=== PATIENT | male | born 1975 | race Caucasian/White ===

== ENCOUNTER 2022-07-16 15:59 | Emergency (ER) | payer OTHER, SELFPAY ==
[2022-07-16 16:15] VITALS: BP 117/81; PULSE 105; RESP 18; TEMP 36.9; O2SAT 96
--- NOTE | 2022-07-16 17:22 | XRR_ITS ---
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 Views: 3 or more views. COMPARISON: No relevant prior studies available. FINDINGS: Bones/joints: Severe osteoarthritis of the tibiotalar joint. Soft tissues: Normal. XR/XR ankle RT min 3V* [id number] IMPRESSION: Severe osteoarthritis of the tibiotalar joint.
[2022-07-16 17:39] VITALS: BP 155/100; PULSE 101; RESP 18; O2SAT 97
--- NOTE | 2022-07-16 17:42 | ED_ITS ---
HPI - Extremity Problem General: Chief complaint: Extremity Injury, Lower Stated complaint: tree fell on right leg Time Seen by Provider: 07/16/22 17:42 History of Present Illness: 46-year-old male patient comes in today for complaints of injury to the right ankle. Patient reports he was cutting down a tree when part of the tree came down and struck his right ankle. Patient does have a history of prior fracture to the ankle with repair. Patient appears nontoxic. Patient appears in moderate to severe pain. Associated symptoms: Deny chest pain or fever(s) Review of Systems Const: Denies: fever(s) Card: Denies: chest pain Resp: Denies: dyspnea Musc: Reports: extremity pain Physical Exam Const: COMMON NORMALS: alert HENMT: COMMON NORMALS: normocephalic HEAD & SCALP: normocephalic Resp: COMMON NORMALS: normal respiratory effort and clear to auscultation bilaterally AUSCULTATION: clear to auscultation bilaterally Cardio: COMMON NORMALS: regular rate and regular rhythm RATE: regular rate RHYTHM: regular rhythm Extremity: RIGHT LOWER EXTREMITY: Yes foot & digits (Swelling, light bruising, abrasion anterior ankle. Decreased range of velma) Right ankle: Yes inspection, Yes palpation, Yes ROM and Yes neurovascular exam (Distal pulse and cap refill i ntact) Neuro: SENSORIUM/ORIENTATION: Yes alert Skin: TRAUMA: abrasion (Superficial abrasion to the anterior right ankle) Course Vital Signs: Vital signs: Vital Signs Temperature 98.4 F 07/16/22 16:15 Pulse Rate 101 H 07/16/22 17:39 Respiratory Rate 18 07/16/22 17:39 Blood Pressure 155/100 07/16/22 17:39 Pulse Oximetry 97 07/16/22 17:39 Oxygen Delivery Me thod 07/16/22 17:39 MDM - Extremity (Nontraumatic) Medical Decision Making 46-year-old male patient comes in today for injury to the right ankle. On exam patient appears nontoxic. Patient does have a injury to the ankle with some swelling and bruising. There is also is a superficial abrasion to the anterior part of the ankle. Differential diagnosis includes but not limited to sprain, dislocation, fracture. X-ray notes significant arthritis to the ankle from his prior injury. Patient did report that he did have a history of infection in the joint. Patient was recommended to use acetaminophen ibuprofen for pain and inflammation. Hydrocodone for severe pain. And follow-up with primary care in 2 to 3 days for recheck. Patient reported understanding and agreed to plan. Discharge Plan Discharge Patient Disposition: Home Clinical Impression: Contusion of ankle, right Qualifiers: Encounter type: initial encounter Qualified Code(s): S90.01XA - Contusion of right ankle, initial encounter Condition: Stable Prescriptions: New hydrocodone-acetaminophen 5-325 mg tablet 1 tab PO Q8H PRN (Reason: pain (scale score 7-10)) Qty: 10 0RF Discharge Orders: Discharge ED (Routine); Ordered 07/16/22 Ordered By: Tk Boyle Referrals: Murray Camacho III, DO [Primary Care Provider] - Discharge Diet: Usual diet Discharge Activity: Increase activity as tolerated Patient Instructions: Musculoskeletal Pain (ED) Activity Restrictions/Additional Instructions: Elevate and rest ankle. Use ice or heat for further pain relief. Use Tylenol and ibuprofen to help control pain. Use hydrocodone for severe pain. Follow-up with primary care in 1 week for recheck. Return to ED for new concerns. Coding Level of Care Code ED Residential Recycle Driver for Chris Georges
[2022-07-16] MEDS: HYDROcodone-acetaminophen 10-325 mg Tablet 1 TAB PO (17:58)
[2022-07-16 18:30] VITALS: PULSE 92; RESP 18; O2SAT 98
== END 2022-07-16 18:33 | disposition home or self-care (01) ==
PROVIDERS: Emergency Provider Nurse Practitioner Family; PCP Family Medicine
DX: S90.01XA Contusion of right ankle, initial encounter (principal); W20.8XXA Other cause of strike by thrown, projected or falling object, initial encounter
CPT/HCPCS: 73610; 99283; E0114

== ENCOUNTER 2022-09-21 13:38 | Emergency (ER) | payer OTHER, SELFPAY ==
[2022-09-21 13:55] VITALS: PULSE 101; RESP 14; TEMP 36.8; O2SAT 95; BMI 32.1
--- NOTE | 2022-09-21 14:10 | ED_ITS ---
HPI - Male Genitourinary General: Chief complaint: Urogenital-Male Stated complaint: Unable to Urinate for 3 days Time Seen by Provider: 09/21/22 14:10 History of Present Illness: 46-year-old gentleman presenting due to urinary pain and penile discharge with concern for new recent sexual partner. Describes onset of symptoms this morning. Has had purulent discharge as well as pain with urination. Also describes pain in the perennial region however no testicular pain or swelling. No flank pain. No fevers. Denies similar episodes in the past. No other specific changes in health, exacerbating, or alleviating factors identified. Onset (ago): hour(s) Severity: severe Exacerbating factors: urination Review of Systems General: Reports: 10 or more systems reviewed and unremarkable except in HPI and below PFSH ED PFSH: Medical History (Updated 10/02/22 @ 00:06 by Abdi Gill MD) No significant past medical history Surgical History (Updated 10/02/22 @ 00:06 by Abdi Gill MD) No significant past surgical history Physical Exam Const: COMMON NORMALS: alert GENERAL APPEARANCE: cooperative and well developed HENMT: COMMON NORMALS: normocephalic and atraumatic HEAD & SCALP: normocephalic and atraumatic THROAT: posterior oropharynx normal Eye: COMMON NORMALS: conjunctivae normal CONJUNCTIVA: Yes conjunctivae normal SCLERA: sclerae normal Neck/C-Spine: COMMON NORMALS: supple GENERAL: Yes trachea midline Resp: COMMON NORMALS: clear to auscultation bilaterally EFFORT & INSPECTION: Yes able to speak in complete sentences AUSCULTATION: clear to auscultation bilaterally Cardio: COMMON NORMALS: regular rate and regular rhythm RATE: regular rate RHYTHM: regular rhythm GI: COMMON NORMALS: Soft to palpation PALPATION: Yes Soft to palpation and No Tenderness to palpation present (GI) : OTHER: Purulent discharge from the urethral meatus, tenderness of the glans. No evidence of balanitis. No testicular tenderness or swelling. No inguinal abnormalities. Extremity: GENERAL: Yes normal exam except as noted and No edema Neuro: COMMON NORMALS: moves all extremities SENSORIUM/ORIENTATION: Yes alert and No Orientation impaired Psych: COMMON NORMALS: mental status grossly normal and Normal thought process present THOUGHT PROCESS: Normal thought process present Course Vital Signs: Vital signs: Vital Signs Temperature 98.3 F 09/21/22 13:55 Pulse Rate 81 09/21/22 16:28 Respiratory Rate 16 09/21/22 16:28 Blood Pressure 149/101 09/21/22 16:28 Pulse Oximetry 94 09/21/22 16:28 Oxygen Delivery Me thod Room Air 09/21/22 16:28 MDM - Male Medical Decision Making 46-year-old gentleman presenting with urinary pain and discharge with concern over new recent sexual partner. Exam as above. Patient is nontoxic. Analgesia given. Patient unable to urinate despite analgesia. Bladder scan does not reveal significant elevation in urine volume and therefore BMP and IV fluid bolus ordered. Renal function and electrolytes unremarkable. Additional analgesia given. Discussed with patient that he will be empirically treated for sexually transmitted infection. Urinalysis and STI screen pending at time of discharge The results of ED evaluation were discussed with the patient including prescriptions and/or symptomatic cares (if applicable) including appropriate and responsible use, followup plan, and return precautions. The patient verbalized understanding and felt safe for discharge. Medical Records I reviewed the patient's medical records. Lab Data I reviewed the patient's lab results. 09/21/22 16:10 Laboratory Results Sodium 137 mmol/L (136-145) 09/21/22 16:10 Potassium 3.6 mmol/L (3.5-5.1) 09/21/22 16:10 Chloride 100 mmol/L (98-107) 09/21/22 16:10 Carbon Dioxide 23 mmol/L (22-29) 09/21/22 16:10 Anion Gap 17.6 (5-19) 09/21/22 16:10 BUN 7 mg/dL (6-20) 09/21/22 16:10 Creatinine 0.8 mg/dL (0.7-1.2) 09/21/22 16:10 GFR Calculation 104.1 mL/min (90-130) 09/21/22 16:10 Glucose 84 mg/dL (65-115) 09/21/22 16:10 Calculated Osmolality 281 mOsm/kg (285-295) L 09/21/22 16:10 Calcium 9.0 mg/dL (8.5-10.5) 09/21/22 16:10 Urine Color Red (Yellow) 09/21/22 17:25 Urine Appearance Cloudy (CLEAR) A 09/21/22 17:25 Urine pH 5 (5-7) 09/21/22 17:25 Ur Specific [place] 1.025 (1.005-1.030) 09/21/22 17:25 Urine Protein 1+ (Negative) H 09/21/22 17:25 Urine Glucose (UA) Norm (Normal) 09/21/22 17:25 Urine Ketones Negative (Negative) 09/21/22 17:25 Urine Blood 2+ (Negative) H 09/21/22 17:25 Urine Nitrate Negative (Negative) 09/21/22 17:25 Urine Bilirubin 1+ (Negative) H 09/21/22 17:25 Urine Urobilinogen 1 mg/dL (Negative) H 09/21/22 17:25 Ur Leukocyte Esterase 2+ (Negative) H 09/21/22 17:25 Urine RBC 5-10 /hpf (0-2) H 09/21/22 17:25 Urine WBC 40-55 /hpf (0-5) H 09/21/22 17:25 Ur Squamous Epith Cells 0-4 /hpf (0-5) H 09/21/22 17:25 Amorphous Sediment Not Reportable 09/21/22 17:25 Urine Bacteria Trace /hpf (NONE) 09/21/22 17:25 Urine Mucus 1+ /hpf 09/21/22 17:25 Discharge Plan Discharge Patient Disposition: Home Clinical Impression: Urethritis Condition: Stable Prescriptions: New oxycodone 5 mg tablet 5 mg PO Q4H PRN (Reason: pain) Qty: 10 0RF No Action hydrocodone-acetaminophen 5-325 mg tablet 1 tab PO Q8H PRN (Reason: pain (scale score 7-10)) Qty: 10 0RF Discharge Orders: Discharge ED (Routine); Ordered 09/21/22 Ordered By: Abdi Gill Referrals: Murray Camacho III, [Primary Care Provider] - Discharge Diet: Usual diet Discharge Activity: Resume usual activity Patient Instructions: Nonspecific Urethritis in Men (ED), Opioid Safety Activity Restrictions/Additional Instructions: Thank you for visiting the which may be due to sexually transmitted infection. This will be treated with antibiotics. You may use [id number] medications such as acetaminophen and ibuprofen for pain however please do not exceed the daily recommended dosage as listed on the packaging and please keep in mind that many namebrand medications contain the same active ingredients. Please avoid these medications if previously instructed to do so by another physician due to other underlying medical condition. I will also prescribe a short course of oxycodone for uncontrolled pain, use this cautiously as it is an opioid. Please follow-up with your primary care provider. Return to the emergency department for uncontrolled symptoms or anything else that you are concerned about and feel needs emergency department evaluation. Coding Level of Care Code ED Sound Truck Operator for Chris Georges
[2022-09-21 14:46] VITALS: RESP 16
[2022-09-21] MEDS: ketorolac 30 mg/mL INJ IM (14:46)
[2022-09-21] MEDS: morphine 4 mg/mL SDV 1 mL IM (14:46)
[2022-09-21] MEDS: metroNIDAZOLE 500 MG Tablet 2000 MG PO (14:47)
[2022-09-21] MEDS: cefTRIAXone 1,000 MG in water for injection-sterile 2.1 ML 1 MG IM (14:47)
[2022-09-21] MEDS: doxycycline 100 mg Tablet PO (14:47)
[2022-09-21] MEDS: sodium chloride 0.9% 1,000 ML 999 ML IV (16:19)
[2022-09-21 16:20] VITALS: RESP 16
[2022-09-21] MEDS: oxyCODONE 5 mg IR Tab/Cap PO (16:20)
[2022-09-21 16:28] VITALS: BP 149/101; PULSE 81; RESP 16; O2SAT 94
[2022-09-21 16:33] LABS: Anion Gap 17.6 (5-19); Blood Urea Nitrogen 7 mg/dL (6-20); Carbon Dioxide 23 mmol/L (22-29); Chloride 100 mmol/L (98-107); Glomerular Filtration Rate 104.1 mL/min (90-130); Glucose 84 mg/dL (65-115); Osmolality Calculated 281 mOsm/kg (285-295); Potassium 3.6 mmol/L (3.5-5.1); Sodium 137 mmol/L (136-145)
[2022-09-21 18:16] LABS: Add Urine Microscopic? YES; Bilirubin Urine 1+ (Negative); Blood Urine 2+ (Negative); Glucose Urine UA Norm (Normal); Ketones Urine Negative (Negative); Leukocyte Esterase Urine 2+ (Negative); Nitrate Urine Negative (Negative); Protein Urine 1+ (Negative); Specific Gravity, Urine 1.025 (1.005-1.030); Urine Appearance Cloudy (CLEAR); Urine Color Red (Yellow); Urobilinogen Urine 1 mg/dL (Negative); pH Urine 5 (5-7)
[2022-09-21 18:17] LABS: Squamous Epithelial Cell Urine 0-4 /hpf (0-5); WBC Urine 40-55 /hpf (0-5)
[2022-09-21 18:18] LABS: Add Urine Culture? Yes; Bacteria Urine TRACE /hpf; Mucus Urine 1+ /hpf
--- NOTE | 2022-09-22 17:08 | PC.NURSE ---
Patient contacted about Positive Gonorrhea and Chlamydia test. Pt advised to abstain from sexual intercourse until clear of discharge and contact sexual partners.
== END 2022-09-21 17:30 | disposition home or self-care (01) ==
PROVIDERS: Emergency Provider Emergency Medicine; PCP Family Medicine
DX: N34.2 Other urethritis (principal); Z20.2 Contact with and (suspected) exposure to infections with a predominantly sexual mode of transmission
CPT/HCPCS: 36415; 51798; 80048; 81001; 87086; 87491; 87591; 96372; 99284; J0696; J1885; J2270; J7030

== ENCOUNTER 2022-10-11 17:06 | Emergency (ER) | payer OTHER, SELFPAY ==
[2022-10-11 17:13] VITALS: PULSE 104; RESP 20; TEMP 37.1; O2SAT 94; BMI 28.2
[2022-10-11] MEDS: LORazepam 2 mg Tablet PO (17:33)
--- NOTE | 2022-10-11 17:47 | W.ED.PSYCHS ---
Documented by User: Lonnie Carrasco MD 10/15/22 17:19 HPI - Psych General: Chief Complaint: Psychiatric Symptoms Stated Complaint: psych eval Time Seen by Provider: 10/11/22 17:25 Source: patient Mode of arrival: ambulatory Limitations: no limitations History of Present Illness: 46-year-old male states that he has been under a lot of stress and he has been feeling very depressed. He states he is feels extremely depressed he is tearful and crying here. He denies any suicidal or homicidal ideations he denies any worsening improving factors. He is not on any psych meds. Associated symptoms: Reports depression; Deny suicidal ideation Review of Systems Const: Denies: fever(s), chills, body aches or change in appetite ENMT: Denies: throat pain or dental pain Card: Denies: chest pain Resp: Denies: dyspnea GI: Denies: abdominal pain, nausea, vomiting or diarrhea : Denies: dysuria Musc: Denies: neck pain or back pain Skin/Breast: Denies: rash Neuro: Denies: headache(s) Psych: Reports: depression; Denies: suicidal ideation [facility] ED PFSH: Medical History No significant past medical history Surgical History No significant past surgical history Physical Exam Const: COMMON NORMALS: patient oriented x3 HENMT: COMMON NORMALS: normocephalic and atraumatic HEAD & SCALP: normocephalic and atraumatic Eye: COMMON NORMALS: conjunctivae normal CONJUNCTIVA: Yes conjunctivae normal Neck/C-Spine: COMMON NORMALS: supple Chest: COMMONS NORMALS: normal inspection of the chest Resp: COMMON NORMALS: normal respiratory effort Cardio: COMMON NORMALS: regular rate and No murmurs present (Cardio) RATE: regular rate GI: INSPECTION: Yes normal to inspection Extremity: COMMON NORMALS: normal to inspection and full ROM Neuro: COMMON NORMALS: patient oriented x3, moves all extremities and no focal motor deficits Psych: COMMON NORMALS: mental status grossly normal, Normal thought process present and cooperative MOOD & AFFECT: Yes depressed mood, Yes sad and Yes tearful THOUGHT PROCESS: Normal thought process present THOUGHT CONTENT: No Suicidality present Skin: COMMON NORMALS: no rashes or lesions noted and no wounds GENERAL SKIN EXAM: no rashes or lesions noted Course Vital Signs: Vital signs: Vital Signs Temperature 98.8 F 10/11/22 17:13 Pulse Rate 104 H 10/11/22 17:13 Respiratory Rate 20 H 10/11/22 17:13 Pulse Oximetry 94 10/11/22 17:13 Oxygen Delivery Me thod Room Air 10/11/22 17:13 MDM - Psych Medical Decision Making Patient presents here with depression patient's care turned over to Dr. Powers for further evaluation and pending blood work. He has not made any suicidal or homicidal statements here. Lab Data 10/11/22 17:42 10/11/22 17:42 Laboratory Results WBC 3.8 10^3/uL (4.0-10.0) L 10/11/22 17:42 RBC 4.62 10^6/uL (4.1-5.3) 10/11/22 17:42 Hgb 15.6 g/dL (11.7-16.6) 10/11/22 17:42 Hct 43.0 % (42.0-52.0) 10/11/22 17:42 MCV 93.1 fl (80-94) 10/11/22 17:42 MCH 33.8 pg (28.0-34.0) 10/11/22 17:42 MCHC 36.3 g/dL (30.0-36.0) H 10/11/22 17:42 RDW 13.3 % (12.1-15.1) 10/11/22 17:42 Plt Count 188 10^3/cmm (130-400) 10/11/22 17:42 MPV 9.0 fL (7.4-10.4) 10/11/22 17:42 Neut % (Auto) 51.2 % 10/11/22 17:42 Lymph % (Auto) 36.3 % 10/11/22 17:42 [place] % (Auto) 10.3 % 10/11/22 17:42 Eos % (Auto) 1.1 % 10/11/22 17:42 Baso % (Auto) 0.8 % 10/11/22 17:42 Neut # (Auto) 1.95 10^3/uL (1.8-7.7) 10/11/22 17:42 Lymph # (Auto) 1.4 10^3/uL (0.8-4.8) 10/11/22 17:42 [place] # (Auto) 0.4 10^3/uL (0.2-0.9) 10/11/22 17:42 Eos # (Auto) 0.0 10^3/uL (0.0-0.8) 10/11/22 17:42 Baso # (Auto) 0.0 10^3/uL (0.0-0.1) 10/11/22 17:42 Nucleated RBC % (auto) 0 % 10/11/22 17:42 Nucleated RBCs # 0.0 /100WBC 10/11/22 17:42 Sodium 138 mmol/L (136-145) 10/11/22 17:42 Potassium 3.5 mmol/L (3.5-5.1) 10/11/22 17:42 Chloride 99 mmol/L (98-107) 10/11/22 17:42 Carbon Dioxide 25 mmol/L (22-29) 10/11/22 17:42 Anion Gap 17.5 (5-19) 10/11/22 17:42 BUN 15 mg/dL (6-20) 10/11/22 17:42 Creatinine 1.0 mg/dL (0.7-1.2) 10/11/22 17:42 GFR Calculation 80.4 mL/min (90-130) L 10/11/22 17:42 Glucose 100 mg/dL (65-115) 10/11/22 17:42 Calculated Osmolality 287 mOsm/kg (285-295) 10/11/22 17:42 Calcium 8.4 mg/dL (8.5-10.5) L 10/11/22 17:42 Total Bilirubin 0.8 mg/dL (0.15-1.2) 10/11/22 17:42 AST 149 U/L (0-40) H 10/11/22 17:42 ALT 51 U/L (0-41) H 10/11/22 17:42 Alkaline Phosphatase 177 U/L (40-130) H 10/11/22 17:42 Total Protein 6.5 g/dL (6.6-8.7) L 10/11/22 17:42 Albumin 4.1 g/dL (3.5-5.2) 10/11/22 17:42 Globulin 2.4 g/dL (1.3-4.6) 10/11/22 17:42 Salicylates < 0.3 mg/dL (3-10) L 10/11/22 17:42 Urine Opiates Screen Negative ng/mL (Negative) 10/11/22 18:41 Acetaminophen < 5.0 ug/mL (10-30) L 10/11/22 17:42 Ur Barbiturates Screen Negative ng/mL (Negative) 10/11/22 18:41 Ur Phencyclidine Scrn Negative ng/mL (Negative) 10/11/22 18:41 Ur Amphetamines Screen Negative ng/mL (Negative) 10/11/22 18:41 U Benzodiazepines Scrn Negative ng/mL (Negative) 10/11/22 18:41 Urine Cocaine Screen Negative ng/mL (Negative) 10/11/22 18:41 U Marijuana (THC) Screen Negative ng/mL (Negative) 10/11/22 18:41 Ethyl Alcohol 244 mg/dL (0-10) H 10/11/22 17:42 Discharge Plan Discharge Patient Disposition: Left Against Medical Advice Clinical Impression: Depression, Alcohol intoxication Condition: Stable Prescriptions: No Action hydrocodone-acetaminophen 5-325 mg tablet 1 tab PO Q8H PRN (Reason: pain (scale score 7-10)) Qty: 10 0RF oxycodone 5 mg tablet 5 mg PO Q4H PRN (Reason: pain) Qty: 10 0RF Discharge Orders: Discharge ED (Routine); Ordered 10/11/22 Ordered By: Abdi Gill Referrals: Murray Camacho III, [Primary Care Provider] - Discharge Diet: Usual diet Discharge Activity: Resume usual activity Patient Instructions: Depression (ED), Alcohol Intoxication (ED), Suicide Prevention (ED) Activity Restrictions/Additional Instructions: Thank you for visiting the emergency department. You were seen evaluate for depression. Your alcohol level was elevated consistent with alcohol intoxication. We recommend inpatient management however given your reported symptoms and adamant denial of suicidal or homicidal ideation we cannot hold you against her will. [facility] [place] [phone] If you or someone you care for is experiencing a psychiatric emergency, please call the crisis hotline ([facility]) 24-hours a day, 7 days a week at [phone]. The crisis stabilization unit on the south side ([address]) of the hospital campus has walk-in hours from 11 AM to 9 PM daily. I recommend going there tomorrow in the morning. Return for thoughts of suicide or anything else that you are concerned about and feel needs emergency department evaluation. Stand Alone Forms: Against Medical Advice Sign Out Sign Out Data: Patient Sign Out occurred on 10/11/22 at 17:58. Patient's care was discussed, and care was transferred from to Abdi Gill MD. Coding Level of Care Code ED Brand Analyst for Chg Fwd Documented by User: Abdi Gill MD 10/23/22 08:47 HPI - Psych General: Chief Complaint: Psychiatric Symptoms Stated Complaint: psych eval Time Seen by Provider: 10/11/22 17:25 PFSH ED PFSH: Medical History No significant past medical history Surgical History No significant past surgical history Course Vital Signs: Vital signs: Vital Signs Temperature 98.8 F 10/11/22 17:13 Pulse Rate 104 H 10/11/22 17:13 Respiratory Rate 20 H 10/11/22 17:13 Pulse Oximetry 94 10/11/22 17:13 Oxygen Delivery Me thod Room Air 10/11/22 17:13 MDM - Psych Medical Decision Making Patient presents here with depression patient's care turned over to Dr. Powers for further evaluation and pending blood work. He has not made any suicidal or homicidal statements here. Patient care handoff received from Dr. Carrasco pending completion of evaluation. Laboratory studies reviewed. Patient serially reassessed and achieved clinical sobriety. He continues to adamantly deny suicidal or homicidal ideation. He desires discharge. Initially he was agreeable to wait for tele consult with psychiatry service. Subsequently he decided to leave. Though he is not suicidal or homicidal he is symptoms are quite significant and therefore he left AGAINST MEDICAL ADVICE. He does have capacity to make medical decisions. Abdi Gill MD Emergency Medicine Lab Data 10/11/22 17:42 10/11/22 17:42 Laboratory Results WBC 3.8 10^3/uL (4.0-10.0) L 10/11/22 17:42 RBC 4.62 10^6/uL (4.1-5.3) 10/11/22 17:42 Hgb 15.6 g/dL (11.7-16.6) 10/11/22 17:42 Hct 43.0 % (42.0-52.0) 10/11/22 17:42 MCV 93.1 fl (80-94) 10/11/22 17:42 MCH 33.8 pg (28.0-34.0) 10/11/22 17:42 MCHC 36.3 g/dL (30.0-36.0) H 10/11/22 17:42 RDW 13.3 % (12.1-15.1) 10/11/22 17:42 Plt Count 188 10^3/cmm (130-400) 10/11/22 17:42 MPV 9.0 fL (7.4-10.4) 10/11/22 17:42 Neut % (Auto) 51.2 % 10/11/22 17:42 Lymph % (Auto) 36.3 % 10/11/22 17:42 [place] % (Auto) 10.3 % 10/11/22 17:42 Eos % (Auto) 1.1 % 10/11/22 17:42 Baso % (Auto) 0.8 % 10/11/22 17:42 Neut # (Auto) 1.95 10^3/uL (1.8-7.7) 10/11/22 17:42 Lymph # (Auto) 1.4 10^3/uL (0.8-4.8) 10/11/22 17:42 [place] # (Auto) 0.4 10^3/uL (0.2-0.9) 10/11/22 17:42 Eos # (Auto) 0.0 10^3/uL (0.0-0.8) 10/11/22 17:42 Baso # (Auto) 0.0 10^3/uL (0.0-0.1) 10/11/22 17:42 Nucleated RBC % (auto) 0 % 10/11/22 17:42 Nucleated RBCs # 0.0 /100WBC 10/11/22 17:42 Sodium 138 mmol/L (136-145) 10/11/22 17:42 Potassium 3.5 mmol/L (3.5-5.1) 10/11/22 17:42 Chloride 99 mmol/L (98-107) 10/11/22 17:42 Carbon Dioxide 25 mmol/L (22-29) 10/11/22 17:42 Anion Gap 17.5 (5-19) 10/11/22 17:42 BUN 15 mg/dL (6-20) 10/11/22 17:42 Creatinine 1.0 mg/dL (0.7-1.2) 10/11/22 17:42 GFR Calculation 80.4 mL/min (90-130) L 10/11/22 17:42 Glucose 100 mg/dL (65-115) 10/11/22 17:42 Calculated Osmolality 287 mOsm/kg (285-295) 10/11/22 17:42 Calcium 8.4 mg/dL (8.5-10.5) L 10/11/22 17:42 Total Bilirubin 0.8 mg/dL (0.15-1.2) 10/11/22 17:42 AST 149 U/L (0-40) H 10/11/22 17:42 ALT 51 U/L (0-41) H 10/11/22 17:42 Alkaline Phosphatase 177 U/L (40-130) H 10/11/22 17:42 Total Protein 6.5 g/dL (6.6-8.7) L 10/11/22 17:42 Albumin 4.1 g/dL (3.5-5.2) 10/11/22 17:42 Globulin 2.4 g/dL (1.3-4.6) 10/11/22 17:42 Salicylates < 0.3 mg/dL (3-10) L 10/11/22 17:42 Urine Opiates Screen Negative ng/mL (Negative) 10/11/22 18:41 Acetaminophen < 5.0 ug/mL (10-30) L 10/11/22 17:42 Ur Barbiturates Screen Negative ng/mL (Negative) 10/11/22 18:41 Ur Phencyclidine Scrn Negative ng/mL (Negative) 10/11/22 18:41 Ur Amphetamines Screen Negative ng/mL (Negative) 10/11/22 18:41 U Benzodiazepines Scrn Negative ng/mL (Negative) 10/11/22 18:41 Urine Cocaine Screen Negative ng/mL (Negative) 10/11/22 18:41 U Marijuana (THC) Screen Negative ng/mL (Negative) 10/11/22 18:41 Ethyl Alcohol 244 mg/dL (0-10) H 10/11/22 17:42 Discharge Plan Discharge Patient Disposition: Left Against Medical Advice Clinical Impression: Depression, Alcohol intoxication Condition: Stable Prescriptions: No Action hydrocodone-acetaminophen 5-325 mg tablet 1 tab PO Q8H PRN (Reason: pain (scale score 7-10)) Qty: 10 0RF oxycodone 5 mg tablet 5 mg PO Q4H PRN (Reason: pain) Qty: 10 0RF Discharge Orders: Discharge ED (Routine); Ordered 10/11/22 Ordered By: Abdi Gill Referrals: Murray Camacho III, [Primary Care Provider] - Discharge Diet: Usual diet Discharge Activity: Resume usual activity Patient Instructions: Depression (ED), Alcohol Intoxication (ED), Suicide Prevention (ED) Activity Restrictions/Additional Instructions: Thank you for visiting the emergency department. You were seen evaluate for depression. Your alcohol level was elevated consistent with alcohol intoxication. We recommend inpatient management however given your reported symptoms and adamant denial of suicidal or homicidal ideation we cannot hold you against her will. [facility] [place] [phone] If you or someone you care for is experiencing a psychiatric emergency, please call the crisis hotline ([employer]) 24-hours a day, 7 days a week at [phone]. The crisis stabilization unit on the south side ([address]) of the hospital campus has walk-in hours from 11 AM to 9 PM daily. I recommend going there tomorrow in the morning. Return for thoughts of suicide or anything else that you are concerned about and feel needs emergency department evaluation. Stand Alone Forms: Against Medical Advice Sign Out Sign Out Data: Patient Sign Out occurred on 10/11/22 at 17:58. Patient's care was discussed, and care was transferred from to Abdi Gill MD. Coding Level of Care Code ED Brand Analyst for Chris Georges
[2022-10-11 17:49] LABS: Basophils % 0.8 %; Eosinophils % 1.1 %; Hemoglobin 15.6 g/dL (11.7-16.6); Lymphocytes # 1.4 10^3/uL (0.8-4.8); Lymphocytes % 36.3 %; Mean Corpuscular HGB Conc 36.3 g/dL (30.0-36.0); Mean Corpuscular Hemoglobin 33.8 pg (28.0-34.0); Mean Corpuscular Volume 93.1 fl (80-94); Monocytes # 0.4 10^3/uL (0.2-0.9); Monocytes % 10.3 %; Neutrophils # 1.95 10^3/uL (1.8-7.7); Neutrophils % 51.2 %; Nucleated Red Blood Cells % 0 %; Platelet Count 188 10^3/cmm (130-400); Red Blood Count 4.62 10^6/uL (4.1-5.3); Red Cell Distribution Width 13.3 % (12.1-15.1); White Blood Count 3.8 10^3/uL (4.0-10.0)
[2022-10-11] MEDS: ondansetron 4 MG Tablet PO (18:00)
--- NOTE | 2022-10-11 18:01 | PC.NURSE ---
PT IN ROOM SITTING CALM IN A CHAIR
[2022-10-11 18:07] LABS: Alanine Aminotransferase 51 U/L (0-41); Albumin Level 4.1 g/dL (3.5-5.2); Alcohol Level 244 mg/dL (0-10); Alkaline Phosphatase 177 U/L (40-130); Anion Gap 17.5 (5-19); Aspartate Amino Transferase 149 U/L (0-40); Blood Urea Nitrogen 15 mg/dL (6-20); Calcium 8.4 mg/dL (8.5-10.5); Carbon Dioxide 25 mmol/L (22-29); Chloride 99 mmol/L (98-107); Globulin 2.4 g/dL (1.3-4.6); Glomerular Filtration Rate 80.4 mL/min (90-130); Glucose 100 mg/dL (65-115); Osmolality Calculated 287 mOsm/kg (285-295); Potassium 3.5 mmol/L (3.5-5.1); Sodium 138 mmol/L (136-145); Total Bilirubin 0.8 mg/dL (0.15-1.2); Total Protein 6.5 g/dL (6.6-8.7)
[2022-10-11 18:11] LABS: Acetaminophen < 5.0 ug/mL (10-30); Salicylate < 0.3 mg/dL (3-10)
[2022-10-11] MEDS: ondansetron 2 mg/ML SDV 2 mL 4 MG IM (19:40)
[2022-10-11 20:00] LABS: Amphetamines Screen Urine Negative (Negative); Barbiturates Screen Urine Negative (Negative); Benzodiazepines Screen Urine Negative (Negative); Cocaine Screen Urine Negative (Negative); Opiate Screen Urine Negative (Negative); PCP Screen Urine Negative (Negative); THC Screen Urine Negative (Negative)
[2022-10-11] MEDS: LORazepam 2 mg/mL INJ 1 mL 1 MG IM (20:09)
--- NOTE | 2022-10-11 21:26 | PC.NURSE ---
PT VERBILIZED TO ME THAT HE IS SAD AND JUST WANTS TO GO HOME PT IS IN ROOM WITH FAMILY AND SERVICE DOG. PT IS SITTING ON EDGE OF BED ROCKING, VISIBLE ANXIOUS AND SAD.
[2022-10-11] MEDS: nicotine 14 mg Patch 1 PATCH TRANSDERMA (21:59)
--- NOTE | 2022-10-11 22:53 | PC.NURSE ---
TWO NURSES HAVE TRIED TO REACH DR HOYOS 6/7 TIMES WITH NO ANSWER. PT JUST WANTS TO GO HOME AND FOLLOW UP WITH [facility] TOMORROW .
== END 2022-10-11 23:02 | disposition left against medical advice (07) ==
PROVIDERS: Emergency Medicine; Emergency Provider Emergency Medicine; PCP Family Medicine
DX: F32.A Depression, unspecified (principal); F10.129 Alcohol abuse with intoxication, unspecified; Y90.8 Blood alcohol level of 240 mg/100 ml or more
CPT/HCPCS: 36415; 80053; 80306; 80307; 85025; 96372; 99284; J2060; J2405; Q0162

== ENCOUNTER 2022-11-03 17:19 | Emergency (ER) | payer OTHER, SELFPAY ==
--- NOTE | 2022-11-03 17:41 | ECG_ITS ---
[facility] Test Date: 2022-11-03 Pat Name: Trevor Martin Department: Room: Gender: Male Sap Sd Analyst: : 1975 Requested By: Rojas Brito Order Number: [id number] Vincent MD: Toan Nova M.D. Measurements Intervals [place] Rate: 111 P: 35 [place]: 142 QRS: 24 QRSD: 73 T: 24 QT: 297 QTc: 405 Interpretive Statements SINUS TACHYCARDIA No previous ECG available for comparison Electronically Signed On 11-05-2022 8:37:15 CDT by Toan Nova M.D. [id number]
[2022-11-03 17:47] VITALS: BP 168/87; PULSE 112; RESP 22; TEMP 38.4; O2SAT 93
--- NOTE | 2022-11-03 17:52 | PC.NURSE ---
Notified Dr. Keane for triage nurse that patient meets sepsis criteria.
--- NOTE | 2022-11-03 18:20 | XRR_ITS ---
PROCEDURE INFORMATION: Exam: XR Chest Exam date and time: 11/03/2022 7:07 PM Age: 46 years old Clinical indication: Shortness of breath; Additional info: SOB TECHNIQUE: Imaging protocol: Radiologic exam of the chest. Views: 1 view. COMPARISON: No relevant prior studies available. FINDINGS: Lungs: Peribronchial thickening. No consolidation. Pleural spaces: Unremarkable. No pleural effusion. No pneumothorax. Heart/Mediastinum: Unremarkable. No cardiomegaly. Bones/joints: Unremarkable. XR/XR chest 1V portable [id number] IMPRESSION: Peribronchial thickening suggestive of an infectious or inflammatory bronchitis.
--- NOTE | 2022-11-03 18:21 | ECG_ITS ---
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 Measurements Intervals [place] Rate: 103 P: 19 [place]: 144 QRS: 24 QRSD: 81 T: 34 QT: 298 QTc: 392 Interpretive Statements SINUS TACHYCARDIA No previous ECG available for comparison Electronically Signed On 11-05-2022 8:33:05 CDT by Toan Nova M.D. [id number]
[2022-11-03 19:06] LABS: Basophils % 0.3 %; Eosinophils # 0.1 10^3/uL (0.0-0.8); Eosinophils % 1.3 %; Hematocrit 42.4 % (42.0-52.0); Hemoglobin 14.2 g/dL (11.7-16.6); Lymphocytes # 0.4 10^3/uL (0.8-4.8); Lymphocytes % 5.5 %; Mean Corpuscular HGB Conc 33.5 g/dL (30.0-36.0); Mean Corpuscular Volume 101.4 fl (80-94); Mean Platelet Volume 9.3 fL (7.4-10.4); Monocytes # 0.5 10^3/uL (0.2-0.9); Monocytes % 6.2 %; Neutrophils % 86.4 %; Nucleated Red Blood Cells % 0 %; Platelet Count 389 10^3/cmm (130-400); Red Blood Count 4.18 10^6/uL (4.1-5.3); Red Cell Distribution Width 17.9 % (12.1-15.1); White Blood Count 7.9 10^3/uL (4.0-10.0)
[2022-11-03 19:07] LABS: SARS Covid-2 Antigen negative (Negative)
[2022-11-03 19:11] LABS: Lactic Sepsis W/Reflex 1.3 mmol/L (0.5-2.2)
[2022-11-03 19:17] LABS: Troponin(5th) Baseline 11 ng/L (0-15)
[2022-11-03 19:21] LABS: Alanine Aminotransferase 32 U/L (0-41); Albumin Level 4.2 g/dL (3.5-5.2); Alkaline Phosphatase 165 U/L (40-130); Anion Gap 11.9 (5-19); Aspartate Amino Transferase 42 U/L (0-40); Blood Urea Nitrogen 6 mg/dL (6-20); Calcium 9.2 mg/dL (8.5-10.5); Carbon Dioxide 27 mmol/L (22-29); Chloride 99 mmol/L (98-107); Creatine Phosphokinase 161 U/L (39-308); Globulin 2.9 g/dL (1.3-4.6); Glomerular Filtration Rate 72.1 mL/min (90-130); Glucose 106 mg/dL (65-115); NT Pro B Type Natriuretic Pept 545 pg/mL (0-125); Osmolality Calculated 276 mOsm/kg (285-295); Potassium 3.9 mmol/L (3.5-5.1); Sodium 134 mmol/L (136-145); Total Bilirubin 0.4 mg/dL (0.15-1.2); Total Protein 7.1 g/dL (6.6-8.7)
[2022-11-03] MEDS: sodium chloride 0.9% 1,000 ML 999 ML IV (19:23)
[2022-11-03 19:24] LABS: D Dimer 0.46 ug/mIFEU (0-0.59)
[2022-11-03] MEDS: ondansetron 2 mg/ML SDV 2 mL 4 MG IVP (19:29)
[2022-11-03] MEDS: dexamethasone 10 mg/mL INJ IVP (19:29)
[2022-11-03] MEDS: ketorolac 30 mg/mL INJ IVP (19:29)
[2022-11-03] MEDS: cefTRIAXone 1,000 MG in sodium chloride 0.9% (plus) 50 ML 100 MG IV (19:30)
[2022-11-03] MEDS: morphine 4 mg/mL SDV 1 mL IVP ×2 (19:30→20:44)
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
[2022-11-03 19:52] VITALS: BP 152/96; PULSE 98; RESP 26; TEMP 37.8; O2SAT 90
[2022-11-03] MEDS: ipratropium-albuterol 3 mL Neb INHALATION (20:04)
[2022-11-03 20:05] VITALS: PULSE 95; RESP 18; O2SAT 96
[2022-11-03 20:07] VITALS: PULSE 95; RESP 18; O2SAT 96
[2022-11-03 20:39] LABS: Troponin 5 2HR Delta -0.6 ABS# (0-10)
[2022-11-03] MEDS: azithromycin 250 mg Tablet 500 MG PO (20:44)
[2022-11-03] MEDS: oxyCODONE-APAP 5-325 mg Tablet 2 TAB PO (21:17)
[2022-11-03 21:21] VITALS: BP 155/93; PULSE 85; RESP 16; O2SAT 92
== END 2022-11-03 21:22 | disposition home or self-care (01) ==
PROVIDERS: Nurse Practitioner; Emergency Provider Emergency Medicine; PCP Family Medicine
DX: J40 Bronchitis, not specified as acute or chronic (principal); Z20.822 Contact with and (suspected) exposure to COVID-19
CPT/HCPCS: 36415; 71045; 80053; 82550; 83605; 83880; 84484; 85025; 85378; 87040; 87426; 93005; 94640; 96374; 96375; 99285; J0696; J1100; J1885; J2270; J2405; J7030; Q0144

== ENCOUNTER 2023-09-11 11:19 | Emergency (ER) | payer OTHER, SELFPAY ==
[2023-09-11 11:25] VITALS: BP 161/50; PULSE 122; TEMP 36.7; O2SAT 97; BMI 31.2
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
[2023-09-11 12:01] VITALS: PULSE 118; RESP 24; O2SAT 95
[2023-09-11] MEDS: LORazepam 2 mg/mL INJ 10 mL MDV IVP (12:10)
[2023-09-11 12:12] LABS: Basophils # 0.1 10^3/uL (0.0-0.1); Basophils % 1.1 %; Eosinophils # 0.1 10^3/uL (0.0-0.8); Eosinophils % 1.3 %; Hematocrit 45.3 % (37-53); Lymphocytes # 1.3 10^3/uL (0.8-4.8); Mean Corpuscular HGB Conc 35.3 g/dL (30-55); Mean Corpuscular Hemoglobin 32.4 pg (27-33); Mean Corpuscular Volume 91.7 fl (82-101); Mean Platelet Volume 9.1 fL (7.4-10.4); Monocytes # 0.8 10^3/uL (0.2-0.9); Monocytes % 16.3 %; Neutrophils # 2.53 10^3/uL (1.8-7.7); Neutrophils % 54.1 %; Nucleated Red Blood Cells % 0 %; Platelet Count 266 10^3/cmm (157-399); Red Blood Count 4.94 10^6/uL (3.85-5.65); Red Cell Distribution Width 12.9 % (12.1-15.1); White Blood Count 4.67 10^3/uL (3.29-11.43)
[2023-09-11 12:28] LABS: Alanine Aminotransferase 286 U/L (0-41); Alcohol Level 263 mg/dL (0-10); Alkaline Phosphatase 203 U/L (40-130); Anion Gap 19.8 (5-19); Aspartate Amino Transferase 393 U/L (0-40); Blood Urea Nitrogen 15 mg/dL (6-20); Calcium 8.2 mg/dL (8.5-10.5); Carbon Dioxide 24 mmol/L (22-29); Chloride 102 mmol/L (98-107); Creatinine Clr Calc Pharmacy 103.3971; Globulin 3.2 g/dL (1.3-4.6); Glomerular Filtration Rate 64.9 mL/min (90-130); Glucose 96 mg/dL (65-115); Osmolality Calculated 295 mOsm/kg (285-295); Potassium 3.8 mmol/L (3.5-5.1); Sodium 142 mmol/L (136-145); Total Bilirubin 1.4 mg/dL (0.15-1.2); Total Protein 7.2 g/dL (6.6-8.7)
[2023-09-11 12:31] LABS: Acetaminophen < 5.0 ug/mL (10-30); Creatine Phosphokinase 636 U/L (39-308); Salicylate < 0.3 mg/dL (3-10)
[2023-09-11 12:40] VITALS: BP 150/107; PULSE 92; O2SAT 93
--- NOTE | 2023-09-11 12:48 | PC.NURSE ---
Assumed care of patient @ 1303. Rounding with patient, He reports that the meds he was given did alright .
--- NOTE | 2023-09-11 13:05 | PC.PHAR ---
[facility]. PT STATES DOCTOR PRESCRIBED STRATTERA 40 MG DAILY FOR 1 WEEK THEN INCREASE TO 80MG DAILY. [facility] 80MG [facility] AND PT TOOK IT. WILL NO LONGER BE TAKING THIS MEDICATION.
[2023-09-11 13:11] LABS: Amphetamines Screen Urine Negative (Negative); Barbiturates Screen Urine Negative (Negative); Benzodiazepines Screen Urine Negative (Negative); Cocaine Screen Urine Negative (Negative); Opiate Screen Urine Negative (Negative); PCP Screen Urine Negative (Negative); THC Screen Urine Positive (Negative)
[2023-09-11 14:33] VITALS: BP 120/89; PULSE 92; RESP 18; O2SAT 95
== END 2023-09-11 14:36 | disposition home or self-care (01) ==
PROVIDERS: Emergency Provider Emergency Medicine; PCP Family Medicine
DX: F41.9 Anxiety disorder, unspecified (principal)
CPT/HCPCS: 80053; 80306; 80307; 82550; 85025; 96374; 99284; J2060

== ENCOUNTER 2023-10-29 16:28 | Inpatient (IN) | payer OTHER, SELFPAY ==
[2023-10-29] VITALS (18 sets, daily range): BP systolic 131–152; BP diastolic 84–109; PULSE 95–115; RESP 18–35; TEMP 36.4; O2SAT 90–95; BMI 27.8
--- NOTE | 2023-10-29 16:49 | ED.C_ITS ---
HPI - Psych 2 General: Chief Complaint: Psychiatric Symptoms Stated Complaint: 11 not eaten, very little water, Alcohol withdr. Time Seen by Provider: 10/29/23 16:36 Source: patient and family Mode of arrival: ambulatory Limitations: no limitations History of Present Illness: 47-year-old male is here with his mother with suicidal ideations. Patient states that he does no longer wants to live and he has not been eating over the last 2 weeks and has been drinking alcohol heavily stating that he just wants to . He has also been having vomiting he states over the last 2 days. He denies any abdominal pain denies any fevers. Associated symptoms: Reports depression and suicidal ideation Review of Systems 2 Const: Denies: fever(s), chills or body aches ENMT: Denies: throat pain or dental pain Card: Denies: chest pain Resp: Denies: dyspnea GI: Reports: nausea and vomiting; Denies: abdominal pain or diarrhea Musc: Denies: neck pain or back pain Skin/Breast: Denies: rash Neuro: Denies: headache(s) Psych: Reports: depression and suicidal ideation PFS ED 2 PFSH: Medical History No significant past medical history Surgical History No significant past surgical history Physical Exam 2 Const: COMMON NORMALS: no acute distress, patient oriented x3 and healthy appearing HENMT: COMMON NORMALS: normocephalic and atraumatic HEAD & SCALP: n ormocephalic and atraumatic Neck/C-Spine: COMMON NORMALS: full ROM and supple Chest: COMMONS NORMALS: normal inspection of the chest Resp: COMMON NORMALS: normal respiratory effort Cardio: COMMON NORMALS: regular rate, regular rhythm and No murmurs present (Cardio) RATE: regular rate RHYTHM: regular rhythm GI: COMMON NORMALS: Normal to inspection, nondistended, normoactive bowel sounds present, Soft to palpation, non-tender and no masses PALPATION: Yes Soft to palpation Extremity: COMMON NORMALS: normal to inspection and full ROM Neuro: COMMON NORMALS: patient oriented x3, moves all extremities and no focal motor deficits Psych: COMMON NORMALS: mental status grossly normal, Normal thought process present and cooperative MOOD & AFFECT: Yes depressed mood THOUGHT PROCESS: Normal thought process present THOUGHT CONTENT: Yes Suicidality present Skin: COMMON NORMALS: no rashes or lesions noted and no wounds GENERAL SKIN EXAM: no rashes or lesions noted Course 2 Vital Signs: Vital signs: Vital Signs Temperature 97.6 F 10/29/23 16:30 Pulse Rate 103 H 10/29/23 19:52 Respiratory Rate 18 10/29/23 19:52 Blood Pressure 143/109 10/29/23 19:52 Pulse Oximetry 90 10/29/23 19:52 Oxygen Delivery Me thod Room Air 10/29/23 16:30 [facility] - Psych Medical Decision Making Patient presents for suicidal ideation he is placed on a 96-hour hold he is also had vomiting found to have elevated liver enzymes likely from his alcoholism. CT ultrasound showed no signs of common bile duct dilatation spoke to the hospitalist who will admit and also spoke to Dr. Canela of psychiatry who is consulted Medical Records I reviewed the patient's medical records. Lab Data I reviewed the patient's lab results. 10/29/23 17:24 10/29/23 17:24 Radiology Impressions Abdomen/Pelvis CT 10/29/23 18:00 IMPRESSION: 1. Nonspecific gallbladder distension. Correlation with ultrasound may be helpful. 2. Question mild haziness about the pancreas or possible motion artifact. Correlate with pancreatic enzymes. Laboratory Results WBC 4.65 10^3/uL (3.29-11.43) 10/29/23 17:24 RBC 4.73 10^6/uL (3.85-5.65) 10/29/23 17:24 Hgb 15.10 g/dL (11.27-16.99) 10/29/23 17: Hct 41.4 % (37-53) 10/29/23 17:24 MCV 87.5 fl (82-101) 10/29/23 17: MCH 31.9 pg (27-33) 10/29/23 17: MCHC 36.5 g/dL (30-55) 10/29/23 17: RDW 13.0 % (12.1-15.1) 10/29/23 17:24 Plt Count 145 10^3/cmm (157-399) L 10/29/23 17: MPV 10.3 fL (7.4-10.4) 10/29/23 17:24 Neut % (Auto) 63.9 % 10/29/23 17:24 Lymph % (Auto) 21.3 % 10/29/23 17:24 [place] % (Auto) 14.0 % 10/29/23 17:24 Eos % (Auto) 0.2 % 10/29/23 17:24 Baso % (Auto) 0.4 % 10/29/23 17:24 Neut # (Auto) 2.97 10^3/uL (1.8-7.7) 10/29/23 17:24 Lymph # (Auto) 1.0 10^3/uL (0.8-4.8) 10/29/23 17:24 [place] # (Auto) 0.7 10^3/uL (0.2-0.9) 10/29/23 17:24 Eos # (Auto) 0.0 10^3/uL (0.0-0.8) 10/29/23 17:24 Baso # (Auto) 0.0 10^3/uL (0.0-0.1) 10/29/23 17:24 Nucleated RBC % (auto) 0 % 10/29/23 17: Nucleated RBCs # 0.0 /100WBC 10/29/23 17: PT 14.50 SECONDS (12.1-14.9) 10/29/23 18:55 INR 1.09 (0.8-1.2) 10/29/23 18:55 Sodium 136 mmol/L (136-145) 10/29/23 17:24 Potassium 3.4 mmol/L (3.5-5.1) L 10/29/23 17:24 Chloride 93 mmol/L (98-107) L 10/29/23 17:24 Carbon Dioxide 28 mmol/L (22-29) 10/29/23 17:24 Anion Gap 18.4 (5-19) 10/29/23 17:24 BUN 14 mg/dL (6-20) 10/29/23 17:24 Creatinine 0.9 mg/dL (0.7-1.2) 10/29/23 17:24 GFR Calculation 90.4 mL/min (90-130) 10/29/23 17:24 Glucose 150 mg/dL (65-115) H 10/29/23 17:24 Calculated Osmolality 285 mOsm/kg (285-295) 10/29/23 17:24 Calcium 7.8 mg/dL (8.5-10.5) L 10/29/23 17:24 Total Bilirubin 3.2 mg/dL (0.15-1.2) H 10/29/23 17:24 AST 527 U/L (0-40) H 10/29/23 17:24 ALT 373 U/L (0-41) H 10/29/23 17:24 Alkaline Phosphatase 350 U/L (40-130) H 10/29/23 17:24 Ammonia 32 umol/L (16-60) 10/29/23 18:55 Total Protein 6.3 g/dL (6.6-8.7) L 10/29/23 17:24 Albumin 3.3 g/dL (3.5-5.2) L 10/29/23 17:24 Globulin 3.0 g/dL (1.3-4.6) 10/29/23 17:24 Lipase 173 U/L (13-60) H 10/29/23 17:24 Salicylates < 0.3 mg/dL (3-10) L 10/29/23 17:24 Acetaminophen < 5.0 ug/mL (10-30) L 10/29/23 17:24 Ethyl Alcohol 397 mg/dL (0-10) H* 10/29/23 17:24 All radiology interpretation(s) finalized by discharge Discharge Plan Discharge Patient Disposition: Admitted As Inpatient Clinical Impression: Suicidal ideation, Vomiting, Alcohol intoxication, Elevated liver enzymes Condition: Stable Prescriptions: No Action trazodone 150 mg Tablet 150 mg PO BEDTIME venlafaxine 225 mg Tablet Extended Release 24hr 225 mg PO QAM Klonopin 1 mg tablet 1 mg PO Q8H PRN (Reason: anxiety) Qty: 7 0RF Referrals: Murray Camacho III, DO [Primary Care Provider] - Coding Level of Care Code ED Property Man for Chris Georges
[2023-10-29] MEDS: LORazepam 2 mg/mL INJ 1 mL IM (17:28)
[2023-10-29 17:50] LABS: Basophils % 0.4 %; Eosinophils % 0.2 %; Hematocrit 41.4 % (37-53); Lymphocytes % 21.3 %; Mean Corpuscular HGB Conc 36.5 g/dL (30-55); Mean Corpuscular Hemoglobin 31.9 pg (27-33); Mean Corpuscular Volume 87.5 fl (82-101); Mean Platelet Volume 10.3 fL (7.4-10.4); Monocytes # 0.7 10^3/uL (0.2-0.9); Neutrophils # 2.97 10^3/uL (1.8-7.7); Neutrophils % 63.9 %; Nucleated Red Blood Cells % 0 %; Platelet Count 145 10^3/cmm (157-399); Red Blood Count 4.73 10^6/uL (3.85-5.65); White Blood Count 4.65 10^3/uL (3.29-11.43)
[2023-10-29 17:54] LABS: Alanine Aminotransferase 373 U/L (0-41); Albumin Level 3.3 g/dL (3.5-5.2); Alkaline Phosphatase 350 U/L (40-130); Anion Gap 18.4 (5-19); Aspartate Amino Transferase 527 U/L (0-40); Blood Urea Nitrogen 14 mg/dL (6-20); Calcium 7.8 mg/dL (8.5-10.5); Carbon Dioxide 28 mmol/L (22-29); Chloride 93 mmol/L (98-107); Creatinine Clr Calc Pharmacy 137.8627; Glomerular Filtration Rate 90.4 mL/min (90-130); Glucose 150 mg/dL (65-115); Osmolality Calculated 285 mOsm/kg (285-295); Potassium 3.4 mmol/L (3.5-5.1); Sodium 136 mmol/L (136-145); Total Bilirubin 3.2 mg/dL (0.15-1.2); Total Protein 6.3 g/dL (6.6-8.7)
[2023-10-29] MEDS: ondansetron 2 mg/ML SDV 2 mL 4 MG IM (17:56)
[2023-10-29 17:58] LABS: Acetaminophen < 5.0 ug/mL (10-30); Salicylate < 0.3 mg/dL (3-10)
[2023-10-29 17:59] LABS: Alcohol Level 397 mg/dL (0-10)
--- NOTE | 2023-10-29 18:00 | CTR_ITS ---
PROCEDURE INFORMATION: Exam: CT Abdomen And Pelvis With Contrast Exam date and time: 10/29/2023 7:23 PM Age: 47 years old Clinical indication: Vomiting; Patient HX: Patient having hallucinations/nausea TECHNIQUE: Imaging protocol: Computed tomography of the abdomen and pelvis with contrast. Radiation optimization: All CT scans at this facility use at least one of these dose optimization techniques: automated exposure control; mA and/or kV adjustment per patient size (includes targeted exams where dose is matched to clinical indication); or iterative reconstruction. Contrast material: [id number]; Contrast volume: 100 ml; Contrast route: INTRAVENOUS (IV); COMPARISON: CR XR chest 1V portable [id number] 11/03/2022 7:07 PM RADIATION DOSE METRICS: Total DLP (mGy-cm): 821 FINDINGS: Liver: Fatty liver. Gallbladder and biliary ducts: Nonspecific gallbladder distension. Pancreas: Question mild haziness about the pancreas or possible motion artifact. Correlate with pancreatic enzymes. Spleen: No splenomegaly. Adrenal glands: Normal. No mass. Kidneys and ureters: Nondiagnostic evaluation of the lower poles of the kidneys due to motion artifact. Otherwise no acute renal abnormality. Stomach and bowel: Colonic diverticulosis without findings of diverticulitis. No bowel dilation. No bowel obstruction. Appendix: The appendix is not identified. There are no focal inflammatory changes in the right lower quadrant. Intraperitoneal space: No free air. No significant fluid collection. Vasculature: There are pelvic phleboliths. Lymph nodes: No enlarged lymph nodes. Urinary bladder: Unremarkable as visualized. Reproductive: Unremarkable as visualized. Bones/joints: Unremarkable. No acute fracture. Soft tissues: Unremarkable. CT/CT abdomen pelvis w con* [id number] IMPRESSION: 1. Nonspecific gallbladder distension. Correlation with ultrasound may be helpful. 2. Question mild haziness about the pancreas or possible motion artifact. Correlate with pancreatic enzymes.
[2023-10-29] MEDS: sodium chloride 0.9% 1,000 ML 999 ML IV (18:52)
[2023-10-29 19:16] LABS: Ammonia 32 umol/L (16-60)
[2023-10-29] MEDS: iohexol 350 mg/mL 500 mL Btl (per mL) IV (19:27)
[2023-10-29 19:35] LABS: INR 1.09 (0.8-1.2)
[2023-10-29] MEDS: multivitamin therapeutic Tablet 1 TAB PO (19:46)
[2023-10-29] MEDS: LORazepam 2 mg/mL INJ 1 mL IVP (19:46)
--- NOTE | 2023-10-29 19:57 | USR_ITS ---
PROCEDURE INFORMATION: Exam: US Abdomen, Limited; Right Upper Quadrant Exam date and time: 10/29/2023 8:20 PM Age: 47 years old Clinical indication: Other: Elevated tbili = 3.2, elevated ast = 527, elevated alt = 377, elevated alkphos = 350, elevated ETOH = 397, elevated lipase = 173; Patient HX: Patient is inebriated, he is feeling no pain at the moment; Additional info: Abd pain TECHNIQUE: Imaging protocol: Real time ultrasound of the abdomen with image documentation. Limited exam focused on the right upper quadrant. COMPARISON: CT abdomen pelvis w con* [id number] 10/29/2023 7:23 PM FINDINGS: Liver: Hyperechoic hepatic parenchyma likely representing steatosis.. Gallbladder: Normal. No gallstones. There is no gallbladder wall thickening. Biliary ducts: Normal. No stones. No dilation. Pancreas: Visualized pancreas is unremarkable. Right kidney: Normal. No mass. No hydronephrosis. US/US gall bladder [id number] IMPRESSION: 1. Hepatic steatosis. 2. No gallstones.
[2023-10-29 20:13] LABS: Lipase 173 U/L (13-60)
--- NOTE | 2023-10-29 21:32 | P.HP_ITS ---
Providers/Chief Complaint 2 Admitting Physician: Darrius Bear MD Primary Care Provider: Murray Camacho III, DO Chief Complaint: 11 not eaten, very little water, Alcohol withdr. History of Present Illness Trevor Martin is a 47 year old male with history of alcohol abuse, active smoker, lives with his family, presented with suicidal ideation abdominal pain. Patient has been having recurrent nausea vomiting, he is endorsing to binge drinking, stating that he drinks Micron[place] honey 4-5 shots daily, he started getting withdrawal symptoms after 24 hours hour of abstinence from alcohol last Saturday he started drinking again patient is also endorsing suicidal thoughts. Patient has been put on 96-hour hold Hospitalist requested admit for pancreatitis and vomiting. Review of Systems 2 Const: Denies: fever(s) Eyes: Denies: change in vision ENMT: Denies: throat pain Card: Denies: chest pain Resp: Denies: dyspnea GI: Reports: nausea and vomiting Medications/Allergies Home Medications Medication Instructions Recorded Confirmed Last Taken Type clonazepam 1 mg tablet (Klonopin) 1 mg PO Q8H PRN anxiety #7 tabs 09/11/23 Unknown Rx trazodone 150 mg tablet 150 mg PO BEDTIME 09/11/23 09/11/23 09/10/23 History venlafaxine 225 mg tablet,extended 225 mg PO QAM 09/11/23 09/11/23 09/11/23 History release 24 hr Allergies Allergy/AdvReac Type Severity Reaction Status Date / Time atomoxetine [From Strattera] Allergy ADR-Shakine Verified 10/29/23 16:35 ss escitalopram [From Lexapro] Allergy Unknown Verified 10/29/23 16:35 PFSH Acute 2 PFSH: Medical History (Updated 10/29/23 @ 21:33 by Darrius Bear MD) No significant past medical history Surgical History No significant past surgical history Vitals/I&O/Wt Last Vital Signs Temp 97.6 F 10/29/23 16:30 Pulse 103 H 10/29/23 19:52 Resp 18 10/29/23 19:52 BP 143/109 10/29/23 19:52 Pulse Ox 90 10/29/23 19:52 O2 Del Method Room Air 10/29/23 16:30 Weight last 48 hrs Weight 113.398 kg Physical Exam 2 Narrative: Awake and alert GCS 15 Mild signs of withdrawal Hypertensive tachycardic Multiple skin tattoos Testing in her bed Awake and alert Nonfocal neuroexam S1, S2 Dehydrated Data 10/29/23 17:24 10/29/23 17:24 A&P Assessment and plan (1) Suicidal ideation: (2) Alcohol intoxication: (3) Vomiting: (4) Elevated liver enzymes: (5) Pancreatitis: Plan Start CIWA protocol Keep him on clear liquid diet Use opioids for abdominal pain Start LR D5 Use thiamine IV Monitor for signs of alcohol withdrawal Pancreatitis related to alcohol abuse No signs of sepsis or necrotic pancreas 96-hour hold Clear liquid diet DVT prophylaxis on board Full code Attestations 2 Medical Necessity Statement*: More than 2 midnights anticipated Diagnoses Suicidal ideation R45.851 Alcohol intoxication F10.929 Vomiting R11.10 Elevated liver enzymes R74.8 Pancreatitis K85.90
[2023-10-29 23:09] LABS: Hepatitis A Antibody IgM Non-Reactive (Nonreactive); Hepatitis B Core AB, Total Non-Reactive (Nonreactive); Hepatitis B Surface AB 622.5 (11.5-1000); Hepatitis B Surface Antigen Non-Reactive (Nonreactive); Hepatitis C Virus Antibody Non-Reactive (Nonreactive)
[2023-10-29] MEDS: pantoprazole 40 mg SDV IVP ×2 (23:17)
[2023-10-29] MEDS: ondansetron 2 mg/ML SDV 2 mL 4 MG IVP (23:18)
[2023-10-29] MEDS: dextrose 5%-lactated ringers 1,000 ML 100 ML IV (23:18)
[2023-10-29] MEDS: metoprolol tartrate 25 mg Tablet PO (23:18)
[2023-10-29] MEDS: LORazepam 2 mg Tablet PO (23:55)
[2023-10-30] VITALS (17 sets, daily range): BP systolic 127–185; BP diastolic 75–129; PULSE 60–100; RESP 16–32; TEMP 36.4–36.7; O2SAT 93–98
[2023-10-30 00:31] LABS: Amphetamines Screen Urine Negative (Negative); Barbiturates Screen Urine Negative (Negative); Benzodiazepines Screen Urine Positive (Negative); Cocaine Screen Urine Negative (Negative); Opiate Screen Urine Negative (Negative); PCP Screen Urine Negative (Negative); THC Screen Urine Negative (Negative)
[2023-10-30] MEDS: LORazepam 2 mg/mL INJ 1 mL IVP ×8 (01:59→23:50)
[2023-10-30 02:15] LABS: Urine Color Orange (Yellow)
[2023-10-30 02:16] LABS: Add Urine Microscopic? YES
[2023-10-30 02:17] LABS: Add Urine Culture? No; Mucus Urine TRACE /hpf
[2023-10-30 02:18] LABS: Urine Appearance Clear (CLEAR)
[2023-10-30] MEDS: metoclopramide 5 mg/mL SDV 2 mL IVP (02:36)
[2023-10-30 05:39] LABS: Basophils % 0.8 %; Eosinophils % 0.5 %; Hematocrit 35.1 % (37-53); Lymphocytes # 1.1 10^3/uL (0.8-4.8); Lymphocytes % 30.3 %; Mean Corpuscular HGB Conc 35.9 g/dL (30-55); Mean Corpuscular Volume 89.1 fl (82-101); Monocytes # 0.5 10^3/uL (0.2-0.9); Monocytes % 13.1 %; Neutrophils # 2.01 10^3/uL (1.8-7.7); Nucleated Red Blood Cells % 0 %; Platelet Count 108 10^3/cmm (157-399); Red Blood Count 3.94 10^6/uL (3.85-5.65); Red Cell Distribution Width 12.9 % (12.1-15.1); White Blood Count 3.66 10^3/uL (3.29-11.43)
[2023-10-30 06:00] LABS: Alanine Aminotransferase 305 U/L (0-41); Albumin Level 2.9 g/dL (3.5-5.2); Alkaline Phosphatase 309 U/L (40-130); Anion Gap 13.7 (5-19); Aspartate Amino Transferase 443 U/L (0-40); Blood Urea Nitrogen 12 mg/dL (6-20); Calcium 7.4 mg/dL (8.5-10.5); Carbon Dioxide 27 mmol/L (22-29); Chloride 97 mmol/L (98-107); Creatinine Clr Calc Pharmacy 130.8321; Globulin 2.6 g/dL (1.3-4.6); Glomerular Filtration Rate 90.4 mL/min (90-130); Glucose 115 mg/dL (65-115); Magnesium 1.9 mg/dL (1.7-2.3); Osmolality Calculated 279 mOsm/kg (285-295); Phosphorus 3.3 mg/dL (2.5-4.5); Potassium 3.7 mmol/L (3.5-5.1); Sodium 134 mmol/L (136-145); Total Bilirubin 2.9 mg/dL (0.15-1.2); Total Protein 5.5 g/dL (6.6-8.7)
[2023-10-30 06:02] LABS: Estmated Average Glucose 108; Hemoglobin A1C 5.4 % (4.0-6.0)
[2023-10-30 06:15] LABS: Vitamin B12 1749 pg/mL (232-1245)
[2023-10-30] MEDS: multivitamin therapeutic Tablet 1 TAB PO (08:44)
[2023-10-30] MEDS: dextrose 5%-lactated ringers 1,000 ML 100 ML IV ×2 (08:44→18:05)
[2023-10-30] MEDS: folic acid 1 mg Tablet PO (08:44)
[2023-10-30] MEDS: thiamine 100 mg Tablet PO (08:44)
[2023-10-30] MEDS: pantoprazole 40 mg SDV IVP ×2 (08:45→18:05)
[2023-10-30] MEDS: enoxaparin 40 mg/0.4 mL Syringe SUBCUT (08:45)
[2023-10-30] MEDS: metoprolol tartrate 25 mg Tablet PO ×2 (08:45→20:10)
--- NOTE | 2023-10-30 09:21 | PC.PHAR ---
[facility] AT [facility]
--- NOTE | 2023-10-30 10:34 | PC.NURSE ---
Dr. Sweeney would like to go ahead with transfer to ICU. Pt going to ICU 10. Report called to Ishan in the ICU at this time.
--- NOTE | 2023-10-30 10:47 | PC.NURSE ---
Pt transferred to ICU 10 with security at bedside. All belongings taken to the ICU with the pt.
--- NOTE | 2023-10-30 10:59 | PC.NURSE ---
arrived from [place], cooperative at this time
[2023-10-30] MEDS: CLONazepam 0.5 mg Tablet 1 MG PO (12:56)
--- NOTE | 2023-10-30 13:41 | P.PN_ITS ---
Subjective 2 Subjective: H&P labs appreciated. Admitted overnight for alcohol intoxication and suicidal ideation. The morning examination patient seems anxious. Complaining of dizziness, seems to be slightly confused. Sitter at bedside. Vitals/I&O/Wt Last Vital Signs Temp 97.5 F L 10/30/23 09:25 Pulse 75 10/30/23 09:25 Resp 16 10/30/23 09:25 BP 141/75 10/30/23 09:25 Pulse Ox 93 10/30/23 09:25 O2 Del Method Room Air 10/30/23 08:36 10/29/23 10/30/23 10/30/23 22:59 06:59 14:59 Intake Total 1240 / 1240 1063.333 / 1063.333 Balance 1240 / 1240 1063.333 / 1063.333 Weight last 48 hrs Weight 101.151 kg Weight 101.287 kg Weight 113.398 kg Physical Exam 2 Narrative: General: No acute distress, AO x 1-2, confused, drowsy HEENT: PERRLA, pupils bilaterally equal and reactive Chest: Normal vesicular breath sounds, no added sounds, equal good air entry bilaterally CVS: S1-S2 regular, no murmurs, no tachycardia, no gallops, no rubs Abdomen: Soft, nontender, no organomegaly, bowel sounds present Neuro: No focal deficits, no facial deformity, moving all limbs Urinary Catheter Management: Hurd: Cath Placed During This Visit: yes Urinary Catheter Date of Insertion: 10/30/23 Urinary Catheter Time of Insertion: 00:01 Data 10/30/23 05:25 10/30/23 05:25 A&P Assessment and plan (1) Suicidal ideation: Sitter at bedside. Psychiatry consulted. Plan to transfer to Neuropsych Unit once medically cleared. (2) Alcohol intoxication: CIWA protocol. Continue with IV fluids at 100 cc/h. Thiamine and folic acid. Aspiration, seizure precautions. (3) Vomiting: Continue with clear liquid diet. IV Protonix twice daily. Zofran as needed. (4) Elevated liver enzymes: In setting of alcohol abuse. Hepatitis panel negative. Check HIV. (5) Pancreatitis: Clear liquid diet. Plan Restart home dose of Klonopin 1 mg p.o. every 8 hours as needed, trazodone 150 mg nightly along with venlafaxine to 25 mg every morning. Full code Clear liquid diet Protonix for PUD prophylaxis Lovenox for DVT prophylaxis. Attestations 2 Medical Necessity Statement*: Requires further hospitalization for management of alcohol intoxication, suicidal ideation Diagnoses Suicidal ideation R45.851 Alcohol intoxication F10.929 Vomiting R11.10 Elevated liver enzymes R74.8 Pancreatitis K85.90
[2023-10-30 14:25] LABS: Iron 158 ug/dL (59-158); Thyroid Stimulating Hormone 1.58 uIU/mL (0.27-4.20)
[2023-10-30 15:18] LABS: Total Iron Binding Capacity 174.99999 mcg/dl; Unsaturated Iron Binding < 17 ug/dL (112-347)
--- NOTE | 2023-10-30 16:29 | P.NPUHP_ITS ---
Providers/Chief Complaint 2 Admitting Physician: Darrius Bear MD Primary Care Provider: Murray Camacho III, DO Chief Complaint: 11 not eaten, very little water, Alcohol withdr. HPI NPU History of Present Illness Trevor Martin is a 47 year old male who presented to the emergency department with the following report: Chief Complaint: Psychiatric Symptoms Stated Complaint: 11 not eaten, very little water, Alcohol withdr. Time Seen by Provider: 10/29/23 16:36 Source: patient and family Mode of arrival: ambulatory Limitations: no limitations History of Present Illness: 47-year-old male is here with his mother with suicidal ideations. Patient states that he does no longer wants to live and he has not been eating over the last 2 weeks and has been drinking alcohol heavily stating that he just wants to . He has also been having vomiting he states over the last 2 days. He denies any abdominal pain denies any fevers. Associated symptoms: Reports depression and suicidal ideation. He is admitted to the ICU for definitive treatment based on his presentation a psychiatric consult was requested for his mental health and addiction challenges. Patient was somnolent and needing to be awoken multiple times during the interview and at times was confused about questions. He is unknown to the [facility] inpatient or outpatient psychiatric services and he presents today reporting: Chief complaint The patient was brought to the hospital due to severe depression and heavy alcohol consumption. He has been feeling extremely sad and tired. He also mentioned that he has been dealing with significant personal and legal issues, which have exacerbated his depression and drinking. History of the present complaint The patient, born on 1975, reported a history of an allergic reaction to Strattera, a medication he had taken a month prior to the current visit. The patient also mentioned that he is currently taking Effexor and Benadryl, and occasionally uses Klonopin when needed. The patient was brought to the hospital due to severe sadness, which he identified as depression. He reported feeling extremely tired and either being heavily intoxicated or in withdrawal. He acknowledged that these issues have been a struggle in his life. The patient has a history of psychiatric hospitalization and has been under the care of outpatient mental health providers. He has not been on many different antidepressants, but has adjusted the dosage of his current medication based on his feelings of wellness. The patient admitted to smoking cigarettes and consuming alcohol daily, with a consumption of at least five shots per day. This heavy drinking has been ongoing for a couple of months, but alcohol has been a problem for much of his life. The longest period of sobriety he reported was 7 and a half years, which occurred in the when he joined the . He denied using cannabis due to not having a card for it and also denied using other drugs such as cocaine, methamphetamines, and opiates. He has been to rehab twice and had a DUI 20 years ago. The patient reported that his depression and drinking worsened due to recent life events. 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 This has resulted in strained relationships, increased depression, and increased alcohol consumption. The patient expressed a desire for a stronger sleep aid than what he is currently receiving, as he feels the current one is not effective enough. He is awaiting a physical health assessment from Dr. Ayon to determine if he is healthy enough to be admitted to the psychiatric unit. Mental health history The patient has a history of psychiatric hospitalizations, including at [facility]. He has been on psychiatric medication, including Effexor and Klonopin, which he uses as needed. He has also been on Strattera, but had an allergic reaction to it. He has been under the care of an outpatient provider for his mental health, including a counselor and a psychiatrist. He has not been on many different antidepressants. Social history The patient has a history of heavy alcohol use, consuming at least five shots daily for the past couple of months. He has had a problem with alcohol for much of his life, with the longest period of sobriety being 7 1/2 years. He also smokes cigarettes. He has been to rehab twice and had a DUI 20 years ago. 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 He is currently dealing with legal charges. Meds NPU Home Medications Medication Instructions Recorded Confirmed Last Taken Type clonazepam 1 mg tablet (Klonopin) 1 mg PO Q8H PRN anxiety #7 tabs 09/11/23 10/30/23 Unknown Rx trazodone 150 mg tablet 150 mg PO BEDTIME 09/11/23 10/30/23 10/29/23 History venlafaxine 225 mg tablet,extended 225 mg PO QAM 09/11/23 10/30/23 10/29/23 History release 24 hr Allergies Allergy/AdvReac Type Severity Reaction Status Date / Time atomoxetine [From Strattera] Allergy ADR-Shakine Verified 10/29/23 16:35 ss escitalopram [From Lexapro] Allergy Unknown Verified 10/29/23 16:35 PFSH NPU 2 PFSH: Medical History No significant past medical history Surgical History No significant past surgical history Mental Status Exam 2 MSE Comments: This is a well-nourished well-developed white male in hospital scrubs with poor grooming and limited eye contact. Multiple tattoos on exposed skin including neck area. No abnormal movements except for psychomotor retardation and significant tremulousness. Cooperative with exam in mild to moderate distress. Speech was slightly decreased rate and volume. Mood described as depressed and paranoid, affect subdued and odd. Thought process linear to organized. Thought content: Patient denied suicidal or homicidal ideation. The patient presents with severe depression and heavy alcohol use. He is extremely sad and tired. He is also dealing with significant personal and legal issues, which have exacerbated his depression and drinking. Attention and concentration appear limited and memory appears somewhat reliable but none were formally tested. He is alert and oriented x 3. Insight and judgment are limited and impulse control is impaired. Vitals/I&O/Wt Last Vital Signs Temp 97.5 F L 10/30/23 09:25 Pulse 60 10/30/23 14:00 Resp 18 10/30/23 14:00 BP 127/82 10/30/23 14:00 Pulse Ox 98 10/30/23 14:00 O2 Del Method Room Air 10/30/23 08:36 10/30/23 10/30/23 10/30/23 06:59 14:59 22:59 Intake Total 1240 / 1240 1063.333 / 1063.333 Output Total 200 / 200 Balance 1240 / 1240 1063.333 / 1063.333 -200 / 863.333 Weight last 48 hrs Weight 101.151 kg Weight 101.287 kg Weight 113.398 kg Physical Exam 2 Urinary Catheter Management: Hurd: Cath Placed During This Visit: yes Urinary Catheter Date of Insertion: 10/30/23 Urinary Catheter Time of Insertion: 00:01 Data NPU 10/30/23 05:25 10/30/23 05:25 A&P Assessment and plan (1) Alcohol intoxication: (2) Suicidal ideation: Plan This is a 47-year-old white male with a long history of alcohol use/addiction and depression and anxiety dealing with severe depression and heavy alcohol use. His condition has been exacerbated by significant personal and legal issues. He is currently in a very challenging time and is in need of help. 1. Continue current medication. 2. Except would discontinue Klonopin and lieu of CIWA protocol for any benzodiazepines or alcohol withdrawal symptoms 3. Continue current observation level. 4.? Transferred to the neuropsychiatric unit when medically cleared to do so. 5.? Will attempt to gather collateral information. Attestations NPU 2 Medical Necessity Statement*: N/A. Please see primary team note for medical necessity. However plan for transfer to neuropsychiatric unit once medically cleared. Coding Level of Care Code Acute Code for Chg Fwd Diagnoses Alcohol intoxication F10.929 Suicidal ideation R45.851
[2023-10-30] MEDS: trazodone 150 mg Tablet PO (20:10)
[2023-10-30] MEDS: ondansetron 2 mg/ML SDV 2 mL 4 MG IVP (21:19)
--- NOTE | 2023-10-30 21:35 | PC.NURSE ---
1958 -- CIWA score 19 at present time. ativan given per protocol. Respirations even and unlabored, no seizure ativity noted. 2120 --CIWA remains 19, patient nauseated. Zofran given as ordered and ativan given per protocol.
--- NOTE | 2023-10-30 22:51 | PC.NURSE ---
Addendum from 10/30/2023 This nurse was providing care to this pt while on the med/surg floor. At 0159 this nurse administered 2 mg of Ativan IVP per CIWA protocol as ordered. The pt scored 26 per eval. At 0306 the pt scored 41 per CIWA scale and was given 2 mg Ativan IVP per protocol. At this time the charge aide nurse notified the force variation equipment tender hospitalist, Dr. Bear, as an update. To which he replied with was a suggestion of transfer at shift change to ICU. Charge nurse 0310-We just redid his CIWA assessment and he scored a 41, we're dosing him with ativan now. He's quite inappropriate and keeps trying to get out of bed in addition to visual hallucinations Physician 0349-I might send him to icu around shift change This nurse (Time when read) 0425-I don't feel as though the pt Trevor Martin requires a tx to ICU. After the second dose of Ativan he has calmed down significantly. He has been soundly asleep for over an hour and his 0400 CIWA assessment, he scored a 2. Physician 0425- K (response) This nurse 0432-Can you cancel the tx please? This nurse 0432-I apologize for the implication for the need to tx. This nurse (When read physician, not send time) 0509-I am unable to cancel the order, it has to be a physician. At shift change this nurse informed the dayshift nurse that took over care that the order had not been canceled.
[2023-10-31] VITALS (24 sets, daily range): BP systolic 83–160; BP diastolic 53–108; PULSE 63–92; RESP 16–29; TEMP 36.4–38.8; O2SAT 92–97
--- NOTE | 2023-10-31 00:28 | PC.NURSE ---
Notified Dr. Bear that patients withdrawl symptoms are not improving with repeated doses of Ativan 2g every hour. Order given to start precedex drip.
[2023-10-31] MEDS: CLONazepam 1 mg Tablet PO (00:38)
[2023-10-31] MEDS: dexmedeTOMIDine 0.9 % NaCL 400 MCG/100 ML PREMIX IV (00:39)
[2023-10-31] MEDS: LORazepam 2 mg/mL INJ 1 mL IVP ×6 (00:51→18:35)
[2023-10-31] MEDS: dextrose 5%-lactated ringers 1,000 ML 100 ML IV (04:43)
[2023-10-31] MEDS: acetaminophen 500 mg Tablet PO (04:47)
[2023-10-31] MEDS: venlafaxine ER (24HR) 75 mg Capsule 225 MG PO (05:17)
[2023-10-31 05:38] LABS: Basophils % 0.6 %; Eosinophils # 0.1 10^3/uL (0.0-0.8); Eosinophils % 2.6 %; Hematocrit 32.8 % (37-53); Lymphocytes # 0.9 10^3/uL (0.8-4.8); Mean Corpuscular HGB Conc 36.6 g/dL (30-55); Mean Corpuscular Hemoglobin 32.5 pg (27-33); Mean Corpuscular Volume 88.9 fl (82-101); Mean Platelet Volume 11.1 fL (7.4-10.4); Monocytes # 0.4 10^3/uL (0.2-0.9); Monocytes % 9.4 %; Neutrophils % 68.2 %; Nucleated Red Blood Cells % 0 %; Platelet Count 90 10^3/cmm (157-399); Red Blood Count 3.69 10^6/uL (3.85-5.65); Red Cell Distribution Width 12.8 % (12.1-15.1); White Blood Count 4.69 10^3/uL (3.29-11.43)
[2023-10-31 06:11] LABS: Alanine Aminotransferase 247 U/L (0-41); Albumin Level 2.8 g/dL (3.5-5.2); Alkaline Phosphatase 307 U/L (40-130); Anion Gap 15.6 (5-19); Aspartate Amino Transferase 359 U/L (0-40); Blood Urea Nitrogen 9 mg/dL (6-20); Calcium 7.7 mg/dL (8.5-10.5); Carbon Dioxide 27 mmol/L (22-29); Chloride 94 mmol/L (98-107); Chol HDL Ratio 17.33 mg/dL (1.0-5.00); Cholesterol 156 mg/dL (0-200); Globulin 2.5 g/dL (1.3-4.6); Glomerular Filtration Rate 80.1 mL/min (90-130); Glucose 95 mg/dL (65-115); HDL Cholesterol 9 mg/dL (60-100); Magnesium 1.5 mg/dL (1.7-2.3); Osmolality Calculated 274 mOsm/kg (285-295); Potassium 3.6 mmol/L (3.5-5.1); Sodium 133 mmol/L (136-145); Total Bilirubin 3.8 mg/dL (0.15-1.2); Total Protein 5.3 g/dL (6.6-8.7)
[2023-10-31 06:14] LABS: Folate Level 4.8 ng/mL (4.5-32.2)
[2023-10-31 06:23] LABS: Triglycerides 1245 mg/dL (0-150); VLDL Cholestrol Calculation 249 mg/dL (0-30)
[2023-10-31 06:35] LABS: LDL Cholesterol Direct 9 mg/dL (0-100)
[2023-10-31] MEDS: dexmedeTOMIDine 0.9 % NaCL 400 MCG/100 ML PREMIX 17.7 MCG IV ×2 (06:50→19:55)
[2023-10-31] MEDS: dextrose 5%-sod chloride 0.9% 1,000 ML 75 ML IV (07:26)
[2023-10-31] MEDS: enoxaparin 40 mg/0.4 mL Syringe SUBCUT (08:18)
[2023-10-31] MEDS: multivitamin therapeutic Tablet 1 TAB PO (08:19)
[2023-10-31] MEDS: metoprolol tartrate 25 mg Tablet PO (08:19)
[2023-10-31] MEDS: folic acid 1 mg Tablet PO (08:19)
[2023-10-31] MEDS: pantoprazole 40 mg SDV IVP ×2 (08:22→17:22)
[2023-10-31] MEDS: thiamine 100 mg Tablet PO (08:24)
[2023-10-31 08:43] LABS: Glucose Point of Care 119 mg/dL (70-110)
[2023-10-31] MEDS: INSULIN REGULAR IN 0.9 % NACL 100 UNIT/100 ML BAG IV (09:24)
--- NOTE | 2023-10-31 10:13 | PC.NURSE ---
patient not keeping pulse ox or BP cuff on, intentionally urinated in bed yelled I've been telling you for 15 minutes without saying anything previously. attempted to get out of bed several times. 1:[address] Sweeney at bedside order changed per MAR
[2023-10-31] MEDS: dextrose 5% 1,000 ML 125 ML IV (10:20)
[2023-10-31 10:25] LABS: Glucose Point of Care 125 mg/dL (70-110)
--- NOTE | 2023-10-31 11:10 | P.NPUPN_ITS ---
Subjective NPU 2 Subjective: Patient presented today lying in bed and unresponsive. Given his continued hallucinations and DTs he has been put on increased medication including Precedex and was unarousable. Mental Status Exam 2 MSE Comments: This is a well-nourished well-developed white male in hospital scrubs with poor grooming and limited eye contact. Multiple tattoos on exposed skin including neck area. No abnormal movements except for psychomotor retardation and significant tremulousness. Uncooperative with exam in mild to moderate distress. Speech was absent and he was unresponsive to any questions. Vitals/I&O/Wt Last Vital Signs Temp 98.9 F 10/31/23 09:00 Pulse 64 10/31/23 10:00 Resp 20 H 10/31/23 10:00 BP 141/103 10/31/23 10:00 Pulse Ox 95 10/31/23 10:00 O2 Del Method Nasal Cannula 10/31/23 10:00 O2 Flow Rate 4 10/31/23 10:00 Weight last 48 hrs Weight 102.376 kg Weight 104.099 kg Physical Exam 2 Urinary Catheter Management: Hurd: Cath Placed During This Visit: yes Urinary Catheter Date of Insertion: 10/30/23 Urinary Catheter Time of Insertion: 00:01 Data NPU 11/01/23 05:49 11/01/23 05:49 Micro: Microbiology 10/31/23 19:49 Blood Culture - Preliminary Blood SPECIMEN COLLECTED 10/31/23 19:03 Blood Culture - Preliminary Blood SPECIMEN COLLECTED Microbiology 10/31/23 19:49 Blood Blood Culture - Preliminary SPECIMEN COLLECTED 10/31/23 19:03 Blood Blood Culture - Preliminary SPECIMEN COLLECTED A&P Assessment and plan (1) Alcohol intoxication: (2) Suicidal ideation: Plan This is a 47-year-old white male with a long history of alcohol use/addiction and depression and anxiety dealing with severe depression and heavy alcohol use. His condition has been exacerbated by significant personal and legal issues. He is currently in a very challenging time and is in need of help. 1. Continue current medication. 2. Except would discontinue Klonopin and lieu of CIWA protocol for any benzodiazepines or alcohol withdrawal symptoms 3. Continue current observation level. 4.? Transferred to the neuropsychiatric unit when medically cleared to do so. 5.? Will attempt to gather collateral information. Attestations NPU 2 Medical Necessity Statement*: N/A. Please see primary team note for medical necessity. However plan for transfer to neuropsychiatric unit once medically cleared. Coding Level of Care Code Acute Code for Chg Fwd Diagnoses Alcohol intoxication F10.929 Suicidal ideation R45.851
[2023-10-31 13:00] LABS: Glucose Point of Care 76 mg/dL (70-110)
[2023-10-31 13:00] LABS: Glucose Point of Care 91 mg/dL (70-110)
--- NOTE | 2023-10-31 13:01 | XR_ITS ---
WS: [id number] XR chest 1V portable [id number] REASON FOR EXAM: hypoxia FINDINGS: The chest is similar to a previous examination of 11/03/2022. There is moderate tortuosity and ectasia of the thoracic aorta and mild cardiomegaly. There is calcified granulomatous disease in both hemithoraces. There is elevation of the right hemidiaphragm. No acute/subacute pulmonary parenchymal or pleural abnormality. XR/XR chest 1V portable [id number] IMPRESSION: No acute chest abnormality.
--- NOTE | 2023-10-31 13:15 | P.PN_ITS ---
Subjective 2 Subjective: Overnight patient started on Precedex drip for agitation. Today morning patient is incoherent wakes up to verbal stimulus but not following directions. Remains on room air. Vitals appreciated. Vitals/I&O/Wt Last Vital Signs Temp 98.8 F 10/31/23 04:00 Pulse 64 10/31/23 10:00 Resp 20 H 10/31/23 10:00 BP 141/103 10/31/23 10:00 Pulse Ox 95 10/31/23 10:00 O2 Del Method Room Air 10/31/23 07:43 O2 Flow Rate 4 10/31/23 06:00 10/30/23 10/31/23 10/31/23 22:59 06:59 14:59 Intake Total 1235 / 2298.333 1550.854 / 3849.187 Output Total 550 / 550 825 / 1375 Balance 685 / 1748.333 725.854 / 2474.187 Weight last 48 hrs Weight 104.099 kg Weight 101.151 kg Weight 101.287 kg Weight 113.398 kg Physical Exam 2 Narrative: General: No acute distress, AO x 1-2, confused, drowsy HEENT: PERRLA, pupils bilaterally equal and reactive Chest: Normal vesicular breath sounds, no added sounds, equal good air entry bilaterally CVS: S1-S2 regular, no murmurs, no tachycardia, no gallops, no rubs Abdomen: Soft, nontender, no organomegaly, bowel sounds present Neuro: No focal deficits, no facial deformity, moving all limbs Urinary Catheter Management: Hurd: Cath Placed During This Visit: yes Urinary Catheter Date of Insertion: 10/30/23 Urinary Catheter Time of Insertion: 00:01 Data 10/31/23 04:39 10/31/23 04:39 A&P Assessment and plan (1) Hypertriglyceridemia: Triglyceride level more than 1200. Associated with pancreatitis. Start on insulin drip. Switch fluid to D5W at 125 cc/h. Depending on the urine output will plan to increase to D5W rate while maintaining the insulin drip. Monitor BMP every 8 hour, triglyceride level every 12 hours. Target targets for level below 500. (2) Alcohol intoxication: Continue with Precedex drip. Patient takes Klonopin 1 mg p.o. every 8 hours as needed. For now start on IV Ativan 1 mg every 8 hour along with CIWA protocol Ativan. Wean Precedex drip as possible. Monitor heart rate. Thiamine and folic acid. Aspiration, seizure precautions. (3) Pancreatitis: In setting of alcohol abuse. Triglyceride levels elevated to more than 1200. Clear liquid diet. (4) Suicidal ideation: Sitter at bedside. Psychiatry consulted. Plan to transfer to Neuropsych Unit once medically cleared. (5) Elevated liver enzymes: In setting of alcohol abuse. Slight improvement. Associated with hyperbilirubinemia. Check LDH and GGT. Hepatitis panel negative. Appreciate gallbladder ultrasound for no gallstones. Check HIV. (6) Vomiting: In setting of pancreatitis. IV Protonix twice daily. Zofran as needed. Plan Restart home dose of Klonopin 1 mg p.o. every 8 hours as needed, trazodone 150 mg nightly along with venlafaxine to 25 mg every morning. Full code Clear liquid diet Protonix for PUD prophylaxis Lovenox for DVT prophylaxis. Attestations 2 Medical Necessity Statement*: Requires further hospitalization for management of hypertriglyceridemia leading to pancreatitis, alcohol intoxication in a patient admitted for suicidal ideation Critical Care Time: The high probability of a clinically significant, sudden or life threatening deterioration of the patient's [neurology, endocrine, GI, psychiatry] system(s) required my full and direct attention, intervention and personal management. The critical care time is as shown. This time is in addition to time spent performing any reported procedures but includes the following: [x] Data and vital sign review and interpretation [x] Patient assessment, examination and intervention [x] Documentation [x] Medication orders and management Critical Care Time (min): 80 Coding Level of Care Code Critical Care >/= 30 minutes Critical care time (in minutes): 80 The high probability of a clinically significant, sudden or life threatening deterioration, as referenced in this documentation, required my full and direct attention, intervention and personal management. The critical care time shown is in addition to time spent performing any reported separately billable procedures and includes the following: [x] Data and vital sign review and interpretation [x ] Patient assessment, examination and intervention [x] Medication orders and management [x] Patient/Family updates as able [x] Care Coordination and Documentation. Other Coding Information This patient has a high probability of clinically significant, sudden or life threatening deterioration of the patient's (neurological/pulmonary/cardiac/renal/ID/endocrine) systems required my full, direct attention, the highest level of physician preparedness for urgent intervention and personal management. I managed/supervised life or organ supporting interventions that required frequent physician assessment. I devoted my full attention in the ICU to the direct care of this patient for the period of time indicated above. Time I spent with family or surrogate(s) is included only if the patient was incapable of providing necessary information or participating in decision making. This time includes the following services provided: Telemetry review Hemodynamic interpretation, assessment and management Review and interpretation of CXR Review and interpretation of lab values Review and interpretation of microbiologic data and culture results Review of medications and administration including Precedex and insulin drip Review and interpretation of Nutrition requirements and management Discussion of management with other consultants and services Clinical update to family members Diagnoses Hypertriglyceridemia E78.1 Alcohol intoxication F10.929 Pancreatitis K85.90 Suicidal ideation R45.851 Elevated liver enzymes R74.8 Vomiting R11.10
[2023-10-31] MEDS: dexmedeTOMIDine 0.9 % NaCL 400 MCG/100 ML PREMIX 15.17 MCG IV (13:28)
[2023-10-31 13:33] LABS: Glucose Point of Care 81 mg/dL (70-110)
[2023-10-31 13:47] LABS: Gamma Glutamyl Transferase 1083 U/L (8-61); Lactate Dehydrogenase 302 U/L (135-225)
[2023-10-31 13:57] LABS: HIV 1 & 2 Antibody Non-Reactive (Non-Reactiv); HIV 1 & 2 Antigen Non-Reactive (Non-Reactiv)
--- NOTE | 2023-10-31 15:14 | PC.NURSE ---
glucose 61, t.o. to hold insulin gtt at this time
[2023-10-31] MEDS: dextrose 5% 1,000 ML 200 ML IV (16:45)
[2023-10-31 16:50] LABS: Glucose Point of Care 103 mg/dL (70-110)
[2023-10-31 16:51] LABS: Glucose Point of Care 61 mg/dL (70-110)
[2023-10-31 16:51] LABS: Glucose Point of Care 58 mg/dL (70-110)
[2023-10-31] MEDS: LORazepam 2 mg/mL INJ 1 mL 1 MG IVP (17:22)
[2023-10-31 18:31] LABS: Glucose Point of Care 115 mg/dL (70-110)
[2023-10-31] MEDS: acetaminophen 1,000 MG/100 ML PIGGYBACK 400 MG IV (19:04)
[2023-10-31] MEDS: PHENobarbital 130 mg/mL SDV 1 mL IVP (19:04)
--- NOTE | 2023-10-31 19:11 | PC.NURSE ---
patient very diaphoretic glucose WNL, yelling at staff not cooperating, pulling at line, temp of 101.9, orders from Dr. Woodard per SHERRY
--- NOTE | 2023-10-31 19:26 | CTR_ITS ---
PROCEDURE INFORMATION: Exam: CT Abdomen And Pelvis With Contrast Exam date and time: 11/01/2023 2:03 AM Age: 47 years old Clinical indication: Abnormal findings; Abnormal lab test; Elevated lipase; Patient HX: Lipase of 173. History of hepatic disease. ; Additional info: Pancreatitis TECHNIQUE: Imaging protocol: Computed tomography of the abdomen and pelvis with contrast. Radiation optimization: All CT scans at this facility use at least one of these dose optimization techniques: automated exposure control; mA and/or kV adjustment per patient size (includes targeted exams where dose is matched to clinical indication); or iterative reconstruction. Contrast material: OMNI 350; Contrast volume: 100 ml; Contrast route: INTRAVENOUS (IV); COMPARISON: CT abdomen pelvis w con* [id number] 10/29/2023 7:23 PM RADIATION DOSE METRICS: Total DLP (mGy-cm): 834.67 FINDINGS: Lungs: Wjaaz-uwxobah-equw-left patchy airspace infiltration small/miniscule bilateral pleural effusions. Heart: Base of heart is unremarkable as visualized. Diaphragm: Small sliding-type hiatal hernia. Liver: Diffuse hepatic steatosis. Gallbladder and biliary ducts: Gallbladder is distended demonstrates perhaps mild irregularity wall. Pancreas: Normal. No ductal dilation. Spleen: Incidental splenule is noted. Small splenic granulomas. Adrenal glands: Normal. No mass. Kidneys and ureters: Normal. No hydronephrosis. Stomach and bowel: Distal sigmoid colon rectum are distended mild circumferential thickening, perhaps mild increased local vascularity without pericolonic fat stranding. Diverticulosis without evidence of diverticulitis. Appendix: Appendix is not well visualized, no secondary evidence of appendicitis. Intraperitoneal space: Unremarkable. No free air. No significant fluid collection. Vasculature: Minimal scattered calcified atherosclerotic disease. Calcified pelvic phleboliths. Lymph nodes: Unremarkable. No enlarged lymph nodes. Urinary bladder: Circumferential bladder thickening. Punctate locule of anti dependent gas is present within bladder. Reproductive: Unremarkable as visualized. Bones/joints: Degenerative change of the visualized osseous structures. Soft tissues: Bilateral gynecomastia. CT/CT abdomen pelvis w con* [id number] IMPRESSION: 1. No definitive evidence of pancreatitis on this examination. If early in disease course, imaging findings dental lag behind laboratory findings. 2. Distended gallbladder with shaggy appearance of the wall suggestive of inflammation. Confirmation with right upper quadrant ultrasound should be performed. 3. Urinary bladder appearance suggest cystitis. Correlate clinically. 4. Mild changes of the sigmoid and rectum suggesting possible mild proctocolitis. 5. Vllee-sasrldd-tzhn-left lung base infiltrates, correlate with aspiration/infection. 6. Additional findings as above.
[2023-10-31] MEDS: LORazepam 2 mg/mL INJ 1 mL 4 MG IVP (19:31)
[2023-10-31] MEDS: piperacillin-tazobactam 3.375 GM in sodium chloride 0.9% (plus) 50 ML IV (19:39)
[2023-10-31 19:46] LABS: Glucose Point of Care 118 mg/dL (70-110)
[2023-10-31 20:00] LABS: Basophils % 0.2 %; Eosinophils % 0.5 %; Hematocrit 35.6 % (37-53); Lymphocytes # 0.3 10^3/uL (0.8-4.8); Lymphocytes % 4.8 %; Mean Corpuscular HGB Conc 35.1 g/dL (30-55); Mean Corpuscular Hemoglobin 32.3 pg (27-33); Mean Platelet Volume 11.5 fL (7.4-10.4); Monocytes # 0.3 10^3/uL (0.2-0.9); Monocytes % 4.9 %; Neutrophils # 4.87 10^3/uL (1.8-7.7); Neutrophils % 89.1 %; Nucleated Red Blood Cells % 0 %; Platelet Count 64 10^3/cmm (157-399); Red Blood Count 3.87 10^6/uL (3.85-5.65); Red Cell Distribution Width 13.1 % (12.1-15.1); White Blood Count 5.47 10^3/uL (3.29-11.43)
[2023-10-31] MEDS: dextrose 5%-lactated ringers 1,000 ML 150 ML IV (20:31)
[2023-10-31] MEDS: lidocaine 1% 5 ML in potassium chloride premix 100 ML 52.5 ML IV ×2 (20:34→22:48)
[2023-10-31 21:01] LABS: Glucose Point of Care 112 mg/dL (70-110)
--- NOTE | 2023-10-31 21:19 | PC.NURSE ---
1910 -- Dr. Sweeney called and reviewed all orders that he had given to DALIA Valenzuela and reviewed plan of care. Notified that he would like me to call him with the BMP results when they are available. 2014 -- Dr. Sweeney called and stated that he talked to lab and the 2nd sample was hemolized and he had already reviewed the labs with the produce laborer and he told them to release the results. Orders given for 40meq K iv and change IV fluids to D5LR at 150ml/h.
[2023-10-31 23:01] LABS: Glucose Point of Care 87 mg/dL (70-110)
[2023-10-31 23:02] LABS: Glucose Point of Care 134 mg/dL (70-110)
[2023-10-31 23:21] LABS: Anion Gap 15.2 (5-19); Blood Urea Nitrogen 9 mg/dL (6-20); Calcium 7.6 mg/dL (8.5-10.5); Carbon Dioxide 25 mmol/L (22-29); Chloride 95 mmol/L (98-107); Creatinine Clr Calc Pharmacy 99.3933; Glomerular Filtration Rate 64.9 mL/min (90-130); Glucose 108 mg/dL (65-115); Osmolality Calculated 273 mOsm/kg (285-295); Potassium 3.2 mmol/L (3.5-5.1); Sodium 132 mmol/L (136-145)
[2023-10-31 23:22] LABS: Triglycerides 1269 mg/dL (0-150)
[2023-10-31 23:47] LABS: LDL Cholesterol Direct 9 mg/dL (0-100)
[2023-11-01] VITALS (25 sets, daily range): BP systolic 96–157; BP diastolic 61–111; PULSE 71–121; RESP 13–22; TEMP 36.2–36.9; O2SAT 93–98
[2023-11-01 01:02] LABS: Glucose Point of Care 132 mg/dL (70-110)
[2023-11-01 01:02] LABS: Glucose Point of Care 125 mg/dL (70-110)
[2023-11-01 01:37] LABS: Blood Urea Nitrogen 10 mg/dL (6-20); Calcium 7.5 mg/dL (8.5-10.5); Carbon Dioxide 24 mmol/L (22-29); Chloride 98 mmol/L (98-107); Creatinine Clr Calc Pharmacy 108.4291; Glomerular Filtration Rate 71.8 mL/min (90-130); Glucose 125 mg/dL (65-115); Osmolality Calculated 277 mOsm/kg (285-295); Sodium 133 mmol/L (136-145)
[2023-11-01 01:40] LABS: Anion Gap 14.8 (5-19); Potassium 3.8 mmol/L (3.5-5.1)
[2023-11-01] MEDS: iohexol 350 mg/mL 500 mL Btl (per mL) IV (02:11)
[2023-11-01] MEDS: dextrose 5%-lactated ringers 1,000 ML 150 ML IV ×3 (03:00→18:03)
[2023-11-01 03:01] LABS: Glucose Point of Care 119 mg/dL (70-110)
[2023-11-01 03:01] LABS: Glucose Point of Care 109 mg/dL (70-110)
[2023-11-01] MEDS: piperacillin-tazobactam 3.375 GM in sodium chloride 0.9% (plus) 50 ML IV ×3 (03:42→19:24)
[2023-11-01 04:03] LABS: Glucose Point of Care 116 mg/dL (70-110)
[2023-11-01 05:07] LABS: Glucose Point of Care 126 mg/dL (70-110)
[2023-11-01] MEDS: PHENobarbital 130 mg/mL SDV 1 mL 60 MG IVP ×2 (05:24→18:04)
[2023-11-01] MEDS: venlafaxine ER (24HR) 75 mg Capsule 225 MG PO (05:24)
[2023-11-01 05:59] LABS: Glucose Point of Care 101 mg/dL (70-110)
[2023-11-01 06:17] LABS: Hematocrit 37.3 % (37-53); Mean Corpuscular HGB Conc 34.3 g/dL (30-55); Mean Corpuscular Volume 93.3 fl (82-101); Mean Platelet Volume 11.3 fL (7.4-10.4); Platelet Count 78 10^3/cmm (157-399); White Blood Count 12.63 10^3/uL (3.29-11.43)
[2023-11-01 06:40] LABS: Alanine Aminotransferase 226 U/L (0-41); Albumin Level 2.9 g/dL (3.5-5.2); Alkaline Phosphatase 327 U/L (40-130); Anion Gap 13.7 (5-19); Aspartate Amino Transferase 339 U/L (0-40); Blood Urea Nitrogen 8 mg/dL (6-20); Calcium 7.9 mg/dL (8.5-10.5); Carbon Dioxide 28 mmol/L (22-29); Chloride 100 mmol/L (98-107); Creatinine Clr Calc Pharmacy 98.6515; Glomerular Filtration Rate 64.9 mL/min (90-130); Glucose 108 mg/dL (65-115); Magnesium 1.7 mg/dL (1.7-2.3); Osmolality Calculated 285 mOsm/kg (285-295); Potassium 3.7 mmol/L (3.5-5.1); Sodium 138 mmol/L (136-145); Total Bilirubin 3.4 mg/dL (0.15-1.2); Total Protein 5.9 g/dL (6.6-8.7)
[2023-11-01 06:55] LABS: Triglycerides 1111 mg/dL (0-150)
[2023-11-01 07:09] LABS: Slide Review Slide Review Perform
[2023-11-01 07:12] LABS: Absolute Segmented Neutrophil 8.2 10/cmm (1.6-7.1); Band Neutrophils Absolute 3.5 10^3/cmm (0.0-1.2); Lymphocytes 6 %; Monocytes Absolute 0.1 10^3/cmm (0.1-0.6); Segmented Neutrophils 65 %; Total Cells Counted 100 (0-100)
[2023-11-01 07:13] LABS: Absolute Neutrophil 11.7 10^3/cmm (1.4-6.5); Eosinophils 0 %; Lymphocytes Absolute 0.8 10^3/cmm (1.2-3.4); Platelet Estimate Decreased (Normal)
[2023-11-01 07:19] LABS: LDL Cholesterol Direct 11 mg/dL (0-100)
[2023-11-01 07:46] LABS: Glucose Point of Care 103 mg/dL (70-110)
[2023-11-01] MEDS: enoxaparin 40 mg/0.4 mL Syringe SUBCUT (08:52)
[2023-11-01] MEDS: thiamine 100 mg Tablet PO (08:53)
[2023-11-01] MEDS: folic acid 1 mg Tablet PO (08:53)
[2023-11-01] MEDS: pantoprazole 40 mg SDV IVP ×2 (08:53→18:04)
[2023-11-01] MEDS: multivitamin therapeutic Tablet 1 TAB PO (08:53)
[2023-11-01] MEDS: ondansetron 2 mg/ML SDV 2 mL 4 MG IVP ×2 (08:58→19:23)
[2023-11-01 09:26] LABS: Glucose Point of Care 89 mg/dL (70-110)
[2023-11-01] MEDS: LORazepam 2 mg/mL INJ 1 mL 1 MG IVP (10:11)
[2023-11-01] MEDS: acetaminophen 500 mg Tablet PO (10:17)
[2023-11-01 10:23] LABS: Glucose Point of Care 103 mg/dL (70-110)
[2023-11-01 11:04] LABS: Blood Urea Nitrogen 7 mg/dL (6-20); Calcium 7.6 mg/dL (8.5-10.5); Carbon Dioxide 27 mmol/L (22-29); Chloride 99 mmol/L (98-107); Creatinine Clr Calc Pharmacy 118.3818; Glomerular Filtration Rate 80.1 mL/min (90-130); Glucose 107 mg/dL (65-115); Osmolality Calculated 276 mOsm/kg (285-295); Sodium 134 mmol/L (136-145)
[2023-11-01 11:07] LABS: Anion Gap 11.2 (5-19); Potassium 3.2 mmol/L (3.5-5.1)
[2023-11-01 11:24] LABS: Glucose Point of Care 137 mg/dL (70-110)
[2023-11-01] MEDS: HYDROcodone-acetaminophen 5-325 mg Tablet 1 TAB PO ×2 (11:34→18:03)
[2023-11-01 12:38] LABS: Glucose Point of Care 119 mg/dL (70-110)
[2023-11-01 13:11] LABS: Glucose Point of Care 100 mg/dL (70-110)
--- NOTE | 2023-11-01 14:01 | P.PN_ITS ---
Subjective 2 Subjective: Yesterday evening patient developed delirium tremens for which she required phenobarbital. Today morning patient is more awake and alert hip pain. Denies any nausea, vomiting. Complaining of mild abdominal pain. On 2 to 3 L of oxygen supplementation. Tmax last 24 hours 101.9 Fahrenheit. Vitals/I&O/Wt Last Vital Signs Temp 97.2 F L 11/01/23 04:00 Pulse 99 11/01/23 13:00 Resp 22 H 11/01/23 11:00 BP 137/89 11/01/23 13:00 Pulse Ox 96 11/01/23 13:00 O2 Del Method Nasal Cannula 11/01/23 08:07 O2 Flow Rate 3 11/01/23 08:07 10/31/23 11/01/23 11/01/23 22:59 06:59 14:59 Intake Total 2704.209 / 4161.208 1122.5 / 5283.708 1400 / 1400 Balance 2704.209 / 4161.208 1122.5 / 5283.708 1400 / 1400 Weight last 48 hrs Weight 102.376 kg Weight 104.099 kg Physical Exam 2 Narrative: General: No acute distress, AO x 2-3, drowsy HEENT: PERRLA, pupils bilaterally equal and reactive Chest: Normal vesicular breath sounds, no added sounds, equal good air entry bilaterally CVS: S1-S2 regular, no murmurs, no tachycardia, no gallops, no rubs Abdomen: Soft, nontender, no organomegaly, bowel sounds present Neuro: No focal deficits, no facial deformity, moving all limbs Urinary Catheter Management: Hurd: Cath Placed During This Visit: yes Urinary Catheter Date of Insertion: 10/30/23 Urinary Catheter Time of Insertion: 00:01 Data 11/01/23 05:49 11/01/23 10:40 Micro: Microbiology 10/31/23 19:49 Blood Culture - Preliminary Blood Staphylococcus species 10/31/23 19:03 Blood Culture - Preliminary Blood SPECIMEN COLLECTED A&P Assessment and plan (1) Hypertriglyceridemia: Appreciate CT abdomen pelvis. Low concern for pancreatitis for now. Triglyceride level remains elevated. Continue with insulin drip. Increase rate as per blood sugars. Continue with D5 LR at 125 cc/h. Monitor BMP every 8 hour, triglyceride level every 12 hours. Target targets for level below 500. (2) Alcohol intoxication: With concerns for delirium tremens. Improving. Continue with phenobarbital for now. Continue to wean as per protocol. For now 130 mg in 2 divided doses for next 48 hours and then will wean accordingly. Precedex if needed. Patient takes Klonopin 1 mg p.o. every 8 hours as needed. Continue. Thiamine and folic acid. Aspiration, seizure precautions. (3) Pancreatitis: In setting of alcohol abuse. Triglyceride levels elevated to more than 1200. Clear liquid diet. (4) Suicidal ideation: Sitter at bedside. Psychiatry consulted. Plan to transfer to Neuropsych Unit once medically cleared. Currently on 96-hour hold. (5) Elevated liver enzymes: In setting of alcohol abuse. Slight improvement. Associated with hyperbilirubinemia. Appreciate LDH and GGT. Hepatitis panel negative. Appreciate gallbladder ultrasound for no gallstones. Given concerns for possible inflammation cannot rule out infection. Though clinically less likely. Check HIDA scan. (6) Vomiting: In setting of pancreatitis. IV Protonix twice daily. Zofran as needed. (7) Delirium tremens: (8) Bacteremia due to Staphylococcus: 2 out of 4 blood cultures positive from 10/30. Add vancomycin. Continue Zosyn. Check MRSA swab. Repeat blood cultures in AM. Will await speciation and identification. If concerns for Staphylococcus aureus will plan for echocardiogram and imaging of the back to rule out infective endocarditis/discitis. (9) Thrombocytopenia: Plan Restart home dose of Klonopin 1 mg p.o. every 8 hours as needed, trazodone 150 mg nightly along with venlafaxine to 25 mg every morning. Full code Clear liquid diet Protonix for PUD prophylaxis Lovenox for DVT prophylaxis. Attestations 2 Medical Necessity Statement*: Requires further hospitalization for management of delirium tremens, triglyceridemia leading to pancreatitis, Staphylococcus bacteremia in a patient with history of alcohol abuse admitted for suicidal ideation Diagnoses Hypertriglyceridemia E78.1 Alcohol intoxication F10.929 Pancreatitis K85.90 Suicidal ideation R45.851 Elevated liver enzymes R74.8 Vomiting R11.10 Delirium tremens F10.931 Bacteremia due to Staphylococcus R78.81; B95.8 Thrombocytopenia D69.6
[2023-11-01] MEDS: vancomycin 2,000 MG/400 ML PIGGYBACK 200 MG IV (14:10)
[2023-11-01 14:17] LABS: Glucose Point of Care 93 mg/dL (70-110)
[2023-11-01] MEDS: CLONazepam 1 mg Tablet PO (14:48)
[2023-11-01 15:26] LABS: Glucose Point of Care 123 mg/dL (70-110)
--- NOTE | 2023-11-01 16:15 | P.NPUPN_ITS ---
Subjective NPU 2 Subjective: Patient presented today continuing to be fairly out of it and only responding with trailing off answers that are somewhat on target but often demonstrate his confusion per staff reports and direct observation. We discussed that we still intend to have him come down to the neuropsychiatric unit but he needs to be medically cleared first. Mental Status Exam 2 MSE Comments: This is a well-nourished well-developed white male in hospital scrubs with poor grooming and limited eye contact. Multiple tattoos on exposed skin including neck area. No abnormal movements except for psychomotor retardation and significant tremulousness. Somewhat cooperative with exam in moderate distress. Speech was decreased rate and volume and tremulous. Mood not well-described, affect subdued and odd. Thought process mostly disorganized. Thought content: Patient did not really answer questions of lethality as he often responded and trailed off. No questions answered about delusions or perceptual disturbances but he continues to seem to be attending to internal stimuli and having hallucinations auditory and apparently visual. Attention, concentration and memory all are impaired but none were formally tested. He is somewhat alert and oriented person. Insight, judgment and impulse control are impaired. Vitals/I&O/Wt Last Vital Signs Temp 97.2 F L 11/01/23 04:00 Pulse 88 11/01/23 15:11 Resp 22 H 11/01/23 11:00 BP 137/89 11/01/23 13:00 Pulse Ox 96 11/01/23 13:00 O2 Del Method Nasal Cannula 11/01/23 08:07 O2 Flow Rate 3 11/01/23 08:07 11/01/23 11/01/23 11/01/23 06:59 14:59 22:59 Intake Total 1122.5 / 5283.708 1400 / 1400 Balance 1122.5 / 5283.708 1400 / 1400 Weight last 48 hrs Weight 102.376 kg Weight 104.099 kg Physical Exam 2 Urinary Catheter Management: Hurd: Cath Placed During This Visit: yes Urinary Catheter Date of Insertion: 10/30/23 Urinary Catheter Time of Insertion: 00:01 Data NPU 11/02/23 03:48 11/02/23 03:48 Micro: Microbiology 10/31/23 19:49 Blood Culture - Preliminary Blood Staphylococcus species 10/31/23 19:03 Blood Culture - Preliminary Blood SPECIMEN COLLECTED Microbiology 10/31/23 19:49 Blood Blood Culture - Preliminary Staphylococcus species 10/31/23 19:03 Blood Blood Culture - Preliminary SPECIMEN COLLECTED A&P Assessment and plan (1) Alcohol intoxication: (2) Suicidal ideation: Plan This is a 47-year-old white male with a long history of alcohol use/addiction and depression and anxiety dealing with severe depression and heavy alcohol use. His condition has been exacerbated by significant personal and legal issues. He is currently in a very challenging time and is in need of help. 1. Continue current medication. 2. Except would discontinue Klonopin and lieu of CIWA protocol for any benzodiazepines or alcohol withdrawal symptoms 3. Continue current observation level. 4.? Transferred to the neuropsychiatric unit when medically cleared to do so. 5.? Will attempt to gather collateral information. 6. Filed 21-day hold paperwork as he continues to not be well enough to participate in psychiatric care given his severe withdrawal he is continuing to experience. Attestations NPU 2 Medical Necessity Statement*: N/A. Please see primary team note for medical necessity. However plan for transfer to neuropsychiatric unit once medically cleared. Coding Level of Care Code Acute Code for [facility] José Manuel Diagnoses Alcohol intoxication F10.929 Suicidal ideation R45.851
[2023-11-01 16:26] LABS: Glucose Point of Care 115 mg/dL (70-110)
[2023-11-01 17:33] LABS: Glucose Point of Care 90 mg/dL (70-110)
[2023-11-01 18:13] LABS: Blood Urea Nitrogen 6 mg/dL (6-20); Calcium 7.7 mg/dL (8.5-10.5); Carbon Dioxide 24 mmol/L (22-29); Chloride 101 mmol/L (98-107); Creatinine Clr Calc Pharmacy 131.5353; Glomerular Filtration Rate 90.4 mL/min (90-130); Glucose 80 mg/dL (65-115); Osmolality Calculated 277 mOsm/kg (285-295); Sodium 135 mmol/L (136-145); Triglycerides 287 mg/dL (0-150)
[2023-11-01 18:15] LABS: Glucose Point of Care 116 mg/dL (70-110)
[2023-11-01 18:19] LABS: Anion Gap 13.7 (5-19); Potassium 3.7 mmol/L (3.5-5.1)
[2023-11-01 19:02] LABS: Glucose Point of Care 112 mg/dL (70-110)
[2023-11-01] MEDS: trazodone 150 mg Tablet PO (20:35)
[2023-11-01 20:43] LABS: Glucose Point of Care 90 mg/dL (70-110)
--- NOTE | 2023-11-01 20:57 | PC.NURSE ---
Hepatobiliary Scan [place] with [facility] contacted unit to verify the hepatobiliary scan was ordered as routine to be performed on Saturday. Dr. Bear contacted. To follow protocol and perform scan as ordered.
[2023-11-01] MEDS: vancomycin 1,750 MG/350 ML PIGGYBACK 233.33 MG IV (21:52)
[2023-11-01 22:37] LABS: Glucose Point of Care 98 mg/dL (70-110)
[2023-11-01 23:20] LABS: Glucose Point of Care 70 mg/dL (70-110)
[2023-11-02] VITALS (27 sets, daily range): BP systolic 111–151; BP diastolic 77–98; PULSE 67–130; RESP 8–21; TEMP 36.4–36.7; O2SAT 91–99; BMI 29.7
--- NOTE | 2023-11-02 | PC.NURSE ---
Insulin Stopped Patient's glucose level 70 at 2316 while patient's last triglyceride level [address] Bear contacted; order received to stop insulin drip and maintenance fluids, remain on a clear liquid diet.
[2023-11-02] MEDS: HYDROcodone-acetaminophen 5-325 mg Tablet 1 TAB PO ×4 (00:22→21:41)
[2023-11-02 01:14] LABS: Glucose Point of Care 95 mg/dL (70-110)
[2023-11-02 02:43] LABS: Glucose Point of Care 97 mg/dL (70-110)
--- NOTE | 2023-11-02 03:00 | PC.NURSE ---
Pain Patient complaining of bilateral leg pain, stating it is sciatica pain and that hydrocodone does not ease it. Dr. Bear contacted and order received for gabapentin 300 mg BID.
[2023-11-02] MEDS: gabapentin 300 mg Capsule PO ×3 (03:38→17:46)
[2023-11-02] MEDS: piperacillin-tazobactam 3.375 GM in sodium chloride 0.9% (plus) 50 ML IV ×3 (03:38→20:08)
[2023-11-02 03:52] LABS: Glucose Point of Care 102 mg/dL (70-110)
[2023-11-02 04:00] LABS: Basophils % 0.1 %; Eosinophils # 0.2 10^3/uL (0.0-0.8); Eosinophils % 1.7 %; Hematocrit 31.1 % (37-53); Lymphocytes # 0.7 10^3/uL (0.8-4.8); Lymphocytes % 7.8 %; Mean Corpuscular HGB Conc 35.4 g/dL (30-55); Mean Corpuscular Hemoglobin 32.3 pg (27-33); Mean Corpuscular Volume 91.2 fl (82-101); Mean Platelet Volume 11.8 fL (7.4-10.4); Monocytes # 0.5 10^3/uL (0.2-0.9); Monocytes % 5.3 %; Neutrophils # 7.37 10^3/uL (1.8-7.7); Neutrophils % 84.8 %; Nucleated Red Blood Cells % 0 %; Platelet Count 69 10^3/cmm (157-399); Red Blood Count 3.41 10^6/uL (3.85-5.65); Red Cell Distribution Width 13.2 % (12.1-15.1)
[2023-11-02 04:19] LABS: Magnesium 1.5 mg/dL (1.7-2.3); Triglycerides 199 mg/dL (0-150)
[2023-11-02 04:23] LABS: Alanine Aminotransferase 170 U/L (0-41); Albumin Level 2.6 g/dL (3.5-5.2); Alkaline Phosphatase 253 U/L (40-130); Anion Gap 11.7 (5-19); Aspartate Amino Transferase 212 U/L (0-40); Blood Urea Nitrogen 4 mg/dL (6-20); Calcium 7.8 mg/dL (8.5-10.5); Carbon Dioxide 26 mmol/L (22-29); Chloride 100 mmol/L (98-107); Creatinine Clr Calc Pharmacy 118.3818; Globulin 2.3 g/dL (1.3-4.6); Glomerular Filtration Rate 80.1 mL/min (90-130); Glucose 107 mg/dL (65-115); Osmolality Calculated 277 mOsm/kg (285-295); Sodium 135 mmol/L (136-145); Total Protein 4.9 g/dL (6.6-8.7)
[2023-11-02 04:26] LABS: Potassium 2.7 mmol/L (3.5-5.1)
--- NOTE | 2023-11-02 05:00 | PC.NURSE ---
Potassium Patient's potassium level 2.7. Dr. Bear notified; order received for 40 meq kcl IV once.
[2023-11-02 05:21] LABS: Glucose Point of Care 121 mg/dL (70-110)
[2023-11-02] MEDS: venlafaxine ER (24HR) 75 mg Capsule 225 MG PO (05:42)
[2023-11-02] MEDS: lidocaine 1% 5 ML in potassium chloride premix 100 ML 26.25 ML IV (05:42)
[2023-11-02] MEDS: PHENobarbital 130 mg/mL SDV 1 mL 60 MG IVP ×2 (05:42→17:47)
[2023-11-02 06:33] LABS: Glucose Point of Care 93 mg/dL (70-110)
[2023-11-02 07:18] LABS: Glucose Point of Care 101 mg/dL (70-110)
[2023-11-02] MEDS: enoxaparin 40 mg/0.4 mL Syringe SUBCUT (09:00)
[2023-11-02] MEDS: ipratropium-albuterol 3 mL Neb INHALATION (09:00)
[2023-11-02] MEDS: pantoprazole 40 mg SDV IVP ×2 (09:01→17:46)
[2023-11-02] MEDS: multivitamin therapeutic Tablet 1 TAB PO (09:01)
[2023-11-02] MEDS: thiamine 100 mg Tablet PO (09:01)
[2023-11-02] MEDS: folic acid 1 mg Tablet PO (09:01)
--- NOTE | 2023-11-02 10:33 | USCV_ITS ---
Trevor Martin Age: 47 Gender: M : 1975 Exam Date: 11/02/2023 11:35 Ordering Phys: Price Sweeney MD Technologist: Edward Christian [place] [facility] [place]: possible IE BP: 121 / 81 HR: 96 Rhythm: Sinus Technical Quality: Adequate MEASUREMENTS (Male / Female) Normal Values 2D ECHO LVOT Diameter 2.6 cm LV Ejection Fraction MOD 4C 74.2 % LV Ejection Fraction MOD 2C 65.5 % LV Ejection Fraction 2C AL 65.1 % LA Diameter 4.0 cm RA Systolic Volume 4C AL 35.5 ml RA Systolic Volume 4C MOD 35.2 ml LA Sys Volume AL 56.6 cm cubed LA Sys Volume Index AL 23.5 cm cubed/m squared Aorta at Sinotubular Diameter 2.7 cm IVC Diameter 1.7 cm M-MODE LA Ao Ratio MM 1.1 AV Cusp Separation MM 2.3 cm DOPPLER AV Peak Velocity 128.0 cm/s LVOT Peak Velocity 115.0 cm/s AV Area Cont Eq vti 4.7 cm squared AV Area Cont Eq pk 4.8 cm squared MV Peak Velocity 113.0 cm/s MV Area PHT 5.2 cm squared Mitral E to A Ratio 0.9 PV Peak Velocity 132.7 cm/s RV Ejection Time 0.2 s FINDINGS Left Ventricle Normal left ventricular size, systolic function and wall thickness, with no regional wall motion abnormalities. Left ventricular ejection fraction is normal estimated at 65%. Right Ventricle Normal right ventricular size and systolic function. Right Atrium Normal right atrial size. Left Atrium Normal left atrial size. Mitral Valve Structurally normal mitral valve. No mitral valve regurgitation. Aortic Valve Structurally normal trileaflet aortic valve. No aortic valve stenosis. Tricuspid Valve Structurally normal tricuspid valve. Pulmonic Valve Structurally normal pulmonic valve. Pericardium No pericardial effusion. Aorta Normal size aortic root and proximal ascending aorta. IVC Normal inferior vena cava. CONCLUSIONS Normal left ventricular systolic function. LVEF 65%. Normal chamber sizes. No significant valvular abnormality noted. Normal right heart and pulmonary pressures. Yahaira Avila MD (Electronically Signed) Final Date: 02 November 2023 17:37 S
--- NOTE | 2023-11-02 10:49 | P.NPUPN_ITS ---
Subjective NPU 2 Subjective: Patient presented today reporting that he is doing okay. He continues to be a poor historian per staff reports and direct observation. Continues to be confused and having altered mental status reducing his ability to communicate and function cognitively. We discussed the fact that the plan would be for him to move to the neuropsychiatric unit when medically cleared and that we filed a 21-day hold so that his psychiatric care could continue once his ICU treatment was no longer necessary. Mental Status Exam 2 MSE Comments: This is a well-nourished well-developed white male in hospital scrubs with poor grooming and limited eye contact. Multiple tattoos on exposed skin including neck area. No abnormal movements except for psychomotor retardation and significant tremulousness. Somewhat cooperative with exam in moderate distress. Speech was decreased rate and volume and tremulous. Mood not well-described, affect subdued and odd. Thought process mostly disorganized. Thought content: Patient did not really answer questions of lethality as he often responded and trailed off. No questions answered about delusions or perceptual disturbances but he continues to seem to be attending to internal stimuli and having hallucinations auditory and apparently visual. Attention, concentration and memory all are impaired but none were formally tested. He is somewhat alert and oriented person. Insight, judgment and impulse control are impaired. Vitals/I&O/Wt Last Vital Signs Temp 98.1 F 11/02/23 03:00 Pulse 93 11/02/23 10:32 Resp 18 11/02/23 09:00 BP 121/81 11/02/23 08:00 Pulse Ox 97 11/02/23 09:00 O2 Del Method Room Air 11/02/23 09:00 O2 Flow Rate 3 11/01/23 08:07 11/01/23 11/02/23 11/02/23 22:59 06:59 14:59 Intake Total 1794 / 3194 2135.883 / 5329.883 1132 / 1132 Output Total 1550 / 1550 525 / 2075 Balance 244 / 1644 1610.883 / 3254.883 1132 / 1132 Weight last 48 hrs Weight 107.683 kg Weight 102.376 kg Physical Exam 2 Urinary Catheter Management: Hurd: Cath Placed During This Visit: yes Urinary Catheter Date of Insertion: 10/30/23 Urinary Catheter Time of Insertion: 00:01 Data NPU 11/04/23 02:01 11/04/23 02:01 Micro: Microbiology 10/31/23 19:49 Blood Culture - Preliminary Blood Staphylococcus species 10/31/23 19:03 Blood Culture - Preliminary Blood NEGATIVE TO DATE Microbiology 10/31/23 19:49 Blood Blood Culture - Preliminary Staphylococcus species 10/31/23 19:03 Blood Blood Culture - Preliminary NEGATIVE TO DATE A&P Assessment and plan (1) Alcohol intoxication: (2) Suicidal ideation: Plan This is a 47-year-old white male with a long history of alcohol use/addiction and depression and anxiety dealing with severe depression and heavy alcohol use. His condition has been exacerbated by significant personal and legal issues. He is currently in a very challenging time and is in need of help. 1. Continue current medication. 2. Except would discontinue Klonopin and lieu of CIWA protocol for any benzodiazepines or alcohol withdrawal symptoms 3. Continue current observation level. 4.? Transferred to the neuropsychiatric unit when medically cleared to do so. 5.? Will attempt to gather collateral information. 6. Filed 21-day hold paperwork as he continues to not be well enough to participate in psychiatric care given his severe withdrawal he is continuing to experience. Attestations NPU 2 Medical Necessity Statement*: N/A. Please see primary team note for medical necessity. However plan for transfer to neuropsychiatric unit once medically cleared. Coding Level of Care Code Acute Code for [facility] Fwd Diagnoses Alcohol intoxication F10.929 Suicidal ideation R45.851
[2023-11-02] MEDS: vancomycin 1,750 MG/350 ML PIGGYBACK 233.33 MG IV (11:07)
[2023-11-02 11:49] LABS: Triglycerides 251 mg/dL (0-150)
[2023-11-02] MEDS: magnesium sulfate premix 2 GM/50 ML PIGGYBACK IV (11:57)
[2023-11-02] MEDS: potassium chloride ER 20 mEq Tablet 80 MEQ PO (11:57)
[2023-11-02] MEDS: sodium chlor 0.9% + KCl 20 mEq 20 MEQ/1,000 ML BAG 75 MEQ IV (12:05)
--- NOTE | 2023-11-02 14:37 | P.PN_ITS ---
Subjective 2 Subjective: Patient presented today continuing to be fairly out of it and only responding with trailing off answers that are somewhat on target but often demonstrate his confusion per staff reports and direct observation. We discussed that we still intend to have him come down to the neuropsychiatric unit but he needs to be medically cleared first. Vitals/I&O/Wt Last Vital Signs Temp 97.8 F 11/02/23 10:00 Pulse 104 H 11/02/23 12:00 Resp 16 11/02/23 12:00 BP 125/81 11/02/23 12:00 Pulse Ox 93 11/02/23 12:00 O2 Del Method Room Air 11/02/23 12:00 O2 Flow Rate 3 11/01/23 08:07 11/01/23 11/02/23 11/02/23 22:59 06:59 14:59 Intake Total 1794 / 3194 2135.883 / 5329.883 1966 / 1966 Output Total 1550 / 1550 525 / 2075 1150 / 1150 Balance 244 / 1644 1610.883 / 3254.883 817 / 817 Weight last 48 hrs Weight 107.683 kg Weight 102.376 kg Physical Exam 2 Narrative: General: No acute distress, AO x 2-3, drowsy HEENT: PERRLA, pupils bilaterally equal and reactive Chest: Normal vesicular breath sounds, no added sounds, equal good air entry bilaterally CVS: S1-S2 regular, no murmurs, no tachycardia, no gallops, no rubs Abdomen: Soft, nontender, no organomegaly, bowel sounds present Neuro: No focal deficits, no facial deformity, moving all limbs Urinary Catheter Management: Hurd: Cath Placed During This Visit: yes Urinary Catheter Date of Insertion: 10/30/23 Urinary Catheter Time of Insertion: 00:01 Data 11/02/23 03:48 11/02/23 03:48 Micro: Microbiology 10/31/23 19:49 Blood Culture - Preliminary Blood Staphylococcus species 10/31/23 19:03 Blood Culture - Preliminary Blood NEGATIVE TO DATE A&P Assessment and plan (1) Alcohol intoxication: With concerns for delirium tremens. Improving. Continue with phenobarbital for now. 130 mg in 2 divided doses for 24 more hours. Will plan for phenobarbital level in a.m. tomorrow. Further doses of phenobarbital accordingly. Precedex if needed. Patient takes Klonopin 1 mg p.o. every 8 hours as needed. Continue. Thiamine and folic acid. Aspiration, seizure precautions. (2) Bacteremia due to Staphylococcus: 2 out of 4 blood cultures positive from 10/30. Will await complete speciation. Continue with vancomycin and Zosyn. MRSA swab pending. If MRSA swab negative will discontinue vancomycin. Check echocardiogram. If repeat blood cultures positive for a Staph aureus we will plan for CT of the back to rule out discitis. (3) Hypertriglyceridemia: Appreciate CT abdomen pelvis. Low concern for pancreatitis for now. Triglyceride levels normal now. Discontinue insulin drip. Switch fluid to NS with 20 minutes of potassium at 75 cc/h. (4) Elevated liver enzymes: In setting of alcohol abuse. Slight improvement. Associated with hyperbilirubinemia. Appreciate LDH and GGT. Hepatitis panel negative. Appreciate gallbladder ultrasound for no gallstones. Given concerns for possible inflammation cannot rule out infection. Though clinically less likely. Check HIDA scan. (5) Suicidal ideation: Sitter at bedside. Psychiatry consulted. Plan to transfer to Neuropsych Unit once medically cleared. Currently on 96-hour hold. (6) Pancreatitis: In setting of alcohol abuse. Triglyceride levels elevated to more than 1200. Clear liquid diet. (7) Vomiting: In setting of pancreatitis. IV Protonix twice daily. Zofran as needed. (8) Delirium tremens: (9) Thrombocytopenia: Plan Continue with home dose of Klonopin 1 mg p.o. every 8 hours as needed, trazodone 150 mg nightly along with venlafaxine to 25 mg every morning. Back pain: History of trauma in the past. Continue with [place] 5 mg every 6 hours as needed, gabapentin [address] imaging of the back as above if needed. Full code Clear liquid diet Protonix for PUD prophylaxis Lovenox for DVT prophylaxis. Attestations 2 Medical Necessity Statement*: Requires further hospitalization for management of Staphylococcus bacteremia, alcohol withdrawal, suicidal ideation while safe discharge planning is sought Diagnoses Alcohol intoxication F10.929 Bacteremia due to Staphylococcus R78.81; B95.8 Hypertriglyceridemia E78.1 Elevated liver enzymes R74.8 Suicidal ideation R45.851 Pancreatitis K85.90 Vomiting R11.10 Delirium tremens F10.931 Thrombocytopenia D69.6
[2023-11-02 15:10] LABS: Methicillin-Resist S.aureu PCR NOT DETECTED (NOT DETECTED)
--- NOTE | 2023-11-02 15:26 | PC.NURSE ---
critical potassium level called from lab. upon review the lab was ran off of blood that was previously drawn earlier this am. will redraw specimen and rerun the results.
[2023-11-02 16:16] LABS: Potassium 3.6 mmol/L (3.5-5.1)
--- NOTE | 2023-11-02 16:45 | PC.NURSE ---
ultrasound guided iv inserted
--- NOTE | 2023-11-02 18:14 | PC.NURSE ---
shift summary Sat 1:1 with the patient today as the nurse and the sitter. Pt was confused to details such as time and situation in the early part of the shift and the orientation level improved as the day progressed. He increased po intake of fluids and tolerated them well throughout the day and urine output from the beginning of the shift was dark daya has transitioned to light yellow. Patient had his mother as a visitor today. No agitation or aggression noted throughout the day. Tremors and intermittent sweating noted during CIWA assessment. Pt remained afebrile with 1 large loose bowel movement. Electrolytes were replaced today via IV and PO supplementation. Intermittent pain noted to the sciatic nerve area and tenderness to the right and left upper abdomen with palpation. At the end of the shift 2 ivs are noted to the left forearm. Sitter necessity remains due to 96 hour hold with petition for 21 day hold in progress per Dr. Canela. Mother voiced the desire to transfer to [facility] for psychiatric care when medically clear. [facility] approval noted to service dog to visit the patient tomorrow 11/03/23 during allotted visiting hours of 3-4 pm. Charge nurse aware.
--- NOTE | 2023-11-02 19:00 | PC.NURSE ---
Hurd Catheter: No Hurd catheter in place on arrival to shift, Manage Urinary Catheter documentation updated for arrival to shift to reflect this. Unknown date/time catheter removed.
[2023-11-02] MEDS: trazodone 150 mg Tablet PO (20:05)
[2023-11-02] MEDS: oxyCODONE 5 mg IR Tab/Cap 10 MG PO (20:05)
[2023-11-02] MEDS: metoprolol tartrate 25 mg Tablet PO (20:06)
[2023-11-03] VITALS (23 sets, daily range): BP systolic 99–158; BP diastolic 67–111; PULSE 62–88; RESP 10–29; TEMP 36.3–36.7; O2SAT 91–99; BMI 29.7
[2023-11-03] MEDS: sodium chlor 0.9% + KCl 20 mEq 20 MEQ/1,000 ML BAG 75 MEQ IV (01:22)
[2023-11-03] MEDS: blistex lip oint 7 gm Tube 1 APPLIC TOPICAL (01:24)
[2023-11-03 04:21] LABS: Basophils % 0.3 %; Eosinophils # 0.2 10^3/uL (0.0-0.8); Lymphocytes # 1.1 10^3/uL (0.8-4.8); Lymphocytes % 27.8 %; Mean Corpuscular HGB Conc 33.6 g/dL (30-55); Mean Corpuscular Volume 95.1 fl (82-101); Mean Platelet Volume 10.4 fL (7.4-10.4); Monocytes # 0.4 10^3/uL (0.2-0.9); Monocytes % 10.1 %; Neutrophils # 2.17 10^3/uL (1.8-7.7); Neutrophils % 57.3 %; Nucleated Red Blood Cells % 0 %; Platelet Count 98 10^3/cmm (157-399); Red Blood Count 3.47 10^6/uL (3.85-5.65); Red Cell Distribution Width 14.1 % (12.1-15.1); White Blood Count 3.78 10^3/uL (3.29-11.43)
[2023-11-03 04:42] LABS: Alanine Aminotransferase 166 U/L (0-41); Albumin Level 2.9 g/dL (3.5-5.2); Alkaline Phosphatase 249 U/L (40-130); Anion Gap 11.7 (5-19); Aspartate Amino Transferase 175 U/L (0-40); Blood Urea Nitrogen 2 mg/dL (6-20); Calcium 7.9 mg/dL (8.5-10.5); Carbon Dioxide 28 mmol/L (22-29); Chloride 105 mmol/L (98-107); Creatinine Clr Calc Pharmacy 121.1237; Globulin 2.6 g/dL (1.3-4.6); Glomerular Filtration Rate 80.1 mL/min (90-130); Glucose 75 mg/dL (65-115); Osmolality Calculated 287 mOsm/kg (285-295); Potassium 3.7 mmol/L (3.5-5.1); Sodium 141 mmol/L (136-145); Total Bilirubin 1.8 mg/dL (0.15-1.2); Total Protein 5.5 g/dL (6.6-8.7)
[2023-11-03] MEDS: piperacillin-tazobactam 3.375 GM in sodium chloride 0.9% (plus) 50 ML IV ×3 (05:38→20:03)
[2023-11-03] MEDS: HYDROcodone-acetaminophen 5-325 mg Tablet 1 TAB PO (05:39)
[2023-11-03] MEDS: venlafaxine ER (24HR) 75 mg Capsule 225 MG PO (05:39)
--- NOTE | 2023-11-03 07:52 | CTR_ITS ---
PROCEDURE INFORMATION: Exam: CT Lumbar Spine With Contrast Exam date and time: 11/03/2023 9:06 AM Age: 47 years old Clinical indication: Low back pain; Patient HX: Discitis; Additional info: Sciatic pain TECHNIQUE: Imaging protocol: Computed tomography of the lumbar spine with contrast. Radiation optimization: All CT scans at this facility use at least one of these dose optimization techniques: automated exposure control; mA and/or kV adjustment per patient size (includes targeted exams where dose is matched to clinical indication); or iterative reconstruction. Contrast material: OMNI 350; Contrast volume: 100 ml; Contrast route: INTRAVENOUS (IV); COMPARISON: CT abdomen pelvis w con 11/01/2023 RADIATION DOSE METRICS: Total DLP (mGy-cm): 828.62 FINDINGS: Chronic multilevel lumbar degenerative disc disease and facet arthropathy appears similar to 11/01/2023 CT exam. There are variable degrees of rdnf-di-krbnqxoy ventral impression on thecal sac and nerve roots at the L3-L4, L4-L5, and L5-S1 levels. Vacuum disc phenomena noted at the L3-L4 level and trace vacuum disc phenomenon at L4-L5.. No interval bone destruction or new soft tissue inflammatory process is evident compared to the prior exam. Paravertebral fat planes are preserved. CT/CT lumbar spine w con [id number] IMPRESSION: Chronic multilevel lumbar degenerative disc disease and lower lumbar facet DJD. There is currently no convincing evidence of acute lumbar discitis and no evidence of lumbar epidural abscess.
[2023-11-03] MEDS: oxyCODONE 10 mg ER (12 HR) Tablet PO ×2 (08:55→17:03)
[2023-11-03] MEDS: gabapentin 300 mg Capsule PO ×2 (08:56→17:03)
[2023-11-03] MEDS: thiamine 100 mg Tablet PO (08:56)
[2023-11-03] MEDS: tizanidine 4 mg Tablet PO (08:56)
[2023-11-03] MEDS: multivitamin therapeutic Tablet 1 TAB PO (08:56)
[2023-11-03] MEDS: pantoprazole 40 mg SDV IVP ×2 (08:57→17:02)
[2023-11-03] MEDS: folic acid 1 mg Tablet PO (08:57)
[2023-11-03] MEDS: enoxaparin 40 mg/0.4 mL Syringe SUBCUT (08:57)
[2023-11-03] MEDS: iohexol 350 mg/mL 500 mL Btl (per mL) IV (09:09)
[2023-11-03] MEDS: morphine 4 mg/mL SDV 1 mL 1 MG IVP ×2 (09:15→21:17)
[2023-11-03] MEDS: metoprolol tartrate 25 mg Tablet PO (09:39)
--- NOTE | 2023-11-03 12:13 | W.PM.NPUPNS ---
Subjective NPU Subjective: 47-year-old male with alcohol dependence admitted initially to the ICU with significant alcohol use and lack of oral intake for several weeks. The patient had been very confused for several days but appeared better today and more lucid when evaluated on the medical floor. He had reported desire to want to receive substance abuse services having received it in the distant past for his alcohol abuse. He reports that his mother had already been working on trying to get the patient into a rehabilitation facility through the veterans [facility] in [facility]. He reported considerable pain and requested an increase in medications to help manage his abdominal discomfort at this time. He had reported depression but it reported that his mood had been worst as his drinking had increased over the past few months. He had reported a previous history of significant withdrawal symptoms. Mental Status Exam MSE Comments: This is a well-nourished well-developed white male in hospital scrubs with poor grooming and limited eye contact. Multiple tattoos on exposed skin including neck area. No abnormal movements except for psychomotor retardation and mild tremulousness. He was friendly and cooperative with exam in moderate distress. Speech was improved in regards to rate and volume. Mood described as depressed. Affect was restricted. Thought process was linear and organized. Thought content: he had minimized suicidal ideation and homicidal ideation but expressed concern that he was killing himself by using alcohol. He did not appear to be responding to internal stimuli. Attention span appeared improved. Recent and remote memory appeared better. He is somewhat alert and oriented person, place and situation today. Insight, judgment and impulse control are impaired. Vitals/I&O/Wt Last Vital Signs Temp 97.9 F 11/03/23 00:20 Pulse 84 11/03/23 10:00 Resp 20 H 11/03/23 10:00 BP 137/92 11/03/23 10:00 Pulse Ox 96 11/03/23 10:00 O2 Del Method Room Air 11/03/23 08:27 O2 Flow Rate 2 11/02/23 19:00 11/02/23 11/03/23 11/03/23 22:59 06:59 14:59 Intake Total 1426.25 / 3393.25 320 / 3713.25 450 / 450 Output Total 1000 / 2150 900 / 3050 420 / 420 Balance 426.25 / 1243.25 -580 / 663.25 30 / 30 Weight last 48 hrs Weight 107.671 kg Weight 107.683 kg Physical Exam Urinary Catheter Management: Hurd: Cath Placed During This Visit: yes, but has since been removed by the nurse Reason for Continuing Indwelling Catheter: Decision to DC Catheter Urinary Catheter Date of Insertion: 10/30/23 Urinary Catheter Time of Insertion: 00:01 Date Urinary Catheter Removed: 11/02/23 Time Urinary Catheter Discontinued: 19:00 Data NPU 11/04/23 02:01 11/04/23 02:01 Micro: Microbiology 11/03/23 04:01 Blood Culture - Preliminary Blood SPECIMEN COLLECTED 11/03/23 04:01 Blood Culture - Preliminary Blood SPECIMEN COLLECTED 10/31/23 19:49 Blood Culture - Preliminary Blood Staphylococcus species Microbiology 11/03/23 04:01 Blood Blood Culture - Preliminary SPECIMEN COLLECTED 11/03/23 04:01 Blood Blood Culture - Preliminary SPECIMEN COLLECTED 10/31/23 19:49 Blood Blood Culture - Preliminary Staphylococcus species A&P Assessment and plan (1) Alcohol intoxication: (2) Suicidal ideation: Plan This is a 47-year-old white male with a long history of alcohol use/addiction and depression and anxiety dealing with severe depression and heavy alcohol use. His condition has been exacerbated by significant personal and legal issues. He is currently in a very challenging time and is in need of help. 1. Continue current medication. 2. Continue ciwa. 3. Continue current observation level. 4.? Transferred to the neuropsychiatric unit but may benefit from direct transfer to inpatient substance abuse treatment facility through [facility] or [facility]. 5.? Will attempt to gather collateral information. 6. Filed 21-day hold paperwork as he continues to not be well enough to participate in psychiatric care given his severe withdrawal he is continuing to experience. Attestations NPU Medical Necessity Statement*: N/A. Please see primary team note for medical necessity. However plan for transfer to neuropsychiatric unit once medically cleared. Coding Level of Care Code Acute Code for [facility] Fwd Diagnoses Alcohol intoxication F10.929 Suicidal ideation R45.850
[2023-11-03] MEDS: oxyCODONE 5 mg IR Tab/Cap PO ×2 (12:27→20:37)
--- NOTE | 2023-11-03 14:00 | P.PN_ITS ---
Subjective 2 Subjective: No acute events overnight. Patient has remained calm and stable. Today morning complaining of back pain. Sitting up in chair. Denies any nausea counting, headache. Tolerating diet. Less tremulous. Vitals/I&O/Wt Last Vital Signs Temp 97.9 F 11/03/23 00:20 Pulse 68 11/03/23 12:00 Resp 16 11/03/23 12:27 BP 99/67 11/03/23 12:00 Pulse Ox 91 11/03/23 12:00 O2 Del Method Room Air 11/03/23 08:27 O2 Flow Rate 2 11/02/23 19:00 11/02/23 11/03/23 11/03/23 22:59 06:59 14:59 Intake Total 1426.25 / 3393.25 320 / 3713.25 1616.25 / 1616.25 Output Total 1000 / 2150 900 / 3050 420 / 420 Balance 426.25 / 1243.25 -580 / 663.25 1196.25 / 1196.25 Weight last 48 hrs Weight 107.671 kg Weight 107.683 kg Physical Exam 2 Narrative: General: No acute distress, AO x 2-3, drowsy HEENT: PERRLA, pupils bilaterally equal and reactive Chest: Normal vesicular breath sounds, no added sounds, equal good air entry bilaterally CVS: S1-S2 regular, no murmurs, no tachycardia, no gallops, no rubs Abdomen: Soft, nontender, no organomegaly, bowel sounds present Neuro: No focal deficits, no facial deformity, moving all limbs Urinary Catheter Management: Hurd: Cath Placed During This Visit: yes, but has since been removed by the nurse Reason for Continuing Indwelling Catheter: Decision to DC Catheter Urinary Catheter Date of Insertion: 10/30/23 Urinary Catheter Time of Insertion: 00:01 Date Urinary Catheter Removed: 11/02/23 Time Urinary Catheter Discontinued: 19:00 Data 11/03/23 04:01 11/03/23 04:01 Micro: Microbiology 11/03/23 04:01 Blood Culture - Preliminary Blood SPECIMEN COLLECTED 11/03/23 04:01 Blood Culture - Preliminary Blood SPECIMEN COLLECTED A&P Assessment and plan (1) Alcohol intoxication: With concerns for delirium tremens which have now resolved.. Overall improving. Continue with phenobarbital for now. Appreciate phenobarbital levels. Continue 30 mg twice daily for 2 more days and then will stop. Patient takes Klonopin 1 mg p.o. every 8 hours as needed. Continue. Thiamine and folic acid. Aspiration, seizure precautions. (2) Bacteremia due to Staphylococcus: 2 out of 4 blood cultures positive from 10/30. Will await complete speciation. Continue with Zosyn. MRSA swab negative. Discontinue vancomycin. Echocardiogram negative for infective endocarditis. CT back negative for discitis. (3) Hypertriglyceridemia: Appreciate CT abdomen pelvis. Low concern for pancreatitis for now. Triglyceride levels normal now. Discontinue insulin drip. Patient tolerating oral well. Will stop IV fluids. (4) Elevated liver enzymes: In setting of alcohol abuse. Slight improvement. Associated with hyperbilirubinemia. Appreciate LDH and GGT. Hepatitis panel negative. Appreciate gallbladder ultrasound for no gallstones. Given concerns for possible inflammation cannot rule out infection. Though clinically less likely. Check HIDA scan. (5) Suicidal ideation: Sitter at bedside. Psychiatry consulted. Plan to transfer to Neuropsych Unit once medically cleared. Currently on 96-hour hold. (6) Pancreatitis: In setting of alcohol abuse. Triglyceride levels elevated to more than 1200. Clear liquid diet. (7) Vomiting: In setting of pancreatitis. IV Protonix twice daily. Zofran as needed. (8) Delirium tremens: (9) Thrombocytopenia: Plan Continue with home dose of Klonopin 1 mg p.o. every 8 hours as needed, trazodone 150 mg nightly along with venlafaxine to 25 mg every morning. Back pain: History of trauma in the past. Appreciate CT back results. Continue with gabapentin 300 mg twice daily, add tizanidine 4 mg every 8 hours as needed. Change pain medication to OxyContin 10 mg twice daily and oxycodone every 6 hours as needed. Physical therapy. Full code Advance to mechanical soft diet Protonix for PUD prophylaxis Lovenox for DVT prophylaxis. Transfer to MedSurg floor. Attestations 2 Medical Necessity Statement*: Requires further hospitalization for management of staph bacteremia, alcohol withdrawal in a patient admitted for suicidal ideation Diagnoses Alcohol intoxication F10.929 Bacteremia due to Staphylococcus R78.81; B95.8 Hypertriglyceridemia E78.1 Elevated liver enzymes R74.8 Suicidal ideation R45.851 Pancreatitis K85.90 Vomiting R11.10 Delirium tremens F10.931 Thrombocytopenia D69.6
--- NOTE | 2023-11-03 14:05 | PC.NURSE ---
Transfer Note Patient transferred to med-surg room 251-2 from ICU via wheelchair. Handoff report given to DALIA Wells. Patient oriented to environment and equipment. Covering service notified. Orders reviewed and will continue to monitor. Family notified. Upon transfer patient is alert/oriented x4 on room air. No wounds or skin issues noted at this time. 1:1 sitter cont. & remains at bedside upon transfer.
[2023-11-03] MEDS: CLONazepam 1 mg Tablet PO (17:03)
[2023-11-03] MEDS: PHENobarbital 130 mg/mL SDV 1 mL 30 MG IVP (17:03)
[2023-11-03] MEDS: metoprolol tartrate 25 mg Tablet 12.5 MG PO (20:04)
[2023-11-03] MEDS: trazodone 150 mg Tablet PO (20:05)
[2023-11-03] MEDS: ondansetron 2 mg/ML SDV 2 mL 4 MG IVP (21:17)
[2023-11-04] VITALS (11 sets, daily range): BP systolic 104–138; BP diastolic 66–91; PULSE 64–76; RESP 16–20; TEMP 36.4–36.8; O2SAT 90–96
[2023-11-04 02:36] LABS: Basophils % 0.5 %; Eosinophils # 0.2 10^3/uL (0.0-0.8); Eosinophils % 3.7 %; Hematocrit 29.9 % (37-53); Lymphocytes # 0.9 10^3/uL (0.8-4.8); Lymphocytes % 23.2 %; Mean Corpuscular HGB Conc 33.4 g/dL (30-55); Mean Corpuscular Hemoglobin 32.4 pg (27-33); Mean Corpuscular Volume 96.8 fl (82-101); Mean Platelet Volume 10.3 fL (7.4-10.4); Monocytes # 0.5 10^3/uL (0.2-0.9); Monocytes % 11.8 %; Neutrophils # 2.43 10^3/uL (1.8-7.7); Neutrophils % 59.8 %; Nucleated Red Blood Cells % 0 %; Platelet Count 114 10^3/cmm (157-399); Red Blood Count 3.09 10^6/uL (3.85-5.65); Red Cell Distribution Width 14.2 % (12.1-15.1); White Blood Count 4.06 10^3/uL (3.29-11.43)
[2023-11-04] MEDS: PHENobarbital 130 mg/mL SDV 1 mL 30 MG IVP ×2 (03:39→17:26)
[2023-11-04] MEDS: piperacillin-tazobactam 3.375 GM in sodium chloride 0.9% (plus) 50 ML IV ×3 (03:39→20:23)
[2023-11-04 03:50] LABS: Alanine Aminotransferase 132 U/L (0-41); Albumin Level 2.7 g/dL (3.5-5.2); Alkaline Phosphatase 215 U/L (40-130); Anion Gap 11.5 (5-19); Aspartate Amino Transferase 115 U/L (0-40); Blood Urea Nitrogen 1 mg/dL (6-20); Calcium 7.9 mg/dL (8.5-10.5); Carbon Dioxide 27 mmol/L (22-29); Chloride 101 mmol/L (98-107); Creatinine Clr Calc Pharmacy 121.1175; Globulin 2.3 g/dL (1.3-4.6); Glomerular Filtration Rate 80.1 mL/min (90-130); Glucose 83 mg/dL (65-115); Osmolality Calculated 277 mOsm/kg (285-295); Potassium 3.5 mmol/L (3.5-5.1); Sodium 136 mmol/L (136-145); Total Bilirubin 1.1 mg/dL (0.15-1.2)
[2023-11-04] MEDS: oxyCODONE 5 mg IR Tab/Cap PO (04:41)
[2023-11-04] MEDS: venlafaxine ER (24HR) 75 mg Capsule 225 MG PO (05:24)
[2023-11-04] MEDS: morphine 4 mg/mL SDV 1 mL 1 MG IVP ×3 (05:25→21:09)
[2023-11-04] MEDS: multivitamin therapeutic Tablet 1 TAB PO (10:08)
[2023-11-04] MEDS: folic acid 1 mg Tablet PO (10:08)
[2023-11-04] MEDS: gabapentin 300 mg Capsule PO ×2 (10:08→17:31)
[2023-11-04] MEDS: tizanidine 4 mg Tablet PO (10:08)
[2023-11-04] MEDS: pantoprazole 40 mg SDV IVP ×2 (10:08→17:31)
[2023-11-04] MEDS: enoxaparin 40 mg/0.4 mL Syringe SUBCUT (10:08)
[2023-11-04] MEDS: oxyCODONE 10 mg ER (12 HR) Tablet PO ×2 (10:09→17:31)
[2023-11-04] MEDS: metoprolol tartrate 25 mg Tablet 12.5 MG PO ×2 (10:09→20:24)
[2023-11-04] MEDS: thiamine 100 mg Tablet PO (10:09)
[2023-11-04] MEDS: CLONazepam 1 mg Tablet PO (10:09)
[2023-11-04] MEDS: ondansetron 2 mg/ML SDV 2 mL 4 MG IVP (13:09)
[2023-11-04 15:02] LABS: Add Urine Microscopic? NO; Charge for UA Resulting for Rev
[2023-11-04 15:07] LABS: Bilirubin Urine Neg (Negative); Blood Urine Neg (Negative); Glucose Urine UA Norm (Normal); Ketones Urine Negative (Negative); Leukocyte Esterase Urine Negative (Negative); Nitrate Urine Negative (Negative); Protein Urine Neg (Negative); Specific Gravity, Urine 1.015 (1.005-1.030); Urine Appearance Clear (CLEAR); Urine Color Yellow (Yellow); Urobilinogen Urine Norm (Negative); pH Urine 7 (5-7)
--- NOTE | 2023-11-04 15:15 | P.PN_ITS ---
Subjective 2 Subjective: He reports he is doing somewhat better. Has been having pain in the frontal abdomen/abdominal wall. Reports some generalized mild pruritus. No rash. Later on reports dysuria. Vitals/I&O/Wt Last Vital Signs Temp 98.2 F 11/04/23 12:00 Pulse 75 11/04/23 12:00 Resp 17 11/04/23 13:09 BP 138/72 11/04/23 12:00 Pulse Ox 92 11/04/23 13:09 O2 Del Method Room Air 11/04/23 12:00 O2 Flow Rate 2 11/02/23 19:00 11/04/23 11/04/23 11/04/23 06:59 14:59 22:59 Intake Total 750 / 2896.25 890 / 890 Output Total 1000 / 2470 625 / 625 Balance -250 / 426.25 265 / 265 Weight last 48 hrs Weight 113.398 kg Weight 107.671 kg Physical Exam 2 Const: COMMON NORMALS: patient oriented x3 and alert GENERAL APPEARANCE: c ooperative ORIENTATION/CONSCIOUSNESS: Yes awake HENMT: COMMON NORMALS: oropharynx normal Neck/C-Spine: COMMON NORMALS: no JVD Resp: COMMON NORMALS: normal respiratory effort and clear to auscultation bilaterally AUSCULTATION: clear to auscultation bilaterally Cardio: COMMON NORMALS: no JVD, regular rhythm, S1 normal heart sound present, S2 normal heart sound present and No murmurs present (Cardio) RHYTHM: regular rhythm HEART SOUNDS: S1 normal heart sound present and S2 normal heart sound present GI: COMMON NORMALS: Normal to inspection, nondistended, normoactive bowel sounds present, Soft to palpation and non-tender PALPATION: Yes Soft to palpation Extremity: COMMON NORMALS: no joint enlargement and no pedal edema Neuro: COMMON NORMALS: patient oriented x3 and moves all extremities S ENSORIUM/ORIENTATION: Yes alert Skin: COMMON NORMALS: no rashes or lesions noted GENERAL SKIN EXAM: no rashes or lesions noted OTHER: Extensive tattoos. No rash or lesions. Urinary Catheter Management: Hurd: Cath Placed During This Visit: yes, but has since been removed by the nurse Reason for Continuing Indwelling Catheter: Decision to DC Catheter Urinary Catheter Date of Insertion: 10/30/23 Urinary Catheter Time of Insertion: 00:01 Date Urinary Catheter Removed: 11/02/23 Time Urinary Catheter Discontinued: 19:00 Data 11/04/23 02:01 11/04/23 02:01 Micro: Microbiology 10/31/23 19:49 Blood Culture - Preliminary Blood Staphylococcus species Staphylococcus aureus 11/03/23 04:01 Blood Culture - Preliminary Blood NEGATIVE TO DATE 11/03/23 04:01 Blood Culture - Preliminary Blood NEGATIVE TO DATE 10/31/23 19:03 Blood Culture - Preliminary Blood A&P Assessment and plan (1) Bacteremia due to Staphylococcus: Reviewed blood cultures, 4 out of 4 blood cultures positive for Staph aureus. Resistant to penicillin, but so far has been improving with Zosyn. Vancomycin was discontinued. Risk of treatment failure. Stopped Zosyn, switched to ceftriaxone Reviewed CBC, CMP. Reviewed prelim blood culture 11/02, so far pending. Continue antibiotic. Discussed with him consideration of NISHANT. Consider if mental status remains okay after alcohol withdrawal. Obtain CRP/ESR. Source of the bacteremia so far is unclear, he denies any IVDU, denies any skin infection, any recent tattoos. Continue with Zosyn. MRSA swab negative. Discussed with piano case and bench assembler. Echocardiogram negative for infective endocarditis. CT back negative for discitis. (2) Alcohol intoxication: With concerns for delirium tremens which have now resolved. Monitor for risk of encephalopathy, respiratory depression with IV phenobarbital. Stop phenobarbital after today. Overall improving. Thiamine and folic acid. (3) Hypertriglyceridemia: Reviewed triglycerides, improving. Appreciate CT abdomen pelvis. Low concern for pancreatitis for now. Triglyceride levels normal now. Discontinue insulin drip. (4) Elevated liver enzymes: In setting of alcohol abuse. Slight improvement. Associated with hyperbilirubinemia. Appreciate LDH and GGT. Hepatitis panel negative. Appreciate gallbladder ultrasound for no gallstones. Given concerns for possible inflammation cannot rule out infection. Though clinically less likely. Check HIDA scan. (5) Suicidal ideation: Reviewed psychiatry note. Sitter at bedside. Psychiatry consulted. Plan to transfer to Neuropsych Unit once medically cleared. Currently on 96-hour hold. (6) Pancreatitis: In setting of alcohol abuse. Triglyceride levels elevated to more than 1200. Clear liquid diet. (7) Vomiting: Now resolved, but is having frontal abdominal/abdominal wall soreness/tenderness likely after dry heaving, vomiting close possibly pancreatitis. Reassess. In setting of pancreatitis. IV Protonix twice daily. Zofran as needed. (8) Delirium tremens: (9) Thrombocytopenia: Plan Dysuria: Obtain UA Mild generalized pruritus: Add calamine lotion Continue with home dose of Klonopin 1 mg p.o. every 8 hours as needed, trazodone 150 mg nightly along with venlafaxine to 25 mg every morning. Back pain: History of trauma in the past. Appreciate CT back results. Continue with gabapentin 300 mg twice daily, add tizanidine 4 mg every 8 hours as needed. OxyContin 10 mg twice daily and oxycodone every 6 hours as needed. Physical therapy. Full code Mechanical soft diet Protonix for PUD prophylaxis Lovenox for DVT prophylaxis. Attestations 2 Medical Necessity Statement*: Continue admission for assessment of management of staphylococcal bacteremia with possible endocarditis, risk of distant septic embolization, continue IV antibiotics, additional assessment and consideration of NISHANT, antibiotic duration. and High MDM includes amount and/or complexity of data reviewed/ordered [ previous or external records, resulted lab(s)/test(s), ordered lab(s)/test(s) and other healthcare professional discussion] and described risk of complication, morbidity or mortality of management as documented Diagnoses Bacteremia due to Staphylococcus R78.81; B95.8 Alcohol intoxication F10.929 Hypertriglyceridemia E78.1 Elevated liver enzymes R74.8 Suicidal ideation R45.851 Pancreatitis K85.90 Vomiting R11.10 Delirium tremens F10.931 Thrombocytopenia D69.6
[2023-11-04 15:34] LABS: Erythrocyte Sedimentation Rate 15 mm/hr (0-10)
[2023-11-04 15:46] LABS: C Reactive Protein 44.2 mg/L (0.0-4.9)
--- NOTE | 2023-11-04 18:10 | P.NPUPN_ITS ---
Subjective NPU 2 Subjective: 47-year-old male with alcohol dependence admitted initially to the ICU with significant alcohol use and lack of oral intake for several weeks. The patient had been very confused for several days but appeared better today and more lucid when evaluated on the medical floor. He was compliant with treatment. He reported no side effects from his medication. He had reported some difficulties with falling asleep. He had acknowledged having depression but reported no thoughts of suicide. He had expressed desire to be placed in a substance abuse treatment facility particularly through the [place] facility in [facility]. No behavior issues on medical unit noted with compliance with treatment appreciated. Mental Status Exam 2 MSE Comments: This is a well-nourished well-developed white male in hospital scrubs with poor grooming and limited eye contact. He appeared pale and at times appeared nauseous. Multiple tattoos on exposed skin including neck area. No abnormal movements except for psychomotor retardation and mild tremulousness. He was friendly and cooperative with exam in moderate distress. Speech was improved in regards to rate and volume. Mood described as depressed. Affect was restricted. Thought process was linear and organized. Thought content: he had minimized suicidal ideation and homicidal ideation although acknowledging that his alcohol use was excessive. He did not appear to be responding to internal stimuli. Attention span appeared improved. Recent and remote memory appeared better. He is somewhat alert and oriented person, place and situation today. Insight was improving. Judgment was improving and impulse control appeared improved. Vitals/I&O/Wt Last Vital Signs Temp 98 F 11/04/23 16:00 Pulse 65 11/04/23 16:00 Resp 16 11/04/23 16:00 BP 131/71 11/04/23 16:00 Pulse Ox 94 11/04/23 16:00 O2 Del Method Room Air 11/04/23 12:00 O2 Flow Rate 2 11/02/23 19:00 11/04/23 11/04/23 11/04/23 06:59 14:59 22:59 Intake Total 750 / 2896.25 890 / 890 50 / 940 Output Total 1000 / 2470 625 / 625 Balance -250 / 426.25 265 / 265 50 / 315 Weight last 48 hrs Weight 113.398 kg Weight 107.671 kg Physical Exam 2 Urinary Catheter Management: Hurd: Cath Placed During This Visit: yes, but has since been removed by the nurse Reason for Continuing Indwelling Catheter: Decision to DC Catheter Urinary Catheter Date of Insertion: 10/30/23 Urinary Catheter Time of Insertion: 00:01 Date Urinary Catheter Removed: 11/02/23 Time Urinary Catheter Discontinued: 19:00 Data NPU 11/05/23 11:02 11/05/23 11:02 Micro: Microbiology 10/31/23 19:49 Blood Culture - Preliminary Blood Staphylococcus species Staphylococcus aureus 11/03/23 04:01 Blood Culture - Preliminary Blood NEGATIVE TO DATE 11/03/23 04:01 Blood Culture - Preliminary Blood NEGATIVE TO DATE 10/31/23 19:03 Blood Culture - Preliminary Blood Microbiology 10/31/23 19:49 Blood Blood Culture - Preliminary Staphylococcus species Staphylococcus aureus 11/03/23 04:01 Blood Blood Culture - Preliminary NEGATIVE TO DATE 11/03/23 04:01 Blood Blood Culture - Preliminary NEGATIVE TO DATE 10/31/23 19:03 Blood Blood Culture - Preliminary A&P Assessment and plan (1) Alcohol intoxication: (2) Suicidal ideation: Plan This is a 47-year-old white male with a long history of alcohol use/addiction and depression and anxiety dealing with severe depression and heavy alcohol use. His condition has been exacerbated by significant personal and legal issues. He is currently in a very challenging time and is in need of help. 1. Continue medications, add seroquel 100mg at night for depression adjunctively. 2. Continue ciwa. 3. Continue current observation level. 4.? Transferred to the neuropsychiatric unit but may benefit from direct transfer to inpatient substance abuse treatment facility through [place] center in [facility]. 5.? Will attempt to gather collateral information. . Attestations NPU 2 Medical Necessity Statement*: N/A. Please see primary team note for medical necessity. Patient improving mentally and may not require inpatient psychiatric hospitalization when stabilized. Coding Level of Care Code Acute Code for [facility] Fwd Diagnoses Alcohol intoxication F10.929 Suicidal ideation R45.851
[2023-11-04] MEDS: quetiapine 100 mg Tablet PO (20:24)
[2023-11-04] MEDS: trazodone 150 mg Tablet PO (20:32)
[2023-11-05] VITALS (8 sets, daily range): BP systolic 129–149; BP diastolic 83–95; PULSE 79–91; RESP 16–20; TEMP 36.6–36.8; O2SAT 90–96
[2023-11-05] MEDS: oxyCODONE 5 mg IR Tab/Cap PO ×2 (00:54→12:41)
--- NOTE | 2023-11-05 01:03 | PC.NURSE ---
pt voided total of 6 times 500ml each since 1899, bladder scanned after this void showed 45ml residual.
[2023-11-05] MEDS: PHENobarbital 130 mg/mL SDV 1 mL 30 MG IVP (04:07)
[2023-11-05] MEDS: piperacillin-tazobactam 3.375 GM in sodium chloride 0.9% (plus) 50 ML IV ×2 (04:07→12:05)
[2023-11-05] MEDS: venlafaxine ER (24HR) 75 mg Capsule 225 MG PO (05:13)
[2023-11-05] MEDS: morphine 4 mg/mL SDV 1 mL 1 MG IVP ×2 (06:04→14:20)
[2023-11-05] MEDS: enoxaparin 40 mg/0.4 mL Syringe SUBCUT (09:13)
[2023-11-05] MEDS: thiamine 100 mg Tablet PO (09:15)
[2023-11-05] MEDS: pantoprazole 40 mg SDV IVP ×2 (09:15→17:43)
[2023-11-05] MEDS: folic acid 1 mg Tablet PO (09:15)
[2023-11-05] MEDS: oxyCODONE 10 mg ER (12 HR) Tablet PO ×2 (09:15→17:45)
[2023-11-05] MEDS: multivitamin therapeutic Tablet 1 TAB PO (09:15)
[2023-11-05] MEDS: gabapentin 300 mg Capsule PO ×2 (09:15→17:46)
[2023-11-05] MEDS: metoprolol tartrate 25 mg Tablet 12.5 MG PO ×2 (09:15→20:42)
[2023-11-05] MEDS: ondansetron 2 mg/ML SDV 2 mL 4 MG IVP (09:19)
[2023-11-05] MEDS: PHENobarbital 32.4 mg Tablet PO ×2 (10:36→17:45)
[2023-11-05 11:12] LABS: Hematocrit 32.1 % (37-53); Mean Corpuscular Hemoglobin 32.4 pg (27-33); Mean Corpuscular Volume 98.2 fl (82-101); Platelet Count 151 10^3/cmm (157-399); Red Blood Count 3.27 10^6/uL (3.85-5.65); Red Cell Distribution Width 14.4 % (12.1-15.1); White Blood Count 7.41 10^3/uL (3.29-11.43)
[2023-11-05 11:35] LABS: Alanine Aminotransferase 99 U/L (0-41); Albumin Level 2.9 g/dL (3.5-5.2); Alkaline Phosphatase 199 U/L (40-130); Anion Gap 15.3 (5-19); Aspartate Amino Transferase 81 U/L (0-40); Blood Urea Nitrogen 4 mg/dL (6-20); Calcium 8.3 mg/dL (8.5-10.5); Carbon Dioxide 25 mmol/L (22-29); Chloride 102 mmol/L (98-107); Creatinine Clr Calc Pharmacy 121.7329; Globulin 3.1 g/dL (1.3-4.6); Glomerular Filtration Rate 80.1 mL/min (90-130); Glucose 102 mg/dL (65-115); Osmolality Calculated 283 mOsm/kg (285-295); Potassium 4.3 mmol/L (3.5-5.1); Sodium 138 mmol/L (136-145); Total Bilirubin 0.8 mg/dL (0.15-1.2)
[2023-11-05 11:40] LABS: Slide Review Slide Review Perform
[2023-11-05 11:43] LABS: Absolute Eosinophils 0.2 10^3/cmm (0.0-0.7); Absolute Segmented Neutrophil 4.9 10/cmm (1.6-7.1); Band Neutrophils Absolute 0.1 10^3/cmm (0.0-1.2); Eosinophils 3 %; Lymphocytes 12 %; Platelet Estimate Normal (Normal); Segmented Neutrophils 66 %; Stomatocytes 1+; Total Cells Counted 100 (0-100)
[2023-11-05 11:44] LABS: Lymphocytes Absolute 0.9 10^3/cmm (1.2-3.4)
--- NOTE | 2023-11-05 14:42 | CTR_ITS ---
PROCEDURE INFORMATION: Exam: CT Head Without And With Contrast Exam date and time: 11/05/2023 5:16 PM Age: 47 years old Clinical indication: Pain; Headache; Additional info: Headache, bacteremia, assess for any abscess/mass TECHNIQUE: Imaging protocol: Computed tomography of the head without and with contrast. Radiation optimization: All CT scans at this facility use at least one of these dose optimization techniques: automated exposure control; mA and/or kV adjustment per patient size (includes targeted exams where dose is matched to clinical indication); or iterative reconstruction. Contrast material: OMNI 350; Contrast volume: 100 ml; Contrast route: INTRAVENOUS (IV); COMPARISON: No relevant prior studies available. RADIATION DOSE METRICS: Total DLP (mGy-cm): 2253 FINDINGS: Brain: No hemorrhage or infarction.. Unremarkable white matter. No mass effect. Cerebral ventricles: No ventriculomegaly. Paranasal sinuses: Visualized sinuses are unremarkable. No fluid levels. Mastoid air cells: Visualized mastoid air cells are well aerated. Bones: Unremarkable. No acute fracture. Soft tissues: Unremarkable. CT/CT head wo/w con [id number] IMPRESSION: No acute intracranial abnormality.
[2023-11-05] MEDS: iohexol 350 mg/mL 500 mL Btl (per mL) IV (17:36)
--- NOTE | 2023-11-05 19:50 | P.NPUPN_ITS ---
Subjective NPU 2 Subjective: 47-year-old male with alcohol dependence admitted initially to the ICU with significant alcohol use and lack of oral intake for several weeks. Patient continued to have problems with fever and when seen was awaiting lumbar puncture. He appeared more lethargic when seen today. He had been compliant with treatment. He had minimized having thoughts of hurting himself or others and continue to report that he was agreeable to substance abuse treatment particularly for alcohol dependence. The patient had minimized any thoughts of hurting himself directly although he had stated that continued alcohol use was leading to significant medical problems including pancreatitis. Mental Status Exam 2 MSE Comments: This is a well-nourished well-developed white male in hospital scrubs with poor grooming and limited eye contact. He appeared pale and at times appeared nauseous and sickly today. Multiple tattoos on exposed skin including neck area. No abnormal movements except for psychomotor retardation and mild tremulousness. He was friendly and cooperative with exam in moderate distress. Speech was improved in regards to rate and volume. Mood described as depressed. Affect remained restricted. Thought process was linear and organized. Thought content: he had minimized suicidal ideation and homicidal ideation although acknowledging that his alcohol use was excessive. He did not appear to be responding to internal stimuli. Attention span appeared improved. Recent and remote memory appeared better. He is somewhat alert and oriented person, place and situation today. Insight was improving. Judgment was improving and impulse control appeared improved. Vitals/I&O/Wt Last Vital Signs Temp 98.3 F 11/05/23 11:55 Pulse 79 11/05/23 11:55 Resp 18 11/05/23 14:20 BP 149/83 11/05/23 11:55 Pulse Ox 90 11/05/23 11:55 O2 Del Method Room Air 11/05/23 11:55 O2 Flow Rate 2 11/02/23 19:00 11/05/23 11/05/23 11/05/23 06:59 14:59 22:59 Intake Total 410 / 1590 890 / 890 530 / 1420 Output Total 4300 / 5825 1900 / 1900 Balance -3890 / -4235 -1010 / -1010 530 / -480 Weight last 48 hrs Weight 113.489 kg Weight 108.862 kg Weight 113.398 kg Physical Exam 2 Urinary Catheter Management: Hurd: Cath Placed During This Visit: yes, but has since been removed by the nurse Reason for Continuing Indwelling Catheter: Decision to DC Catheter Urinary Catheter Date of Insertion: 10/30/23 Urinary Catheter Time of Insertion: 00:01 Date Urinary Catheter Removed: 11/02/23 Time Urinary Catheter Discontinued: 19:00 Data NPU 11/05/23 11:02 11/05/23 11:02 Micro: Microbiology 10/31/23 19:03 Blood Culture - Final Blood Staphylococcus aureus Staphylococcus simulans 10/31/23 19:49 Blood Culture - Final Blood Staphylococcus simulans Staphylococcus aureus Microbiology 10/31/23 19:03 Blood Blood Culture - Final Staphylococcus aureus Staphylococcus simulans 10/31/23 19:49 Blood Blood Culture - Final Staphylococcus simulans Staphylococcus aureus A&P Assessment and plan (1) Alcohol intoxication: (2) Suicidal ideation: Plan This is a 47-year-old white male with a long history of alcohol use/addiction and depression and anxiety dealing with severe depression and heavy alcohol use. His condition has been exacerbated by significant personal and legal issues. He is currently in a very challenging time and is in need of help. 1. Continue medications, Continue seroquel 100mg at night for depression adjunctively. 2. Continue ciwa. 3. Continue current observation level. 4.? Transferred to the neuropsychiatric unit but may benefit from direct transfer to inpatient substance abuse treatment facility through [place] [facility]. 5.? Cancel 21 day hold, patient to remain and agreeable to medical treatment. . Attestations NPU 2 Medical Necessity Statement*: N/A. Please see primary team note for medical necessity. Patient improving mentally and may not require inpatient psychiatric hospitalization when medically stabilized. Coding Level of Care Code Acute Code for g Fwd Diagnoses Alcohol intoxication F10.929 Suicidal ideation R45.851
--- NOTE | 2023-11-05 20:00 | P.PN_ITS ---
Subjective 2 Subjective: He is feeling worse today, having chills, also having throbbing pain in his lower back as well as headache and seems to keep 1 eye squinting, asking him about it appears to be due to photosensitivity. Vitals/I&O/Wt Last Vital Signs Temp 98.3 F 11/05/23 11:55 Pulse 79 11/05/23 11:55 Resp 18 11/05/23 14:20 BP 149/83 11/05/23 11:55 Pulse Ox 90 11/05/23 11:55 O2 Del Method Room Air 11/05/23 11:55 O2 Flow Rate 2 11/02/23 19:00 11/05/23 11/05/23 11/05/23 06:59 14:59 22:59 Intake Total 410 / 1590 890 / 890 530 / 1420 Output Total 4300 / 5825 1900 / 1900 Balance -3890 / -4235 -1010 / -1010 530 / -480 Weight last 48 hrs Weight 113.489 kg Weight 108.862 kg Weight 113.398 kg Physical Exam 2 Const: COMMON NORMALS: patient oriented x3 and alert GENERAL APPEARANCE: c ooperative ORIENTATION/CONSCIOUSNESS: Yes awake HENMT: COMMON NORMALS: oropharynx normal Neck/C-Spine: COMMON NORMALS: no JVD Resp: COMMON NORMALS: normal respiratory effort and clear to auscultation bilaterally AUSCULTATION: clear to auscultation bilaterally Cardio: COMMON NORMALS: no JVD, regular rhythm, S1 normal heart sound present, S2 normal heart sound present and No murmurs present (Cardio) RHYTHM: regular rhythm HEART SOUNDS: S1 normal heart sound present and S2 normal heart sound present GI: COMMON NORMALS: Normal to inspection, nondistended, normoactive bowel sounds present, Soft to palpation and non-tender PALPATION: Yes Soft to palpation Extremity: COMMON NORMALS: no joint enlargement and no pedal edema Neuro: COMMON NORMALS: patient oriented x3 and moves all extremities S ENSORIUM/ORIENTATION: Yes alert Skin: COMMON NORMALS: no rashes or lesions noted GENERAL SKIN EXAM: no rashes or lesions noted OTHER: Extensive tattoos. No rash or lesions. No external lesion at the site of pain in the lower back. Urinary Catheter Management: Hurd: Cath Placed During This Visit: yes, but has since been removed by the nurse Reason for Continuing Indwelling Catheter: Decision to DC Catheter Urinary Catheter Date of Insertion: 10/30/23 Urinary Catheter Time of Insertion: 00:01 Date Urinary Catheter Removed: 11/02/23 Time Urinary Catheter Discontinued: 19:00 Data 11/05/23 11:02 11/05/23 11:02 Micro: Microbiology 10/31/23 19:03 Blood Culture - Final Blood Staphylococcus aureus Staphylococcus simulans 10/31/23 19:49 Blood Culture - Final Blood Staphylococcus simulans Staphylococcus aureus A&P Assessment and plan (1) Bacteremia due to Staphylococcus: With possible meningitis given headache, photosensitivity. Additionally reports again having bothersome throbbing lower back pain in the center in the lumbosacral region. Reviewed blood culture, so far original culture identified as Staph aureus and Staph simulans. Repeat blood cultures so far without growth. Continues on vancomycin. Discussed with him additional assessment with MRI head and spine. Additionally he has had prior surgery on his elbow and reattachment of fingers on the right hand, has a plate in his right proximal forearm and pins in his index and middle fingers of the right hand. He has not had any erythema, pain, swelling, drainage or other symptoms at all sites. Discussed potentially still imaging though sites given bacteremia of unexplained source. Discussed with him lumbar puncture. MRI of the head could not be obtained today, requested CT head with IV contrast, lumbar puncture. Reassess kidney function with risk of kidney injury. Additional consideration of NISHANT, although this would require sedation and he has been feeling worse today with some increase in CIWA score as well, had to resume his phenobarbital, for now we will pause on procedure requiring sedation as per discussion with him. Reviewed blood cultures, 4 out of 4 blood cultures positive for Staph aureus. Resistant to penicillin, but so far has been improving with Zosyn. Though today feeling worse. Vancomycin was discontinued. Risk of treatment failure. Stopped Zosyn, switched to ceftriaxone Reviewed CBC, CMP. Source of the bacteremia so far is unclear, he denies any IVDU, denies any skin infection, any recent tattoos. Discussed with sample case porter. Echocardiogram negative for infective endocarditis. CT back negative for discitis. (2) Alcohol intoxication: Worsening CIWA score, with residual alcohol withdrawal. Had to resume phenobarbital. Stop clonazepam. With concerns for delirium tremens which have now resolved. Monitor for risk of encephalopathy, respiratory depression with IV phenobarbital. Thiamine and folic acid. (3) Hypertriglyceridemia: Reviewed triglycerides, improving. Appreciate CT abdomen pelvis. Low concern for pancreatitis for now. Triglyceride levels normal now. Discontinue insulin drip. (4) Elevated liver enzymes: In setting of alcohol abuse. Slight improvement. Associated with hyperbilirubinemia. Appreciate LDH and GGT. Hepatitis panel negative. Appreciate gallbladder ultrasound for no gallstones. Given concerns for possible inflammation cannot rule out infection. Though clinically less likely. Check HIDA scan. (5) Suicidal ideation: Discussed with case management. Reviewed psychiatry note from today. 21-day hold has been canceled. Sitter at bedside. Psychiatry consulted. Plan to transfer to Neuropsych Unit once medically cleared. Currently on 96-hour hold. (6) Pancreatitis: In setting of alcohol abuse. Triglyceride levels elevated to more than 1200. Clear liquid diet. (7) Vomiting: Now resolved, but is having frontal abdominal/abdominal wall soreness/tenderness likely after dry heaving, vomiting close possibly pancreatitis. Reassess. In setting of pancreatitis. IV Protonix twice daily. Zofran as needed. (8) Delirium tremens: (9) Thrombocytopenia: Plan Dysuria: Obtain UA Mild generalized pruritus: calamine lotion Continue with home dose of Klonopin 1 mg p.o. every 8 hours as needed, trazodone 150 mg nightly along with venlafaxine to 25 mg every morning. Back pain: History of trauma in the past. Appreciate CT back results. Continue with gabapentin 300 mg twice daily, add tizanidine 4 mg every 8 hours as needed. OxyContin 10 mg twice daily and oxycodone every 6 hours as needed. Physical therapy. Full code Mechanical soft diet Protonix for PUD prophylaxis Lovenox for DVT prophylaxis. Attestations 2 Medical Necessity Statement*: Continue admission for assessment of management of staphylococcal bacteremia with possible endocarditis, meningitis, risk of distant septic embolization, continue IV antibiotics, additional assessment and consideration of NISHANT, antibiotic duration. Diagnoses Bacteremia due to Staphylococcus R78.81; B95.8 Alcohol intoxication F10.929 Hypertriglyceridemia E78.1 Elevated liver enzymes R74.8 Suicidal ideation R45.851 Pancreatitis K85.90 Vomiting R11.10 Delirium tremens F10.931 Thrombocytopenia D69.6
[2023-11-05] MEDS: lidocaine 5% Patch 1 PATCH TOPICAL (20:40)
[2023-11-05] MEDS: quetiapine 100 mg Tablet PO (20:43)
[2023-11-05] MEDS: cefTRIAXone 2,000 mg SDV 2000 MG IVP (20:44)
[2023-11-05] MEDS: trazodone 150 mg Tablet PO (21:16)
[2023-11-06] VITALS (13 sets, daily range): BP systolic 114–155; BP diastolic 71–96; PULSE 72–83; RESP 16–18; TEMP 36.4–37.2; O2SAT 90–94
[2023-11-06] MEDS: oxyCODONE 5 mg IR Tab/Cap PO ×2 (02:18→10:32)
[2023-11-06] MEDS: morphine 4 mg/mL SDV 1 mL 1 MG IVP ×2 (03:55→11:58)
[2023-11-06 05:58] LABS: Basophils # 0.1 10^3/uL (0.0-0.1); Basophils % 0.9 %; Eosinophils # 0.1 10^3/uL (0.0-0.8); Eosinophils % 1.5 %; Hematocrit 30.4 % (37-53); Lymphocytes # 1.3 10^3/uL (0.8-4.8); Lymphocytes % 15.8 %; Mean Corpuscular HGB Conc 32.9 g/dL (30-55); Mean Corpuscular Hemoglobin 32.9 pg (27-33); Mean Platelet Volume 10.3 fL (7.4-10.4); Monocytes # 1.6 10^3/uL (0.2-0.9); Monocytes % 20.4 %; Neutrophils # 4.39 10^3/uL (1.8-7.7); Neutrophils % 54.6 %; Nucleated Red Blood Cells # 0.1 /100WBC; Nucleated Red Blood Cells % 0.9 %; Platelet Count 200 10^3/cmm (157-399); Red Blood Count 3.04 10^6/uL (3.85-5.65); Red Cell Distribution Width 14.6 % (12.1-15.1); White Blood Count 8.04 10^3/uL (3.29-11.43)
[2023-11-06] MEDS: venlafaxine ER (24HR) 75 mg Capsule 225 MG PO (06:05)
[2023-11-06 06:17] LABS: Alanine Aminotransferase 81 U/L (0-41); Albumin Level 2.9 g/dL (3.5-5.2); Alkaline Phosphatase 168 U/L (40-130); Aspartate Amino Transferase 63 U/L (0-40); Blood Urea Nitrogen 5 mg/dL (6-20); Calcium 8.4 mg/dL (8.5-10.5); Carbon Dioxide 28 mmol/L (22-29); Chloride 103 mmol/L (98-107); Creatinine Clr Calc Pharmacy 122.9279; Globulin 3.1 g/dL (1.3-4.6); Glomerular Filtration Rate 80.1 mL/min (90-130); Glucose 86 mg/dL (65-115); Osmolality Calculated 287 mOsm/kg (285-295); Sodium 140 mmol/L (136-145); Total Bilirubin 0.6 mg/dL (0.15-1.2)
[2023-11-06 06:22] LABS: Anion Gap 13.1 (5-19); Potassium 4.1 mmol/L (3.5-5.1)
[2023-11-06 06:25] LABS: Slide Review Slide Review Perform
[2023-11-06] MEDS: multivitamin therapeutic Tablet 1 TAB PO (08:19)
[2023-11-06] MEDS: oxyCODONE 10 mg ER (12 HR) Tablet PO ×2 (08:19→18:30)
[2023-11-06] MEDS: gabapentin 300 mg Capsule PO ×2 (08:19→18:30)
[2023-11-06] MEDS: folic acid 1 mg Tablet PO (08:20)
[2023-11-06] MEDS: PHENobarbital 32.4 mg Tablet PO ×2 (08:20→18:30)
[2023-11-06] MEDS: thiamine 100 mg Tablet PO (08:20)
[2023-11-06] MEDS: metoprolol tartrate 25 mg Tablet 12.5 MG PO ×2 (08:20→20:24)
--- NOTE | 2023-11-06 08:37 | PC.NURSE ---
Patient's ankle monitor was removed by this nurse for MRI. This nurse got approval from Mimi garcia. Her number is [phone].
--- NOTE | 2023-11-06 09:30 | MR_ITS ---
WS: [id number] MRI THORACIC SPINE with and without contrast HISTORY: pain, bacteremia, assess for signs of infection COMPARISON: None available. TECHNIQUE: Multiplanar sequences are performed in sagittal and axial planes. MultiHance 20 cc IV. Normal thoracic alignment. No discitis or osteomyelitis. No cord compression. There may be a small amount of fluid in the posterior epidural space at the lower cervical and upper thoracic spine. There is some enhancement. This may be related to the venous plexus also. There is no mass effect. On the axial imaging this appears to be circumferential. Cannot confirm epidural absces s on this appearance. I suspect this is more likely related to the venous plexus. MR/MR thoracic spine wo/w [id number] IMPRESSION: 1. No discitis or osteomyelitis. 2. No definite epidural enhancement. There is a small amount of enhancement in the cervical thoracic epidural space but this may be a venous plexus. 3. Due to the multiple examinations obtained at the same time all MRI studies are somewhat compromised. If there is a focal area which becomes more apparent clinically that is concerning a dedicated MRI to that specific region may be of benefit. If focal concern becomes more apparent consider repeat imaging in prabhu t region only. Patient may be able to remain still for shorter period of time.
--- NOTE | 2023-11-06 09:30 | MR_ITS ---
WS: [id number] MRI CERVICAL SPINE with and without contrast HISTORY: pain, bacteremia, assess for signs of infection COMPARISON: None available. Technique: Multiplanar, multisequence noncontrast imaging of the cervical spine. Postcontrast evaluat ion, MultiHance 20 cc IV. MRI cervical spine is significantly limited by motion. Patient was unable to remain still for this ex amination. It would be difficult to exclude signal abnormality within the cord or epidural abscess. T here is CSF surrounding the cord throughout. There are small disc osteophyte complexes at C5-6 and C6 -7. No prevertebral edema is noted on the axial T2 sequence. The post contrast sequence limited by th e motion. On the postcontrast sequences there is a small amount of increased signal and possible enhancement berrios rrounding the upper thoracic cord. There is also increased enhancement prevertebral seen only on the postcontrast sequences. There is no corresponding abnormality on the noncontrast exam therefore I laurel pect this may be an artifact. MR/MR cervical spine wo/w [id number] IMPRESSION: 1. Significantly limited evaluation of the cervical spine due to motion. 2. No cord compression or large signal abnormality or area of enhancement. 3. There is a small amount of increased signal on the postcontrast imaging in the upper thoracic epidural space which will be further evaluated on the thorac ic MRI. This may be motion artifact.
--- NOTE | 2023-11-06 09:30 | MR_ITS ---
WS: [id number] MRI LUMBAR SPINE WITH AND WITHOUT CONTRAST HISTORY: pain, bacteremia, assess for signs of infection COMPARISON: None available. TECHNIQUE: Sagittal and axial multisequence imaging is submitted. MultiHance 20 mL postcontrast. Examination is significantly compromised by motion. Lumbar vertebral bodies are normally aligned. On the STIR sequence no marrow edema is identified. Disc spaces are mildly desiccated. Conus tapers at L 1-2. No cord compression. No epidural abscess or hematoma is identified. On the postcontrast imaging cannot confirm an epidural abscess or discitis or osteomyelitis. L1-L2: Normal. L2-L3: Diffuse disc bulging. L3-L4: Diffuse annular disc bulging with a central disc protrusion. Mild facet and ligamentum flavum arthritis. L4-L5: Central disc protrusion and disc bulging. Facet disease. Mild central and subarticular recess stenosis. L5-S1: RIGHT paracentral disc protrusion contacting and displacing the RIGHT S1 nerve root. Disc cont act also on the exiting LEFT L5 nerve root. Paravertebral structures are negative. MR/MR lumbar spine wo/w con [id number] IMPRESSION: 1. Study is compromised by motion artifact. Postcontrast imaging is limited. 2. No significant discitis or osteomyelitis identified. The epidural regions v lm difficult to evaluate due to the motion but no area of compression upon the thecal sac. 3. Disc protrusions at the L3-4, L4-5 and L5-S1. 4. Disc contact on the traversing RIGHT S1 nerve root and the exiting LEFT L5 nerve root.
--- NOTE | 2023-11-06 09:30 | MR_ITS ---
WS: [id number] MRI BRAIN WITH AND WITHOUT CONTRAST HISTORY: headache, bacteremia, assess for signs of infection COMPARISON: CT head 08/06/2023 TECHNIQUE: Multiplanar imaging performed through the brain with MultiHance 20 ml's IV. Limited sequences performed during numerous studies been performed at the same time. Study is comprom ised by motion and limited postcontrast evaluation. No acute infarcts are seen. Damon-white matter differentiation is well preserved. Mild small vessel is chemic disease. No significant amount of edema or subcortical effacement. No susceptibility artifacts or prior lacunar infarcts. Mild atrophy. Ventricles and extra-axial spaces are normal. Clivus and pituitary gland are normal. Visualized posterior fossa and brainstem are also normal. Very limited postcontrast evaluation but no enhancing masses are identified. No meningeal or dural en hancement is appreciated. No brain abscess. Dural venous sinuses are limited but no signal abnormality noted. Paranasal sinuses: Mild mucoperiosteal thickening LEFT maxillary sinus. Mastoid air cells are clear. Mastoid air cells: Normal. Calvarium and scalp: Normal. MR/MR head wo/w con [id number] IMPRESSION: 1. No acute infarct or hemorrhage. 2. There is no evidence for brain abscess or cerebritis. No meningeal enhancem ent. 3. Very mild atrophy and small vessel ischemic disease.
[2023-11-06] MEDS: pantoprazole 40 mg SDV IVP ×2 (09:44→18:29)
[2023-11-06] MEDS: cefTRIAXone 2,000 mg SDV 2000 MG IVP ×2 (09:45→20:25)
[2023-11-06 10:07] LABS: CSF Mononuclear # 0.001 10^3/uL (50-90); Mononuclear WBC CSF % 100 % (50-90); Polynuclear WBC CSF % 0 % (0-10); Red Blood Cell CSF 0 10^3/uL (0-0); White Blood Cell CSF 1 /uL (0-5)
[2023-11-06 10:12] LABS: Appearance CSF CLEAR (CLEAR); Color CSF COLORLESS (COLORLESS); Cyto Order Verification No Order
[2023-11-06 10:26] LABS: Glucose CSF 56 mg/dL (40-70); Total Protein CSF 27 mg/dL (15-45)
--- NOTE | 2023-11-06 14:39 | FL_ITS ---
WS: [id number] LUMBAR PUNCTURE UNDER FLUOROSCOPY: OBTAIN CSF FOR ANALYSIS HISTORY: headache, bacteremia COMPARISON: None available. FLUOROSCOPY TIME: 1min [id number] # of spot films: 1 Procedure, complications, and risk and benefits explained to the patient. Consent was obtained. Recen t laboratory work and medication are reviewed prior to procedure. Skin over the lumbar is cleansed with ChloraPrep and anesthetized with 1% buffered lidocaine. Access into the thecal sac is achieved. CSF is removed in a sterile manner and placed in the sterile tubes. Approximately 10 ml is removed without difficulty. CSF is clear. No complications are encountered. CSF this into the laboratory for analysis as requested. FL/FL guided lumbarpunc dx* [id number] IMPRESSION: Uncomplicated lumbar puncture for CSF.
[2023-11-06] MEDS: gadobenate dimeglumine 20 mL vial IV (17:24)
[2023-11-06] MEDS: lidocaine 5% Patch 1 PATCH TOPICAL (18:29)
--- NOTE | 2023-11-06 19:17 | P.PN_ITS ---
Vitals/I&O/Wt Last Vital Signs Temp 98.6 F 11/06/23 11:16 Pulse 79 11/06/23 16:00 Resp 18 11/06/23 18:30 BP 155/96 11/06/23 16:00 Pulse Ox 92 11/06/23 16:00 O2 Del Method Room Air 11/06/23 16:00 O2 Flow Rate 2 11/02/23 19:00 11/06/23 11/06/23 11/06/23 06:59 14:59 22:59 Intake Total 860 / 2870 480 / 480 Balance 860 / 720 480 / 480 Weight last 48 hrs Weight 111.175 kg Weight 113.489 kg Weight 108.862 kg Physical Exam 2 Const: COMMON NORMALS: patient oriented x3 and alert GENERAL APPEARANCE: c ooperative ORIENTATION/CONSCIOUSNESS: Yes awake HENMT: COMMON NORMALS: oropharynx normal Neck/C-Spine: COMMON NORMALS: no JVD Resp: COMMON NORMALS: normal respiratory effort and clear to auscultation bilaterally AUSCULTATION: clear to auscultation bilaterally Cardio: COMMON NORMALS: no JVD, regular rhythm, S1 normal heart sound present, S2 normal heart sound present and No murmurs present (Cardio) RHYTHM: regular rhythm HEART SOUNDS: S1 normal heart sound present and S2 normal heart sound present GI: COMMON NORMALS: Normal to inspection, nondistended, normoactive bowel sounds present, Soft to palpation and non-tender PALPATION: Yes Soft to palpation Extremity: COMMON NORMALS: no joint enlargement and no pedal edema Neuro: COMMON NORMALS: patient oriented x3 and moves all extremities S ENSORIUM/ORIENTATION: Yes alert Skin: COMMON NORMALS: no rashes or lesions noted GENERAL SKIN EXAM: no rashes or lesions noted OTHER: Extensive tattoos. No rash or lesions. No external lesion at the site of pain in the lower back. Old healing scratch med prox R calf. Urinary Catheter Management: Hurd: Cath Placed During This Visit: yes, but has since been removed by the nurse Reason for Continuing Indwelling Catheter: Decision to DC Catheter Urinary Catheter Date of Insertion: 10/30/23 Urinary Catheter Time of Insertion: 00:01 Date Urinary Catheter Removed: 11/02/23 Time Urinary Catheter Discontinued: 19:00 Data 11/06/23 05:49 11/06/23 05:49 Micro: Microbiology 11/06/23 09:30 Gram Stain - Final Cerebrospinal Fluid A&P Assessment and plan (1) Bacteremia due to Staphylococcus: Reviewed vitals, CBC, CMP, repeat blood culture, so far negative, he also underwent lumbar puncture, reviewed WBC, glucose, protein, Gram stain. Not suggestive of meningitis. He is still not feeling well. Abdomen is still sore although no longer having vomiting, no diarrhea. Still lower back pain. Awaiting assessment by MRI. Discussed with radiologist Today request if possible to arrange for transfer to [facility]. I called down to [place], they are currently at capacity, they took his information and are placing him on the wait list, although no ETA with regards to when an opening might become available. He is not sure where he may have acquired Staph simulans infection. He does not keep any farm animals. He does have several dogs. Reports had a scratch on his medial right calf which has pretty much healed up. Discussed with him additional consideration for workup prior to discharge would include NISHANT as well as imaging of the right elbow, right hand with hardware there given Staph simulans has a propensity to attach to foreign bodies with significant resistance to immune system. Reviewed HIV, negative. Pending arrangements for transfer to [facility]. Otherwise in case doing better in terms of alcohol withdrawal consider further arrangements for NISHANT. He was unable to have his lidocaine patch on his back today due to going for MRI. Morphine was not helping with pain, increase morphine dose as per discussion with him up to 2 mg IV. Source of the bacteremia so far is unclear, he denies any IVDU, denies any skin infection, any recent tattoos. Discussed with case management assistant. Echocardiogram negative for infective endocarditis. CT back negative for discitis. (2) Alcohol intoxication: Responding to resumption of phenobarbital monitor for risk of mental status change, respiratory depression. CIWA score appears to be improving. May be able to discontinue tomorrow if continues to do well. Worsening CIWA score, with residual alcohol withdrawal. Had to resume phenobarbital. With concerns for delirium tremens which have now resolved. Monitor for risk of encephalopathy, respiratory depression with IV phenobarbital. Thiamine and folic acid. (3) Hypertriglyceridemia: Reviewed triglycerides, improving. Appreciate CT abdomen pelvis. Low concern for pancreatitis for now. Triglyceride levels normal now. Discontinue insulin drip. (4) Elevated liver enzymes: In setting of alcohol abuse. Slight improvement. Associated with hyperbilirubinemia. Appreciate LDH and GGT. Hepatitis panel negative. Appreciate gallbladder ultrasound for no gallstones. Given concerns for possible inflammation cannot rule out infection. Though clinically less likely. Check HIDA scan. (5) Suicidal ideation: Discussed with case management. Reviewed psychiatry note from today. 21-day hold has been canceled. Sitter at bedside. Psychiatry consulted. Plan to transfer to Neuropsych Unit once medically cleared. Currently on 96-hour hold. (6) Pancreatitis: In setting of alcohol abuse. Triglyceride levels elevated to more than 1200. Clear liquid diet. (7) Vomiting: Now resolved, but is having frontal abdominal/abdominal wall soreness/tenderness likely after dry heaving, vomiting close possibly pancreatitis. Reassess. In setting of pancreatitis. IV Protonix twice daily. Zofran as needed. (8) Delirium tremens: (9) Thrombocytopenia: Plan Dysuria: Obtain UA Mild generalized pruritus: calamine lotion Continue with home dose of Klonopin 1 mg p.o. every 8 hours as needed, trazodone 150 mg nightly along with venlafaxine to 25 mg every morning. Back pain: History of trauma in the past. Appreciate CT back results. Continue with gabapentin 300 mg twice daily, add tizanidine 4 mg every 8 hours as needed. OxyContin 10 mg twice daily and oxycodone every 6 hours as needed. Physical therapy. Full code Mechanical soft diet Protonix for PUD prophylaxis Lovenox for DVT prophylaxis. Attestations 2 Medical Necessity Statement*: Continue admission for assessment of management of staphylococcal bacteremia with possible endocarditis, risk of distant septic embolization, continue IV antibiotics, additional assessment and consideration of NISHANT. and High MDM includes amount and/or complexity of data reviewed/ordered [ resulted lab(s)/test(s), ordered lab(s)/test(s) and other healthcare professional discussion] and described risk of complication, morbidity or mortality of management as documented Diagnoses Bacteremia due to Staphylococcus R78.81; B95.8 Alcohol intoxication F10.929 Hypertriglyceridemia E78.1 Elevated liver enzymes R74.8 Suicidal ideation R45.851 Pancreatitis K85.90 Vomiting R11.10 Delirium tremens F10.931 Thrombocytopenia D69.6
[2023-11-06] MEDS: trazodone 150 mg Tablet PO (20:23)
[2023-11-06] MEDS: quetiapine 100 mg Tablet PO (20:24)
[2023-11-06] MEDS: morphine 4 mg/mL SDV 1 mL 2 MG IVP (20:25)
[2023-11-07] VITALS (10 sets, daily range): BP systolic 108–130; BP diastolic 65–81; PULSE 71–84; RESP 14–20; TEMP 36.9–37.3; O2SAT 85–94
[2023-11-07] MEDS: venlafaxine ER (24HR) 75 mg Capsule 225 MG PO (05:15)
[2023-11-07 06:41] LABS: Basophils # 0.1 10^3/uL (0.0-0.1); Basophils % 0.7 %; Eosinophils # 0.1 10^3/uL (0.0-0.8); Eosinophils % 1.4 %; Hematocrit 31.4 % (37-53); Lymphocytes % 12.1 %; Mean Corpuscular HGB Conc 32.5 g/dL (30-55); Mean Corpuscular Hemoglobin 32.1 pg (27-33); Mean Corpuscular Volume 98.7 fl (82-101); Mean Platelet Volume 10.2 fL (7.4-10.4); Monocytes # 1.7 10^3/uL (0.2-0.9); Monocytes % 20.3 %; Neutrophils % 59.6 %; Nucleated Red Blood Cells # 0.1 /100WBC; Nucleated Red Blood Cells % 0.9 %; Platelet Count 323 10^3/cmm (157-399); Red Blood Count 3.18 10^6/uL (3.85-5.65); Red Cell Distribution Width 14.8 % (12.1-15.1); White Blood Count 8.54 10^3/uL (3.29-11.43)
[2023-11-07 06:57] LABS: Alanine Aminotransferase 68 U/L (0-41); Albumin Level 2.8 g/dL (3.5-5.2); Alkaline Phosphatase 166 U/L (40-130); Aspartate Amino Transferase 52 U/L (0-40); Blood Urea Nitrogen 5 mg/dL (6-20); Calcium 8.2 mg/dL (8.5-10.5); Carbon Dioxide 26 mmol/L (22-29); Chloride 103 mmol/L (98-107); Creatinine Clr Calc Pharmacy 136.1181; Globulin 3.2 g/dL (1.3-4.6); Glomerular Filtration Rate 90.4 mL/min (90-130); Glucose 79 mg/dL (65-115); Osmolality Calculated 284 mOsm/kg (285-295); Sodium 139 mmol/L (136-145); Total Bilirubin 0.5 mg/dL (0.15-1.2)
[2023-11-07 07:00] LABS: Anion Gap 14.3 (5-19); Potassium 4.3 mmol/L (3.5-5.1)
[2023-11-07] MEDS: cefTRIAXone 2,000 mg SDV 2000 MG IVP ×2 (08:19→21:41)
[2023-11-07] MEDS: pantoprazole 40 mg SDV IVP ×2 (08:20→17:18)
[2023-11-07 08:21] LABS: Slide Review Slide Review Perform
[2023-11-07] MEDS: oxyCODONE 10 mg ER (12 HR) Tablet PO ×2 (08:21→17:17)
[2023-11-07] MEDS: thiamine 100 mg Tablet PO (08:21)
[2023-11-07] MEDS: folic acid 1 mg Tablet PO (08:22)
[2023-11-07] MEDS: multivitamin therapeutic Tablet 1 TAB PO (08:22)
[2023-11-07] MEDS: metoprolol tartrate 25 mg Tablet 12.5 MG PO ×2 (08:22→21:44)
[2023-11-07] MEDS: PHENobarbital 32.4 mg Tablet PO ×2 (08:23→17:18)
[2023-11-07] MEDS: gabapentin 300 mg Capsule PO ×2 (08:23→17:17)
[2023-11-07] MEDS: morphine 4 mg/mL SDV 1 mL 2 MG IVP ×2 (09:18→17:19)
--- NOTE | 2023-11-07 13:26 | P.PN_ITS ---
Subjective 2 Subjective: He states is not feeling well, feels like he is having the flu. Has been having a headache. Vitals/I&O/Wt Last Vital Signs Temp 98.4 F 11/07/23 11:32 Pulse 76 11/07/23 11:32 Resp 19 H 11/07/23 11:32 BP 130/81 11/07/23 11:32 Pulse Ox 93 11/07/23 11:32 O2 Del Method Nasal Cannula 11/07/23 11:32 O2 Flow Rate 2 11/07/23 04:17 11/06/23 11/07/23 11/07/23 22:59 06:59 14:59 Intake Total 240 / 720 120 / 120 Balance 240 / 720 120 / 120 Weight last 48 hrs Weight 110.359 kg Weight 111.175 kg Physical Exam 2 Const: COMMON NORMALS: patient oriented x3 and alert GENERAL APPEARANCE: c ooperative ORIENTATION/CONSCIOUSNESS: Yes awake HENMT: COMMON NORMALS: oropharynx normal Neck/C-Spine: COMMON NORMALS: no JVD Resp: COMMON NORMALS: normal respiratory effort and clear to auscultation bilaterally AUSCULTATION: clear to auscultation bilaterally Cardio: COMMON NORMALS: no JVD, regular rhythm, S1 normal heart sound present, S2 normal heart sound present and No murmurs present (Cardio) RHYTHM: regular rhythm HEART SOUNDS: S1 normal heart sound present and S2 normal heart sound present GI: COMMON NORMALS: Normal to inspection, nondistended, normoactive bowel sounds present, Soft to palpation and non-tender PALPATION: Yes Soft to palpation Extremity: COMMON NORMALS: no joint enlargement and no pedal edema Neuro: COMMON NORMALS: patient oriented x3 and moves all extremities S ENSORIUM/ORIENTATION: Yes alert Skin: COMMON NORMALS: no rashes or lesions noted GENERAL SKIN EXAM: no rashes or lesions noted OTHER: Extensive tattoos. No rash or lesions. No external lesion at the site of pain in the lower back. Old healing scratch med prox R calf. Urinary Catheter Management: Hurd: Cath Placed During This Visit: yes, but has since been removed by the nurse Reason for Continuing Indwelling Catheter: Decision to DC Catheter Urinary Catheter Date of Insertion: 10/30/23 Urinary Catheter Time of Insertion: 00:01 Date Urinary Catheter Removed: 11/02/23 Time Urinary Catheter Discontinued: 19:00 Data 11/07/23 06:01 11/07/23 06:01 Micro: Microbiology 11/06/23 09:30 Gram Stain - Final Cerebrospinal Fluid CSF Culture - Preliminary A&P Assessment and plan (1) Bacteremia due to Staphylococcus: Not feeling well today, feeling like he is having the flu, also having a headache, possibly post LP. Given a dose of Toradol, recommended caffeine if he is able to tolerate. Reviewed vitals, CBC, CMP, repeat blood culture. Last night he did better in terms of CIWA score. He remains lucid. Has been having malaise. Discussed with him regarding pursuing NISHANT for assessment of possible endocarditis. Discussed with cardiology. Appreciate consultation. Checked with [facility], no bed opening yet. CSF culture without growth so far. Abdomen is still sore although no longer having vomiting, no diarrhea. Tenderness, however, with improvement. Still lower back pain. Awaiting assessment by MRI. Discussed with radiologist Today request if possible to arrange for transfer to [facility]. I called down to [facility], they are currently at capacity, they took his information and are placing him on the wait list, although no ETA with regards to when an opening might become available. He is not sure where he may have acquired Staph simulans infection. He does not keep any farm animals. He does have several dogs. Reports had a scratch on his medial right calf which has pretty much healed up. Discussed with him additional consideration for workup prior to discharge would include NISHANT as well as imaging of the right elbow, right hand with hardware there given Staph simulans has a propensity to attach to foreign bodies with significant resistance to immune system. Reviewed HIV, negative. Pending arrangements for transfer to [facility]. Otherwise in case doing better in terms of alcohol withdrawal consider further arrangements for NISHANT. He was unable to have his lidocaine patch on his back today due to going for MRI. Morphine was not helping with pain, increase morphine dose as per discussion with him up to 2 mg IV. Source of the bacteremia so far is unclear, he denies any IVDU, denies any skin infection, any recent tattoos. Discussed with manager case management. Echocardiogram negative for infective endocarditis. CT back negative for discitis. (2) Alcohol intoxication: With improvement overnight, although seems to be worse today. This is at least in part likely due to his other symptoms. Continuing on low-dose phenobarbital for now. Monitor for risk of mental status changes, respiratory depression. Responding to resumption of phenobarbital monitor for risk of mental status change, respiratory depression. CIWA score appears to be improving. May be able to discontinue tomorrow if continues to do well. Worsening CIWA score, with residual alcohol withdrawal. Had to resume phenobarbital. With concerns for delirium tremens which have now resolved. Monitor for risk of encephalopathy, respiratory depression with IV phenobarbital. Thiamine and folic acid. (3) Hypertriglyceridemia: Reviewed triglycerides, improving. Appreciate CT abdomen pelvis. Low concern for pancreatitis for now. Triglyceride levels normal now. Discontinue insulin drip. (4) Elevated liver enzymes: In setting of alcohol abuse. Slight improvement. Associated with hyperbilirubinemia. Appreciate LDH and GGT. Hepatitis panel negative. Appreciate gallbladder ultrasound for no gallstones. Given concerns for possible inflammation cannot rule out infection. Though clinically less likely. Check HIDA scan. (5) Suicidal ideation: Discussed with case management. Reviewed psychiatry note from today. Psychiatric hold has been canceled. He has been continuing treatment voluntarily. Sitter at bedside. (6) Pancreatitis: In setting of alcohol abuse. Triglyceride levels elevated to more than 1200. Clear liquid diet. (7) Vomiting: Now resolved, but is having frontal abdominal/abdominal wall soreness/tenderness likely after dry heaving, vomiting close possibly pancreatitis. Showing some slow improvement. Reassess. In setting of pancreatitis. IV Protonix twice daily. Zofran as needed. (8) Delirium tremens: (9) Thrombocytopenia: Plan Dysuria: Reviewed Repeat UA, unremarkable. Mild generalized pruritus: calamine lotion Continue with home dose of Klonopin 1 mg p.o. every 8 hours as needed, trazodone 150 mg nightly along with venlafaxine to 25 mg every morning. Back pain: History of trauma in the past. Appreciate CT back results. Continue with gabapentin 300 mg twice daily, add tizanidine 4 mg every 8 hours as needed. OxyContin 10 mg twice daily and oxycodone every 6 hours as needed. Physical therapy. Full code Mechanical soft diet Protonix for PUD prophylaxis Lovenox for DVT prophylaxis. Attestations 2 Medical Necessity Statement*: Continue admission for assessment of management of staphylococcal bacteremia with possible endocarditis, risk of distant septic embolization, continue IV antibiotics, additional assessment and consideration of NISHANT. Diagnoses Bacteremia due to Staphylococcus R78.81; B95.8 Alcohol intoxication F10.929 Hypertriglyceridemia E78.1 Elevated liver enzymes R74.8 Suicidal ideation R45.851 Pancreatitis K85.90 Vomiting R11.10 Delirium tremens F10.931 Thrombocytopenia D69.6
[2023-11-07] MEDS: acetaminophen 500 mg Tablet PO (14:21)
[2023-11-07] MEDS: ondansetron 2 mg/ML SDV 2 mL 4 MG IVP (15:12)
[2023-11-07 16:30] LABS: Adenovirus Not Detected (NOT DETECT); Chlamydia Pneumoniae Not Detected (NOT DETECT); Coronavirus 229E,HKU1,NL63,OC4 Not Detected (NOT DETECT); Human Metapneumovirus Not Detected (NOT DETECT); Human Rhinovirus/Enterovirus Not Detected (NOT DETECT); Influenza A Not Detected (NOT DETECT); Influenza A H1 Not Detected (NOT DETECT); Influenza A H1-2009 Not Detected (NOT DETECT); Influenza A H3 Not Detected (NOT DETECT); Influenza B Not Detected (NOT DETECT); Mycoplasma Pneumoniae Not Detected (NOT DETECT); Parainfluenza Virus Type 1 Not Detected (NOT DETECT); Parainfluenza Virus Type 2 Not Detected (NOT DETECT); Parainfluenza Virus Type 3 Not Detected (NOT DETECT); Parainfluenza Virus Type 4 Not Detected (NOT DETECT); Respiratory Syncytial Virus A Not Detected (NOT DETECT); Respiratory Syncytial Virus B Not Detected (NOT DETECT); SARS-COV-2 Not Detected (NOT DETECT)
[2023-11-07] MEDS: ketorolac 30 mg/mL INJ IVP (18:27)
--- NOTE | 2023-11-07 19:36 | P.CONIM_ITS ---
Providers/Reason For Consult 2 Consulting Physician/Specialty*: Toan Nova MD/ Cardiology Reason for Consult*: Transesophageal echocardiogram/rule out endocarditis Requesting Physician: Dr Bates Attending Physician: Aleks Bates Primary Care Provider: Murray Camacho III, DO History of Present Illness History of Present Illness Trevor Martin is a 47 year old male with past medical history of alcohol abuse presented to hospital with abdominal pain and suicidal ideation. He has Staph aureus bacteremia. Staph simulans also grew on cultures. Primary team requested to obtain transesophageal echocardiogram to rule out endocarditis has had no source of infection so far found. Review of Systems 2 Const: Denies: fever(s) Eyes: Denies: change in vision ENMT: Denies: throat pain Card: Denies: chest pain Resp: Denies: dyspnea GI: Reports: nausea Medications/Allergies Home Medications Medication Instructions Recorded Confirmed Last Taken Type clonazepam 1 mg tablet (Klonopin) 1 mg PO Q8H PRN anxiety #7 tabs 09/11/23 10/30/23 Unknown Rx trazodone 150 mg tablet 150 mg PO BEDTIME 09/11/23 10/30/23 10/29/23 History venlafaxine 225 mg tablet,extended 225 mg PO QAM 09/11/23 10/30/23 10/29/23 History release 24 hr Allergies Allergy/AdvReac Type Severity Reaction Status Date / Time atomoxetine [From Strattera] Allergy ADR-Shakine Verified 10/29/23 16:35 ss escitalopram [From Lexapro] Allergy Unknown Verified 10/29/23 16:35 Current Medications Generic Name Dose Route Start Last Admin Trade Name Freq PRN Reason Stop Dose Admin Acetaminophen 500 mg 10/31/23 23:00 11/07/23 14:21 Acetaminophen 500 Mg Tablet PO 500 mg Q4H PRN Administration fever Albuterol/Ipratropium 3 ml 10/29/23 22:33 11/02/23 09:00 Ipratropium-Albuterol 3 Ml Neb INHALATION 3 ml Q6H PRN Administration SHORTNESS OF BREATH Camphor/Menthol/Phenol 1 applic 10/31/23 15:35 11/03/23 01:24 Blistex Lip Oint 7 Gm Tube TOPICAL 1 applic PRN PRN Administration DRYNESS Ceftriaxone Sodium 2,000 mg 11/05/23 20:30 11/07/23 08:19 Ceftriaxone 2,000 Mg Sdv IVP 2,000 mg Q12H ERVIN Administration Protocol Enoxaparin Sodium 40 mg 10/30/23 09:00 11/05/23 09:13 Enoxaparin 40 Mg/0.4 Ml Syringe SUBCUT 40 mg DAILY ERVIN Administration Folic Acid 1 mg 10/30/23 09:00 11/07/23 08:22 Folic Acid 1 Mg Tablet PO 1 mg DAILY ERVIN Administration Gabapentin 300 mg 11/02/23 03:00 11/07/23 17:17 Gabapentin 300 Mg Capsule PO 300 mg BID ERVIN Administration Lidocaine 1 patch 11/05/23 21:00 11/07/23 08:18 Lidocaine 5% Patch TOPICAL Not Given [id number] [facility] Metoprolol Tartrate 12.5 mg 11/03/23 21:00 11/07/23 08:22 Metoprolol Tartrate 25 Mg Tablet PO 12.5 mg BID@0900,2100 [facility] Administration Morphine Sulfate 2 mg 11/06/23 12:26 11/07/23 17:19 Morphine 4 Mg/Ml Sdv 1 Ml IVP 2 mg Q8H PRN Administration SEVERE PAIN Multivitamins Therapeutic 1 tab 10/30/23 09:00 11/07/23 08:22 Multivitamin Therapeutic Tablet PO 1 tab DAILY [facility] Administration Ondansetron HCl 4 mg 10/29/23 22:33 11/07/23 15:12 Ondansetron 2 Mg/Ml Sdv 2 Ml IVP 4 mg Q6H PRN Administration NAUSEA AND VOMITING Oxycodone HCl 10 mg 11/03/23 09:00 11/07/23 17:17 Oxycodone 10 Mg Er (12 Hr) Tablet PO 10 mg BID [facility] Administration Oxycodone HCl 5 mg 11/03/23 10:29 11/06/23 10:32 Oxycodone 5 Mg Ir Tab/Cap PO 5 mg Q8H PRN Administration MODERATE PAIN Pantoprazole Sodium 40 mg 10/29/23 23:00 11/07/23 17:18 Pantoprazole 40 Mg Sdv IVP 40 mg BID ERVIN Administration Phenobarbital 32.4 mg 11/05/23 09:40 11/07/23 17:18 Phenobarbital 32.4 Mg Tablet PO 32.4 mg BID [facility] Administration Quetiapine Fumarate 100 mg 11/04/23 21:00 11/06/23 20:24 Quetiapine 100 Mg Tablet PO 100 mg BEDTIME ERVIN Administration Thiamine Mononitrate 100 mg 10/30/23 09:00 11/07/23 08:21 Thiamine 100 Mg Tablet PO 100 mg DAILY ERVIN Administration Tizanidine HCl 4 mg 11/03/23 07:53 11/04/23 10:08 Tizanidine 4 Mg Tablet PO 4 mg Q8H PRN Administration SPASMS Trazodone HCl 150 mg 11/04/23 21:00 11/06/23 20:23 Trazodone 150 Mg Tablet PO 150 mg BEDTIME ERVIN Administration Venlafaxine HCl 225 mg 10/31/23 06:00 11/07/23 05:15 Venlafaxine Er (24hr) 75 Mg Capsule PO 225 mg QAM ERVIN Administration PFSH Acute 2 PFSH: Medical History Alcohol abuse No significant past medical history Surgical History No significant past surgical history Vitals/I&O/Wt Last Vital Signs Temp 99.1 F 11/07/23 16:00 Pulse 80 11/07/23 16:00 Resp 16 11/07/23 17:17 BP 124/73 11/07/23 16:00 Pulse Ox 94 11/07/23 16:00 O2 Del Method Nasal Cannula 11/07/23 16:00 O2 Flow Rate 2 11/07/23 04:17 11/07/23 11/07/23 11/07/23 06:59 14:59 22:59 Intake Total 240 / 720 120 / 120 Balance 240 / 720 120 / 120 Weight last 48 hrs Weight 243 lb 4.8 oz Weight 245 lb 1.6 oz Physical Exam 2 Narrative: GENERAL: Patient is alert, awake and oriented x3. [] NECK: No jugular vein distension. [] HEENT: No cyanosis. No icterus. No pallor. [] HEART: Regular S1 and S2. No murmur, rub or gallop. [] LUNGS: Clear to auscultate bilaterally. [] CENTRAL NERVOUS SYSTEM: Grossly nonfocal. [] EXTREMITIES: Lower extremities with 1+ edema bilaterally. Urinary Catheter Management: Hurd: Cath Placed During This Visit: yes, but has since been removed by the nurse Reason for Continuing Indwelling Catheter: Decision to DC Catheter Urinary Catheter Date of Insertion: 10/30/23 Urinary Catheter Time of Insertion: 00:01 Date Urinary Catheter Removed: 11/02/23 Time Urinary Catheter Discontinued: 19:00 Data 11/08/23 04:37 11/08/23 04:37 Micro: Microbiology 11/06/23 09:30 Gram Stain - Final Cerebrospinal Fluid CSF Culture - Preliminary A&P Assessment and plan (1) Bacteremia due to Staphylococcus: Plan We wiill proceed with transesophageal echocardiogram to rule out endocarditis. Risks and benefits of procedure have been discussed with patient and family. They understand and want to proceed. N.p.o. past midnight. Thank you for involving us with care of this patient. Will continue to follow. Please call with questions. Consult Attestations 2 Medical Necessity Statement: Care expected to cross 2 midnights. Coding Level of Care Code Acute Code for [facility] Diagnoses Bacteremia due to Staphylococcus R78.81; B95.8
[2023-11-07] MEDS: quetiapine 100 mg Tablet PO (21:41)
[2023-11-07] MEDS: trazodone 150 mg Tablet PO (21:43)
[2023-11-07] MEDS: oxyCODONE 5 mg IR Tab/Cap PO (22:05)
[2023-11-07] MEDS: tizanidine 4 mg Tablet PO (22:05)
[2023-11-08] VITALS (22 sets, daily range): BP systolic 97–132; BP diastolic 65–89; PULSE 60–75; RESP 12–20; TEMP 36.4–37.1; O2SAT 90–98
[2023-11-08] MEDS: ketorolac 30 mg/mL INJ 15 MG IVP ×4 (00:30→18:57)
[2023-11-08 05:24] LABS: Basophils # 0.1 10^3/uL (0.0-0.1); Basophils % 0.7 %; Eosinophils # 0.2 10^3/uL (0.0-0.8); Eosinophils % 1.3 %; Hematocrit 31.8 % (37-53); Lymphocytes # 1.2 10^3/uL (0.8-4.8); Lymphocytes % 8.5 %; Mean Corpuscular HGB Conc 32.4 g/dL (30-55); Mean Corpuscular Hemoglobin 32.8 pg (27-33); Mean Corpuscular Volume 101.3 fl (82-101); Mean Platelet Volume 9.7 fL (7.4-10.4); Monocytes % 14.5 %; Neutrophils # 10.28 10^3/uL (1.8-7.7); Neutrophils % 73.2 %; Nucleated Red Blood Cells % 0.2 %; Platelet Count 362 10^3/cmm (157-399); Red Blood Count 3.14 10^6/uL (3.85-5.65); White Blood Count 14.06 10^3/uL (3.29-11.43)
[2023-11-08] MEDS: morphine 4 mg/mL SDV 1 mL 2 MG IVP ×3 (05:42→22:46)
[2023-11-08 05:45] LABS: Alanine Aminotransferase 60 U/L (0-41); Albumin Level 3.1 g/dL (3.5-5.2); Alkaline Phosphatase 166 U/L (40-130); Aspartate Amino Transferase 45 U/L (0-40); Blood Urea Nitrogen 9 mg/dL (6-20); Calcium 8.5 mg/dL (8.5-10.5); Carbon Dioxide 28 mmol/L (22-29); Chloride 98 mmol/L (98-107); Creatinine Clr Calc Pharmacy 111.3694; Globulin 3.2 g/dL (1.3-4.6); Glomerular Filtration Rate 71.8 mL/min (90-130); Glucose 81 mg/dL (65-115); Osmolality Calculated 280 mOsm/kg (285-295); Sodium 136 mmol/L (136-145); Total Bilirubin 0.6 mg/dL (0.15-1.2); Total Protein 6.3 g/dL (6.6-8.7)
[2023-11-08 05:51] LABS: Slide Review Slide Review Perform
[2023-11-08] MEDS: venlafaxine ER (24HR) 75 mg Capsule 225 MG PO (05:55)
[2023-11-08] MEDS: cefTRIAXone 2,000 mg SDV 2000 MG IVP ×2 (07:46→22:03)
[2023-11-08] MEDS: multivitamin therapeutic Tablet 1 TAB PO (07:47)
[2023-11-08] MEDS: gabapentin 300 mg Capsule PO ×2 (07:47→18:13)
[2023-11-08] MEDS: folic acid 1 mg Tablet PO (07:47)
[2023-11-08] MEDS: oxyCODONE 10 mg ER (12 HR) Tablet PO ×2 (07:47→18:13)
[2023-11-08] MEDS: thiamine 100 mg Tablet PO (07:47)
[2023-11-08] MEDS: metoprolol tartrate 25 mg Tablet 12.5 MG PO ×2 (07:48→22:02)
[2023-11-08] MEDS: PHENobarbital 32.4 mg Tablet PO ×2 (07:48→18:13)
[2023-11-08] MEDS: lidocaine 5% Patch 1 PATCH TOPICAL ×2 (07:48→22:49)
[2023-11-08] MEDS: pantoprazole 40 mg SDV IVP ×2 (07:49→18:13)
--- NOTE | 2023-11-08 08:20 | PC.NURSE ---
Pt arrives to ICU 1 for NISHANT. Primary nurse not available at this time. 1:1 sitter and mother present. Pt denies any needs at this time. States he has a minor headache. 20g IV noted in right wirst, flushes with ease.
--- NOTE | 2023-11-08 08:33 | ANES.PREANE2 ---
Pre-Anesthetic Assessment Height/Weight: Height 1.91 m Weight 109.951 kg Temp Pulse Resp BP Pulse Ox O2 Del Method O2 Flow Rate 98.7 F 70 16 128/81 97 Room Air 1 11/08/23 08:15 11/08/23 08:22 11/08/23 08:22 11/08/23 08:15 11/08/23 08:22 11/08/23 08:22 11/07/23 20:00 NISHANT Familial anesthetic complications: PONV w/ volatiles Was Beta Gabriel taken within 24 hours: N/A Was Clonidine taken within 24 hours: N/A Last intake: > 8 hrs Social Alcohol and Tobacco Exam alert, oriented x 3, clear to auscultation bilaterally and regular rate & rhythm GI pancreatitits Anesthetic Plan ASA status: 3 Anesthesia: MAC Risk of > 500 ml blood loss (7ml/kg in children): No Medications/Allergies Home Medications Medication Instructions Recorded Confirmed Last Taken Type clonazepam 1 mg tablet (Klonopin) 1 mg PO Q8H PRN anxiety #7 tabs 09/11/23 10/30/23 Unknown Rx trazodone 150 mg tablet 150 mg PO BEDTIME 09/11/23 10/30/23 10/29/23 History venlafaxine 225 mg tablet,extended 225 mg PO QAM 09/11/23 10/30/23 10/29/23 History release 24 hr Allergies Allergy/AdvReac Type Severity Reaction Status Date / Time atomoxetine [From Strattera] Allergy ADR-Shakine Verified 10/29/23 16:35 ss escitalopram [From Lexapro] Allergy Unknown Verified 10/29/23 16:35 Current Medications Generic Name Dose Route Start Last Admin Trade Name Freq PRN Reason Stop Dose Admin Acetaminophen 500 mg 10/31/23 23:00 11/07/23 14:21 Acetaminophen 500 Mg Tablet PO 500 mg Q4H PRN Administration fever Albuterol/Ipratropium 3 ml 10/29/23 22:33 11/02/23 09:00 Ipratropium-Albuterol 3 Ml Neb INHALATION 3 ml Q6H PRN Administration SHORTNESS OF BREATH Camphor/Menthol/Phenol 1 applic 10/31/23 15:35 11/03/23 01:24 Blistex Lip Oint 7 Gm Tube TOPICAL 1 applic PRN PRN Administration DRYNESS Ceftriaxone Sodium 2,000 mg 11/05/23 20:30 11/08/23 07:46 Ceftriaxone 2,000 Mg Sdv IVP 2,000 mg Q12H ERVIN Administration Protocol Enoxaparin Sodium 40 mg 10/30/23 09:00 11/05/23 09:13 Enoxaparin 40 Mg/0.4 Ml Syringe SUBCUT 40 mg DAILY ERVIN Administration Folic Acid 1 mg 10/30/23 09:00 11/08/23 07:47 Folic Acid 1 Mg Tablet PO 1 mg DAILY ERVIN Administration Gabapentin 300 mg 11/02/23 03:00 11/08/23 07:47 Gabapentin 300 Mg Capsule PO 300 mg BID ERVIN Administration Ketorolac Tromethamine 15 mg 11/08/23 05:10 11/08/23 05:53 Ketorolac 30 Mg/Ml Inj IVP 11/13/23 05:14 15 mg Q8H PRN Administration PAIN Lidocaine 1 patch 11/05/23 21:00 11/08/23 07:48 Lidocaine 5% Patch TOPICAL 1 patch [id number] ERVIN Administration Metoprolol Tartrate 12.5 mg 11/03/23 21:00 11/08/23 07:48 Metoprolol Tartrate 25 Mg Tablet PO 12.5 mg BID@0900,2100 ERVIN Administration Morphine Sulfate 2 mg 11/06/23 12:26 11/08/23 05:42 Morphine 4 Mg/Ml Sdv 1 Ml IVP 2 mg Q8H PRN Administration SEVERE PAIN Multivitamins Therapeutic 1 tab 10/30/23 09:00 11/08/23 07:47 Multivitamin Therapeutic Tablet PO 1 tab DAILY ERVIN Administration Ondansetron HCl 4 mg 10/29/23 22:33 11/07/23 15:12 Ondansetron 2 Mg/Ml Sdv 2 Ml IVP 4 mg Q6H PRN Administration NAUSEA AND VOMITING Oxycodone HCl 10 mg 11/03/23 09:00 11/08/23 07:47 Oxycodone 10 Mg Er (12 Hr) Tablet PO 10 mg BID ERVIN Administration Oxycodone HCl 5 mg 11/03/23 10:29 11/07/23 22:05 Oxycodone 5 Mg Ir Tab/Cap PO 5 mg Q8H PRN Administration MODERATE PAIN Pantoprazole Sodium 40 mg 10/29/23 23:00 11/08/23 07:49 Pantoprazole 40 Mg Sdv IVP 40 mg BID ERVIN Administration Phenobarbital 32.4 mg 11/05/23 09:40 11/08/23 07:48 Phenobarbital 32.4 Mg Tablet PO 32.4 mg BID ERVIN Administration Quetiapine Fumarate 100 mg 11/04/23 21:00 11/07/23 21:41 Quetiapine 100 Mg Tablet PO 100 mg BEDTIME ERVIN Administration Thiamine Mononitrate 100 mg 10/30/23 09:00 11/08/23 07:47 Thiamine 100 Mg Tablet PO 100 mg DAILY ERVIN Administration Tizanidine HCl 4 mg 11/03/23 07:53 11/07/23 22:05 Tizanidine 4 Mg Tablet PO 4 mg Q8H PRN Administration SPASMS Trazodone HCl 150 mg 11/04/23 21:00 11/07/23 21:43 Trazodone 150 Mg Tablet PO 150 mg BEDTIME ERVIN Administration Venlafaxine HCl 225 mg 10/31/23 06:00 11/08/23 05:55 Venlafaxine Er (24hr) 75 Mg Capsule PO 225 mg QAM ERVIN Administration [facility] Anesthesia Medical History (Updated 11/01/23 @ 14:03 by Price Sweeney MD) Alcohol abuse No significant past medical history Surgical History No significant past surgical history Data Anesthesia 11/08/23 04:37 11/08/23 04:37 Short CBC 11/07/23 11/08/23 Range/Units 06:01 04:37 WBC 8.54 14.06 H (3.29-11.43) 10^3/uL Hgb 10.20 L 10.30 L (11.27-16.99) g/dL Hct 31.4 L 31.8 L (37-53) % MCV 98.7 101.3 H (82-101) fl Plt Count 323 D 362 (157-399) 10^3/cmm Neut % (Auto) 59.6 73.2 % Neut # (Auto) 5.10 10.28 H (1.8-7.7) 10^3/uL BMP 11/07/23 11/08/23 06:01 04:37 Sodium 139 136 Potassium 4.3 4.0 Chloride 103 98 Carbon Dioxide 26 28 BUN 5 L 9 Creatinine 0.9 1.1 Glucose 79 81 Calcium 8.2 L 8.5 Liver Function 11/07/23 11/08/23 Range/Units 06:01 04:37 Total Bilirubin 0.5 0.6 (0.15-1.2) mg/dL AST 52 H 45 H (0-40) U/L ALT 68 H 60 H (0-41) U/L Alkaline Phosphatase 166 H 166 H (40-130) U/L Albumin 2.8 L 3.1 L (3.5-5.2) g/dL COVID Results 11/07/23 14:37 Coronavirus 229E (PCR) Not detected SARS-CoV-2 (PCR) Not detected Microbiology 11/03/23 04:01 Blood Culture - Final Blood NO GROWTH AFTER 5 DAYS 11/03/23 04:01 Blood Culture - Final Blood NO GROWTH AFTER 5 DAYS 11/06/23 09:30 Gram Stain - Final Cerebrospinal Fluid CSF Culture - Preliminary Cardiac Studies: Echocardiogram 11/02/23
--- NOTE | 2023-11-08 08:39 | USCV_ITS ---
Mario Trevor Age: 47 Gender: M : 1975 Exam Date: 11/08/2023 08:49 Ordering Phys: Toan Nova M.D ([email or web address]) Technologist: Dariela Thomas Exam Location: [facility] Indication: EVAL FOR ENDOCARDITIS BP: 6 / 3 HR: 250 Rhythm: Sinus Technical Quality: Adequate MEASUREMENTS (Male / Female) Normal Values Medications Per anesthesia team Complications None Proc. Components After anesthesia team sedated patient, we advanced NISHANT probe. FINDINGS Left Ventricle Left ventricle is normal in size. LV systolic function is normal with EF 55 to 60%. No regional wall motion of vegetation. Right Ventricle Normal in size and function Right Atrium Normal in size Left Atrium Normal in size LA Appendage No left atrial appendage thrombus seen IA Septum Grossly normal Mitral Valve Structurally normal mitral valve. Mild mitral regurgitation. No evidence of vegetation. Aortic Valve Structurally normal aortic valve. No vegetation seen. Tricuspid Valve Limited visualization however no vegetation seen. Pulmonic Valve Grossly normal Pericardium Normal Aorta Normal CONCLUSIONS LV systolic function is normal with EF of 55 to 60%. No left atrial appendage thrombus. No evidence of vegetation seen Mild mitral regurgitation Toan Nova MD (Electronically Signed) Final Date: 15 November 2023 15:40 S
--- NOTE | 2023-11-08 08:40 | W.PM.OPSUD ---
Surgery/Procedure H&P Update DATE OF PROCEDURE: November 08, 2023 DATE H&P PERFORMED: 11/07/23 H&P UPDATE INFORMATION: I have reviewed H&P completed within last 30 days, I have examined patient prior to procedure and No changes to prior documentation PREOP DIAGNOSIS: Staph bacteremia/rule out endocarditis PRIMARY INDICATION FOR PROCEDURE: Staph bacteremia/rule out endocarditis PLANNED PROCEDURE: Transesophageal echocardiogram Anesthesia team available for sedation
--- NOTE | 2023-11-08 08:56 | PC.NURSE ---
0839 time out for NISHANT performed. Dr. Nova and Dr. Gamez at bedside. Ultrasound at bedside. Risks and benefits explained to patient and family and agree to proceed.
--- NOTE | 2023-11-08 09:05 | ANE.PACU2 ---
Inpatient post-anesthesia follow up: Airway intact: Yes Vital signs: Temperature 98.1 F Pulse Rate 75 Respiratory Rate 20 Blood Pressure 132/89 Pulse Oximetry 97 Oxygen Delivery Me thod Nasal Cannula Oxygen Flow Rate 3 Fraction of Inspir ed Oxygen 40 Hydration adequate: Yes Nausea and vomiting: No Pain level: 1 Mental status: Baseline
--- NOTE | 2023-11-08 09:38 | PC.NURSE ---
Post procedure report called to Froylan Zacarias on [facility]. Pt transferred back to [facility]
--- NOTE | 2023-11-08 10:33 | P.PN_ITS ---
Subjective 2 Subjective: Patient does not have evidence of endocarditis on NISHANT. Vitals/I&O/Wt Last Vital Signs Temp 98.1 F 11/08/23 09:05 Pulse 72 11/08/23 09:30 Resp 16 11/08/23 09:30 BP 117/74 11/08/23 09:30 Pulse Ox 95 11/08/23 09:30 O2 Del Method Room Air 11/08/23 09:30 O2 Flow Rate 2 11/08/23 09:15 FiO2 40 11/08/23 08:30 11/07/23 11/08/23 11/08/23 22:59 06:59 14:59 Intake Total 480 / 600 105 / 105 Balance 480 / 600 105 / 105 Weight last 48 hrs Weight 242 lb 6.4 oz Weight 243 lb 4.8 oz Physical Exam 2 Narrative: GENERAL: Patient is alert, awake and oriented x3. [] NECK: No jugular vein distension. [] HEENT: No cyanosis. No icterus. No pallor. [] HEART: Regular S1 and S2. No murmur, rub or gallop. [] LUNGS: Clear to auscultate bilaterally. [] CENTRAL NERVOUS SYSTEM: Grossly nonfocal. [] EXTREMITIES: Lower extremities with 1+ edema bilaterally. Urinary Catheter Management: Hurd: Cath Placed During This Visit: yes, but has since been removed by the nurse Reason for Continuing Indwelling Catheter: Decision to DC Catheter Urinary Catheter Date of Insertion: 10/30/23 Urinary Catheter Time of Insertion: 00:01 Date Urinary Catheter Removed: 11/02/23 Time Urinary Catheter Discontinued: 19:00 Data 11/08/23 04:37 11/08/23 04:37 Micro: Microbiology 11/03/23 04:01 Blood Culture - Final Blood NO GROWTH AFTER 5 DAYS 11/03/23 04:01 Blood Culture - Final Blood NO GROWTH AFTER 5 DAYS 11/06/23 09:30 Gram Stain - Final Cerebrospinal Fluid CSF Culture - Preliminary A&P Assessment and plan (1) Bacteremia due to Staphylococcus: Plan Transesophageal echocardiogram performed. No evidence of endocarditis. Management per primary team. Will sign off. Attestations 2 Medical Necessity Statement*: Care expected to cross 2 midnights. Coding Level of Care Code Acute Code for [facility] Diagnoses Bacteremia due to Staphylococcus R78.81; B95.8
--- NOTE | 2023-11-08 12:04 | P.PN_ITS ---
Subjective 2 Subjective: She underwent uneventful NISHANT today. He is doing slightly better. He is not bothered by any pain or discomfort, swelling tenderness, redness or warmth in his right elbow or right hand. Vitals/I&O/Wt Last Vital Signs Temp 98.1 F 11/08/23 09:05 Pulse 72 11/08/23 09:30 Resp 16 11/08/23 09:30 BP 117/74 11/08/23 09:30 Pulse Ox 95 11/08/23 09:30 O2 Del Method Room Air 11/08/23 09:30 O2 Flow Rate 2 11/08/23 09:15 FiO2 40 11/08/23 08:30 11/07/23 11/08/23 11/08/23 22:59 06:59 14:59 Intake Total 480 / 600 505 / 505 Balance 480 / 600 505 / 505 Weight last 48 hrs Weight 109.951 kg Weight 110.359 kg Physical Exam 2 Const: COMMON NORMALS: patient oriented x3 and alert GENERAL APPEARANCE: c ooperative ORIENTATION/CONSCIOUSNESS: Yes awake HENMT: COMMON NORMALS: oropharynx normal Neck/C-Spine: COMMON NORMALS: no JVD Resp: COMMON NORMALS: normal respiratory effort and clear to auscultation bilaterally AUSCULTATION: clear to auscultation bilaterally Cardio: COMMON NORMALS: no JVD, regular rhythm, S1 normal heart sound present, S2 normal heart sound present and No murmurs present (Cardio) RHYTHM: regular rhythm HEART SOUNDS: S1 normal heart sound present and S2 normal heart sound present GI: COMMON NORMALS: Normal to inspection, nondistended, normoactive bowel sounds present, Soft to palpation and non-tender PALPATION: Yes Soft to palpation Extremity: COMMON NORMALS: no joint enlargement and no pedal edema Neuro: COMMON NORMALS: patient oriented x3 and moves all extremities S ENSORIUM/ORIENTATION: Yes alert Skin: COMMON NORMALS: no rashes or lesions noted GENERAL SKIN EXAM: no rashes or lesions noted OTHER: Extensive tattoos. No rash or lesions. No external lesion at the site of pain in the lower back. Old healing scratch med prox R calf. Urinary Catheter Management: Hurd: Cath Placed During This Visit: yes, but has since been removed by the nurse Reason for Continuing Indwelling Catheter: Decision to DC Catheter Urinary Catheter Date of Insertion: 07/24/24 Urinary Catheter Time of Insertion: 00:01 Date Urinary Catheter Removed: 11/02/23 Time Urinary Catheter Discontinued: 19:00 Data 11/08/23 04:37 11/08/23 04:37 Micro: Microbiology 11/03/23 04:01 Blood Culture - Final Blood NO GROWTH AFTER 5 DAYS 11/03/23 04:01 Blood Culture - Final Blood NO GROWTH AFTER 5 DAYS 11/06/23 09:30 Gram Stain - Final Cerebrospinal Fluid CSF Culture - Preliminary A&P Assessment and plan (1) Bacteremia due to Staphylococcus: Reviewed vitals, CBC, CMP, respiratory viral panel, NISHANT, discussed with production planning manager. He does have leukocytosis today 14,000. Afebrile. Mild transaminitis, AST 45, LT 60, alk phos 166. Respiratory viral panel negative. NISHANT without vegetations. Discussed with patient and his family. We discussed risk of septic embolization with Staph aureus, staph stimulants, additional area at risk would be his right elbow with prior plate there, as well as pains in his second and third digits in the right hand. He has not had erythema, swelling, tenderness there so far. Consideration may be given to additional MRI imaging of this area. Discussed at current time continuation of IV antibiotics. They request to try to transfer to continue care at [facility] or [place]. Called [facility], after about 8 phone calls to different departments with request for transfer could not reach anybody and being transferred to the extension which kept hanging up. Called [facility], speaking with local company flatbed truck driver there they will discuss with attending, awaiting callback. Calling back [facility] as well, still at capacity. Discussed with case packer and sealer. In case you are transferring across state lines that would be okay but the bondsman would have to be updated daily. CSF culture without growth so far. Abdomen is still sore although no longer having vomiting, no diarrhea. Tenderness, however, with improvement. Still lower back pain. Awaiting assessment by MRI. Discussed with radiologist Today request if possible to arrange for transfer to [facility]. I called down to [place], they are currently at capacity, they took his information and are placing him on the wait list, although no ETA with regards to when an opening might become available. He is not sure where he may have acquired Staph simulans infection. He does not keep any farm animals. He does have several dogs. Reports had a scratch on his medial right calf which has pretty much healed up. Discussed with him additional consideration for workup prior to discharge would include NISHANT as well as imaging of the right elbow, right hand with hardware there given Deborah lopes has a propensity to attach to foreign bodies with significant resistance to immune system. Reviewed HIV, negative. Pending arrangements for transfer to [facility]. Otherwise in case doing better in terms of alcohol withdrawal consider further arrangements for NISHANT. He was unable to have his lidocaine patch on his back today due to going for MRI. Morphine was not helping with pain, increase morphine dose as per discussion with him up to 2 mg IV. Source of the bacteremia so far is unclear, he denies any IVDU, denies any skin infection, any recent tattoos. Discussed with case packer and sealer. Echocardiogram negative for infective endocarditis. CT back negative for discitis. (2) Alcohol intoxication: Reviewed CIWA protocol, yesterday very high up to 19-20. Today is doing better, overnight down to 1, this morning so far zeros. Continue phenobarbital for today, if continues to do well will discontinue. He would benefit from rehabilitation after hospitalization as also discussed with the [place] hospital with transfer request. With improvement overnight, although seems to be worse today. This is at least in part likely due to his other symptoms. Continuing on low-dose phenobarbital for now. Monitor for risk of mental status changes, respiratory depression. Responding to resumption of phenobarbital monitor for risk of mental status change, respiratory depression. CIWA score appears to be improving. May be able to discontinue tomorrow if continues to do well. Worsening CIWA score, with residual alcohol withdrawal. Had to resume phenobarbital. With concerns for delirium tremens which have now resolved. Monitor for risk of encephalopathy, respiratory depression with IV phenobarbital. Thiamine and folic acid. (3) Hypertriglyceridemia: Reviewed triglycerides, improving. Appreciate CT abdomen pelvis. Low concern for pancreatitis for now. Triglyceride levels normal now. Discontinue insulin drip. (4) Elevated liver enzymes: In setting of alcohol abuse. Slight improvement. Associated with hyperbilirubinemia. Appreciate LDH and GGT. Hepatitis panel negative. Appreciate gallbladder ultrasound for no gallstones. Given concerns for possible inflammation cannot rule out infection. Though clinically less likely. Check HIDA scan. (5) Suicidal ideation: Discussed with case management. Reviewed psychiatry note from today. Psychiatric hold has been canceled. He has been continuing treatment voluntarily. Sitter at bedside. (6) Pancreatitis: In setting of alcohol abuse. Triglyceride levels elevated to more than 1200. Improved with treatment with insulin drip. Start fenofibrate (7) Vomiting: Now resolved, but is having frontal abdominal/abdominal wall soreness/tenderness likely after dry heaving, vomiting close possibly pancreatitis. Showing some slow improvement. Reassess. In setting of pancreatitis. IV Protonix twice daily. Zofran as needed. (8) Delirium tremens: (9) Thrombocytopenia: Plan Dysuria: Reviewed Repeat UA, unremarkable. Mild generalized pruritus: calamine lotion Mild proximal colitis: Incidentally noted on CT, so far without complaints. No diarrhea. Possible aspiration pneumonia: On presentation incidentally noted on imaging. So far here had resolved, was without leukocytosis, but WBC count increased to 14,000 today. Continue ceftriaxone, will reassess. Consider anaerobic coverage in case of worsening/lack of response. Continue with home dose of Klonopin 1 mg p.o. every 8 hours as needed, trazodone 150 mg nightly along with venlafaxine to 25 mg every morning. Back pain: History of trauma in the past. Appreciate CT back results. Continue with gabapentin 300 mg twice daily, add tizanidine 4 mg every 8 hours as needed. OxyContin 10 mg twice daily and oxycodone every 6 hours as needed. Physical therapy. Full code Mechanical soft diet Protonix for PUD prophylaxis Lovenox for DVT prophylaxis. Attestations 2 Medical Necessity Statement*: Continue admission for assessment management of Staph aureus and Staph simulans bacteremia, alcohol withdrawal, pancreatitis, pneumonia, hypertriglyceridemia, arrangements for transfer to OR facility for further management and subsequent rehabilitation. , High MDM includes amount and/or complexity of data reviewed/ordered [ resulted lab(s)/test(s), ordered lab(s)/test(s) and other healthcare professional discussion] and described risk of complication, morbidity or mortality of management as documented and High Time for a total of 60 minutes, includes reviewing past or interval history, examining/interviewing patient, placing orders, counseling patient/family/other support, discussing plan of care with staff, communicating with other healthcare providers, documenting encounter and coordinating care Diagnoses Bacteremia due to Staphylococcus R78.81; B95.8 Alcohol intoxication F10.929 Hypertriglyceridemia E78.1 Elevated liver enzymes R74.8 Suicidal ideation R45.851 Pancreatitis K85.90 Vomiting R11.10 Delirium tremens F10.931 Thrombocytopenia D69.6
[2023-11-08] MEDS: tizanidine 4 mg Tablet PO ×2 (13:57→22:45)
[2023-11-08] MEDS: oxyCODONE 5 mg IR Tab/Cap PO (13:57)
[2023-11-08] MEDS: fenofibrate 48 mg Tablet PO (13:57)
[2023-11-08] MEDS: quetiapine 100 mg Tablet PO (22:02)
[2023-11-08] MEDS: trazodone 150 mg Tablet PO (22:03)
[2023-11-08] MEDS: ondansetron 2 mg/ML SDV 2 mL 4 MG IVP (22:46)
[2023-11-08] MEDS: prochlorperazine 10 mg/2 mL Inj IVP (23:53)
[2023-11-09] VITALS (15 sets, daily range): BP systolic 104–154; BP diastolic 67–93; PULSE 60–80; RESP 16–18; TEMP 36.4–36.8; O2SAT 91–96
[2023-11-09] MEDS: oxyCODONE 5 mg IR Tab/Cap PO ×3 (00:02→21:54)
[2023-11-09 04:55] LABS: Basophils % 0.4 %; Eosinophils # 0.1 10^3/uL (0.0-0.8); Eosinophils % 0.9 %; Hematocrit 31.1 % (37-53); Lymphocytes # 1.2 10^3/uL (0.8-4.8); Lymphocytes % 11.8 %; Mean Corpuscular HGB Conc 32.8 g/dL (30-55); Mean Corpuscular Hemoglobin 32.8 pg (27-33); Mean Platelet Volume 9.2 fL (7.4-10.4); Monocytes # 1.3 10^3/uL (0.2-0.9); Monocytes % 12.5 %; Neutrophils # 7.47 10^3/uL (1.8-7.7); Neutrophils % 72.7 %; Nucleated Red Blood Cells % 0 %; Platelet Count 410 10^3/cmm (157-399); Red Blood Count 3.11 10^6/uL (3.85-5.65); Red Cell Distribution Width 14.9 % (12.1-15.1); White Blood Count 10.26 10^3/uL (3.29-11.43)
[2023-11-09 05:12] LABS: Alanine Aminotransferase 47 U/L (0-41); Albumin Level 2.9 g/dL (3.5-5.2); Alkaline Phosphatase 140 U/L (40-130); Anion Gap 12.1 (5-19); Aspartate Amino Transferase 35 U/L (0-40); Blood Urea Nitrogen 8 mg/dL (6-20); Calcium 8.5 mg/dL (8.5-10.5); Carbon Dioxide 27 mmol/L (22-29); Chloride 102 mmol/L (98-107); Creatinine Clr Calc Pharmacy 122.0847; Globulin 2.9 g/dL (1.3-4.6); Glomerular Filtration Rate 80.1 mL/min (90-130); Glucose 100 mg/dL (65-115); Osmolality Calculated 282 mOsm/kg (285-295); Potassium 4.1 mmol/L (3.5-5.1); Sodium 137 mmol/L (136-145); Total Bilirubin 0.4 mg/dL (0.15-1.2); Total Protein 5.8 g/dL (6.6-8.7)
[2023-11-09] MEDS: ketorolac 30 mg/mL INJ 15 MG IVP ×3 (05:44→21:51)
[2023-11-09] MEDS: tizanidine 4 mg Tablet PO ×2 (05:44→17:00)
[2023-11-09] MEDS: venlafaxine ER (24HR) 75 mg Capsule 225 MG PO (05:44)
[2023-11-09] MEDS: oxyCODONE 10 mg ER (12 HR) Tablet PO ×2 (08:45→17:00)
[2023-11-09] MEDS: multivitamin therapeutic Tablet 1 TAB PO (08:45)
[2023-11-09] MEDS: pantoprazole 40 mg SDV IVP ×2 (08:45→17:01)
[2023-11-09] MEDS: gabapentin 300 mg Capsule PO ×2 (08:45→17:00)
[2023-11-09] MEDS: cefTRIAXone 2,000 mg SDV 2000 MG IVP (08:45)
[2023-11-09] MEDS: thiamine 100 mg Tablet PO (08:46)
[2023-11-09] MEDS: folic acid 1 mg Tablet PO (08:46)
[2023-11-09] MEDS: metoprolol tartrate 25 mg Tablet 12.5 MG PO ×2 (08:46→21:54)
[2023-11-09] MEDS: fenofibrate 48 mg Tablet PO (08:46)
[2023-11-09] MEDS: lidocaine 5% Patch 1 PATCH TOPICAL ×2 (08:46→21:55)
[2023-11-09] MEDS: PHENobarbital 32.4 mg Tablet PO (08:47)
[2023-11-09] MEDS: terbinafine 1% Cream 15 gm 1 APPLIC TOPICAL ×2 (09:13→17:19)
--- NOTE | 2023-11-09 12:21 | P.PN_ITS ---
Subjective 2 Subjective: He is having a headache. Abdominal soreness has been gradually improving. Vitals/I&O/Wt Last Vital Signs Temp 98.1 F 11/09/23 07:28 Pulse 60 11/09/23 08:02 Resp 18 11/09/23 12:11 BP 115/70 11/09/23 07:28 Pulse Ox 93 11/09/23 08:02 O2 Del Method Room Air 11/09/23 08:02 O2 Flow Rate 2 11/08/23 09:15 FiO2 40 11/08/23 08:30 11/08/23 11/09/23 11/09/23 22:59 06:59 14:59 Intake Total 600 / 1105 700 / 1805 240 / 240 Output Total 450 / 450 Balance 600 / 1105 250 / 1355 240 / 240 Weight last 48 hrs Weight 109.543 kg Weight 109.951 kg Physical Exam 2 Const: COMMON NORMALS: patient oriented x3 and alert GENERAL APPEARANCE: c ooperative ORIENTATION/CONSCIOUSNESS: Yes awake HENMT: COMMON NORMALS: oropharynx normal Neck/C-Spine: COMMON NORMALS: no JVD Resp: COMMON NORMALS: normal respiratory effort and clear to auscultation bilaterally AUSCULTATION: clear to auscultation bilaterally Cardio: COMMON NORMALS: no JVD, regular rhythm, S1 normal heart sound present, S2 normal heart sound present and No murmurs present (Cardio) RHYTHM: regular rhythm HEART SOUNDS: S1 normal heart sound present and S2 normal heart sound present GI: COMMON NORMALS: Normal to inspection, nondistended, normoactive bowel sounds present, Soft to palpation and non-tender PALPATION: Yes Soft to palpation Extremity: COMMON NORMALS: no joint enlargement and no pedal edema Neuro: COMMON NORMALS: patient oriented x3 and moves all extremities S ENSORIUM/ORIENTATION: Yes alert Skin: COMMON NORMALS: no rashes or lesions noted GENERAL SKIN EXAM: no rashes or lesions noted OTHER: Extensive tattoos. No rash or lesions. No external lesion at the site of pain in the lower back. Old healing scratch med prox R calf. Urinary Catheter Management: Hurd: Cath Placed During This Visit: yes, but has since been removed by the nurse Reason for Continuing Indwelling Catheter: Decision to DC Catheter Urinary Catheter Date of Insertion: 10/30/23 Urinary Catheter Time of Insertion: 00:01 Date Urinary Catheter Removed: 11/02/23 Time Urinary Catheter Discontinued: 19:00 Data 11/09/23 04:49 11/09/23 04:49 Micro: Microbiology 11/06/23 09:30 Gram Stain - Final Cerebrospinal Fluid CSF Culture - Final A&P Assessment and plan (1) Bacteremia due to Staphylococcus: Reviewed repeat blood culture, reviewed CSF culture. Reviewed vitals, CBC, CMP. Afebrile. Leukocytosis today resolved. Mild transaminitis. Respiratory viral panel negative. NISHANT without vegetations. Yesterday spoke with [facility], who found his care appropriate for the condition. Infectious disease specialist there did recommend a 4-week course of antibiotic with cefazolin. Discussed with patient and his mother, he had been on Zosyn initially, her, organism is also showing resistance to penicillin, likely Zosyn should be effective, however, cannot tell for sure if she was still having symptoms at that time, was switched to ceftriaxone on 11/04. Would count 30 days from there, which would be until 12/02. Switched to cefazolin. We are also reaching out to [facility] on his request to see if there is bed availability to continue care and subsequently pursue inpatient rehabilitation for alcohol use disorder. Calling back [facility] as well, still at capacity. Will reach out again tomorrow. In case you are transferring across state lines that would be okay but the bondsman would have to be updated daily per discussion with case management. CSF culture without growth so far. Abdomen is still sore although no longer having vomiting, no diarrhea. Tenderness, however, with improvement. Still lower back pain. Awaiting assessment by MRI. Discussed with radiologist Today request if possible to arrange for transfer to [facility]. I called down to [place], they are currently at capacity, they took his information and are placing him on the wait list, although no ETA with regards to when an opening might become available. He is not sure where he may have acquired Staph simulans infection. He does not keep any farm animals. He does have several dogs. Reports had a scratch on his medial right calf which has pretty much healed up. Discussed with him additional consideration for workup prior to discharge would include NISHANT as well as imaging of the right elbow, right hand with hardware there given Staph simulans has a propensity to attach to foreign bodies with significant resistance to immune system. Reviewed HIV, negative. Pending arrangements for transfer to [facility]. Otherwise in case doing better in terms of alcohol withdrawal consider further arrangements for NISHANT. He was unable to have his lidocaine patch on his back today due to going for MRI. Morphine was not helping with pain, increase morphine dose as per discussion with him up to 2 mg IV. Source of the bacteremia so far is unclear, he denies any IVDU, denies any skin infection, any recent tattoos. Discussed with lead case manager. Echocardiogram negative for infective endocarditis. CT back negative for discitis. (2) Alcohol intoxication: Discussed with LT[facility], [facility] as above. They do not have possibility for inpatient rehab after hospitalization due to a long waiting list. [facility] is considering for transfer for further care and discussed with him patient desire and recommendation for inpatient rehab. [facility] per [facility] AOD will reopen on Saturday. Reviewed CIWA scores. Will stop phenobarbital. Discussed with psychiatrist. He would benefit from rehabilitation after hospitalization as also discussed with the [place] hospital with [place]. With improvement overnight, although seems to be worse today. This is at least in part likely due to his other symptoms. Continuing on low-dose phenobarbital for now. Monitor for risk of mental status changes, respiratory depression. Responding to resumption of phenobarbital monitor for risk of mental status change, respiratory depression. CIWA score appears to be improving. May be able to discontinue tomorrow if continues to do well. Worsening CIWA score, with residual alcohol withdrawal. Had to resume phenobarbital. With concerns for delirium tremens which have now resolved. Monitor for risk of encephalopathy, respiratory depression with IV phenobarbital. Thiamine and folic acid. (3) Hypertriglyceridemia: Reviewed triglycerides, improving. Appreciate CT abdomen pelvis. Low concern for pancreatitis for now. Triglyceride levels normal now. Discontinue insulin drip. (4) Elevated liver enzymes: In setting of alcohol abuse. Slight improvement. Associated with hyperbilirubinemia. Appreciate LDH and GGT. Hepatitis panel negative. Appreciate gallbladder ultrasound for no gallstones. Given concerns for possible inflammation cannot rule out infection. Though clinically less likely. Check HIDA scan. (5) Suicidal ideation: Discussed with case management. Reviewed psychiatry note from today. Psychiatric hold has been canceled. He has been continuing treatment voluntarily. Sitter at bedside. (6) Pancreatitis: Still requiring IV morphine. Recheck lipase. In setting of alcohol abuse. Triglyceride levels elevated to more than 1200. Improved with treatment with insulin drip. Start fenofibrate (7) Vomiting: Now resolved, but is having frontal abdominal/abdominal wall soreness/tenderness likely after dry heaving, vomiting close possibly pancreatitis. Showing some slow improvement. Reassess. In setting of pancreatitis. IV Protonix twice daily. Zofran as needed. (8) Delirium tremens: (9) Thrombocytopenia: Plan Dysuria: Reviewed Repeat UA, unremarkable. Mild generalized pruritus: calamine lotion Mild proximal colitis: Incidentally noted on CT, so far without complaints. No diarrhea. Possible aspiration pneumonia: On presentation incidentally noted on imaging. So far here had resolved, was without leukocytosis, but WBC count increased to 14,000. Today resolved. Continue antibiotic with cefazolin, will reassess. Consider anaerobic coverage in case of worsening/lack of response. Continue with home dose of Klonopin 1 mg p.o. every 8 hours as needed, trazodone 150 mg nightly along with venlafaxine to 25 mg every morning. Back pain: History of trauma in the past. Appreciate CT back results. Continue with gabapentin 300 mg twice daily, add tizanidine 4 mg every 8 hours as needed. OxyContin 10 mg twice daily and oxycodone every 6 hours as needed. Physical therapy. Full code Protonix for PUD prophylaxis Lovenox for DVT prophylaxis. Attestations 2 Medical Necessity Statement*: Continue admission for assessment management of Staph aureus and Staph simulans bacteremia, alcohol withdrawal, arrangements for transfer to [place] facility for further management and rehabilitation. and High MDM includes amount and/or complexity of data reviewed/ordered [ resulted lab(s)/test(s), ordered lab(s)/test(s) and other healthcare professional discussion] and described risk of complication, morbidity or mortality of management as documented Diagnoses Bacteremia due to Staphylococcus R78.81; B95.8 Alcohol intoxication F10.929 Hypertriglyceridemia E78.1 Elevated liver enzymes R74.8 Suicidal ideation R45.851 Pancreatitis K85.90 Vomiting R11.10 Delirium tremens F10.931 Thrombocytopenia D69.6
--- NOTE | 2023-11-09 13:07 | P.NPUPN_ITS ---
Subjective NPU 2 Subjective: 47-year-old male with alcohol dependence admitted initially to the ICU with significant alcohol use and lack of oral intake for several weeks. The patient reported no thoughts of hurting himself or others. He had continued to reiterate his desire to go to inpatient substance abuse treatment. The patient had informed the writer editor of this note that he had a warrant for his arrest sent out this morning despite hospital informing the the fire extinguisher repairer inspector that the patient was unable to be present in the court house for his trial scheduled for yesterday. The patient's trial was indeed rescheduled but despite this Warrant was issued without santos. Mental Status Exam 2 MSE Comments: This is a well-nourished well-developed white male in hospital scrubs with adequate grooming and limited eye contact. He appeared pale and at times appeared nauseous and sickly today. Multiple tattoos on exposed skin including neck area. No abnormal movements except for psychomotor retardation and mild tremulousness. He was friendly and cooperative with exam in moderate distress. Speech was improved in regards to rate and volume. Mood described as allright. Affect remained restricted. Thought process was linear and organized. Thought content: he had minimized suicidal ideation and homicidal ideation although acknowledging that his alcohol use was excessive. He did not appear to be responding to internal stimuli. Attention span appeared improved. Recent and remote memory appeared better. He is somewhat alert and oriented person, place and situation today. Insight was improving. Judgment was improving and impulse control appeared improved. Vitals/I&O/Wt Last Vital Signs Temp 98.1 F 11/09/23 07:28 Pulse 60 11/09/23 08:02 Resp 18 11/09/23 12:11 BP 115/70 11/09/23 07:28 Pulse Ox 93 11/09/23 08:02 O2 Del Method Room Air 11/09/23 08:02 O2 Flow Rate 2 11/08/23 09:15 FiO2 40 11/08/23 08:30 11/08/23 11/09/23 11/09/23 22:59 06:59 14:59 Intake Total 600 / 1105 700 / 1805 240 / 240 Output Total 450 / 450 Balance 600 / 1105 250 / 1355 240 / 240 Weight last 48 hrs Weight 109.543 kg Weight 109.951 kg Physical Exam 2 Urinary Catheter Management: Hurd: Cath Placed During This Visit: yes, but has since been removed by the nurse Reason for Continuing Indwelling Catheter: Decision to DC Catheter Urinary Catheter Date of Insertion: 10/30/23 Urinary Catheter Time of Insertion: 00:01 Date Urinary Catheter Removed: 11/02/23 Time Urinary Catheter Discontinued: 19:00 Data NPU 11/09/23 04:49 11/09/23 04:49 Micro: Microbiology 11/06/23 09:30 Gram Stain - Final Cerebrospinal Fluid CSF Culture - Final Microbiology 11/06/23 09:30 Cerebrospinal Fluid Gram Stain - Final 11/06/23 09:30 Cerebrospinal Fluid CSF Culture - Final A&P Assessment and plan (1) Alcohol intoxication: (2) Suicidal ideation: Plan This is a 47-year-old white male with a long history of alcohol use/addiction and depression and anxiety dealing with severe depression and heavy alcohol use. His condition has been exacerbated by significant personal and legal issues. He is currently in a very challenging time and is in need of help. 1. Continue medications, Continue seroquel 100mg at night for depression along with effexor xr 225mg daily. 2. Continue ciwa. 3. Continue current observation level. 4.? Transferred to the neuropsychiatric unit but may benefit from direct transfer to inpatient substance abuse treatment facility through [facility] in [facility] or [place]. Will ask for further input from social work team as to whether transfer is possible to facility on Saturday11/11/23. 5. Will follow. . Attestations NPU 2 Medical Necessity Statement*: N/A. Please see primary team note for medical necessity. Not needing acute psychiatric inpatient hospitalization at this time but may benefit from acute inpatient hospitalization for substance abuse particularly alcohol. Coding Level of Care Code Acute Code for Chg Fwd Diagnoses Alcohol intoxication F10.929 Suicidal ideation R45.851
[2023-11-09] MEDS: morphine 4 mg/mL SDV 1 mL 2 MG IVP ×2 (13:54→23:15)
[2023-11-09] MEDS: ondansetron 2 mg/ML SDV 2 mL 4 MG IVP (13:57)
[2023-11-09] MEDS: ceFAZolin 1,000 mg SDV 1000 MG IVP (18:20)
[2023-11-09] MEDS: quetiapine 100 mg Tablet PO (21:53)
[2023-11-09] MEDS: trazodone 150 mg Tablet PO (21:54)
[2023-11-10] VITALS (10 sets, daily range): BP systolic 112–137; BP diastolic 74–87; PULSE 66–82; RESP 16–18; TEMP 36.6–37; O2SAT 90–92
[2023-11-10] MEDS: ceFAZolin 1,000 mg SDV 1000 MG IVP ×2 (02:53→10:56)
[2023-11-10] MEDS: tizanidine 4 mg Tablet PO (02:53)
[2023-11-10 04:17] LABS: Basophils # 0.1 10^3/uL (0.0-0.1); Basophils % 0.6 %; Eosinophils # 0.1 10^3/uL (0.0-0.8); Eosinophils % 0.8 %; Hematocrit 33.7 % (37-53); Lymphocytes # 1.4 10^3/uL (0.8-4.8); Mean Corpuscular HGB Conc 31.5 g/dL (30-55); Mean Corpuscular Hemoglobin 31.8 pg (27-33); Mean Corpuscular Volume 101.2 fl (82-101); Mean Platelet Volume 9.8 fL (7.4-10.4); Monocytes # 0.9 10^3/uL (0.2-0.9); Monocytes % 10.2 %; Neutrophils # 5.89 10^3/uL (1.8-7.7); Nucleated Red Blood Cells % 0 %; Platelet Count 484 10^3/cmm (157-399); Red Blood Count 3.33 10^6/uL (3.85-5.65); Red Cell Distribution Width 14.8 % (12.1-15.1); White Blood Count 8.42 10^3/uL (3.29-11.43)
[2023-11-10 04:32] LABS: Albumin Level 2.9 g/dL (3.5-5.2); Alkaline Phosphatase 155 U/L (40-130); Blood Urea Nitrogen 7 mg/dL (6-20); Calcium 8.7 mg/dL (8.5-10.5); Carbon Dioxide 28 mmol/L (22-29); Chloride 102 mmol/L (98-107); Creatinine Clr Calc Pharmacy 124.0765; Globulin 3.4 g/dL (1.3-4.6); Glomerular Filtration Rate 80.1 mL/min (90-130); Glucose 104 mg/dL (65-115); Osmolality Calculated 286 mOsm/kg (285-295); Sodium 139 mmol/L (136-145); Total Bilirubin 0.5 mg/dL (0.15-1.2); Total Protein 6.3 g/dL (6.6-8.7)
[2023-11-10 04:42] LABS: Lipase 40 U/L (13-60)
[2023-11-10 04:56] LABS: Alanine Aminotransferase 42 U/L (0-41); Anion Gap 14.7 (5-19); Aspartate Amino Transferase 32 U/L (0-40); Potassium 4.7 mmol/L (3.5-5.1)
[2023-11-10] MEDS: ketorolac 30 mg/mL INJ 15 MG IVP (06:07)
[2023-11-10] MEDS: venlafaxine ER (24HR) 75 mg Capsule 225 MG PO (06:08)
[2023-11-10] MEDS: oxyCODONE 5 mg IR Tab/Cap PO ×2 (06:08→14:42)
[2023-11-10] MEDS: morphine 4 mg/mL SDV 1 mL 2 MG IVP ×2 (07:32→15:48)
[2023-11-10] MEDS: folic acid 1 mg Tablet PO (08:40)
[2023-11-10] MEDS: metoprolol tartrate 25 mg Tablet 12.5 MG PO (08:40)
[2023-11-10] MEDS: fenofibrate 48 mg Tablet PO (08:40)
[2023-11-10] MEDS: multivitamin therapeutic Tablet 1 TAB PO (08:40)
[2023-11-10] MEDS: thiamine 100 mg Tablet PO (08:40)
[2023-11-10] MEDS: oxyCODONE 10 mg ER (12 HR) Tablet PO (08:41)
[2023-11-10] MEDS: gabapentin 300 mg Capsule PO (08:41)
[2023-11-10] MEDS: pantoprazole 40 mg SDV IVP (08:41)
[2023-11-10] MEDS: terbinafine 1% Cream 15 gm 1 APPLIC TOPICAL (08:42)
[2023-11-10] MEDS: lidocaine 5% Patch 1 PATCH TOPICAL (09:54)
[2023-11-10] MEDS: ondansetron 2 mg/ML SDV 2 mL 4 MG IVP (13:06)
--- NOTE | 2023-11-10 13:17 | P.TS_ITS ---
Transfer Summary Providers Date of Admission: 10/29/23 21:22 Date of Discharge/Transfer: 11/10/23 Attending Provider at Admission: Darrius Bear MD Attending Provider at Transfer: Aleks Bates Primary Care Provider: Murray Camacho III, DO Transfer Plans: Anticipated date of transfer: 11/10/23 . Diagnoses at Discharge Discharge Diagnosis (1) Alcohol intoxication: Status: Acute (2) Suicidal ideation: Status: Acute Reason for Visit Reason for Visit 11 not eaten, very little water, Alcohol withdr. Hospital Course Hospital Course 47-year-old gentleman with reported history of benign pituitary tumor, alcohol use disorder, smoking, depression, legal issues, was admitted on 10/28 with suicidal ideation, abdominal pain, recurrent nausea vomiting, going into alcohol withdrawal, stopped drinking preceding Saturday. Was started on benzodiazepines per [facility] protocol, subsequently transition to phenobarbital, placed on 96-hour hold, evaluated by psychiatry. Lipase 175, CT abdomen pelvis with mild haziness about the pancreas. Nonspecific gallbladder distention. Alk phos with elevation 350, T. bili up to 3.2. AST 527, ALT 373. Gallbladder ultrasound with hepatic steatosis, no gallstones no CBD dilation. Suspected likely related to EtOH. Additionally with hypertriglyceridemia in addition to usual pancreatitis treatment received also treatment with insulin infusion. T riglycerides as high as 1245, down trended down to 251. Started on fenofibrate. Imaging followed up due to persistent abdominal pain, also with noted right greater than left lung base infiltrates with possible aspiration pneumonia. Urinary bladder suggestive of cystitis. Mild changes of sigmoid and rectum suggestive of possible mild proctocolitis. Was treated with antibiotics with Zosyn. Blood cultures obtained on 10/30 eventually positive for 4/4 bottles Staph aureus and 2/4 bottles Staph simulans. Without obvious source of entry, does not have any catheters, ports, other devices. Does have history of fracture in the right elbow with plates as well as history of reattachment of second and third digits of the right hand with pins. Has not had symptoms there so far. He did have headache, neck pain, lumbar spine pain. He managed with MRI head, C-spine, thoracic and lumbar spine. Small amount of enhancement in the cervical thoracic epidural space but may be a venous plexus. Some compromise of imaging due to motion artifact, but without obvious foci of infection. His ankle monitor had to be removed to allow for MRI study and this was approved by his nelli shontrini. Underwent lumbar puncture with 1 WBC, mononuclear. CSF culture negative. Repeat blood culture on 11/02 negative. He does have extensive tattoos but denies having any recent tattoos done in at least several years. He did have a scratch on the medial right calf, does have 2 dogs at home. Perhaps could have been a possible source of entry, although scratch has pretty much healed without any issues. He did undergo TTE and NISHANT without vegetation or perivalvular abscess noted. Right arm so far has not been imaged. So far the plan has been for 4 weeks of treatment with cefazolin. If evaluation with infectious disease possible may be beneficial to further determine need for additional workup of unclear source of bacteremia. He has also been evaluated and followed by psychiatry. He is 96-hour hold has been rescinded. He does want to pursue inpatient rehabilitation for alcohol use disorder after his hospitalization. He [facility] for further management and for arrangements for EtOH rehabilitation. He was currently accepted there today. Patient's bondsman is aware of possible transfer for treatment and rehabilitation but will need to be kept up to date per case management. Mimi with [facility]. Her number is [phone]. Physical Exam Const: COMMON NORMALS: patient oriented x3 and alert GENERAL APPEARANCE: cooperative ORIENTATION/CONSCIOUSNESS: Yes awake HENMT: COMMON NORMALS: oropharynx normal Neck/C-Spine: COMMON NORMALS: no JVD Resp: COMMON NORMALS: normal respiratory effort and clear to auscultation bilaterally AUSCULTATION: clear to auscultation bilaterally Cardio: COMMON NORMALS: no JVD, regular rhythm, S1 normal heart sound present, S2 normal heart sound present and No murmurs present (Cardio) RHYTHM: regular rhythm HEART SOUNDS: S1 normal heart sound present and S2 normal heart sound present GI: COMMON NORMALS: Normal to inspection, nondistended, normoactive bowel sounds present, Soft to palpation and non-tender PALPATION: Yes Soft to palpation Extremity: COMMON NORMALS: no joint enlargement and no pedal edema Neuro: COMMON NORMALS: patient oriented x3 and moves all extremities SENSORIUM/ORIENTATION: Yes alert Skin: COMMON NORMALS: no rashes or lesions noted GENERAL SKIN EXAM: no rashes or lesions noted OTHER: Extensive tattoos. No rash or lesions. No external lesion at the site of pain in the lower back. Old healing scratch med prox R calf. Urinary Catheter Management: Hurd: Cath Placed During This Visit: yes, but has since been removed by the nurse Reason for Continuing Indwelling Catheter: Decision to DC Catheter Urinary Catheter Date of Insertion: 10/30/23 Urinary Catheter Time of Insertion: 00:01 Date Urinary Catheter Removed: 11/02/23 Time Urinary Catheter Discontinued: 19:00 TS Data Studies Completed and Pending Pending at discharge Category Date Time Status Adenosine Deaminase CSF Routine Lab 11/05/23 14:44 Received Complete Blood Count w/Auto AM LABS Lab 11/11/23 04:00 Ordered Comprehensive Metabolic Panel AM LABS Lab 11/11/23 04:00 Ordered NISHANT [CV. echo transesophageal [id number]] Routine Ultrasound 11/08/23 08:39 Taken Completed Studies During Hospitalization Category Date Time Status CT abdomen pelvis w con* [id number] Routine Cat Scan 10/31/23 19:[address] abdomen pelvis w con* [id number] Stat Cat Scan 10/29/23 18:[address] head wo/w con [id number] Urgent Cat Scan 11/05/23 14:[address] lumbar spine w con [id number] Urgent Cat Scan 11/03/23 07:52 Completed FL guided lumbarpunc dx* [id number] Routine Exams 11/06/23 14:39 Completed XR chest 1V portable [id number] Routine Exams 10/31/23 13:01 Completed MR cervical spine wo/w [id number] Routine MRI 11/06/23 09:30 Completed MR head wo/w con [id number] Routine MRI 11/06/23 09:30 Completed MR lumbar spine wo/w con [id number] Routine MRI 11/06/23 09:30 Completed MR thoracic spine wo/w [id number] Routine MRI 11/06/23 09:30 Completed CV. echo complete* [id number] Routine Ultrasound 11/02/23 10:33 Completed US gall bladder [id number] Stat Ultrasound 10/29/23 19:57 Completed Laboratory Last Values WBC 8.42 10^3/uL (3.29-11.43) 11/10/23 03:02 RBC 3.33 10^6/uL (3.85-5.65) L 11/10/23 03:02 Hgb 10.60 g/dL (11.27-16.99) L 11/10/23 03:02 Hct 33.7 % (37-53) L 11/10/23 03:02 MCV 101.2 fl (82-101) H 11/10/23 03:02 MCH 31.8 pg (27-33) 11/10/23 03:02 MCHC 31.5 g/dL (30-55) 11/10/23 03:02 RDW 14.8 % (12.1-15.1) 11/10/23 03:02 Plt Count 484 10^3/cmm (157-399) H 11/10/23 03:02 MPV 9.8 fL (7.4-10.4) 11/10/23 03:02 Neut % (Auto) 70.0 % 11/10/23 03:02 Lymph % (Auto) 17.0 % 11/10/23 03:02 [place] % (Auto) 10.2 % 11/10/23 03:02 Eos % (Auto) 0.8 % 11/10/23 03:02 Baso % (Auto) 0.6 % 11/10/23 03:02 Neut # (Auto) 5.89 10^3/uL (1.8-7.7) 11/10/23 03:02 Lymph # (Auto) 1.4 10^3/uL (0.8-4.8) 11/10/23 03:02 [place] # (Auto) 0.9 10^3/uL (0.2-0.9) 11/10/23 03:02 Eos # (Auto) 0.1 10^3/uL (0.0-0.8) 11/10/23 03:02 Baso # (Auto) 0.1 10^3/uL (0.0-0.1) 11/10/23 03:02 Nucleated RBC % (auto) 0 % 11/10/23 03:02 Total Counted 100 (0-100) 11/05/23 11:02 Atypical Lymphs % 0.0 % (0-5) 11/05/23 11:02 Absolute Neutrophils 5.0 10^3/cmm (1.4-6.5) 11/05/23 11:02 Segmented Neutrophils 66 % 11/05/23 11:02 Abs Segm Neuts (Man) 4.9 10/cmm (1.6-7.1) 11/05/23 11:02 Band Neutrophils 1.0 % 11/05/23 11:02 Abs Band Neuts (Man) 0.1 10^3/cmm (0.0-1.2) 11/05/23 11:02 Absolute Lymphocytes 0.9 10^3/cmm (1.2-3.4) L 11/05/23 11:02 Lymphocytes (Manual) 12 % 11/05/23 11:02 Monocytes (Manual) 14.0 % 11/05/23 11:02 Absolute Monocytes 1.0 10^3/cmm (0.1-0.6) H 11/05/23 11:02 Eosinophils (Manual) 3 % 11/05/23 11:02 Absolute Eosinophils 0.2 10^3/cmm (0.0-0.7) 11/05/23 11:02 Basophils (Manual) 0.0 % 11/05/23 11:02 Absolute Basophils 0.0 10^3/cmm (0.0-0.2) 11/05/23 11:02 Metamyelocytes 3.0 % 11/05/23 11:02 Myelocytes 1.0 % 11/05/23 11:02 Nucleated RBCs 1.0 /100WBC (0-1) 11/05/23 11:02 Nucleated RBCs # 0.0 /100WBC 11/10/23 03:02 Platelet Estimate Normal (Normal) 11/05/23 11:02 Stomatocytes 1+ H 11/05/23 11:02 ESR 15 mm/hr (0-10) H 11/04/23 02:01 PT 14.50 SECONDS (12.1-14.9) 10/29/23 18:55 INR 1.09 (0.8-1.2) 10/29/23 18:55 Sodium 139 mmol/L (136-145) 11/10/23 03:02 Potassium 4.7 mmol/L (3.5-5.1) 11/10/23 03:02 Chloride 102 mmol/L (98-107) 11/10/23 03:02 Carbon Dioxide 28 mmol/L (22-29) 11/10/23 03:02 Anion Gap 14.7 (5-19) 11/10/23 03:02 BUN 7 mg/dL (6-20) 11/10/23 03:02 Creatinine 1.0 mg/dL (0.7-1.2) 11/10/23 03:02 GFR Calculation 80.1 mL/min (90-130) L 11/10/23 03:02 Glucose 104 mg/dL (65-115) 11/10/23 03:02 POC Glucose 101 mg/dL (70-110) 11/02/23 07:15 Estimat Average Glucose 108 10/30/23 05:25 Hemoglobin A1c 5.4 % (4.0-6.0) 10/30/23 05:25 Calculated Osmolality 286 mOsm/kg (285-295) 11/10/23 03:02 Calcium 8.7 mg/dL (8.5-10.5) 11/10/23 03:02 Phosphorus 3.3 mg/dL (2.5-4.5) 10/30/23 05:25 Magnesium 1.5 mg/dL (1.7-2.3) L 11/02/23 03:48 Iron 158 ug/dL (59-158) 10/30/23 05:25 TIBC 174.81926 mcg/dl 10/30/23 05:25 % Saturation 90.0 % (20-50) H 10/30/23 05:25 Unsat Iron Binding < 17 ug/dL (112-347) L 10/30/23 05:25 Total Bilirubin 0.5 mg/dL (0.15-1.2) 11/10/23 03:02 GGT 1083 U/L (8-61) H 10/31/23 04:39 AST 32 U/L (0-40) 11/10/23 03:02 ALT 42 U/L (0-41) H 11/10/23 03:02 Alkaline Phosphatase 155 U/L (40-130) H 11/10/23 03:02 Ammonia 32 umol/L (16-60) 10/29/23 18:55 Lactate Dehydrogenase 302 U/L (135-225) H 10/31/23 04:39 C-Reactive Protein 44.2 mg/L (0.0-4.9) H 11/04/23 02:01 Total Protein 6.3 g/dL (6.6-8.7) L 11/10/23 03:02 Albumin 2.9 g/dL (3.5-5.2) L 11/10/23 03:02 Globulin 3.4 g/dL (1.3-4.6) 11/10/23 03:02 Triglycerides 251 mg/dL (0-150) H 11/02/23 10:52 Cholesterol 156 mg/dL (0-200) 10/31/23 04:39 LDL Cholesterol Direct 11 mg/dL (0-100) 11/01/23 05:49 LDL Cholesterol, Calc Not Reportable 10/31/23 04:39 Total VLDL Cholesterol 249 mg/dL (0-30) H 10/31/23 04:39 HDL Cholesterol 9 mg/dL (60-100) L 10/31/23 04:39 Cholesterol/HDL Ratio 17.33 mg/dL (1.0-5.00) H 10/31/23 04:39 Lipase 40 U/L (13-60) 11/10/23 03:02 Vitamin B12 1749 pg/mL (232-1245) H 10/30/23 05:25 Folate 4.8 ng/mL (4.5-32.2) 10/31/23 04:39 TSH 1.58 uIU/mL (0.27-4.20) 10/30/23 05:25 Urine Color Yellow (Yellow) 11/04/23 14:48 Urine Appearance Clear (CLEAR) 11/04/23 14:48 Urine pH 7 (5-7) 11/04/23 14:48 Ur Specific [place] 1.015 (1.005-1.030) 11/04/23 14:48 Urine Protein Neg (Negative) 11/04/23 14:48 Urine Glucose (UA) Norm (Normal) 11/04/23 14:48 Urine Ketones Negative (Negative) 11/04/23 14:48 Urine Blood Neg (Negative) 11/04/23 14:48 Urine Nitrate Negative (Negative) 11/04/23 14:48 Urine Bilirubin Neg (Negative) 11/04/23 14:48 Urine Urobilinogen Norm mg/dL (Negative) 11/04/23 14:48 Ur Leukocyte Esterase Negative (Negative) 11/04/23 14:48 Urine RBC 5-10 /hpf (0-2) H 10/29/23 23:59 Urine WBC None /hpf (0-5) 10/29/23 23:59 Ur Squamous Epith Cells None /hpf (0-5) 10/29/23 23:59 Amorphous Sediment Not Reportable 10/29/23 23:59 Urine Bacteria None /hpf (NONE) 10/29/23 23:59 Urine Mucus Trace /hpf 10/29/23 23:59 CSF Appearance Clear (CLEAR) 11/06/23 09:30 CSF Color Colorless (COLORLESS) 11/06/23 09:30 CSF WBC 1 /uL (0-5) 11/06/23 09:30 CSF RBC 0 10^3/uL (0-0) 11/06/23 09:30 CSF Mononuclear # Auto 0.001 10^3/uL (50-90) L 11/06/23 09:30 CSF Mononuclear WBCs % 100 % (50-90) H 11/06/23 09:30 CSF Polynuclear WBCs # 0.000 10^3/uL (0-10) 11/06/23 09:30 CSF Polynuclear WBCs % 0 % (0-10) 11/06/23 09:30 CSF Glucose 56 mg/dL (40-70) 11/06/23 09:30 CSF Total Protein 27 mg/dL (15-45) 11/06/23 09:30 Salicylates < 0.3 mg/dL (3-10) L 10/29/23 17:24 Urine Opiates Screen Negative ng/mL (Negative) 10/29/23 23:59 Acetaminophen < 5.0 ug/mL (10-30) L 10/29/23 17:24 Ur Barbiturates Screen Negative ng/mL (Negative) 10/29/23 23:59 Ur Phencyclidine Scrn Negative ng/mL (Negative) 10/29/23 23:59 Ur Amphetamines Screen Negative ng/mL (Negative) 10/29/23 23:59 Phenobarbital 5.0 ug/mL (10-30) L 11/03/23 04:01 U Benzodiazepines Scrn Positive ng/mL (Negative) H 10/29/23 23:59 Urine Cocaine Screen Negative ng/mL (Negative) 10/29/23 23:59 U Marijuana (THC) Screen Negative ng/mL (Negative) 10/29/23 23:59 Ethyl Alcohol 397 mg/dL (0-10) H* 10/29/23 17:24 Adenovirus (PCR) Not detected (NOT DETECT) 11/07/23 14:37 C. pneumoniae DNA (PCR) Not detected (NOT DETECT) 11/07/23 14:37 Coronavirus 229E (PCR) Not detected (NOT DETECT) 11/07/23 14:37 Hepatitis A IgM Ab Non-reactive (Nonreactive) 10/29/23 18:55 Hep Bs Antigen Non-reactive (Nonreactive) 10/29/23 18:55 Hep Bs Antibody 622.5 (11.5-1000) 10/29/23 18:55 Hep B Core Total Ab Non-reactive (Nonreactive) 10/29/23 18:55 Hepatitis C Antibody Non-reactive (Nonreactive) 10/29/23 18:55 HIV 1&2 Ab & HIV 1 Ag Non-reactive (Non-Reactiv) 10/31/23 04:39 HIV 1&2 Antibody Non-reactive (Non-Reactiv) 10/31/23 04:39 Human Metapneumovir PCR Not detected (NOT DETECT) 11/07/23 14:37 Influenza A (H1) PCR Not detected (NOT DETECT) 11/07/23 14:37 Influ A (H1/09) PCR Not detected (NOT DETECT) 11/07/23 14:37 Influenza A (H3) PCR Not detected (NOT DETECT) 11/07/23 14:37 Influenza Type A (PCR) Not detected (NOT DETECT) 11/07/23 14:37 Influenza Type B (PCR) Not detected (NOT DETECT) 11/07/23 14:37 M. pneumoniae (PCR) Not detected (NOT DETECT) 11/07/23 14:37 Parainfluenza 1 (PCR) Not detected (NOT DETECT) 11/07/23 14:37 Parainfluenza 2 (PCR) Not detected (NOT DETECT) 11/07/23 14:37 Parainfluenza 3 (PCR) Not detected (NOT DETECT) 11/07/23 14:37 Parainfluenza 4 (PCR) Not detected (NOT DETECT) 11/07/23 14:37 RSV Type A (PCR) Not detected (NOT DETECT) 11/07/23 14:37 RSV Type B (PCR) Not detected (NOT DETECT) 11/07/23 14:37 Entero/Rhino (PCR) Not detected (NOT DETECT) 11/07/23 14:37 SARS-CoV-2 (PCR) Not detected (NOT DETECT) 11/07/23 14:37 MRSA (PCR) Not detected (NOT DETECTED) 11/01/23 13:30 Radiology Impressions Gallbladder Ultrasound 10/29/23 19:57 IMPRESSION: 1. Hepatic steatosis. 2. No gallstones. Chest X-Ray 10/31/23 13:01 IMPRESSION: No acute chest abnormality. Abdomen/Pelvis CT 10/31/23 19:26 IMPRESSION: 1. No definitive evidence of pancreatitis on this examination. If early in disease course, imaging findings dental lag behind laboratory findings. 2. Distended gallbladder with shaggy appearance of the wall suggestive of inflammation. Confirmation with right upper quadrant ultrasound should be performed. 3. Urinary bladder appearance suggest cystitis. Correlate clinically. 4. Mild changes of the sigmoid and rectum suggesting possible mild proctocolitis. 5. Rlqek-djfeqej-gasl-left lung base infiltrates, correlate with aspiration/infection. 6. Additional findings as above. Lumbar Spine CT 11/03/23 07:52 IMPRESSION: Chronic multilevel lumbar degenerative disc disease and lower lumbar facet DJD. There is currently no convincing evidence of acute lumbar discitis and no evidence of lumbar epidural abscess. Head CT 11/05/23 14:42 IMPRESSION: No acute intracranial abnormality. Cervical Spine MRI 11/06/23 09:30 IMPRESSION: 1. Significantly limited evaluation of the cervical spine due to motion. 2. No cord compression or large signal abnormality or area of enhancement. 3. There is a small amount of increased signal on the postcontrast imaging in the upper thoracic epidural space which will be further evaluated on the thoracic MRI. This may be motion artifact. Head MRI 11/06/23 09:30 IMPRESSION: 1. No acute infarct or hemorrhage. 2. There is no evidence for brain abscess or cerebritis. No meningeal enhancement. 3. Very mild atrophy and small vessel ischemic disease. Lumbar Spine MRI 11/06/23 09:30 IMPRESSION: 1. Study is compromised by motion artifact. Postcontrast imaging is limited. 2. No significant discitis or osteomyelitis identified. The epidural regions very difficult to evaluate due to the motion but no area of compression upon the thecal sac. 3. Disc protrusions at the L3-4, L4-5 and L5-S1. 4. Disc contact on the traversing RIGHT S1 nerve root and the exiting LEFT L5 nerve root. Thoracic Spine MRI 11/06/23 09:30 IMPRESSION: 1. No discitis or osteomyelitis. 2. No definite epidural enhancement. There is a small amount of enhancement in the cervical thoracic epidural space but this may be a venous plexus. 3. Due to the multiple examinations obtained at the same time all MRI studies are somewhat compromised. If there is a focal area which becomes more apparent clinically that is concerning a dedicated MRI to that specific region may be of benefit. If focal concern becomes more apparent consider repeat imaging in that region only. Patient may be able to remain still for shorter period of time. Lumbar Puncture Fluoroscopy 11/06/23 14:39 IMPRESSION: Uncomplicated lumbar puncture for CSF. Recent Clincial Data Last Vital Signs Temp 98.3 F 11/10/23 12:00 Pulse 80 11/10/23 12:00 Resp 18 11/10/23 12:00 BP 128/77 11/10/23 12:00 Pulse Ox 90 11/10/23 12:00 O2 Del Method Room Air 11/10/23 12:00 O2 Flow Rate 2 11/08/23 09:15 FiO2 40 11/08/23 08:30 Vital Signs Temp Pulse Resp BP Pulse Ox O2 Del Method 11/10/23 12:00 98.3 F 80 18 128/77 90 Room Air 11/10/23 08:41 16 11/10/23 08:39 72 16 91 Room Air 11/10/23 08:00 98.6 F 82 17 112/74 90 Room Air 11/10/23 07:32 16 11/10/23 06:08 16 92 11/10/23 03:43 97.8 F 66 16 130/82 Intake & Output/Weight 11/08/23 11/09/23 11/10/23 11/11/23 06:59 06:59 06:59 06:59 Intake Total 600 / 600 1805 / 1805 1200 / 1200 480 / 480 Output Total 450 / 450 Balance 600 / 600 1355 / 1355 1200 / 1200 480 / 480 Weight 109.951 kg 109.543 kg 113.398 kg Vitals Last Vital Signs Temp 98.3 F 11/10/23 12:00 Pulse 80 11/10/23 12:00 Resp 18 11/10/23 12:00 BP 128/77 11/10/23 12:00 Pulse Ox 90 11/10/23 12:00 O2 Del Method Room Air 11/10/23 12:00 O2 Flow Rate 2 11/08/23 09:15 FiO2 40 11/08/23 08:30 TS Medications Medications Acetaminophen (Acetaminophen 500 Mg Tablet) 500 mg PO Q4H PRN PRN Reason: fever Last Admin: 11/07/23 14:21 Dose: 500 mg Albuterol/Ipratropium (Ipratropium-Albuterol 3 Ml Neb) 3 ml INHALATION Q6H PRN PRN Reason: SHORTNESS OF BREATH Last Admin: 11/02/23 09:00 Dose: 3 ml Calamine (Calamine Lotion 177 Ml Btl) 1 applic TOPICAL BID PRN PRN Reason: ITCHING Last Admin: 11/08/23 18:18 Dose: 1 applic Camphor/Menthol/Phenol (Blistex Lip Oint 7 Gm Tube) 1 applic TOPICAL PRN PRN PRN Reason: DRYNESS Last Admin: 11/03/23 01:24 Dose: 1 applic Cefazolin Sodium (Cefazolin 1,000 Mg Sdv) 1,000 mg IVP Q8H [facility]; Protocol Last Admin: 11/10/23 10:56 Dose: 1,000 mg Enoxaparin Sodium (Enoxaparin 40 Mg/0.4 Ml Syringe) 40 mg SUBCUT DAILY [facility] Last Admin: 11/05/23 09:13 Dose: 40 mg Fenofibrate (Fenofibrate 48 Mg Tablet) 48 mg PO DAILY [facility] Last Admin: 11/10/23 08:40 Dose: 48 mg Folic Acid (Folic Acid 1 Mg Tablet) 1 mg PO DAILY [facility] Last Admin: 11/10/23 08:40 Dose: 1 mg Gabapentin (Gabapentin 300 Mg Capsule) 300 mg PO BID [facility] Last Admin: 11/10/23 08:41 Dose: 300 mg Ketorolac Tromethamine (Ketorolac 30 Mg/Ml Inj) 15 mg IVP Q8H PRN PRN Reason: PAIN Stop: 11/13/23 05:14 Last Admin: 11/10/23 06:07 Dose: 15 mg Lidocaine (Lidocaine 5% Patch) 1 patch TOPICAL [id number] [facility] Last Admin: 11/10/23 09:54 Dose: 1 patch Metoprolol Tartrate (Metoprolol Tartrate 25 Mg Tablet) 12.5 mg PO BID@0900,2100 [facility] Last Admin: 11/10/23 08:40 Dose: 12.5 mg Morphine Sulfate (Morphine 4 Mg/Ml Sdv 1 Ml) 1 mg IVP [employer] PRN PRN Reason: PAIN Morphine Sulfate (Morphine 4 Mg/Ml Sdv 1 Ml) 2 mg IVP Q8H PRN PRN Reason: SEVERE PAIN Last Admin: 11/10/23 07:32 Dose: 2 mg Multivitamins Therapeutic (Multivitamin Therapeutic Tablet) 1 tab PO DAILY [facility] Last Admin: 11/10/23 08:40 Dose: 1 tab Ondansetron HCl (Ondansetron 2 Mg/Ml Sdv 2 Ml) 4 mg IVP Q6H PRN PRN Reason: NAUSEA AND VOMITING Last Admin: 11/10/23 13:06 Dose: 4 mg Oxycodone HCl (Oxycodone 10 Mg Er (12 Hr) Tablet) 10 mg PO BID [facility] Last Admin: 11/10/23 08:41 Dose: 10 mg Oxycodone HCl (Oxycodone 5 Mg Ir Tab/Cap) 5 mg PO Q8H PRN PRN Reason: MODERATE PAIN Last Admin: 11/10/23 06:08 Dose: 5 mg Pantoprazole Sodium (Pantoprazole 40 Mg Sdv) 40 mg IVP BID [facility] Last Admin: 11/10/23 08:41 Dose: 40 mg Quetiapine Fumarate (Quetiapine 100 Mg Tablet) 100 mg PO BEDTIME [facility] Last Admin: 11/09/23 21:53 Dose: 100 mg Terbinafine HCl (Terbinafine 1% Cream 15 Gm) 1 applic TOPICAL BID [facility] Last Admin: 11/10/23 08:42 Dose: 1 applic Thiamine Mononitrate (Thiamine 100 Mg Tablet) 100 mg PO DAILY [facility] Last Admin: 11/10/23 08:40 Dose: 100 mg Tizanidine HCl (Tizanidine 4 Mg Tablet) 4 mg PO Q8H PRN PRN Reason: SPASMS Last Admin: 11/10/23 02:53 Dose: 4 mg Trazodone HCl (Trazodone 150 Mg Tablet) 150 mg PO BEDTIME [facility] Last Admin: 11/09/23 21:54 Dose: 150 mg Venlafaxine HCl (Venlafaxine Er (24hr) 75 Mg Capsule) 225 mg PO QAM [facility] Last Admin: 11/10/23 06:08 Dose: 225 mg Discontinued Medications Acetaminophen (Acetaminophen 500 Mg Tablet) 500 mg PO Q4H PRN PRN Reason: fever Last Admin: 10/31/23 04:47 Dose: 500 mg Hydrocodone Bitart/Acetaminophen (Hydrocodone-Acetaminophen 5-325 Mg Tablet) 1 tab PO Q6H PRN PRN Reason: MODERATE PAIN Last Admin: 11/03/23 05:39 Dose: 1 tab Ceftriaxone Sodium (Ceftriaxone 2,000 Mg Sdv) 2,000 mg IVP Q12H [facility]; Protocol Last Admin: 11/09/23 08:45 Dose: 2,000 mg Clonazepam (Clonazepam 1 Mg Tablet) 1 mg PO Q8H PRN PRN Reason: anxiety Last Admin: 11/04/23 10:09 Dose: 1 mg Clonazepam (Clonazepam 0.5 Mg Tablet) 1 mg PO ONCE ONE Stop: 10/30/23 13:01 Last Admin: 10/30/23 12:56 Dose: 1 mg Dexmedetomidine HCl (Dexmedetomidine 200 Mcg/2 Ml Inj) Confirm Administered Dose 200 mcg .ROUTE .STK-MED ONE Stop: 11/08/23 08:37 Gadobenate Dimeglumine (Gadobenate Dimeglumine 20 Ml Vial) 0 ml IV ONCE ONE Stop: 11/06/23 17:25 Last Admin: 11/06/23 17:24 Dose: 20 ml Glucagon (Glucagon 1 Mg/Ml Kit 1 Ml) 1 mg IM ONCE PRN; Protocol PRN Reason: Adult Acute Hypoglycemia Nursing Prot. Sodium Chloride (Sodium Chloride 0.9%) 1,000 mls @ 999 mls/hr IV .Q1H1M ONE Stop: 10/29/23 19:00 Last Infusion: 10/29/23 23:07 Dose: Infused Dextrose/Lactated Ringer's (Dextrose 5%-Lactated Ringers) 1,000 mls @ 100 mls/hr IV .Q10H [facility] Last Infusion: 10/31/23 14:43 Dose: Infused Dextrose/Sodium Chloride (Dextrose 5%-Sod Chloride 0.9%) 1,000 mls @ 75 mls/hr IV .[id number] [facility] Last Infusion: 10/31/23 20:30 Dose: Infused Sodium Chloride (Sodium Chloride 0.9% (100 Ml)) Confirm Administered Dose 100 m ls @ as directed .ROUTE .STK-MED ONE Stop: 10/30/23 19:51 Last Admin: 10/30/23 20:10 Dose: Not Given Dexmedetomidine/Sodium Chloride (Precedex) 400 mcg in 100 mls @ 0 mls/hr IV .Q0M [facility]; Protocol Last Titration: 11/02/23 19:00 Dose: Infused Dextrose (D5w) 500 mls @ 0 mls/hr IV ONCE PRN; Protocol PRN Reason: Adult Acute Hypoglycemia Prot Dextrose (D10w) 125 mls @ 750 mls/hr IV PRN PRN; Protocol PRN Reason: Adult Acute Hypoglycemia Nursing Protocol Dextrose (D10w) 250 mls @ 1,000 mls/hr IV PRN PRN; Protocol PRN Reason: Adult Acute Hypoglycemia Nursing Protocol Insulin Human Regular (Myxredlin 100 Unit/100 Ml Bag) 100 unit in 100 mls @ 0 mls/hr IV PROTOCOL ERVIN; Protocol Last Titration: 11/02/23 19:00 Dose: Infused Dextrose (D5w) 1,000 mls @ 200 mls/hr IV .Q5H [facility] Last Infusion: 10/31/23 20:30 Dose: Infused Acetaminophen (Acetaminophen) 1,000 mg in 100 mls @ 400 mls/hr IV ONCE ONE Stop: 10/31/23 19:44 Last Infusion: 10/31/23 19:19 Dose: Infused Piperacillin Sod/Tazobactam (Sod / Sodium Chloride) 50 mls @ 0 mls/hr [id number] ERVIN; Protocol Piperacillin Sod/Tazobactam (Sod 3.375 gm/ Sodium Chloride) 50 mls @ 12.5 mls/hr IV [facility]8H [facility] [facility] Last Admin: 11/08/23 11:25 Dose: Not Given Dextrose/Lactated Ringer's (Dextrose 5%-Lactated Ringers) 1,000 mls @ 150 mls/hr IV .[id number] [facility] Last Infusion: 11/02/23 19:00 Dose: Infused Potassium Chloride (K-Salvador Premix) 100 mls @ 50 mls/hr IV ONCE ERVIN Lidocaine HCl 5 ml/ Potassium (Chloride) 105 mls @ 52.5 mls/hr IV ONCE ONE Stop: 11/01/23 00:29 Last Infusion: 11/08/23 09:10 Dose: Infused Lidocaine HCl 5 ml/ Potassium (Chloride) 105 mls @ 52.5 mls/hr IV ONCE ONE Stop: 10/31/23 22:29 Last Infusion: 10/31/23 22:34 Dose: Infused Vancomycin/PEG/NADA/Lysine/Water (Vancocin) 2,000 mg in 400 mls @ 200 mls/hr IV ONCE ONE Stop: 11/01/23 15:59 Last Infusion: 11/08/23 11:23 Dose: Infused Vancomycin/PEG/NADA/Lysine/Water (Vancocin) 1,750 mg in 350 mls @ 233.333 mls/hr IV Q12H [facility] Last Infusion: 11/02/23 17:02 Dose: Infused Lidocaine HCl 5 ml/ Potassium (Chloride) 105 mls @ 26.25 mls/hr IV ONCE ONE Stop: 11/02/23 09:08 Last Infusion: 11/02/23 13:18 Dose: Infused Potassium Chloride/Sodium Chloride (Sodium Chlor 0.9% + Kcl 20 Meq) 20 meq in 1,000 mls @ 75 mls/hr IV .[id number] [facility] Last Infusion: 11/03/23 13:43 Dose: Infused Magnesium Sulfate (Magnesium Sulfate Premix) 2 gm in 50 mls @ 50 mls/hr IV ONCE ONE Stop: 11/02/23 12:13 Last Infusion: 11/02/23 13:18 Dose: Infused Lidocaine HCl (Xylocaine) Confirm Administered Dose 5 mls @ as directed .ROUTE .STK-MED ONE Stop: 11/08/23 08:35 Iohexol (Iohexol 350 Mg/Ml 500 Ml Btl (Per Ml)) 0 ml IV ONCE ONE Stop: 10/29/23 19:26 Last Admin: 10/29/23 19:27 Dose: 100 ml Iohexol (Iohexol 350 Mg/Ml 500 Ml Btl (Per Ml)) 0 ml IV ONCE ONE Stop: 11/01/23 02:11 Last Admin: 11/01/23 02:11 Dose: 100 ml Iohexol (Iohexol 350 Mg/Ml 500 Ml Btl (Per Ml)) 0 ml IV ONCE ONE Stop: 11/03/23 09:10 Last Admin: 11/03/23 09:09 Dose: 100 ml Iohexol (Iohexol 350 Mg/Ml 500 Ml Btl (Per Ml)) 0 ml IV ONCE ONE Stop: 11/05/23 17:37 Last Admin: 11/05/23 17:36 Dose: 100 ml Ketorolac Tromethamine (Ketorolac 30 Mg/Ml Inj) 30 mg IVP ONCE ONE Stop: 11/07/23 17:24 Last Admin: 11/07/23 18:27 Dose: 30 mg Ketorolac Tromethamine (Ketorolac 30 Mg/Ml Inj) 15 mg IVP ONCE ONE Stop: 11/07/23 23:25 Last Admin: 11/08/23 00:30 Dose: 15 mg Lorazepam (Lorazepam 2 Mg/Ml Inj 1 Ml) 2 mg IM ONCE ONE Stop: 10/29/23 16:46 Last Admin: 10/29/23 17:28 Dose: 2 mg Lorazepam (Lorazepam 2 Mg/Ml Inj 1 Ml) 2 mg IVP ONCE ONE Stop: 10/29/23 19:34 Last Admin: 10/29/23 19:46 Dose: 2 mg Lorazepam (Lorazepam 2 Mg Tablet) 2 mg PO Q4H PRN; Protocol PRN Reason: WITHDRAWAL Last Admin: 10/29/23 23:55 Dose: 2 mg Lorazepam (Lorazepam 2 Mg/Ml Inj 10 Ml Mdv) 2 mg IVP PRN PRN; Protocol PRN Reason: WITHDRAWAL Lorazepam (Lorazepam 2 Mg/Ml Inj 1 Ml) 2 mg IVP Q1H PRN PRN Reason: ANXIETY Last Admin: 10/30/23 03:06 Dose: 2 mg Lorazepam (Lorazepam 2 Mg/Ml Inj 1 Ml) 2 mg IM Q4H PRN; Protocol PRN Reason: ALCOHOL WITHDRAWAL Lorazepam (Lorazepam 2 Mg/Ml Inj 1 Ml) 2 mg IVP PRN PRN; Protocol PRN Reason: WITHDRAWAL Lorazepam (Lorazepam 2 Mg/Ml Inj 1 Ml) 2 mg IVP Q2H PRN PRN Reason: ANXIETY Last Admin: 10/31/23 18:35 Dose: 2 mg Lorazepam (Lorazepam 2 Mg/Ml Inj 1 Ml) 1 mg IVP Q8H ERVIN Last Admin: 11/01/23 10:11 Dose: 1 mg Lorazepam (Lorazepam 2 Mg/Ml Inj 1 Ml) 4 mg IVP ONCE ONE Stop: 10/31/23 19:01 Last Admin: 10/31/23 19:31 Dose: 4 mg Metoclopramide HCl (Metoclopramide 5 Mg/Ml Sdv 2 Ml) 5 mg IVP ONCE ONE Stop: 10/30/23 02:17 Last Admin: 10/30/23 02:36 Dose: 5 mg Metoprolol Tartrate (Metoprolol Tartrate 25 Mg Tablet) 25 mg PO BID@0900,2100 [facility] Last Admin: 10/31/23 08:19 Dose: 25 mg Metoprolol Tartrate (Metoprolol Tartrate 25 Mg Tablet) 25 mg PO BID@0900,2100 [facility] Last Admin: 11/03/23 09:39 Dose: 25 mg Morphine Sulfate (Morphine 4 Mg/Ml Sdv 1 Ml) 1 mg IVP Q6H PRN PRN Reason: SEVERE PAIN Last Admin: 11/03/23 09:15 Dose: 1 mg Morphine Sulfate (Morphine 4 Mg/Ml Sdv 1 Ml) 1 mg IVP Q8H PRN PRN Reason: SEVERE PAIN Last Admin: 11/06/23 11:58 Dose: 1 mg Multi-Ingredient Ointment (Eucerin Cream 113 Gm Jar) 1 applic TOPICAL PRN PRN PRN Reason: DRYNESS Multivitamins Therapeutic (Multivitamin Therapeutic Tablet) 1 tab PO ONCE ONE Stop: 10/29/23 18:07 Last Admin: 10/29/23 19:46 Dose: 1 tab Ondansetron HCl (Ondansetron 2 Mg/Ml Sdv 2 Ml) 4 mg IM ONCE ONE Stop: 10/29/23 17:51 Last Admin: 10/29/23 17:56 Dose: 4 mg Oxycodone HCl (Oxycodone 5 Mg Ir Tab/Cap) 10 mg PO ONCE ONE Stop: 11/02/23 19:53 Last Admin: 11/02/23 20:05 Dose: 10 mg Oxycodone HCl (Oxycodone 5 Mg Ir Tab/Cap) 5 mg PO Q6H PRN PRN Reason: MODERATE PAIN Phenobarbital (Phenobarbital 32.4 Mg Tablet) 32.4 mg PO BID [facility] Last Admin: 11/09/23 08:47 Dose: 32.4 mg Phenobarbital Sodium (Phenobarbital 130 Mg/Ml Sdv 1 Ml) 130 mg IVP ONCE ONE Stop: 10/31/23 19:01 Last Admin: 10/31/23 19:04 Dose: 130 mg Phenobarbital Sodium (Phenobarbital 130 Mg/Ml Sdv 1 Ml) 60 mg IVP Q12H [facility] Stop: 11/02/23 23:59 Last Admin: 11/02/23 17:47 Dose: 60 mg Phenobarbital Sodium (Phenobarbital 130 Mg/Ml Sdv 1 Ml) 30 mg IVP Q12H ERVIN Stop: 11/05/23 04:01 Last Admin: 11/05/23 04:07 Dose: 30 mg Potassium Chloride (Potassium Chloride Er 20 Meq Tablet) 80 meq PO ONCE ONE Stop: 11/02/23 11:13 Last Admin: 11/02/23 11:57 Dose: 80 meq Prochlorperazine Edisylate (Prochlorperazine 10 Mg/2 Ml Inj) 10 mg IVP ONCE ONE Stop: 11/08/23 22:42 Last Admin: 11/08/23 23:53 Dose: 10 mg Propofol (Propofol 10 Mg/Ml Sdv 20 Ml) Confirm Administered Dose 200 mg .ROUTE .STK-MED ONE Stop: 11/08/23 08:35 Propofol (Propofol 10 Mg/Ml Sdv 20 Ml) Confirm Administered Dose 200 mg .ROUTE .STK-MED ONE Stop: 11/08/23 09:06 Thiamine HCl (Thiamine 100 Mg/Ml Sdv) 100 mg IM ONCE ONE Stop: 10/29/23 16:47 Last Admin: 10/29/23 17:28 Dose: 100 mg Thiamine HCl (Thiamine 100 Mg/Ml Sdv) 100 mg IM ONCE ONE Stop: 10/29/23 22:34 Last Admin: 10/29/23 23:17 Dose: 100 mg Trazodone HCl (Trazodone 150 Mg Tablet) 150 mg PO BEDTIME [facility] Last Admin: 11/03/23 20:05 Dose: 150 mg Allergies atomoxetine [From Strattera] Allergy (Verified 10/29/23 16:35) ADR-Shakiness escitalopram [From Lexapro] Allergy (Verified 10/29/23 16:35) Unknown Home Medications clonazepam 1 mg tablet (Klonopin) 1 mg PO Q8H PRN anxiety #7 tabs 09/11/23 [Rx Confirmed 10/30/23] trazodone 150 mg tablet 150 mg PO BEDTIME 09/11/23 [History Confirmed 10/30/23] venlafaxine 225 mg tablet,extended release 24 hr 225 mg PO QAM 09/11/23 [History Confirmed 10/30/23] Discharge Plan Discharge Patient Disposition: Xfer Short-Term Hosp Condition: Stable Prescriptions: No Action trazodone 150 mg Tablet 150 mg PO BEDTIME venlafaxine 225 mg Tablet Extended Release 24hr 225 mg PO QAM clonazepam [Klonopin] 1 mg tablet 1 mg PO Q8H PRN (Reason: anxiety) Qty: 7 0RF Referrals: Murray Camacho III, DO [Primary Care Provider] - Patient Instructions: Opioid Safety Transfer Attestations Time Spent in Transfer Care: greater than 30 min Quality Metrics Clinical Quality Measures [ No reported AMI, CVA or VTE this stay] Coding Level of Care Code 49622 Total time (in minutes) for Discharge: 55 Diagnoses Alcohol intoxication F10.929 Suicidal ideation R45.851
--- NOTE | 2023-11-10 19:14 | PC.NURSE ---
1238- Report called to [facility] in [place], [place]. DALIA Tesfaye took report on pt, all questions answered. Stated would call when pt left facility enroute to her. 1730- Pt transported via stretcher with EMS from pt room with mother and all belongings. All questions and concerns addressed at this time as well. Call made to [facility] to notify Mera of pt departure.
[2023-11-12 09:05] LABS: Adenosine Deaminase CSF 0.5 U/L (<7.0)
== END 2023-11-10 17:30 | disposition short-term general hospital (02) | DRG 439 ==
LOC: ER 21:06 → MEDSURG 21:22 → ICU 10-30 10:48 → MEDSURG 11-03 13:47 → ICU 11-08 08:19 → MEDSURG 11-08 10:25
PROVIDERS: Student in an Organized Health Care Education/Training Program; Admitting Provider Internal Medicine; Emergency Provider Emergency Medicine; PCP Family Medicine; Visit Provider Internal Medicine
DX: K85.20 Alcohol induced acute pancreatitis without necrosis or infection (principal); F10.131 Alcohol abuse with withdrawal delirium; R45.851 Suicidal ideations; Z16.11 Resistance to penicillins; F10.129 Alcohol abuse with intoxication, unspecified; Y90.9 Presence of alcohol in blood, level not specified; Z11.52 Encounter for screening for COVID-19; F17.210 Nicotine dependence, cigarettes, uncomplicated; B95.61 Methicillin susceptible Staphylococcus aureus infection as the cause of diseases classified elsewhere; D69.6 Thrombocytopenia, unspecified; L29.9 Pruritus, unspecified; N30.90 Cystitis, unspecified without hematuria; Z63.9 Problem related to primary support group, unspecified
CPT/HCPCS: 36415; 36416; 51702; 62328; 70470; 70553; 71045; 72132; 72156; 72157; 72158; 74177; 76705; 80048; 80053; 80061; 80184; 80306; 80307; 80503; 81001; 81003; 82140; 82607; 82746; 82945; 82962; 82977; 83036; 83540; 83550; 83615; 83690; 83721; 83735; 84100; 84132; 84157; 84311; 84443; 84478; 85007; 85025; 85610; 85651; 86140; 86705; 86706; 86709; 86803; 87040; 87070; 87075; 87077; 87150; 87186; 87205; 87340; 87486; 87581; 87633; 87641; 87806; 89050; 93306; 93312; 93320; 93325; 94640; 94660; 96372; 96374; 96376; 97116; 97161; 99285; A9577; J0131; J0690; J0696; J0780; J1650; J1885; J2060; J2270; J2405; J2470; J2543; J2560; J2704; J2765; J3372; J3411; J3475; J3480; J7030; J7042; J7070; J7121; Q9967

== ENCOUNTER 2024-04-01 16:42 | Emergency (ER) | payer OTHER, SELFPAY ==
[2024-04-01 16:46] VITALS: BP 168/108; PULSE 106; RESP 17; TEMP 37.3; O2SAT 98; BMI 31.2
--- NOTE | 2024-04-01 16:58 | W.ED.NECK ---
HPI - Neck Pain/Injury General: Chief Complaint: Neck Pain/Injury Stated Complaint: rt ankle inj Time Seen by Provider: 04/01/24 16:44 Source: patient Mode of arrival: ambulatory Limitations: no limitations History of Present Illness: 48-year-old male states he was moving a lot of heavy furniture a few days ago he states that since then he has been having some right ankle pain states he woke up this morning having right sided neck pain states his next very tender to touch along with movement. He states he had chronic pain in his right ankle and that is not new he actually has a surgery scheduled coming up for his ankle. He states the neck pain though is currently a 7 out of 10 denies any headache denies any midline pain denies any specific injury but states he did a lot of heavy lifting when he was moving the furniture Associated symptoms: Denies headache(s) or nausea Related Data Home Medications Medication Instructions Recorded Confirmed trazodone 150 mg tablet 150 mg PO BEDTIME 09/11/23 10/30/23 venlafaxine 225 mg tablet,extended 225 mg PO QAM 09/11/23 10/30/23 release 24 hr Previous Rx's Medication Instructions Recorded clonazepam 1 mg tablet (Klonopin) 1 mg PO Q8H PRN anxiety #7 tabs 09/11/23 hydrocodone 5 mg-acetaminophen 325 1 tab PO Q6H PRN pain #10 tabs 04/01/24 mg tablet methocarbamol 750 mg tablet 750 mg PO Q6H PRN spasms #20 tabs 04/01/24 naproxen 500 mg tablet (Naprosyn) 500 mg PO BID PRN pain #20 tabs 04/01/24 Allergies Allergy/AdvReac Type Severity Reaction Status Date / Time atomoxetine [From Strattera] Allergy ADR-Shakine Verified 10/29/23 16:35 ss escitalopram [From Lexapro] Allergy Unknown Verified 10/29/23 16:35 Review of Systems Const: Denies: fever(s), chills, body aches or change in appetite ENMT: Denies: throat pain or dental pain Card: Denies: chest pain Resp: Denies: dyspnea GI: Denies: abdominal pain, nausea, vomiting or diarrhea Musc: Reports: neck pain and extremity pain; Denies: back pain Skin/Breast: Denies: rash Neuro: Denies: headache(s) PFSH ED PFSH: Medical History Alcohol abuse No significant past medical history Surgical History No significant past surgical history Physical Exam Const: COMMON NORMALS: no acute distress, patient oriented x3 and healthy appearing HENMT: COMMON NORMALS: normocephalic and atraumatic HEAD & SCALP: normocephalic and atraumatic Eye: COMMON NORMALS: conjunctivae normal CONJUNCTIVA: Yes conjunctivae normal Neck/C-Spine: COMMON NORMALS: full ROM and supple OTHER: Tenderness on right side of neck to palpation has pain when he looks to the right as well Chest: COMMONS NORMALS: normal inspection of the chest Resp: COMMON NORMALS: normal respiratory effort Cardio: COMMON NORMALS: regular rate RATE: regular rate Extremity: NARRATIVE EXTREMITY EXAM: Some tenderness along right ankle no deformity he is ambulatory here distal pulses sensation intact Neuro: COMMON NORMALS: patient oriented x3, moves all extremities and no focal motor deficits Psych: COMMON NORMALS: mental status grossly normal, Normal thought process present and cooperative THOUGHT PROCESS: Normal thought process present Skin: COMMON NORMALS: no rashes or lesions noted and no wounds GENERAL SKIN EXAM: no rashes or lesions noted Course Vital Signs: Vital signs: Vital Signs Temperature 99.2 F 04/01/24 16:46 Pulse Rate 106 H 04/01/24 16:46 Respiratory Rate 17 04/01/24 16:46 Blood Pressure 168/108 04/01/24 16:46 Pulse Oximetry 98 04/01/24 16:46 Oxygen Delivery Me thod Room Air 04/01/24 16:46 MDM - Neck Pain/Injury Medical Decision Making Patient presents here with neck pain likely muscular he is well-appearing here we will prescribe muscle laxer and small pain meds he is follow-up with PCP and return if worsening understands agrees to plan. Medical Records I reviewed the patient's medical records. No radiology studies performed this visit Discharge Plan Discharge Patient Disposition: Home Clinical Impression: Strain of neck muscle Condition: Stable Prescriptions: New hydrocodone-acetaminophen 5-325 mg tablet 1 tab PO Q6H PRN (Reason: pain) Qty: 10 0RF methocarbamol 750 mg tablet 750 mg PO Q6H PRN (Reason: spasms) Qty: 20 0RF naproxen [Naprosyn] 500 mg tablet 500 mg PO BID PRN (Reason: pain) Qty: 20 0RF No Action trazodone 150 mg Tablet 150 mg PO BEDTIME venlafaxine 225 mg Tablet Extended Release 24hr 225 mg PO QAM clonazepam [Klonopin] 1 mg tablet 1 mg PO Q8H PRN (Reason: anxiety) Qty: 7 0RF Discharge Orders: Discharge ED (Routine); Ordered 04/01/24 Ordered By: Lonnie Carrasco Referrals: Murray Camacho III, DO [Primary Care Provider] - 4-7 days Discharge Diet: Advance as tolerated Discharge Activity: Resume usual activity Patient Instructions: Neck Pain (ED), Opioid Safety Coding Level of Care Code ED Experimental Box Tester for Chris Georges
[2024-04-01] MEDS: methocarbamol 750 mg Tablet 1500 MG PO (17:01)
[2024-04-01] MEDS: HYDROcodone-acetaminophen 7.5-325 mg Tablet 1 TAB PO (17:01)
[2024-04-01] MEDS: ketorolac 60 mg/2 mL INJ IM (17:02)
== END 2024-04-01 17:15 | disposition home or self-care (01) ==
PROVIDERS: Emergency Provider Emergency Medicine; PCP Family Medicine
DX: S16.1XXA Strain of muscle, fascia and tendon at neck level, initial encounter (principal); X58.XXXA Exposure to other specified factors, initial encounter
CPT/HCPCS: 96372; 99284; J1885

== ENCOUNTER 2024-04-09 16:10 | Outpatient (CLI) | payer OTHER, SELFPAY ==
--- NOTE | 2024-04-09 16:22 | CT_ITS ---
WS: [id number] CT RIGHT ANKLE, NONCONTRAST HISTORY: RIGHT ANKLE PAIN Technique: All CT scans at [facility] use at least one of these dose optimization techniques: automated exposure control; mA and/or kV adjustment per patient size (includes targeted exams where dose is matched to clinical indication); or iterative reconstruction. DLP: 121.91 mGy.cm COMPARISON: Radiograph 07/16/2022 Severe degenerative changes at the ankle joint. Similar findings were also noted on a prior radiograp h from 07/16/2022. 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 Osteophytic ridging and flattening of the talar dome. Subchondral cystic changes i n both the distal tibia and the talus. Surface cortical irregularity also within the calcaneus. Hyper trophic bone formation distal fibula. No acute fracture is identified. Small amount of edema surrounding the ankle. No large joint effusion . CT/CT ankle RT wo con* [id number] IMPRESSION: 1. Severe arthropathy involving the ankle joints but most significant at the t ibiotalar joint space. 2. Remodeling of the talus and distal tibia. 3. Numerous osseous fragments at the ankle joint.
== END 2024-04-09 16:11 | disposition home or self-care (01) ==
PROVIDERS: PCP Family Medicine; Visit Provider Nurse Practitioner Family
DX: M12.871 Other specific arthropathies, not elsewhere classified, right ankle and foot (principal); M25.771 Osteophyte, right ankle
CPT/HCPCS: 73700

== ENCOUNTER 2024-06-13 10:47 | Emergency (ER) | payer OTHER, SELFPAY ==
[2024-06-13 11:17] VITALS: BP 155/94; PULSE 89; RESP 20; TEMP 36.4; O2SAT 93; BMI 33.7
--- NOTE | 2024-06-13 12:03 | W.ED.WOUNDLC ---
HPI - Wound/Laceration General: Chief Complaint: Wound/Laceration Stated Complaint: amputation pain Time Seen by Provider: 06/13/24 11:29 History of Present Illness: This patient is a 48-year-old white male who presents to the emergency department having severe pain in the right lower leg. Patient underwent a right BKA on at the [facility] in [place]. 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 Patient states he was prescribed p.o. Dilaudid which is not effective. He has not had a fever. Related Data Home Medications ?Medication ?Instructions ?Recorded ?Confirmed trazodone 150 mg tablet 150 mg PO BEDTIME 09/11/23 10/30/23 venlafaxine 225 mg tablet,extended 225 mg PO QAM 09/11/23 10/30/23 release 24 hr Previous Rx's ?Medication ?Instructions ?Recorded clonazepam 1 mg tablet (Klonopin) 1 mg PO Q8H PRN anxiety #7 tabs 09/11/23 methocarbamol 750 mg tablet 750 mg PO Q6H PRN spasms #20 tabs 04/01/24 cephalexin 500 mg capsule 500 mg PO QID 10 days #40 caps 06/13/24 ibuprofen 800 mg tablet 800 mg PO TID #30 tabs 06/13/24 oxycodone-acetaminophen 7.5 mg-325 1 tab PO Q4H PRN pain #60 tabs 06/13/24 mg tablet (Percocet) Allergies Allergy/AdvReac Type Severity Reaction Status Date / Time atomoxetine (From Strattera) Allergy ADR-Shakine Verified 10/29/23 16:35 ss escitalopram (From Lexapro) Allergy Unknown Verified 10/29/23 16:35 Review of Systems General: Reports: 10 or more systems reviewed and unremarkable except in HPI and below Musc: Reports: other (Pain right lower leg) [facility] ED PFSH: Medical History Alcohol abuse No significant past medical history Surgical History No significant past surgical history Physical Exam Const: COMMON NORMALS: no acute distress, patient oriented x3 and no limitations GENERAL APPEARANCE: cooperative and comfortable HENMT: COMMON NORMALS: normocephalic, atraumatic, Normal nasal mucous membranes and turbinates present, moist oral mucous membranes and oropharynx normal HEAD & SCALP: normal to inspection, normocephalic and atraumatic FACE & SINUS: normal facial exam NOSE: Normal nasal mucous membranes and turbinates present Eye: COMMON NORMALS: Equal, round and reactive pupils present, EOMs intact bilaterally and conjunctivae normal GENERAL EYE: appearance normal, both eyes and all related structures CONJUNCTIVA: Yes conjunctivae normal PUPIL: Yes Equal, round and reactive pupils present Neck/C-Spine: COMMON NORMALS: supple and no JVD Chest: COMMONS NORMALS: normal inspection of the chest Resp: COMMON NORMALS: normal respiratory effort and clear to auscultation bilaterally AUSCULTATION: clear to auscultation bilaterally Cardio: COMMON NORMALS: no JVD, regular rate, regular rhythm, No gallops present (Cardio), No murmurs present (Cardio) and No rub (Cardio) RATE: regular rate RHYTHM: regular rhythm GI: COMMON NORMALS: Normal to inspection, nondistended, normoactive bowel sounds present, Soft to palpation and non-tender AUSCULTATION: Yes normoactive bowel sounds PALPATION: Yes Soft to palpation : COMMON NORMALS: Yes no CVA tenderness BLADDER/KIDNEY EXAM: Yes no CVA tenderness Back/Pelvis: COMMON NORMALS: no CVA tenderness and thoracic and lumbar spine normal to inspection Extremity: OTHER: Right BKA. Cast over the right leg up to the mid thigh. No warmth or erythema to the mid thigh. Neuro: COMMON NORMALS: patient oriented x3 and CN's II-XII intact bilaterally Psych: COMMON NORMALS: mental status grossly normal, Normal thought process present and cooperative THOUGHT PROCESS: Normal thought process present Skin: COMMON NORMALS: no rashes or lesions noted, turgor normal and no jaundice GENERAL SKIN EXAM: no rashes or lesions noted and turgor normal Course Vital Signs: Vital signs: Vital Signs Temperature 97.6 F 06/13/24 11:17 Pulse Rate 89 06/13/24 11:17 Respiratory Rate 20 H 06/13/24 11:17 Blood Pressure 155/94 06/13/24 11:17 Pulse Oximetry 93 06/13/24 11:17 Oxygen Delivery Me thod Room Air 06/13/24 11:17 MDM - Wound/Laceration Medical Decision Making Patient was given IV Dilaudid and Toradol. I did prescribe Percocet 7.5 mg tablets along with 800 mg ibuprofen tablets. I also placed him on Keflex. If he continues to have severe pain on Saturday recommended he contact his orthopedist. Otherwise follow-up in 10 days as scheduled. He was discharged in stable condition. No radiology studies performed this visit Discharge Plan Discharge Patient Disposition: Home Clinical Impression: Post-operative pain Condition: Stable Prescriptions: New oxycodone-acetaminophen [Percocet] 7.5-325 mg tablet 1 tab PO Q4H PRN (Reason: pain) Qty: 60 0RF cephalexin 500 mg capsule 500 mg PO QID 10 Days Qty: 40 0RF ibuprofen 800 mg tablet 800 mg PO TID Qty: 30 0RF Discontinued hydrocodone-acetaminophen 5-325 mg tablet 1 tab PO Q6H PRN (Reason: pain) Qty: 10 0RF naproxen [Naprosyn] 500 mg tablet 500 mg PO BID PRN (Reason: pain) Qty: 20 0RF No Action trazodone 150 mg Tablet 150 mg PO BEDTIME venlafaxine 225 mg Tablet Extended Release 24hr 225 mg PO QAM clonazepam [Klonopin] 1 mg tablet 1 mg PO Q8H PRN (Reason: anxiety) Qty: 7 0RF methocarbamol 750 mg tablet 750 mg PO Q6H PRN (Reason: spasms) Qty: 20 0RF Discharge Orders: Discharge ED (Routine); Ordered 06/13/24 Ordered By: Corby Burk Referrals: Murray Camacho III, [Primary Care Provider] - Patient Instructions: Opioid Safety, Pain Management Activity Restrictions/Additional Instructions: If this therapy is not effective contact your orthopedic surgeon on Saturday. Otherwise follow-up with Ortho as scheduled. Print Language: Venezuelan Coding Level of Care Code ED Associate Professor Of Library Media for Chris Georges
[2024-06-13] MEDS: ketorolac 30 mg/mL INJ IVP (12:13)
[2024-06-13] MEDS: HYDROMORPHONE HCL 0.5 MG/0.5 ML INJ 1 MG IVP (12:13)
[2024-06-13 12:14] VITALS: O2SAT 98
[2024-06-13 13:16] VITALS: BP 124/78; PULSE 84; O2SAT 93
== END 2024-06-13 13:17 | disposition home or self-care (01) ==
PROVIDERS: Emergency Provider Emergency Medicine; PCP Family Medicine
DX: G89.18 Other acute postprocedural pain (principal); M79.604 Pain in right leg
CPT/HCPCS: 36415; 96374; 96375; 99284; J1171; J1885

== ENCOUNTER 2024-06-14 12:05 | Emergency (ER) | payer OTHER, SELFPAY ==
[2024-06-14] VITALS (7 sets, daily range): BP systolic 136–150; BP diastolic 54–95; PULSE 78–106; RESP 17–18; TEMP 37; O2SAT 89–99; BMI 33.7
[2024-06-14] MEDS: ondansetron 2 mg/ML SDV 2 mL 4 MG IVP (13:22)
[2024-06-14] MEDS: sodium chloride 0.9% 1,000 ML 999 ML IV (13:22)
--- NOTE | 2024-06-14 13:31 | PC.NURSE ---
Went to [facility] to pull diludid, opened drawer, only pulled one syringe, should have pulled 2. I returned the one syringe and it asked me to return 2 so i did in the computer, but really only returned 1. Teresa GÓMEZ instructed me to go back in and pull the correct amount of diludid. The [facility] then told us our count was off, we called pharmacy and spoke with kimmy, he told us to go into the [facility] and fix discrepency and count and remove appropriate medication. All of this was witnessed by Teresa GÓMEZ.
[2024-06-14] MEDS: HYDROmorphone 0.5 MG/0.5 ML INJ 1 MG IVP ×3 (13:38→16:12)
[2024-06-14] MEDS: ketorolac 30 mg/mL INJ IVP (14:24)
--- NOTE | 2024-06-14 14:29 | PC.PHAR ---
[facility] is [facility]
--- NOTE | 2024-06-14 15:36 | W.ED.EXTPRO ---
HPI - Extremity Problem General: Chief complaint: Extremity Problem,Nontraumatic Stated complaint: pain in amputated limb Time Seen by Provider: 06/14/24 12:37 History of Present Illness: This patient is a 48-year-old white male who I saw yesterday as well for postoperative pain. Patient had a right BKA done on and . I did prescribe Percocet tablets yesterday. He states those help but he is having severe breakthrough pain. Related Data Home Medications ?Medication ?Instructions ?Recorded ?Confirmed trazodone 150 mg tablet 150 mg PO BEDTIME 09/11/23 06/14/24 venlafaxine 225 mg tablet,extended 225 mg PO QAM 09/11/23 06/14/24 release 24 hr Previous Rx's ?Medication ?Instructions ?Recorded clonazepam 1 mg tablet (Klonopin) 1 mg PO Q8H PRN anxiety #7 tabs 09/11/23 methocarbamol 750 mg tablet 750 mg PO Q6H PRN spasms #20 tabs 04/01/24 cephalexin 500 mg capsule 500 mg PO QID 10 days #40 caps 06/13/24 ibuprofen 800 mg tablet 800 mg PO TID #30 tabs 06/13/24 oxycodone-acetaminophen 7.5 mg-325 1 tab PO Q4H PRN pain #60 tabs 06/13/24 mg tablet (Percocet) Allergies Allergy/AdvReac Type Severity Reaction Status Date / Time atomoxetine (From Strattera) Allergy ADR-Shakine Verified 10/29/23 16:35 ss escitalopram (From Lexapro) Allergy Unknown Verified 10/29/23 16:35 Review of Systems General: Reports: 10 or more systems reviewed and unremarkable except in HPI and below Musc: Reports: extremity pain (Right leg) [facility] ED PFSH: Medical History Alcohol abuse No significant past medical history Surgical History No significant past surgical history Physical Exam Const: COMMON NORMALS: patient oriented x3 and no limitations GENERAL APPEARANCE: cooperative HENMT: COMMON NORMALS: normocephalic, atraumatic, Normal nasal mucous membranes and turbinates present, moist oral mucous membranes and oropharynx normal HEAD & SCALP: normal to inspection, normocephalic and atraumatic FACE & SINUS: normal facial exam NOSE: Normal nasal mucous membranes and turbinates present Eye: COMMON NORMALS: Equal, round and reactive pupils present, EOMs intact bilaterally and conjunctivae normal GENERAL EYE: appearance normal, both eyes and all related structures CONJUNCTIVA: Yes conjunctivae normal PUPIL: Yes Equal, round and reactive pupils present Neck/C-Spine: COMMON NORMALS: supple and no JVD Chest: COMMONS NORMALS: normal inspection of the chest Resp: COMMON NORMALS: normal respiratory effort and clear to auscultation bilaterally AUSCULTATION: clear to auscultation bilaterally Cardio: COMMON NORMALS: no JVD, regular rate, regular rhythm, No gallops present (Cardio), No murmurs present (Cardio) and No rub (Cardio) RATE: regular rate RHYTHM: regular rhythm GI: COMMON NORMALS: Normal to inspection, nondistended, normoactive bowel sounds present, Soft to palpation and non-tender AUSCULTATION: Yes normoactive bowel sounds PALPATION: Yes Soft to palpation : COMMON NORMALS: Yes no CVA tenderness BLADDER/KIDNEY EXAM: Yes no CVA tenderness Back/Pelvis: COMMON NORMALS: no CVA tenderness and thoracic and lumbar spine normal to inspection Extremity: NARRATIVE EXTREMITY EXAM: Right BKA with cast up to the mid right thigh. Neuro: COMMON NORMALS: patient oriented x3 and CN's II-XII intact bilaterally Psych: COMMON NORMALS: mental status grossly normal, Normal thought process present and cooperative THOUGHT PROCESS: Normal thought process present Skin: COMMON NORMALS: no rashes or lesions noted, turgor normal and no jaundice GENERAL SKIN EXAM: no rashes or lesions noted and turgor normal Course Vital Signs: Vital signs: Vital Signs Temperature 98.6 F 06/14/24 12:11 Pulse Rate 78 06/14/24 12:49 Respiratory Rate 18 06/14/24 12:49 Blood Pressure 150/95 06/14/24 14:02 Pulse Oximetry 93 06/14/24 15:05 Oxygen Delivery Me thod Room Air 06/14/24 13:16 MDM - Extremity (Nontraumatic) Medical Decision Making Patient was given IV Dilaudid for his pain. I did contact orthopedics at [place]. Initially discussed case with Dr. Bardales who is on-call and then discussed the case with the patient's orthopedist. They both recommended bivalving the cast to relieve some pressure and then applying Gonzalez wrap over that. This was done and patient's pain has improved significantly. Patient was subsequently discharged in stable condition. Continue the Percocet as needed. Follow-up with orthopedics tomorrow as previously scheduled. No radiology studies performed this visit Discharge Plan Discharge Patient Disposition: Home Clinical Impression: Post-operative pain Condition: Stable Prescriptions: No Action trazodone 150 mg Tablet 150 mg PO BEDTIME venlafaxine 225 mg Tablet Extended Release 24hr 225 mg PO QAM clonazepam [Klonopin] 1 mg tablet 1 mg PO Q8H PRN (Reason: anxiety) Qty: 7 0RF oxycodone-acetaminophen [Percocet] 7.5-325 mg tablet 1 tab PO Q4H PRN (Reason: pain) Qty: 60 0RF cephalexin 500 mg capsule 500 mg PO QID 10 Days Qty: 40 0RF ibuprofen 800 mg tablet 800 mg PO TID Qty: 30 0RF methocarbamol 750 mg tablet 750 mg PO Q6H PRN (Reason: spasms) Qty: 20 0RF Discharge Orders: Discharge ED (Routine); Ordered 06/14/24 Ordered By: Corby Burk Referrals: Murray Camacho III, DO [Primary Care Provider] - Patient Instructions: Opioid Safety, Pain Management Activity Restrictions/Additional Instructions: Follow-up with your orthopedic surgeon tomorrow as scheduled. Print Language: Croatian Coding Level of Care Code ED Lighting Specialist for Chris Georges
== END 2024-06-14 16:21 | disposition home or self-care (01) ==
PROVIDERS: Emergency Provider Emergency Medicine; PCP Family Medicine
DX: G89.18 Other acute postprocedural pain (principal); Z98.890 Other specified postprocedural states
CPT/HCPCS: 96374; 96375; 96376; 99284; J1171; J1885; J2405; J7030

== ENCOUNTER 2024-06-16 16:33 | Emergency (ER) | payer OTHER, SELFPAY ==
[2024-06-16 16:36] VITALS: BP 169/80; PULSE 112; RESP 17; TEMP 36.7; O2SAT 93; BMI 32.5
[2024-06-16 18:29] LABS: Basophils % 0.4 %; Eosinophils # 0.3 10^3/uL (0.0-0.8); Eosinophils % 3.5 %; Hematocrit 41.1 % (37-53); Lymphocytes # 1.1 10^3/uL (0.8-4.8); Lymphocytes % 13.3 %; Mean Corpuscular HGB Conc 32.1 g/dL (30-55); Mean Corpuscular Hemoglobin 29.8 pg (27-33); Mean Corpuscular Volume 92.8 fl (82-101); Mean Platelet Volume 9.7 fL (7.4-10.4); Monocytes # 1.1 10^3/uL (0.2-0.9); Monocytes % 13.1 %; Neutrophils # 5.91 10^3/uL (1.8-7.7); Neutrophils % 69.5 %; Nucleated Red Blood Cells % 0 %; Platelet Count 276 10^3/cmm (157-399); Red Blood Count 4.43 10^6/uL (3.85-5.65); Red Cell Distribution Width 13.4 % (12.1-15.1)
[2024-06-16 18:42] LABS: Alanine Aminotransferase 35 U/L (0-41); Albumin Level 3.6 g/dL (3.5-5.2); Alkaline Phosphatase 107 U/L (40-130); Anion Gap 15.1 (5-19); Aspartate Amino Transferase 76 U/L (0-40); Blood Urea Nitrogen 18 mg/dL (6-20); Calcium 8.9 mg/dL (8.5-10.5); Carbon Dioxide 26 mmol/L (22-29); Chloride 103 mmol/L (98-107); Creatinine Clr Calc Pharmacy 125.0607; Globulin 2.9 g/dL (1.3-4.6); Glomerular Filtration Rate 79.8 mL/min (90-130); Glucose 91 mg/dL (65-115); Osmolality Calculated 291 mOsm/kg (285-295); Potassium 4.1 mmol/L (3.5-5.1); Sodium 140 mmol/L (136-145); Total Bilirubin 0.2 mg/dL (0.15-1.2); Total Protein 6.5 g/dL (6.6-8.7)
--- NOTE | 2024-06-16 19:08 | ED_ITS ---
HPI - Extremity Problem 2 General: Chief complaint: Extremity Problem,Nontraumatic Stated complaint: pain in R leg, post amputation Time Seen by Provider: 06/16/24 17:55 Source: patient Mode of arrival: wheelchair Limitations: no limitations History of Present Illness: Patient is a 48-year-old male who presents here for the third time in the past week for continued right lower extremity pain status post BKA last . States that he has been seen here in the ED for breakthrough pain, where he has been treated with IV Dilaudid and IV Toradol. Was prescribed Percocet with his first visit and this was since increased. With his last visit Ortho was consulted at [place] where he had the procedure, and they had recommended bivalving his cast. Patient has since followed up with orthopedist and had a second area cut open to relieve pressure, but states that every day at about 5 PM the pain will sharply increase. He states that he was told to come to the ED for IV pain medications. He has no new complaints, no fevers, no nausea or vomiting, states he is just here for pain meds. MD Complaint: extremity pain Onset (ago): day(s) Pain Consistency: constant Location: right and lower extremity Radiation: proximal Relieving factors: nothing Exacerbating factors: nothing Associated symptoms: Deny chest pain, fever(s) or rash Context: recent surgery/procedure (Right BKA) Related Data Home Medications ?Medication ?Instructions ?Recorded ?Confirmed trazodone 150 mg tablet 150 mg PO BEDTIME 09/11/23 0 06/14/24 venlafaxine 225 mg tablet,extended 225 mg PO QAM 09/1006/14/24 release 24 hr Previous Rx's ?Medication ?Instructions ?Recorded clonazepam 1 mg tablet (Klonopin) 1 mg PO Q8H PRN anxi ety #7 tabs 09/11/23 methocarbamol 750 mg tablet 750 mg PO Q6H PRN spasms # 20 tabs 04/01/24 cephalexin 500 mg capsule 500 mg PO QID 10 days #40 ca ps 06/13/24 ibuprofen 800 mg tablet 800 mg PO TID #30 tabs 06/13 oxycodone-acetaminophen 7.5 mg-325 1 tab PO Q4H PRN pa in #60 tabs 06/13/24 mg tablet (Percocet) Allergies Allergy/AdvReac Type Severity Reaction Status Date / Time atomoxetine (From Strattera) Allergy ADR-Shakine Verified 10/29/23 16:35 ss escitalopram (From Lexapro) Allergy Unknown Verified 10/29/23 16:35 Review of Systems 2 General: Reports: 10 or more systems reviewed and unremarkable except in HPI and below Const: Denies: fever(s) or chills Card: Denies: chest pain Resp: Denies: dyspnea or productive cough GI: Denies: abdominal pain, nausea, vomiting or diarrhea : Denies: flank pain Musc: Reports: extremity pain (Right lower extremity); Denies: neck pain, back pain, extremity swelling, joint pain, joint swelling, joint redness, joint warmth, limited range of motion or muscle weakness Skin/Breast: Denies: rash Neuro: Denies: headache(s), numbness in extremities or weakness in extremities PFSH ED 2 PFSH: Medical History Alcohol abuse No significant past medical history Surgical History No significant past surgical history Physical Exam 2 Const: COMMON NORMALS: no acute distress, patient oriented x3, no limitations, healthy appearing, alert and well nourished HENMT: COMMON NORMALS: normocephalic and atraumatic HEAD & SCALP: n ormocephalic and atraumatic Neck/C-Spine: COMMON NORMALS: full ROM, supple and no meningeal signs Resp: COMMON NORMALS: normal respiratory effort, No use of accessory muscles and clear to auscultation bilaterally AUSCULTATION: clear to auscultation bilaterally Cardio: COMMON NORMALS: regular rate and regular rhythm RATE: regular rate RHYTHM: regular rhythm Extremity: NARRATIVE EXTREMITY EXAM: Right BKA, cast present which limits exam. Evaluation of the right proximal thigh/hip does not reveal any abnormalities. Neuro: COMMON NORMALS: patient oriented x3, moves all extremities, no focal motor deficits and no sensory deficits noted SENSORIUM/ORIENTATION: Yes alert MENINGEAL SIGNS: Yes no meningeal signs Skin: COMMON NORMALS: no rashes or lesions noted GENERAL SKIN EXAM: no rashes or lesions noted Course 2 Vital Signs: Vital signs: Vital Signs Temperature 98.0 F 06/16/24 16:36 Pulse Rate 112 H 06/16/24 16:36 Respiratory Rate 17 06/16/24 16:36 Blood Pressure 169/80 06/16/24 16:36 Pulse Oximetry 93 06/16/24 16:36 Oxygen Delivery Me thod Room Air 06/16/24 16:36 MDM - Extremity (Nontraumatic) Medical Decision Making Patient presenting here for the third time in the past week for pain medications status post BKA. States he was told to come in for orthopedics for pain control. He has no new symptoms to report, has since followed up with orthopedist and had his cast bivalved. During time of examination his vitals were within normal limits. Lab work obtained unremarkable. He has appeared calm and cooperative here in the ED, treated with IV Dilaudid and Toradol and allowed discharge home and encouraged him to follow-up with his orthopedist in the next couple days for reevaluation. He agrees with this plan at this time. Lab Data 06/16/24 18:14 06/16/24 18:14 Laboratory Results WBC 8.50 10^3/uL (3.29-11.43) 06/16/24 18:14 RBC 4.43 10^6/uL (3.85-5.65) 06/16/24 18:14 Hgb 13.20 g/dL (11.27-16.99) 06/16/24 18:14 Hct 41.1 % (37-53) 06/16/24 18:14 MCV 92.8 fl (82-101) 06/16/24 18:14 MCH 29.8 pg (27-33) 06/16/24 18:14 MCHC 32.1 g/dL (30-55) 06/16/24 18:14 RDW 13.4 % (12.1-15.1) 06/16/24 18:14 Plt Count 276 10^3/cmm (157-399) 06/16/24 18:14 MPV 9.7 fL (7.4-10.4) 06/16/24 18:14 Neut % (Auto) 69.5 % 06/16/24 18:14 Lymph % (Auto) 13.3 % 06/16/24 18:14 Cowley % (Auto) 13.1 % 06/16/24 18:14 Eos % (Auto) 3.5 % 06/16/24 18:14 Baso % (Auto) 0.4 % 06/16/24 18:14 Neut # (Auto) 5.91 10^3/uL (1.8-7.7) 06/16/24 18:14 Lymph # (Auto) 1.1 10^3/uL (0.8-4.8) 06/16/24 18:14 Cowley # (Auto) 1.1 10^3/uL (0.2-0.9) H 06/16/24 18:14 Eos # (Auto) 0.3 10^3/uL (0.0-0.8) 06/16/24 18:14 Baso # (Auto) 0.0 10^3/uL (0.0-0.1) 06/16/24 18:14 Nucleated RBC % (auto) 0 % 06/16/24 18:14 Nucleated RBCs # 0.0 /100WBC 06/16/24 18:14 Sodium 140 mmol/L (136-145) 06/16/24 18:14 Potassium 4.1 mmol/L (3.5-5.1) 06/16/24 18:14 Chloride 103 mmol/L (98-107) 06/16/24 18:14 Carbon Dioxide 26 mmol/L (22-29) 06/16/24 18:14 Anion Gap 15.1 (5-19) 06/16/24 18:14 BUN 18 mg/dL (6-20) 06/16/24 18:14 Creatinine 1.0 mg/dL (0.7-1.2) 06/16/24 18:14 GFR Calculation 79.8 mL/min (90-130) L 06/16/24 18:14 Glucose 91 mg/dL (65-115) 06/16/24 18:14 Calculated Osmolality 291 mOsm/kg (285-295) 06/16/24 18:14 Calcium 8.9 mg/dL (8.5-10.5) 06/16/24 18:14 Total Bilirubin 0.2 mg/dL (0.15-1.2) 06/16/24 18:14 AST 76 U/L (0-40) H 06/16/24 18:14 ALT 35 U/L (0-41) 06/16/24 18:14 Alkaline Phosphatase 107 U/L (40-130) 06/16/24 18:14 Total Protein 6.5 g/dL (6.6-8.7) L 06/16/24 18:14 Albumin 3.6 g/dL (3.5-5.2) 06/16/24 18:14 Globulin 2.9 g/dL (1.3-4.6) 06/16/24 18:14 No radiology studies performed this visit Discharge Plan Discharge Condition: Stable Prescriptions: No Action trazodone 150 mg Tablet 150 mg PO BEDTIME venlafaxine 225 mg Tablet Extended Release 24hr 225 mg PO QAM clonazepam [Klonopin] 1 mg tablet 1 mg PO Q8H PRN (Reason: anxiety) Qty: 7 0RF oxycodone-acetaminophen [Percocet] 7.5-325 mg tablet 1 tab PO Q4H PRN (Reason: pain) Qty: 60 0RF cephalexin 500 mg capsule 500 mg PO QID 10 Days Qty: 40 0RF ibuprofen 800 mg tablet 800 mg PO TID Qty: 30 0RF methocarbamol 750 mg tablet 750 mg PO Q6H PRN (Reason: spasms) Qty: 20 0RF Referrals: Juwan Mishra APRN [Primary Care Provider] - Print Language: Polish Coding Level of Care Code ED Human Resources Mgr for Chris Georges
[2024-06-16] MEDS: ketorolac 30 mg/mL INJ IVP (19:21)
[2024-06-16] MEDS: HYDROmorphone 0.5 MG/0.5 ML INJ IVP ×2 (19:22→19:55)
[2024-06-16 19:27] VITALS: PULSE 96; O2SAT 94
[2024-06-16 20:23] VITALS: BP 146/83; PULSE 86; O2SAT 96
== END 2024-06-16 20:24 | disposition home or self-care (01) ==
PROVIDERS: Family Medicine; Emergency Provider Physician Assistant; PCP Nurse Practitioner Family
DX: M79.604 Pain in right leg (principal); Z98.890 Other specified postprocedural states
CPT/HCPCS: 36415; 80053; 85025; 96374; 96375; 96376; 99284; J1171; J1885

== ENCOUNTER 2024-06-17 23:01 | Inpatient (IN) | payer OTHER, SELFPAY ==
[2024-06-17 23:16] VITALS: BP 124/65; PULSE 90; RESP 16; TEMP 36.7; O2SAT 97
[2024-06-18] VITALS (28 sets, daily range): BP systolic 82–158; BP diastolic 38–128; PULSE 72–118; RESP 14–22; TEMP 36.2–37.1; O2SAT 88–98; BMI 33.9
[2024-06-18 00:46] LABS: Basophils % 0.3 %; Eosinophils # 0.4 10^3/uL (0.0-0.8); Lymphocytes # 1.1 10^3/uL (0.8-4.8); Lymphocytes % 8.7 %; Mean Corpuscular HGB Conc 32.9 g/dL (30-55); Mean Corpuscular Hemoglobin 29.4 pg (27-33); Mean Corpuscular Volume 89.4 fl (82-101); Mean Platelet Volume 9.3 fL (7.4-10.4); Monocytes # 1.3 10^3/uL (0.2-0.9); Monocytes % 10.9 %; Neutrophils # 9.41 10^3/uL (1.8-7.7); Neutrophils % 76.8 %; Nucleated Red Blood Cells % 0 %; Platelet Count 273 10^3/cmm (157-399); Red Blood Count 4.25 10^6/uL (3.85-5.65); Red Cell Distribution Width 13.3 % (12.1-15.1); White Blood Count 12.25 10^3/uL (3.29-11.43)
[2024-06-18] MEDS: HYDROmorphone 0.5 MG/0.5 ML INJ 1 MG IVP ×5 (00:58→23:49)
[2024-06-18 01:01] LABS: Anion Gap 15.9 (5-19); Blood Urea Nitrogen 24 mg/dL (6-20); Calcium 8.7 mg/dL (8.5-10.5); Carbon Dioxide 23 mmol/L (22-29); Chloride 99 mmol/L (98-107); Creatinine Clr Calc Pharmacy 78.8874; Glomerular Filtration Rate 46.4 mL/min (90-130); Glucose 98 mg/dL (65-115); Osmolality Calculated 282 mOsm/kg (285-295); Potassium 3.9 mmol/L (3.5-5.1); Sodium 134 mmol/L (136-145)
[2024-06-18] MEDS: ketorolac 30 mg/mL INJ IVP (01:04)
[2024-06-18] MEDS: ondansetron 2 mg/ML SDV 2 mL 4 MG IVP (01:07)
[2024-06-18] MEDS: sodium chloride 0.9% 1,000 ML 999 ML IV ×2 (01:13→10:17)
[2024-06-18] MEDS: VANCOMYCIN ADD-Vantage 1,000 MG in 0.9% NaCl ADD-Vantage 250 ML 250 MG IV (01:18)
--- NOTE | 2024-06-18 01:50 | CTR_ITS ---
PROCEDURE INFORMATION: Exam: CT Right Lower Extremity Exam date and time: 06/18/2024 2:03 AM Age: 48 years old Clinical indication: Pain; Lower leg; Right; Prior surgery; Surgery date: 3-7 days post-operative; Surgery type: Bka; Additional info: S/P bka, severe pain TECHNIQUE: Imaging protocol: CT of the right lower extremity without contrast was performed. Radiation optimization: All CT scans at this facility use at least one of these dose optimization techniques: automated exposure control; mA and/or kV adjustment per patient size (includes targeted exams where dose is matched to clinical indication); or iterative reconstruction. COMPARISON: CT ankle RT wo con* [id number] 04/09/2024 4:23 PM RADIATION DOSE METRICS: Total DLP (mGy-cm): 1244.08 FINDINGS: Bones/joints: Status post [id number] amputation of the right lower extremity. Soft tissues: Soft tissues of the right lower extremity demonstrate superficial stranding and edema, most prominent along the lateral aspect of the thigh and extending to the knee area. No distinct focal drainable fluid collection. CT/CT lower leg RT wo con* [id number] IMPRESSION: 1. Status post [id number] amputation of the right lower extremity. 2. Soft tissues of the right lower extremity demonstrate superficial stranding and edema, most prominent along the lateral aspect of the thigh and extending to the knee area. No distinct focal drainable fluid collection.
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
--- NOTE | 2024-06-18 04:23 | ED_ITS ---
HPI - Extremity Problem 2 General: Chief complaint: Extremity Problem,Nontraumatic Stated complaint: R amputaion Pain Time Seen by Provider: 06/18/24 00:35 History of Present Illness: This patient is a 48-year-old white male who presents to the emergency department with severe right leg pain. He is 1 week postop right BKA. This is his fourth visit to the emergency department. This is the third time I have seen him. The last time I saw him I did contact his orthopedic surgeon and [place] at [facility]. He did recommend we bivalved the cast to relieve some pressure. I also placed him on Keflex. Patient has been on Percocet for pain. When he was initially discharged from the hospital after his operation he was prescribed Dilaudid tablets which were not effective. He did follow-up with his surgeon on Saturday as scheduled. He states they made a posterior cut in the cast as well. Patient completely removed the cast today secondary to pain and drainage. He has not had a fever. Related Data Home Medications ?Medication ?Instructions ?Recorded ?Confirmed trazodone 150 mg tablet 150 mg PO BEDTIME 09/11/23 0 06/14/24 venlafaxine 225 mg tablet,extended 225 mg PO QAM 09/1006/14/24 release 24 hr Previous Rx's ?Medication ?Instructions ?Recorded clonazepam 1 mg tablet (Klonopin) 1 mg PO Q8H PRN anxi ety #7 tabs 09/11/23 methocarbamol 750 mg tablet 750 mg PO Q6H PRN spasms # 20 tabs 04/01/24 cephalexin 500 mg capsule 500 mg PO QID 10 days #40 ca ps 06/13/24 ibuprofen 800 mg tablet 800 mg PO TID #30 tabs 06/13 oxycodone-acetaminophen 7.5 mg-325 1 tab PO Q4H PRN pa in #60 tabs 06/13/24 mg tablet (Percocet) Allergies Allergy/AdvReac Type Severity Reaction Status Date / Time atomoxetine (From Strattera) Allergy ADR-Shakine Verified 06/17/24 23:20 ss escitalopram (From Lexapro) Allergy Unknown Verified 06/17/24 23:20 Review of Systems 2 General: Reports: 10 or more systems reviewed and unremarkable except in HPI and below Musc: Reports: extremity pain PFSH ED 2 PFSH: Medical History Alcohol abuse No significant past medical history Surgical History No significant past surgical history Physical Exam 2 Const: COMMON NORMALS: patient oriented x3 and no limitations GENERAL APPEARANCE: cooperative HENMT: COMMON NORMALS: normocephalic, atraumatic, Normal nasal mucous membranes and turbinates present, moist oral mucous membranes and oropharynx normal HEAD & SCALP: normal to inspection, normocephalic and atraumatic F SALINA & SINUS: normal facial exam NOSE: Normal nasal mucous membranes and turbinates present Eye: COMMON NORMALS: Equal, round and reactive pupils present, EOMs intact bilaterally and conjunctivae normal GENERAL EYE: appearance normal, both eyes and all related structures CONJUNCTIVA: Yes conjunctivae normal PUPIL: Yes Equal, round and reactive pupils present Neck/C-Spine: COMMON NORMALS: supple and no JVD Chest: COMMONS NORMALS: normal inspection of the chest Resp: COMMON NORMALS: normal respiratory effort and clear to auscultation bilaterally AUSCULTATION: clear to auscultation bilaterally Cardio: COMMON NORMALS: no JVD, regular rate, regular rhythm, No gallops present (Cardio), No murmurs present (Cardio) and No rub (Cardio) RATE: r egular rate RHYTHM: regular rhythm GI: COMMON NORMALS: Normal to inspection, nondistended, normoactive bowel sounds present, Soft to palpation and non-tender AUSCULTATION: Yes normoactive bowel sounds PALPATION: Yes Soft to palpation : COMMON NORMALS: Yes no CVA tenderness BLADDER/KIDNEY EXAM: Yes no CVA tenderness Back/Pelvis: COMMON NORMALS: no CVA tenderness and thoracic and lumbar spine normal to inspection Extremity: NARRATIVE EXTREMITY EXAM: Right BKA. The surgical site is warm and slightly erythematous. No drainage. Tender to palpation. Neuro: COMMON NORMALS: patient oriented x3 and CN's II-XII intact bilaterally Psych: COMMON NORMALS: mental status grossly normal, Normal thought process present and cooperative THOUGHT PROCESS: Normal thought process present Skin: COMMON NORMALS: no rashes or lesions noted, turgor normal and no jaundice GENERAL SKIN EXAM: no rashes or lesions noted and turgor normal Course 2 Vital Signs: Vital signs: Vital Signs Temperature 98.1 F 06/18/24 01:20 Pulse Rate 102 H 06/18/24 03:00 Respiratory Rate 15 06/18/24 03:00 Blood Pressure 128/71 06/18/24 01:20 Pulse Oximetry 93 06/18/24 03:00 Oxygen Delivery Me thod Nasal Cannula 06/18/24 03:00 Oxygen Flow Rate 2 06/18/24 03:00 MDM - Extremity (Nontraumatic) Medical Decision Making CBC reveals white blood cell count of 12.3. BMP revealed a BUN of 24 creatinine of 1.6. Patient was given IV Dilaudid as well as vancomycin. I discussed the case with hospitalist Dr. Bear. He did request a CT scan. That was obtained and did not reveal any fluid collection. We will admit the patient for pain control and possibly orthopedic consultation. Patient does not want to go back to [place]. Lab Data 06/18/24 00:38 06/18/24 00:38 Radiology Impressions Lower Extremity CT 06/18/24 01:50 IMPRESSION: 1. Status post mmalt-[id number]-blki amputation of the right lower extremity. 2. Soft tissues of the right lower extremity demonstrate superficial stranding and edema, most prominent along the lateral aspect of the thigh and extending to the knee area. No distinct focal drainable fluid collection. Laboratory Results WBC 12.25 10^3/uL (3.29-11.43) H 06/18/24 00:38 RBC 4.25 10^6/uL (3.85-5.65) 06/18/24 00:38 Hgb 12.50 g/dL (11.27-16.99) 06/18/24 00:38 Hct 38.0 % (37-53) 06/18/24 00:38 MCV 89.4 fl (82-101) 06/18/24 00:38 MCH 29.4 pg (27-33) 06/18/24 00:38 MCHC 32.9 g/dL (30-55) 06/18/24 00:38 RDW 13.3 % (12.1-15.1) 06/18/24 00:38 Plt Count 273 10^3/cmm (157-399) 06/18/24 00:38 MPV 9.3 fL (7.4-10.4) 06/18/24 00:38 Neut % (Auto) 76.8 % 06/18/24 00:38 Lymph % (Auto) 8.7 % 06/18/24 00:38 [place] % (Auto) 10.9 % 06/18/24 00:38 Eos % (Auto) 3.0 % 06/18/24 00:38 Baso % (Auto) 0.3 % 06/18/24 00:38 Neut # (Auto) 9.41 10^3/uL (1.8-7.7) H 06/18/24 00:38 Lymph # (Auto) 1.1 10^3/uL (0.8-4.8) 06/18/24 00:38 [place] # (Auto) 1.3 10^3/uL (0.2-0.9) H 06/18/24 00:38 Eos # (Auto) 0.4 10^3/uL (0.0-0.8) 06/18/24 00:38 Baso # (Auto) 0.0 10^3/uL (0.0-0.1) 06/18/24 00:38 Nucleated RBC % (auto) 0 % 06/18/24 00:38 Nucleated RBCs # 0.0 /100WBC 06/18/24 00:38 Sodium 134 mmol/L (136-145) L 06/18/24 00:38 Potassium 3.9 mmol/L (3.5-5.1) 06/18/24 00:38 Chloride 99 mmol/L (98-107) 06/18/24 00:38 Carbon Dioxide 23 mmol/L (22-29) 06/18/24 00:38 Anion Gap 15.9 (5-19) 06/18/24 00:38 BUN 24 mg/dL (6-20) H 06/18/24 00:38 Creatinine 1.6 mg/dL (0.7-1.2) H 06/18/24 00:38 GFR Calculation 46.4 mL/min (90-130) L 06/18/24 00:38 Glucose 98 mg/dL (65-115) 06/18/24 00:38 Calculated Osmolality 282 mOsm/kg (285-295) L 06/18/24 00:38 Calcium 8.7 mg/dL (8.5-10.5) 06/18/24 00:38 All radiology interpretation(s) finalized by discharge Discharge Plan Discharge Patient Disposition: Admitted As Inpatient Clinical Impression: Post-operative pain Post-operative infection Qualifiers: Encounter type: initial encounter Postoperative infection type: superficial incisional surgical site Qualified Code(s): T81.41XA - Infection following a procedure, superficial incisional surgical site, initial encounter Condition: Stable Coding Level of Care Code ED Hot Stone Setter for Chris Georges
[2024-06-18 04:36] LABS: D Dimer 1.38 ug/mLFEU (0-0.59)
[2024-06-18 04:39] LABS: Alcohol Level 38 mg/dL (0-10)
[2024-06-18 04:46] LABS: Procalcitonin 0.18 ng/mL (0-0.5)
[2024-06-18 05:10] LABS: Estmated Average Glucose 97
[2024-06-18] MEDS: thiamine 100 mg/mL 2mL SDV IM (06:10)
[2024-06-18] MEDS: HYDROmorphone 0.5 MG/0.5 ML INJ 0.4 MG IVP (06:10)
[2024-06-18 06:46] LABS: Amphetamines Screen Urine Negative (Negative); Barbiturates Screen Urine Negative (Negative); Benzodiazepines Screen Urine Negative (Negative); Cocaine Screen Urine Negative (Negative); Opiate Screen Urine Positive (Negative); PCP Screen Urine Positive (Negative); THC Screen Urine Negative (Negative)
[2024-06-18] MEDS: LORazepam 2 mg/mL INJ 1 mL IVP ×3 (06:47→13:33)
--- NOTE | 2024-06-18 07:31 | PC.NURSE ---
Patient was sleeping and woke with a scream. Patient had hit his right stump on bedside table. Patient broke what appears to be a blood blister on right lateral aspect just below knee. No dressing in place prior to this. Observed dark red skin with multiple other blister , stitches and adaptic applied to the stitches. Cleaned site with normal saline. Applied 2 abd pads for cushioning and wrapped with kerlix. Patient has been medicated for pain and CIWA. Patient is pale and shaking with pain to right amputation. Informed Dr Bates. Will continue to monitor.
--- NOTE | 2024-06-18 08:01 | P.CONIM_ITS ---
Providers/Reason For Consult 2 Consulting Physician/Specialty*: Hospitalist Reason for Consult*: Evaluation of recent BKA done at outside hospital Attending Physician: Daryl Mendez MD Primary Care Provider: Juwan Mishra APRN History of Present Illness History of Present Illness Trevor Martin is a 48 year old male who had a right below the knee amputation done for nonhealing wound on his leg. Operation was done 1 week ago. He recently saw his surgeon in [place] on Saturday. He is scheduled to follow- up with his surgeon in the future. Review of Systems 2 Const: Denies: fever(s) Eyes: Denies: change in vision ENMT: Denies: throat pain Card: Denies: chest pain Resp: Denies: dyspnea Skin/Breast: Reports: rash, erythema, skin tenderness and skin swelling Medications/Allergies Home Medications ?Medication ?Instructions ?Recorded ?Confirmed ?Last Taken ?Type venlafaxine 225 mg tablet,extended 225 mg PO QAM 09/1006/18/24 06/14/24 History release 24 hr oxycodone-acetaminophen 7.5 mg-325 1 tab PO Q4H PRN pa in #60 tabs 06/13/24 06/18/24 06/14/24 Rx mg tablet (Percocet) cyclobenzaprine 10 mg tablet 10 mg PO TID 06/18/24 Unknown History hydromorphone 4 mg tablet 4 mg PO Q3H 06/18/24 5 Unknown History Allergies Allergy/AdvReac Type Severity Reaction Status Date / Time atomoxetine (From Strattera) Allergy ADR-Shakine Verified 06/17/24 23:20 ss escitalopram (From Lexapro) Allergy Unknown Verified 06/17/24 23:20 Current Medications Generic Name Dose Route Start Last Admin Trade Name Freq PRN Reason Stop Dose Admin Lorazepam 2 mg 06/18/24 05:18 06/18/24 06:47 Lorazepam 2 Mg/Ml Inj 1 Ml IVP 2 mg PRN PRN Administration WITHDRAWAL Protocol PFSH Acute 2 PFSH: Medical History Alcohol abuse No significant past medical history Surgical History No significant past surgical history Vitals/I&O/Wt Last Vital Signs Temp 97.9 F 06/18/24 07:09 Pulse 113 H 06/18/24 07:09 Resp 20 H 06/18/24 07:09 BP 158/104 06/18/24 07:09 Pulse Ox 97 06/18/24 07:09 O2 Del Method Nasal Cannula 06/18/24 07:09 O2 Flow Rate 2 06/18/24 07:09 06/17/24 06/18/24 06/18/24 22:59 06:59 14:59 Intake Total 1250 / 1250 Balance 1250 / 1250 Weight last 48 hrs Weight 271 lb 8 oz Weight 265 lb Physical Exam 2 Narrative: There is swelling of the extremity at the stump location. There is some redness and bruising. Stitches are in place. Has an abrasion where he just hit it on the table by accident. CT scan does not show any fluid collection. Does show swelling. As would be expected postoperatively 1 week. Data 06/18/24 00:38 06/18/24 00:38 Micro: Microbiology 06/18/24 00:57 Blood Culture - Preliminary Blood SPECIMEN COLLECTED 06/18/24 01:09 Blood Culture - Preliminary Blood SPECIMEN COLLECTED A&P Assessment and plan (1) Post-operative pain: Patient is 1 week out from the below the knee amputation done at an outside facility in [facility]. At this point I do not see any surgical indications to do anything. Would recommend he follows up with his surgeon in [place]. PDMP PDMP Reviewed: Not Reviewed Coding Level of Care Code Acute Code for Chg Fwd Diagnoses Post-operative pain G89.18
[2024-06-18] MEDS: gabapentin 300 mg Capsule PO (08:18)
[2024-06-18] MEDS: multivitamin therapeutic Tablet 1 TAB PO (08:18)
[2024-06-18] MEDS: doxycycline 100 mg Tablet PO ×2 (08:18→17:32)
[2024-06-18] MEDS: folic acid 1 mg Tablet PO (08:18)
[2024-06-18] MEDS: methocarbamol 750 mg Tablet PO ×4 (08:18→20:17)
[2024-06-18] MEDS: thiamine 100 mg Tablet PO (08:18)
--- NOTE | 2024-06-18 09:19 | P.MISC_ITS ---
Miscellaneous Note Note: Patient seen evaluated this morning. He was admitted in bed by clinical associate. Endorses 10 out of 10 pain. Spoke with orthopedic surgery, if he needs any intervention he needs to back to [place]. I do not see that he needs any intervention from my standpoint. There is some postop cellulitis currently on oral antibiotics. Postop pain is expected. Will initiate gabapentin. Continue IV hydromorphone for today. Start alternative schedule muscle relaxer. On hydration. He can start back anti-inflammatory NSAID after creatinine improves. Anticipate discharge tomorrow.
[2024-06-18] MEDS: PHENobarbital 130 mg/mL SDV 1 mL IVP (10:17)
--- NOTE | 2024-06-18 12:36 | PC.NURSE ---
Per Dr Mendez. Patient not improving with current medications. MD placed transfer orders to ICU. Report called to DALIA Brian. Patient taken by bed with mother at side. Explained to mom the process and need for transfer. She verbalized compete understanding.
[2024-06-18] MEDS: dexmedeTOMIDine 0.9 % NaCL 400 MCG/100 ML PREMIX 6.16 MCG IV (12:38)
[2024-06-18] MEDS: PHENobarbital 130 mg/mL SDV 1 mL 60 MG IVP (12:41)
[2024-06-18] MEDS: cefepime 2,000 mg SDV 2000 MG IVP ×2 (13:22→20:17)
[2024-06-18] MEDS: dexmedeTOMIDine 0.9 % NaCL 400 MCG/100 ML PREMIX 24.63 MCG IV (16:05)
[2024-06-18] MEDS: enoxaparin 40 mg/0.4 mL Syringe SUBCUT (16:05)
--- NOTE | 2024-06-18 16:32 | PC.NURSE ---
1235 -- Received from CSU via bed with nurse at bedside. Placed on candy dipper hand. HR 110-120, B/P elevated, very anxious, profusely sweating, hallucinating. Able to redirect and is oriented to person and time. Right lower leg amputation site open to air with bloody drainage noted and 1 popped blood blister and 2 intact blood blisters. Precedex drip started as ordered. 1320 -- Continues to hallucinate and attempt to get out of bed with profuse sweating. Titrating precedex drip, ativan given per PAUL. Mother at bedside. Placed on patients home CPAP per Dr. Mendez order due to sleep apnea. Patient attempting to get out of bed and becomes upset when told that he can not get out of bed due to the large number of medications he has been give. other becomes upset and states that this nurse is upsetting the patient. Explained to patient and mother that he is a high fall risk and I have to keep him in the bed. 1446 -- Notified Dr. Mendez that despite being on patients home CPAP he continues to have periods of apnea with O2 sats decreasing into the low 80's. Order given to place on Bipap. 1500 -- Placed on Bipap with 40% FIO2 per RT. O2 saturation increased to 97% and patient relaxed. 1615 -- Blood pressure 83/48 (59). Precedex drip decreased. Dr. Mendez notified. No new orders given at preset time, states if it continues to trend down we will given a fluid bolus. 1630 -- blood pressure 96/52(66), continues to rest comfortably.
[2024-06-18] MEDS: pregabalin 100 mg Capsule PO (17:32)
[2024-06-18] MEDS: sennosides-docusate Tablet 2 TAB PO (17:32)
[2024-06-18] MEDS: dexmedeTOMIDine 0.9 % NaCL 400 MCG/100 ML PREMIX 18.47 MCG IV (20:33)
[2024-06-19] VITALS (34 sets, daily range): BP systolic 97–156; BP diastolic 54–92; PULSE 70–105; RESP 14–25; TEMP 36.9–37.1; O2SAT 91–100; BMI 33.3
[2024-06-19] MEDS: dexmedeTOMIDine 0.9 % NaCL 400 MCG/100 ML PREMIX 18.47 MCG IV (02:21)
[2024-06-19] MEDS: HYDROmorphone 0.5 MG/0.5 ML INJ 1 MG IVP (03:57)
[2024-06-19] MEDS: cefepime 2,000 mg SDV 2000 MG IVP ×2 (04:00→13:23)
[2024-06-19 05:33] LABS: Anion Gap 16.5 (5-19); Blood Urea Nitrogen 19 mg/dL (6-20); Calcium 8.4 mg/dL (8.5-10.5); Carbon Dioxide 22 mmol/L (22-29); Chloride 103 mmol/L (98-107); Creatinine Clr Calc Pharmacy 127.7267; Glomerular Filtration Rate 79.8 mL/min (90-130); Glucose 68 mg/dL (65-115); Magnesium 2.2 mg/dL (1.7-2.3); Osmolality Calculated 285 mOsm/kg (285-295); Potassium 4.5 mmol/L (3.5-5.1); Sodium 137 mmol/L (136-145)
[2024-06-19] MEDS: venlafaxine ER (24HR) 75 mg Capsule 225 MG PO (06:01)
[2024-06-19 06:23] LABS: Glucose Point of Care 75 mg/dL (70-110)
[2024-06-19] MEDS: dexmedeTOMIDine 0.9 % NaCL 400 MCG/100 ML PREMIX 15.39 MCG IV (08:00)
--- NOTE | 2024-06-19 08:19 | P.PN_ITS ---
Subjective 2 Subjective: Per report, patient had an okay night. He is on BiPAP this morning and sleeping comfortably. Reportedly had not slept in some time per collateral information from family. Remains on Precedex drip. Medications: Reviewed: Yes Vitals/I&O/Wt Last Vital Signs Temp 98.8 F 06/19/24 04:00 Pulse 91 06/19/24 06:00 Resp 17 06/19/24 06:00 BP 97/61 06/19/24 06:00 Pulse Ox 95 06/19/24 06:00 O2 Del Method Nasal Cannula 06/19/24 06:00 O2 Flow Rate 3 06/19/24 06:00 FiO2 30 06/19/24 01:00 06/18/24 06/19/24 06/19/24 22:59 06:59 14:59 Intake Total 149.769 / 1280.957 220 / 1500.957 Output Total 575 / 725 1300 / 2025 Balance -425.231 / 555.957 -1080 / -524.043 Weight last 48 hrs Weight 121 kg Weight 123.15 kg Weight 120.202 kg Physical Exam 2 Narrative: General: Patient is sleeping. On BiPAP. Head: Normocephalic. Eyes closed. Neck: No JVD. Cardiovascular: Regular rate. Normotensive. Normal peripheral perfusion. Lungs: Symmetric chest rise. Normal respiratory rate. On BiPAP. Skin: No jaundice. No rashes. Abdomen: Not distended. Genito Urinary: Hurd catheter. Rectal: Rectal exam not performed since no symptoms indicated blood loss. Extremities: Status post right BKA. Right BKA stump is erythematous, swollen, and tender to palpation. Neurological: No myoclonus. Urinary Catheter Management: Hurd: Cath Placed During This Visit: yes Reason for Continuing Indwelling Catheter: Accurate Measurement of Urinary Output in Critically Ill Patients Urinary Catheter Date of Insertion: 06/18/24 Urinary Catheter Time of Insertion: 19:00 Data 06/18/24 00:38 06/19/24 04:24 Micro: Microbiology 06/18/24 00:57 Blood Culture - Preliminary Blood NEGATIVE TO DATE 06/18/24 01:09 Blood Culture - Preliminary Blood NEGATIVE TO DATE A&P Assessment and plan (1) Delirium tremens: Delirium tremens with severe encephalopathy Patient remains in severe delirium tremens He is withdrawing from alcohol at some, possibly superimposed with other drug withdrawal Continue Precedex drip Continue CIWA protocol Aspiration precautions Seizure precautions Continue supportive care (2) Sepsis: Severe sepsis present on admission Source: Right stump cellulitis SIRS: Leukocytosis, tachycardia Endorgan damage: Acute kidney injury, severe metabolic encephalopathy IV fluid boluses were not administered due to already severe edema of right stump Monitoring hemodynamics Follow cultures Continue broad-spectrum antibiotics (3) Suicidal ideation: Patient was poorly suicidal upon presentation to ED when he was intoxicated with alcohol Is severely encephalopathic currently Likely need psychiatry evaluation when medically appropriate Plan Status post right BKA: Continue wound care. Continue multimodal pain control with hopes to wean IV analgesics soon. Will start oral Mobic given TAVON is resolved. Continue other analgesics. Will need close follow-up after discharge with surgeon. TAVON: Resolved. Renal function back to normal. DVT prophylaxis: Lovenox PDMP PDMP Reviewed: Not Reviewed Attestations 2 Medical Necessity Statement*: Patient requires ongoing hospitalization due to delirium tremens requiring ICU level of care for continuous Precedex drip and aggressive treatment of alcohol withdrawal; patient requires ongoing hospitalization for treatment of sepsis including following of cultures and IV antibiotics. Critical Care Time: The high probability of a clinically significant, sudden or life threatening deterioration of the patient's cardiovascular, circulatory system(s) required my full and direct attention, intervention and personal management. The critical care time is as shown. This time is in addition to time spent performing any reported procedures but includes the following: [x] Data and vital sign review and interpretation [x] Patient assessment, examination and intervention [x] Documentation [x] Medication orders and management Critical Care Time (min): 35 Coding Level of Care Code Acute Code for [facility] Diagnoses Delirium tremens F10.931 Sepsis A41.9 Suicidal ideation R45.851
[2024-06-19] MEDS: meloxicam 7.5 mg tablet 15 MG PO (08:44)
[2024-06-19] MEDS: methocarbamol 750 mg Tablet PO ×2 (08:44→13:23)
[2024-06-19] MEDS: pregabalin 100 mg Capsule PO (08:44)
[2024-06-19] MEDS: folic acid 1 mg Tablet PO (08:44)
[2024-06-19] MEDS: sennosides-docusate Tablet 2 TAB PO (08:44)
[2024-06-19] MEDS: thiamine 100 mg Tablet PO (08:44)
[2024-06-19] MEDS: multivitamin therapeutic Tablet 1 TAB PO (08:44)
[2024-06-19] MEDS: doxycycline 100 mg Tablet PO (08:44)
--- NOTE | 2024-06-19 10:21 | PC.NURSE ---
Patient alert after resting, AO x4 follows commands asked to speak [facility] dr. gordon per Dr. Mendez to turn off precedex and if the day goes well to possibly dc home
--- NOTE | 2024-06-19 13:30 | PM.DCS ---
Discharge Providers Date of Admission: 06/19/24 09:27 Date of Discharge: June 19, 2024 Attending Provider at Admission: Darrius Bear MD Attending Provider at Discharge: Daryl Mendez MD Consults: Orthopedics surgery Primary Care Provider: Juwan Mishra APRN Diagnoses at Discharge Discharge Diagnosis (1) Delirium tremens: Status: Resolved (2) Sepsis: Status: Inactive (3) Suicidal ideation: Status: Deleted Reason for Visit Reason for Visit: R amputaion Pain Hospital Course Hospital Course Trevor Martin is a 48-year-old male with a past medical history significant for recent below the knee amputation last , alcohol use disorder with abuse, tobacco use disorder, depression, legal issues, and avascular necrosis who presented with severe right stump pain, found to have sepsis secondary to right stump cellulitis. He was treated with broad-spectrum antibiotics, IV fluids and supportive care. Cultures remain negative. Orthopedic surgery evaluated leg no further surgical intervention was warranted at this time. His infection as well as signs of improvement. He was rotated to oral antibiotics at discharge. His pain regiment was titrated as per discharge medication reconciliation below. His pain and symptoms significantly improved. He is to follow-up closely with his surgeon for ongoing management of his wound, wound infection, and pain control. On presentation, he was found to have alcohol intoxication. He developed severe delirium tremens which required transfer to the intensive care unit. He was treated with CIWA protocol, phenobarbital, and Precedex drip. Delirium tremens resolved with treatment. Alcohol intoxication and withdrawal symptoms resolved. While intoxicated and severely delirious, he expressed desire to return to longer live due to the pain. After severe encephalopathy and delirium tremens resolved, patient did not recall stating these events. He was found not to be suicidal after his encephalopathy resolved. He was noted to have significant sleep apnea while on his home CPAP in the setting of encephalopathy. Patient was educated to further discuss sleep apnea evaluation after complete recovery with his PCP. His symptoms significantly improved. He recovered quicker than expected. Patient is discharging to home with family stable condition. He is to continue follow-up with his outpatient providers for ongoing care. Physical Exam Urinary Catheter Management: Hurd: Cath Placed During This Visit: yes Reason for Continuing Indwelling Catheter: Accurate Measurement of Urinary Output in Critically Ill Patients Urinary Catheter Date of Insertion: 06/18/24 Urinary Catheter Time of Insertion: 19:00 Discharge Data Studies Completed and Pending Completed Studies During Hospitalization Category Date Time Status CT lower leg RT wo con* [id number] Stat Cat Scan 06/18/24 01:50 Completed Pending at discharge Category Date Time Status Blood Culture Stat Lab 06/18/24 00:57 Results CBC Auto Diff [Complete Blood Count w/Auto] AM LABS Lab 06/20/24 04:00 Ordered Magnesium AM LABS Lab 06/20/24 04:00 Ordered Renal Function Panel AM LABS Lab 06/20/24 04:00 Ordered Wound Culture Stat Lab 06/18/24 01:18 Received Radiology Impressions Lower Extremity CT 06/18/24 01:50 IMPRESSION: 1. Status post [id number] amputation of the right lower extremity. 2. Soft tissues of the right lower extremity demonstrate superficial stranding and edema, most prominent along the lateral aspect of the thigh and extending to the knee area. No distinct focal drainable fluid collection. Laboratory Results WBC 12.25 10^3/uL (3.29-11.43) H 06/18/24 00:38 RBC 4.25 10^6/uL (3.85-5.65) 06/18/24 00:38 Hgb 12.50 g/dL (11.27-16.99) 06/18/24 00:38 Hct 38.0 % (37-53) 06/18/24 00:38 MCV 89.4 fl (82-101) 06/18/24 00:38 MCH 29.4 pg (27-33) 06/18/24 00:38 MCHC 32.9 g/dL (30-55) 06/18/24 00:38 RDW 13.3 % (12.1-15.1) 06/18/24 00:38 Plt Count 273 10^3/cmm (157-399) 06/18/24 00:38 MPV 9.3 fL (7.4-10.4) 06/18/24 00:38 Neut % (Auto) 76.8 % 06/18/24 00:38 Lymph % (Auto) 8.7 % 06/18/24 00:38 [place] % (Auto) 10.9 % 06/18/24 00:38 Eos % (Auto) 3.0 % 06/18/24 00:38 Baso % (Auto) 0.3 % 06/18/24 00:38 Neut # (Auto) 9.41 10^3/uL (1.8-7.7) H 06/18/24 00:38 Lymph # (Auto) 1.1 10^3/uL (0.8-4.8) 06/18/24 00:38 [place] # (Auto) 1.3 10^3/uL (0.2-0.9) H 06/18/24 00:38 Eos # (Auto) 0.4 10^3/uL (0.0-0.8) 06/18/24 00:38 Baso # (Auto) 0.0 10^3/uL (0.0-0.1) 06/18/24 00:38 Nucleated RBC % (auto) 0 % 06/18/24 00:38 Nucleated RBCs # 0.0 /100WBC 06/18/24 00:38 D-Dimer 1.38 ug/mLFEU (0-0.59) H 06/18/24 00:38 Sodium 137 mmol/L (136-145) 06/19/24 04:24 Potassium 4.5 mmol/L (3.5-5.1) 06/19/24 04:24 Chloride 103 mmol/L (98-107) 06/19/24 04:24 Carbon Dioxide 22 mmol/L (22-29) 06/19/24 04:24 Anion Gap 16.5 (5-19) 06/19/24 04:24 BUN 19 mg/dL (6-20) 06/19/24 04:24 Creatinine 1.0 mg/dL (0.7-1.2) 06/19/24 04:24 GFR Calculation 79.8 mL/min (90-130) L 06/19/24 04:24 Glucose 68 mg/dL (65-115) 06/19/24 04:24 POC Glucose 75 mg/dL (70-110) 06/19/24 06:00 Estimat Average Glucose 97 06/18/24 00:38 Hemoglobin A1c 5.0 % (4.0-6.0) 06/18/24 00:38 Calculated Osmolality 285 mOsm/kg (285-295) 06/19/24 04:24 Calcium 8.4 mg/dL (8.5-10.5) L 06/19/24 04:24 Magnesium 2.2 mg/dL (1.7-2.3) 06/19/24 04:24 C-Reactive Protein 70.0 mg/L (0.0-4.9) H 06/19/24 04:24 Procalcitonin 0.18 ng/mL (0-0.5) 06/18/24 00:38 Urine Opiates Screen Positive ng/mL (Negative) H 06/18/24 06:22 Ur Barbiturates Screen Negative ng/mL (Negative) 06/18/24 06:22 Ur Phencyclidine Scrn Positive ng/mL (Negative) H 06/18/24 06:22 Ur Amphetamines Screen Negative ng/mL (Negative) 06/18/24 06:22 U Benzodiazepines Scrn Negative ng/mL (Negative) 06/18/24 06:22 Urine Cocaine Screen Negative ng/mL (Negative) 06/18/24 06:22 U Marijuana (THC) Screen Negative ng/mL (Negative) 06/18/24 06:22 Ethyl Alcohol 38 mg/dL (0-10) H 06/18/24 00:38 Vitals Last Vital Signs Temp 98.8 F 06/19/24 04:00 Pulse 89 06/19/24 13:00 Resp 16 06/19/24 12:00 BP 155/92 06/19/24 13:00 Pulse Ox 93 06/19/24 13:00 O2 Del Method Room Air 06/19/24 09:20 O2 Flow Rate 3 06/19/24 06:00 FiO2 30 06/19/24 09:18 Discharge Plan Discharge Patient Disposition: Home Condition: Stable Prescriptions: New sennosides-docusate sodium [Stool Softener-Laxative] 8.6-50 mg Tablet 2 tab PO BID 30 Days Qty: 120 0RF doxycycline monohydrate 100 mg Tablet 100 mg PO BID 10 Days Qty: 20 0RF methocarbamol 750 mg Tablet 750 mg PO QID 30 Days Qty: 120 0RF pregabalin 100 mg Capsule 100 mg PO BID 30 Days Qty: 60 0RF cefdinir 300 mg capsule 300 mg PO BID 10 Days Qty: 20 0RF meloxicam 7.5 mg Tablet 15 mg PO DAILY 30 Days Qty: 30 0RF Continued venlafaxine 225 mg Tablet Extended Release 24hr 225 mg PO QAM oxycodone-acetaminophen [Percocet] 7.5-325 mg tablet 1 tab PO Q4H PRN (Reason: pain) Qty: 60 0RF cyclobenzaprine 10 mg tablet 10 mg PO TID hydromorphone 4 mg tablet 4 mg PO Q3H Discharge Orders: Discharge Order (Routine); Ordered 06/19/24 Ordered By: Daryl Mendez Referrals: Juwan Mishra APRN [Primary Care Provider] - 4-7 days Discharge Diet: Advance as tolerated and Usual diet Discharge Activity: Increase activity as tolerated and Cpap/Bipap as instructed Patient Instructions: Opioid Safety Activity Restrictions/Additional Instructions: Take medications as prescribed. No operating machinery while on pain medications. Monitor for constipation. Follow up with your surgeon for ongoing management of post-op wound infection and post-op pain control. Recommend complete cessation of alcohol. Alcohol with slow your wound healing and recovery. Follow up with PCP within 7 days. You were noted to have significant sleep apnea during your hospitalization while on CPAP. Recommend discussing further work up such as repeating sleep study and/or titration study. Keep and attend scheduled appointment with primary provider Discharge Attestations Time Spent in Discharge Care*: greater than 30 min Quality Metrics Clinical Quality Measures [ No reported AMI, CVA or VTE this stay] Coding Level of Care Code Acute Code for [facility] Diagnoses Delirium tremens F10.931 Sepsis A41.9 Suicidal ideation R45.851
--- NOTE | 2024-06-19 15:09 | PC.NURSE ---
patient c/o of pain, possible d/c home this evening received t.o. from Dr. Mendez for hydromorphone 4 mg po once
--- NOTE | 2024-06-19 15:37 | PC.NURSE ---
patient informed this nurse he has an appointment with primary provider on 06/28/24
== END 2024-06-19 15:44 | disposition home health service (06) | DRG 871 ==
LOC: ER 06-18 04:23 → CSU 06-18 05:27 → ICU 06-18 12:38
PROVIDERS: Admitting Provider Internal Medicine; Emergency Provider Emergency Medicine; PCP Nurse Practitioner Family; Visit Provider Internal Medicine
DX: A41.9 Sepsis, unspecified organism (principal); G93.41 Metabolic encephalopathy; F10.121 Alcohol abuse with intoxication delirium; R45.851 Suicidal ideations; T87.43 Infection of amputation stump, right lower extremity; T81.49XA Infection following a procedure, other surgical site, initial encounter; L03.115 Cellulitis of right lower limb; N17.9 Acute kidney failure, unspecified; F10.139 Alcohol abuse with withdrawal, unspecified; R65.20 Severe sepsis without septic shock; Y90.1 Blood alcohol level of 20-39 mg/100 ml; R25.1 Tremor, unspecified; Z89.511 Acquired absence of right leg below knee; F10.10 Alcohol abuse, uncomplicated; F17.210 Nicotine dependence, cigarettes, uncomplicated; F32.A Depression, unspecified; G47.33 Obstructive sleep apnea (adult) (pediatric); Z79.891 Long term (current) use of opiate analgesic; E86.0 Dehydration; G89.18 Other acute postprocedural pain
CPT/HCPCS: 36415; 36416; 51702; 73700; 80048; 80306; 80307; 82962; 83036; 83735; 84145; 85025; 85378; 86140; 87040; 87070; 94660; 96365; 96372; 96375; 96376; 99285; G0378; J0692; J1171; J1650; J1885; J2060; J2405; J2560; J3370; J3411; J7030; J7050; J9999

== ENCOUNTER 2024-06-24 18:26 | Emergency (ER) | payer OTHER, SELFPAY ==
[2024-06-24 18:31] VITALS: BP 172/74; PULSE 104; RESP 19; TEMP 37.2; O2SAT 97; BMI 33.1
--- NOTE | 2024-06-24 19:34 | ED_ITS ---
HPI - Extremity Problem General: Chief complaint: Extremity Injury, Lower Stated complaint: leg pain Time Seen by Provider: 06/24/24 18:50 History of Present Illness: Next week for recheck. This patient is a 48-year-old white male well-known to me. I have seen him several times previously for postoperative pain. Patient had a right BKA done about 2 weeks ago. States he had pain medications [facility] through the [facility] but it takes about a week to get them so he needs some medication to bridge that gap. Related Data Home Medications ?Medication ?Instructions ?Recorded ?Confirmed venlafaxine 225 mg tablet,extended 225 mg PO QAM 09/1006/18/24 release 24 hr cyclobenzaprine 10 mg tablet 10 mg PO TID 06/18/24 hydromorphone 4 mg tablet 4 mg PO Q3H 06/18/24 5 Previous Rx's ?Medication ?Instructions ?Recorded oxycodone-acetaminophen 7.5 mg-325 1 tab PO Q4H PRN pa in #60 tabs 06/13/24 mg tablet (Percocet) cefdinir 300 mg capsule 300 mg PO BID 10 days #20 ca ps 06/19/24 doxycycline monohydrate 100 mg 100 mg PO BID 10 days # 20 tabs 06/19/24 tablet meloxicam 7.5 mg tablet 15 mg (2 x 7.5 mg) PO DAILY 30 06/19/24 days #30 tabs methocarbamol 750 mg tablet 750 mg PO QID 30 days #120 tabs 06/19/24 pregabalin 100 mg capsule 100 mg PO BID 30 days #60 ca ps 06/19/24 sennosides 8.6 mg-docusate sodium 2 tab PO BID 30 days #120 tabs 06/19/24 50 mg tablet (Stool Softener-Laxative) oxycodone-acetaminophen 5 mg-325 1 tab PO Q4H PRN pain #30 tabs 06/24/24 mg tablet (Percocet) Allergies Allergy/AdvReac Type Severity Reaction Status Date / Time atomoxetine (From Strattera) Allergy ADR-Shakine Verified 06/17/24 23:20 ss escitalopram (From Lexapro) Allergy Unknown Verified 06/17/24 23:20 Review of Systems General: Reports: 10 or more systems reviewed and unremarkable except in HPI and below Musc: Reports: other (Right lower leg pain.) PFSH ED PFSH: Medical History Alcohol abuse No significant past medical history Surgical History No significant past surgical history Physical Exam Const: COMMON NORMALS: patient oriented x3 and no limitations GENERAL APPEARANCE: cooperative HENMT: COMMON NORMALS: normocephalic, atraumatic, Normal nasal mucous membranes and turbinates present, moist oral mucous membranes and oropharynx normal HEAD & SCALP: normal to inspection, normocephalic and atraumatic FACE & SINUS: normal facial exam NOSE: Normal nasal mucous membranes and turbinates present Eye: COMMON NORMALS: Equal, round and reactive pupils present, EOMs intact bilaterally and conjunctivae normal GENERAL EYE: appearance normal, both eyes and all related structures CONJUNCTIVA: Yes conjunctivae normal PUPIL: Yes Equal, round and reactive pupils present Neck/C-Spine: COMMON NORMALS: supple and no JVD Chest: COMMONS NORMALS: normal inspection of the chest Resp: COMMON NORMALS: normal respiratory effort and clear to auscultation bilaterally AUSCULTATION: clear to auscultation bilaterally Cardio: COMMON NORMALS: no JVD, regular rate, regular rhythm, No gallops present (Cardio), No murmurs present (Cardio) and No rub (Cardio) RATE: regular rate RHYTHM: regular rhythm GI: COMMON NORMALS: Normal to inspection, nondistended, normoactive bowel sounds present, Soft to palpation and non-tender AUSCULTATION: Yes normoactive bowel sounds PALPATION: Yes Soft to palpation : COMMON NORMALS: Yes no CVA tenderness BLADDER/KIDNEY EXAM: Yes no CVA tenderness Back/Pelvis: COMMON NORMALS: no CVA tenderness and thoracic and lumbar spine normal to inspection Extremity: NARRATIVE EXTREMITY EXAM: Right BKA. Neuro: COMMON NORMALS: patient oriented x3 and CN's II-XII intact bilaterally Psych: COMMON NORMALS: mental status grossly normal, Normal thought process present and cooperative THOUGHT PROCESS: Normal thought process present Skin: COMMON NORMALS: no rashes or lesions noted, turgor normal and no jaundice GENERAL SKIN EXAM: no rashes or lesions noted and turgor normal Course Vital Signs: Vital signs: Vital Signs Temperature 98.9 F 06/24/24 18:31 Pulse Rate 104 H 06/24/24 18:31 Respiratory Rate 19 H 06/24/24 18:31 Blood Pressure 172/74 06/24/24 18:31 Pulse Oximetry 97 06/24/24 18:31 Oxygen Delivery Me thod Room Air 06/24/24 18:31 MDM - Extremity (Nontraumatic) Medical Decision Making Patient was given injections of Dilaudid and Toradol in the emergency department. He was discharged in stable condition with prescription for Percocet. Follow-up with his pain specialist and surgeon. No radiology studies performed this visit Discharge Plan Discharge Patient Disposition: Home Clinical Impression: Post-operative pain Condition: Stable Prescriptions: New oxycodone-acetaminophen [Percocet] 5-325 mg tablet 1 tab PO Q4H PRN (Reason: pain) Qty: 30 0RF No Action venlafaxine 225 mg Tablet Extended Release 24hr 225 mg PO QAM oxycodone-acetaminophen [Percocet] 7.5-325 mg tablet 1 tab PO Q4H PRN (Reason: pain) Qty: 60 0RF cyclobenzaprine 10 mg tablet 10 mg PO TID hydromorphone 4 mg tablet 4 mg PO Q3H sennosides-docusate sodium [Stool Softener-Laxative] 8.6-50 mg Tablet 2 tab PO BID 30 Days Qty: 120 0RF doxycycline monohydrate 100 mg Tablet 100 mg PO BID 10 Days Qty: 20 0RF methocarbamol 750 mg Tablet 750 mg PO QID 30 Days Qty: 120 0RF pregabalin 100 mg Capsule 100 mg PO BID 30 Days Qty: 60 0RF cefdinir 300 mg capsule 300 mg PO BID 10 Days Qty: 20 0RF meloxicam 7.5 mg Tablet 15 mg PO DAILY 30 Days Qty: 30 0RF Discharge Orders: Discharge ED (Routine); Ordered 06/24/24 Ordered By: Corby Burk Referrals: Juwan Mishra APRN [Primary Care Provider] - Patient Instructions: Opioid Safety, Pain Management Print Language: Upper Sorbian Coding Level of Care Code ED Bus And Sys Integration Senior Manager for Chris Georges
[2024-06-24] MEDS: ondansetron 2 mg/ML SDV 2 mL 4 MG IVP (19:52)
[2024-06-24] MEDS: ketorolac 30 mg/mL INJ IVP (19:52)
[2024-06-24] MEDS: HYDROmorphone 0.5 MG/0.5 ML INJ 1 MG IVP (19:52)
[2024-06-24 20:01] VITALS: PULSE 106; RESP 16; O2SAT 99
== END 2024-06-24 20:03 | disposition home or self-care (01) ==
PROVIDERS: Emergency Provider Emergency Medicine; PCP Nurse Practitioner Family
DX: G89.18 Other acute postprocedural pain (principal)
CPT/HCPCS: 96374; 96375; 99284; J1171; J1885; J2405

== ENCOUNTER 2024-06-27 20:22 | Emergency (ER) | payer OTHER, SELFPAY ==
[2024-06-27 20:23] VITALS: BP 193/108; PULSE 161; RESP 22; TEMP 36.7; O2SAT 94; BMI 32.0
--- NOTE | 2024-06-27 21:11 | XRR_ITS ---
PROCEDURE INFORMATION: Exam: XR Left Foot Exam date and time: 06/27/2024 9:39 PM Age: 48 years old Clinical indication: Injury or trauma; Fall; Blunt trauma; Foot; Left; Additional info: Fall foot injury TECHNIQUE: Imaging protocol: Radiologic exam of the left foot. Views: 3 or more views. COMPARISON: No relevant prior studies available. FINDINGS: Bones/joints: Calcaneal osteophytes. No acute fracture. No dislocation. Soft tissues: No significant soft tissue swelling. XR/XR foot LT min 3V* [id number] IMPRESSION: No acute fracture or dislocation.
--- NOTE | 2024-06-27 21:11 | XRR_ITS ---
PROCEDURE INFORMATION: Exam: XR Right Tibia and Fibula Exam date and time: 06/27/2024 9:39 PM Age: 48 years old Clinical indication: Injury or trauma; Fall; Blunt trauma; Lower leg; Prior surgery; Surgery date: <1 month; Surgery type: Amputation right leg mid-shaft; Additional info: Fall post amputation TECHNIQUE: Imaging protocol: Radiologic exam of the right tibia and fibula. Views: 2 views. COMPARISON: CT lower leg RT wo con* [id number] 06/18/2024 2:03 AM FINDINGS: Bones/joints: Status post right bdvxw-hvo-susz amputation. No acute fracture. No dislocation. Right knee joint spaces are well preserved. Soft tissues: Soft tissue thickening at the amputation stump appear similar to prior examination. No subcutaneous emphysema. XR/XR tibia fibula RT 2V [id number] IMPRESSION: Status post right ycsgv-aai-offz amputation without evidence of acute fracture or dislocation.
[2024-06-27] MEDS: HYDROmorphone 1 mg/mL INJ 1ml 2 MG IM (21:18)
[2024-06-27] MEDS: ondansetron 4 MG Tablet PO (21:19)
[2024-06-27 21:29] VITALS: PULSE 150; RESP 25; O2SAT 96
[2024-06-27] MEDS: ketorolac 30 mg/mL INJ 60 MG IM (22:17)
[2024-06-27] MEDS: HYDROmorphone 0.5 MG/0.5 ML INJ 2 MG IM (22:17)
[2024-06-27 22:30] VITALS: BP 158/89; PULSE 140; RESP 23; O2SAT 98
[2024-06-27 23:16] VITALS: BP 154/79; PULSE 102; O2SAT 97
--- NOTE | 2024-06-28 01:39 | ED_ITS ---
HPI - Extremity Problem General: Chief complaint: Extremity Injury, Lower Stated complaint: L leg broke the bones Time Seen by Provider: 06/27/24 20:35 History of Present Illness: 48-year-old male patient with a 2.5-week ago history of below-knee amputation on the right. This was done at an outside facility. He presents after a fall at home, saying that he stumbled on the stairs, went forward, and landed directly on his stump on a hard floor. He is complaining of excruciating pain, worse in any pain he had postoperatively. He has some blood from his incision as well. Related Data Home Medications ?Medication ?Instructions ?Recorded ?Confirmed venlafaxine 225 mg tablet,extended 225 mg PO QAM 09/1006/18/24 release 24 hr cyclobenzaprine 10 mg tablet 10 mg PO TID 06/18/24 hydromorphone 4 mg tablet 4 mg PO Q3H 06/18/24 5 Previous Rx's ?Medication ?Instructions ?Recorded oxycodone-acetaminophen 7.5 mg-325 1 tab PO Q4H PRN pa in #60 tabs 06/13/24 mg tablet (Percocet) cefdinir 300 mg capsule 300 mg PO BID 10 days #20 ca ps 06/19/24 doxycycline monohydrate 100 mg 100 mg PO BID 10 days # 20 tabs 06/19/24 tablet meloxicam 7.5 mg tablet 15 mg (2 x 7.5 mg) PO DAILY 30 06/19/24 days #30 tabs methocarbamol 750 mg tablet 750 mg PO QID 30 days #120 tabs 06/19/24 pregabalin 100 mg capsule 100 mg PO BID 30 days #60 ca ps 06/19/24 sennosides 8.6 mg-docusate sodium 2 tab PO BID 30 days #120 tabs 06/19/24 50 mg tablet (Stool Softener-Laxative) oxycodone-acetaminophen 5 mg-325 1 tab PO Q4H PRN pain #30 tabs 06/24/24 mg tablet (Percocet) Allergies Allergy/AdvReac Type Severity Reaction Status Date / Time atomoxetine (From Strattera) Allergy ADR-Shakine Verified 06/17/24 23:20 ss escitalopram (From Lexapro) Allergy Unknown Verified 06/17/24 23:20 [facility] ED PFS: Medical History Alcohol abuse No significant past medical history Surgical History No significant past surgical history Physical Exam Const: GENERAL APPEARANCE: cooperative and in distress ORIENTATION/CONSCIOUSNESS: Yes awake, Yes oriented to person, Yes oriented to place and Yes oriented to time HENMT: COMMON NORMALS: normocephalic HEAD & SCALP: normocephalic Chest: CHEST: Yes Symmetrical chest wall rise Resp: COMMON NORMALS: clear to auscultation bilaterally EFFORT & INSPECTION: Yes tachypneic and No respiratory distress AUSCULTATION: clear to auscultation bilaterally Cardio: COMMON NORMALS: regular rhythm RATE: tachycardic RHYTHM: regular rhythm Extremity: NARRATIVE EXTREMITY EXAM: Examination of the right lower extremity reveals soft tissue swelling of the BKA stump. There is some scant bleeding. Sutures are holding. Some bruising is present. No knee effusion. No deformity. Neuro: SENSORIUM/ORIENTATION: Yes oriented to person, Yes oriented to place and Yes oriented to time Course Vital Signs: Vital signs: Vital Signs Temperature 98.0 F 06/27/24 20:23 Pulse Rate 102 H 06/27/24 23:16 Respiratory Rate 23 H 06/27/24 22:30 Blood Pressure 154/79 06/27/24 23:16 Pulse Oximetry 97 06/27/24 23:16 Oxygen Delivery Me thod Room Air 06/27/24 20:23 MDM - Extremity (Nontraumatic) Medical Decision Making Patient is in obvious distress postinjury. He is shaking and pain. Sweating profusely. He is given 2 different injections of Dilaudid, 1 of Toradol, with increased pain control. He tells me that he has oxycodone tens at home. X-rays are negative for any fracture or dislocation. There is significant soft tissue swelling. Sutures are holding, but he does have some ruperto-incisional bleeding that is scant. Wound is redressed. He will be allowed discharge home now that his pain is under somewhat improved control. Significant ice will be required for pain control. Patient also mentioned that he stubbed his left small toe during the injury. X- rays negative of the left foot for injury. Lab Data Radiology Impressions Foot X-Ray 06/27/24 21:11 IMPRESSION: No acute fracture or dislocation. Tibia/Fibula X-Ray 06/27/24 21:11 IMPRESSION: Status post right bnuft-rhs-ndtr amputation without evidence of acute fracture or dislocation. All radiology interpretation(s) finalized by discharge Discharge Plan Discharge Patient Disposition: Home Clinical Impression: Contusion of lower leg, right, Post-operative pain Condition: Stable Prescriptions: No Action venlafaxine 225 mg Tablet Extended Release 24hr 225 mg PO QAM oxycodone-acetaminophen [Percocet] 7.5-325 mg tablet 1 tab PO Q4H PRN (Reason: pain) Qty: 60 0RF cyclobenzaprine 10 mg tablet 10 mg PO TID hydromorphone 4 mg tablet 4 mg PO Q3H sennosides-docusate sodium [Stool Softener-Laxative] 8.6-50 mg Tablet 2 tab PO BID 30 Days Qty: 120 0RF doxycycline monohydrate 100 mg Tablet 100 mg PO BID 10 Days Qty: 20 0RF methocarbamol 750 mg Tablet 750 mg PO QID 30 Days Qty: 120 0RF pregabalin 100 mg Capsule 100 mg PO BID 30 Days Qty: 60 0RF cefdinir 300 mg capsule 300 mg PO BID 10 Days Qty: 20 0RF meloxicam 7.5 mg Tablet 15 mg PO DAILY 30 Days Qty: 30 0RF oxycodone-acetaminophen [Percocet] 5-325 mg tablet 1 tab PO Q4H PRN (Reason: pain) Qty: 30 0RF Discharge Orders: Discharge ED (Routine); Ordered 06/27/24 Ordered By: Rojas Bell Referrals: Juwan Mishra APRN [Primary Care Provider] - Patient Instructions: Contusion in Adults (ED), Opioid Safety, Pain Management Activity Restrictions/Additional Instructions: Keep area cold with ice for the next 48 hours. Use pain medication at home. Return for fever, worsening bleeding, other concerning symptoms. Call your doctor on Saturday for a follow-up appointment. Print Language: Albanian Coding Level of Care Code ED Regional Director Of Finance for Chris Georges
== END 2024-06-27 23:17 | disposition home or self-care (01) ==
PROVIDERS: Emergency Provider Emergency Medicine; PCP Nurse Practitioner Family
DX: S80.11XA Contusion of right lower leg, initial encounter (principal); G89.18 Other acute postprocedural pain; M79.605 Pain in left leg; Z89.511 Acquired absence of right leg below knee; X58.XXXA Exposure to other specified factors, initial encounter
CPT/HCPCS: 73590; 73630; 96372; 99284; J1171; J1885; Q0162

== ENCOUNTER 2024-07-20 18:04 | Emergency (ER) | payer OTHER, SELFPAY ==
[2024-07-20 18:06] VITALS: BP 129/83; PULSE 127; TEMP 36.6; O2SAT 97; BMI 32.5
--- NOTE | 2024-07-20 18:49 | W.ED.EXTPRO ---
HPI - Extremity Problem General: Chief complaint: Extremity Problem,Nontraumatic Stated complaint: Rt Leg Pain Time Seen by Provider: 07/20/24 18:07 Source: patient Mode of arrival: ambulatory Limitations: no limitations History of Present Illness: Patient is a 48-year-old male presenting to the emergency department planing of postop pain. Seen here multiple times in the ED for post BKA pain on the right. States that he ran out of his Percocet, tried calling pain clinic today but they did not answer him. He does not report any other associated symptoms, just stating that his phantom limb pain has severely worsened and just wants dose of pain medication here and will call in the morning. No other associated symptoms such as fever, redness or warmth of the extremity, or other concerns at this time. MD Complaint: extremity pain Pain Consistency: constant Location: right and lower extremity Associated symptoms: Reports no associated symptoms; Deny chest pain, fever(s) or rash Context: other (History of BKA on the right) Related Data Home Medications ?Medication ?Instructions ?Recorded ?Confirmed venlafaxine 225 mg tablet,extended 225 mg PO QAM 09/11/23 06/18/24 release 24 hr cyclobenzaprine 10 mg tablet 10 mg PO TID 06/18/24 06/18/24 hydromorphone 4 mg tablet 4 mg PO Q3H 06/18/24 06/18/24 Previous Rx's ?Medication ?Instructions ?Recorded oxycodone-acetaminophen 7.5 mg-325 1 tab PO Q4H PRN pain #60 tabs //25 mg tablet (Percocet) oxycodone-acetaminophen 5 mg-325 1 tab PO Q4H PRN pain #30 tabs 06/24/25 mg tablet (Percocet) Allergies Allergy/AdvReac Type Severity Reaction Status Date / Time atomoxetine (From Strattera) Allergy ADR-Shakine Verified 07/20/24 18:14 ss escitalopram (From Lexapro) Allergy Unknown Verified 07/20/24 18:14 Review of Systems General: Reports: 10 or more systems reviewed and unremarkable except in HPI and below Const: Denies: fever(s) or chills Card: Denies: chest pain Resp: Denies: dyspnea or productive cough GI: Denies: abdominal pain, nausea, vomiting or diarrhea : Denies: flank pain Musc: Reports: extremity pain (Right lower extremity); Denies: neck pain, back pain, extremity swelling, joint pain, joint swelling, joint redness, joint warmth or muscle weakness Skin/Breast: Denies: rash Neuro: Denies: headache(s), numbness in extremities or weakness in extremities PFSH ED PFSH: Medical History Sepsis Post-operative infection Post-operative pain Post-operative pain Alcohol abuse No significant past medical history Surgical History No significant past surgical history Physical Exam Const: COMMON NORMALS: no acute distress, patient oriented x3, no limitations, healthy appearing, alert and well nourished HENMT: COMMON NORMALS: normocephalic and atraumatic HEAD & SCALP: normocephalic and atraumatic Neck/C-Spine: COMMON NORMALS: full ROM, supple and no meningeal signs Resp: COMMON NORMALS: normal respiratory effort, No use of accessory muscles and clear to auscultation bilaterally AUSCULTATION: clear to auscultation bilaterally Cardio: COMMON NORMALS: regular rate and regular rhythm RATE: regular rate RHYTHM: regular rhythm Extremity: NARRATIVE EXTREMITY EXAM: Right BKA. Evaluation of the stump does not reveal any redness, warmth, red streaking, wound dehiscence, or other abnormalities. Neuro: COMMON NORMALS: patient oriented x3, moves all extremities, no focal motor deficits and no sensory deficits noted SENSORIUM/ORIENTATION: Yes alert MENINGEAL SIGNS: Yes no meningeal signs Skin: COMMON NORMALS: no rashes or lesions noted GENERAL SKIN EXAM: no rashes or lesions noted Course Vital Signs: Vital signs: Vital Signs Temperature 97.8 F 07/20/24 18:06 Pulse Rate 127 H 07/20/24 18:06 Blood Pressure 129/83 07/20/24 18:06 Pulse Oximetry 97 07/20/24 18:06 Oxygen Delivery Me thod Room Air 07/20/24 18:06 MDM - Extremity (Nontraumatic) Medical Decision Making Patient presenting for continued pain to right BKA, however was controlled but ran out of his Percocet. Tried calling today but was unable for an answer. Just requesting pain medications at this time, evaluation of the right BKA does not show any acute abnormalities in need of imaging or labs. Pain medication given through IV here, sent home with 1 Percocet as rescue medication and he is instructed to call pain clinic in the morning. He agrees with this plan and verbalizes understanding to return precautions. No radiology studies performed this visit Discharge Plan Discharge Patient Disposition: Home Clinical Impression: Post-op pain Condition: Stable Prescriptions: No Action venlafaxine 225 mg Tablet Extended Release 24hr 225 mg PO QAM oxycodone-acetaminophen [Percocet] 7.5-325 mg tablet 1 tab PO Q4H PRN (Reason: pain) Qty: 60 0RF cyclobenzaprine 10 mg tablet 10 mg PO TID hydromorphone 4 mg tablet 4 mg PO Q3H oxycodone-acetaminophen [Percocet] 5-325 mg tablet 1 tab PO Q4H PRN (Reason: pain) Qty: 30 0RF Discharge Orders: Discharge ED (Routine); Ordered 07/20/24 Ordered By: Brant Alan Referrals: Juwan Mishra APRN [Primary Care Provider] - Patient Instructions: Opioid Safety, Pain Management Activity Restrictions/Additional Instructions: Call pain clinic tomorrow to discuss your refill, and follow-up with your regular doctor as we talked about to discuss potential different referrals with any further issues. Sent home with 1 Percocet as rescue pain medication, continue taking your Robaxin and Lyrica. Please return if pain persists, I hope you begin feeling better soon. Print Language: Uzbek Coding Level of Care Code ED Reliability Manager for Chris Georges
[2024-07-20] MEDS: oxyCODONE-APAP 10-325 mg Tablet 1 TAB PO (19:14)
[2024-07-20] MEDS: HYDROmorphone 0.5 MG/0.5 ML INJ 1 MG IVP (19:15)
[2024-07-20] MEDS: ketorolac 30 mg/mL INJ IVP (19:15)
[2024-07-20 19:17] VITALS: BP 183/102; PULSE 100; RESP 16; O2SAT 92
[2024-07-20 20:07] VITALS: BP 168/90; PULSE 99; RESP 16; O2SAT 91
== END 2024-07-20 19:42 | disposition home or self-care (01) ==
PROVIDERS: Emergency Provider Physician Assistant; PCP Nurse Practitioner Family
DX: G89.18 Other acute postprocedural pain (principal); Z98.890 Other specified postprocedural states
CPT/HCPCS: 96374; 96375; 99284; J1171; J1885; J9999

== ENCOUNTER 2024-07-23 14:06 | Emergency (ER) | payer OTHER, SELFPAY ==
[2024-07-23 14:21] VITALS: BP 195/126; PULSE 111; RESP 18; TEMP 37.2; O2SAT 97; BMI 33.1
--- NOTE | 2024-07-23 14:30 | W.ED.EXTPRO ---
HPI - Extremity Problem General: Chief complaint: Extremity Problem,Nontraumatic Stated complaint: Right leg pain Time Seen by Provider: 07/23/24 14:27 Source: patient and family Mode of arrival: wheelchair Limitations: no limitations History of Present Illness: Patient is a 48-year-old male presents to ED today requesting pain medication regarding pain to his right BKA. Surgery was reportedly [address] Johnson at [facility]. He states following the surgery he did have follow-up with Dr. Johnson. He was then referred to [facility] and has seen them several times however is not pleased with their care. Patient states was apparently at pain management today but reportedly got frustrated with them over how he was treated and walked out of their office and is personally terminating his care with them. MD Complaint: extremity pain Onset (ago): week(s) Pain Consistency: constant Location: right and lower extremity Severity scale (1-10): 10 Quality: burning Radiation: none Relieving factors: other (pain medications) Exacerbating factors: nothing Associated symptoms: Reports no associated symptoms; Deny fever(s) Related Data Home Medications ?Medication ?Instructions ?Recorded ?Confirmed venlafaxine 225 mg tablet,extended 225 mg PO QAM 09/11/23 06/18/24 release 24 hr cyclobenzaprine 10 mg tablet 10 mg PO TID 06/18/24 06/18/24 Previous Rx's ?Medication ?Instructions ?Recorded hydrocodone 5 mg-acetaminophen 325 1 tab PO Q6H PRN pain #14 tabs 07/23/24 mg tablet Allergies Allergy/AdvReac Type Severity Reaction Status Date / Time atomoxetine (From Strattera) Allergy ADR-Shakine Verified 07/20/24 18:14 ss escitalopram (From Lexapro) Allergy Unknown Verified 07/20/24 18:14 Review of Systems Const: Denies: fever(s) Musc: Reports: extremity pain; Denies: neck pain, back pain, extremity swelling, joint pain, joint swelling or joint redness Neuro: Denies: numbness in extremities or sensory changes PFS ED PFSH: Medical History Sepsis Post-operative infection Post-operative pain Post-operative pain Alcohol abuse No significant past medical history Surgical History No significant past surgical history Physical Exam Const: COMMON NORMALS: no acute distress, average body habitus, patient oriented x3, no limitations, healthy appearing, alert and well nourished Extremity: NARRATIVE EXTREMITY EXAM: stump does not appear infected Neuro: COMMON NORMALS: patient oriented x3 SENSORIUM/ORIENTATION: Yes alert Course Vital Signs: Vital signs: Vital Signs Temperature 98.9 F 07/23/24 14:21 Pulse Rate 111 H 07/23/24 14:21 Respiratory Rate 18 07/23/24 14:21 Blood Pressure 195/126 07/23/24 14:21 Pulse Oximetry 97 07/23/24 14:21 Oxygen Delivery Me thod Room Air 07/23/24 14:21 MDM - Extremity (Nontraumatic) Medical Decision Making Discussed how I would be willing to write him one prescription today but that no further narcotics would be issued from our ED. He needs to follow up with his surgeon or his primary care for further pain management. Medical Records I reviewed the patient's medical records. No radiology studies performed this visit Discharge Plan Discharge Patient Disposition: Home Clinical Impression: Pain at surgical site Condition: Stable Prescriptions: New hydrocodone-acetaminophen 5-325 mg tablet 1 tab PO Q6H PRN (Reason: pain) Qty: 14 0RF Discontinued oxycodone-acetaminophen [Percocet] 7.5-325 mg tablet 1 tab PO Q4H PRN (Reason: pain) Qty: 60 0RF hydromorphone 4 mg tablet 4 mg PO Q3H oxycodone-acetaminophen [Percocet] 5-325 mg tablet 1 tab PO Q4H PRN (Reason: pain) Qty: 30 0RF No Action venlafaxine 225 mg Tablet Extended Release 24hr 225 mg PO QAM cyclobenzaprine 10 mg tablet 10 mg PO TID Discharge Orders: Discharge ED (Routine); Ordered 07/23/24 Ordered By: Skyla Ceron Referrals: Juwan Mishra APRN [Primary Care Provider] - Patient Instructions: Opioid Safety, Pain Management Activity Restrictions/Additional Instructions: As we discussed, you need to contact the [facility] for further instructions regarding pain management going forward. We will not continue to prescribe opiate pain medication for your pain from the emergency department. Print Language: American Coding Level of Care Code ED Metal Base Blocker for Chris Georges
[2024-07-23 15:12] VITALS: BP 152/103; PULSE 91; RESP 16; O2SAT 97
== END 2024-07-23 15:26 | disposition home or self-care (01) ==
PROVIDERS: Emergency Provider Physician Assistant; PCP Nurse Practitioner Family
DX: M79.604 Pain in right leg (principal); Z76.0 Encounter for issue of repeat prescription
CPT/HCPCS: 99283

== ENCOUNTER 2024-08-02 18:16 | Emergency (ER) | payer OTHER, SELFPAY ==
[2024-08-02 18:22] VITALS: BP 148/87; PULSE 102; RESP 18; TEMP 35.8; O2SAT 94
--- NOTE | 2024-08-02 19:17 | W.ED.EXTPRO ---
HPI - Extremity Problem General: Chief complaint: Extremity Problem,Nontraumatic Stated complaint: pain in both legs/ several falls Time Seen by Provider: 08/02/24 18:56 Source: patient Mode of arrival: wheelchair Limitations: no limitations History of Present Illness: Patient is a 48-year-old male presents to ED today with a main complaint of pain to his right stump amputation. This has been an ongoing problem for patient since his surgery. Surgery was performed by Dr. Johnson. He has pretty much been cleared from an orthopedic standpoint. He was at some point under [facility] but got frustrated with their care and dismissed himself. He states the [facility] is in the process of referring him to a new pain management provider. He is also supposed to be getting fit for his prosthesis. States he has tried to get an appointment with his PCP many times since his last ED visit here but has been unsuccessful. He is taking Lyrica and Robaxin and continues to have severe pain. MD Complaint: extremity pain Onset (ago): week(s) Pain Consistency: constant Location: right and lower extremity Radiation: none Relieving factors: nothing Exacerbating factors: nothing Associated symptoms: Reports no associated symptoms; Deny fever(s) Related Data Home Medications ?Medication ?Instructions ?Recorded ?Confirmed venlafaxine 225 mg tablet,extended 225 mg PO QAM 09/11/23 06/18/24 release 24 hr cyclobenzaprine 10 mg tablet 10 mg PO TID 06/18/24 06/18/24 Previous Rx's ?Medication ?Instructions ?Recorded hydrocodone 5 mg-acetaminophen 325 1 tab PO Q6H PRN pain #14 tabs 08/02/24 mg tablet Allergies Allergy/AdvReac Type Severity Reaction Status Date / Time atomoxetine (From Strattera) Allergy ADR-Shakine Verified 08/02/24 18:26 ss escitalopram (From Lexapro) Allergy Unknown Verified 08/02/24 18:26 Review of Systems Const: Denies: fever(s), chills or body aches Musc: Reports: extremity pain; Denies: extremity swelling, joint pain, joint swelling, joint redness or joint warmth PFSH ED PFSH: Medical History Sepsis Post-operative infection Post-operative pain Post-operative pain Alcohol abuse No significant past medical history Surgical History No significant past surgical history Physical Exam Const: COMMON NORMALS: no acute distress, average body habitus, no limitations, healthy appearing, alert and well nourished Extremity: NARRATIVE EXTREMITY EXAM: R BKA GENERAL: Yes normal exam except as noted Neuro: SENSORIUM/ORIENTATION: Yes alert Course Vital Signs: Vital signs: Vital Signs Temperature 96.5 F L 08/02/24 18:22 Pulse Rate 102 H 08/02/24 18:22 Respiratory Rate 18 08/02/24 18:22 Blood Pressure 148/87 08/02/24 18:22 Pulse Oximetry 94 08/02/24 18:22 MDM - Extremity (Nontraumatic) Medical Decision Making Patient here for continued pain to his R BKA. He is frustrated as nobody seems willing to intervene and manage his chronic pain. We did discuss how he was in with pain management and on his own actions (got frustrated/angry and walked out flipping staff off) that he is now in this state of limbo where he is waiting on a new pain management referral. Surgeon has cleared from their end and is no longer willing to write for additional medications. Patient [facility] and has (reportedly) tried for appointments with them since his last visit here. He does have some type of collective telehealth visit tomorrow with PCP and prosthesis company tomorrow to get that all approved. I don't have pharmacy here to check/verify opioid prescription abuse. Somewhat sympathetic to his situation although continuing to come to the ED is not an acceptable solution. Will provide one additional presciption and he needs to talk to his PCP THIS WEEK about plan going forward as we will not continue to treat from the emergency department. Medical Records I reviewed the patient's medical records. No radiology studies performed this visit Discharge Plan Discharge Patient Disposition: Home Clinical Impression: Amputation stump pain Condition: Stable Prescriptions: Continued hydrocodone-acetaminophen 5-325 mg tablet 1 tab PO Q6H PRN (Reason: pain) Qty: 14 0RF No Action venlafaxine 225 mg Tablet Extended Release 24hr 225 mg PO QAM cyclobenzaprine 10 mg tablet 10 mg PO TID Discharge Orders: Discharge ED (Routine); Ordered 08/02/24 Ordered By: Skyla Ceron Referrals: Juwan Mishra APRN [Primary Care Provider] - Patient Instructions: Opioid Safety, Pain Management Activity Restrictions/Additional Instructions: As we discussed, you need to continue to follow-up with your primary care provider/[facility] for further plan going forward for your pain related to your amputation stump. Print Language: Macanese Coding Level of Care Code ED Laborer Plumbing for Chris Georges
[2024-08-02] MEDS: ketorolac 60 mg/2 mL INJ IM (20:11)
[2024-08-02] MEDS: HYDROmorphone 0.5 MG/0.5 ML INJ 1 MG SUBCUT (20:12)
== END 2024-08-02 20:22 | disposition home or self-care (01) ==
PROVIDERS: Emergency Provider Physician Assistant; PCP Nurse Practitioner Family
DX: T87.89 Other complications of amputation stump (principal)
CPT/HCPCS: 96372; 99284; J1171; J1885

== ENCOUNTER 2024-08-14 16:44 | Emergency (ER) | payer OTHER, SELFPAY ==
[2024-08-14 16:45] VITALS: BP 159/90; PULSE 97; RESP 16; TEMP 36.7; O2SAT 97; BMI 33.1
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
--- NOTE | 2024-08-14 16:55 | W.ED.EXTPRO ---
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 he has a history of chronic pain states he is between pain specialist he still having phantom limb pain on the right leg has been having some pain in his left knee as well he has had falls denies any other injury rates pain a 7 out of 10 Associated symptoms: Deny chest pain, fever(s) or rash Related Data Home Medications ?Medication ?Instructions ?Recorded ?Confirmed venlafaxine 225 mg tablet,extended 225 mg PO QAM 09/11/23 06/18/24 release 24 hr cyclobenzaprine 10 mg tablet 10 mg PO TID 06/18/24 06/18/24 Previous Rx's ?Medication ?Instructions ?Recorded hydrocodone 5 mg-acetaminophen 325 1 tab PO Q6H PRN pain #14 tabs 08/02/24 mg tablet Allergies Allergy/AdvReac Type Severity Reaction Status Date / Time atomoxetine (From Strattera) Allergy ADR-Shakine Verified 08/10/24 18:37 ss escitalopram (From Lexapro) Allergy Unknown Verified 08/10/24 18:37 Review of Systems Const: Denies: fever(s), chills, body aches or change in appetite ENMT: Denies: throat pain or dental pain Card: Denies: chest pain Resp: Denies: dyspnea GI: Denies: abdominal pain, nausea, vomiting or diarrhea Musc: Reports: extremity pain; Denies: neck pain or back pain Skin/Breast: Denies: rash Neuro: Denies: headache(s) PFS ED PFSH: Medical History Sepsis Post-operative infection Post-operative pain Post-operative pain Alcohol abuse No significant past medical history Surgical History No significant past surgical history Physical Exam Const: COMMON NORMALS: no acute distress, patient oriented x3 and healthy appearing HENMT: COMMON NORMALS: normocephalic and atraumatic HEAD & SCALP: normocephalic and atraumatic Eye: COMMON NORMALS: conjunctivae normal CONJUNCTIVA: Yes conjunctivae normal Neck/C-Spine: COMMON NORMALS: full ROM and supple Chest: COMMONS NORMALS: normal inspection of the chest Resp: COMMON NORMALS: normal respiratory effort Cardio: COMMON NORMALS: regular rate RATE: regular rate Extremity: COMMON NORMALS: normal to inspection and full ROM NARRATIVE EXTREMITY EXAM: Stump from the right leg BKA's well-appearing no signs of infection or erythema some slight tenderness left knee no warmth to touch no deformity Neuro: COMMON NORMALS: patient oriented x3, moves all extremities and no focal motor deficits Psych: COMMON NORMALS: mental status grossly normal, Normal thought process present and cooperative THOUGHT PROCESS: Normal thought process present Skin: COMMON NORMALS: no rashes or lesions noted and no wounds GENERAL SKIN EXAM: no rashes or lesions noted Course Vital Signs: Vital signs: Vital Signs Temperature 98.0 F 08/14/24 16:45 Pulse Rate 97 08/14/24 16:45 Respiratory Rate 16 08/14/24 16:45 Blood Pressure 159/90 08/14/24 16:45 Pulse Oximetry 97 08/14/24 16:45 Oxygen Delivery Me thod Room Air 08/14/24 16:45 MDM - Extremity (Nontraumatic) Medical Decision Making Patient presents here with knee pain his exam is benign x-ray shows no fracture he stable for discharge he is to follow-up with pain management return if worsening he understands agrees to plan Medical Records I reviewed the patient's medical records. Lab Data Radiology Impressions Knee X-Ray 08/14/24 16:55 IMPRESSION: No acute findings. All radiology interpretation(s) finalized by discharge Discharge Plan Discharge Patient Disposition: Home Clinical Impression: Left knee pain Condition: Stable Prescriptions: No Action venlafaxine 225 mg Tablet Extended Release 24hr 225 mg PO QAM cyclobenzaprine 10 mg tablet 10 mg PO TID hydrocodone-acetaminophen 5-325 mg tablet 1 tab PO Q6H PRN (Reason: pain) Qty: 14 0RF Discharge Orders: Discharge ED (Routine); Ordered 08/14/24 Ordered By: Lonnie Carrasco Referrals: Juwan Mishra APRN [Primary Care Provider, Nurse Practitioner] Discharge Diet: Advance as tolerated Discharge Activity: Resume usual activity Patient Instructions: Knee Pain (ED) Print Language: Serbian Coding Level of Care Code ED Technical Marketing Consultant for Chris Georges
[2024-08-14] MEDS: HYDROcodone-acetaminophen 7.5-325 mg Tablet 1 TAB PO (17:02)
[2024-08-14 18:01] VITALS: BP 187/106; PULSE 88; RESP 16; O2SAT 95
== END 2024-08-14 18:01 | disposition home or self-care (01) ==
PROVIDERS: Emergency Provider Emergency Medicine; PCP Nurse Practitioner Family
DX: M25.562 Pain in left knee (principal); Z89.511 Acquired absence of right leg below knee
CPT/HCPCS: 73562; 99283; J9999

== ENCOUNTER 2024-08-15 10:26 | Emergency (ER) | payer OTHER, SELFPAY ==
[2024-08-15 10:31] VITALS: BP 157/105; PULSE 108; RESP 20; TEMP 36.9; O2SAT 98
--- NOTE | 2024-08-15 10:38 | W.ED.EXTPRO ---
HPI - Extremity Problem General: Chief complaint: Extremity Injury, Lower Stated complaint: amputation pain in rt leg Time Seen by Provider: 08/15/24 10:27 History of Present Illness: 48-year-old male with a history of chronic pain and fairly recent right BKA who presents to the emergency room with leg pain. He has been here quite frequently in the past. 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 Basically he says his plan is to come to the emergency room every time he has acute pain to be treated with narcotics. I discussed with him that likely he needs to find a provider who can offer appropriate pain control in the meantime. I will give him a small supply of hydrocodone but warned that emergency room is not able to continue providing narcotic pain medications. We have had several prescriptions in the past from this ER and from pain control. He had examination and x-rays yesterday and his amputation looks good. Related Data Home Medications ?Medication ?Instructions ?Recorded ?Confirmed venlafaxine 225 mg tablet,extended 225 mg PO QAM 09/11/23 06/18/24 release 24 hr cyclobenzaprine 10 mg tablet 10 mg PO TID 06/18/24 06/18/24 Previous Rx's ?Medication ?Instructions ?Recorded hydrocodone 5 mg-acetaminophen 325 1 tab PO Q6H PRN pain #14 tabs /27/25 mg tablet hydrocodone 5 mg-acetaminophen 325 1 tab PO Q8H PRN pain #20 tabs 05/10/25 mg tablet Allergies Allergy/AdvReac Type Severity Reaction Status Date / Time atomoxetine (From Strattera) Allergy ADR-Shakine Verified 08/10/24 18:37 ss escitalopram (From Lexapro) Allergy Unknown Verified 08/10/24 18:37 Review of Systems Narrative: Constitutional symptoms: Negative except as documented in HPI. Skin symptoms: Negative except as documented in HPI. Eye symptoms: Negative except as documented in HPI. ENMT symptoms: Negative except as documented in HPI. Respiratory symptoms: Negative except as documented in HPI. Cardiovascular symptoms: Negative except as documented in HPI. Gastrointestinal symptoms: Negative except as documented in HPI. Genitourinary symptoms: Negative except as documented in HPI. Musculoskeletal symptoms: Negative except as documented in HPI. Neurologic symptoms: Negative except as documented in HPI. Psychiatric symptoms: Negative except as documented in HPI. Endocrine symptoms: Negative except as documented in HPI. [facility] ED PFSH: Medical History Sepsis Post-operative infection Post-operative pain Post-operative pain Alcohol abuse No significant past medical history Surgical History No significant past surgical history Physical Exam Narrative: EXAM NARRATIVE: General: Alert, no acute distress. Skin: warm and dry Head: Normocephalic Neck: Trachea midline Eye: Extraocular movements are intact. Ears, nose, mouth and throat: Oral mucosa moist Respiratory: Respirations are non-labored Musculoskeletal: Normal ROM. Right BKA Gastrointestinal: Abdomen does not appear distended Neurological: Alert and oriented, No focal neurological deficit observed. Psychiatric: Cooperative, appropriate mood & affect. Course Vital Signs: Vital signs: Vital Signs Temperature 98.4 F 08/15/24 10:31 Pulse Rate 108 H 08/15/24 10:31 Respiratory Rate 20 H 08/15/24 10:31 Blood Pressure 157/105 08/15/24 10:31 Pulse Oximetry 98 08/15/24 10:31 Oxygen Delivery Me thod Room Air 08/15/24 10:31 MDM - Extremity (Nontraumatic) Medical Decision Making Assessment and plan: Chronic pain syndrome Right below-knee potation. ?Hydrocodone in the emergency room. I reluctantly have written a small prescription of hydrocodone. [facility] But this is not for couple of weeks - Discharged home - Discussed plan with patient. Answered any questions. - Evaluation and treatment of this problem were appropriate in the emergency setting. No radiology studies performed this visit Discharge Plan Discharge Patient Disposition: Home Clinical Impression: Status post amputation of extremity, Chronic pain syndrome Condition: Stable Prescriptions: New hydrocodone-acetaminophen 5-325 mg tablet 1 tab PO Q8H PRN (Reason: pain) Qty: 20 0RF No Action venlafaxine 225 mg Tablet Extended Release 24hr 225 mg PO QAM cyclobenzaprine 10 mg tablet 10 mg PO TID hydrocodone-acetaminophen 5-325 mg tablet 1 tab PO Q6H PRN (Reason: pain) Qty: 14 0RF Discharge Orders: Discharge ED (Routine); Ordered 08/15/24 Ordered By: Sandra Mehta Referrals: Juwan Mishra APRN [Primary Care Provider, Nurse Practitioner] Discharge Diet: Usual diet Discharge Activity: Increase activity as tolerated Patient Instructions: Opioid Safety, Pain Management Activity Restrictions/Additional Instructions: Thank you for choosing [facility] for your healthcare needs today. You have been screened and evaluated and felt safe for discharge. Health conditions do change or evolve sometimes and as such it is important that you follow up with your Primary Doctor to be re checked, 3-5 days is a general good time frame for follow up. You are always welcome to return to the ED for re assessment if your symptoms are worsening or you have new concerns Print Language: Salvadorean Coding Level of Care Code ED Finger Waver for Chris Georges
[2024-08-15] MEDS: HYDROcodone-acetaminophen 10-325 mg Tablet 1 TAB PO (10:40)
[2024-08-15 10:41] VITALS: PULSE 101; O2SAT 98
== END 2024-08-15 10:42 | disposition home or self-care (01) ==
PROVIDERS: Emergency Provider Emergency Medicine; PCP Nurse Practitioner Family
DX: Z89.511 Acquired absence of right leg below knee (principal); G89.4 Chronic pain syndrome
CPT/HCPCS: 99283; J9999

== ENCOUNTER 2024-10-14 19:23 | Emergency (ER) | payer OTHER, SELFPAY ==
--- OUTSIDE RECORDS SUMMARY | 2023-11-04 09:27 | XMS_ITS | Encounter Summary ---
Author Name [facility] [place] [facility] [place] [facility] [place] Address 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 This section includes the names of all active insurance providers for the patient. Insurance Provider Type of Coverage Plan Name Start of Policy Coverage End of Policy Coverage Group Number Member ID Insurance Provider's Telephone Number Policy Duran's Name Patient's Relationship to Policy Duran Selected Encounter This section includes the information on record at [place] for the Encounter. Date/Time Encounter Type Encounter Description Reason Provider Source Nov 04, 2023 02:27 PM Outpatient Encounter ADMIN PAT ACTIVTIES (MASNONCT) NANCY VELASCO IHRosibel Encounter Template Text not used by [place] Plan of Treatment: Future Appointments (+ 6 months) and Future Tests (+/- 45 days) The Plan of Treatment section includes future care activities for the patient from all [place] treatmentfacilities. This section includes future appointments and future orders which are active, pending or scheduled. Future Appointments This section includes appointments that were scheduled to occur 6 months from the date of the Encounter, up to a maximum of 20 appointments. The data comes from all [place] treatment facilities. Appointment Date/Time Appointment Type Appointme nt Facility Name Nov 18, 2023 11:30 AM AMBULATORY - PSYCHIATRY [facility] Nov 20, 2023 09:30 AM AMBULATORY - PS[facility]CHIATRY [facility] Nov 21, 2023 08:30 AM AMBULATORY - PSYCHIATRY [facility] Nov 21, 2023 11:00 AM AMBULATORY - PSYCHIATRY [facility] Nov 22, 2023 08:15 AM AMBULATORY - PSYCHIATRY NO [facility] Nov 22, 2023 09:00 AM AMBULATORY - PSYCHIATRY NO [facility], [facility] Nov 22, 2023 10:30 AM AMBULATORY - PSYCHIATRY NO [facility] Nov 22, 2023 02:00 PM AMBULATORY - PSYCHIATRY NO [facility] Nov 25, 2023 08:15 AM AMBULATORY - PSYCHIATRY NO [facility], [facility] Nov 25, 2023 09:00 AM AMBULATORY - PSYCHIATRY NO [facility] Nov 25, 2023 10:30 AM AMBULATORY - PSYCHIATRY NO [facility]EL, [facility] Nov 25, 2023 01:00 PM AMBULATORY - NONE [facility], [facility] Nov 26, 2023 08:15 AM AMBULATORY - PSYCHIATRY [facility] Nov 26, 2023 09:00 AM AMBULATORY - PSYCHIATRY NO [facility], [facility] Nov 26, 2023 10:30 AM AMBULATORY - PSYCHIATRY NO [facility] Nov 26, 2023 11:30 AM AMBULATORY - PSYCHIATRY NO [facility] Nov 27, 2023 08:15 AM AMBULATORY - PSYCHIATRY NO [facility] Nov 27, 2023 09:00 AM AMBULATORY - PSYCHIATRY NO [facility] Nov 27, 2023 10:30 AM AMBULATORY - PSYCHIATRY NO [facility] Nov 28, 2023 08:15 AM AMBULATORY - PSYCHIATRY NO [facility] Lab Results: +/- 30 days of the encounter This section includes the Chemistry and Hematology Lab Results on record with [facility] for the patient. Radiology Reports and Pathology Reports are provided separately, in subsequent sections. Lab Results This section contains the Chemistry/Hematology Results that were resulted 30 days before or 30 daysafter the date of the Encounter. Date/Time Source Result Type Result - Unit Interpretation Reference Range Specimen Type Comment Nov 26, 2023 08:27 AM [facility] DRUG ABUSE SURVEY (NLR) URINE Specimen Type: URINE No comment entered. Ordering Provider: ADELFO KEEN Report Released Date/Time: Nov 25, 2023 08:35 AM Reporting Lab: [facility] [address] [address] Performing Lab: [facility] [address] [place] [id number] AMPHETAMINES-MOHIT NEG Cutoff - 1000 n g/mL COCAINE-MOHIT NEG Cutoff - 300 ng/mL CANNABINOIDS-MOHIT NEG Cutoff - 50 ng/ mL OPIATES-MOHIT NEG Cutoff - 300 ng/mL URINE BARBITURATES-MOHIT POS H Cutoff - 200 ng/mL URINE BENZODIAZEPINES-MOHIT NEG Cutoff - 200 ng/mL CREATININE, URINE (mg/dL) >400 mg/dL See Eval Nov 18, 2023 12:31 PM [facility] DRUG ABUSE SURVEY (NLR) URINE Specimen Type: URINE No comment entered. Ordering Provider: BELKYS HOLLOWAY Report Released Date/Time: Nov 18, 2023 12:17 PM Reporting Lab: [facility] [address] [address] Performing Lab: [facility] [address] [address] AMPHETAMINES-MOHIT NEG Cutoff - 1000 n g/mL COCAINE-MOHIT NEG Cutoff - 300 ng/mL CANNABINOIDS-MOHIT NEG Cutoff - 50 ng/ mL OPIATES-MOHIT POS H Cutoff - 300 ng/mL URINE BARBITURATES-MOHIT POS H Cutoff - 200 ng/mL URINE BENZODIAZEPINES-MOHIT NEG Cutoff - 200 ng/mL CREATININE, URINE (mg/dL) 221 mg/dL See Eval Nov 13, 2023 07:51 AM [facility] PSA, TOTAL SERUM Specimen Ty pe: SERUM No comment entered. Ordering Provider: LAURITA BERNAL Report Released Date/Time: Nov 12, 2023 06:13 PM Reporting Lab: [facility] [address] [address] Performing Lab: [address] [address] PSA, TOTAL 1.18 ng/mL 0-4 Nov 11, 2023 06:40 AM [facility] BMP+ALBUMIN PLASMA Specimen Ty pe: PLASMA No comment entered. Ordering Provider: GIGI HORTON Report Released Date/Time: Nov 10, 2023 09:37 PM Reporting Lab: [address] [address] Performing Lab: [place] [phone] CREATININE 1.1 mg/dL 0.6-1.3 GLUCOSE 72 mg/dL 70-109 SODIUM 139 mmol/L 135-145 POTASSIUM 4.0 mmol/L 3.5-5.1 CHLORIDE 102 mmol/L 100-109 CO2 29 mmol/L 22-29 ALBUMIN 2.5 g/dL L 3.4-5 CALCIUM 8.9 mg/dL 8.3-10.3 UREA NITROGEN 3 mg/dL L 5.0-20.0 EGFR CKD-EPI 2020 83 L >90 Nov 11, 2023 06:40 AM [facility] CBC WITH DIFFERENTIAL BLOOD Specimen Type: BL OOD No comment entered. Ordering Provider: GIGI HORTON Report Released Date/Time: Nov 10, 2023 09:37 PM Reporting Lab: [address] [address] Performing Lab: [address] [address] WBC 8.2 10*3/uL 3.6-10.0 RBC 3.50 10*6/uL L 4.0-6.0 HGB 11.3 g/dL L 13.5-18.0 HCT 33.7 L 40.0-54.0 MCV 96.2 fL H 80.0-94.0 MCH 32.3 pg 27-33 MCHC 33.6 g/dL 32.0-36.0 PLATELET COUNT 596 10*3/uL H 150.0-450.0 MPV 7.5 fL 7.4-10.4 RDW 15.4 H 11.5-14.5 MO % 8.0 SEE ABSOLUTE # LY # 1.3 10*3/uL 1.0-4.3 MO # 0.7 10*3/uL 0.3-1.0 LY % 16.4 L SEE ABSOLUTE # NE % 73.9 H SEE ABSOLUTE # NE # 6.1 10*3/uL 2.4-7.6 EO # 0.1 10*3/uL 0.0-0.5 BA # 0.0 10*3/uL 0.0-0.1 BA % 0.6 SEE ABSOLUTE # EO % 1.1 SEE ABSOLUTE # Nov 11, 2023 02:46 AM [facility] MRSA SURVL NARES AGAR NARES Specimen Type: NA RES Comment: *MRSA SURVL NARES DNA Not Performed: Nov 11, 2023@07:39 by [id number] *APPLIANCE TESTER Reason: DNA TESTING NOT AVAILABLE-CULTURE ADDED Ordering Provider: GIGI HORTON Report Released Date/Time: Nov 10, 2023 09:37 PM Reporting Lab: [address] [phone] Performing Lab: [address] [address] MRSA SURVL NARES AGAR Negative Negative Advance Directives: All historical and current Section Date Range: From patient's date of to the date document was created. This section includes ALL of a patient's completed or amended [place] Advance and Rescinded Directives. The entries below indicate that a directive exists for the patient, but an actual copy is not included with this document. The data comes from all [place] facilities. Date Advance Directives Provider Source Jul 30, 2016 ADVANCE DIRECTIVE DISCUSSION [facility] Radiology Reports: +/- 30 days of the encounter Radiology Reports For cases when an order for radiology services may have been completed prior to the date of the Encounter, the report list includes the Radiology Reports that were completed up to 30 days before dateof the Encounter. For cases when an order for radiology services may have been completed after the date of the Encounter, the report list also includes the Radiology Reports that were completed up to30 days after date of the Encounter. The data comes from all [place] treatment facilities. Date/Time Radiology Report Provider Source Nov 06, 2023 04:00 PM OUTSIDE MRI: YAJAIRA SMITH [id number] -1975 M Exm Date: NOV 06, 2023@16:00 Req Phys: JOSE DAVID LEBLANC Pat Loc: COM CARE-MRI (Req'g Loc) Img Loc: OUTSIDE MRI Service: Unknown (Case [id number] COMPLETE)OUTSIDE MRI (MRI Detailed) CPT:09512 Reason for Study: [facility]-OUTSIDE MRI Clinical History: [facility]-OUTSIDE MRI MR T-spine Report Status: Electronically Filed Date Reported: Report: [facility] FOR COMPARISON ONLY Impression: FOR COMPARISON ONLY Primary Diagnostic Code: IMAGING VERIFIED BY: / *ELECTRONICALLY FILED* [facility] Nov 06, 2023 03:00 PM OUTSIDE MRI: YAJAIRA SMITH [id number] -1975 M Exm Date: NOV 06, 2023@15:00 Req Phys: JOSE DAVID LEBLANC Loc: COM CARE-MRI (Req'g Loc) Img Loc: OUTSIDE MRI Service: Unknown (Case [id number] COMPLETE)OUTSIDE MRI (MRI Detailed) CPT:16191 Reason for Study: [facility]-OUTSIDE MRI Clinical History: [facility]-OUTSIDE MRI MR L-spine Report Status: Electronically Filed Date Reported: Report: STUDY DONE [facility]IDE [facility]. FOR COMPARISON ONLY Impression: FOR COMPARISON ONLY Primary Diagnostic Code: IMAGING VERIFIED BY: / *ELECTRONICALLY FILED* [facility] Nov 06, 2023 02:00 PM OUTSIDE MRI: YAJAIRA SMITH [id number] 1975 M Exm Date: NOV 06, 2023@14:00 Req Phys: JOSE DAVID LEBLANC Loc: COM CARE-MRI (Req'g Loc) Img Loc: OUTSIDE MRI Service: Unknown (Case [id number] COMPLETE)OUTSIDE MRI (MRI Detailed) CPT:17906 Reason for Study: [facility]-OUTSIDE MRI Clinical History: [facility]-OUTSIDE MRI MR C-spine Report Status: Electronically Filed Date Reported: Report: STUDY DONE [facility]IDE [facility]. FOR COMPARISON ONLY Impression: FOR COMPARISON ONLY Primary Diagnostic Code: IMAGING VERIFIED BY: / *ELECTRONICALLY FILED* [facility] Nov 06, 2023 01:00 PM OUTSIDE MRI: YAJAIRA SMITH [id number] -1975 M Exm Date: NOV 06, 2023@13:00 Req Phys: JOSE DAVID LEBLANC Loc: COM CARE-MRI (Req'g Loc) Img Loc: OUTSIDE MRI Service: Unknown (Case [id number] COMPLETE)OUTSIDE MRI (MRI Detailed) CPT:94437 Reason for Study: [facility] CARE-OUTSIDE MRI Clinical History: [facility] CARE-OUTSIDE MRI MR Head Report Status: Electronically Filed Date Reported: Report: STUDY DONE OUTSIDE THE [place]. FOR COMPARISON ONLY Impression: FOR COMPARISON ONLY Primary Diagnostic Code: IMAGING VERIFIED BY: / *ELECTRONICALLY FILED* [facility] Nov 06, 2023 06:00 AM OUTSIDE GENERAL RA DIOLOGY: YAJAIRA SMITH [id number] -1975 M Exm Date: NOV 06, 2023@06:00 Req Phys: JOSE DAVID LEBLANC Loc: COM CARE-RADIOLOGY GENERAL (Re Img Loc: OUTSIDE GENERAL RADIOLOGY Service: Unknown (Case [id number] COMPLETE)OUTSIDE GENERAL RADIOLOGY (RAD Detailed) CPT:71559 Reason for Study: [facility]-General Radiology Clinical History: [facility]-General Radiology LP Report Status: Electronically Filed Date Reported: Report: STUDY DONE OUTSIDE THE [place]. FOR COMPARISON ONLY Impression: FOR COMPARISON ONLY Primary Diagnostic Code: IMAGING VERIFIED BY: / *ELECTRONICALLY FILED* [facility] Nov 05, 2023 01:[address] SCAN: YAJAIRA SMITH [id number] -1975 M Exm Date: NOV 05, 2023@13:00 Req Phys: DEANABARNEYMARLY Biswas Loc: COM CARE-CT SCAN (Req'g Loc) Img Loc: OUTSIDE CT Service: Unknown (Case [id number] COMPLETE)OUTSIDE CT SCAN (CT Detailed) CPT:34627 Reason for Study: [facility]Outside CT Scan Clinical History: [facility]Outside CT Scan CT Head Report Status: Electronically Filed Date Reported: Report: ST[facility]Y DONE [facility] FOR COMPARISON ONLY Impression: FOR COMPARISON ONLY Primary Diagnostic Code: IMAGING VERIFIED BY: / *ELECTRONICALLY FILED* [facility] Nov 01, 2023 08:[address] SCAN: LUISYAJAIRA Benjamin [id number] -1975 M Exm Date: NOV 01, 2023@08:00 Req Phys: DEANABARNEYMARLY Biswas Loc: COM CARE-CT SCAN (Req'g Loc) Img Loc: OUTSIDE CT Service: Unknown (Case [id number] COMPLETE)OUTSIDE CT SCAN (CT Detailed) CPT:91299 Reason for Study: [facility]Outside CT Scan Clinical History: [facility]-Outside CT Scan CT A/P Report Status: Electronically Filed Date Reported: Report: STUDY DONE [facility] FOR COMPARISON ONLY Impression: FOR COMPARISON ONLY Primary Diagnostic Code: IMAGING VERIFIED BY: / *ELECTRONICALLY FILED* [facility] Encounter Notes: All associated encounter notes This section contains the clinical notes associated to the Encounter. Date/Time Encounter Note(s) Provider Source Nov 04, 2023 02:32 PM MENTAL HEALTH CONS ULT: LOCAL TITLE: SUICIDE PREVENTION HIGH RISK FLAG CONSULT RESPONSE STANDARD TITLE: MENTAL HEALTH CONSULT DATE OF NOTE: NOV 04, 2023@14:32 ENTRY DATE: NOV 04, 2023@14:32:40 AUTHOR: MARQUIS VELASCO COSIGNER: URGENCY: STATUS: COMPLETED Suicide Prevention Consult for High Risk Flag Placement Progress Note Template Suicide Prevention has reviewed this consult for consideration of placing a Patient Record Flag for High Risk for Suicide (HRS-PRF). Suicide Prevention will be activating the HRS-PRF at this time and will be managing the flag. Explain: Flag will be activated on this date. /ben/ ELIGIO VELASCO [facility] Signed: 11/04/2023 14:33 ELIGIO VELASCO [facility]OE [facility] Nov 04, 2023 02:30 PM MENTAL HEALTH ANGELA ENT RECORD FLAG: LOCAL TITLE: PATIENT RECORD FLAG CATEGORY I - HIGH RISK FOR SUIC STANDARD TITLE: MENTAL HEALTH PATIENT RECORD FLAG DATE OF NOTE: NOV 04, 2023@14:30 ENTRY DATE: NOV 04, 2023@14:30:50 AUTHOR: MARQUIS VELASCO COSIGNER: URGENCY: STATUS: COMPLETED PATIENT RECORD FLAG - HIGH RISK FOR SUICIDE Patient Record Flag (PRF) for Suicide placed on Electronic Health Record A Patient Record Flag, High Risk for Suicide (HRS-PRF) has been placed in this [facility]'s electronic health record (EHR). The HRS-PRF will be reviewed 90 days after activation and documentation associated with that review will be posted in the EHR. The [facility] will be notified available resources for suicide prevention, including contact information for the Suicide Etcher [employer] and the Veterans Crisis Line. ALL [place] STAFF: - Please be attentive, friendly, supportive and respectful of the [facility]'s privacy. - Please be alert to the [facility] making any reports of suicidal self- directed violence, and/or seeking access to means to harm self such as extra medications or firearms, or talking or writing about , dying or suicide. - If the [facility] reports imminent suicidal behavior or is in active crisis, activate your facility crisis response procedures and notify the 's Mental Health Tire Fabricator (MHTC) or Provider and the facility Suicide Etcher [employer]engraving (SPC). Mental Health Tire Fabricator or Provider: Kenyatta Oliver LCSW Suicide Etcher [employer]eng[employer]ving: Eligio Velasco LCSW Facility Contact COMMUNITY PROVIDERS: Please contact the identified SPC for care coordination, consultation, if the [facility] reports any new episodes of suicidal self-directed violence, or if the is admitted to a mental health inpatient or residential facility. THE MENTAL HEALTH WASHER MEAT or PROVIDER for the [facility] should initiate the following procedures: 1. Please ensure a Safety Plan has been completed within 7 days before or after HRS-PRF placement, or prior to discharge from inpatient/residential care, and is reviewed and/or revised regularly. 2. Please ensure the [facility] is offered four mental health appointments within the first 30 days after HRS-PRF placement and at least one mental health appointment monthly thereafter until the HRS-PRF has been inactivated. Content of appointments should include review or updating of the 's Safety Plan, suicide risk mitigation strategies, and enhancement of coping mechanisms. MISSED OR CANCELLED APPOINTMENTS: If the [facility] cancels or no-shows to an appointment, designated outreach procedures should be implemented and appropriately documented. Cancellations or no shows for mental health appointments require outreach per scheduling policy. /ben/ ELIGIO [facility] Signed: 11/04/2023 14:31 Receipt Acknowledged By: 11/04/2023 15:22 /es/ JUVENAL ALMEIDA, SALVADOR 11/04/2023 14:53 /es/ XANDER PHILLIPS Suicide Prevention PSA 11/04/2023 14:34 /es/ BILLY STOUT MS, CPS CPS UNDER SUPERVISION, [facility] 11/04/2023 16:17 /es/ JAGJIT OLIVER MSW, ELIGIO [facility]
--- OUTSIDE RECORDS SUMMARY | 2023-11-05 10:20 | XMS_ITS ---
Author Name [facility] [place] Address [address], [place] [address] Care Team Providers Care Electronic Resources Librarian Name Role Phone DONTA BAIRES Primary Care Provider UnavailTAMARA Young Primary Care Provider Unavailab sykes Insurance Providers: All historical and current [...] section includes the information on record at [place] for the Encounter. Date/Time Encounter Type Encounter Description Reason Pro vider Source Nov 05, 2023 03:20 PM Outpatient Encounter ADMIN PAT ACTIVTIES (MASNONCT) IHE Encounter Template Text not used by [place] Plan of Treatment: Future Appointments (+ 6 months) and Future Tests (+/- 45 days) The Plan of Treatment section includes future care activities for the patient from all [place] treatmentfacilities. This section includes future appointments and future orders which are active, pending or scheduled. Future Appointments This section includes appointments that were scheduled to occur 6 months from the date of the Encounter, up to a maximum of 20 appointments. The data comes from all [place] treatment facilities. Appointment Date/Time Appointment Type Appointme nt Facility Name Nov 18, 2023 11:30 AM AMBULATORY - PSYCHIATRY NO [facility] Nov 20, 2023 09:30 AM AMBULATORY - PSYCHIATRY NO RTH [facility] Nov 21, 2023 08:30 AM AMBULATORY - PSYCHIATRY NO RTH [facility] Nov 21, 2023 11:00 AM AMBULATORY - PSYCHIATRY NO RTH [facility] Nov 22, 2023 08:15 AM AMBULATORY - PSYCHIATRY NO RTH [facility] Nov 22, 2023 09:00 AM AMBULATORY - PSYCHIATRY NO RTH GRECIA RANGEL, [facility] Nov 22, 2023 10:30 AM AMBULATORY - PSYCHIATRY NO RTH [facility] Nov 22, 2023 02:00 PM AMBULATORY - PSYCHIATRY NO RTH [facility]EL [facility] Nov 25, 2023 08:15 AM AMBULATORY - PSYCHIATRY NO RTH [facility]EL [facility] Nov 25, 2023 09:00 AM AMBULATORY - PSYCHIATRY NO RTH [facility]ANGEL [facility] Nov 25, 2023 10:30 AM AMBULATORY - PSYCHIATRY NO RTH GRECIA RANGEL [facility] Nov 25, 2023 01:00 PM AMBULATORY - NONE BEN CHANDRA BRADLEYRIGO RANGEL [facility] Nov 26, 2023 08:15 AM AMBULATORY - PSYCHIATRY NO RTH GRECIA RANGEL [facility] Nov 26, 2023 09:00 AM AMBULATORY - PSYCHIATRY NO RTH GRECIA RANGEL [facility] Nov 26, 2023 10:30 AM AMBULATORY - PSYCHIATRY NO RTH GRECIA RANGEL [facility] Nov 26, 2023 11:30 AM AMBULATORY - PSYCHIATRY NO RTH GRECIA RANGEL [facility] Nov 27, 2023 08:15 AM AMBULATORY - PSYCHIATRY NO RTH GRECIA RANGEL VINCE IRINA Nov 27, 2023 09:00 AM AMBULATORY - PSYCHIATRY NO RTH GRECIA RANGEL VINCE IR[facility] Nov 27, 2023 10:30 AM AMBULATORY - PSYCHIATRY NO RTH GRECIA RANGEL [facility] Nov 28, 2023 08:15 AM AMBULATORY - PSYCHIATRY NO RTH GRECIA RANGEL VINCE IR[facility] Lab Results: +/- 30 days [...] Type Comment Nov 26, 2023 08:27 AM [facility] DRUG ABUSE SURVEY (NLR) URINE Specimen Type: URINE No comment entered. Ordering Provider: ADELFO KEEN Report Released Date/Time: Nov 25, 2023 08:35 AM Reporting Lab: [facility] [address] [address] Performing Lab: [address] [address] AMPHETAMINES-MOHIT NEG Cutoff - 1000 n g/mL COCAINE-MOHIT NEG Cutoff - 300 ng/mL CANNABINOIDS-MOHIT NEG Cutoff - 50 ng/ mL OPIATES-MOHIT NEG Cutoff - 300 ng/mL URINE BARBITURATES-MOHIT POS H Cutoff - 200 ng/mL URINE BENZODIAZEPINES-MOHIT NEG Cutoff - 200 ng/mL CREATININE, URINE (mg/dL) >400 mg/dL See Eval Nov 18, 2023 12:31 PM [facility] DRUG ABUSE SURVEY ([facility]) URINE Specimen Type: URINE No comment entered. Ordering Provider: BELKYS HOLLOWAY Report Released Date/Time: Nov 18, 2023 12:17 PM Reporting Lab: [address] [address] Performing Lab: [address] [address] AMPHETAMINES-MOHIT NEG Cutoff - 1000 n g/mL COCAINE-MOHIT NEG Cutoff - 300 ng/mL CANNABINOIDS-MOHIT NEG Cutoff - 50 ng/ mL OPIATES-MOHIT POS H Cutoff - 300 ng/mL URINE BARBITURATES-MOHIT POS H Cutoff - 200 ng/mL URINE BENZODIAZEPINES-MOHIT NEG Cutoff - 200 ng/mL CREATININE, URINE (mg/dL) 221 mg/dL See Eval Nov 13, 2023 07:51 AM [facility] PSA, TOTAL SERUM Specimen Ty pe: SERUM No comment entered. Ordering Provider: LAURITA BERNAL Report Released Date/Time: Nov 12, 2023 06:13 PM Reporting Lab: [address] [address] Performing Lab: [address] [address] PSA, TOTAL 1.18 ng/mL 0-4 Nov 11, 2023 06:40 AM [facility] BMP+ALBUMIN PLASMA Specimen Ty pe: PLASMA No comment entered. Ordering Provider: GIGI HORTON Report Released Date/Time: Nov 10, 2023 09:37 PM Reporting Lab: [facility] [address] [address] Performing Lab: [address] [address] CREATININE 1.1 mg/dL 0.6-1.3 GLUCOSE 72 mg/dL 70-109 SODIUM 139 mmol/L 135-145 POTASSIUM 4.0 mmol/L 3.5-5.1 CHLORIDE 102 mmol/L 100-109 CO2 29 mmol/L 22-29 ALBUMIN 2.5 g/dL L 3.4-5 CALCIUM 8.9 mg/dL 8.3-10.3 UREA NITROGEN 3 mg/dL L 5.0-20.0 EGFR CKD-EPI 2020 83 L >90 Nov 11, 2023 06:40 AM [facility] CBC WITH DIFFERENTIAL BLOOD Specimen Type: BL OOD No comment entered. Ordering Provider: GIGI HORTON Report Released Date/Time: Nov 10, 2023 09:37 PM Reporting Lab: [facility] [address] [address] Performing Lab: [address] [address] WBC 8.2 10*3/uL 3.6-10.0 RBC 3.50 10*6/uL [...] ABSOLUTE # Nov 11, 2023 02:46 AM [facility] MRSA SURVL NARES AGAR NARES Specimen Type: NA RES Comment: *MRSA SURVL NARES DNA Not Performed: Nov 11, 2023@07:39 by [id number] *PROFESSOR OF SPECIAL EDUCATION Reason: DNA TESTING NOT AVAILABLE-CULTURE ADDED Ordering Provider: GIGI HORTON Report Released Date/Time: Nov 10, 2023 09:37 PM Reporting Lab: [address] [address] Performing Lab: [address] [address] MRSA SURVL NARES AGAR Negative Negative Advance Directives: All historical and current Section Date Range: From patient's date of to the date document was created. This section includes ALL of a patient's completed or amended [place] Advance and Rescinded Directives. The entries below indicate that a directive exists for the patient, but an actual copy is not included with this document. The data comes from all [place] facilities. Date Advance Directives Provider Source Jul 30, 2016 ADVANCE DIRECTIVE DISCUSSION DOUG [facility] Radiology Reports: +/- 30 days of [...] the Encounter. The data comes from all [place] treatment facilities. Date/Time Radiology Report Provider Source Nov 06, 2023 04:00 PM OUTSIDE MRI: YAJAIRA SMITH [id number] -1975 M Exm Date: NOV 06, 2023@16:00 Req Phys: JOSE DAVID LEBLANC Loc: [facility] CARE-MRI (Req'g Loc) Img Loc: OUTSIDE MRI Service: Unknown (Case [id number] COMPLETE)OUTSIDE MRI (MRI Detailed) CPT:72400 Reason for Study: [facility] Clinical History: [facility] MR T-spine Report Status: Electronically Filed Date Reported: Report: [facility] FOR COMPARISON ONLY Impression: FOR COMPARISON ONLY Primary Diagnostic Code: IMAGING VERIFIED BY: / *ELECTRONICALLY FILED* [facility] Nov 06, 2023 03:00 PM OUTSIDE MRI: YAJAIRA SMITH [id number] -1975 M Exm Date: NOV 06, 2023@15:00 Req Phys: JOSE DAVID ELBLANC Loc: COM CARE-MRI (Req'g Loc) Img Loc: OUTSIDE MRI Service: Unknown (Case [id number] COMPLETE)OUTSIDE MRI (MRI Detailed) CPT:10460 Reason for Study: [facility] Clinical History: [facility] MR L-spine Report Status: Electronically Filed Date Reported: Report: STUDY DONE [facility]IDE [facility] FOR COMPARISON ONLY Impression: FOR COMPARISON ONLY Primary Diagnostic Code: IMAGING VERIFIED BY: / *ELECTRONICALLY FILED* [facility] Nov 06, 2023 02:00 PM OUTSIDE MRI: YAJAIRA SMITH [id number] -1975 M Exm Date: NOV 06, 2023@14:00 Req Phys: JOSE DAVID LEBLANC Pat Loc: COM CARE-MRI (Req'g Loc) Img Loc: OUTSIDE MRI Service: Unknown (Case [id number] COMPLETE)OUTSIDE MRI (MRI Detailed) CPT:45979 Reason for Study: [facility] Clinical History: [facility] MR C-spine Report Status: Electronically Filed Date Reported: Report: STUDY DONE [facility]IDE [facility] FOR COMPARISON ONLY Impression: FOR COMPARISON ONLY Primary Diagnostic Code: IMAGING VERIFIED BY: / *ELECTRONICALLY FILED* [facility] Nov 06, 2023 01:00 PM OUTSIDE MRI: YAJAIRA SMITH [id number] -1975 M Exm Date: NOV 06, 2023@13:00 Req Phys: JOSE DAVID LEBLANC Loc: COM CARE-MRI (Req'g Loc) Img Loc: OUTSIDE MRI Service: Unknown (Case [id number] COMPLETE)OUTSIDE MRI (MRI Detailed) CPT:76979 Reason for Study: [facility]-OUTSIDE MRI Clinical History: [facility]-OUTSIDE MRI MR Head Report Status: Electronically Filed Date Reported: Report: STUDY DONE OUTSIDE THE CO. FOR COMPARISON ONLY Impression: FOR COMPARISON ONLY Primary Diagnostic Code: IMAGING VERIFIED BY: / *ELECTRONICALLY FILED* [facility] Nov 06, 2023 06:00 AM OUTSIDE GENERAL RA DIOLOGY: YAJAIRA SMITH [id number] -1975 M Exm Date: NOV 06, 2023@06:00 Req Phys: JOSE DAVID LEBLANC Loc: COM CARE-RADIOLOGY GENERAL (Re Img Loc: OUTSIDE GENERAL RADIOLOGY Service: Unknown (Case [id number] COMPLETE)OUTSIDE GENERAL RADIOLOGY (RAD Detailed) CPT:09698 Reason for Study: [facility]-General Radiology Clinical History: [facility]General Radiology [facility] Report Status: Electronically Filed Date Reported: Report: STUDY DONE OUTSIDE THE CO. FOR COMPARISON ONLY Impression: FOR COMPARISON ONLY Primary Diagnostic Code: IMAGING VERIFIED BY: / *ELECTRONICALLY FILED* [facility] Nov 05, 2023 01:[address] SCAN: YAJAIRA SMITH [id number] -1975 M Exm Date: NOV 05, 2023@13:00 Req Phys: JOSE DAVID LEBLANC Loc: COM CARE-CT SCAN (Req'g Loc) Img Loc: OUTSIDE CT Service: Unknown (Case [id number] COMPLETE)OUTSIDE CT SCAN (CT Detailed) CPT:05826 Reason for Study: [facility]Outside CT Scan Clinical History: [facility]Outside CT Scan CT Head Report Status: Electronically Filed Date Reported: Report: [facility]UDY DONE [facility] FOR COMPARISON ONLY Impression: FOR COMPARISON ONLY Primary Diagnostic Code: IMAGING VERIFIED BY: / *ELECTRONICALLY FILED* [facility] Nov 01, 2023 08:[address] SCAN: LUISYAJAIRA REEVESEL [id number] -1975 M Exm Date: NOV 01, 2023@08:00 Req Phys: JOSE DAVID LEBLANC Loc: COM CARE-CT SCAN (Req'g Loc) Img Loc: OUTSIDE CT Service: Unknown (Case [id number] COMPLETE)OUTSIDE CT SCAN (CT Detailed) CPT:04121 Reason for Study: [facility]Outside CT Scan Clinical History: [facility]Outside CT Scan CT A/P Report Status: Electronically Filed Date Reported: Report: STUDY DONE [facility] FOR COMPARISON ONLY Impression: FOR COMPARISON ONLY Primary Diagnostic Code: IMAGING VERIFIED BY: / *ELECTRONICALLY FILED* [facility] Encounter Notes: All associated encounter notes This section contains the clinical notes associated to the Encounter. Date/Time Encounter Note(s) Provider Source Nov 05, 2023 03:26 PM SUICIDE PREVENTION NOTE: LOCAL TITLE: SUICIDE RISK MANAGEMENT FOLLOW-UP STANDARD TITLE: SUICIDE PREVENTION NOTE DATE OF NOTE: NOV 05, 2023@15:26 ENTRY DATE: NOV 05, 2023@15:27:03 AUTHOR: MARQUIS VELASCO COSIGNER: URGENCY: STATUS: COMPLETED Flag is going to be transferred to [place], [place] on this date and receives services in that facility. /ben/ ELIGIO VICENTE [facility] Signed: 11/05/2023 15:27 ELIGIO VELASCO [facility]
--- OUTSIDE RECORDS SUMMARY | 2023-11-10 05:09 | XMS_ITS | Encounter Summary ---
Author Name [facility] Address [address] [place] [address] Care Team Providers Care Guest Experience Captain Name Role Phone TAMARA VALENCIA Primary Care Provider UnavailDONTA Lopez Primary Care Provider Unavailab sykes Insurance Providers: [...] section includes the information on record at [place] for the Encounter. Date/Time Encounter Type Encounter Description Reason Pro vider Source Nov 10, 2023 10:09 AM Outpatient Encounter COMMUNITY CARE CONSULT IHE Encounter Template Text not used by [facility] Plan of Treatment: Future Appointments (+ 6 months) and Future Tests (+/- 45 days) The Plan of Treatment section includes future care activities for the patient from all [facility] treatment[facility]ilities. This section includes future appointments and future orders which are active, pending or scheduled. Future Appointments This section includes appointments that were scheduled to occur 6 months from the date of the Encounter, up to a maximum of 20 appointments. The data comes from all [place] treatment facilities. Appointment Date/Time Appointment Type Appointme nt Facility Name Nov 18, 2023 11:30 AM AMBULATORY - PS[facility] Nov 20, 2023 09:30 AM AMBULATORY - PS[facility] Nov 21, 2023 08:30 AM AMBULATORY - [facility]IATRY [facility] Nov 21, 2023 11:00 AM AMBULATORY - PS[facility]CHIATRY [facility] Nov 22, 2023 08:15 AM AMBULAT[facility] - [facility]CH[facility]ATRY [facility] Nov 22, 2023 09:00 AM AMBULATORY - PS[facility]CHIATRY [facility] Nov 22, 2023 10:30 AM AMBULATORY - PSYCHIATRY [facility] Nov 22, 2023 02:00 PM AMBULATORY - PSYCHIATRY [facility] Nov 25, 2023 08:15 AM AMBULATORY - PSYCHIATRY [facility] Nov 25, 2023 09:00 AM AMBULATORY - PSYCHIATRY [facility] Nov 25, 2023 10:30 AM AMBULATORY - PSYCHIATRY [facility] Nov 25, 2023 01:00 PM AMBULATORY - NONE [facility] Nov 26, 2023 08:15 AM AMBULATORY - PSYCHIATRY [facility] Nov 26, 2023 09:00 AM AMBULATORY - PSYCHIATRY [facility] Nov 26, 2023 10:30 AM AMBULATORY - PSYCHIATRY [facility] Nov 26, 2023 11:30 AM AMBULATORY - PSYCHIATRY [facility] Nov 27, 2023 08:15 AM AMBULATORY - [...] Nov 26, 2023 08:27 AM [facility] DRUG ABUSE SURVEY (NLR) URINE Specimen Type: URINE No comment entered. Ordering Provider: ADELFO KEEN Report Released Date/Time: Nov 25, 2023 08:35 AM Reporting Lab: [address] [address] Performing Lab: [address] [address] AMPHETAMINES-MOHIT NEG Cutoff - 1000 n g/mL COCAINE-MOHIT NEG Cutoff - 300 ng/mL CANNABINOIDS-MOHIT NEG Cutoff - 50 ng/ mL OPIATES-MOHIT NEG Cutoff - 300 ng/mL URINE BARBITURATES-MOHIT POS H Cutoff - 200 ng/mL URINE BENZODIAZEPINES-MOHIT NEG Cutoff - 200 ng/mL CREATININE, URINE (mg/dL) >400 mg/dL See Eval Nov 18, 2023 12:31 PM [facility] DRUG ABUSE SURVEY (NLR) URINE Specimen Type: URINE No comment entered. Ordering Provider: BELKYS HOLLOWAY Report Released Date/Time: Nov 18, 2023 12:17 PM Reporting Lab: [address] [address] Performing Lab: [address] [address] AMPHETAMINES-MOHIT NEG Cutoff - 1000 n g/mL COCAINE-MOHIT NEG Cutoff - 300 ng/mL CANNABINOIDS-MOHIT NEG Cutoff - 50 ng/ mL OPIATES-MOHIT POS H Cutoff - 300 ng/mL URINE BARBITURATES-MOHIT POS H Cutoff - 200 ng/mL URINE BENZODIAZEPINES-MOHIT NEG Cutoff - 200 ng/mL CREATININE, URINE (mg/dL) 221 mg/dL See Eval Nov 13, 2023 07:51 AM [facility] PSA, TOTAL SERUM Specimen Ty pe: SERUM No comment entered. Ordering Provider: LAURITA BERNAL Report Released Date/Time: Nov 12, 2023 06:13 PM Reporting Lab: [address] [address] Performing Lab: [address] [address] PSA, TOTAL 1.18 ng/mL 0-4 Nov 11, 2023 06:40 AM [facility] BMP+ALBUMIN PLASMA Specimen Ty pe: PLASMA No comment entered. Ordering Provider: GIGI HORTON Report Released Date/Time: Nov 10, 2023 09:37 PM Reporting Lab: [place] [id number] [address] Performing Lab: [address] [address] CREATININE 1.1 mg/dL 0.6-1.3 GLUCOSE 72 mg/dL 70-109 SODIUM 139 mmol/L 135-145 POTASSIUM 4.0 mmol/L 3.5-5.1 CHLORIDE 102 mmol/L 100-109 CO2 29 mmol/L 22-29 ALBUMIN 2.5 g/dL L 3.4-5 CALCIUM 8.9 mg/dL 8.3-10.3 UREA NITROGEN 3 mg/dL L 5.0-20.0 EGFR CKD-EPI 2020 83 L >90 Nov 11, 2023 06:40 AM [facility] CBC WITH DIFFERENTIAL BLOOD Specimen Type: BL OOD No comment entered. Ordering Provider: GIGI HORTON Report Released Date/Time: Nov 10, 2023 09:37 PM Reporting Lab: [address] [address] Performing Lab: [address] [address] WBC 8.2 10*3/uL 3.6-10.0 RBC 3.50 10*6/uL [...] ABSOLUTE # Nov 11, 2023 02:46 AM [facility] MRSA SURVL NARES AGAR NARES Specimen Type: NA RES Comment: *MRSA SURVL NARES DNA Not Performed: Nov 11, 2023@07:39 by [id number] *TOLL TEST WORKER Reason: DNA TESTING NOT AVAILABLE-CULTURE ADDED Ordering Provider: GIGI HORTON Report Released Date/Time: Nov 10, 2023 09:37 PM Reporting Lab: [facility] [address] [address] Performing Lab: [address] [address] MRSA SURVL NARES AGAR Negative Negative Advance Directives: All historical and current Section Date Range: From patient's date of to the date document was created. This section includes ALL of a patient's completed or amended [place] Advance and Rescinded Directives. The entries below indicate that a directive exists for the patient, but an actual copy is not included with this document. The data comes from all [place] facilities. Date Advance Directives Provider Source Jul 30, 2016 ADVANCE DIRECTIVE DISCUSSION [facility] Radiology Reports: +/- 30 days of the [...] the Encounter. The data comes from all [place] treatment facilities. Date/Time Radiology Report Provider Source Nov 06, 2023 04:00 PM OUTSIDE MRI: YAJAIRA SMITH [id number] -1975 M Exm Date: NOV 06, 2023@16:00 Req Phys: JOSE DAVID LEBLANC Pat Loc: COM CARE-MRI (Req'g Loc) Img Loc: OUTSIDE MRI Service: Unknown (Case [id number] COMPLETE)OUTSIDE MRI (MRI Detailed) CPT:47604 Reason for Study: [facility] CARE-OUTSIDE MRI Clinical History: COMM[facility]ITY CARE-OUTSIDE MRI MR T-spine Report Status: Electronically Filed Date Reported: Report: [facility] FOR COMPARISON ONLY Impression: FOR COMPARISON ONLY Primary Diagnostic Code: IMAGING VERIFIED BY: / *ELECTRONICALLY FILED* [facility] Nov 06, 2023 03:00 PM OUTSIDE MRI: YAJAIRA SMITH [id number] -1975 M Exm Date: NOV 06, 2023@15:00 Req Phys: JOSE DAVID LEBLANC Loc: COM CARE-MRI (Req'g Loc) Img Loc: OUTSIDE MRI Service: Unknown (Case [id number] COMPLETE)OUTSIDE MRI (MRI Detailed) CPT:77308 Reason for Study: [facility] CARE-OUTSIDE MRI Clinical History: [facility] CARE-OUTSIDE MRI MR L-spine Report Status: Electronically Filed Date Reported: Report: STUDY DONE [facility]IDE [facility] FOR COMPARISON ONLY Impression: FOR COMPARISON ONLY Primary Diagnostic Code: IMAGING VERIFIED BY: / *ELECTRONICALLY FILED* [facility] Nov 06, 2023 02:00 PM OUTSIDE MRI: YAJAIRA SMITH [id number] -1975 M Exm Date: NOV 06, 2023@14:00 Req Phys: JOSE DAVID LEBLANC Loc: COM CARE-MRI (Req'g Loc) Img Loc: OUTSIDE MRI Service: Unknown (Case [id number] COMPLETE)OUTSIDE MRI (MRI Detailed) CPT:47869 Reason for Study: COMM[facility]ITY CARE-OUTSIDE MRI Clinical History: COMM[facility]ITY CARE-OUTSIDE MRI MR C-spine Report Status: Electronically Filed Date Reported: Report: STUDY DONE OUT[facility]IDE THE [facility]. FOR COMPARISON ONLY Impression: FOR COMPARISON ONLY Primary Diagnostic Code: IMAGING VERIFIED BY: / *ELECTRONICALLY FILED* [facility] Nov 06, 2023 01:00 PM OUTSIDE MRI: YAJAIRA SMITH [id number] -1975 M Exm Date: NOV 06, 2023@13:00 Req Phys: JOSE DAVID LEBLANC Loc: COM CARE-MRI (Req'g Loc) Img Loc: OUTSIDE MRI Service: Unknown (Case [id number] COMPLETE)OUTSIDE MRI (MRI Detailed) CPT:45004 Reason for Study: [facility] CARE-OUTSIDE MRI Clinical History: [facility] CARE-OUTSIDE MRI MR Head Report Status: Electronically Filed Date Reported: Report: STUDY DONE [place]IDE THE [place]. FOR COMPARISON ONLY Impression: FOR COMPARISON ONLY Primary Diagnostic Code: IMAGING VERIFIED BY: / *ELECTRONICALLY FILED* [facility] Nov 06, 2023 06:00 AM OUTSIDE GENERAL RA DIOLOGY: YAJAIRA SMITH [id number] -1975 M Exm Date: NOV 06, 2023@06:00 Req Phys: JOSE DAVID LEBLANC Loc: COM CARE-RADIOLOGY GENERAL (Re Img Loc: OUTSIDE GENERAL RADIOLOGY Service: Unknown (Case [id number] COMPLETE)OUTSIDE GENERAL RADIOLOGY (RAD Detailed) CPT:99521 Reason for Study: [facility] Care-General Radiology Clinical History: [facility] Care-General Radiology LP Report Status: Electronically Filed Date Reported: Report: STUDY DONE [place]IDE THE [place] FOR COMPARISON ONLY Impression: FOR COMPARISON ONLY Primary Diagnostic Code: IMAGING VERIFIED BY: / *ELECTRONICALLY FILED* [facility] Nov 05, 2023 01:[address] SCAN: YAJAIRA SMITH [id number] -1975 M Exm Date: NOV 05, 2023@13:00 Req Phys: JOSE DAVID LEBLANC Loc: COM CARE-CT SCAN (Req'g Loc) Img Loc: OUTSIDE CT Service: Unknown (Case [id number] COMPLETE)OUTSIDE CT SCAN (CT Detailed) CPT:18361 Reason for Study: [facility]-Outside CT Scan Clinical History: [facility]-Outside CT Scan CT Head Report Status: Electronically Filed Date Reported: Report: STUDY DONE [facility]IDE [facility] FOR COMPARISON ONLY Impression: FOR COMPARISON ONLY Primary Diagnostic Code: IMAGING VERIFIED BY: / *ELECTRONICALLY FILED* [facility] Nov 01, 2023 08:[address] SCAN: YAJAIRA SMITH [id number] -1975 M Exm Date: NOV 01, 2023@08:00 Req Phys: JOSE DAVID LEBLANC Pat Loc: COM CARE-CT SCAN (Req'g Loc) Img Loc: OUTSIDE CT Service: Unknown (Case [id number] COMPLETE)OUTSIDE CT SCAN (CT Detailed) CPT:34357 Reason for Study: [facility]-Outside CT Scan Clinical History: [facility]-Outside CT Scan CT A/P Report Status: Electronically Filed Date Reported: Report: STUDY DONE [facility]IDE THE [facility]. FOR COMPARISON ONLY Impression: FOR COMPARISON ONLY Primary Diagnostic Code: IMAGING VERIFIED BY: / *ELECTRONICALLY FILED* [facility] Encounter Notes: All associated encounter notes This section contains the clinical notes associated to the Encounter. Date/Time Encounter Note(s) Provider Source Nov 10, 2023 10:09 AM NONVA NOTE: LOCAL TITLE: [facility] CARE-[facility] CARE COORD PLAN STANDARD TITLE: NONVA NOTE DATE OF NOTE: NOV 10, 2023@10:09 ENTRY DATE: NOV 10, 2023@10:09:40 AUTHOR: MAURICIO VALENCIA COSIGNER: URGENCY: STATUS: COMPLETED Emergency Notification Intake Date Presenting to the Facility: Nov Method of Contact: PATIENT REQUESTS TRANSFER [facility] [place]: Hospital: [facility] Address: City: [place] State: [place] Zip Code: [facility] Facility Point of Contact: Name: DR. PRADO Chief complaint: BACTEREMIA W/STAPHYLITIS & ALCOHOL USE DISORDER Primary Diagnosis: Disposition Unknown at time of intake note entry /ben/ MAURICIO VALENCIA SCORING MACHINE OPERATOR/AOD Signed: 11/10/2023 10:14 MAURICIO VALENCIA [place] [facility]
--- OUTSIDE RECORDS SUMMARY | 2023-11-10 05:20 | XMS_ITS | Encounter Summary ---
Author Name [facility] [place] Address [address] [place] [address] Care Team Providers Care Attractions Associate Name Role Phone TAMARA VALENCIA Primary Care Provider UnavailDONTA Lopez Primary Care Provider Unavailab onel Insurance Providers: All historical and current Section [...] section includes the information on record at [place] for the Encounter. Date/Time Encounter Type Encounter Description Reason Pro vider Source Nov 10, 2023 10:20 AM Outpatient Encounter PRIMARY CARE/MEDICINE IHE Encounter Template Text not used by [place] Plan of Treatment: Future Appointments (+ 6 [...] 20 appointments. The data comes from all [place] treatment facilities. Appointment Date/Time Appointment Type Appointme [...] 10:30 AM AMBULATORY - PSYCHIATRY NO RTH [facility] Nov 22, 2023 02:00 PM AMBULATORY - PSYCHIATRY NO RTH [facility] Nov 25, 2023 08:15 AM AMBULATORY [...] AMBULATORY - PSYCHIATRY NO RTH [facility]OB[facility] Nov 26, 2023 10:30 AM AMBULATORY - PSYCHIATRY NO RTH [facility] Nov 26, 2023 11:30 AM AMBULATORY - PSYCHIATRY NO RTH GRECIA RANGEL VINCE AREVALO Nov 27, 2023 08:15 AM AMBULATORY - PSYCHIATRY NO RTH [facility] Nov 27, 2023 09:00 AM AMBULATORY [...] Nov 25, 2023 08:35 AM Reporting Lab: [address] [address] Performing Lab: [address] [address] AMPHETAMINES-MOHIT NEG Cutoff - 1000 n g/mL COCAINE-MOHIT NEG Cutoff - 300 ng/mL CANNABINOIDS-MOHIT NEG Cutoff - 50 ng/ mL OPIATES-MOHIT NEG Cutoff - 300 ng/mL URINE BARBITURATES-MOHIT POS H Cutoff - 200 ng/mL URINE BENZODIAZEPINES-MOHIT NEG Cutoff - 200 ng/mL CREATININE, URINE (mg/dL) >400 mg/dL See Eval Nov 18, 2023 12:31 PM [facility] DRUG ABUSE SURVEY (NLR) URINE Specimen Type: URINE No comment entered. Ordering Provider: BELKYS HOLLOWAY Report Released Date/Time: Nov 18, 2023 12:17 PM Reporting Lab: [address] [address] Performing Lab: [address] [address] AMPHETAMINES-MOHIT NEG Cutoff - 1000 n g/mL COCAINE-MOHIT NEG Cutoff - 300 ng/mL CANNABINOIDS-MOHIT NEG Cutoff - 50 ng/ mL OPIATES-MOHIT POS H Cutoff - 300 ng/mL URINE BARBITURATES-MOHIT POS H Cutoff - 200 ng/mL URINE BENZODIAZEPINES-MOHIT NEG Cutoff - 200 ng/mL CREATININE, URINE (mg/dL) 221 mg/dL See Eval Nov 13, 2023 07:51 AM [facility] PSA, TOTAL SERUM Specimen Ty pe: SERUM No comment entered. Ordering Provider: LAURITA BERNAL Report Released Date/Time: Nov 12, 2023 06:13 PM Reporting Lab: [address] [address] Performing Lab: [address] [address] PSA, TOTAL 1.18 ng/mL 0-4 Nov 11, 2023 06:40 AM [facility] BMP+ALBUMIN PLASMA Specimen Ty pe: PLASMA No comment entered. Ordering Provider: GIGI HORTON Report Released Date/Time: Nov 10, 2023 09:37 PM Reporting Lab: [place] [id number] [address] Performing Lab: [address] [address] CREATININE 1.1 mg/dL 0.6-1.3 GLUCOSE 72 mg/dL 70-109 SODIUM 139 mmol/L 135-145 POTASSIUM 4.0 mmol/L 3.5-5.1 CHLORIDE 102 mmol/L 100-109 CO2 29 mmol/L 22-29 ALBUMIN 2.5 g/dL L 3.4-5 CALCIUM 8.9 mg/dL 8.3-10.3 UREA NITROGEN 3 mg/dL L 5.0-20.0 EGFR CKD-EPI 2020 83 L >90 Nov 11, 2023 06:40 AM [facility] CBC WITH DIFFERENTIAL BLOOD Specimen Type: BL OOD No comment entered. Ordering Provider: GIGI HORTON Report Released Date/Time: Nov 10, 2023 09:37 PM Reporting Lab: [address] [address] Performing Lab: [address] [address] WBC 8.2 10*3/uL 3.6-10.0 RBC 3.50 10*6/uL [...] ABSOLUTE # Nov 11, 2023 02:46 AM [facility] MRSA SURVL NARES AGAR NARES Specimen Type: NA RES Comment: *MRSA SURVL NARES DNA Not Performed: Nov 11, 2023@07:39 by [id number] *MEDICAL RECEPTIONIST Reason: DNA TESTING NOT AVAILABLE-CULTURE ADDED Ordering Provider: GIGI HORTON Report Released Date/Time: Nov 10, 2023 09:37 PM Reporting Lab: [address] [address] Performing Lab: [address] [address] MRSA SURVL NARES AGAR Negative Negative Vital Signs: All taken on the encounter date This section contains inpatient and outpatient Vital Signs collected on the date of the Encounter. Date/Time Temperature Pulse Blood Pressure Respiratory Rate SP02 Pain Height Weight Body Mass Index Source Nov 10, 2023 11:25 PM 6 [facility] Nov 10, 2023 10:38 PM 9 [facility] Nov 10, 2023 10:18 PM 9 [facility] Nov 10, 2023 09:55 PM 99.6 74 158/97 17 97 9 [facility] Advance Directives: All historical and current Section Date Range: From patient's date of to the date document was created. This section includes ALL of a patient's completed or amended [place] Advance and Rescinded Directives. The entries below indicate that a directive exists for the patient, but an actual copy is not included with this document. The data comes from all [place] facilities. Date Advance Directives Provider Source Jul 30, 2016 ADVANCE DIRECTIVE DISCUSSION DOUG CASH [facility] Radiology Reports: +/- 30 days of the [...] the Encounter. The data comes from all [place] treatment facilities. Date/Time Radiology Report Provider Source Nov 06, 2023 04:00 PM OUTSIDE MRI: YAJAIRA SMITH [id number] -1975 M Exm Date: NOV 06, 2023@16:00 Req Phys: JOES DAVID LEBLANC Loc: COM CARE-MRI (Req'g Loc) Img Loc: OUTSIDE MRI Service: Unknown (Case [id number] COMPLETE)OUTSIDE MRI (MRI Detailed) CPT:79328 Reason for Study: [facility] CARE-OUTSIDE MRI Clinical History: [facility]-OUTSIDE MRI MR T-spine Report Status: Electronically Filed Date Reported: Report: [facility] FOR [facility]PARISON ONLY Impression: FOR COMPARISON ONLY Primary Diagnostic Code: IMAGING VERIFIED BY: / *ELECTRONICALLY FILED* [facility] Nov 06, 2023 03:00 PM OUTSIDE MRI: YAJAIRA SMITH [id number] -1975 M Exm Date: NOV 06, 2023@15:00 Req Phys: JOSE DAVID LEBLANC Loc: COM CARE-MRI (Req'g Loc) Img Loc: OUTSIDE MRI Service: Unknown (Case [id number] COMPLETE)OUTSIDE MRI (MRI Detailed) CPT:24645 Reason for Study: COMM[facility]ITY CARE-OUTSIDE MRI Clinical History: [facility]-OUTSIDE MRI MR L-spine Report Status: Electronically Filed Date Reported: Report: STUDY DONE [facility] FOR COMPARISON ONLY Impression: FOR COMPARISON ONLY Primary Diagnostic Code: IMAGING VERIFIED BY: / *ELECTRONICALLY FILED* [facility] Nov 06, 2023 02:00 PM OUTSIDE MRI: YAJAIRA SMITH [id number] -1975 M Exm Date: NOV 06, 2023@14:00 Req Phys: JOSE DAVID LEBLANC Loc: COM CARE-MRI (Req'g Loc) Img Loc: OUTSIDE MRI Service: Unknown (Case [id number] COMPLETE)OUTSIDE MRI (MRI Detailed) CPT:13450 Reason for Study: COMMUNITY CARE-OUTSIDE MRI Clinical History: [facility] CARE-OUTSIDE MRI MR C-spine Report Status: Electronically Filed Date Reported: Report: STUDY DONE [facility] FOR COMPARISON ONLY Impression: FOR COMPARISON ONLY Primary Diagnostic Code: IMAGING VERIFIED BY: / *ELECTRONICALLY FILED* [facility] Nov 06, 2023 01:00 PM OUTSIDE MRI: YAJAIRA SMITH [id number] -1975 M Exm Date: NOV 06, 2023@13:00 Req Phys: JOSE DAVID LEBLANC Loc: COM CARE-MRI (Req'g Loc) Img Loc: OUTSIDE MRI Service: Unknown (Case [id number] COMPLETE)OUTSIDE MRI (MRI Detailed) CPT:47334 Reason for Study: COMM[facility]ITY CARE-OUTSIDE MRI Clinical History: COMM[facility]ITY CARE-OUTSIDE MRI MR Head Report Status: Electronically Filed Date Reported: Report: STUDY DONE [facility] FOR COMPARISON ONLY Impression: FOR COMPARISON ONLY Primary Diagnostic Code: IMAGING VERIFIED BY: / *ELECTRONICALLY FILED* [facility] Nov 06, 2023 06:00 AM OUTSIDE GENERAL RA DIOLOGY: YAJAIRA SMITH [id number] -1975 M Exm Date: NOV 06, 2023@06:00 Req Phys: JOSE DAVID LEBLANC Loc: COM CARE-RADIOLOGY GENERAL (Re Img Loc: OUTSIDE GENERAL RADIOLOGY Service: Unknown (Case [id number] COMPLETE)OUTSIDE GENERAL RADIOLOGY (RAD Detailed) CPT:69453 Reason for Study: [facility]-General Radiology Clinical History: [facility]-General Radiology LP Report Status: Electronically Filed Date Reported: Report: STUDY DONE [facility] FOR COMPARISON ONLY Impression: FOR COMPARISON ONLY Primary Diagnostic Code: IMAGING VERIFIED BY: / *ELECTRONICALLY FILED* [facility] Nov 05, 2023 01:[address] SCAN: YAJAIRA SMITH [id number] -1975 M Exm Date: NOV 05, 2023@13:00 Req Phys: JOSE DAVID LEBLANC Loc: COM CARE-CT SCAN (Req'g Loc) Img Loc: OUTSIDE CT Service: Unknown (Case [id number] COMPLETE)OUTSIDE CT SCAN (CT Detailed) CPT:93417 Reason for Study: [facility]-Outside CT Scan Clinical History: [facility]-Outside CT Scan CT Head Report Status: Electronically Filed Date Reported: Report: STUDY DONE [facility]IDE [facility] FOR COMPARISON ONLY Impression: FOR COMPARISON ONLY Primary Diagnostic Code: IMAGING VERIFIED BY: / *ELECTRONICALLY FILED* [facility] Nov 01, 2023 08:[address] SCAN: YAJAIRA SMITH [id number] -1975 M Exm Date: NOV 01, 2023@08:00 Req Phys: JOSE DAVID LEBLANC Loc: COM CARE-CT SCAN (Req'g Loc) Img Loc: OUTSIDE CT Service: Unknown (Case [id number] COMPLETE)OUTSIDE CT SCAN (CT Detailed) CPT:90708 Reason for Study: [facility]-Outside CT Scan Clinical History: Community Care-Outside CT Scan CT A/P Report Status: Electronically Filed Date Reported: Report: STUDY DONE [facility] FOR COMPARISON ONLY Impression: FOR COMPARISON ONLY Primary Diagnostic Code: IMAGING VERIFIED BY: / *ELECTRONICALLY FILED* [facility] Encounter Notes: All associated encounter notes This section contains the clinical notes associated to the Encounter. Date/Time Encounter Note(s) Provider Source Nov 10, 2023 10:20 AM PHYSICIAN NOTE: LOCAL TITLE: MOD NOTE STANDARD TITLE: PHYSICIAN NOTE DATE OF NOTE: NOV 10, 2023@10:20 ENTRY DATE: NOV 10, 2023@10:20:17 AUTHOR: JORY PARIKH COSIGNER: URGENCY: STATUS: COMPLETED MD INTER-FACILITY TRANSFER IN SECTION I: TYPE AND LEVEL OF SERVICES REQUIRED Diagnosis, description of treatment prior to transfer, description of further treatment contemplated, level of care prior to transfer. Describe vital signs, significant history, physical findings, mental status, lab test, airway, ECG, ect. Case discussed with Dr. Bates at [facility] in [place], [place]. This is a 47 y.o M with PTSD, depression, alcohol use disorder who presented to their facility around 09/30 with CC of abdominal pain, nausea/vomiting, and mild intoxication leading to alcohol withdrawal sxs as well. Diagnosed with mild pancreatitis and suspected pneumonia on admission, started on IV zosyn. Blood cultures from 09/30 started growing 4/4 bottles with Staph Aureus and another 2/4 bottles growing Staph Simulans. Antibiotics changed to Ceftriaxone after ID and susceptibilities and later changed to Cefazolin currently. Cultures 10/03 are the first without any growth/negative. He had TTE and NISHANT which both did not show any evidence of heart vegetations. He c/o headache and neck pain so underwent MRI brain and MRI c-spine, which did not show any osteomyelitis or abscess. does have a metal plate in his elbow and a few surgical pins in some of his fingers but they do not have a specific source for the S.A. unless it came from initial pneumonia which is possible. Crystal also endorsed some SI and depression at initial presentation and was on a 96hr hold initially and later taken off and not requiring any FCG. He reports interest in [facility] programming in [facility] after his hospital stay and he has requested transfer to [facility] for continued inpatient care as long as medically indicated. VS below. Will accept for ambulance transfer today to general med/surg [place] bed. Team assignment will be given on patient's arrival to [facility]. SECTION II: CONDITION OF PATIENT ON TRANSFER Is patient medically stable for transfer? Yes Is the patient behaviorally stable for transfer? Yes Enter vital signs: Temp: 98.6F Pulse: 72 Respiration: 16 B/P: 112/74 Pain: x MEWS (Modified Early Warning System) Respirtory Rate per minute: (2) Less than 8/minute (0) 9-14/minute (1) 15-20/minute (2) 21-20/minute (3) more than 30/minute Heart Rate per minute: (2) Less than 40/minute (1) 40-50/minute (0) 51-100/minute (1) 101-110/minute (2) 111-129/minute (3) More than 129/minute Systolic Blood Pressure: (3) Less than 70 (2) 71-80 (1) 81-100 (0) 101-199 (2) 200 or more Conscious level (AVPU): (3) Unresponsive (2) Responds to pain (1) Responds to voice (0) Alert (1) New agitation/confusion Temperature (Fahrenheit): (2) Less than 95 (1) 95.1-96.8 (0) 96.9-100.4 (1) 100.5-101.3 (2) More than 101.4 Hourly Urine for 2 hours: (3) Less than 10mls/hr. (2) Less than 30mls/hr. (1) Less than 45mls/hr. (0) Greater than 45mls/hr. (0) N/A patient just arrived Total Score = 1 SECTION III: MODE OF TRANSPORTATION Special mode of transport/equipment required: O2, IV, Monitor, Full Life Support IV Medications of other treatment on route: AMBULANCE SECTION IV: INFORMATION TO BE SENT WITH PATIENT Complete medical records, discharge summary, transfer note, ER notes, clinic notes, lab reports, x-rays, ECG, Other: SECTION V: DECISION [X] Accepted (complete the following items) Name and [place] of [place] Accepting Physician: MD Mando Accept to med/surg [place] bed; Team assignment on arrival to [facility]. /ben/ JORY PARIKH M.D. ATTENDING PHYSICIAN Signed: 11/10/2023 10:37 Receipt Acknowledged By: 11/10/2023 19:17 /ben/ DIONNE CAPONE STAFF PHYSICIAN JORY PARIKH [facility]
--- OUTSIDE RECORDS SUMMARY | 2023-11-22 08:00 | XMS_ITS | Encounter Summary ---
Author Name [facility] Address [address] [place] [address] Care Team Providers Care Vocational Examiner Name Role Phone TAMARA VALENCIA Primary Care Provider UnavailDONTA Lopez Primary Care Provider Taylor sykes Insurance Providers: [...] section includes the information on record at [place] for the Encounter. Date/Time Encounter Type Encounter Description Reason Pro vider Source Nov 22, 2023 01:00 PM Outpatient Encounter SUBSTANCE USE DISORDER IND IHE Encounter Template Text not used by [...] 20 appointments. The data comes from all [place] treatment facilities. Appointment Date/Time Appointment Type Appointme nt Facility Name Nov 25, 2023 08:15 AM AMBULATORY - [facility]RY [facility] Nov 25, 2023 09:00 AM AMBULAT[facility] - [facility] Nov 25, 2023 10:30 AM AMBULATORY - [facility] Nov 25, 2023 01:00 PM AM[facility]ATORY - NONE [facility] Nov 26, 2023 08:15 AM AMBULAT[facility] - [facility] Nov 26, 2023 09:00 AM AMBULATORY - [facility] Nov 26, 2023 10:30 AM AMBUL[facility]ORY - [facility] Nov 26, 2023 11:30 AM AMBULAT[facility] - [facility] Nov 27, 2023 08:15 AM AMBUL[facility] - [facility] Nov 27, 2023 09:00 AM AMBUL[facility] - [facility] Nov 27, 2023 10:30 AM AMBULATORY - [facility] Nov 28, 2023 08:15 AM AMBUL[facility] - [facility] Dec 02, 2023 12:30 PM [facility]ORY - [facility]ONE [facility] Dec 30, 2023 01:30 PM AMBULATORY - NONE [facility] Feb 26, 2024 09:00 AM AMBULATORY - NONE [facility] Feb 28, 2024 11:00 AM AMBULATORY - NONE [facility] Mar 03, 2024 09:30 AM AMBULATORY - PSYCHIATRY [facility] Mar 12, 2024 01:00 PM AMBULATORY - NONE [facility] Mar 18, 2024 10:30 AM AMBULATORY - SURGERY [facility] Mar 27, 2024 11:00 AM AMBULATORY - PSYCHIATRY [facility] Active, Pending, and Scheduled Orders This section includes a listing of several types of active, pending, and scheduled orders, including clinic medications orders, diagnostic test orders, procedure orders and consult orders; where the start date of the order is 45 days before the date of the Encounter or 45 days after the date of theEncounter. The data comes from all [place] treatment facilities. Test Date/Time Test Type Test Details Facility Name Dec 27, 2023 01:12 PM Laboratory - Chemi stry Order OCCULT BLOOD FIT X1 SCREEN STOOL FECES WC ONCE [facility] Dec 30, 2023 12:00 AM Laboratory - Chemi stry Order CBC WITH DIFFERENTIAL BLOOD SP ONCE [facility] Dec 30, 2023 12:00 AM Laboratory - Chemi stry Order AST (SGOT) GRN/YEL PLASMA SP ONCE [facility] Dec 30, 2023 12:00 AM Laboratory - Chemi stry Order BMP+ALBUMIN GRN/YEL PLASMA SP ONCE [facility] Dec 30, 2023 12:00 AM Laboratory - Chemi stry Order ALT (SGPT) GRN/YEL PLASMA SP ONCE [facility] Dec 30, 2023 12:00 AM Laboratory - Chemi stry Order ALKALINE PHOSPHATASE GRN/YEL PLASMA SP ONCE [facility] Dec 30, 2023 12:00 AM Laboratory - Chemi stry Order LIPID PANEL GRN/YEL PLASMA SP ONCE [facility] Dec 30, 2023 12:00 AM Laboratory - Chemi stry Order TSH GRN/YEL PLASMA SP ONCE [facility] Dec 30, 2023 12:00 AM Laboratory - Chemi stry Order HEMOGLOBIN A1C BLOOD SP ONCE [facility] Dec 30, 2023 12:00 AM Laboratory - Chemi stry Order VITAMIN B12 GRN/YEL PLASMA SP ONCE [facility] Dec 30, 2023 12:00 AM Laboratory - Chemi stry Order URINALYSIS URINE SP ONCE [facility] Dec 30, 2023 12:00 AM Laboratory - Chemi stry Order VITAMIN D,25-HYDROXY GRN/YEL PLASMA SP [facility] Dec 30, 2023 12:00 AM Laboratory - Chemi stry Order MICROALBUMIN/CREAT RATIO (RU) PANEL URINE SP ONCE [facility] Lab Results: +/- 30 days of the encounter This section includes the Chemistry and Hematology Lab Results on record with [place] for the patient. Radiology Reports and Pathology Reports are provided separately, in subsequent sections. Lab Results This section contains the Chemistry/Hematology Results that were resulted 30 days before or 30 daysafter the date of the Encounter. Date/Time Source Result Type Result - Unit Interpretation Reference Range Specimen Type Comment Nov 26, 2023 08:27 AM [facility] DRUG ABUSE SURVEY (NLR) URINE Specimen Type: URINE No comment entered. Ordering Provider: ADELFO KEEN Report Released Date/Time: Nov 25, 2023 08:35 AM Reporting Lab: [facility] [address] [address] Performing Lab: [facility] [address] [address] AMPHETAMINES-MOHIT NEG Cutoff - 1000 n g/mL COCAINE-MOHIT NEG Cutoff - 300 ng/mL CANNABINOIDS-MOHIT NEG Cutoff - 50 ng/ mL OPIATES-MOHIT NEG Cutoff - 300 ng/mL URINE BARBITURATES-MOHIT POS H Cutoff - 200 ng/mL URINE BENZODIAZEPINES-MOHIT NEG Cutoff - 200 ng/mL CREATININE, URINE (mg/dL) >400 mg/dL See Eval Nov 18, 2023 12:31 PM [facility] DRUG ABUSE SURVEY (NLR) URINE Specimen Type: URINE No comment entered. Ordering Provider: BELKYS HOLLOWAY Report Released Date/Time: Nov 18, 2023 12:17 PM Reporting Lab: [facility] [address] [place] [phone] Performing Lab: [address] [address] AMPHETAMINES-MOHIT NEG Cutoff - 1000 n g/mL COCAINE-MOHIT NEG Cutoff - 300 ng/mL CANNABINOIDS-MOHIT NEG Cutoff - 50 ng/ mL OPIATES-MOHIT POS H Cutoff - 300 ng/mL URINE BARBITURATES-MOHIT POS H Cutoff - 200 ng/mL URINE BENZODIAZEPINES-MOHIT NEG Cutoff - 200 ng/mL CREATININE, URINE (mg/dL) 221 mg/dL See Eval Nov 13, 2023 07:51 AM [facility] PSA, TOTAL SERUM Specimen Ty pe: SERUM No comment entered. Ordering Provider: LAURITA BERNAL Report Released Date/Time: Nov 12, 2023 06:13 PM Reporting Lab: [facility] [address] [address] Performing Lab: [address] [address] PSA, TOTAL 1.18 ng/mL 0-4 Nov 11, 2023 06:40 AM [facility] BMP+ALBUMIN PLASMA Specimen Ty pe: PLASMA No comment entered. Ordering Provider: GIGI HORTON Report Released Date/Time: Nov 10, 2023 09:37 PM Reporting Lab: [facility] [address] [address] Performing Lab: [facility] [address] [place] [phone] CREATININE 1.1 mg/dL 0.6-1.3 GLUCOSE 72 mg/dL 70-109 SODIUM 139 mmol/L 135-145 POTASSIUM 4.0 mmol/L 3.5-5.1 CHLORIDE 102 mmol/L 100-109 CO2 29 mmol/L 22-29 ALBUMIN 2.5 g/dL L 3.4-5 CALCIUM 8.9 mg/dL 8.3-10.3 UREA NITROGEN 3 mg/dL L 5.0-20.0 EGFR CKD-EPI 2020 83 L >90 Nov 11, 2023 06:40 AM [facility] CBC WITH DIFFERENTIAL BLOOD Specimen Type: BL OOD No comment entered. Ordering Provider: GIGI HORTON Report Released Date/Time: Nov 10, 2023 09:37 PM Reporting Lab: [address] [address] Performing Lab: [address] [address] WBC 8.2 10*3/uL 3.6-10.0 RBC 3.50 10*6/uL [...] ABSOLUTE # Nov 11, 2023 02:46 AM [facility] MRSA SURVL NARES AGAR NARES Specimen Type: NA RES Comment: *MRSA SURVL NARES DNA Not Performed: Nov 11, 2023@07:39 by [id number] *CONFERENCE ASSISTANT Reason: DNA TESTING NOT AVAILABLE-CULTURE ADDED Ordering Provider: GIGI HORTON Report Released Date/Time: Nov 10, 2023 09:37 PM Reporting Lab: [address] [address] Performing Lab: [address] [address] MRSA SURVL NARES AGAR Negative Negative Advance Directives: All historical and current Section Date Range: From patient's date of to the date document was created. This section includes ALL of a patient's completed or amended [place] Advance and Rescinded Directives. The entries below indicate that a directive exists for the patient, but an actual copy is not included with this document. The data comes from all [place] facilities. Date Advance Directives Provider Source Jul 30, 2016 ADVANCE DIRECTIVE DISCUSSION DOUG C[facility] Radiology Reports: +/- 30 days of the [...] the Encounter. The data comes from all [place] treatment facilities. Date/Time Radiology Report Provider Source Nov 06, 2023 04:00 PM OUTSIDE MRI: LUISYAJAIRA ANDREY [id number] -1975 M Exm Date: NOV 06, 2023@16:00 Req Phys: JOSE DAVID LEBLANC Pat Loc: COM CARE-MRI (Req'g Loc) Img Loc: OUTSIDE MRI Service: Unknown (Case [id number] COMPLETE)OUTSIDE MRI (MRI Detailed) CPT:03604 Reason for Study: [facility]-OUTSIDE MRI Clinical History: [facility]-OUTSIDE MRI MR T-spine Report Status: Electronically Filed Date Reported: Report: STUDY DONE OUTSIDE THE [place]. FOR COMPARISON ONLY Impression: FOR COMPARISON ONLY Primary Diagnostic Code: IMAGING VERIFIED BY: / *ELECTRONICALLY FILED* [facility] Nov 06, 2023 03:00 PM OUTSIDE MRI: YAJAIRA SMITH [id number] -1975 M Exm Date: NOV 06, 2023@15:00 Req Phys: JOSE DAVID LEBLANC Loc: COM CARE-MRI (Req'g Loc) Img Loc: OUTSIDE MRI Service: Unknown (Case [id number] COMPLETE)OUTSIDE MRI (MRI Detailed) CPT:03883 Reason for Study: [facility]-OUTSIDE MRI Clinical History: [facility]-OUTSIDE MRI MR L-spine Report Status: Electronically Filed Date Reported: Report: [facility] ONLY Impression: FOR COMPARISON ONLY Primary Diagnostic Code: IMAGING VERIFIED BY: / *ELECTRONICALLY FILED* [facility] Nov 06, 2023 02:00 PM OUTSIDE MRI: YAJAIRA SMITH [id number] -1975 M Exm Date: NOV 06, 2023@14:00 Req Phys: JOSE DAVID LEBLANC Loc: COM CARE-MRI (Req'g Loc) Img Loc: OUTSIDE MRI Service: Unknown (Case [id number] COMPLETE)OUTSIDE MRI (MRI Detailed) CPT:73196 Reason for Study: [facility]-OUTSIDE MRI Clinical History: [facility]-OUTSIDE MRI MR C-spine Report Status: Electronically Filed Date Reported: Report: STUDY DONE [facility]IDE [facility] FOR COMPARISON ONLY Impression: FOR COMPARISON ONLY Primary Diagnostic Code: IMAGING VERIFIED BY: / *ELECTRONICALLY FILED* [facility] Nov 06, 2023 01:00 PM OUTSIDE MRI: YAJAIRA SMITH [id number] -1975 M Exm Date: NOV 06, 2023@13:00 Req Phys: JOSE DAVID LEBLANC Loc: COM CARE-MRI (Req'g Loc) Img Loc: OUTSIDE MRI Service: Unknown (Case [id number] COMPLETE)OUTSIDE MRI (MRI Detailed) CPT:19871 Reason for Study: [facility] CARE-OUTSIDE MRI Clinical History: [facility] CARE-OUTSIDE MRI MR Head Report Status: Electronically Filed Date Reported: Report: STUDY DONE OUTSIDE THE [facility]. FOR COMPARISON ONLY Impression: FOR COMPARISON ONLY Primary Diagnostic Code: IMAGING VERIFIED BY: / *ELECTRONICALLY FILED* [facility] Nov 06, 2023 06:00 AM OUTSIDE GENERAL RA DIOLOGY: YAJAIRA SMITH [id number] -1975 M Exm Date: NOV 06, 2023@06:00 Req Phys: JOSE DAVID LEBLANC Loc: COM CARE-RADIOLOGY GENERAL (Re Img Loc: OUTSIDE GENERAL RADIOLOGY Service: Unknown (Case [id number] COMPLETE)OUTSIDE GENERAL RADIOLOGY (RAD Detailed) CPT:98494 Reason for Study: [facility] Care-General Radiology Clinical History: [facility] Care-General Radiology LP Report Status: Electronically Filed Date Reported: Report: STUDY DONE OUTSIDE THE [facility] FOR COMPARISON ONLY Impression: FOR COMPARISON ONLY Primary Diagnostic Code: IMAGING VERIFIED BY: / *ELECTRONICALLY FILED* [facility] Nov 05, 2023 01:[address] SCAN: YAJAIRA SMITHEL [id number] -1975 M Exm Date: NOV 05, 2023@13:00 Req Phys: JOSE DAVID LEBLANC Loc: COM CARE-CT SCAN (Req'g Loc) Img Loc: OUTSIDE CT Service: Unknown (Case [id number] COMPLETE)OUTSIDE CT SCAN (CT Detailed) CPT:12678 Reason for Study: [facility] Care-Outside CT Scan Clinical History: [facility]Outside CT Scan CT Head Report Status: Electronically Filed Date Reported: Report: [facility] D[facility] FOR COMPARISON ONLY Impression: FOR COMPARISON ONLY Primary Diagnostic Code: IMAGING VERIFIED BY: / *ELECTRONICALLY FILED* [facility] Nov 01, 2023 08:[address] SCAN: YAJAIRA SMITH [id number] -1975 M Exm Date: NOV 01, 2023@08:00 Req Phys: JOSE DAVID LEBLANC Pat Loc: COM CARE-CT SCAN (Req'g Loc) Img Loc: OUTSIDE CT Service: Unknown (Case [id number] COMPLETE)OUTSIDE CT SCAN (CT Detailed) CPT:41525 Reason for Study: [facility]Outside CT Scan Clinical History: [facility]-Outside CT Scan CT A/P Report Status: Electronically Filed Date Reported: Report: STUDY DONE [facility] FOR COMPARISON ONLY Impression: FOR COMPARISON ONLY Primary Diagnostic Code: IMAGING VERIFIED BY: / *ELECTRONICALLY FILED* [facility] Encounter Notes: All associated encounter notes This section contains the clinical notes associated to the Encounter. Date/Time Encounter Note(s) Provider Source Nov 22, 2023 12:40 PM ADMINISTRATIVE NOT E: LOCAL TITLE: APPOINTMENT CANCELLATION STANDARD TITLE: ADMINISTRATIVE NOTE DATE OF NOTE: NOV 22, 2023@12:40 ENTRY DATE: NOV 22, 2023@12:40:56 AUTHOR: JULIETA CONNORS EXP COSIGNER: URGENCY: STATUS: COMPLETED Mr. Enriquez, please cancel by clinic [facility] PSYCH 1 for today at 1300 and RTC for 11/25/23 at 1300 for 90 mins. /ben/ JULIETA CONNORS PSYD Clinical Psychologist - [facility]upt. Hearing Screen Coordinator Signed: 11/22/2023 12:42 Receipt Acknowledged By: 11/22/2023 14:04 /ben/ JULIETA WILEY [facility] [place], [facility]
--- OUTSIDE RECORDS SUMMARY | 2023-11-28 04:00 | XMS_ITS | Encounter Summary ---
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 Date/Time Encounter Type Encounter Description Reason Pro vider Source Nov 28, 2023 09:00 AM Outpatient Encounter SUBSTANCE USE DISORDR GRP IHE Encounter Template Text not used by [...] 20 appointments. The data comes from all [place] treatment facilities. Appointment Date/Time Appointment Type Appointme nt Facility Name Dec 02, 2023 12:30 PM [facility] Dec 30, 2023 01:30 PM AMBULATORY - NONE [facility] Feb 26, 2024 09:00 AM AMBULATORY - NONE [facility] Feb 28, 2024 11:00 AM AMBULATORY - NONE [facility] Mar 03, 2024 09:30 AM AMB[facility]ATORY - [facility]RY [facility] Mar 12, 2024 01:00 PM AMBULATORY - NONE [facility] Mar 18, 2024 10:30 AM [facility] Mar 27, 2024 11:00 AM AM[facility]AT[facility]RY [facility] Apr 09, 2024 08:00 AM AMBULATORY - NONE [facility] Apr 30, 2024 09:15 AM [facility] May 19, 2024 03:00 PM AMBULATORY - NONE [facility] Active, Pending, and Scheduled Orders This section includes a listing of several types of active, pending, and scheduled orders, including clinic medications orders, diagnostic test orders, procedure orders and consult orders; where the start date of the order is 45 days before the date of the Encounter or 45 days after the date of theEncounter. The data comes from all [place] treatment facilities. Test Date/Time Test Type Test Details Facility Name Dec 27, 2023 01:12 PM Laboratory - Chemi stry Order OCCULT BLOOD FIT X1 SCREEN STOOL FECES WC ONCE [facility] Dec 30, 2023 12:00 AM Laboratory - Chemi stry Order CBC WITH DIFFERENTIAL BLOOD SP ONCE [facility] Dec 30, 2023 12:00 AM Laboratory - Chemi stry Order AST (SGOT) GRN/YEL PLASMA SP ONCE [facility] Dec 30, 2023 12:00 AM Laboratory - Chemi stry Order BMP+ALBUMIN GRN/YEL PLASMA SP ONCE [facility] Dec 30, 2023 12:00 AM Laboratory - Chemi stry Order ALT (SGPT) GRN/YEL PLASMA SP ONCE [facility] Dec 30, 2023 12:00 AM Laboratory - Chemi stry Order ALKALINE PHOSPHATASE GRN/YEL PLASMA SP ONCE [facility] Dec 30, 2023 12:00 AM Laboratory - Chemi stry Order LIPID PANEL GRN/YEL PLASMA SP ONCE [facility] Dec 30, 2023 12:00 AM Laboratory - Chemi stry Order TSH GRN/YEL PLASMA SP ONCE [facility] Dec 30, 2023 12:00 AM Laboratory - Chemi stry Order HEMOGLOBIN A1C BLOOD SP ONCE [facility] Dec 30, 2023 12:00 AM Laboratory - Chemi stry Order VITAMIN B12 GRN/YEL PLASMA SP ONCE [facility] Dec 30, 2023 12:00 AM Laboratory - Chemi stry Order URINALYSIS URINE SP ONCE [facility] Dec 30, 2023 12:00 AM Laboratory - Chemi stry Order VITAMIN D,25-HYDROXY GRN/YEL PLASMA SP [facility] Dec 30, 2023 12:00 AM Laboratory - Chemi stry Order MICROALBUMIN/CREAT RATIO (RU) PANEL URINE SP ONCE [facility] Lab Results: +/- 30 days of the encounter This section includes the Chemistry and Hematology Lab Results on record with [place] for the patient. Radiology Reports and Pathology Reports are provided separately, in subsequent sections. Lab Results This section contains the Chemistry/Hematology Results that were resulted 30 days before or 30 daysafter the date of the Encounter. Date/Time Source Result Type Result - Unit Interpretation Reference Range Specimen Type Comment Nov 26, 2023 08:27 AM [facility] DRUG ABUSE SURVEY ([facility]) URINE Specimen Type: URINE No comment entered. Ordering Provider: ADELFO KEEN S Report Released Date/Time: Nov 25, 2023 08:35 AM Reporting Lab: [address] [address] Performing Lab: [address] [address] AMPHETAMINES-MOHIT NEG Cutoff - 1000 n g/mL COCAINE-MOHIT NEG Cutoff - 300 ng/mL CANNABINOIDS-MOHIT NEG Cutoff - 50 ng/ mL OPIATES-MOHIT NEG Cutoff - 300 ng/mL URINE BARBITURATES-MOHIT POS H Cutoff - 200 ng/mL URINE BENZODIAZEPINES-MOHIT NEG Cutoff - 200 ng/mL CREATININE, URINE (mg/dL) >400 mg/dL See Eval Nov 18, 2023 12:31 PM [facility] DRUG ABUSE SURVEY ([facility]) URINE Specimen Type: URINE No comment entered. Ordering Provider: BELKYS HOLLOWAY Report Released Date/Time: Nov 18, 2023 12:17 PM Reporting Lab: [place] [id number] [address] Performing Lab: [facility] [address] [address] AMPHETAMINES-MOHIT NEG Cutoff - 1000 n g/mL COCAINE-MOHIT NEG Cutoff - 300 ng/mL CANNABINOIDS-MOHIT NEG Cutoff - 50 ng/ mL OPIATES-MOHIT POS H Cutoff - 300 ng/mL URINE BARBITURATES-MOHIT POS H Cutoff - 200 ng/mL URINE BENZODIAZEPINES-MOHIT NEG Cutoff - 200 ng/mL CREATININE, URINE (mg/dL) 221 mg/dL See Eval Nov 13, 2023 07:51 AM [facility] PSA, TOTAL SERUM Specimen Ty pe: SERUM No comment entered. Ordering Provider: LAURITA BERNAL Report Released Date/Time: Nov 12, 2023 06:13 PM Reporting Lab: [facility] [address] [place] [phone] Performing Lab: [address] [address] PSA, TOTAL 1.18 ng/mL 0-4 Nov 11, 2023 06:40 AM [facility] BMP+ALBUMIN PLASMA Specimen Ty pe: PLASMA No comment entered. Ordering Provider: GIGI HORTON Report Released Date/Time: Nov 10, 2023 09:37 PM Reporting Lab: [address] [address] Performing Lab: [address] [address] CREATININE 1.1 mg/dL 0.6-1.3 GLUCOSE 72 mg/dL 70-109 SODIUM 139 mmol/L 135-145 POTASSIUM 4.0 mmol/L 3.5-5.1 CHLORIDE 102 mmol/L 100-109 CO2 29 mmol/L 22-29 ALBUMIN 2.5 g/dL L 3.4-5 CALCIUM 8.9 mg/dL 8.3-10.3 UREA NITROGEN 3 mg/dL L 5.0-20.0 EGFR CKD-EPI 2020 83 L >90 Nov 11, 2023 06:40 AM [facility] CBC WITH DIFFERENTIAL BLOOD Specimen Type: BL OOD No comment entered. Ordering Provider: GIGI HORTON Report Released Date/Time: Nov 10, 2023 09:37 PM Reporting Lab: [address] [address] Performing Lab: [facility] [address] [address] WBC 8.2 10*3/uL 3.6-10.0 RBC 3.50 10*6/uL [...] ABSOLUTE # Nov 11, 2023 02:46 AM [facility] MRSA SURVL NARES AGAR NARES Specimen Type: NA RES Comment: *MRSA SURVL NARES DNA Not Performed: Nov 11, 2023@07:39 by [id number] *[employer] Reason: DNA TESTING NOT AVAILABLE-CULTURE ADDED Ordering Provider: GIGI HORTON Report Released Date/Time: Nov 10, 2023 09:37 PM Reporting Lab: [facility] [address] [place] [phone] Performing Lab: [address] [address] MRSA SURVL NARES AGAR Negative Negative Vital Signs: All taken on the encounter date This section contains inpatient and outpatient Vital Signs collected on the date of the Encounter. Date/Time Temperature Pulse Blood Pressure Respiratory Rate SP02 Pain Height Weight Body Mass Index Source Nov 28, 2023 09:07 AM 99 61 149/92 18 BANGOR MD IRINA Social History: Smoking Status (Most current) and Tobacco Use (All prior to encounter date) This section includes the most current, and the historical, smoking and tobacco- related health factors from the [place] facility where the Encounter took place. Current Smoking Status This section includes the most current smoking, or tobacco-related health factor, from the [place] facility where the Encounter took place. Date/Time Current Smoking Status Comment Facil ity Nov 25, 2023 01:00 PM VA-TOBACCO USER EVERY DAY [facility] Tobacco Use History This section includes a history of the smoking, or tobacco-related health factors, that were collected on or before the date of the Encounter. The data comes from the [place] facility where the Encounter took place. Date/Time Smoking Status/Tobacco Use Comment F acility Nov 25, 2023 01:00 PM VA-TOBACCO USE ADVICE [facility] Nov 25, 2023 01:00 PM VA-TOBACCO USE HAT MENDER NO [facility] Nov 25, 2023 01:00 PM VA-TOBACCO USE MED NO [facility] Nov 25, 2023 01:00 PM VA-TOBACCO USE WI 30 MIN OF WAKEUP [facility] Nov 25, 2023 01:00 PM VA-TOBACCO USER EVERY DAY [facility] Advance Directives: All historical and current Section Date Range: From patient's date of to the date document was created. This section includes ALL of a patient's completed or amended [place] Advance and Rescinded Directives. The entries below indicate that a directive exists for the patient, but an actual copy is not included with this document. The data comes from all [facility]. Date Advance Directives Provider Source Jul 30, 2016 ADVANCE DIRECTIVE DISCUSSION [facility] Radiology Reports: +/- 30 days of [...] the Encounter. The data comes from all [place] treatment facilities. Date/Time Radiology Report Provider Source Nov 06, 2023 04:00 PM OUTSIDE MRI: YAJAIRA SMITH [id number] -1975 M Exm Date: NOV 06, 2023@16:00 Req Phys: JOSE DAVID LEBLANC Loc: COM CARE-MRI (Req'g Loc) Img Loc: OUTSIDE MRI Service: Unknown (Case [id number] COMPLETE)OUTSIDE MRI (MRI Detailed) CPT:03405 Reason for Study: [facility]-OUTSIDE MRI Clinical History: [facility]OUTSIDE MRI MR T-spine Report Status: Electronically Filed Date Reported: Report: [facility] FOR [facility]PARISON ONLY Impression: FOR COMPARISON ONLY Primary Diagnostic Code: IMAGING VERIFIED BY: / *ELECTRONICALLY FILED* [facility] Nov 06, 2023 03:00 PM OUTSIDE MRI: YAJAIRA SMITH [id number] -1975 M Exm Date: NOV 06, 2023@15:00 Req Phys: JOSE DAVID LEBLANC Loc: COM CARE-MRI (Req'g Loc) Img Loc: OUTSIDE MRI Service: Unknown (Case [id number] COMPLETE)OUTSIDE MRI (MRI Detailed) CPT:81029 Reason for Study: [facility]-OUTSIDE MRI Clinical History: [facility]-OUTSIDE MRI MR L-spine Report Status: Electronically Filed Date Reported: Report: STUDY DONE [facility] FOR COMPARISON ONLY Impression: FOR COMPARISON ONLY Primary Diagnostic Code: IMAGING VERIFIED BY: / *ELECTRONICALLY FILED* [facility] Nov 06, 2023 02:00 PM OUTSIDE MRI: YAJAIRA SMITH [id number] -1975 M Exm Date: NOV 06, 2023@14:00 Req Phys: JOSE DAVID LEBLANC Loc: COM CARE-MRI (Req'g Loc) Img Loc: OUTSIDE MRI Service: Unknown (Case [id number] COMPLETE)OUTSIDE MRI (MRI Detailed) CPT:51073 Reason for Study: [facility]-OUTSIDE MRI Clinical History: [facility]-OUTSIDE MRI MR C-spine Report Status: Electronically Filed Date Reported: Report: STUDY DONE [facility] FOR COMPARISON ONLY Impression: FOR COMPARISON ONLY Primary Diagnostic Code: IMAGING VERIFIED BY: / *ELECTRONICALLY FILED* [facility] Nov 06, 2023 01:00 PM OUTSIDE MRI: YAJAIRA SMITH [id number] -1975 M Exm Date: NOV 06, 2023@13:00 Req Phys: JOSE DAVID LEBLANC Loc: COM CARE-MRI (Req'g Loc) Img Loc: OUTSIDE MRI Service: Unknown (Case [id number] COMPLETE)OUTSIDE MRI (MRI Detailed) CPT:79070 Reason for Study: [facility] C[facility]-OUTSIDE MRI Clinical History: [facility]-OUTSIDE MRI MR Head Report Status: Electronically Filed Date Reported: Report: STUDY DONE [facility]IDE [facility] FOR COMPARISON ONLY Impression: FOR COMPARISON ONLY Primary Diagnostic Code: IMAGING VERIFIED BY: / *ELECTRONICALLY FILED* [facility] Nov 06, 2023 06:00 AM OUTSIDE GENERAL RA DIOLOGY: YAJAIRA SMITH [id number] -1975 M Exm Date: NOV 06, 2023@06:00 Req Phys: JOSE DAVID LEBLANC Loc: COM CARE-RADIOLOGY GENERAL (Re Img Loc: OUTSIDE GENERAL RADIOLOGY Service: Unknown (Case [id number] COMPLETE)OUTSIDE GENERAL RADIOLOGY (RAD Detailed) CPT:43865 Reason for Study: [facility] Care-General Radiology Clinical History: [facility] Care-General Radiology LP Report Status: Electronically Filed Date Reported: Report: STUDY DONE [facility] FOR COMPARISON ONLY Impression: FOR COMPARISON ONLY Primary Diagnostic Code: IMAGING VERIFIED BY: / *ELECTRONICALLY FILED* [facility] Nov 05, 2023 01:[address] SCAN: YAJAIRA SMITH [id number] -1975 M Exm Date: NOV 05, 2023@13:00 Req Phys: JOSE DAVID LEBLANC Pat Loc: COM CARE-CT SCAN (Req'g Loc) Img Loc: OUTSIDE CT Service: Unknown (Case [id number] COMPLETE)OUTSIDE CT SCAN (CT Detailed) CPT:25568 Reason for Study: [facility]Outside CT Scan Clinical History: [facility]-Outside CT Scan CT Head Report Status: Electronically Filed Date Reported: Report: STUDY DONE [facility] FOR COMPARISON ONLY Impression: FOR COMPARISON ONLY Primary Diagnostic Code: IMAGING VERIFIED BY: / *ELECTRONICALLY FILED* [facility] Nov 01, 2023 08:[address] SCAN: YAJAIRA SMITH [id number] -1975 M Exm Date: NOV 01, 2023@08:00 Req Phys: JOSE DAVID LEBLANC Loc: COM CARE-CT SCAN (Req'g Loc) Img Loc: OUTSIDE CT Service: Unknown (Case [id number] COMPLETE)OUTSIDE CT SCAN (CT Detailed) CPT:84338 Reason for Study: [facility]-Outside CT Scan Clinical History: [facility]-Outside CT Scan CT A/P Report Status: Electronically Filed Date Reported: Report: STUDY DONE [facility] FOR COMPARISON ONLY Impression: FOR COMPARISON ONLY Primary Diagnostic Code: IMAGING VERIFIED BY: / *ELECTRONICALLY FILED* [facility] Encounter Notes: All associated encounter notes This section contains the clinical notes associated to the Encounter. Date/Time Encounter Note(s) Provider Source Nov 28, 2023 10:49 AM ADMINISTRATIVE NOT E: LOCAL TITLE: APPOINTMENT CANCELLATION STANDARD TITLE: ADMINISTRATIVE NOTE DATE OF NOTE: NOV 28, 2023@10:49 ENTRY DATE: NOV 28, 2023@10:49:49 AUTHOR: JULIANA HEIN COSIGNER: URGENCY: STATUS: COMPLETED Please cancel this appointment. /ben/ JULIANA HEIN SOLUTION ARCHITECT Signed: 11/28/2023 10:50 JUL[place]NA HEIN [place]
--- OUTSIDE RECORDS SUMMARY | 2024-03-18 06:31 | XMS_ITS | Encounter Summary ---
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 Date/Time Encounter Type Encounter Description Reason Pro vider Source Mar 18, 2024 11:31 AM Outpatient Encounter OPHTHALMOLOGY IHE Encounter Template Text not used by [place] Plan of Treatment: Future Appointments (+ 6 months) and Future Tests (+/- 45 days) The Plan of Treatment section includes future care activities for the patient from all [place] treatmentfacilities. This section includes future appointments and future orders which are active, pending or scheduled. Future Appointments This section includes appointments that were scheduled to occur 6 months from the date of the Encounter, up to a maximum of 20 appointments. The data comes from all [place] treatment facilities. Appointment Date/Time Appointment Type Appointme nt Facility Name Mar 27, 2024 11:00 AM AM[facility] Apr 09, 2024 08:00 AM AMBULATORY - NONE [facility] 23, 2025 09:15 AM AM[facility]ORY - [facility] May 19, 2024 03:00 PM AMBULATORY - NONE [facility] Jun 05, 2024 10:20 AM AMBULATORY - NONE [facility] Jun 05, 2024 11:00 AM [facility] Jun 05, 2024 02:00 PM AMBULATORY - NONE [facility] Jun 15, 2024 01:30 PM AMBULATORY - REHAB MEDICIN E [facility] Jun 17, 2024 02:00 PM AMBULATORY - NONE [facility] Jul 13, 2024 11:30 AM AMBULATORY - REHAB MEDICIN E [facility] Jul 13, 2024 01:00 PM AMBULATORY - REHAB MEDICIN E [facility] August 10, 2024 11:00 AM AMBULATORY - REHAB MEDICIN E [facility] August 10, 2024 11:05 AM AMBULATORY - REHAB MEDICIN E [facility] August 12, 2024 01:00 PM AMBULATORY - NONE [facility] August 14, 2024 01:30 PM AMBULATORY - [place]ATRY [place] [facility] Sep 08, 2024 09:00 AM AMBULATORY - REHAB MEDICIN E [facility] Lab Results: +/- 30 days of [...] Unit Interpretation Reference Range Specimen Type Comment Feb 26, 2024 09:[address] [facility] AST (SGOT) PLASMA Specimen Type: PLASMA No comment entered. Ordering Provider: TAMARA VALENCIA Report Released Date/Time: Feb 25, 2024 03:04 PM Reporting Lab: [address] [address] Performing Lab: [address] [address] AST (SGOT) 41 U/L 15-46 Feb 26, 2024 09:[address] [facility] ALT (SGPT) PLASMA Specimen Type: PLASM A No comment entered. Ordering Provider: TAMARA VALENCIA Report Released Date/Time: Feb 25, 2024 03:04 PM Reporting Lab: [facility] [address] [address] Performing Lab: [address] [address] ALT (SGPT) 33 U/L 11-63 Feb 26, 2024 09:36 AM [facility] HEMOGLOBIN A1C BLOOD Specimen Type: BLOOD Comment: Values obtained from A1C measurements can vary. For typical A1C assays, a reported value of 7.0 could actually be between 6.72 and 7.28 if measured by a reference method. A reported value of 9.0 could actually be between 8.73 and 9.27. Ref: https://www.ngsp.org/CAPdata.asp Ordering Provider: TAMARA VALENCIA Report Released Date/Time: Feb 25, 2024 03:04 PM Reporting Lab: [facility] [address] [place] [address] Performing Lab: [address] [address] HEMOGLOBIN A1C 5.9 4.0-6.0 Feb 26, 2024 09:36 AM [facility] VITAMIN B12 PLASMA Specimen Type: PLASM A No comment entered. Ordering Provider: TAMARA VALENCIA Report Released Date/Time: Feb 25, 2024 03:04 PM Reporting Lab: [facility] [address] [address] Performing Lab: [address] [address] VITAMIN B12 255 pg/mL 180-914 Feb 26, 2024 09:36 AM [facility] ALKALINE PHOSPHATASE PLASMA Specimen Type: DYAN SMA No comment entered. Ordering Provider: TAMARA VALENCIA Report Released Date/Time: Feb 25, 2024 03:04 PM Reporting Lab: [facility] [address] [address] Performing Lab: [address] [address] ALKALINE PHOSPHATASE 91 U/L 31-126 Feb 26, 2024 09:[address] [facility] BMP+ALBUMIN PLASMA Specimen Type: PLASM A Comment: Blood older than 8 hours, cells and morphology may be affected. Ordering Provider: TAMARA VALENCIA Report Released Date/Time: Feb 25, 2024 03:04 PM Reporting Lab: [address] [address] Performing Lab: [address] [address] CREATININE 0.9 mg/dL 0.6-1.3 GLUCOSE 93 mg/dL 70-109 SODIUM 137 mmol/L 135-145 POTASSIUM 4.7 mmol/L 3.5-5.1 CHLORIDE 106 mmol/L 100-109 CO2 25 mmol/L 22-29 ALBUMIN 4.0 g/dL 3.4-5 CALCIUM 9.0 mg/dL 8.3-10.3 UREA NITROGEN 16 mg/dL 5.0-20.0 EGFR CKD-EPI 2020 >90 >90 Feb 26, 2024 09:36 AM [facility] TSH P LASMA Specimen Type: PLASMA No comment entered. Ordering Provider: TAMARA VALENCIA Report Released Date/Time: Feb 25, 2024 03:04 PM Reporting Lab: [address] [address] Performing Lab: [address] [address] TSH 1.19 u[IU]/mL 0.34-5.6 Feb 26, 2024 09:36 AM [facility] LIPID PANEL PLASMA Specimen Type: PLASM A Comment: Blood older than 8 hours, cells and morphology may be affected. Ordering Provider: TAMARA VALENCIA Report Released Date/Time: Feb 25, 2024 03:04 PM Reporting Lab: [address] [address] Performing Lab: [address] [address] CHOLESTEROL 155 mg/dL 135-200 TRIGLYCERIDES 111 mg/dL 30-200 HDL (DIRECT) 39 mg/dL 30-70 LDL (CALCULATED) 94 mg/dL 0-100 Feb 26, 2024 09:36 AM [facility] VITAMIN D,25-HYDROXY PLASMA Specimen Type: DYAN SMA No comment entered. Ordering Provider: TAMARA VALENCIA Report Released Date/Time: Feb 25, 2024 03:04 PM Reporting Lab: [address] [address] Performing Lab: [address] [address] VITAMIN D,25-HYDROXY 32.5 ng/mL 30.0-100 .0 Feb 26, 2024 09:36 AM [facility] URINE ALBUMIN CREATININE PANEL URINE Specimen Type: URINE Comment: Unable to calculate Urine Albumin/Creat Ratio. Total Urine Albumin is below linearity of assay. Ordering Provider: TAMARA VALENCIA Report Released Date/Time: Feb 25, 2024 03:04 PM Reporting Lab: [address] [address] Performing Lab: [place] [phone] CREATININE, URINE (mg/dL) 190.10 mg/dL S ee Eval URINE ALBUMIN (MICROALBUMIN) <0.5 mg/dL L 0-4.9 URINE ALBUMIN/CREATININE RATIO (UACr) comment ug /mg 0-30 Feb 26, 2024 09:36 AM [facility] CBC WITH DIFFERENTIAL BLOOD Specimen Type: BL OOD Comment: Blood older than 8 hours, cells and morphology may be affected. Ordering Provider: TAMARA VALENCIA Report Released Date/Time: Feb 25, 2024 03:04 PM Reporting Lab: [address] [address] Performing Lab: [address] [address] WBC 4.8 10*3/uL 3.6-10.0 RBC 4.65 10*6/uL 4.0-6.0 HGB 13.6 g/dL 13.5-18.0 HCT 41.2 40.0-54.0 MCV 88.7 fL 80.0-94.0 MCH 29.2 pg 27-33 MCHC 32.9 g/dL 32.0-36.0 PLATELET COUNT 239 10*3/uL 150.0-450.0 MPV 8.2 fL 7.4-10.4 RDW 13.8 11.5-14.5 MO % 10.2 SEE ABSOLUTE # LY # 1.0 10*3/uL 1.0-4.3 MO # 0.5 10*3/uL 0.3-1.0 LY % 20.1 SEE ABSOLUTE # NE % 65.3 SEE ABSOLUTE # NE # 3.1 10*3/uL 2.4-7.6 EO # 0.2 10*3/uL 0.0-0.5 BA # 0.1 10*3/uL 0.0-0.1 BA % 1.1 H SEE ABSOLUTE # EO % 3.3 SEE ABSOLUTE # Feb 26, 2024 09:36 AM [facility] URINALYSIS URINE Specimen Type: URINE Comment: MICROSCOPIC NOT INDICATED Ordering Provider: TAMARA VALENCIA Report Released Date/Time: Feb 25, 2024 03:04 PM Reporting Lab: [facility] [address] [place] [phone] Performing Lab: [facility] [address] [address] UA COLOR YELLOW COLORLESS-YELLOW UA SPECIFIC GRAVITY 1.027 1.001-1.035 UA UROBILINOGEN 2.0 mg/dL NEGATIVE UA BILIRUBIN Negative NEGATIVE UA KETONES Negative NEGATIVE UA GLUCOSE Negative NEGATIVE UA PROTEIN Negative NEGATIVE UA PH 6.0 5.0-8.0 UA APPEARANCE CLEAR CLEAR UA BLOOD Negative NEGATIVE UA NITRITE Negative NEGATIVE UA LEUK ESTERASE Negative NEGATIVE Vital Signs: All taken on the encounter date This section contains inpatient and outpatient Vital Signs collected on the date of the Encounter. Date/Time Temperature Pulse Blood Pressure Respiratory Rate SP02 Pain Height Weight Body Mass Index Source Mar 18, 2024 10:24 AM 9 [facility] Mar 18, 2024 10:23 AM 84 144/89 9 242.3 31 [facility] Advance Directives: All historical and current Section Date Range: From patient's date of to the date document was created. This section includes ALL of a patient's completed or amended [place] Advance and Rescinded Directives. The entries below indicate that a directive exists for the patient, but an actual copy is not included with this document. The data comes from all [facility]. Date Advance Directives Provider Source Jul 30, 2016 ADVANCE DIRECTIVE DISCUSSION DOUG CASH [facility] Radiology Reports: +/- 30 days of the [...] the Encounter. The data comes from all [place] treatment facilities. Date/Time Radiology Report Provider Source Feb 28, 2024 11:21 AM ANKLE RIGHT NON-WE IGHT BEARING: YAJAIRA SMITH [id number] -1975 M Exm Date: FEB 28, 2024@11:21 Req Phys: TAMARA VALENCIA Pat Loc: [facility] PACT 1 (Req'g Loc) Img Loc: [facility] Service: Unknown [place], [facility] [place] [address] (Case [id number] COMPLETE)ANKLE RIGHT NON-WEIGHT BEARING (RAD Detailed) CPT:25091 Proc Modifiers : RIGHT CPT Modifiers : RT RIGHT SIDE Reason for Study: pain Clinical History: AP, lat, mortise (including weight bearing) Report Status: Verified Date Reported: MAR 02, 2024 Date Verified: MAR 02, 2024 Home Staging Specialist E-Sig: Report: PROCEDURE: ANKLE RIGHT NON-WEIGHT BEARING CLINICAL INDICATION: pain FINDINGS: Study is compared to the study of 11/09/2022. 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 The deformity of the tibia is seen with increased sclerosis and subchondral cystic changes. Osteophytic spurring anterior talus. The degenerative changes subtalar joint. Impression: Advanced degenerative changes right ankle with increased sclerosis subchondral cystic changes and marginal hypertrophic osteophyte formation. No change from the study of 11/09/2022 Primary Diagnostic Code: Minor Abnormality or Abn Prev Identified Primary Interpreting Staff: TIO TODD, Staff Physician Verified by side laster tack for TIO TODD /TIO Nieto [facility] Encounter Notes: All associated encounter notes This section contains the clinical notes associated to the Encounter. Date/Time Encounter Note(s) Provider Source Mar 18, 2024 11:31 AM EYE NOTE: LOCAL TITLE: EYE GLASS PRESCRIPTION NOTE STANDARD TITLE: EYE NOTE DATE OF NOTE: MAR 18, 2024@11:31 ENTRY DATE: MAR 18, 2024@11:32:12 AUTHOR: JAC WHITE COSIGNER: URGENCY: STATUS: COMPLETED THIS IS AN OUTSIDE GLASSES PRESCTIPTION ENTERED PRESCRIBED BY: RAD[facility]ILES [facility] [address] [facility] [address] PHONE:[phone] EXAM DATE:03/12/24 EXPIRES 03/12/25 [facility] [address] [place], [place], [address] [facility] [address] [place] [address] [phone] PRESCRIPTION: OD:+0.25 x155 OS:+0.25 Sph x Add: +1.75 Prescription expires 2 years from examination visit date LENS OPTIONS: Bifocals PAL /es/ JAC WHITE Resident PGY-2 Signed: 03/18/2024 13:38 JAC WHITE [facility]
--- OUTSIDE RECORDS SUMMARY | 2024-03-23 09:39 | XMS_ITS | Encounter Summary ---
Author Name [facility] [place] [facility] [place] Organization [place] Address [address] [place] [address] Care Team Providers Care Skidder Operator Name Role Phone TAMARA VALENCIA Primary [...] section includes the information on record at [place] for the Encounter. Date/Time Encounter Type Encounter Description Reason Pro vider Source Mar 23, 2024 02:39 PM Outpatient Encounter COMMUNITY CARE CONSULT IHE Encounter Template Text not used by [place] Plan of Treatment: Future Appointments (+ 6 months) and Future Tests (+/- 45 days) The Plan of Treatment section includes future care activities for the patient from all [place] treatmentfacilities. This section includes future appointments and future orders which are active, pending or scheduled. Future Appointments This section includes appointments that were scheduled to occur 6 months from the date of the Encounter, up to a maximum of 20 appointments. The data comes from all [place] treatment facilities. Appointment Date/Time Appointment Type Appointme nt Facility Name Mar 27, 2024 11:00 AM AMBULATORY - PSYCHIATRY [facility] Apr 09, 2024 08:00 AM AMBULATORY - NONE [facility] Apr 30, 2024 09:15 AM AMBULATORY - SURGERY [facility] May 19, 2024 03:00 PM AMBULATORY - NONE [facility] Jun 05, 2024 10:20 AM AMBULATORY - NONE [facility] Jun 05, 2024 11:00 AM AMBULATORY - PSYCHIATRY [facility] Jun 05, 2024 02:00 PM AMBULATORY - NONE [facility] Jun 15, 2024 01:30 PM AMBULATORY - REHAB MEDICIN E [facility] Jun 17, 2024 02:00 PM AMBULATORY - NONE [facility] Jul 13, 2024 11:30 AM AMBULATORY - REHAB MEDICIN E [facility] Jul 13, 2024 01:00 PM AMBULATORY - REHAB MEDICIN E [facility] August 10, 2024 11:00 AM AMBULATORY - REHAB MEDICIN E [facility] August 10, 2024 11:05 AM AMBULATORY - REHAB MEDICIN E [facility] August 14, 2024 01:30 PM AMBULATORY - PSYCHIATRY [facility] Lab Results: +/- 30 days of the encounter This section includes the Chemistry and Hematology Lab Results on record with [place] for the patient. Radiology Reports and Pathology Reports are provided separately, in subsequent sections. Lab Results This section contains the Chemistry/Hematology Results that were resulted 30 days before or 30 daysafter the date of the Encounter. Date/Time Source Result Type Result - Unit Interpretation Reference Range Specimen Type Comment Feb 26, 2024 09:36 AM [facility] AST (SGOT) PLASMA Specimen Type: PLASMA No comment entered. Ordering Provider: TAMARA VALENCIA Report Released Date/Time: Feb 25, 2024 03:04 PM Reporting Lab: [facility] [address] [address] Performing Lab: [facility] [address] [address] AST (SGOT) 41 U/L 15-46 Feb 26, 2024 09:36 AM [facility] ALT (SGPT) PLASMA Specimen Type: PLASM A No comment entered. Ordering Provider: TAMARA VALENCIA Report Released Date/Time: Feb 25, 2024 03:04 PM Reporting Lab: [facility] [address] [place] [phone] Performing Lab: [place] [phone] ALT (SGPT) 33 U/L 11-63 Feb 26, 2024 09:36 AM [facility] HEMOGLOBIN A1C BLOOD Specimen Type: [...] Feb 25, 2024 03:04 PM Reporting Lab: [address] [address] Performing Lab: [place] [phone] HEMOGLOBIN A1C 5.9 4.0-6.0 Feb 26, 2024 09:36 AM [facility] BMP+ALBUMIN PLASMA Specimen Type: PLASM A Comment: Blood older than 8 hours, cells and morphology may be affected. Ordering Provider: TAMARA VALENCIA Report Released Date/Time: Feb 25, 2024 03:04 PM Reporting Lab: [address] [address] Performing Lab: [place] [phone] CREATININE 0.9 mg/dL 0.6-1.3 GLUCOSE 93 mg/dL 70-109 SODIUM 137 mmol/L 135-145 POTASSIUM 4.7 mmol/L 3.5-5.1 CHLORIDE 106 mmol/L 100-109 CO2 25 mmol/L 22-29 ALBUMIN 4.0 g/dL 3.4-5 CALCIUM 9.0 mg/dL 8.3-10.3 UREA NITROGEN 16 mg/dL 5.0-20.0 EGFR CKD-EPI 2020 >90 >90 Feb 26, 2024 09:36 AM [facility] ALKALINE PHOSPHATASE PLASMA Specimen Type: DYAN SMA No comment entered. Ordering Provider: TAMARA VALENCIA Report Released Date/Time: Feb 25, 2024 03:04 PM Reporting Lab: [address] [address] Performing Lab: [place] [id number] [address] ALKALINE PHOSPHATASE 91 U/L 31-126 Feb 26, 2024 09:36 AM [facility] VITAMIN B12 PLASMA Specimen Type: PLASM A No comment entered. Ordering Provider: TAMARA VALENCIA Report Released Date/Time: Feb 25, 2024 03:04 PM Reporting Lab: [facility] [address] [address] Performing Lab: [address] [address] VITAMIN B12 255 pg/mL 180-914 Feb 26, 2024 09:36 AM [facility] TSH P LASMA Specimen Type: PLASMA No comment entered. Ordering Provider: TAMARA VALENCIA Report Released Date/Time: Feb 25, 2024 03:04 PM Reporting Lab: [facility] [address] [place] [phone] Performing Lab: [address] [address] TSH 1.19 u[IU]/mL 0.34-5.6 Feb 26, 2024 09:36 AM [facility] LIPID PANEL PLASMA Specimen Type: PLASM A Comment: Blood older than 8 hours, cells and morphology may be affected. Ordering Provider: TAMARA VALENCIA Report Released Date/Time: Feb 25, 2024 03:04 PM Reporting Lab: [address] [address] Performing Lab: [address] [address] CHOLESTEROL 155 mg/dL 135-200 TRIGLYCERIDES 111 mg/dL 30-200 HDL (DIRECT) 39 mg/dL 30-70 LDL (CALCULATED) 94 mg/dL 0-100 Feb 26, 2024 09:36 AM [facility] CBC WITH DIFFERENTIAL BLOOD Specimen Type: BL OOD Comment: Blood older than 8 hours, cells and morphology may be affected. Ordering Provider: TAMARA VALENCIA Report Released Date/Time: Feb 25, 2024 03:04 PM Reporting Lab: [address] [address] Performing Lab: [address] [address] WBC 4.8 10*3/uL 3.6-10.0 RBC 4.65 10*6/uL [...] ABSOLUTE # Feb 26, 2024 09:36 AM [facility] URINE ALBUMIN CREATININE PANEL URINE Specimen Type: URINE Comment: Unable to calculate Urine Albumin/Creat Ratio. Total Urine Albumin is below linearity of assay. Ordering Provider: TAMARA VALENCIA Report Released Date/Time: Feb 25, 2024 03:04 PM Reporting Lab: [address] [address] Performing Lab: [address] [address] CREATININE, URINE (mg/dL) 190.10 mg/dL S ee Eval URINE ALBUMIN (MICROALBUMIN) <0.5 mg/dL L 0-4.9 URINE ALBUMIN/CREATININE RATIO (UACr) comment ug /mg 0-30 Feb 26, 2024 09:36 AM [facility] VITAMIN D,25-HYDROXY PLASMA Specimen Type: DYAN SMA No comment entered. Ordering Provider: TAMARA VALENCIA Report Released Date/Time: Feb 25, 2024 03:04 PM Reporting Lab: [address] [address] Performing Lab: [address] [address] VITAMIN D,25-HYDROXY 32.5 ng/mL 30.0-100 .0 Feb 26, 2024 09:36 AM [facility] URINALYSIS URINE Specimen Type: URINE Comment: MICROSCOPIC NOT INDICATED Ordering Provider: TAMARA VALENCIA Report Released Date/Time: Feb 25, 2024 03:04 PM Reporting Lab: [facility] [address] [place] [phone] Performing Lab: [address] [address] UA COLOR YELLOW COLORLESS-YELLOW UA SPECIFIC GRAVITY 1.027 1.001-1.035 UA UROBILINOGEN 2.0 mg/dL NEGATIVE UA BILIRUBIN Negative NEGATIVE UA KETONES Negative NEGATIVE UA GLUCOSE Negative NEGATIVE UA PROTEIN Negative NEGATIVE UA PH 6.0 5.0-8.0 UA APPEARANCE CLEAR CLEAR UA BLOOD Negative NEGATIVE UA NITRITE Negative NEGATIVE UA LEUK ESTERASE Negative NEGATIVE Social History: Smoking Status (Most current) and Tobacco Use (All prior to encounter date) This section includes the most current, and the historical, smoking and tobacco- related health factors from the [place] facility where the Encounter took place. Current Smoking Status This section includes the most current smoking, or tobacco-related health factor, from the [place] facility where the Encounter took place. Date/Time Current Smoking Status Comment Facil ity Nov 25, 2023 01:00 PM VA-TOBACCO USER EVERY DAY [facility] Tobacco Use History This section includes a history of the smoking, or tobacco-related health factors, that were collected on or before the date of the Encounter. The data comes from the [place] facility where the Encounter took place. 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 This section includes ALL of a patient's completed or amended [place] Advance and Rescinded Directives. The entries below indicate that a directive exists for the patient, but an actual copy is not included with this document. The data comes from all [place] facilities. Date Advance Directives Provider Source Jul 30, 2016 ADVANCE DIRECTIVE DISCUSSION DOUG CASH [facility] Radiology Reports: +/- 30 days of the [...] the Encounter. The data comes from all [place] treatment facilities. Date/Time Radiology Report Provider Source Feb 28, 2024 11:21 AM ANKLE RIGHT NON-WE IGHT BEARING: YAJAIRA SMITH [id number] -1975 M Exm Date: FEB 28, 2024@11:21 Req Phys: TAMARA VALENCIA Pat Loc: [facility] PACT 1 (Req'g Loc) Img Loc: [facility] Service: [facility], [place] [address] (Case [id number] COMPLETE)ANKLE RIGHT NON-WEIGHT BEARING (RAD Detailed) CPT:97693 Proc Modifiers : RIGHT CPT Modifiers : RT RIGHT SIDE Reason for Study: pain Clinical History: AP, lat, mortise (including weight bearing) Report Status: Verified Date Reported: MAR 02, 2024 Date Verified: MAR 02, 2024 Fibre Technologist E-Sig: Report: PROCEDURE: ANKLE RIGHT NON-WEIGHT BEARING [...] Staff: TIO TODD, Staff Physician Verified by gas pumping station helper for TIO TODD /eliseo TODDLEELAPrince Mckee [facility] Encounter Notes: All associated encounter notes This section contains the clinical notes associated to the Encounter. Date/Time Encounter Note(s) Provider Source Mar 23, 2024 02:39 PM NONVA NOTE: LOCAL TITLE: COMMUNITY CARE-CARE COORDINATION PLAN NOTE STANDARD TITLE: NONVA NOTE DATE OF NOTE: MAR 23, 2024@14:39 ENTRY DATE: MAR 23, 2024@14:39:28 AUTHOR: BRANDON SAMS EXP COSIGNER: URGENCY: STATUS: COMPLETED Community Care Consult: PM Consult No: HSRM Referral #: [id number] Community Provider or Hospital Information [facility] Provider Information [facility] p: [phone] f: [phone] Chief Complaint: ankle pain Patient Admitted? No Level of Care Coordination Moderate Care Coordination was determined from: Chart Review Facility Community Care Office Contact Care Coordination Point of Contact: CLIFTON Waters, RN Services: Basic Care Coordination Services Monitoring and coordination of Rehab/PT Services Direct communication to referring provider Care management, if appropriate Plan: awaiting appt /ben/ BRANDON LAZO, RN Signed: 03/23/2024 14:40 BRANDON SAMS [facility]
--- OUTSIDE RECORDS SUMMARY | 2024-05-26 07:38 | XMS_ITS | Encounter Summary ---
Author Name [facility] [place] [facility] [place] Address [address] [place] [address] Care Team Providers Care Photographic Editor Name Role Phone JUWAN VALENCIA Primary Care Provider UnavailDONTA Lopez Primary [...] section includes the information on record at [place] for the Encounter. Date/Time Encounter Type Encounter Description Reason Pro vider Source May 26, 2024 12:38 PM Outpatient Encounter COMMUNITY CARE CONSULT IHE [...] 20 appointments. The data comes from all [place] treatment facilities. Appointment Date/Time Appointment Type Appointme nt Facility Name Jun 05, 2024 10:20 AM AMBULATORY - NONE [facility] Jun 05, 2024 11:00 AM AMBULATORY - PSYCHIATRY [facility] Jun 05, 2024 02:00 PM AMBULATORY - NONE [facility] Jun 15, 2024 01:30 PM AMBULATORY - REHAB MEDICIN E [facility] Jun 17, 2024 02:00 PM AMBULATORY - NONE [facility]ANGEL VINCE IR[facility] Jul 13, 2024 11:30 AM AMBULATORY - REHAB MEDICIN [facility] Jul 13, 2024 01:00 PM AMBULATORY - REHAB MEDICIN E [facility] August 10, 2024 11:00 AM AMBULATORY - REHAB MEDICIN E [facility] August 10, 2024 11:05 AM AMBULATORY - REHAB MEDICIN E [place] [facility] RANGELVINCE August 14, 2024 01:30 PM AMBULATORY - PSYCHIATRY [facility] Active, Pending, and Scheduled Orders This section includes a listing of several types of active, pending, and scheduled orders, including clinic medications orders, diagnostic test orders, procedure orders and consult orders; where the start date of the order is 45 days before the date of the Encounter or 45 days after the date of theEncounter. The data comes from all [place] treatment facilities. Test Date/Time Test Type Test Details Facility Name Jun 12, 2024 03:43 PM Consult Order COMMUNITY CARE-[facility] CARE Cons Claim Clinician's [facility] VINCE RANGEL Jun 16, 2024 08:14 AM Consult Order [facility] OUTPT Cons Claim Clinician's [facility] Social History: Smoking Status (Most current) and Tobacco Use (All prior to encounter date) This section includes the most current, and the historical, smoking and tobacco- related health factors from the VA facility where the Encounter took place. Current Smoking Status This section includes the most current smoking, or tobacco-related health factor, from the VA facility where the Encounter took place. Date/Time Current Smoking Status Comment Bettye ity Nov 25, 2023 01:00 PM VA-TOBACCO USER EVERY DAY [facility] Tobacco Use History This section includes a history of the smoking, or tobacco-related health factors, that were collected on or before the date of the Encounter. The data comes from the [place] facility where the Encounter took place. Date/Time Smoking Status/Tobacco Use Comment F acility Nov 25, 2023 01:00 PM VA-TOBACCO USE ADVICE [facility] Nov 25, 2023 01:00 PM VA-TOBACCO USE DATA CONTROL ASSISTANT NO [facility] Nov 25, 2023 01:00 PM VA-TOBACCO USE MED NO [facility] Nov 25, 2023 01:00 PM VA-TOBACCO USE WI 30 MIN OF WAKEUP [facility] Nov 25, 2023 01:00 PM VA-TOBACCO USER EVERY DAY [facility] Advance Directives: All historical and current Section Date Range: From patient's date of to the date document was created. This section includes ALL of a patient's completed or amended [place] Advance and Rescinded Directives. The entries below indicate that a directive exists for the patient, but an actual copy is not included with this document. The data comes from all [place] facilities. Date Advance Directives Provider Source Jul 30, 2016 ADVANCE DIRECTIVE DISCUSSION DOUG CASH [facility] Radiology Reports: +/- 30 days of the [...] the Encounter. The data comes from all [place] treatment facilities. Date/Time Radiology Report Provider Source Jun 05, 2024 03:10 PM SPINE LUMBOSACRAL SERIES: YAJAIRA SMITH [id number] -[id number] Ex Date: JUN 05, 2024@15:10 Req Phys: JUWAN VALENCIA Loc: [facility] PACT 1 (Req'g Loc) [facility] Loc: [facility] Service: [facility], [facility] [place] [address] (Case [id number] COMPLETE)SPINE LUMBOSACRAL SERIES (RAD Detailed) CPT:03467 Reason for Study: pain Clinical History: Report Status: Verified Date Reported: JUN 08, 2024 Date Verified: JUN 08, 2024 Hot Mill Observer E-Sig: Report: PROCEDURE: SPINE LUMBOSACRAL SERIES CLINICAL INDICATION: pain TECHNIQUE: COMPARISON: None FINDINGS: The lumbar vertebral body heights appear maintained. Multilevel advanced degenerative disc disease is noted with disc space narrowing most evident at L3-L4. Minimal retrolisthesis of L2 with respect to L3 and L3 with respect to L4 identified. Small anterior osteophytes at L3-L5 identified. No obvious spondylolysis identified. Mild facet hypertrophy at L5-S1 appears to be present. The sacroiliac joint relationships appear maintained. Considerable stool is present within the colon. Impression: Multilevel advanced degenerative disc disease with mild retrolisthesis of L2 with respect to L3 and L3 with respect to L4. Facet hypertrophy at L5-S1. Primary Diagnostic Code: Minor Abnormality or Abn Prev Identified Primary Interpreting Staff: PANCHO HARRISON III, Staff Physician Verified by rn visiting for PANCHO HARRISON III /PANCHO CARIAS III [facility] Encounter Notes: All associated encounter notes This section contains the clinical notes associated to the Encounter. Date/Time Encounter Note(s) Provider Source May 26, 2024 02:00 PM ADDENDUM: LOCAL TITLE: Addendum STANDARD TITLE: ADDENDUM DATE OF NOTE: MAY 26, 2024@14:00:02 ENTRY DATE: MAY 26, 2024@14:00:03 AUTHOR: MELISSA DELUCA EXP COSIGNER: URGENCY: STATUS: COMPLETED NOT Approved #RCT# Consult has been reviewed by a RCT Member [place] was referred to pain management for foot and ankle pain. Do not see that he complained of low back pain in his most recent clinic appt nor do I see that x-rays have been obtained or conservative measures attempted. Recommend that this 's [facility] PCP evaluate his low back pain and determine an appropriate plan of care. /ben/ MELISSA DELUCA MSN,PROP ATTENDANT,OIL ANALYST-C,CRRN Signed: 05/26/2024 14:01 Receipt Acknowledged By: 05/26/2024 15:07 /ben/ JUWAN VALENCIA APRN 05/28/2024 10:08 /ben/ WILFRID VYAS RN 05/27/2024 13:48 /es/ BRANDON MICHAELN, RN --- Original Document --- 05/26/24 COMMUNITY CARE-REQUEST FOR SERVICE NOTE: Request for Services (RFS) documentation [facility] Community Care Consult: COMMUNITY CARE-PM Consult No: [id number] Date scanned: May A Request for Service ([facility]) form [id number] has been received which includes the following: Care Requested: MRI and authorization to treat back pain ICD-10 Dx code: M47.817 Date VA received request: May Date service required: May Requesting Community Provider Information: Name of Ordering Provider: Dr. Sangeeta Moore Office:[facility] Address, City, State: /ben/ BRANDON LAZO, RN Signed: 05/26/2024 12:40 /ben/ MELISSA DELUCA MSN,PROP ATTENDANT,OIL ANALYST-C,CRRN Cosigned: 05/26/2024 13:59 MELISSA DELUCA [facility] May 26, 2024 12:38 PM NONVA NOTE: LOCAL TITLE: COMMUNITY CARE-REQUEST FOR SERVICE NOTE STANDARD TITLE: NONVA NOTE DATE OF NOTE: MAY 26, 2024@12:38 ENTRY DATE: MAY 26, 2024@12:39:09 AUTHOR: BRANDON SAMS EXP COSIGNER: MELISSA DELUCA URGENCY: STATUS: COMPLETED COMMUNITY CARE-REQUEST FOR SERVICE NOTE Has ADDENDA Request for Services (RFS) documentation has been [facility] to [facility] Imaging Community Care Consult: COMMUNITY CARE-PM Consult No: [id number] Date scanned: May A Request for Service (RFS) form [id number] has been received which includes the following: Care Requested: MRI and authorization to treat back pain ICD-10 Dx code: M47.817 Date VA received request: May Date service required: May Requesting Community Provider Information: Name of Ordering Provider: Dr. Sangeeta Moore Office:[facility] Address, City, State: /ben/ BRANDON LAZO, RN Signed: 05/26/2024 12:40 /ben/ MELISSA DELUCA MSN,PROP ATTENDANT,OIL ANALYST-C,CRRN Cosigned: 05/26/2024 13:59 05/26/2024 ADDENDUM STATUS: COMPLETED NOT Approved #RCT# Consult has been reviewed by a RCT Member was referred to pain management for foot and ankle pain. Do not see that he complained of low back pain in his most recent clinic appt nor do I see that x-rays have been obtained or conservative measures attempted. Recommend that this 's [facility] PCP evaluate his low back pain and determine an appropriate plan of care. /ben/ MELISSA DELUCA MSN,PROP ATTENDANT,OIL ANALYST-C,CRRN Signed: 05/26/2024 14:01 Receipt Acknowledged By: 05/26/2024 15:07 /ben/ JUWAN VALENCIA APRN 05/28/2024 10:08 /ben/ WILFRID VYAS RN 05/27/2024 13:48 /ben/ BRANDON LAZO, RN 05/28/2024 ADDENDUM STATUS: COMPLETED was informed of the need for appt with provider for low back pain. He stated understanding. RTC placed alerting MSA to call and schedule appt /ben/ WILFRID VYAS RN Signed: 05/28/2024 10:09 /ben/ JUWAN VALENCIA APRN Cosigned: 05/28/2024 10:31 Receipt Acknowledged By: 05/28/2024 10:27 /ben/ GINETTE MAXWELL 05/28/2024 ADDENDUM STATUS: COMPLETED The [place] is scheduled to see Juwan Valencia on 06/05/2024 at 2:00. /ben/ GINETTE MAXWELL Signed: 05/28/2024 10:29 BRANDON SAMS [place]IN[place]
--- OUTSIDE RECORDS SUMMARY | 2024-05-27 08:48 | XMS_ITS | Encounter Summary ---
Author Name [facility] [place] [facility] [place] Address [address] [place] [address] Care Team Providers Care Early Education Teacher Name Role Phone TAMARA VALENCIA Primary Care [...] Encounter Description Reason Pro vider Source May 27, 2024 01:48 PM Outpatient Encounter COMMUNITY CARE CONSULT IHE [...] 05, 2024 10:20 AM AMBULATORY - NONE [facility] Jun 05, 2024 11:00 AM AMBULATORY - PS[facility]ATRY [facility] Jun 05, 2024 02:00 PM AMBULATORY - NONE [facility] Jun 15, 2024 01:30 PM AMBULATORY - REHAB MEDICIN E [facility] Jun 17, 2024 02:00 PM AMBULATORY - NONE [facility] Jul 13, 2024 11:30 AM AMBULATORY - REHAB MEDICIN [facility] Jul 13, 2024 01:00 PM AMBULATORY - REHAB MEDICIN E [facility] August 10, 2024 11:00 AM AMBULATORY - REHAB MEDICIN E [facility] August 10, 2024 11:05 AM AMBULATORY - REHAB MEDICIN E [place] [facility] RANGELVINCE August 14, 2024 01:30 PM AMBULATORY - PSYCHIATRY [facility] Active, Pending, and Scheduled Orders This [...] Order COMMUNITY CARE-[facility] SKILLED HOME CARE Cons Whiskey Filterer's [facility]CE RANGEL Jun 16, 2024 08:14 AM Consult Order PM[facility] OUTPT Cons Whiskey Filterer's [facility] Social History: Smoking Status (Most current) [...] the Encounter. The data comes from the [place] facility where the Encounter took place. Date/Time Smoking Status/Tobacco Use Comment F acility Nov 25, 2023 01:00 PM VA-TOBACCO USE ADVICE [facility] Nov 25, 2023 01:00 PM VA-TOBACCO USE AUDITING MANAGER NO [facility] Nov 25, 2023 01:00 [...] 30, 2016 ADVANCE DIRECTIVE DISCUSSION [facility] Radiology Reports: +/- 30 days of [...] 03:10 PM SPINE LUMBOSACRAL SERIES: YAJAIRA SMITH [id number] -1975 Ex Date: JUN 05, 2024@15:10 Req Phys: TAMARA VALENCIA Loc: [facility] PACT 1 (Req'g Loc) [facility] Loc: [facility]: [facility] [place] [address] (Case [id number] COMPLETE)SPINE LUMBOSACRAL SERIES (RAD Detailed) CPT:26901 Reason for Study: pain Clinical History: Report Status: Verified Date Reported: JUN 08, 2024 Date Verified: JUN 08, 2024 Container Repairer E-Sig: Report: PROCEDURE: SPINE LUMBOSACRAL SERIES CLINICAL [...] PANCHO HARRISON III, Staff Physician Verified by all source analyst for PANCHO HARRISON III /PANCHO CARIAS III [facility] Encounter Notes: All associated encounter notes This section contains the clinical notes associated to the Encounter. Date/Time Encounter Note(s) Provider Source May 27, 2024 01:48 PM LETTERS: LOCAL TITLE: [facility]-REQUEST FOR SERVICES (RFS) LETTER STANDARD TITLE: LETTERS DATE OF NOTE: MAY 27, 2024@13:48 ENTRY DATE: MAY 27, 2024@13:48:37 AUTHOR: BRANDON SAMS COSIGNER: URGENCY: STATUS: COMPLETED Dear Provider, Mears Information: Patient Name: YAJAIRA SMITH Date of : Nov The [facility] department has received the request to eval/treat back pain from you for services that were not originally authorized in the [employer] for this Mears. Upon review, the following determination has been made: Service has been denied: Care has been deemed clinically inappropriate. Reason: NOT Approved #RCT# Consult has been reviewed by a RCT Member was referred to pain management for foot and ankle pain. Do not see that he complained of low back pain in his most recent clinic appt nor do I see that x-rays have been obtained or conservative measures attempted. Recommend that this [facility] PCP evaluate his low back pain and determine an appropriate plan of care. /ben/ MELISSA DELUCA MSN,TOURIST ADVISER,CHECK TOTALER-C,CRRN Signed: 05/26/2024 14:01 Should you have questions, please contact us at [phone] to speak with a patient senior service aide. As a reminder, if applicable, return medical records within 30 days for routine services. Sincerely, [facility] BRANDON SAMS STEHEKINVINCE
--- OUTSIDE RECORDS SUMMARY | 2024-05-28 02:32 | XMS_ITS | Encounter Summary ---
Author Name [facility] [place] [facility] [place] Organization [place] Address [address] [place] [address] Care Team Providers Care Carbonating Stone Cleaner Name Role Phone TAMARA VALENCIA Primary Care [...] Encounter Description Reason Pro vider Source May 28, 2024 07:32 AM Outpatient Encounter COMMUNITY CARE CONSULT IHE [...] 05, 2024 10:20 AM AMBULATORY - NONE [facility]CE SEG[facility] Jun 05, 2024 11:00 AM AMBULATORY - PSYCHIATRY [facility] Jun 05, 2024 02:00 PM AMBULATORY - NONE [facility] Jun 15, 2024 01:30 PM AMBULATORY - REHAB MEDICIN E [facility] Jun 17, 2024 02:00 PM AMBULATORY - NONE [facility] RANGEL [facility] IR[facility] Jul 13, 2024 11:30 AM AMBULATORY - REHAB MEDICIN [facility] Jul 13, 2024 01:00 PM AMBULATORY - REHAB MEDICIN E [facility] August 10, 2024 11:00 AM AMBULATORY - REHAB MEDICIN E [facility] August 10, 2024 11:05 AM AMBULATORY - REHAB MEDICIN E [place] [facility] RANGELV[facility]CE August 14, 2024 01:30 PM AMBULATORY - PSYCHIATRY [facility] Active, Pending, and Scheduled Orders This [...] Order COMMUNITY CARE-GEC SKILLED HOME CARE Cons Director Of Rehabilitation And Wellness's [facility] GRECIA VINCE RANGEL Jun 16, 2024 08:14 AM Consult Order PM[facility] OUTPT Cons Director Of Rehabilitation And Wellness's [facility] Social History: Smoking Status (Most current) [...] Nov 25, 2023 01:00 PM VA-TOBACCO USE RADIO TELEVISION ANNOUNCER NO [facility] Nov 25, 2023 01:00 [...] 03:10 PM SPINE LUMBOSACRAL SERIES: YAJAIRA SMITH [id number] -1975 Ex Date: JUN 05, 2024@15:10 Req Phys: TAMARA VALENCIA Loc: [facility] PACT 1 (Req'g Loc) [facility] Loc: [facility] Service: [facility] [address] (Case [id number] COMPLETE)SPINE LUMBOSACRAL SERIES (RAD Detailed) CPT:05170 Reason for Study: pain Clinical History: Report Status: Verified Date Reported: JUN 08, 2024 Date Verified: JUN 08, 2024 Human Resource Assistant E-Sig: Report: PROCEDURE: SPINE LUMBOSACRAL SERIES CLINICAL [...] PANCHO HARRISON III, Staff Physician Verified by cattle and wheat farmer for PANCHO HARRISON III /PANCHO CARIAS III [facility] Encounter Notes: All associated encounter notes This section contains the clinical notes associated to the Encounter. Date/Time Encounter Note(s) Provider Source May 28, 2024 07:32 AM NONVA NOTE: LOCAL TITLE: COMMUNITY CARE-CARE COORDINATION PLAN NOTE STANDARD TITLE: NONVA NOTE DATE OF NOTE: MAY 28, 2024@07:32 ENTRY DATE: MAY 28, 2024@07:32:57 AUTHOR: BRANDON SAMS EXP COSIGNER: URGENCY: STATUS: COMPLETED Community Care Consult: Ortho Consult No: HSRM Referral #: [id number] Chief Complaint: foot/ankle pain Patient Admitted? No Level of Care Coordination Complex/Chronic Care Coordination was determined from: Chart Review Facility Community Care Office Contact Care Coordination Point of Contact: CLIFTON Waters, RN Services: Moderate Care Coordination Services Case Management, if appropriate Direct communications with interdisciplinary team Plan: awaiting appt [facility] Bone and Joint - Dr. Devin ROCHA [phone] p: [phone] f: [phone] /es/ BRANDON LAZO, RN Signed: 05/28/2024 07:33 BRANDON SAMS CHATTANOOGAVINCE
--- OUTSIDE RECORDS SUMMARY | 2024-06-05 06:00 | XMS_ITS | Encounter Summary ---
Author Name [facility] [place] Organization [facility] [place] [facility] [place] Address [address] [place] [address] Care Team Providers Care Deckhand Sponge Boat Name Role Phone TAMARA VALENCIA Primary Care Provider DONTA Reed Primary Care Provider Taylor sykes Insurance Providers: [...] section includes the information on record at [place] for the Encounter. Date/Time Encounter Type Encounter Description Reason Provider Source Jun 05, 2024 11:00 AM OFFICE O/P EST MOD 30 MIN [facility] - IND ICD-10-CM F33.2 Major depressv disorder, recurrent severe w/o psych features CATALINO LOONEY Rosibel Encounter Template Text not used by [place] Assessments - Encounter Diagnoses This section includes the primary and secondary diagnoses documented for the Encounter. Date/Time Primary/Secondary Diagnosis Diagnosis Name Provider Source Jun 05, 2024 11:17 AM PRIMARY Major depressv disorder, recurrent severe w/o psych features CATALINO LOONEY [facility] Jun 05, 2024 11:17 AM SECONDARY Alcohol abuse, uncomplicated [facility] Jun 05, 2024 11:17 AM SECONDARY Insomnia, unspecified [facility] Jun 05, 2024 11:17 AM SECONDARY Tobacco use CATALINO LOONEY [facility] Plan of Treatment: Future Appointments (+ 6 months) and Future Tests (+/- 45 days) The Plan of Treatment section includes future care activities for the patient from all [place] [facility] This section includes future appointments and future orders which are active, pending or scheduled. Future Appointments This section includes appointments that were scheduled to occur 6 months from the date of the Encounter, up to a maximum of 20 appointments. The data comes from all [facility]. Appointment Date/Time Appointment Type Appointme nt Facility Name Jun 15, 2024 01:30 PM [facility] Jun 17, 2024 02:00 PM AMBULATORY - NONE [place], [place] B[place] Jul 13, 2024 11:30 AM AMBULATORY - [facility]HAB [facility] Jul 13, 2024 01:00 PM [facility] August 10, 2024 11:00 AM [facility] August 10, 2024 11:05 AM AMBULATORY - REHAB MED[place] August 14, 2024 01:30 PM AMBULATORY - PSYCHIATRY [facility] Active, Pending, and Scheduled Orders This section includes a listing of several types of active, pending, and scheduled orders, including clinic medications orders, diagnostic test orders, procedure orders and consult orders; where the start date of the order is 45 days before the date of the Encounter or 45 days after the date of theEncounter. The data comes from all [facility]. Test Date/Time Test Type Test Details Facility Name Jun 12, 2024 03:43 PM Consult Order [facility] Cons Ekg/Ecg Technician's [place], [place] BOB Jun 16, 2024 08:14 AM Consult Order [facility] Vital Signs: All taken on the encounter date This section contains inpatient and outpatient Vital Signs collected on the date of the Encounter. Date/Time Temperature Pulse Blood Pressure Respiratory Rate SP02 Pain Height Weight Body Mass Index Source Jun 05, 2024 03:06 PM 97.5 100 130/94 20 95 7 74 273 35 [facility] Social History: Smoking Status (Most current) and Tobacco Use (All prior to encounter date) This section includes the most current, and the historical, smoking and tobacco- related health factors from the [place] facility where the Encounter took place. Current Smoking Status This section includes the most current smoking, or tobacco-related health factor, from the [place] facility where the Encounter took place. Date/Time Current Smoking Status Comment Bettye ity Jun 05, 2024 02:00 PM VA-TOBACCO USE FOR DIANA CIGARETTES [facility] Tobacco Use History This section includes a history of the smoking, or tobacco-related health factors, that were collected on or before the date of the Encounter. The data comes from the [place] facility where the Encounter took place. Date/Time Smoking Status/Tobacco Use Comment F acility Jun 05, 2024 02:00 PM VA-TOBACCO USE ARY RY DAY SMOKELESS [facility] Jun 05, 2024 02:00 PM VA-TOBACCO USE FOR DIANA CIGARETTES [facility] Advance Directives: All historical and current Section Date Range: From patient's date of to the date document was created. This section includes ALL of a patient's completed or amended [place] Advance and Rescinded Directives. The entries below indicate that a directive exists for the patient, but an actual copy is not included with this document. The data comes from all [place] facilities. Date Advance Directives Provider Source Jul 30, 2016 ADVANCE DIRECTIVE DISCUSSION [facility] Radiology Reports: +/- 30 days [...] the Encounter. The data comes from all [place] treatment facilities. Date/Time Radiology Report Provider Source Jun 05, 2024 03:10 PM SPINE LUMBOSACRAL SERIES: YAJAIRA SMITH [id number] -[id number] M Exm Date: JUN 05, 2024@15:10 Req Phys: TAMARA VALENCIA Loc: [facility] PACT 1 (Req'g Loc) Img Loc: [facility] Service: Unknown [place], [place] [address] (Case [id number] COMPLETE)SPINE LUMBOSACRAL SERIES (RAD Detailed) CPT:15418 Reason for Study: pain Clinical History: Report Status: Verified Date Reported: JUN 08, 2024 Date Verified: JUN 08, 2024 Reimbursement Representative E-Sig: Report: PROCEDURE: SPINE LUMBOSACRAL SERIES CLINICAL [...] PANCHO HARRISON III, Staff Physician Verified by dehorner for PANCHO HARRISON III /PANCHO CARIAS III [facility] Encounter Notes: All associated encounter notes This section contains the clinical notes associated to the Encounter. Date/Time Encounter Note(s) Provider Source Jun 05, 2024 07:24 AM MENTAL HEALTH MEDI CATION MGT NOTE: LOCAL TITLE: MH MEDICATION MANAGEMENT STANDARD TITLE: MENTAL HEALTH MEDICATION MGT NOTE DATE OF NOTE: JUN 05, 2024@07:24 ENTRY DATE: JUN 05, 2024@07:24:12 AUTHOR: CATALINO LOONEY EXP COSIGNER: URGENCY: STATUS: COMPLETED MENTAL HEALTH MEDICATION MGT NOTE CLINICAL VIDEO TELECONFERENCING/[place] VIDEO CONNECT (CVT/VVC) V1.0: Appointment was conducted via Clinical Video Teleconferencing/[place] Video Connect (CVT/VVC). Telehealth Disclosure: Routine Visit conducted by clinical video telehealth. Examination conducted by clinician. Examination camera used by clinician. Patient verbalized consent obtained prior to the video visit. * The emergency plan, confirmed [place] location for this appointment. * The importance of having a confidential location for the appointment. * The appointment should be treated like a doctor's appointment (no smoking or driving during session, showing up fully dressed, etc.) was notified of right to decline Telehealth services and eligibility for other options. consented to be seen via CVT or VVC APPOINTMENT. This Visit is limited by video technology, equipment available, and connection at the time of this visit. EMERGENCY PLAN: 1) In the event of an emergency, the or family will call emergency services, if capable. The Tele-provider will remain in the virtual medical room until emergency response team arrives and a handoff to the emergency services is complete. 2) If is unable to make emergency call, Tele-provider is to call the [facility] service at [phone] and ask to be connected to emergency services for the [place]'s location. [place]'s education provided and verbal consent requested from the [place] to conduct this encounter and subsequent encounters via telehealth. [place] informed that this visit is confidential, secure and will not be recorded. 's questions answered. [place] verbalized understanding and consents to telehealth encounter. Provider's location and contact information for this appointment: [facility] [address] [place] [address], [address] [place] [address] Home address: Residential Address: Mailing Address: [facility] [address] [address] [place] [address] [facility] County: [place] ([facility] [place] [facility] Addr: Office: MENTAL HEALTH MEDICATION MGT NOTE YAJAIRA SMITH is a 48 yo MALE. Time Spent: 20-30 minutes E&M CHIEF COMPLAINT: Depression INTERVAL HISTORY: This is a 48 yo M w/ depression, anxiety, insomnia, and YAHIR presenting for followup visit. Some concern for bipolarity in remote past. Last seen in March w/ trial of guanfacine. Vet says things are going well. Says all charges are getting dropped which is a huge relief. Having scheduled leg amputation next week, Has been active at gym etc already. Hopeful this will go well and motivated to keep up with PT etc. Says he gained weight on the meds (guanfacine), which he quit. Feels he is doing very well on the venlafaxine otherwise. His mother also agrees with this. Getting along well at the house. She says he has to stay on this for rest of his life. Overall very few mood complaints today. Says some back pains he thinks due to the ankle/leg. 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, no combat Edu: some college Legal: previous false sexual accusations case dropped, which is a relief Inpatient: [facility], ~14yo after cutting fingers off Suicide Attempts: denies SUBSTANCE USE: Tobacco: smokes 3-4 cigs per day Alcohol: none since October 2023 h/o heavy drinking, binge daily drinking DUI 2007 Other: cannabis - has card but gets paranoid otherwise no drugs since ~2009 cocaine in past, DOC amphetamines in past opiates in past, prescribed PAST MEDICATION TRIALS: escitalopram, paroxetine, sertraline, bupropion, buspirone, venlafaxine, carbamazepine, clonazepam, gabapentin, propranolol trazodone(NM), doxepin, methylphenidate(felt weird), concerta(helped in [employer]), atomoxetine(panic atk), guanfacine(wt gain) FAMILY HISTORY: Psychiatric: sister with anxiety, ? bipolar REVIEW OF SYSTEMS: - Constitutional: no fever - Musculoskeletal: chronic pains Active Outpatient Medications (excluding Supplies): Active Outpatient Medications Status 1) ACETAMINOPHEN 325MG TAB TAKE TWO TABLETS BY MOUTH EVERY 8 ACTIVE HOURS NEEDED Indication: FOR PAIN 2) ALBUTEROL 90MCG (CFC-F) 200D ORAL INHL INHALE 1 PUFF BY ACTIVE MOUTH EVERY 6 HOURS NEEDED Indication: FOR CHRONIC OBSTRUCTIVE LUNG DISEASE 3) ATORVASTATIN CALCIUM 80MG TAB TAKE ONE-HALF TABLET BY MOUTH ACTIVE AT BEDTIME Indication: FOR HIGH CHOLESTEROL 4) CHOLECALCIF 25MCG (D3-1,000UNIT) TAB TAKE ONE TABLET BY ACTIVE MOUTH EVERY DAY Indication: FOR VITAMIN D DEFICIENCY 5) CYANOCOBALAMIN 1000MCG TAB TAKE ONE TABLET BY MOUTH EVERY ACTIVE DAY Indication: FOR LOW VITAMIN B-12 6) DOXEPIN 3MG TAB TAKE ONE TABLET BY MOUTH AT BEDTIME (MAY ACTIVE INCREASE TO TWO TABLETS IF NEEDED) Indication: FOR SLEEP 7) GABAPENTIN 300MG CAP TAKE TWO CAPSULES BY MOUTH THREE TIMES ACTIVE A DAY Indication: FOR NEUROPATHIC PAIN 8) IBUPROFEN 600MG TAB TAKE ONE TABLET BY MOUTH EVERY 8 HOURS ACTIVE NEEDED *TAKE WITH FOOD* Indication: FOR PAIN 9) NALOXONE HCL 4MG/SPRAY SOLN NASAL SPRAY SPRAY 1 SPRAY IN ACTIVE NOSE NEEDED IF PERSON DOES NOT START BREATHING IN 2-3 MINUTES, GIVE SECOND DOSE. Indication: FOR OPIOID OVERDOSE 10) NICOTINE 2MG GUM CHEW 1 PIECE IN MOUTH EVERY 4 HOURS HOLD NEEDED Indication: FOR NICOTINE CRAVINGS. 11) OMEPRAZOLE 20MG EC CAP TAKE ONE CAPSULE BY MOUTH BEFORE ACTIVE LUNCH Indication: FOR ACID REFLUX 12) SENNOSIDES 8.6MG TAB TAKE TWO TABLETS BY MOUTH EVERY DAY ACTIVE NEEDED Indication: FOR CONSTIPATION 13) SUMATRIPTAN SUCCINATE 25MG TAB TAKE ONE TABLET BY MOUTH ACTIVE EVERY DAY NEEDED DIRECTED FOR MIGRAINE. IF NOT BETTER IN 2 HOURS MAY REPEAT DOSE TIMES 1. Indication: FOR MIGRAINE HEADACHE 14) TAMSULOSIN HCL 0.4MG CAP TAKE ONE CAPSULE BY MOUTH AT ACTIVE BEDTIME Indication: FOR BPH 15) TIZANIDINE HCL 4MG TAB TAKE ONE TABLET BY MOUTH EVERY 8 ACTIVE HOURS NEEDED *WATCH FOR DROWSINESS* Indication: FOR MUSCLE SPASM 16) VENLAFAXINE HCL 75MG 24HR SA CAP TAKE THREE CAPSULES BY ACTIVE MOUTH EVERY DAY (NOTE DOSE CHANGE) Indication: FOR MOOD/ANXIETY Active Non-VA Medications Status 1) Non-VA ACETAMINOPHEN 250/ASA 250/CAFF 65MG TAB 2 TABLETS ACTIVE MOUTH NEEDED Indication: FOR MIGRAINE HEADACHE 17 Total Medications Allergy Review: LEXAPRO, METHADONE, MORPHINE MENTAL STATUS EXAM: Appearance: WM appearing stated age, fair grooming, casual attire Behavior: calm and cooperative, fair eye contact, no psychomotor agitation polite Motor: no tremors noted Mood: better Affect: fairly bright today again Speech: soft, fluent, normal rate Thought process: goal directed Thought content: (SI, HI, AVH, etc.): No SI, No AVH, no delusions Cognition: -Orientation: grossly intact -Memory: grossly intact -Attention/concentration: good -Language: fluent -Fund of knowledge: good FORMULATION: This is a 48 yo M presenting for followup visit. He reports ongoing depression and anxiety which are improved, given improvement in legal and family stressors. He has h/o substance use disorder. Has had previous relapse on alcohol. Denies any current or historical suicidality. No acute safety concerns, though we reviewed crisis planning etc. DIAGNOSTIC IMPRESSION: Major depressive disorder, recurrent, without psychotic features r/o bipolar disorder, previously dx r/o ADHD, by history Insomnia, unspecified Alcohol abuse, uncomplicated Tobacco use TREATMENT PLAN: Patient's identified goal: improved mood / sleep Objectives: patient reports 50% reduction in symptoms Patient's current motivation for change/treatment is fair. Education provided about diagnosis and treatment options. Plan: - Labs: none - Diagnostic tests: none - Consultations: none - Intervention/psychotherapy: - prev IT w/ SALVADOR Canela @ [facility] - Medications: - continue venlafaxine XR 225mg daily - continue doxepin 3-6mg QHS (just needing 3mg) - off trazodone - off guanfacine - Risks, benefits and SE were reviewed and agrees Next Appointment: ~8 weeks Mental Health records may be released to the patient if they are requested? Yes The [place]: - participated in treatment planning - agrees with scheduled appointments - was provided with information about their illness and treatment - referred to review patient rights posted in the waiting room. - instructed to call prescriber if there were any side effects after the first dose of any medication. - verbalize a plan for safety - is able to verbalize the means of contacting the clinic or presenting to the ER should their condition worsen. - reported understanding of the above with no questions CLINICAL REMINDER ACTIVITY MEDICATION INFORMATION MANAGEMENT TEMPLATE ([place]): Medication Information Management Essential Medication List for Review Essential Medication List for Review with [facility]/Local was used to complete this medication review. A written medication list was provided and reviewed with the patient/caregiver. ESSENTIAL MED LIST: Remote and Local Allergies: FACILITY ALLERGY/ADR -------- [facility] ATOMOXETINE [facility] LEX[facility] METHADONE [facility] MORPHINE CLN[facility]/HLTH [facility] REPT EFF [id number] ESCITAL[facility]RAM [facility] ESCITALOPRAM [facility] METHADONE [facility] MORPHINE [facility] ESCITALOPRAM [facility] METHADONE [facility] MORPHINE <<<<< Active Outpatient Medications (including Supplies): Active Outpatient Medications Status 1) DOXEPIN 3MG TAB TAKE ONE TABLET BY MOUTH AT BEDTIME (NOTE ACTIVE DOSE CHANGE) Indication: FOR SLEEP 2) GUANFACINE 1MG 24HR SA TAB TAKE ONE TABLET BY MOUTH AT ACTIVE BEDTIME FOR 1 WEEK, THEN TAKE TWO TABLETS AT BEDTIME (IF TOLERATING AND NEEDED) Indication: FOR ATTENTION 3) LISINOPRIL 10MG TAB TAKE ONE TABLET BY MOUTH EVERY DAY ACTIVE Indication: FOR HIGH BLOOD PRESSURE 4) MELOXICAM 7.5MG TAB TAKE ONE TABLET BY MOUTH EVERY DAY (DO ACTIVE NOT TAKE WITH OTHER NSAIDS) 5) METHOCARBAMOL 750MG TAB TAKE ONE TABLET BY MOUTH EVERY 6 TO ACTIVE 8 HOURS NEEDED . DO NOT EXCEED 3 TABLETS PER DAY. Indication: FOR MUSCLE SPASM 6) NALOXONE HCL 4MG/SPRAY SOLN NASAL SPRAY SPRAY 1 SPRAY IN ACTIVE NOSE NEEDED IF PERSON DOES NOT START BREATHING IN 2-3 MINUTES, GIVE SECOND DOSE. Indication: FOR OPIOID OVERDOSE 7) NICOTINE 2MG GUM CHEW 1 PIECE IN MOUTH EVERY 4 HOURS HOLD NEEDED Indication: FOR NICOTINE CRAVINGS. 8) SUMATRIPTAN SUCCINATE 25MG TAB TAKE ONE TABLET BY MOUTH ACTIVE EVERY DAY NEEDED DIRECTED FOR MIGRAINE. IF NOT BETTER IN 2 HOURS MAY REPEAT DOSE TIMES 1. Indication: FOR MIGRAINE HEADACHE 9) TAMSULOSIN HCL 0.4MG CAP TAKE ONE CAPSULE BY MOUTH AT ACTIVE BEDTIME Indication: FOR BPH 10) VENLAFAXINE HCL 75MG 24HR SA CAP TAKE THREE CAPSULES BY ACTIVE MOUTH EVERY DAY (NOTE DOSE CHANGE) Indication: FOR MOOD/ANXIETY Active Non-VA Medications Status 1) Non-VA ACETAMINOPHEN 250/ASA 250/CAFF 65MG TAB 2 TABLETS ACTIVE MOUTH NEEDED Indication: FOR MIGRAINE HEADACHE 11 Total Medications <<<<< Active Inpatient Medications (including Supplies): No Medications Found <<<<< No Active Remote Medications for this patient <<<<< Recently Inpatient, Outpatient and Clinic Medications (including Supplies): Issue Date Status Last Fill Inactive Outpatient Medications Refills Expiration 1) ACETAMINOPHEN 325MG TAB Qty: 240 for 30 days Issue: 02/26/24 Sig: TAKE TWO TABLETS BY MOUTH EVERY 8 HOURS Refills: 0 Last : 02/27/24 NEEDED Expr : 03/27/24 Indication: FOR PAIN 2) ALBUTEROL 90MCG (CFC-F) 200D ORAL INHL Qty: Issue: 02/26/24 1 for 30 days Sig: INHALE 1 PUFF BY MOUTH Refills: 0 Last : 02/27/24 EVERY 6 HOURS NEEDED Expr : 03/27/24 Indication: FOR CHRONIC OBSTRUCTIVE LUNG DISEASE 3) ATOMOXETINE 80MG CAP Qty: 30 for 30 days DISCONTINUED Issue: 08/30/23 Sig: TAKE ONE CAPSULE BY MOUTH EVERY MORNING Refills: 5 Last : 08/30/23 FOR ADHD (CONSULT APPROVED) Expr : 08/30/24 4) ATORVASTATIN CALCIUM 80MG TAB Qty: 15 for 30 Issue: 02/26/24 days Sig: TAKE ONE-HALF TABLET BY MOUTH AT Refills: 0 Last : 02/27/24 BEDTIME Expr : 03/27/24 Indication: FOR HIGH CHOLESTEROL 5) CHOLECALCIF 25MCG (D3-1,000UNIT) TAB Qty: 30 Issue: 02/26/24 for 30 days Sig: TAKE ONE TABLET BY MOUTH Refills: 0 Last : 02/27/24 EVERY DAY Expr : 03/27/24 Indication: FOR VITAMIN D DEFICIENCY 6) CYANOCOBALAMIN 1000MCG TAB Qty: 30 for 30 Issue: 02/26/24 days Sig: TAKE ONE TABLET BY MOUTH EVERY DAY Refills: 0 Last : 02/27/24 Indication: FOR LOW VITAMIN B-12 Expr : 03/27/24 7) DOXEPIN 3MG TAB Qty: 60 for 30 days Sig: DISCONTINUED Issue: 03/03/24 TAKE ONE TABLET BY MOUTH AT BEDTIME (MAY Refills: 4 Last : 03/04/24 INCREASE TO TWO TABLETS IF NEEDED) Expr : 03/04/25 Indication: FOR SLEEP 8) GABAPENTIN 300MG CAP Qty: 180 for 30 days Issue: 04/21/24 Sig: TAKE TWO CAPSULES BY MOUTH THREE TIMES Refills: 0 Last : 04/21/24 A DAY Expr : 05/21/24 Indication: FOR NEUROPATHIC PAIN 9) IBUPROFEN 600MG TAB Qty: 60 for 30 days Sig: Issue: 02/26/24 TAKE ONE TABLET BY MOUTH EVERY 8 HOURS Refills: 0 Last : 02/27/24 NEEDED *TAKE WITH FOOD* Expr : 03/27/24 Indication: FOR PAIN 10) MED ORGANIZER 7DAY/4 SLOT APEX#[id number] Qty: 1 Issue: 11/15/23 for 90 days Sig: USE DIRECTED EVERY DAY Refills: 0 Last : 11/15/23 Expr : 02/13/24 11) OMEPRAZOLE 20MG EC CAP Qty: 30 for 30 days Issue: 02/26/24 Sig: TAKE ONE CAPSULE BY MOUTH BEFORE LUNCH Refills: 0 Last : 02/27/24 Indication: FOR ACID REFLUX Expr : 03/27/24 12) SENNOSIDES 8.6MG TAB Qty: 30 for 15 days Issue: 02/26/24 Sig: TAKE TWO TABLETS BY MOUTH EVERY DAY Refills: 0 Last : 02/27/24 NEEDED Expr : 03/27/24 Indication: FOR CONSTIPATION 13) SUMATRIPTAN SUCCINATE 25MG TAB Qty: 18 for DISCONTINUED Issue: 02/26/24 30 days Sig: TAKE ONE TABLET BY MOUTH EVERY Refills: 0 Last : 02/27/24 6 HOURS NEEDED Expr : 03/27/24 Indication: FOR MIGRAINE HEADACHE 14) TABLET CUTTER Qty: 1 for 90 days Sig: USE Issue: 11/15/23 PILL SPLITTER NEEDED TO SPLIT TABLETS IN Refills: 0 Last : 11/15/23 HALF Expr : 02/13/24 15) TAMSULOSIN HCL 0.4MG CAP Qty: 30 for 30 days DISCONTINUED Issue: 04/21/24 Sig: TAKE ONE CAPSULE BY MOUTH AT BEDTIME Refills: 0 Last : 04/21/24 Indication: FOR BPH Expr : 05/21/24 16) TIZANIDINE HCL 4MG TAB Qty: 90 for 30 days Issue: 04/21/24 Sig: TAKE ONE TABLET BY MOUTH EVERY 8 HOURS Refills: 0 Last : 04/21/24 NEEDED *WATCH FOR DROWSINESS* Expr : 05/21/24 Indication: FOR MUSCLE SPASM END OF MEDICATION LIST Medication Reconciliation: Based on the medication review/history taken previously: No medications changes were required. Was medication education provided for new medications or changes to medications? (including medication name, dose, route, reason for use, and potential side effects). No new medications or medication changes during this encounter. The risks and benefits of this medication regimen were discussed with the patient, and the patient agrees with the current treatment plan. Patient declined After Visit Summary or another approved/reconciled medication list at the end of the visit. /ben/ Luke Looney M.D. [facility] Staff Psychiatrist Signed: 06/05/2024 11:25 CATALINO LOONEY [facility]
--- OUTSIDE RECORDS SUMMARY | 2024-06-05 09:00 | XMS_ITS | Encounter Summary ---
Author Name [facility] [place] Address [address] [place] [address] Care Team Providers Care Copy Operator Name Role Phone DONTA BAIRES Primary Care Provider UnavailJUWAN Young Primary Care Provider Taylor sykes Insurance [...] section includes the information on record at [place] for the Encounter. Date/Time Encounter Type Encounter Description Reason Provider Source Jun 05, 2024 02:00 PM OFFICE O/P EST LOW 20 MIN PRIMARY CARE/MEDICINE ICD-10-CM M25.571 Pain in right ankle and joints of right foot DALYROXANARADHA L Rosibel Encounter Template Text not used by [place] Assessments - Encounter Diagnoses This section includes the primary and secondary diagnoses documented for the Encounter. Date/Time Primary/Secondary Diagnosis Diagnosis Name Provider Source Jun 05, 2024 03:48 PM PRIMARY Pain in right ankle and joints of right foot ANNIE,RAMONE S H [facility] Jun 05, 2024 03:48 PM SECONDARY Encounter for immunization RADHA DALY [facility] Jun 05, 2024 03:48 PM SECONDARY Low back pain, unspecified SHAKE SAWYER,RAMONE S H [facility] Plan of Treatment: Future Appointments (+ 6 months) and Future Tests (+/- 45 days) The Plan of Treatment section includes future care activities for the patient from all [place] treatmentfacilities. This section includes future appointments and future orders which are active, pending or scheduled. Future Appointments This section includes appointments that were scheduled to occur 6 months from the date of the Encounter, up to a maximum of 20 appointments. The data comes from all [facility]. Appointment Date/Time Appointment Type Appointme nt Facility Name Jun 15, 2024 01:30 PM [facility] - [facility] Jun 17, 2024 02:00 PM [facility]ORY - NONE [facility] Jul 13, 2024 11:30 AM [facility]ORY - [facility] Jul 13, 2024 01:00 PM [facility]ORY - [facility] August 10, 2024 11:00 AM AMBULATORY - REHAB [facility] August 10, 2024 11:05 AM [facility] August 14, 2024 01:30 PM AMBULATORY - PSYCHIATRY [facility] Active, Pending, and Scheduled Orders This section includes a listing of several types of active, pending, and scheduled orders, including clinic medications orders, diagnostic test orders, procedure orders and consult orders; where the start date of the order is 45 days before the date of the Encounter or 45 days after the date of theEncounter. The data comes from all [facility]. Test Date/Time Test Type Test Details Facility Name Jun 12, 2024 03:43 PM Consult Order [facility] Jun 16, 2024 08:14 AM Consult Order [facility] OUTPT [facility] Vital Signs: All taken on the encounter date This section contains inpatient and outpatient Vital Signs collected on the date of the Encounter. Date/Time Temperature Pulse Blood Pressure Respiratory Rate SP02 Pain Height Weight Body Mass Index Source Jun 05, 2024 03:06 PM 97.5 100 130/94 20 95 7 74 273 35 [facility] Immunizations: All administered on the encounter date This section contains immunizations associated to the Encounter. Immunization Series Date Issued Administered By Site Reaction Lot Number CVX Code Drug Milk Route Deliverer Comment(s) Source TDAP Jun 05, 2024 RADHA DALY RIGHT DELTO ID [id number] SANOFI PASTEUR Completed Series, ADMINISTERE D AT [facility] Social History: Smoking Status (Most current) and Tobacco Use (All prior to encounter date) This section includes the most current, and the historical, smoking and tobacco- related health factors from the [place] facility where the Encounter took place. Current Smoking Status This section includes the most current smoking, or tobacco-related health factor, from the [facility] where the Encounter took place. Date/Time Current Smoking Status Comment Facil ity Jun 05, 2024 02:00 PM VA-TOBACCO USE FOR DIANA CIGARETTES [facility] Tobacco Use History This section includes a history of the smoking, or tobacco-related health factors, that were collected on or before the date of the Encounter. The data comes from the [place] facility where the Encounter took place. Date/Time Smoking Status/Tobacco Use Comment F acility Jun 05, 2024 02:00 PM VA-TOBACCO USE ARY RY DAY SMOKELESS [facility] Jun 05, 2024 02:00 PM VA-TOBACCO USE FOR DIANA CIGARETTES [facility] Advance Directives: All historical and current Section Date Range: From patient's date of to the date document was created. This section includes ALL of a patient's completed or amended [place] Advance and Rescinded Directives. The entries below indicate that a directive exists for the patient, but an actual copy is not included with this document. The data comes from all [place] facilities. Date Advance Directives Provider Source Jul 30, 2016 ADVANCE DIRECTIVE DISCUSSION DOUG CASH [facility] Radiology Reports: +/- 30 days of the [...] the Encounter. The data comes from all [place] treatment facilities. Date/Time Radiology Report Provider Source Jun 05, 2024 03:10 PM SPINE LUMBOSACRAL SERIES: YAJAIRA SMITH [id number] -[id number] M Exm Date: JUN 05, 2024@15:10 Req Phys: JUWAN VALENCIA Pat Loc: [facility] PACT 1 (Req'g Loc) Img Loc: [facility] Service: Unknown [place], [place] [facility] [place] [address] (Case [id number] COMPLETE)SPINE LUMBOSACRAL SERIES (RAD Detailed) CPT:39189 Reason for Study: pain Clinical History: Report Status: Verified Date Reported: JUN 08, 2024 Date Verified: JUN 08, 2024 Space Scheduler E-Sig: Report: PROCEDURE: SPINE LUMBOSACRAL SERIES CLINICAL [...] PANCHO HARRISON III, Staff Physician Verified by soldering inspector for PANCHO HARRISON III /PANCHO CARIAS III [facility] Encounter Notes: All associated encounter notes This section contains the clinical notes associated to the Encounter. Date/Time Encounter Note(s) Provider Source Jun 18, 2024 11:14 AM ADDENDUM: LOCAL TITLE: Addendum STANDARD TITLE: ADDENDUM DATE OF NOTE: JUN 18, 2024@11:14:32 ENTRY DATE: JUN 18, 2024@11:14:34 AUTHOR: WILFRID VYAS COSIGNER: URGENCY: STATUS: COMPLETED [facility] health nurseEkta called stating she went to [facility] for admit. He was telling her he was in so much pain after the amputation that he has had to go to hospital every night since the surgery. He went last night and was going to speak with the hospital about facility placement until they can get the pain under control. Will alert AKIKO MONTOYA for assistance in placement /es/ WILFRID VYAS RN Signed: 06/18/2024 11:16 Receipt Acknowledged By: 06/18/2024 15:30 /ben/ FRANKO BURDEN LCSW Primary Care Bottomer Operator --- Original Document --- 06/05/24 [facility]: Chief Complaint: Lower back pain. HPI: 48-year-old male who is here today complaining of low back pain. This has been going on for over a month. Patient states that he is also scheduled next for amputation of the right foot. Patient has been having issues with elevated blood pressure he is 130/94 at today's visit. This patient is currently taking lisinopril 10 mg about increase that to 20 mg also due to the elevated heart rate related to reinstate his metoprolol 12.5 mg twice a day. Patient had referral to pain management for ankle pain they requested an RFS for low back pain and this was refused I advised the patient that we would replace consult today to include low back pain. Patient has had an x-ray in the past which showed degenerative changes in the S1 L5 area patient will have x-ray today prior to discharge. Are there things in your life that worry you or cause you stress? No REVIEW OF SYSTEMS: A 14-point ROS was conducted and was negative with the exception of the pertinent positives and negatives as aforementioned in the HPI above. PAST MEDICAL HISTORY: See EMR PSH/FH/SH: Reviewed with no changes. CURRENT MEDICATIONS: see Medication list ALLERGIES: SEE Current allergy list CURRENT VITALS: 130/94 pulse 100 respirations 20 O2 sat 95% room air temp 97.5 weight 273.0 pounds height 74 inches. Physical Exam General: Alert, no acute distress. Skin: Warm, dry, pink, intact. Head: Normocephalic, Neck: Supple, trachea midline, no tenderness, no JVD. Eye: Pupils are equal, round and reactive to light, extraocular movements are intact. Ears, nose, mouth and throat: Tympanic membranes clear, oral mucosa moist. Cardiovascular: Regular rate and rhythm, No murmur, Normal peripheral perfusion. Respiratory: Lungs are clear to auscultation, respirations are non-labored. Chest wall: No tenderness, No deformity. Back: Normal range of motion, Normal alignment, Musculoskeletal: Normal ROM, normal strength, no swelling. Gastrointestinal: Soft, Nontender. Neurological: Alert and oriented to person, place, time, and situation, No focal neurological deficit observed, CN II-XII intact, normal sensory observed. Lymphatics: No lymphadenopathy. Psychiatric: Cooperative, appropriate mood & affect. ASSESSMENT/PLAN: will continue taking medications as prescribed I will prescribe him Tylenol 3 1 tab 4 times a day #12 no refill through the voucher program. Patient and I discussed keep scheduled appointment on for right ankle amputation. Patient advised to will contact the clinic or go to the emergency room if any issues between now and then. Patient also discussed that he will most likely be changing to [facility] as he lives in [place] after surgery is completed. CONSULTS: Pain management for low back pain RETURN TO CLINIC: As Scheduled and PRN CLINICAL REMINDER ACTIVITY MEDICATION INFORMATION MANAGEMENT TEMPLATE ([place]): Medication Information Management Essential Medication List for Review Essential Medication List for Review with [facility]/Local was used to complete this medication review. A written medication list was provided and reviewed with the patient/caregiver. ESSENTIAL MED LIST: Remote and Local Allergies: FACILITY ALLERGY/ADR -------- [facility] ATOMOXETINE [facility] LEXAPRO [facility] METHADONE [facility] MORPHINE CLNCL/HLTH [facility] REPT EFF [id number] ESCITALOPRAM [facility] ESCITALOPRAM [facility] METHADONE [facility] MORPHINE [place] [facility] ESCITALOPRAM [place] [facility] METHADONE [place] [facility] MORPHINE <<<<< Active Outpatient Medications (including Supplies): Active Outpatient Medications Status 1) DOXEPIN 3MG TAB TAKE ONE TABLET BY MOUTH AT BEDTIME (NOTE ACTIVE DOSE CHANGE) Indication: FOR SLEEP 2) LISINOPRIL 10MG TAB TAKE ONE TABLET BY MOUTH EVERY DAY ACTIVE Indication: FOR HIGH BLOOD PRESSURE 3) MELOXICAM 7.5MG TAB TAKE ONE TABLET BY MOUTH EVERY DAY (DO ACTIVE NOT TAKE WITH OTHER NSAIDS) 4) METHOCARBAMOL 750MG TAB TAKE ONE TABLET BY MOUTH EVERY 6 TO ACTIVE 8 HOURS NEEDED . DO NOT EXCEED 3 TABLETS PER DAY. Indication: FOR MUSCLE SPASM 5) NALOXONE HCL 4MG/SPRAY SOLN NASAL SPRAY SPRAY 1 SPRAY IN ACTIVE NOSE NEEDED IF PERSON DOES NOT START BREATHING IN 2-3 MINUTES, GIVE SECOND DOSE. Indication: FOR OPIOID OVERDOSE 6) NICOTINE 2MG GUM CHEW 1 PIECE IN MOUTH EVERY 4 HOURS HOLD NEEDED Indication: FOR NICOTINE CRAVINGS. 7) SUMATRIPTAN SUCCINATE 25MG TAB TAKE ONE TABLET BY MOUTH ACTIVE EVERY DAY NEEDED DIRECTED FOR MIGRAINE. IF NOT BETTER IN 2 HOURS MAY REPEAT DOSE TIMES 1. Indication: FOR MIGRAINE HEADACHE 8) TAMSULOSIN HCL 0.4MG CAP TAKE ONE CAPSULE BY MOUTH AT ACTIVE BEDTIME Indication: FOR BPH Pending Outpatient Medications Status 1) CODEINE 30/ACETAMINOPHEN 300MG TAB TAKE 1 TABLET BY MOUTH PENDING EVERY 6 HOURS NEEDED Indication: FOR PAIN 2) VENLAFAXINE HCL 75MG 24HR SA CAP TAKE THREE CAPSULES BY PENDING MOUTH EVERY DAY Indication: FOR MOOD/ANXIETY Active Non-[place] Medications Status [...] : 05/21/24 Indication: FOR NEUROPATHIC PAIN 9) GUANFACINE 1MG 24HR SA TAB Qty: 53 for 30 DISCONTINUED Issue: 03/27/24 days Sig: TAKE ONE TABLET BY MOUTH AT Refills: 4 Last : 03/31/24 BEDTIME FOR 1 WEEK, THEN TAKE TWO TABLETS AT Expr : 03/28/25 BEDTIME (IF TOLERATING AND NEEDED) Indication: FOR ATTENTION 10) IBUPROFEN 600MG TAB Qty: 60 for 30 days Sig: Issue: 02/26/24 TAKE ONE TABLET BY MOUTH EVERY 8 HOURS Refills: 0 Last : 02/27/24 NEEDED *TAKE WITH FOOD* Expr : 03/27/24 Indication: FOR PAIN 11) MED ORGANIZER 7DAY/4 SLOT APEX#[id number] Qty: 1 Issue: 11/15/23 for 90 days Sig: USE DIRECTED EVERY DAY Refills: 0 Last : 11/15/23 Expr : 02/13/24 12) OMEPRAZOLE 20MG EC CAP Qty: 30 for 30 days Issue: 02/26/24 Sig: TAKE ONE CAPSULE BY MOUTH BEFORE LUNCH Refills: 0 Last : 02/27/24 Indication: FOR ACID REFLUX Expr : 03/27/24 13) SENNOSIDES 8.6MG TAB Qty: 30 for 15 days Issue: 02/26/24 Sig: TAKE TWO TABLETS BY MOUTH EVERY DAY Refills: 0 Last : 02/27/24 NEEDED Expr : 03/27/24 Indication: FOR CONSTIPATION 14) SUMATRIPTAN SUCCINATE 25MG TAB Qty: 18 for DISCONTINUED Issue: 02/26/24 30 days Sig: TAKE ONE TABLET BY MOUTH EVERY Refills: 0 Last : 02/27/24 6 HOURS NEEDED Expr : 03/27/24 Indication: FOR MIGRAINE HEADACHE 15) TABLET CUTTER Qty: 1 for 90 days Sig: USE Issue: 11/15/23 PILL SPLITTER NEEDED TO SPLIT TABLETS IN Refills: 0 Last : 11/15/23 HALF Expr : 02/13/24 16) TAMSULOSIN HCL 0.4MG CAP Qty: 30 for 30 days DISCONTINUED Issue: 04/21/24 Sig: TAKE ONE CAPSULE BY MOUTH AT BEDTIME Refills: 0 Last : 04/21/24 Indication: FOR BPH Expr : 05/21/24 17) TIZANIDINE HCL 4MG TAB Qty: 90 for 30 days Issue: 04/21/24 Sig: TAKE ONE TABLET BY MOUTH EVERY 8 HOURS Refills: 0 Last : 04/21/24 NEEDED *WATCH FOR DROWSINESS* Expr : 05/21/24 Indication: FOR MUSCLE SPASM 18) VENLAFAXINE HCL 75MG 24HR SA CAP Qty: 90 for DISCONTINUED Issue: 08/27/23 30 days Sig: TAKE THREE CAPSULES BY MOUTH Refills: 0 Last : 05/24/24 EVERY DAY (NOTE DOSE CHANGE) Expr : 08/27/24 Indication: FOR MOOD/ANXIETY END OF MEDICATION LIST Medication Reconciliation: Based on the medication review/history taken previously: The following NEW medication(s) were ordered: Comment: See Progress Note Was medication education provided for new medications or changes to medications? (including medication name, dose, route, reason for use, and potential side effects). Yes. Verbal education was provided to patient/caregiver and patient/caregiver verbalized understanding. The risks and benefits of this medication regimen were discussed with the patient, and the patient agrees with the current treatment plan. The patient was provided with the After Visit Summary or another approved/reconciled medication list at the end of the visit. /enio VALENCIA APRN Signed: 06/05/2024 15:50 Receipt Acknowledged By: 06/08/2024 09:08 /enio VYAS RN 06/08/2024 ADDENDUM STATUS: COMPLETED consult placed sent for provider signature CONSULTS: Pain management for low back pain /enio YVAS RN Signed: 06/08/2024 09:09 06/09/2024 ADDENDUM STATUS: COMPLETED Patient's lumbar spine x-ray shows first a considerable amount of stool but can add to his back pain but he does have multilevel degenerative changes recommend pain management patient is currently going in this week for amputation of the right foot and ankle once this has resolved we will look at options for treatment and management. /enio VALENCIA APRN Signed: 06/09/2024 09:32 Receipt Acknowledged By: 06/10/2024 11:14 /enio VYAS RN 06/09/2024 ADDENDUM STATUS: COMPLETED alerting provider for review/recommendations RE CC comment on pain consult did not find he has tried conservative measures for c/o back pain. [place] should complete PT, RICE, and if indicated a back brace. Once conservative measures have been tried then a consult can be submitted if indicated. /enio VYAS RN Signed: 06/09/2024 13:27 Receipt Acknowledged By: 06/09/2024 14:01 /enio VALENCIA APRN 06/09/2024 ADDENDUM STATUS: COMPLETED patient called stating he wanted to know what was going on. His pain clinic called and stated they kicked him out due to the RFS not being approved by CC. [place] was advised to call CC [phone] to discuss his original pain consult that was placed on 03/19/2024 which still should be good. He was informed his pain consult for his back was denied d/t CC stating he need to try conservative measures. Provider was alerted. [place] will call CC RE his original pain consult for his leg /enio VYAS RN Signed: 06/09/2024 15:02 06/10/2024 ADDENDUM STATUS: COMPLETED was informed of the providers review/recommendation RE x-ray results. [place] stated understanding. pain consult for the back was denied d/t needing to try conservative measures prior to pain consult. Alerting provider for what these recommendations for conservative measures would be. Please advise /enio VYAS RN Signed: 06/10/2024 10:09 Receipt Acknowledged By: 06/10/2024 15:52 /enio VALENCIA APRN 06/10/2024 ADDENDUM STATUS: COMPLETED I would recommend that we revisit this issue when the patient is up and going after having foot amputation as at this point in time our best bet would be to wait until we are able to deal with that specifically. /enio VALENCIA APRN Signed: 06/10/2024 15:53 WILFRID VYAS [facility] Jun 10, 2024 10:08 AM ADDENDUM: LOCAL TITLE: Addendum STANDARD TITLE: ADDENDUM DATE OF NOTE: JUN 10, 2024@10:08:14 ENTRY DATE: JUN 10, 2024@10:08:15 AUTHOR: WILFRID VYAS EXP COSIGNER: URGENCY: STATUS: COMPLETED was informed of the providers review/recommendation RE x-ray results. [place] stated understanding. pain consult for the back was denied d/t needing to try conservative measures prior to pain consult. Alerting provider for what these recommendations for conservative measures would be. Please advise /enio VYAS RN Signed: 06/10/2024 10:09 Receipt Acknowledged By: 06/10/2024 15:52 /enio VALENCIA APRN --- Original Document --- 06/05/24 [facility]: Chief Complaint: Lower back pain. HPI: 48-year-old male who is here today complaining of low back pain. This has been going on for over a month. Patient states that he is also scheduled next for amputation of the right foot. Patient has been having issues with elevated blood pressure he is 130/94 at today's visit. This patient is currently taking lisinopril 10 mg about increase that to 20 mg also due to the elevated heart rate related to reinstate his metoprolol 12.5 mg twice a day. Patient had referral to pain management for ankle pain they requested an RFS for low back pain and this was refused I advised the patient that we would replace consult today to include low back pain. Patient has had an x-ray in the past which showed degenerative changes in the S1 L5 area patient will have x-ray today prior to discharge. Are there things in your life that worry you or cause you stress? No REVIEW OF SYSTEMS: A 14-point ROS was conducted and was negative with the exception of the pertinent positives and negatives as aforementioned in the HPI above. PAST MEDICAL HISTORY: See EMR PSH/FH/SH: Reviewed with no changes. CURRENT MEDICATIONS: see Medication list ALLERGIES: SEE Current allergy list CURRENT VITALS: 130/94 pulse 100 respirations 20 O2 sat 95% room air temp 97.5 weight 273.0 pounds height 74 inches. Physical Exam General: Alert, no acute distress. Skin: Warm, dry, pink, intact. Head: Normocephalic, Neck: Supple, trachea midline, no tenderness, no JVD. Eye: Pupils are equal, round and reactive to light, extraocular movements are intact. Ears, nose, mouth and throat: Tympanic membranes clear, oral mucosa moist. Cardiovascular: Regular rate and rhythm, No murmur, Normal peripheral perfusion. Respiratory: Lungs are clear to auscultation, respirations are non-labored. Chest wall: No tenderness, No deformity. Back: Normal range of motion, Normal alignment, Musculoskeletal: Normal ROM, normal strength, no swelling. Gastrointestinal: Soft, Nontender. Neurological: Alert and oriented to person, place, time, and situation, No focal neurological deficit observed, CN II-XII intact, normal sensory observed. Lymphatics: No lymphadenopathy. Psychiatric: Cooperative, appropriate mood & affect. ASSESSMENT/PLAN: [place] will continue taking medications as prescribed I will prescribe him Tylenol 3 1 tab 4 times a day #12 no refill through the voucher program. Patient and I discussed keep scheduled appointment on for right ankle amputation. Patient advised to will contact the clinic or go to the emergency room if any issues between now and then. Patient also discussed that he will most likely be changing to [facility] as he lives in [place] after surgery is completed. CONSULTS: Pain management for low back pain RETURN TO CLINIC: As Scheduled and PRN CLINICAL REMINDER ACTIVITY MEDICATION INFORMATION MANAGEMENT TEMPLATE ([place]): Medication Information Management Essential Medication List for Review Essential Medication List for Review with EM/[place] was used to complete this medication review. A written medication list was provided and reviewed with the patient/caregiver. ESSENTIAL MED LIST: Remote and Local Allergies: FACILITY ALLERGY/ADR -------- [facility] ATOMOXETINE [facility] L[facility] CLNCL/HLTH [facility] REPT EFF [id number] ESCITALOPRAM [facility] ESCITALOPRAM [facility] M[facility]ADONE [facility] M[facility]PHINE [place] [facility] ESCITALOPRAM [facility] M[facility]ADONE [facility] <<<<< Active Outpatient Medications (including Supplies): Active Outpatient Medications Status 1) DOXEPIN 3MG TAB TAKE ONE TABLET BY MOUTH AT BEDTIME (NOTE ACTIVE DOSE CHANGE) Indication: FOR SLEEP 2) LISINOPRIL 10MG TAB TAKE ONE TABLET BY MOUTH EVERY DAY ACTIVE Indication: FOR HIGH BLOOD PRESSURE 3) MELOXICAM 7.5MG TAB TAKE ONE TABLET BY MOUTH EVERY DAY (DO ACTIVE NOT TAKE WITH OTHER NSAIDS) 4) METHOCARBAMOL 750MG TAB TAKE ONE TABLET BY MOUTH EVERY 6 TO ACTIVE 8 HOURS NEEDED . DO NOT EXCEED 3 TABLETS PER DAY. Indication: FOR MUSCLE SPASM 5) NALOXONE HCL 4MG/SPRAY SOLN NASAL SPRAY SPRAY 1 SPRAY IN ACTIVE NOSE NEEDED IF PERSON DOES NOT START BREATHING IN 2-3 MINUTES, GIVE SECOND DOSE. Indication: FOR OPIOID OVERDOSE 6) NICOTINE 2MG GUM CHEW 1 PIECE IN MOUTH EVERY 4 HOURS HOLD NEEDED Indication: FOR NICOTINE CRAVINGS. 7) SUMATRIPTAN SUCCINATE 25MG TAB TAKE ONE TABLET BY MOUTH ACTIVE EVERY DAY NEEDED DIRECTED FOR MIGRAINE. IF NOT BETTER IN 2 HOURS MAY REPEAT DOSE TIMES 1. Indication: FOR MIGRAINE HEADACHE 8) TAMSULOSIN HCL 0.4MG CAP TAKE ONE CAPSULE BY MOUTH AT ACTIVE BEDTIME Indication: FOR BPH Pending Outpatient Medications Status 1) CODEINE 30/ACETAMINOPHEN 300MG TAB TAKE 1 TABLET BY MOUTH PENDING EVERY 6 HOURS NEEDED Indication: FOR PAIN 2) VENLAFAXINE HCL 75MG 24HR SA CAP TAKE THREE CAPSULES BY PENDING MOUTH EVERY DAY Indication: FOR MOOD/ANXIETY Active Non-VA Medications Status [...] : 05/21/24 Indication: FOR NEUROPATHIC PAIN 9) GUANFACINE 1MG 24HR SA TAB Qty: 53 for 30 DISCONTINUED Issue: 03/27/24 days Sig: TAKE ONE TABLET BY MOUTH AT Refills: 4 Last : 03/31/24 BEDTIME FOR 1 WEEK, THEN TAKE TWO TABLETS AT Expr : 03/28/25 BEDTIME (IF TOLERATING AND NEEDED) Indication: FOR ATTENTION 10) IBUPROFEN 600MG TAB Qty: 60 for 30 days Sig: Issue: 02/26/24 TAKE ONE TABLET BY MOUTH EVERY 8 HOURS Refills: 0 Last : 02/27/24 NEEDED *TAKE WITH FOOD* Expr : 03/27/24 Indication: FOR PAIN 11) MED ORGANIZER 7DAY/4 SLOT [facility]#[id number] Qty: 1 Issue: 11/15/23 for 90 days Sig: USE DIRECTED EVERY DAY Refills: 0 Last : 11/15/23 Expr : 02/13/24 12) OMEPRAZOLE 20MG EC CAP Qty: 30 for 30 days Issue: 02/26/24 Sig: TAKE ONE CAPSULE BY MOUTH BEFORE LUNCH Refills: 0 Last : 02/27/24 Indication: FOR ACID REFLUX Expr : 03/27/24 13) SENNOSIDES 8.6MG TAB Qty: 30 for 15 days Issue: 02/26/24 Sig: TAKE TWO TABLETS BY MOUTH EVERY DAY Refills: 0 Last : 02/27/24 NEEDED Expr : 03/27/24 Indication: FOR CONSTIPATION 14) SUMATRIPTAN SUCCINATE 25MG TAB Qty: 18 for DISCONTINUED Issue: 02/26/24 30 days Sig: TAKE ONE TABLET BY MOUTH EVERY Refills: 0 Last : 02/27/24 6 HOURS NEEDED Expr : 03/27/24 Indication: FOR MIGRAINE HEADACHE 15) TABLET CUTTER Qty: 1 for 90 days Sig: USE Issue: 11/15/23 PILL SPLITTER NEEDED TO SPLIT TABLETS IN Refills: 0 Last : 11/15/23 HALF Expr : 02/13/24 16) TAMSULOSIN HCL 0.4MG CAP Qty: 30 for 30 days DISCONTINUED Issue: 04/21/24 Sig: TAKE ONE CAPSULE BY MOUTH AT BEDTIME Refills: 0 Last : 04/21/24 Indication: FOR BPH Expr : 05/21/24 17) TIZANIDINE HCL 4MG TAB Qty: 90 for 30 days Issue: 04/21/24 Sig: TAKE ONE TABLET BY MOUTH EVERY 8 HOURS Refills: 0 Last : 04/21/24 NEEDED *WATCH FOR DROWSINESS* Expr : 05/21/24 Indication: FOR MUSCLE SPASM 18) VENLAFAXINE HCL 75MG 24HR SA CAP Qty: 90 for DISCONTINUED Issue: 08/27/23 30 days Sig: TAKE THREE CAPSULES BY MOUTH Refills: 0 Last : 05/24/24 EVERY DAY (NOTE DOSE CHANGE) Expr : 08/27/24 Indication: FOR MOOD/ANXIETY END OF MEDICATION LIST Medication Reconciliation: Based on the medication review/history taken previously: The following NEW medication(s) were ordered: Comment: See Progress Note Was medication education provided for new medications or changes to medications? (including medication name, dose, route, reason for use, and potential side effects). Yes. Verbal education was provided to patient/caregiver and patient/caregiver verbalized understanding. The risks and benefits of this medication regimen were discussed with the patient, and the patient agrees with the current treatment plan. The patient was provided with the After Visit Summary or another approved/reconciled medication list at the end of the visit. /ben/ JUWAN VALENCIA APRN Signed: 06/05/2024 15:50 Receipt Acknowledged By: 06/08/2024 09:08 /enio VYAS RN 06/08/2024 ADDENDUM STATUS: COMPLETED consult placed sent for provider signature CONSULTS: Pain management for low back pain /enio VYAS RN Signed: 06/08/2024 09:09 06/09/2024 ADDENDUM STATUS: COMPLETED Patient's lumbar spine x-ray shows first a considerable amount of stool but can add to his back pain but he does have multilevel degenerative changes recommend pain management patient is currently going in this week for amputation of the right foot and ankle once this has resolved we will look at options for treatment and management. /ben/ JUWAN VALENCIA APRN Signed: 06/09/2024 09:32 Receipt Acknowledged By: 06/10/2024 11:14 /ben/ WILFRID VYAS RN 06/09/2024 ADDENDUM STATUS: COMPLETED alerting provider for review/recommendations RE CC comment on pain consult did not find he has tried conservative measures for c/o back pain. should complete PT, RICE, and if indicated a back brace. Once conservative measures have been tried then a consult can be submitted if indicated. /ben/ WILFRID VYAS RN Signed: 06/09/2024 13:27 Receipt Acknowledged By: 06/09/2024 14:01 /enio VALENCIA APRN 06/09/2024 ADDENDUM STATUS: COMPLETED patient called stating he wanted to know what was going on. His pain clinic called and stated they kicked him out due to the RFS not being approved by CC. was advised to call CC [phone] to discuss his original pain consult that was placed on 03/19/2024 which still should be good. He was informed his pain consult for his back was denied d/t CC stating he need to try conservative measures. Provider was alerted. will call CC RE his original pain consult for his leg /ben/ WILFRID VYAS RN Signed: 06/09/2024 15:02 06/10/2024 ADDENDUM STATUS: UNSIGNED You may not VIEW this UNSIGNED Addendum. WILFRID VYAS [facility] Jun 09, 2024 01:26 PM ADDENDUM: LOCAL TITLE: Addendum STANDARD TITLE: ADDENDUM DATE OF NOTE: JUN 09, 2024@13:26:59 ENTRY DATE: JUN 09, 2024@13:27 AUTHOR: WILFRID VYAS EXP COSIGNER: URGENCY: STATUS: COMPLETED alerting provider for review/recommendations RE CC comment on pain consult did not find he has tried conservative measures for c/o back pain. [place] should complete PT, RICE, and if indicated a back brace. Once conservative measures have been tried then a consult can be submitted if indicated. /ben/ WILFRID VYAS RN Signed: 06/09/2024 13:27 Receipt Acknowledged By: 06/09/2024 14:01 /ben/ JUWAN Vidal ANNIE BELAL --- Original Document --- 06/05/24 [facility]: Chief Complaint: Lower back pain. HPI: 48-year-old male who is here today complaining of low back pain. This has been going on for over a month. Patient states that he is also scheduled next for amputation of the right foot. Patient has been having issues with elevated blood pressure he is 130/94 at today's visit. This patient is currently taking lisinopril 10 mg about increase that to 20 mg also due to the elevated heart rate related to reinstate his metoprolol 12.5 mg twice a day. Patient had referral to pain management for ankle pain they requested an RFS for low back pain and this was refused I advised the patient that we would replace consult today to include low back pain. Patient has had an x-ray in the past which showed degenerative changes in the S1 L5 area patient will have x-ray today prior to discharge. Are there things in your life that worry you or cause you stress? No REVIEW OF SYSTEMS: A 14-point ROS was conducted and was negative with the exception of the pertinent positives and negatives as aforementioned in the HPI above. PAST MEDICAL HISTORY: See EMR PSH/FH/SH: Reviewed with no changes. CURRENT MEDICATIONS: see Medication list ALLERGIES: SEE Current allergy list CURRENT VITALS: 130/94 pulse 100 respirations 20 O2 sat 95% room air temp 97.5 weight 273.0 pounds height 74 inches. Physical Exam General: Alert, no acute distress. Skin: Warm, dry, pink, intact. Head: Normocephalic, Neck: Supple, trachea midline, no tenderness, no JVD. Eye: Pupils are equal, round and reactive to light, extraocular movements are intact. Ears, nose, mouth and throat: Tympanic membranes clear, oral mucosa moist. Cardiovascular: Regular rate and rhythm, No murmur, Normal peripheral perfusion. Respiratory: Lungs are clear to auscultation, respirations are non-labored. Chest wall: No tenderness, No deformity. Back: Normal range of motion, Normal alignment, Musculoskeletal: Normal ROM, normal strength, no swelling. Gastrointestinal: Soft, Nontender. Neurological: Alert and oriented to person, place, time, and situation, No focal neurological deficit observed, CN II-XII intact, normal sensory observed. Lymphatics: No lymphadenopathy. Psychiatric: Cooperative, appropriate mood & affect. ASSESSMENT/PLAN: will continue taking medications as prescribed I will prescribe him Tylenol 3 1 tab 4 times a day #12 no refill through the voucher program. Patient and I discussed keep scheduled appointment on for right ankle amputation. Patient advised to will contact the clinic or go to the emergency room if any issues between now and then. Patient also discussed that he will most likely be changing to [facility] as he lives in [place] after surgery is completed. CONSULTS: Pain management for low back pain RETURN TO CLINIC: As Scheduled and PRN CLINICAL REMINDER ACTIVITY MEDICATION INFORMATION MANAGEMENT TEMPLATE ([place]): Medication Information Management Essential Medication List for Review Essential Medication List for Review with [facility] was used to complete this medication review. A written medication list was provided and reviewed with the patient/caregiver. ESSENTIAL MED LIST: Remote and Local Allergies: FACILITY ALLERGY/ADR -------- [facility] ATOMOXETINE [facility] LEX[facility] [place] REPT EFF [id number] ESCITALOPRAM [facility]PH[facility] [place] [facility] ESCITALOPRAM [place] [facility] [place] [place] [facility]INE <<<<< Active Outpatient Medications (including Supplies): Active Outpatient Medications Status 1) DOXEPIN 3MG TAB TAKE ONE TABLET BY MOUTH AT BEDTIME (NOTE ACTIVE DOSE CHANGE) Indication: FOR SLEEP 2) LISINOPRIL 10MG TAB TAKE ONE TABLET BY MOUTH EVERY DAY ACTIVE Indication: FOR HIGH BLOOD PRESSURE 3) MELOXICAM 7.5MG TAB TAKE ONE TABLET BY MOUTH EVERY DAY (DO ACTIVE NOT TAKE WITH OTHER NSAIDS) 4) METHOCARBAMOL 750MG TAB TAKE ONE TABLET BY MOUTH EVERY 6 TO ACTIVE 8 HOURS NEEDED . DO NOT EXCEED 3 TABLETS PER DAY. Indication: FOR MUSCLE SPASM 5) NALOXONE HCL 4MG/SPRAY SOLN NASAL SPRAY SPRAY 1 SPRAY IN ACTIVE NOSE NEEDED IF PERSON DOES NOT START BREATHING IN 2-3 MINUTES, GIVE SECOND DOSE. Indication: FOR OPIOID OVERDOSE 6) NICOTINE 2MG GUM CHEW 1 PIECE IN MOUTH EVERY 4 HOURS HOLD NEEDED Indication: FOR NICOTINE CRAVINGS. 7) SUMATRIPTAN SUCCINATE 25MG TAB TAKE ONE TABLET BY MOUTH ACTIVE EVERY DAY NEEDED DIRECTED FOR MIGRAINE. IF NOT BETTER IN 2 HOURS MAY REPEAT DOSE TIMES 1. Indication: FOR MIGRAINE HEADACHE 8) TAMSULOSIN HCL 0.4MG CAP TAKE ONE CAPSULE BY MOUTH AT ACTIVE BEDTIME Indication: FOR BPH Pending Outpatient Medications Status 1) CODEINE 30/ACETAMINOPHEN 300MG TAB TAKE 1 TABLET BY MOUTH PENDING EVERY 6 HOURS NEEDED Indication: FOR PAIN 2) VENLAFAXINE HCL 75MG 24HR SA CAP TAKE THREE CAPSULES BY PENDING MOUTH EVERY DAY Indication: FOR MOOD/ANXIETY Active Non-VA Medications Status [...] : 05/21/24 Indication: FOR NEUROPATHIC PAIN 9) GUANFACINE 1MG 24HR SA TAB Qty: 53 for 30 DISCONTINUED Issue: 03/27/24 days Sig: TAKE ONE TABLET BY MOUTH AT Refills: 4 Last : 03/31/24 BEDTIME FOR 1 WEEK, THEN TAKE TWO TABLETS AT Expr : 03/28/25 BEDTIME (IF TOLERATING AND NEEDED) Indication: FOR ATTENTION 10) IBUPROFEN 600MG TAB Qty: 60 for 30 days Sig: Issue: 02/26/24 TAKE ONE TABLET BY MOUTH EVERY 8 HOURS Refills: 0 Last : 02/27/24 NEEDED *TAKE WITH FOOD* Expr : 03/27/24 Indication: FOR PAIN 11) MED ORGANIZER 7DAY/4 SLOT APEX#[id number] Qty: 1 Issue: 11/15/23 for 90 days Sig: USE DIRECTED EVERY DAY Refills: 0 Last : 11/15/23 Expr : 02/13/24 12) OMEPRAZOLE 20MG EC CAP Qty: 30 for 30 days Issue: 02/26/24 Sig: TAKE ONE CAPSULE BY MOUTH BEFORE LUNCH Refills: 0 Last : 02/27/24 Indication: FOR ACID REFLUX Expr : 03/27/24 13) SENNOSIDES 8.6MG TAB Qty: 30 for 15 days Issue: 02/26/24 Sig: TAKE TWO TABLETS BY MOUTH EVERY DAY Refills: 0 Last : 02/27/24 NEEDED Expr : 03/27/24 Indication: FOR CONSTIPATION 14) SUMATRIPTAN SUCCINATE 25MG TAB Qty: 18 for DISCONTINUED Issue: 02/26/24 30 days Sig: TAKE ONE TABLET BY MOUTH EVERY Refills: 0 Last : 02/27/24 6 HOURS NEEDED Expr : 03/27/24 Indication: FOR MIGRAINE HEADACHE 15) TABLET CUTTER Qty: 1 for 90 days Sig: USE Issue: 11/15/23 PILL SPLITTER NEEDED TO SPLIT TABLETS IN Refills: 0 Last : 11/15/23 HALF Expr : 02/13/24 16) TAMSULOSIN HCL 0.4MG CAP Qty: 30 for 30 days DISCONTINUED Issue: 04/21/24 Sig: TAKE ONE CAPSULE BY MOUTH AT BEDTIME Refills: 0 Last : 04/21/24 Indication: FOR BPH Expr : 05/21/24 17) TIZANIDINE HCL 4MG TAB Qty: 90 for 30 days Issue: 04/21/24 Sig: TAKE ONE TABLET BY MOUTH EVERY 8 HOURS Refills: 0 Last : 04/21/24 NEEDED *WATCH FOR DROWSINESS* Expr : 05/21/24 Indication: FOR MUSCLE SPASM 18) VENLAFAXINE HCL 75MG 24HR SA CAP Qty: 90 for DISCONTINUED Issue: 08/27/23 30 days Sig: TAKE THREE CAPSULES BY MOUTH Refills: 0 Last : 05/24/24 EVERY DAY (NOTE DOSE CHANGE) Expr : 08/27/24 Indication: FOR MOOD/ANXIETY END OF MEDICATION LIST Medication Reconciliation: Based on the medication review/history taken previously: The following NEW medication(s) were ordered: Comment: See Progress Note Was medication education provided for new medications or changes to medications? (including medication name, dose, route, reason for use, and potential side effects). Yes. Verbal education was provided to patient/caregiver and patient/caregiver verbalized understanding. The risks and benefits of this medication regimen were discussed with the patient, and the patient agrees with the current treatment plan. The patient was provided with the After Visit Summary or another approved/reconciled medication list at the end of the visit. /enio VALENCIA APRN Signed: 06/05/2024 15:50 Receipt Acknowledged By: 06/08/2024 09:08 /ben/ WILFRID VYAS RN 06/08/2024 ADDENDUM STATUS: COMPLETED consult placed sent for provider signature CONSULTS: Pain management for low back pain /enio VYAS RN Signed: 06/08/2024 09:09 06/09/2024 ADDENDUM STATUS: COMPLETED Patient's lumbar spine x-ray shows first a considerable amount of stool but can add to his back pain but he does have multilevel degenerative changes recommend pain management patient is currently going in this week for amputation of the right foot and ankle once this has resolved we will look at options for treatment and management. /enio VALENCIA APRN Signed: 06/09/2024 09:32 Receipt Acknowledged By: * AWAITING SIGNATURE * WILFRID YVAS BRENDA F [facility] Jun 09, 2024 09:31 AM ADDENDUM: LOCAL TITLE: Addendum STANDARD TITLE: ADDENDUM DATE OF NOTE: JUN 09, 2024@09:31:05 ENTRY DATE: JUN 09, 2024@09:31:06 AUTHOR: JUWAN VALENCIA EXP COSIGNER: URGENCY: STATUS: COMPLETED Patient's lumbar spine x-ray shows first a considerable amount of stool but can add to his back pain but he does have multilevel degenerative changes recommend pain management patient is currently going in this week for amputation of the right foot and ankle once this has resolved we will look at options for treatment and management. /enio VALENCIA APRN Signed: 06/09/2024 09:32 Receipt Acknowledged By: 06/10/2024 11:14 /enio VYAS RN --- Original Document --- 06/05/24 [facility]: Chief Complaint: Lower back pain. HPI: 48-year-old male who is here today complaining of low back pain. This has been going on for over a month. Patient states that he is also scheduled next for amputation of the right foot. Patient has been having issues with elevated blood pressure he is 130/94 at today's visit. This patient is currently taking lisinopril 10 mg about increase that to 20 mg also due to the elevated heart rate related to reinstate his metoprolol 12.5 mg twice a day. Patient had referral to pain management for ankle pain they requested an RFS for low back pain and this was refused I advised the patient that we would replace consult today to include low back pain. Patient has had an x-ray in the past which showed degenerative changes in the S1 L5 area patient will have x-ray today prior to discharge. Are there things in your life that worry you or cause you stress? No REVIEW OF SYSTEMS: A 14-point ROS was conducted and was negative with the exception of the pertinent positives and negatives as aforementioned in the HPI above. PAST MEDICAL HISTORY: See EMR PSH/FH/SH: Reviewed with no changes. CURRENT MEDICATIONS: see Medication list ALLERGIES: SEE Current allergy list CURRENT VITALS: 130/94 pulse 100 respirations 20 O2 sat 95% room air temp 97.5 weight 273.0 pounds height 74 inches. Physical Exam General: Alert, no acute distress. Skin: Warm, dry, pink, intact. Head: Normocephalic, Neck: Supple, trachea midline, no tenderness, no JVD. Eye: Pupils are equal, round and reactive to light, extraocular movements are intact. Ears, nose, mouth and throat: Tympanic membranes clear, oral mucosa moist. Cardiovascular: Regular rate and rhythm, No murmur, Normal peripheral perfusion. Respiratory: Lungs are clear to auscultation, respirations are non-labored. Chest wall: No tenderness, No deformity. Back: Normal range of motion, Normal alignment, Musculoskeletal: Normal ROM, normal strength, no swelling. Gastrointestinal: Soft, Nontender. Neurological: Alert and oriented to person, place, time, and situation, No focal neurological deficit observed, CN II-XII intact, normal sensory observed. Lymphatics: No lymphadenopathy. Psychiatric: Cooperative, appropriate mood & affect. ASSESSMENT/PLAN: will continue taking medications as prescribed I will prescribe him Tylenol 3 1 tab 4 times a day #12 no refill through the voucher program. Patient and I discussed keep scheduled appointment on for right ankle amputation. Patient advised to will contact the clinic or go to the emergency room if any issues between now and then. Patient also discussed that he will most likely be changing to [facility] as he lives in [place] after surgery is completed. CONSULTS: Pain management for low back pain RETURN TO CLINIC: As Scheduled and PRN CLINICAL REMINDER ACTIVITY MEDICATION INFORMATION MANAGEMENT TEMPLATE ([place]): Medication Information Management Essential Medication List for Review Essential Medication List for Review with EM/[place] was used to complete this medication review. A written medication list was provided and reviewed with the patient/caregiver. ESSENTIAL MED LIST: Remote and Local Allergies: FACILITY ALLERGY/ADR -------- [facility] ATOMOXETINE [facility] [place] REPT EFF [id number] [facility] ESCITALOPRAM [facility] / [facility] <<<<< Active Outpatient Medications (including Supplies): Active Outpatient Medications Status 1) DOXEPIN 3MG TAB TAKE ONE TABLET BY MOUTH AT BEDTIME (NOTE ACTIVE DOSE CHANGE) Indication: FOR SLEEP 2) LISINOPRIL 10MG TAB TAKE ONE TABLET BY MOUTH EVERY DAY ACTIVE Indication: FOR HIGH BLOOD PRESSURE 3) MELOXICAM 7.5MG TAB TAKE ONE TABLET BY MOUTH EVERY DAY (DO ACTIVE NOT TAKE WITH OTHER NSAIDS) 4) METHOCARBAMOL 750MG TAB TAKE ONE TABLET BY MOUTH EVERY 6 TO ACTIVE 8 HOURS NEEDED . DO NOT EXCEED 3 TABLETS PER DAY. Indication: FOR MUSCLE SPASM 5) NALOXONE HCL 4MG/SPRAY SOLN NASAL SPRAY SPRAY 1 SPRAY IN ACTIVE NOSE NEEDED IF PERSON DOES NOT START BREATHING IN 2-3 MINUTES, GIVE SECOND DOSE. Indication: FOR OPIOID OVERDOSE 6) NICOTINE 2MG GUM CHEW 1 PIECE IN MOUTH EVERY 4 HOURS HOLD NEEDED Indication: FOR NICOTINE CRAVINGS. 7) SUMATRIPTAN SUCCINATE 25MG TAB TAKE ONE TABLET BY MOUTH ACTIVE EVERY DAY NEEDED DIRECTED FOR MIGRAINE. IF NOT BETTER IN 2 HOURS MAY REPEAT DOSE TIMES 1. Indication: FOR MIGRAINE HEADACHE 8) TAMSULOSIN HCL 0.4MG CAP TAKE ONE CAPSULE BY MOUTH AT ACTIVE BEDTIME Indication: FOR BPH Pending Outpatient Medications Status 1) CODEINE 30/ACETAMINOPHEN 300MG TAB TAKE 1 TABLET BY MOUTH PENDING EVERY 6 HOURS NEEDED Indication: FOR PAIN 2) VENLAFAXINE HCL 75MG 24HR SA CAP TAKE THREE CAPSULES BY PENDING MOUTH EVERY DAY Indication: FOR MOOD/ANXIETY Active Non-VA Medications Status [...] : 05/21/24 Indication: FOR NEUROPATHIC PAIN 9) GUANFACINE 1MG 24HR SA TAB Qty: 53 for 30 DISCONTINUED Issue: 03/27/24 days Sig: TAKE ONE TABLET BY MOUTH AT Refills: 4 Last : 03/31/24 BEDTIME FOR 1 WEEK, THEN TAKE TWO TABLETS AT Expr : 03/28/25 BEDTIME (IF TOLERATING AND NEEDED) Indication: FOR ATTENTION 10) IBUPROFEN 600MG TAB Qty: 60 for 30 days Sig: Issue: 02/26/24 TAKE ONE TABLET BY MOUTH EVERY 8 HOURS Refills: 0 Last : 02/27/24 NEEDED *TAKE WITH FOOD* Expr : 03/27/24 Indication: FOR PAIN 11) MED ORGANIZER 7DAY/4 SLOT APEX#[id number] Qty: 1 Issue: 11/15/23 for 90 days Sig: USE DIRECTED EVERY DAY Refills: 0 Last : 11/15/23 Expr : 02/13/24 12) OMEPRAZOLE 20MG EC CAP Qty: 30 for 30 days Issue: 02/26/24 Sig: TAKE ONE CAPSULE BY MOUTH BEFORE LUNCH Refills: 0 Last : 02/27/24 Indication: FOR ACID REFLUX Expr : 03/27/24 13) SENNOSIDES 8.6MG TAB Qty: 30 for 15 days Issue: 02/26/24 Sig: TAKE TWO TABLETS BY MOUTH EVERY DAY Refills: 0 Last : 02/27/24 NEEDED Expr : 03/27/24 Indication: FOR CONSTIPATION 14) SUMATRIPTAN SUCCINATE 25MG TAB Qty: 18 for DISCONTINUED Issue: 02/26/24 30 days Sig: TAKE ONE TABLET BY MOUTH EVERY Refills: 0 Last : 02/27/24 6 HOURS NEEDED Expr : 03/27/24 Indication: FOR MIGRAINE HEADACHE 15) TABLET CUTTER Qty: 1 for 90 days Sig: USE Issue: 11/15/23 PILL SPLITTER NEEDED TO SPLIT TABLETS IN Refills: 0 Last : 11/15/23 HALF Expr : 02/13/24 16) TAMSULOSIN HCL 0.4MG CAP Qty: 30 for 30 days DISCONTINUED Issue: 04/21/24 Sig: TAKE ONE CAPSULE BY MOUTH AT BEDTIME Refills: 0 Last : 04/21/24 Indication: FOR BPH Expr : 05/21/24 17) TIZANIDINE HCL 4MG TAB Qty: 90 for 30 days Issue: 04/21/24 Sig: TAKE ONE TABLET BY MOUTH EVERY 8 HOURS Refills: 0 Last : 04/21/24 NEEDED *WATCH FOR DROWSINESS* Expr : 05/21/24 Indication: FOR MUSCLE SPASM 18) VENLAFAXINE HCL 75MG 24HR SA CAP Qty: 90 for DISCONTINUED Issue: 08/27/23 30 days Sig: TAKE THREE CAPSULES BY MOUTH Refills: 0 Last : 05/24/24 EVERY DAY (NOTE DOSE CHANGE) Expr : 08/27/24 Indication: FOR MOOD/ANXIETY END OF MEDICATION LIST Medication Reconciliation: Based on the medication review/history taken previously: The following NEW medication(s) were ordered: Comment: See Progress Note Was medication education provided for new medications or changes to medications? (including medication name, dose, route, reason for use, and potential side effects). Yes. Verbal education was provided to patient/caregiver and patient/caregiver verbalized understanding. The risks and benefits of this medication regimen were discussed with the patient, and the patient agrees with the current treatment plan. The patient was provided with the After Visit Summary or another approved/reconciled medication list at the end of the visit. /ben/ JUWAN VALENCIA APRN Signed: 06/05/2024 15:50 Receipt Acknowledged By: 06/08/2024 09:08 /es/ WILFRID VYAS RN 06/08/2024 ADDENDUM STATUS: COMPLETED consult placed sent for provider signature CONSULTS: Pain management for low back pain /ben/ WILFRID F LILLIAM GÓMEZ Signed: 06/08/2024 09:09 06/09/2024 ADDENDUM STATUS: COMPLETED alerting provider for review/recommendations RE CC comment on pain consult did not find he has tried conservative measures for c/o back pain. [place] should complete PT, RICE, and if indicated a back brace. Once conservative measures have been tried then a consult can be submitted if indicated. /ben/ WILFRID Jose LILLIAM GÓMEZ Signed: 06/09/2024 13:27 Receipt Acknowledged By: 06/09/2024 14:01 /ben/ JUWAN VALENCIA GUEST RELATIONS EXECUTIVE 06/09/2024 ADDENDUM STATUS: COMPLETED patient called stating he wanted to know what was going on. His pain clinic called and stated they kicked him out due to the RFS not being approved by CC. [place] was advised to call CC [phone] to discuss his original pain consult that was placed on 03/19/2024 which still should be good. He was informed his pain consult for his back was denied d/t CC stating he need to try conservative measures. Provider was alerted. [place] will call CC RE his original pain consult for his leg /ben/ WILFRID Jose LILLIAM GÓMEZ Signed: 06/09/2024 15:02 06/10/2024 ADDENDUM STATUS: COMPLETED was informed of the providers review/recommendation RE x-ray results. [place] stated understanding. pain consult for the back was denied d/t needing to try conservative measures prior to pain consult. Alerting provider for what these recommendations for conservative measures would be. Please advise /ben/ WILFRID VYAS RN Signed: 06/10/2024 10:09 Receipt Acknowledged By: * AWAITING SIGNATURE * JUWAN VALENCIA [facility] Jun 05, 2024 03:47 PM ACCOUNTING OF DISC LOSURES NOTE: LOCAL TITLE: STATE PRESCRIPTION DRUG MONITORING PROGRAM STANDARD TITLE: ACCOUNTING OF DISCLOSURES NOTE DATE OF NOTE: JUN 05, 2024@15:47:58 ENTRY DATE: JUN 05, 2024@15:47:58 AUTHOR: JUWAN VALENCIA EXP COSIGNER: URGENCY: STATUS: COMPLETED This PDMP query was submitted by Juwan Valencia. The clinical justification for this PDMP query is to review controlled substances prescribed outside of the [place], and any additional information that may become available, as an important component of standard clinical care, and in accordance with [facility] policy. [facility] [place]. Prescription(s) filled outside the [place] in the last 90 days are noted. However, they do not raise significant safety concerns and do not influence the treatment plan at this time. /ben/ JUWAN VALENCIA GUEST RELATIONS EXECUTIVE Signed: 06/05/2024 15:48 JUWAN VALENCIA [facility] Jun 05, 2024 03:45 PM PRIMARY CARE NOTE: LOCAL TITLE: [facility] STANDARD TITLE: PRIMARY CARE NOTE DATE OF NOTE: JUN 05, 2024@15:45 ENTRY DATE: JUN 05, 2024@15:45:27 AUTHOR: JUWAN VALENCIA EXP COSIGNER: URGENCY: STATUS: COMPLETED [facility] Has ADDENDA Chief Complaint: Lower back pain. HPI: 48-year-old male who is here today complaining of low back pain. This has been going on for over a month. Patient states that he is also scheduled next for amputation of the right foot. Patient has been having issues with elevated blood pressure he is 130/94 at today's visit. This patient is currently taking lisinopril 10 mg about increase that to 20 mg also due to the elevated heart rate related to reinstate his metoprolol 12.5 mg twice a day. Patient had referral to pain management for ankle pain they requested an RFS for low back pain and this was refused I advised the patient that we would replace consult today to include low back pain. Patient has had an x-ray in the past which showed degenerative changes in the S1 L5 area patient will have x-ray today prior to discharge. Are there things in your life that worry you or cause you stress? No REVIEW OF SYSTEMS: A 14-point ROS was conducted and was negative with the exception of the pertinent positives and negatives as aforementioned in the HPI above. PAST MEDICAL HISTORY: See EMR PSH/FH/SH: Reviewed with no changes. CURRENT MEDICATIONS: see Medication list ALLERGIES: SEE Current allergy list CURRENT VITALS: 130/94 pulse 100 respirations 20 O2 sat 95% room air temp 97.5 weight 273.0 pounds height 74 inches. Physical Exam General: Alert, no acute distress. Skin: Warm, dry, pink, intact. Head: Normocephalic, Neck: Supple, trachea midline, no tenderness, no JVD. Eye: Pupils are equal, round and reactive to light, extraocular movements are intact. Ears, nose, mouth and throat: Tympanic membranes clear, oral mucosa moist. Cardiovascular: Regular rate and rhythm, No murmur, Normal peripheral perfusion. Respiratory: Lungs are clear to auscultation, respirations are non-labored. Chest wall: No tenderness, No deformity. Back: Normal range of motion, Normal alignment, Musculoskeletal: Normal ROM, normal strength, no swelling. Gastrointestinal: Soft, Nontender. Neurological: Alert and oriented to person, place, time, and situation, No focal neurological deficit observed, CN II-XII intact, normal sensory observed. Lymphatics: No lymphadenopathy. Psychiatric: Cooperative, appropriate mood & affect. ASSESSMENT/PLAN: [place] will continue taking medications as prescribed I will prescribe him Tylenol 3 1 tab 4 times a day #12 no refill through the voucher program. Patient and I discussed keep scheduled appointment on for right ankle amputation. Patient advised to will contact the clinic or go to the emergency room if any issues between now and then. Patient also discussed that he will most likely be changing to [facility] as he lives in [place] after surgery is completed. CONSULTS: Pain management for low back pain RETURN TO CLINIC: As Scheduled and PRN CLINICAL REMINDER ACTIVITY MEDICATION INFORMATION MANAGEMENT TEMPLATE ([place]): Medication Information Management Essential Medication List for Review Essential Medication List for Review with [facility]/Local was used to complete this medication review. A written medication list was provided and reviewed with the patient/caregiver. ESSENTIAL MED LIST: Remote and Local Allergies: FACILITY ALLERGY/ADR -------- [facility] ATOMOXETINE [facility] LEXAPRO [facility] METHADONE [facility] MORPHINE CLNCL/TH [place] REPT EFF [id number] ESCITALOPRAM [facility] ESCITALOPRAM [facility] METHADONE [facility] MORPHINE [place] [facility] ESCITALOPRAM SUN'AQ [facility] METHADONE SUN'[facility] MORPHINE <<<<< Active Outpatient Medications (including Supplies): Active Outpatient Medications Status 1) DOXEPIN 3MG TAB TAKE ONE TABLET BY MOUTH AT BEDTIME (NOTE ACTIVE DOSE CHANGE) Indication: FOR SLEEP 2) LISINOPRIL 10MG TAB TAKE ONE TABLET BY MOUTH EVERY DAY ACTIVE Indication: FOR HIGH BLOOD PRESSURE 3) MELOXICAM 7.5MG TAB TAKE ONE TABLET BY MOUTH EVERY DAY (DO ACTIVE NOT TAKE WITH OTHER NSAIDS) 4) METHOCARBAMOL 750MG TAB TAKE ONE TABLET BY MOUTH EVERY 6 TO ACTIVE 8 HOURS NEEDED . DO NOT EXCEED 3 TABLETS PER DAY. Indication: FOR MUSCLE SPASM 5) NALOXONE HCL 4MG/SPRAY SOLN NASAL SPRAY SPRAY 1 SPRAY IN ACTIVE NOSE NEEDED IF PERSON DOES NOT START BREATHING IN 2-3 MINUTES, GIVE SECOND DOSE. Indication: FOR OPIOID OVERDOSE 6) NICOTINE 2MG GUM CHEW 1 PIECE IN MOUTH EVERY 4 HOURS HOLD NEEDED Indication: FOR NICOTINE CRAVINGS. 7) SUMATRIPTAN SUCCINATE 25MG TAB TAKE ONE TABLET BY MOUTH ACTIVE EVERY DAY NEEDED DIRECTED FOR MIGRAINE. IF NOT BETTER IN 2 HOURS MAY REPEAT DOSE TIMES 1. Indication: FOR MIGRAINE HEADACHE 8) TAMSULOSIN HCL 0.4MG CAP TAKE ONE CAPSULE BY MOUTH AT ACTIVE BEDTIME Indication: FOR BPH Pending Outpatient Medications Status 1) CODEINE 30/ACETAMINOPHEN 300MG TAB TAKE 1 TABLET BY MOUTH PENDING EVERY 6 HOURS NEEDED Indication: FOR PAIN 2) VENLAFAXINE HCL 75MG 24HR SA CAP TAKE THREE CAPSULES BY PENDING MOUTH EVERY DAY Indication: FOR MOOD/ANXIETY Active Non-VA Medications Status [...] : 05/21/24 Indication: FOR NEUROPATHIC PAIN 9) GUANFACINE 1MG 24HR SA TAB Qty: 53 for 30 DISCONTINUED Issue: 03/27/24 days Sig: TAKE ONE TABLET BY MOUTH AT Refills: 4 Last : 03/31/24 BEDTIME FOR 1 WEEK, THEN TAKE TWO TABLETS AT Expr : 03/28/25 BEDTIME (IF TOLERATING AND NEEDED) Indication: FOR ATTENTION 10) IBUPROFEN 600MG TAB Qty: 60 for 30 days Sig: Issue: 02/26/24 TAKE ONE TABLET BY MOUTH EVERY 8 HOURS Refills: 0 Last : 02/27/24 NEEDED *TAKE WITH FOOD* Expr : 03/27/24 Indication: FOR PAIN 11) MED ORGANIZER 7DAY/4 SLOT [place]#[id number] Qty: 1 Issue: 11/15/23 for 90 days Sig: USE DIRECTED EVERY DAY Refills: 0 Last : 11/15/23 Expr : 02/13/24 12) OMEPRAZOLE 20MG EC CAP Qty: 30 for 30 days Issue: 02/26/24 Sig: TAKE ONE CAPSULE BY MOUTH BEFORE LUNCH Refills: 0 Last : 02/27/24 Indication: FOR ACID REFLUX Expr : 03/27/24 13) SENNOSIDES 8.6MG TAB Qty: 30 for 15 days Issue: 02/26/24 Sig: TAKE TWO TABLETS BY MOUTH EVERY DAY Refills: 0 Last : 02/27/24 NEEDED Expr : 03/27/24 Indication: FOR CONSTIPATION 14) SUMATRIPTAN SUCCINATE 25MG TAB Qty: 18 for DISCONTINUED Issue: 02/26/24 30 days Sig: TAKE ONE TABLET BY MOUTH EVERY Refills: 0 Last : 02/27/24 6 HOURS NEEDED Expr : 03/27/24 Indication: FOR MIGRAINE HEADACHE 15) TABLET CUTTER Qty: 1 for 90 days Sig: USE Issue: 11/15/23 PILL SPLITTER NEEDED TO SPLIT TABLETS IN Refills: 0 Last : 11/15/23 HALF Expr : 02/13/24 16) TAMSULOSIN HCL 0.4MG CAP Qty: 30 for 30 days DISCONTINUED Issue: 04/21/24 Sig: TAKE ONE CAPSULE BY MOUTH AT BEDTIME Refills: 0 Last : 04/21/24 Indication: FOR BPH Expr : 05/21/24 17) TIZANIDINE HCL 4MG TAB Qty: 90 for 30 days Issue: 04/21/24 Sig: TAKE ONE TABLET BY MOUTH EVERY 8 HOURS Refills: 0 Last : 04/21/24 NEEDED *WATCH FOR DROWSINESS* Expr : 05/21/24 Indication: FOR MUSCLE SPASM 18) VENLAFAXINE HCL 75MG 24HR SA CAP Qty: 90 for DISCONTINUED Issue: 08/27/23 30 days Sig: TAKE THREE CAPSULES BY MOUTH Refills: 0 Last : 05/24/24 EVERY DAY (NOTE DOSE CHANGE) Expr : 08/27/24 Indication: FOR MOOD/ANXIETY END OF MEDICATION LIST Medication Reconciliation: Based on the medication review/history taken previously: The following NEW medication(s) were ordered: Comment: See Progress Note Was medication education provided for new medications or changes to medications? (including medication name, dose, route, reason for use, and potential side effects). Yes. Verbal education was provided to patient/caregiver and patient/caregiver verbalized understanding. The risks and benefits of this medication regimen were discussed with the patient, and the patient agrees with the current treatment plan. The patient was provided with the After Visit Summary or another approved/reconciled medication list at the end of the visit. /enio VALENCIA APRN Signed: 06/05/2024 15:50 Receipt Acknowledged By: 06/08/2024 09:08 /enio VYAS RN 06/08/2024 ADDENDUM STATUS: COMPLETED consult placed sent for provider signature CONSULTS: Pain management for low back pain /enio VYAS RN Signed: 06/08/2024 09:09 06/09/2024 ADDENDUM STATUS: COMPLETED Patient's lumbar spine x-ray shows first a considerable amount of stool but can add to his back pain but he does have multilevel degenerative changes recommend pain management patient is currently going in this week for amputation of the right foot and ankle once this has resolved we will look at options for treatment and management. /enio VALENCIA APRN Signed: 06/09/2024 09:32 Receipt Acknowledged By: 06/10/2024 11:14 /enio VYAS RN 06/09/2024 ADDENDUM STATUS: COMPLETED alerting provider for review/recommendations RE CC comment on pain consult did not find he has tried conservative measures for c/o back pain. should complete PT, RICE, and if indicated a back brace. Once conservative measures have been tried then a consult can be submitted if indicated. /enio VYAS RN Signed: 06/09/2024 13:27 Receipt Acknowledged By: 06/09/2024 14:01 /enio VALENCIA APRN 06/09/2024 ADDENDUM STATUS: COMPLETED patient called stating he wanted to know what was going on. His pain clinic called and stated they kicked him out due to the RFS not being approved by . was advised to call [phone] to discuss his original pain consult that was placed on 03/19/2024 which still should be good. He was informed his pain consult for his back was denied d/t CC stating he need to try conservative measures. Provider was alerted. [place] will call CC RE his original pain consult for his leg /ben/ WILFRID VYAS RN Signed: 06/09/2024 15:02 06/10/2024 ADDENDUM STATUS: COMPLETED was informed of the providers review/recommendation RE x-ray results. [place] stated understanding. pain consult for the back was denied d/t needing to try conservative measures prior to pain consult. Alerting provider for what these recommendations for conservative measures would be. Please advise /ben/ WILFRID VYAS RN Signed: 06/10/2024 10:09 Receipt Acknowledged By: 06/10/2024 15:52 /enio VALENCIA APRN 06/10/2024 ADDENDUM STATUS: COMPLETED I would recommend that we revisit this issue when the patient is up and going after having foot amputation as at this point in time our best bet would be to wait until we are able to deal with that specifically. /ben/ JUWAN VALENCIA APRN Signed: 06/10/2024 15:53 06/18/2024 ADDENDUM STATUS: COMPLETED [facility] health nurse, Ekta called stating she went to [facility] for admit. He was telling her he was in so much pain after the amputation that he has had to go to hospital every night since the surgery. He went last night and was going to speak with the hospital about facility placement until they can get the pain under control. Will alert [facility] SW for assistance in placement /ben/ WILFRID VYAS RN Signed: 06/18/2024 11:16 Receipt Acknowledged By: * AWAITING SIGNATURE * FRANKO BURDEN [facility] Jun 05, 2024 03:07 PM PREVENTIVE MEDICIN E NOTE: LOCAL TITLE: CR PREVENTIVE SCREEN STANDARD TITLE: PREVENTIVE MEDICINE NOTE DATE OF NOTE: JUN 05, 2024@15:07 ENTRY DATE: JUN 05, 2024@15:07:30 AUTHOR: RADHA DALY EXP COSIGNER: URGENCY: STATUS: COMPLETED REASON FOR VISIT: [place] c/o low back pain (had xrays a few years back at [facility] in [place] and they said s1-l5 degeneration and bulging discs) and increased b/p. is having R foot amputation next week REQUIRED: High Risk for suspected abuse, neglect or exploitation. High Risk Screening completed at this encounter. No indication of suspected abuse, neglect, assault, molestation, or exploitation. CLINICAL REMINDER ACTIVITY Td/Tdap Immunization: Administered: TDAP Date Administered: Jun 05, 2024 14:00 Series: Complete Milk Route Deliverer: SANOFI PASTEUR Lot: [id number] Exp Date: Jun 06, 2025 [facility]: [id number] Admin Route/Site: INTRAMUSCULAR/RIGHT DELTOID Dosage: 0.5mL Vaccine Information Statement(s): TDAP (TETANUS, DIPHTHERIA, PERTUSSIS) VACCINE VIS Nov 11, 2020 (URDU) Order By: Policy Administered By: Radha Daly The TETANUS/DIPHTHERIA/PERTUSSI S (TDAP) Vaccine Information Statement (VIS) was reviewed with the patient/caregiver which lists the benefits and risks of the vaccine and the risks of not receiving the Tdap vaccine. The patient/caregiver denied any prior severe reaction to this vaccine or its components or a severe allergic reaction, such as anaphylaxis, to any vaccine or any injectable therapy. The patient/caregiver gave verbal consent to receive the vaccine. Tobacco Use Screening: The patient is a former cigarette smoker. The patient uses other type(s) of tobacco every day. Other Tobacco Type(s) used: Smokeless tobacco (e.g., dip, chew, snuff, snus) /ben/ RADHA DALY LPN Signed: 06/05/2024 15:10 RADHA DALY [facility]
--- OUTSIDE RECORDS SUMMARY | 2024-06-12 08:49 | XMS_ITS | Encounter Summary ---
Author Name [facility] [place] [facility] [place] Address [address] [place] [address] Care Team Providers Care Adolescent Coordinator Name Role Phone TAMARA VALENCIA Primary Care [...] section includes the information on record at [place] for the Encounter. Date/Time Encounter Type Encounter Description Reason Pro vider Source Jun 12, 2024 01:49 PM Outpatient Encounter COMMUNITY CARE CONSULT IHE Encounter Template Text not used by [place] Plan of Treatment: Future Appointments (+ 6 [...] 20 appointments. The data comes from all [place] treatment facilities. Appointment Date/Time Appointment Type Appointme nt Facility Name Jun 15, 2024 01:30 PM AMBULATORY - REHAB [facility] Jun 17, 2024 02:00 PM [facility] Jul 13, 2024 11:30 AM AM[facility]ULAT[facility] - REHAB [facility] Jul 13, 2024 01:00 PM AMBULATORY - RE[facility]AB [facility] August 10, 2024 11:00 AM AMBULATORY - REHAB [facility] August 10, 2024 11:05 AM AM[facility]UL[facility] - [facility] August 14, 2024 01:30 PM AMBULATORY - PSYCHIATRY [facility] Active, Pending, and Scheduled Orders This section includes a listing of several types of active, pending, and scheduled orders, including clinic medications orders, diagnostic test orders, procedure orders and consult orders; where the start date of the order is 45 days before the date of the Encounter or 45 days after the date of theEncounter. The data comes from all [place] treatment facilities. Test Date/Time Test Type Test Details Facility Name Jun 12, 2024 03:43 PM Consult Order COMMUNITY CARE-[facility] Cons Continuing Education Instructor's [facility]ANG[facility] Jun 16, 2024 08:14 AM Consult Order [facility] OUTPT Cons Continuing Education Instructor's [facility] Social History: Smoking Status (Most current) [...] the Encounter. The data comes from the [place] facility where the Encounter took place. Date/Time Smoking Status/Tobacco Use Comment F acility Nov 25, 2023 01:00 PM VA-TOBACCO USE ADVICE [facility] Nov 25, 2023 01:00 PM VA-TOBACCO USE GUIDE CRUISE NO [facility] Nov 25, 2023 01:00 PM VA-TOBACCO USE MED NO [facility] Nov 25, 2023 01:00 PM VA-TOBACCO USE WI 30 MIN OF WAKEUP [place] Nov 25, 2023 01:00 PM VA-TOBACCO USER EVERY DAY [place] Advance Directives: All historical and current Section Date Range: From patient's date of to the date document was created. This section includes ALL of a patient's completed or amended [place] Advance and Rescinded Directives. The entries below indicate that a directive exists for the patient, but an actual copy is not included with this document. The data comes from all [place] facilities. Date Advance Directives Provider Source Jul 30, 2016 ADVANCE DIRECTIVE DISCUSSION DOUG CASH [facility] Radiology Reports: +/- 30 days of [...] the Encounter. The data comes from all [place] treatment facilities. Date/Time Radiology Report Provider Source Jun 05, 2024 03:10 PM SPINE LUMBOSACRAL SERIES: YAJAIRA SMITH [id number] -[id number] Exm Date: JUN 05, 2024@15:10 Req Phys: TAMARA VALENCIA Loc: [facility] PACT 1 (Req'g Loc) [facility] Loc: [facility] Service: [place] [address] (Case [id number] COMPLETE)SPINE LUMBOSACRAL SERIES (RAD Detailed) CPT:29314 Reason for Study: pain Clinical History: Report Status: Verified Date Reported: JUN 08, 2024 Date Verified: JUN 08, 2024 Escalator Constructor E-Sig: Report: PROCEDURE: SPINE LUMBOSACRAL SERIES CLINICAL [...] PANCHO HARRISON III, Staff Physician Verified by exhaust emissions inspector for PANCHO HARRISON III /PANCHO CARIAS III [facility] Encounter Notes: All associated encounter notes This section contains the clinical notes associated to the Encounter. Date/Time Encounter Note(s) Provider Source Jun 12, 2024 02:01 PM ADDENDUM: LOCAL TITLE: Addendum STANDARD TITLE: ADDENDUM DATE OF NOTE: JUN 12, 2024@14:01:59 ENTRY DATE: JUN 12, 2024@14:02 AUTHOR: TANA DOMINIQUE EXP COSIGNER: URGENCY: STATUS: COMPLETED ED records ID [id number] for dos 06/11/24 received and uploaded to [employer] for review. /ben/ Tana MAXWELL Signed: 06/12/2024 14:02 Receipt Acknowledged By: 06/15/2024 07:48 /ben/ TAMARA VALENCIA APRN 06/12/2024 14:15 /es/ PAVAN GARBER RN 06/12/2024 15:23 /ben/ WILFRID VYAS RN --- Original Document --- 06/12/24 COMMUNITY CARE-CARE COORDINATION PLAN NOTE: Community Care Consult: Community Care-Orthopedics Consult No: [id number] [facility] Referral #: [id number] Community Provider or Hospital Information Community Hospital Name Hospital: [facility] Address: City: [facility] State: [place] Zip Code: Phone : Chief Complaint: Right BKA [place] was admitted Date of Admission: Jun Admission Diagnosis: Right BKA Jjqthtmj-Msngfetds-Bbqkdlos MD: Tomasa Johnson Type of Bed: Surgery Level of Care Coordination Moderate Care Coordination was determined from: Chart Review, Phone call to [place]/Family/Caregiver Facility Community Care Office Contact Care Coordination Point of Contact: MATT Anders Services: Basic Care Coordination Services Monitoring and coordination of Rehab/PT Services Direct communication to referring provider Care management, if appropriate Plan: POD 1 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 /es/ PAVAN L JCARLOS GÓMEZ Signed: 06/12/2024 13:55 TANA DOMINIQUE [facility]CE [facility] Jun 12, 2024 01:49 PM NONVA NOTE: LOCAL TITLE: COMMUNITY CARE-CARE COORDINATION PLAN NOTE STANDARD TITLE: NONVA NOTE DATE OF NOTE: JUN 12, 2024@13:49 ENTRY DATE: JUN 12, 2024@13:49:34 AUTHOR: PAVAN GARBER EXP COSIGNER: URGENCY: STATUS: COMPLETED COMMUNITY CARE-CARE COORDINATION PLAN NOTE Has ADDENDA Community Care Consult: Community Care-Orthopedics Consult No: [id number] [facility] Referral #: [id number] Community Provider or Hospital Information Community Hospital Name Hospital: [facility] Address: City: [facility] State: [place] Zip Code: Phone : Chief Complaint: Right BKA [place] was admitted Date of Admission: Jun Admission Diagnosis: Right BKA Gsfkyeuz-Rbcnwynri-Pnhelcap MD: Tomasa Johnson Type of Bed: Surgery Level of Care Coordination Moderate Care Coordination was determined from: Chart Review, Phone call to [place]/Family/Caregiver Facility Community Care Office Contact Care Coordination Point of Contact: MATT Anders Services: Basic Care Coordination Services Monitoring and coordination of Rehab/PT Services Direct communication to referring provider Care management, if appropriate Plan: POD 1 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 /ben/ Tana Dominique AMSA Signed: 06/12/2024 14:02 Receipt Acknowledged By: * AWAITING SIGNATURE * TAMARA VALENCIA * AWAITING SIGNATURE * PAVAN GARBER * AWAITING SIGNATURE * WILFRID VYAS [place]
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
--- OUTSIDE RECORDS SUMMARY | 2024-06-17 11:00 | XMS_ITS | Encounter Summary ---
Author Name [facility] [place] [facility] Address [address] [place] [address] Care Team Providers Care Refrigeration Tech Name Role Phone TAMARA VALENCIA Primary Care [...] Type Encounter Description Reason Provider Source Jun 17, 2024 04:00 PM Outpatient Encounter PM&RS PHYSICIAN ICD-10-CM S88.111S Complete traum amp at [employer] [facility] BUCK, STEVE R IHE Encounter Template Text not used by [place] Assessments - Encounter Diagnoses This section includes the primary and secondary diagnoses documented for the Encounter. Date/Time Primary/Secondary Diagnosis Diagnosis Name Provider Source Jun 17, 2024 04:08 PM PRIMARY Complete traum amp at [employer] [facility] BUCK, STEVE R [facility] Plan of Treatment: Future Appointments (+ 6 [...] 20 appointments. The data comes from all [facility]. Appointment Date/Time Appointment Type Appointme nt Facility Name Jul 13, 2024 11:30 AM AMBULATORY - RE[facility]AB MEDICIN [facility] Jul 13, 2024 01:00 PM AMBULATORY - REHAB MEDICIN [facility] August 10, 2024 11:00 AM AMBULATORY - [facility] August 10, 2024 11:05 AM AMBULATORY - REHAB MEDICIN [facility] August 14, 2024 01:30 PM AMBULATORY - PSYCHIATRY [facility] Active, Pending, and Scheduled Orders This section includes a listing of several types of active, pending, and scheduled orders, including clinic medications orders, diagnostic test orders, procedure orders and consult orders; where the start date of the order is 45 days before the date of the Encounter or 45 days after the date of theEncounter. The data comes from all [facility]. Test Date/Time Test Type Test Details Facility Name Jun 12, 2024 03:43 PM Consult Order [facility] [place], [place] Jun 16, 2024 08:14 AM Consult Order [facility] Advance Directives: All historical and current Section Date Range: From patient's date of to the date document was created. This section includes ALL of a patient's completed or amended [place] Advance and Rescinded Directives. The entries below indicate that a directive exists for the patient, but an actual copy is not included with this document. The data comes from all [facility]. Date Advance Directives Provider Source Jul 30, 2016 ADVANCE DIRECTIVE DISCUSSION DOUG CASH [facility] Radiology Reports: +/- 30 days of [...] 03:10 PM SPINE LUMBOSACRAL SERIES: YAJAIRA SMITH [id number] -1975 M Exm Date: JUN 05, 2024@15:10 Req Phys: ANNIETAMARA Drake Pat Loc: [facility] PACT 1 (Req'g Loc) Img Loc: [facility] Service: Unknown [place] [place] [address] (Case [id number] COMPLETE)SPINE LUMBOSACRAL SERIES (RAD Detailed) CPT:16194 Reason for Study: pain Clinical History: Report Status: Verified Date Reported: JUN 08, 2024 Date Verified: JUN 08, 2024 Towel Folder E-Sig: Report: PROCEDURE: SPINE LUMBOSACRAL SERIES CLINICAL [...] PANCHO HARRISON III, Staff Physician Verified by link trainer maintenance man for PANCHO HARRISON III /PANCHO CARIAS III [facility] Encounter Notes: All associated encounter notes This section contains the clinical notes associated to the Encounter. Date/Time Encounter Note(s) Provider Source Jun 17, 2024 04:00 PM PHYSICAL MEDICINE REHAB PHYSICIAN NOTE: LOCAL TITLE: PM&RS/ STANDARD TITLE: PHYSICAL MEDICINE REHAB PHYSICIAN NOTE DATE OF NOTE: JUN 17, 2024@16:00 ENTRY DATE: JUN 17, 2024@16:00:48 AUTHOR: ABIMBOLA FLORES COSIGNER: URGENCY: STATUS: COMPLETED [facility] for [facility] received. 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 I agree with the request for [facility] based on need for treatment and difficulty traveling. [facility] approved for Home Health PT. Time spent reviewing records and performing documentation: 15 min /es/ ABIMBOLA FLORES MD Signed: 06/17/2024 16:08 ABIMBOLA FLORES [facility]
--- OUTSIDE RECORDS SUMMARY | 2024-06-19 04:46 | XMS_ITS | Encounter Summary ---
Author Name [facility] [place] [facility] [place] Address [address] [place] [address] Care Team Providers Care Bisque Placer Name Role Phone TAMARA VLAENCIA Primary Care Provider DONTA Reed Primary Care [...] Encounter Description Reason Pro vider Source Jun 19, 2024 09:46 AM Outpatient Encounter COMMUNITY CARE CONSULT IHE [...] 2024 11:30 AM AMBULATORY - RE[facility]AB MEDICIN [facility] Jul 13, 2024 01:00 PM AMBULATORY - [facility] August 10, 2024 11:00 AM AMBULATORY - [facility] MED[facility]IN [facility] August 10, 2024 11:05 AM AMBULATORY - REHAB MEDICIN E [facility] August 14, 2024 01:30 PM AMBULATORY - PSYCHIATRY [facility] Active, Pending, and Scheduled Orders This section includes a listing of several types of active, pending, and scheduled orders, including clinic medications orders, diagnostic test orders, procedure orders and consult orders; where the start date of the order is 45 days before the date of the Encounter or 45 days after the date of theEncounter. The data comes from all [place] treatment facilities. Test Date/Time Test Type Test Details Facility Name Jun 12, 2024 03:43 PM Consult Order [facility] Cons Cook Manager's Idal[facility] [place] [facility] Jun 16, 2024 08:14 AM Consult Order [facility] OUTPT Cons Cook Manager's [facility] Social History: Smoking Status (Most current) and Tobacco Use (All prior to encounter date) This section includes the most current, and the historical, smoking and tobacco- related health factors from the [facility] facility where the Encounter took place. Current Smoking Status This section includes the most current smoking, or tobacco-related health factor, from the [place] facility where the Encounter [...] Nov 25, 2023 01:00 PM VA-TOBACCO USE CHARGING OPERATOR NO [facility] Nov 25, 2023 01:00 [...] 30, 2016 ADVANCE DIRECTIVE DISCUSSION [facility] Radiology Reports: +/- 30 days [...] 03:10 PM SPINE LUMBOSACRAL SERIES: YAJAIRA SMITH [id number] -1975 M Exm Date: JUN 05, 2024@15:10 Req Phys: TAMARA VALENCIA Pat Loc: [facility] PACT 1 (Req'g Loc) Img Loc: [facility] Service: [facility] [place] [address] (Case [id number] COMPLETE)SPINE LUMBOSACRAL SERIES (RAD Detailed) CPT:84854 Reason for Study: pain Clinical History: Report Status: Verified Date Reported: JUN 08, 2024 Date Verified: JUN 08, 2024 Corporate Administrative Assistant E-Sig: Report: PROCEDURE: SPINE LUMBOSACRAL SERIES [...] PANCHO HARRISON III, Staff Physician Verified by sleeve maker for PANCHO HARRISON III /PANCHO CARIAS III [facility] Encounter Notes: All associated encounter notes This section contains the clinical notes associated to the Encounter. Date/Time Encounter Note(s) Provider Source Jun 19, 2024 09:46 AM NONVA NOTE: LOCAL TITLE: COMMUNITY CARE-[place] SELF PRESENTING CARE COORD PLAN STANDARD TITLE: NONVA NOTE DATE OF NOTE: JUN 19, 2024@09:46 ENTRY DATE: JUN 19, 2024@09:46:49 AUTHOR: KATHY FRIEND III EXP COSIGNER: URGENCY: STATUS: COMPLETED COMMUNITY CARE-[place] SELF PRESENTING CARE COORD PLAN NOTE Has ADDENDA Emergency Notification Intake Date Presenting to the Facility: Method of Contact: Phone [facility] Name: Hospital: [facility] Address: City: [place] State: [place] Zip Code: Phone : [facility] Point of Contact: Name: DR DEL CASTILLO FAX [phone] Chief complaint: BKA, ALCOHOL WITHDRAWAL Primary Diagnosis: Disposition Admitted Route of Admission: Date of Admission: Jun Admitting Diagnosis: BKA, ALCOHOL WITHDRAWAL Community Care Provider: Confirm Level of Care: /ben/ KATHY FRIEND III Signed: 06/19/2024 09:48 Receipt Acknowledged By: 06/19/2024 09:59 /es/ Franca MAXWELL 06/19/2024 11:58 /es/ LUDIVINA WILLOUGHBY RN 06/19/2024 12:06 /es/ IRENA MATTHEWS LPN 06/19/2024 10:46 /es/ GEORGE REYNOSO DNP, RN 06/19/2024 15:09 /es/ VIANEY VAZQUEZ RN PLASTIC JIG AND FIXTURE BUILDER 06/19/2024 ADDENDUM STATUS: COMPLETED This has been processed by [facility] with Notification id# [id number] DOS 06/17/2024. /ben/ IRENA MATTHEWS LPN Signed: 06/19/2024 12:07 KATHY FRIEND III TROYVINCE
--- OUTSIDE RECORDS SUMMARY | 2024-06-19 04:59 | XMS_ITS | Encounter Summary ---
Author Name [facility] [place] [facility] [place] Address [address] [place] [address] Care Team Providers Care Gang Drill Press Operator Name Role Phone TAMARA VALENCIA Primary [...] Policy Duran's Name Patient's Relationship to Policy Druan Selected Encounter This section includes the information on record at [place] for the Encounter. Date/Time Encounter Type Encounter Description Reason Provider Source Jun 19, 2024 09:59 AM CASE MANAGEMENT ADMIN PAT ACTIVTIES (MASNONCT) ICD-10-CM Z65.9 Problem related to unspecified psychosocial circumstances FRANKO BURDEN Encounter Template Text not used by [place] Assessments - Encounter Diagnoses This section includes the primary and secondary diagnoses documented for the Encounter. Date/Time Primary/Secondary Diagnosis Diagnosis Name Provider Source Jun 19, 2024 10:35 AM PRIMARY Problem related to unspecified psychosocial circumstances FRANKO BURDEN [place] [facility] Plan of Treatment: Future Appointments (+ 6 [...] 20 appointments. The data comes from all [place] treatment facilities. Appointment Date/Time Appointment Type Appointme nt Facility Name Jul 13, 2024 11:30 AM AMBULATORY - REHAB MEDICIN E [facility] Jul 13, 2024 01:00 PM AMBULATORY - REHAB MEDICIN [facility] August 10, 2024 11:00 AM AMBULATORY - REHAB MEDICIN [facility] August 10, 2024 11:05 AM AMBULATORY - REHAB MEDICIN E [facility] August 14, 2024 01:30 PM AMBULATORY - PS[place]CHIATRY [place] [facility] Active, Pending, and Scheduled Orders This section includes a listing of several types of active, pending, and scheduled orders, including clinic medications orders, diagnostic test orders, procedure orders and consult orders; where the start date of the order is 45 days before the date of the Encounter or 45 days after the date of theEncounter. The data comes from all [facility]. Test Date/Time Test Type Test Details Facility Name Jun 12, 2024 03:43 PM Consult Order [facility]UNITY CARE-[facility] CARE Cons Chemical Plant Operator Super[facility]'s [facility] Jun 16, 2024 08:14 AM Consult Order [facility] OUTPT Cons Chemical Plant Operator Supervisor's [facility] Social History: Smoking Status (Most current) and Tobacco Use (All prior to encounter date) This section includes the most current, and the historical, smoking and tobacco- related health factors from the [facility] facility where the Encounter took place. Current Smoking Status This section includes the most current smoking, or tobacco-related health factor, from the [place] facility where the Encounter [...] Nov 25, 2023 01:00 PM VA-TOBACCO USE ANNUAL GIVING DIRECTOR NO [facility] Nov 25, 2023 01:00 [...] 30, 2016 ADVANCE DIRECTIVE DISCUSSION DOUG CASH [facility] Radiology Reports: +/- 30 days of [...] 03:10 PM SPINE LUMBOSACRAL SERIES: YAJAIRA SMITH [id number] -1975 M Exm Date: JUN 05, 2024@15:10 Req Phys: TAMARA VALENCIA Loc: [facility] PACT 1 (Req'g Loc) [facility] Loc: [facility] Service: [facility] [place] [address] (Case [id number] COMPLETE)SPINE LUMBOSACRAL SERIES (RAD Detailed) CPT:77843 Reason for Study: pain Clinical History: Report Status: Verified Date Reported: JUN 08, 2024 Date Verified: JUN 08, 2024 Switchboard Operator Assistant E-Sig: Report: PROCEDURE: SPINE LUMBOSACRAL SERIES [...] PANCHO HARRISON III, Staff Physician Verified by fish cake maker for PANCHO HARRISON III /PANCHO CARIAS III [facility] Encounter Notes: All associated encounter notes This section contains the clinical notes associated to the Encounter. Date/Time Encounter Note(s) Provider Source Jun 19, 2024 09:59 AM SOCIAL WORK E & M NOTE: LOCAL TITLE: [facility] SOCIAL WORK TRIAGE ASSESSMENT STANDARD TITLE: SOCIAL WORK E & M NOTE DATE OF NOTE: JUN 19, 2024@09:59 ENTRY DATE: JUN 19, 2024@09:59:23 AUTHOR: FRANKO BURDEN COSIGNER: URGENCY: STATUS: COMPLETED SOCIAL WORK TRIAGE ASSESSMENT Referral source: RN Presenting issues: Other presenting issue: Possible placement Brief summary: JAN received alert from PACT RN indicating that 's home health RN contacted clinic and reported that had requested assistance with placement following recent BKA surgery and pain management issues. Is case management recommended? No Social Work Interventions and Plan: JAN reviewed chart and noted that is currently hospitalized at [facility] in [place], [place]. JAN attempted contact with by phone to offer assistance. Hobson's mother, Shayna Villa, answered the phone and is an approved contact in chart. She provided Hobson's full name and to confirm identity. JAN explained reason for call, explained that [facility] JAN/RN CM will meet with Hobson at some point to assist with d/c planning needs and [facility] staff will monitor Hobson's status and coordinate his d/c needs with [facility]. 's mother acknowledged understanding. She stated that Hobson has mentioned placement but has not discussed anything specific and he is currently not able to discuss his interest/goals for continued care. SW explained role in PACT clinic and agreed to follow up later to check on status and needs. Hobson's mother verbalized agreement and thanked show card writer for the contact. Time: 10 minutes Diagnoses: Problem Related to unspecified Psychosocial Circumstances /es/ FRANKO BURDEN LCSW Primary Care Market Research Interviewer Signed: 06/19/2024 10:36 FRANKO BURDEN [facility]
--- OUTSIDE RECORDS SUMMARY | 2024-06-22 11:06 | XMS_ITS | Encounter Summary ---
Author Name [facility] Address [address] [place] [address] Care Team Providers Care Computer Aided Design Designer Name Role Phone TAMARA VALENCIA Primary Care [...] section includes the information on record at [place] for the Encounter. Date/Time Encounter Type Encounter Description Reason Provider Source Jun 22, 2024 04:06 PM CASE MANAGEMENT ADMIN PAT ACTIVTIES (MASNONCT) ICD-10-CM Z65.9 Problem related to unspecified psychosocial circumstances FRANKO BURDEN Encounter Template Text not used by [place] Assessments - Encounter Diagnoses This section includes the primary and secondary diagnoses documented for the Encounter. Date/Time Primary/Secondary Diagnosis Diagnosis Name Provider Source Jun 22, 2024 04:14 PM PRIMARY Problem related to unspecified psychosocial circumstances [...] 20 appointments. The data comes from all [place] treatment facilities. Appointment Date/Time Appointment Type Appointme nt Facility Name Jul 13, 2024 11:30 AM AMBULATORY - REHAB MEDICIN E [facility] Jul 13, 2024 01:00 PM AMBULATORY - REHAB MEDICIN [facility] August 10, 2024 11:00 AM AMBULATORY - REHAB MEDICIN [facility] August 10, 2024 11:05 AM [facility] August 14, 2024 01:30 PM AMBULATORY - PSYCHIATRY [facility] Active, Pending, and Scheduled Orders This section includes a listing of several types of active, pending, and scheduled orders, including clinic medications orders, diagnostic test orders, procedure orders and consult orders; where the start date of the order is 45 days before the date of the Encounter or 45 days after the date of theEncounter. The data comes from all [facility]. Test Date/Time Test Type Test Details Facility Name Jun 12, 2024 03:43 PM Consult Order [facility] [place] Jun 16, 2024 08:14 AM Consult Order [facility] OUTPT [facility] Social History: Smoking Status (Most current) and Tobacco Use (All prior to encounter date) This section includes the most current, and the historical, smoking and tobacco- related health factors from the [facility] facility where the Encounter took place. Current Smoking Status This section includes the most current smoking, or tobacco-related health factor, from the [place] facility where the Encounter took place. Date/Time Current Smoking Status Comment Facil ity Nov 25, 2023 01:00 PM VA-TOBACCO USER EVERY DAY [facility] Tobacco Use History This section includes a history of the smoking, or tobacco-related health factors, that were collected on or before the date of the Encounter. The data comes from the [place] facility where the Encounter took place. Date/Time Smoking Status/Tobacco Use Comment F acility Nov 25, 2023 01:00 PM VA-TOBACCO USE ADVICE [facility] Nov 25, 2023 01:00 PM VA-TOBACCO USE NUTRITIONAL SERVICES HOST NO [facility] Nov 25, 2023 01:00 [...] ALL of a patient's completed or amended [place] Advance and Rescinded Directives. The entries below indicate that a directive exists for the patient, but an actual copy is not included with this document. The data comes from all [place] facilities. Date Advance Directives Provider Source Jul 30, 2016 ADVANCE DIRECTIVE DISCUSSION DOUG CASH [facility] Radiology Reports: +/- 30 days of the [...] the Encounter. The data comes from all [place] treatment facilities. Date/Time Radiology Report Provider Source Jun 05, 2024 03:10 PM SPINE LUMBOSACRAL SERIES: YAJAIRA SMITH [id number] -1975 M Exm Date: JUN 05, 2024@15:10 Req Phys: TAMARA VALENCIA Loc: [facility] PACT 1 (Req'g Loc) [facility] [place], [place] Loc: [facility] Service: [facility] [place] [address] (Case [id number] COMPLETE)SPINE LUMBOSACRAL SERIES (RAD Detailed) CPT:76289 Reason for Study: pain Clinical History: Report Status: Verified Date Reported: JUN 08, 2024 Date Verified: JUN 08, 2024 Packer Inspector E-Sig: Report: PROCEDURE: SPINE LUMBOSACRAL SERIES CLINICAL [...] PANCHO HARRISON III, Staff Physician Verified by banjo repair person for PANCHO HARRISON III /PANCHO CARIAS III [facility] Encounter Notes: All associated encounter notes This section contains the clinical notes associated to the Encounter. Date/Time Encounter Note(s) Provider Source Jun 22, 2024 04:06 PM SOCIAL WORK NOTE: LOCAL TITLE: SWS PROGRESS NOTE STANDARD TITLE: SOCIAL WORK NOTE DATE OF NOTE: JUN 22, 2024@16:06 ENTRY DATE: JUN 22, 2024@16:06:35 AUTHOR: FRANKO BURDEN EXP COSIGNER: URGENCY: STATUS: COMPLETED SW contacted this pm by phone, , and provided information received from [place] [facility] [employer]LECTIONS LIBRARIAN regarding Hensel's interest in possible inpatient rehab admission. JAN explained to Hensel that he will need to attend PM[facility] appointment on 07/13/24 and discuss if this would be an option for him. JAN encouraged to contact skilled home health agency,[facility] [place],and request to set up appointment to begin home PT services which were previously recommended by PMRS MD. verbalized agreement and was unaware of other needs. Time: 4 minutes Diagnoses: Problem Related to unspecified Psychosocial Circumstances /es/ FRANKO BURDEN REVERSE UNIT OPERATOR Primary Care Brake Liner Signed: 06/22/2024 16:15 FRANKO BURDEN AR VANPH
--- OUTSIDE RECORDS SUMMARY | 2024-07-03 02:49 | XMS_ITS | Encounter Summary ---
Author Name Department of Veter[facility] Affairs ([place]) Organization [facility] [place] Address [address] [place] [address] Care Team Providers Care Supervisor Drawing Name Role Phone TAMARA VALENCIA Primary Care Provider Unavailab DONTA Sky Primary Care Provider Unavailab onel Insurance Providers: [...] section includes the information on record at OR for the Encounter. 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 Date/Time Primary/Secondary Diagnosis Diagnosis Name Provider Source Jul 03, 2024 02:55 PM PRIMARY halfway (current) use of opiate analgesic [facility] Jul 03, 2024 02:55 PM SECONDARY Alcohol abuse, uncomplicated [facility] Jul 03, 2024 02:55 PM SECONDARY Bipolar disorder, unspecified [facility] Jul 03, 2024 02:55 PM SECONDARY Major depressv disorder, recurrent severe w/o psych features [facility] Plan of Treatment: Future Appointments (+ 6 months) and Future Tests (+/- 45 days) The Plan of Treatment section includes [facility] care activities for the [facility] This section includes future appointments and future orders which are active, pending or scheduled. Future Appointments This section includes appointments that were scheduled to occur 6 months from the date of the Encounter, up to a maximum of 20 appointments. The data comes from all [facility]. Appointment Date/Time Appointment Type Appointme nt Facility Name Jul 13, 2024 11:30 AM AMBULATORY - [facility]AB MEDICIN [facility] Jul 13, 2024 01:00 PM AMBULATORY - REHAB MEDICIN [facility] August 10, 2024 11:00 AM AMBULATORY - REHAB MEDICIN [facility] August 10, 2024 11:05 AM AMBULATORY - RE[place]AB MEDIC[place] [facility] August 14, 2024 01:30 PM AMBULATORY - PSYCHIATRY [facility] Active, Pending, and Scheduled Orders This section includes a listing of several types of active, pending, and scheduled orders, including clinic medications orders, diagnostic test orders, procedure orders and consult orders; where the start date of the order is 45 days before the date of the Encounter or 45 days after the date of theEncounter. The data comes from all [facility]. Test Date/Time Test Type Test Details Facility Name Jun 12, 2024 03:43 PM Consult Order [facility] Cons [facility] [place] [facility] Jun 16, 2024 08:14 AM Consult Order PM[facility] OUT[facility] Advance Directives: All historical and current Section Date Range: From patient's date of to the date document was created. This section includes ALL of a patient's completed or amended VA Advance and Rescinded Directives. The entries below indicate that a directive exists for the patient, but an actual copy is not included with this document. The data comes from all OR facilities. Date Advance Directives Provider Source Jul 30, 2016 ADVANCE DIRECTIVE DISCUSSION DOUG CASH [facility] Radiology Reports: +/- 30 days of [...] the Encounter. The data comes from all [place] treatment facilities. Date/Time Radiology Report Provider Source Jun 05, 2024 03:10 PM SPINE LUMBOSACRAL SERIES: YAJAIRA SMITH [id number] M Exm Date: JUN 05, 2024@15:10 Req Phys: TAMARA VALENCIA Loc: [facility] PACT 1 (Req'g Loc) Img Loc: [facility] Service: [facility] [place] [address] (Case [id number] COMPLETE)SPINE LUMBOSACRAL SERIES (RAD Detailed) CPT:27301 Reason for Study: pain Clinical History: Report Status: Verified Date Reported: JUN 08, 2024 Date Verified: JUN 08, 2024 Loft Rigger E-Sig: Report: PROCEDURE: SPINE LUMBOSACRAL SERIES CLINICAL [...] PANCHO HARRISON III, Staff Physician Verified by cable installation technician for PANCHO HARRISON III /PANCHO CARIAS III [facility] Encounter Notes: All associated encounter notes This section contains the clinical notes associated to the Encounter. Date/Time Encounter Note(s) Provider Source Jul 03, 2024 07:49 AM SATP RISK ASSESSMENT SCREENING NOTE: LOCAL TITLE: CENTRALIZED DATA-BASED OPIOID RISK REVIEW STANDARD TITLE: SATP RISK ASSESSMENT SCREENING NOTE DATE OF NOTE: JUL 03, 2024@07:49 ENTRY DATE: JUL 03, 2024@07:49:24 AUTHOR: JUVENAL VALERAER: URGENCY: STATUS: COMPLETED OPIOID RISK REVIEW BY INTERDISCIPLINARY TEAM: CENTRALIZED REVIEW TO COVER VARIOUS ASPECTS OF OPIOID THERAPY This patient was flagged by our [employer] dashboard as high risk for suicide and/or overdose. Patient was reviewed with the following members of the pain team: Drs/APRNs/CARDIOLOGY TECHNICIAN Franklin Cueto, Harika Angeles, Anthony Stover, Jesús Isaacs, Irwin Lassiter, Silviano Vasquez, Tim Madrigal, Stacie Kumar, and this manual writer with the purpose of decreasing risk where able and to support any providers/prescribers if appropriate. Active Outpatient Medications (excluding Supplies): Active Outpatient Medications Status 1) CODEINE 30/ACETAMINOPHEN 300MG TAB TAKE 1 TABLET BY MOUTH ACTIVE EVERY 6 HOURS NEEDED FOR MODERATE TO SEVERE PAIN. VOUCHER - BYPASS LABEL, DO NOT MAIL. Indication: FOR PAIN 2) DOXEPIN 3MG TAB TAKE ONE TABLET BY MOUTH AT BEDTIME (NOTE ACTIVE DOSE CHANGE) Indication: FOR SLEEP 3) DRESSING,HONEY TOP GEL APPLY 1 SMALL AMOUNT TO AFFECTED AREA ACTIVE EVERY DAY Indication: FOR WOUND CARE 4) GABAPENTIN 300MG CAP TAKE ONE CAPSULE BY MOUTH TWICE A DAY ACTIVE FOR 15 DAYS 5) LISINOPRIL 20MG TAB TAKE ONE TABLET BY MOUTH EVERY DAY ACTIVE Indication: FOR HIGH BLOOD PRESSURE 6) METHOCARBAMOL 750MG TAB TAKE TWO TABLETS BY MOUTH THREE ACTIVE TIMES A DAY FOR 16 DAYS 7) METOPROLOL TARTRATE 25MG TAB TAKE ONE-HALF TABLET BY MOUTH ACTIVE TWICE A DAY Indication: FOR HIGH BLOOD PRESSURE 8) NALOXONE HCL 4MG/SPRAY SOLN NASAL SPRAY SPRAY 1 SPRAY IN ACTIVE NOSE NEEDED IF PERSON DOES NOT START BREATHING IN 2-3 MINUTES, GIVE SECOND DOSE. Indication: FOR OPIOID OVERDOSE 9) OXYCODONE 10MG/APAP 325MG TAB TAKE 1 TABLET BY MOUTH EVERY 4 ACTIVE TO 6 HOURS NEEDED FOR 16 DAYS FOR PAIN DO NOT EXCEED 4 TABLETS PER DAY 10) PREGABALIN 75MG ORAL CAP TAKE ONE CAPSULE BY MOUTH TWICE A ACTIVE DAY FOR 16 DAYS FOR NEUROPATHY 11) SUMATRIPTAN SUCCINATE 25MG TAB TAKE ONE TABLET BY MOUTH ACTIVE EVERY DAY NEEDED DIRECTED FOR MIGRAINE. IF NOT BETTER IN 2 HOURS MAY REPEAT DOSE TIMES 1. Indication: FOR MIGRAINE HEADACHE 12) VENLAFAXINE HCL 75MG 24HR SA CAP TAKE THREE CAPSULES BY ACTIVE MOUTH EVERY DAY Indication: FOR MOOD/ANXIETY Active Non-VA Medications Status 1) Non-VA ACETAMINOPHEN 250/ASA 250/CAFF 65MG TAB 2 TABLETS ACTIVE MOUTH NEEDED Indication: FOR MIGRAINE HEADACHE 13 Total Medications Allergies: LEXAPRO, METHADONE, MORPHINE, ATOMOXETINE 1. REVIEW CLINICAL INDICATION: 48 yo male recently prescribed course of oxycodone/acetaminophen. 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 Surgery completed at [facility] 06/11/24. Seen by Sangeeta Taveras MD, at [facility] for f/u 06/23, noted also following for chronic low back pain. [facility] notes report multiple ED visits between 06/11 surgery date and 06/23 f/u, [place] mentioning only thing that helped as IV hydromorphone. Ordered 16-day course of oxycodone and initiated on pregabalin for neuropathic pain. Planned 16-day f/u with plan to taper opioids. Controlled Substances: - 06/24/2024 oxycodone/acetaminophen 10/325mg #64 for 16 days - 06/24/2024 pregabalin 75mg #32 for 16 days 2. REVIEW PSYCHIATRIC CONDITIONS h/o polysubstance use disorder h/o AUD, denies since October 2023 MDD insomnia bipolar disorder tobacco use 3. 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 DRUG INTERACTIONS: - doxepin + gabapnetin + pregabalin + methocarbamol + oxycodone = increased risk for BUTCHERETTE depression - gabapentin + pregabalin = duplicate therapy 5. OPIOID RISK REVIEW AND RISK MITIGATION PATIENT'S CURRENT RISK LEVEL AND CURRENT HIGH RISK FLAGS ===== STORM Model Risk Estimates Risk of suicide-related event or overdose in the next year: Elevated Risk% (Very High - Active Opioid Rx) Risk of suicide-related event, overdose, fall or accident in the next 3 years: Elevated Risk% (Very High - Active Opioid Rx) RIOSORD Risk Class: 2 RIOSORD Score: 30 6. RISK MITIGATION STRATEGIES: Risk Mitigation Strategies: [X] MEDD < 90 (30 Day Avg) 60 [X] Naloxone Kit (365 Days) 03/03/2024 Filled [X] Informed Consent for Long-Term Opioid Therapy 01/23/2014 [X] Timely Follow-up (90 Days) 06/22/2024 [ ] Drug Screen (90 Days) 11/26/2023 [X] Psychosocial Assessment (365 Days) 11/28/2023 [X] Psychosocial Tx (365 Days) 03/03/2024 [ ] Bowel Regimen (365 Days) [X] PDMP (90 Days) 06/05/2024 [ ] Data-based Risk Review (365 Days) [X] Suicide Safety Plan (365 Days) 11/12/2023 Completed [X] Active YAHIR Tx (90 Days) 06/05/2024 [ ] Medication for Opioid Use Disorder [ ] Mandated Risk Mitigations Met + NALOXONE KIT 02/27/2024 - INFORMED CONSENT N/A + UDS 11/26/2023 aberrantly positive for barbiturates + PDMP 06/05/2024 ASSESSMENT/RECOMMENDATIONS FROM THE OPIOID RISK REVIEW TEAM: 1. Agree with short-course of opioids for acute post-op pain. Would monitor use closely in wtih recent AUD and h/o polysubstance use. Concerning behaviors including multiple non-VA ED visits and requesting hydromorphone. Would avoid long-term prescribing of opioid for chronic pain, reasonable to use short-term for acute pain. 2. Agree with risk mitigation strategies above. May consider 8mg Kloxxado (naloxone) for patient w/ h/o YAHIR. 3. Consider Pharmacy Pain E-Consult if assistance with non-opioid regimen needed for chronic pain. Would defer to [facility] team for mgmt of acute post-op pain. 4. Follow-up with Pain Board as needed for ongoing risk mitigation. Time Spent: 30 minutes /es/ JUVENAL VALERA CLINICAL PHARMACY PRACTITIONER - PAIN MANAGEMENT Signed: 07/03/2024 14:56 Receipt Acknowledged By: 07/03/2024 14:59 /es/ Franklin Cueto, PharmD, [facility] Clinical Pharmacy Practitioner, ext [phone] 07/03/2024 16:03 /es/ HARIKA ANGELES PM&RS Staff Physician 07/06/2024 07:29 /es/ TAMARA VALENCIA ON AIR ANNOUNCER 07/15/2024 15:17 /es/ ANTHONY STOVER M.D 07/03/2024 17:19 /es/ SILVIANO VASQUEZ Ph.D. 07/06/2024 08:26 /es/ Luke Looney M.D. [facility] Staff Psychiatrist JUVENAL VALERA [facility]
--- OUTSIDE RECORDS SUMMARY | 2024-07-13 06:05 | XMS_ITS | Encounter Summary ---
Author Name [facility] [place] Organization [place] Address [address] [place] [address] Care Team Providers Care Hospice Care Consultant Name Role Phone TAMARA VALENCIA Primary Care [...] Type Encounter Description Reason Pro vider Source Jul 13, 2024 11:05 AM Outpatient Encounter [facility] Encounter Template Text not used by [place] Plan of Treatment: Future Appointments (+ 6 months) and Future Tests (+/- 45 days) The Plan of Treatment section includes future care activities for the patient from all [place] treatmentfacilities. This section includes future appointments and future orders which are active, pending or scheduled. Future Appointments This section includes appointments that were scheduled to occur 6 months from the date of the Encounter, up to a maximum of 20 appointments. The data comes from all [place] treatment facilities. Appointment Date/Time Appointment Type Appointme nt Facility Name August 10, 2024 11:00 AM [facility] August 10, 2024 11:05 AM [facility]BULATORY - [facility] August 14, 2024 01:30 PM AMBULATORY - PSYCHIATRY [facility] Active, Pending, and Scheduled Orders [...] Order [facility] Cons [facility] Jun 16, 2024 08:14 AM Consult Order PM[facility] OUTPT [facility] Social History: Smoking Status (Most current) and Tobacco Use (All prior to encounter date) This section includes the most current, and the historical, smoking and tobacco- related health factors from the [place] facility where the Encounter took place. Current Smoking Status This section includes the most current smoking, or tobacco-related health factor, from the [place] facility where the Encounter took place. Date/Time Current Smoking Status Comment Facil ity Nov 25, 2023 01:00 PM VA-TOBACCO USE WI 30 MIN OF WAKEUP [facility] Tobacco Use History This section [...] Nov 25, 2023 01:00 PM VA-TOBACCO USE CHOKE SETTER NO GLADE [facility] Nov 25, 2023 01:00 PM VA-TOBACCO USE [...] 30, 2016 ADVANCE DIRECTIVE DISCUSSION DOUG [facility] Encounter Notes: All associated encounter notes This section contains the clinical notes associated to the Encounter. Date/Time Encounter Note(s) Provider Source Jul 13, 2024 11:19 AM ADMINISTRATIVE NOT E: LOCAL TITLE: NO SHOW STANDARD TITLE: ADMINISTRATIVE NOTE DATE OF NOTE: JUL 13, 2024@11:19 ENTRY DATE: JUL 13, 2024@11:19:37 AUTHOR: ELAINA OWENS COSIGNER: URGENCY: STATUS: COMPLETED Select one: YAJAIRA SMITH, did not keep the scheduled [facility] appointment. After review of this chart: -Schedule follow-up within (timeframe): Rebook in: [X] New patient clinic [ ] New patient clinic with the previous lab order. [ ] Follow-up clinic [ ] Follow-up clinic with the previous lab order. /ben/ ELAINA OWENS STAFF PHYSICIAN Signed: 07/13/2024 11:20 ELAINA OWENS [place]
--- OUTSIDE RECORDS SUMMARY | 2024-07-13 08:00 | XMS_ITS | Encounter Summary ---
Author Name [facility] [place] [facility] [place] [facility] [place] Address [address] [place] [address] Care Team Providers Care Telephone Operators Supervisor Name Role Phone DONTA BAIRES Primary Care [...] section includes the information on record at [place] for the Encounter. Date/Time Encounter Type Encounter Description Reason Provider Source Jul 13, 2024 01:00 PM WHEELCHAIR MNGMENT TRAINING PHYSICAL THERAPY ICD-10-CM Z89.9 Acquired absence of limb, unspecified JARED DHALIWAL ETT R IHE Encounter Template Text not used by [place] Assessments - Encounter Diagnoses This section includes the primary and secondary diagnoses documented for the Encounter. Date/Time Primary/Secondary Diagnosis Diagnosis Name Provider Source Jul 13, 2024 01:51 PM PRIMARY Acquired absence of limb, unspecified YUVAL DHALIWAL TT [facility] Plan of Treatment: Future Appointments (+ [...] 20 appointments. The data comes from all [facility] facilities. Appointment Date/Time Appointment Type Appointme nt Facility Name August 10, 2024 11:00 AM AMBULATORY - REHAB MEDICIN E [facility] August 10, 2024 11:05 AM AMBULATORY - REHAB MEDICIN E [facility] August 14, 2024 01:30 PM AMBULATORY - PSYCHIATRY MO [facility] Active, Pending, and Scheduled Orders This section includes a listing of several types of active, pending, and scheduled orders, including clinic medications orders, diagnostic test orders, procedure orders and consult orders; where the start date of the order is 45 days before the date of the Encounter or 45 days after the date of theEncounter. The data comes from all [facility]. Test Date/Time Test Type Test Details Facility Name Jun 12, 2024 03:43 PM Consult Order [facility] [place] Supervisor's [facility] VINCE IRINA Jun 16, 2024 08:14 AM Consult Order [facility] OUTPT Cons [facility] Social History: Smoking Status (Most current) and Tobacco Use (All prior to encounter date) This section includes the most current, and the historical, smoking and tobacco- related health factors from the [place] facility where the Encounter took place. Current Smoking Status This section includes the most current smoking, or tobacco-related health factor, from the [place] facility where the Encounter took place. Date/Time Current Smoking Status Comment Bettye ity Jun 05, 2024 02:00 PM VA-TOBACCO USE FOR DIANA CIGARETTES [facility] Tobacco Use History This section includes a history of the smoking, or tobacco-related health factors, that were collected on or before the date of the Encounter. The data comes from the [place] facility where the Encounter took place. Date/Time Smoking Status/Tobacco Use Comment F acility Jun 05, 2024 02:00 PM VA-TOBACCO USE ARY DAY SMOKELESS [facility] Jun 05, 2024 02:00 PM VA-TOBACCO USE FOR DIANA CIGARETTES [facility] Advance Directives: All historical and current Section Date Range: From patient's date of to the date document was created. This section includes ALL of a patient's completed or amended [place] Advance and Rescinded Directives. The entries below indicate that a directive exists for the patient, but an actual copy is not included with this document. The data comes from all [place] facilities. Date Advance Directives Provider Source Jul 30, 2016 ADVANCE DIRECTIVE DISCUSSION DOUG CASH [facility] Encounter Notes: All associated encounter notes This section contains the clinical notes associated to the Encounter. Date/Time Encounter Note(s) Provider Source Jul 13, 2024 01:20 PM PHYSICAL THERAPY N OTE: LOCAL TITLE: PM&RS/PT STANDARD TITLE: PHYSICAL THERAPY NOTE DATE OF NOTE: JUL 13, 2024@13:20 ENTRY DATE: JUL 13, 2024@13:21:02 AUTHOR: CLARIBEL DHALIWAL COSIGNER: URGENCY: STATUS: COMPLETED PHYSICAL MEDICINE & REHABILITATION SERVICE MANUAL WHEELCHAIR EDUCATION FOR FITTING APPOINTMENT DIAGNOSIS: Acquired Absence of Limb, unspecified(ICD-10-CM Z89.9) PROBLEM: needs specialty wheelchair due to 's size PRECAUTIONS: falls REASONS FOR REFERRAL: wheelchair measurements for specialty manual wheelchair and cushion REFERRING PROVIDER: TAMARA VALENCIA Initial Treatment Date: 06/15/2024 Date of onset: 06/11/2024 Patient goals: receive wheelchair and improve mobility ACTIVE PATIENT ID VERIFICATION Chief complaint: immobility Total treatment time: 30 Minutes: wheelchair management [id number] x 2 (30 minutes) Pain: TREATMENT: was seen in [facility] wheelchair measurement clinic previously and a specialty wheelchair and cushion were ordered. Items were recently received by [facility] and PM[facility]. was scheduled for [facility] appt for wheelchair fitting, education and issue. 's wheelchair was adjusted for his size. This included adjustments to the legrests, armrests, seatbelt and back. Residual limb support was also installed and adjusted to promote full Rt knee extension as pt appears to lack ~5 degrees from full Rt knee extension. EDUCATION: Who: and mother Barriers: Method: verbal instructions; demo/return demo Receptive to learning: Needs: wheelchair operation, features and safety including: removing and adding legrests and armrests; adjustment of tension adjustable backrest; folding/unfolding wheelchair; use of seat belt and anti-tippers during operation; removing and adding wheels for easier transport and storage; easy loading wheelchair into vehicle; use of handbrakes; wheelchair propulsion techniques and efficiency; transfer safety to and from wheelchair, use, care and positioning of seat cushion; contact Pro[facility] if problems/concerns with wheelchair and/or cushion arise Evaluation: 1. Patient will fit appropriately into manual wheelchair by D/C to allow pt mobility in community and/or home and prevent skin breakdown. - MET PLAN: D/C today. Goals met. Wheelchair and cushion issued to upon clinic exit. No further plans for care at this time. Pt is issued [employer] Mode C2 SN: [id number] /es/ CLARIBEL DHALIWAL Physical Therapist Signed: 07/13/2024 13:51 CLARIBEL DHALIWAL [facility]
--- OUTSIDE RECORDS SUMMARY | 2024-08-10 06:00 | XMS_ITS | Encounter Summary ---
Author Name [facility] Address [address] [place] [address] Care Team Providers Care Building Service Worker Name Role Phone DONTA BAIRES Primary Care [...] section includes the information on record at NH for the Encounter. Date/Time Encounter Type Encounter Description Reason Provider Source August 10, 2024 11:00 AM TELEHEALTH FACILITY [facility] ICD-10-CM Z89.511 Acquired absence of right leg below knee SRINIVAS HARRIS [facility] Encounter Template Text not used by [place] Assessments - Encounter Diagnoses This section includes the primary and secondary diagnoses documented for the Encounter. Date/Time Primary/Secondary Diagnosis Diagnosis Name Provider Source August 12, 2024 07:14 AM PRIMARY Acquired absence of right leg below knee RIDGE HARRIS [facility] Plan of Treatment: Future Appointments (+ [...] 20 appointments. The data comes from all [place] treatment facilities. Appointment Date/Time Appointment Type Appointme nt Facility Name August 12, 2024 01:00 PM AMBULATORY - NONE [facility] August 14, 2024 01:30 PM AMBULATORY - [place]IATRY [facility] Sep 08, 2024 09:00 AM AMBULATORY - [facility] E [facility] Oct 08, 2024 10:00 AM AMBULATORY - REHAB MEDICIN E [facility] Oct 12, 2024 02:00 PM AMBULATORY - PSYCHIATRY NO [facility] Oct 20, 2024 10:30 AM AMBULATORY - REHAB MEDICIN E [facility] Nov 13, 2024 01:00 PM AMBULATORY - PS[facility]CHIATRY [facility] Feb 08, 2025 11:00 AM AMBULATORY - REHAB MEDICIN E [facility] Feb 08, 2025 11:05 AM AMBULATORY - REHAB MEDICIN E [place] Social History: Smoking Status (Most current) and Tobacco Use (All prior to encounter date) This section includes the most current, and the historical, smoking and tobacco- related health factors from the [place] facility where the Encounter took place. Current Smoking Status This section includes the most current smoking, or tobacco-related health factor, from the [place] facility where the Encounter took place. Date/Time Current Smoking Status Comment Bettye ity Jun 05, 2024 02:00 PM VA-TOBACCO USE FOR DIANA CIGARETTES [facility] Tobacco Use History This section includes a history of the smoking, or tobacco-related health factors, that were collected on or before the date of the Encounter. The data comes from the [place] facility where the Encounter took place. Date/Time Smoking Status/Tobacco Use Comment F acility Jun 05, 2024 02:00 PM VA-TOBACCO USE [facility] Jun 05, 2024 02:00 PM VA-TOBACCO USE FOR DIANA CIGARETTES [facility] Advance Directives: All historical and current Section Date Range: From patient's date of to the date document was created. This section includes ALL of a patient's completed or amended [place] Advance and Rescinded Directives. The entries below indicate that a directive exists for the patient, but an actual copy is not included with this document. The data comes from all [place] facilities. Date Advance Directives Provider Source Jul 30, 2016 ADVANCE DIRECTIVE DISCUSSION DOUG CASH [facility] Encounter Notes: All associated encounter notes This section contains the clinical notes associated to the Encounter. Date/Time Encounter Note(s) Provider Source August 10, 2024 11:00 AM NURSING TELEHEALTH NOTE: LOCAL TITLE: CLINICAL VIDEO TELEHEALTH (CVT) NURSE NOTE STANDARD TITLE: NURSING TELEHEALTH NOTE DATE OF NOTE: AUGUST 10, 2024@11:00 ENTRY DATE: AUGUST 10, 2024@13:55:37 AUTHOR: SILVIANO HARRIS EXP COSIGNER: URGENCY: STATUS: COMPLETED TELEHEALTH SERVICE: PM&RS SUBJECTIVE: [place] here for amputee clinic. He was identified by full name and date of . Pt was pleasant and cooperative. Seated in good viewing by provider. Introductions were made. Pt consented to telehealth visit. This parts data writer stayed with pt to assist provider during visit. Initial Visit: Yes If YES, was verbal consent obtained by the provider? Yes [place] arrived for virtual telehealth session and was oriented to equipment and telehealth processes. Accompanied By: Other: mother On Arrival: Wheelchair /es/ SILVIANO HARRIS PHYSICAL THERAPIST Signed: 08/10/2024 13:56 Receipt Acknowledged By: 08/10/2024 16:52 /ben/ ELAINA OWENS STAFF PHYSICIAN SILVIANO HARRIS [facility]
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
--- OUTSIDE RECORDS SUMMARY | 2024-09-08 04:00 | XMS_ITS | Encounter Summary ---
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 PharmD, [facility] Clinical Pharmacy Practitioner, TelePain Signed: 09/07/2024 15:12 JOHANA LOO [facility]
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
--- OUTSIDE RECORDS SUMMARY | 2024-10-12 10:25 | XMS_ITS | Encounter Summary ---
Author Name [facility] [place] Address [address] [place] [address] Care Team Providers Care Director Inpatient Headache Program Name Role Phone TAMARA VALENCIA Primary Care [...] section includes the information on record at [place] for the Encounter. Date/Time Encounter Type Encounter Description Reason Provider Source Oct 12, 2024 03:25 PM Outpatient Encounter [facility] Encounter Template Text not used by [place] Plan of Treatment: Future Appointments (+ 6 months) and Future Tests (+/- 45 days) The Plan of Treatment section includes future care activities for the patient from all [place] treatmentfacilities. This section includes future appointments and future orders which are active, pending or scheduled. Future Appointments This section includes appointments that were scheduled to occur 6 months from the date of the Encounter, up to a maximum of 20 appointments. The data comes from all [place] treatment facilities. Appointment Date/Time Appointment Type Appointme nt Facility Name Oct 20, 2024 10:30 AM AMBULATORY - [facility] Nov 13, 2024 01:00 PM AMBULATORY - PSYCHIATRY [facility] Feb 08, 2025 11:00 AM AMBULATORY - REHAB MEDICIN E [facility] Feb 08, 2025 11:05 AM AMBULATORY - REHAB MEDICIN E [facility] Feb 25, 2025 09:00 AM AMBULATORY - NONE [facility] Advance Directives: All historical and current Section Date Range: From patient's date of to the date document was created. This section includes ALL of a patient's completed or amended [place] Advance and Rescinded Directives. The entries below indicate that a directive exists for the patient, but an actual copy is not included with this document. The data comes from all [place] facilities. Date Advance Directives Provider Source Jul 30, 2016 ADVANCE DIRECTIVE DISCUSSION DOUG [facility] Encounter Notes: All associated encounter notes This section contains the clinical notes associated to the Encounter. Date/Time Encounter Note(s) Provider Source Oct 12, 2024 03:25 PM MENTAL HEALTH DIAG NOSTIC STUDY NOTE: LOCAL TITLE: MENTAL HEALTH DIAGNOSTIC STUDY NOTE STANDARD TITLE: MENTAL HEALTH DIAGNOSTIC STUDY NOTE DATE OF NOTE: OCT 12, 2024@15:25:54 ENTRY DATE: OCT 12, 2024@15:25:54 AUTHOR: FE GIPSON EXP COSIGNER: URGENCY: STATUS: COMPLETED Naylor Suicide Severity Rating Scale (C-SSRS) Date Given: 10/12/2024 Clinician: Fe Gipson Location: [facility] Lip 2 Vvc : Yajaira Martin SSN: [id number] : [birth year] ([birth year]) Gender: Male Suicidal Ideation in Past Month: None endorsed Method/Plan/Intent in Past Month: No method, no specific plan, and no intent Suicidal Behavior: No Past Suicidal Behavior Reported QUAN INDICATORS: Questions and Answers: 1. Over the past month, have you wished you were or wished you could go to sleep and not wake up? No 2. Over the past month, have you had any actual thoughts of killing yourself? No 3. Over the past month, have you been thinking about how you might do this? Not asked (due to responses to other questions) 4. Over the past month, have you had these thoughts and had some intention of acting on them? Not asked (due to responses to other questions) 5. Over the past month, have you started to work out or worked out the details of how to kill yourself? Not asked (due to responses to other questions) 6. If yes, at any time in the past month did you intend to carry out this plan? Not asked (due to responses to other questions) 7. In your lifetime, have you ever done anything, started to do anything, or prepared to do anything to end your life (for example, collected pills, obtained a gun, gave away valuables, went to the roof but didn't jump)? No 8. If yes, was this within the past 3 months? Not asked (due to responses to other questions) Naylor-Suicide Severity Rating Scale (C-SSRS) 2016 [facility]. Scale may be reproduced without permission. Information contained in this note is based on a self-report assessment and is not sufficient to use alone for diagnostic purposes. Assessment results should be verified for accuracy and used in conjunction with other diagnostic activities. /ben/ FE GIPSON, PHD CLINICAL PSYCHOLOGIST Signed: 10/12/2024 15:26 FE GIPSON ERI[facility]INCE
--- OUTSIDE RECORDS SUMMARY | 2024-10-14 19:28 | XMS_ITS | Continuity of Care Document ---
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 Blood older than 8 hours, cells and morphology may be affected. Ordering Provider: HAYDE VALENCIA Report Released Date/Time: Feb 25, 2024 03:04 PM Reporting Lab: [facility] [address] [address] Performing Lab: [facility] [address] [address] [facility] BMP+ALBUM IN SODIUM [MOLES/VOLU ME] IN SERUM OR PLASMA 137 mmol/L 135 - 145 02/25 Specimen Type: PLASMA Comment: Blood older than 8 hours, cells and morphology may be affected. Ordering Provider: HAYDE VALENCIA Report Released Date/Time: Feb 25, 2024 03:04 PM Reporting Lab: [address] [phone] Performing Lab: [facility] [address] [place] [phone] [facility] BMP+ALBUM IN POTASSIUM [MOLES/VOLU ME] IN SERUM OR PLASMA 4.7 mmol/L 3.5 - 5.1 02/25 Specimen Type: PLASMA Comment: Blood older than 8 hours, cells and morphology may be affected. Ordering Provider: HAYDE VALENCIA Report Released Date/Time: Feb 25, 2024 03:04 PM Reporting Lab: [address] [phone] Performing Lab: [address] [address] [facility] BMP+ALBUM IN CHLORIDE [MOLES/VOLU ME] IN SERUM OR PLASMA 106 mmol/L 100 - 109 02/25 Specimen Type: PLASMA Comment: Blood older than 8 hours, cells and morphology may be affected. Ordering Provider: HAYDE VALENCIA Report Released Date/Time: Feb 25, 2024 03:04 PM Reporting Lab: [address] [address] Performing Lab: [address] [phone] [facility] BMP+ALBUM IN CARBON DIOXIDE, TOTAL [MOLES/VOLU ME] IN SERUM OR PLASMA 25 mmol/L 22 - 29 02/25 Specimen Type: PLASMA Comment: Blood older than 8 hours, cells and morphology may be affected. Ordering Provider: HAYDE VALENCIA Report Released Date/Time: Feb 25, 2024 03:04 PM Reporting Lab: [address] [address] Performing Lab: [address] [phone] [facility] BMP+ALBUM IN ALBUMIN [MASS/VOLUM E] IN SERUM OR PLASMA 4.0 g/dL 3.4 - 5 02/25 Specimen Type: PLASMA Comment: Blood older than 8 hours, cells and morphology may be affected. Ordering Provider: HAYDE VALENCIA Report Released Date/Time: Feb 25, 2024 03:04 PM Reporting Lab: [address] [phone] Performing Lab: [place] [phone] [facility] BMP+ALBUM IN CALCIUM [MASS/VOLUM E] IN SERUM OR PLASMA 9.0 mg/dL 8.3 - 10.3 02/25 Specimen Type: PLASMA Comment: Blood older than 8 hours, cells and morphology may be affected. Ordering Provider: HAYDE VALENCIA Report Released Date/Time: Feb 25, 2024 03:04 PM Reporting Lab: [address] [address] Performing Lab: [place] [phone] [facility] BMP+ALBUM IN UREA NITROGEN [MASS/VOLUM E] IN SERUM OR PLASMA 16 mg/dL 5.0 - 20.0 02/25 Specimen Type: PLASMA Comment: Blood older than 8 hours, cells and morphology may be affected. Ordering Provider: HAYDE VALENCIA Report Released Date/Time: Feb 25, 2024 03:04 PM Reporting Lab: [address] [phone] Performing Lab: [place] [phone] [facility] BMP+ALBUM IN GLOMERULAR FILTRATION RATE/1.73 SQ M.PREDICTED [VOLUME RATE/AREA] IN SERUM, PLASMA OR BLOOD BY CREATININE- BASED FORMULA (CKD-EPI 2020) >90 90 02/25 Specimen Type: PLASMA Comment: Blood older than 8 hours, cells and morphology may be affected. Ordering Provider: HAYDE VALECNIA Report Released Date/Time: Feb 25, 2024 03:04 PM Reporting Lab: [address] [phone] Performing Lab: [facility] [address] [address] [facility] TSH THYROTROPIN [UNITS/VOLU ME] IN SERUM OR PLASMA 1.19 u[IU]/ mL 0.34 - 5.6 02/25 Specimen Type: PLASMA No comment entered. Ordering Provider: HAYDE VALENCIA Report Released Date/Time: Feb 25, 2024 03:04 PM Reporting Lab: [place] [phone] Performing Lab: [place] [phone] LIPID PANEL CHOLESTEROL [MASS/VOLUM E] IN SERUM OR PLASMA 155 mg/dL 135 - 200 02/25 Specimen Type: PLASMA Comment: Blood older than 8 hours, cells and morphology may be affected. Ordering Provider: HAYDE VALENCIA Report Released Date/Time: Feb 25, 2024 03:04 PM Reporting Lab: [address] [address] Performing Lab: [place] [phone] LIPID PANEL TRIGLYCERID E [MASS/VOLUM E] IN SERUM OR PLASMA 111 mg/dL 30 - 200 02/25 Specimen Type: PLASMA Comment: Blood older than 8 hours, cells and morphology may be affected. Ordering Provider: HAYDE VALENCIA Report Released Date/Time: Feb 25, 2024 03:04 PM Reporting Lab: [address] [phone] Performing Lab: [place] [phone] [facility] LIPID PANEL CHOLESTEROL IN HDL [MASS/VOLUM E] IN SERUM OR PLASMA 39 mg/dL 30 - 70 02/25 Specimen Type: PLASMA Comment: Blood older than 8 hours, cells and morphology may be affected. Ordering Provider: HAYDE VALENCIA Report Released Date/Time: Feb 25, 2024 03:04 PM Reporting Lab: [address] [phone] Performing Lab: [address] [phone] [place] [address] LIPID PANEL CHOLESTEROL IN LDL [MASS/VOLUM E] IN SERUM OR PLASMA BY CALCULATION 94 mg/dL 0 - 100 02/25 Specimen Type: PLASMA Comment: Blood older than 8 hours, cells and morphology may be affected. Ordering Provider: HAYDE VALENCIA Report Released Date/Time: Feb 25, 2024 03:04 PM Reporting Lab: [address] [phone] Performing Lab: [address] [phone] [facility] URINE ALBUMIN CREATININ E PANEL CREATININE [MASS/VOLUM E] IN URINE 190.10 mg/dL 02/25 Specimen Type: URINE Comment: Unable to calculate Urine Albumin/Cre at Ratio. Total Urine Albumin is below linearity of assay. Ordering Provider: HAYDE VALENCIA Report Released Date/Time: Feb 25, 2024 03:04 PM Reporting Lab: [address] [phone] Performing Lab: [address] [phone] [facility] URINE ALBUMIN CREATININ E PANEL ALBUMIN [MASS/VOLUM E] IN URINE <0.5mg /dL 0 - 4.9 02/25 L Specimen Type: URINE Comment: Unable to calculate Urine Albumin/Cre at Ratio. Total Urine Albumin is below linearity of assay. Ordering Provider: HAYDE VALENCIA Report Released Date/Time: Feb 25, 2024 03:04 PM Reporting Lab: [address] [phone] Performing Lab: [address] [address] [facility] URINE ALBUMIN CREATININ E PANEL ALBUMIN/CRE ATININE [MASS RATIO] IN URINE commen tug/mg 0 - 30 02/25 Specimen Type: URINE Comment: Unable to calculate Urine Albumin/Cre at Ratio. Total Urine Albumin is below linearity of assay. Ordering Provider: HAYDE VALENCIA Report Released Date/Time: Feb 25, 2024 03:04 PM Reporting Lab: [address] [phone] Performing Lab: [address] [phone] [facility] CBC WITH DIFFERENT IAL LEUKOCYTES [#/VOLUME] IN BLOOD BY AUTOMATED COUNT 4.8 10*3/u L 3.6 - 10.0 02/25 Specimen Type: BLOOD Comment: Blood older than 8 hours, cells and morphology may be affected. Ordering Provider: HAYDE VALENCIA Report Released Date/Time: Feb 25, 2024 03:04 PM Reporting Lab: [place] [address] Performing Lab: [address] CBC WITH DIFFERENT IAL ERYTHROCYTE S [#/VOLUME] IN BLOOD BY AUTOMATED COUNT 4.65 10*6/u L 4.0 - 6.0 02/25 Specimen Type: BLOOD Comment: Blood older than 8 hours, cells and morphology may be affected. Ordering Provider: HAYDE VALENCIA Report Released Date/Time: Feb 25, 2024 03:04 PM Reporting Lab: [place] [address] Performing Lab: [address] CBC WITH DIFFERENT IAL HEMOGLOBIN [MASS/VOLUM E] IN BLOOD 13.6 g/dL 13.5 - 18.0 02/25 Specimen Type: BLOOD Comment: Blood older than 8 hours, cells and morphology may be affected. Ordering Provider: HAYDE VALENCIA Report Released Date/Time: Feb 25, 2024 03:04 PM Reporting Lab: [place] [address] Performing Lab: [address] CBC WITH DIFFERENT IAL HEMATOCRIT [VOLUME FRACTION] OF BLOOD BY AUTOMATED COUNT 41.2 40.0 - 54.0 02/25 Specimen Type: BLOOD Comment: Blood older than 8 hours, cells and morphology may be affected. Ordering Provider: HAYDE VALENCIA Report Released Date/Time: Feb 25, 2024 03:04 PM Reporting Lab: [address] Performing Lab: [address] CBC WITH DIFFERENT IAL MCV [ENTITIC VOLUME] BY AUTOMATED COUNT 88.7 fL 80.0 - 94.0 02/25 Specimen Type: BLOOD Comment: Blood older than 8 hours, cells and morphology may be affected. Ordering Provider: HAYDE VALENCIA Report Released Date/Time: Feb 25, 2024 03:04 PM Reporting Lab: [address] Performing Lab: [address] CBC WITH DIFFERENT IAL MCH [ENTITIC MASS] BY AUTOMATED COUNT 29.2 pg 27 - 33 02/25 Specimen Type: BLOOD Comment: Blood older than 8 hours, cells and morphology may be affected. Ordering Provider: HAYDE VALENCIA Report Released Date/Time: Feb 25, 2024 03:04 PM Reporting Lab: [place] [phone] Performing Lab: [address] CBC WITH DIFFERENT IAL MCHC [MASS/VOLUM E] BY AUTOMATED COUNT 32.9 g/dL 32.0 - 36.0 02/25 Specimen Type: BLOOD Comment: Blood older than 8 hours, cells and morphology may be affected. Ordering Provider: HAYDE VALENCIA Report Released Date/Time: Feb 25, 2024 03:04 PM Reporting Lab: [address] Performing Lab: [address] CBC WITH DIFFERENT IAL PLATELETS [#/VOLUME] IN BLOOD BY AUTOMATED COUNT 239 10*3/u L 150.0 - 450.0 02/25 Specimen Type: BLOOD Comment: Blood older than 8 hours, cells and morphology may be affected. Ordering Provider: HAYDE VALENCIA Report Released Date/Time: Feb 25, 2024 03:04 PM Reporting Lab: [place] [phone] Performing Lab: [address] CBC WITH DIFFERENT IAL PLATELET MEAN VOLUME [ENTITIC VOLUME] IN BLOOD BY AUTOMATED COUNT 8.2 fL 7.4 - 10.4 02/25 Specimen Type: BLOOD Comment: Blood older than 8 hours, cells and morphology may be affected. Ordering Provider: HAYDE VALENCIA Report Released Date/Time: Feb 25, 2024 03:04 PM Reporting Lab: [place] [phone] Performing Lab: [address] CBC WITH DIFFERENT IAL ERYTHROCYTE DISTRIBUTIO N WIDTH [RATIO] BY AUTOMATED COUNT 13.8 11.5 - 14.5 02/25 Specimen Type: BLOOD Comment: Blood older than 8 hours, cells and morphology may be affected. Ordering Provider: HAYDE VALENCIA Report Released Date/Time: Feb 25, 2024 03:04 PM Reporting Lab: [place] [phone] Performing Lab: [address] CBC WITH DIFFERENT IAL MONOCYTES/1 00 LEUKOCYTES IN BLOOD BY AUTOMATED COUNT 10.2 02/25 Specimen Type: BLOOD Comment: Blood older than 8 hours, cells and morphology may be affected. Ordering Provider: HAYDE VALENCIA Report Released Date/Time: Feb 25, 2024 03:04 PM Reporting Lab: [place] [phone] Performing Lab: [address] CBC WITH DIFFERENT IAL LYMPHOCYTES [#/VOLUME] IN BLOOD BY AUTOMATED COUNT 1.0 10*3/u L 1.0 - 4.3 02/25 Specimen Type: BLOOD Comment: Blood older than 8 hours, cells and morphology may be affected. Ordering Provider: HAYDE VALENCIA Report Released Date/Time: Feb 25, 2024 03:04 PM Reporting Lab: [place] [phone] Performing Lab: [address] CBC WITH DIFFERENT IAL MONOCYTES [#/VOLUME] IN BLOOD BY AUTOMATED COUNT 0.5 10*3/u L 0.3 - 1.0 11/20 /2024 Specimen Type: BLOOD Comment: Blood older than 8 hours, cells and morphology may be affected. Ordering Provider: HAYDE VALENCIA Report Released Date/Time: Feb 25, 2024 03:04 PM Reporting Lab: [address] Performing Lab: [address] CBC WITH DIFFERENT IAL LYMPHOCYTES /100 LEUKOCYTES IN BLOOD BY AUTOMATED COUNT 20.1 02/25 Specimen Type: BLOOD Comment: Blood older than 8 hours, cells and morphology may be affected. Ordering Provider: HAYDE VALENCIA Report Released Date/Time: Feb 25, 2024 03:04 PM Reporting Lab: [place] [address] Performing Lab: [address] CBC WITH DIFFERENT IAL NEUTROPHILS /100 LEUKOCYTES IN BLOOD BY AUTOMATED COUNT 65.3 02/25 Specimen Type: BLOOD Comment: Blood older than 8 hours, cells and morphology may be affected. Ordering Provider: HAYDE VALENCIA Report Released Date/Time: Feb 25, 2024 03:04 PM Reporting Lab: [place] [address] Performing Lab: [address] CBC WITH DIFFERENT IAL NEUTROPHILS [#/VOLUME] IN BLOOD BY AUTOMATED COUNT 3.1 10*3/u L 2.4 - 7.6 02/25 Specimen Type: BLOOD Comment: Blood older than 8 hours, cells and morphology may be affected. Ordering Provider: HAYDE VALENCIA Report Released Date/Time: Feb 25, 2024 03:04 PM Reporting Lab: [place] [address] Performing Lab: [address] CBC WITH DIFFERENT IAL EOSINOPHILS [#/VOLUME] IN BLOOD BY AUTOMATED COUNT 0.2 10*3/u L 0.0 - 0.5 02/25 Specimen Type: BLOOD Comment: Blood older than 8 hours, cells and morphology may be affected. Ordering Provider: HAYDE VALENCIA Report Released Date/Time: Feb 25, 2024 03:04 PM Reporting Lab: [address] [phone] Performing Lab: [place] [phone] CBC WITH DIFFERENT IAL BASOPHILS [#/VOLUME] IN BLOOD BY AUTOMATED COUNT 0.1 10*3/u L 0.0 - 0.1 02/25 Specimen Type: BLOOD Comment: Blood older than 8 hours, cells and morphology may be affected. Ordering Provider: HAYDE VALENCIA Report Released Date/Time: Feb 25, 2024 03:04 PM Reporting Lab: [address] [phone] Performing Lab: [address] CBC WITH DIFFERENT IAL BASOPHILS/1 00 LEUKOCYTES IN BLOOD BY AUTOMATED COUNT 1.1 02/25 H Specimen Type: BLOOD Comment: Blood older than 8 hours, cells and morphology may be affected. Ordering Provider: HAYDE VALENCIA Report Released Date/Time: Feb 25, 2024 03:04 PM Reporting Lab: [place] [phone] Performing Lab: [place] [phone] CBC WITH DIFFERENT IAL EOSINOPHILS /100 LEUKOCYTES IN BLOOD BY AUTOMATED COUNT 3.3 02/25 Specimen Type: BLOOD Comment: Blood older than 8 hours, cells and morphology may be affected. Ordering Provider: HAYDE VALENCIA Report Released Date/Time: Feb 25, 2024 03:04 PM Reporting Lab: [address] [phone] Performing Lab: [address] Vital Signs Combined list of inpatient and outpatient Vital Signs from Department of Defense and Veterans Affairs, ranging from 12 months to all on record, depending upon the facility. Vital Sign Value Date Comments Source SYSTOLIC BLOOD PRESSURE 146 08/12/2024 13:17:23 [facility] DIASTOLIC BLOOD PRESSURE 94 08/12/2024 13:17:23 [facility] PULSE OXIMETRY 97 08/12/2024 13:17:23 [facility] WEIGHT 260 08/12/2024 13:17:23 [facility] BMI 33 kg/m2 08/12/2024 13:17:23 [facility] PAIN 7 08/12/2024 13:17:23 [facility] HEIGHT 74 08/12/2024 13:17:23 [facility] TEMPERATURE 98.7 08/12/2024 13:17:23 [facility] PULSE 89 08/12/2024 13:17:23 [facility] RESPIRATION 18 08/12/2024 13:17:23 [facility] SYSTOLIC BLOOD PRESSURE 130 06/05/2024 15:06:31 [facility] DIASTOLIC BLOOD PRESSURE 94 06/05/2024 15:06:31 [facility] PULSE OXIMETRY 95 06/05/2024 15:06:31 [facility] WEIGHT 273 06/05/2024 15:06:31 [facility] BMI 35 kg/m2 06/05/2024 15:06:31 [facility] PAIN 7 06/05/2024 15:06:31 [facility] HEIGHT 74 06/05/2024 15:06:31 [facility] TEMPERATURE 97.5 06/05/2024 15:06:31 [facility] PULSE 100 06/05/2024 15:06:31 [facility] RESPIRATION 20 06/05/2024 15:06:31 [facility] SYSTOLIC BLOOD PRESSURE 156 04/30/2024 09:04:41 [facility] DIASTOLIC BLOOD PRESSURE 100 04/30/2024 09:04:41 [facility] WEIGHT 260.1 04/30/2024 09:04:41 [facility] BMI 33 kg/m2 04/30/2024 09:04:41 [facility] PAIN 10 04/30/2024 09:04:41 [facility] PULSE 84 04/30/2024 09:04:41 [facility] SYSTOLIC BLOOD PRESSURE 144 03/18/2024 10:23:43 [facility] DIASTOLIC BLOOD PRESSURE 89 03/18/2024 10:23:43 [facility] WEIGHT 242.3 03/18/2024 10:23:43 [facility] BMI 31 kg/m2 03/18/2024 10:23:43 [facility] PAIN 9 03/18/2024 10:23:43 [facility] PULSE 84 03/18/2024 10:23:43 [facility] SYSTOLIC BLOOD PRESSURE 114 02/26/2024 09:16:25 [facility] DIASTOLIC BLOOD PRESSURE 78 02/26/2024 09:16:25 [facility] PULSE OXIMETRY 97 02/26/2024 09:16:25 [facility] WEIGHT 234 02/26/2024 09:16:25 [facility] BMI 30 kg/m2 02/26/2024 09:16:25 [facility] PAIN 8 02/26/2024 09:16:25 [facility] HEIGHT 74 02/26/2024 09:16:25 [facility] TEMPERATURE 97.7 02/26/2024 09:16:25 [facility] PULSE 79 02/26/2024 09:16:25 [facility] RESPIRATION 18 02/26/2024 09:16:25 [facility] Encounters Combined list of: 1) Encounters from Department of Veterans Affairs facilities going backup to the last 18 months, not all VA inpatient encounters are included; 2) Encounters from the Department of [facility] facilities going backup to 280 months. Location Location Details Encounter Type Encounter Number Reason For Visit Attending Provider ADM Date DC Date Status Disposition Source [employer]([facility] Health [facility]) TELE CONSULT [id number] Adverse Drug Reactio n KATHY Ramírez 03/13 [employer]([facility] Health [facility]) [facility] Outpatient Encounter [id number] 04/17 [facility] Outpatient Encounter [id number] 05/06 [facility]counter [id number] 05/21 [facility] Out[facility] Encounter [id number] 06/06 [facility] Outpatient Encounter [id number] 07/29 [facility] HC PRO PHONE CALL 5-10 MIN [id number] Diagnos is: ICD-10- CM 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, 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 MMY E 08/11 [facility] OFFICE O/P EST MOD 30 MIN [id number] Diagnos is: ICD-10- CM F33.2 Major depress v disorde r, recurre nt severe w/o psych feature s ANMOL TALAMANTES W 08/26 [facility] BRIEF EMOTIONAL/ BEHAV ASSMT [id number] Diagnos is: ICD-10- CM F33.2 Major depress v disorde r, recurre nt severe w/o psych feature s ARELY JONES MMY E 08/26 [facility] Outpatient Encounter [id number] 08/27 [facility] Outpatient Encounter [id number] 08/29 [facility] Outpatient Encounter [id number] 08/29 [facility] HC PRO PHONE CALL 11-20 MIN [id number] Diagnos is: ICD-10- CM 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, 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 ABBY MOBLEY 10/29 [facility] Outpatient Encounter [id number] 10/29 [facility] CASE MANAGEMENT [id number] Diagnos is: ICD-10- CM Z65.9 Problem related to 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 psychos ocial circums Rylee Zuniga NNA M 10/30 [facility] Outpatient Encounter [id number] 11/03 [facility] Outpatient Encounter [id number] RUSSOM-EAR LS,ELIGIO M 11/03 [facility] Outpatient Encounter [id number] 11/04 [facility] Outpatient Encounter [id number] SA HAMMAD OLIVER A 11/04 [facility] Outpatient Encounter [id number] 11/04 [facility] Outpatient Encounter 63306-2.59 [id number] 11/04 [facility] Outpatient Encounter 90428-6.59 [id number] 11/09 [facility] Outpatient Encounter 67043-4.59 [id number] 41 11/09 [facility] Outpatient Encounter 37184-9.59 [id number] 11/09 [facility] Outpatient Encounter 50507-1.59 [id number] 11/09 [facility] Inpatient Encounter 71423-7.59 [id number] Admit Reason: HEATHER MALDONADO 11/09 Regular discharge from inpatient treatment. [facility] Inpatient Encounter 27843-9.59 [id number] 11/09 [facility] Inpatient Encounter 80653-8.59 [id number] 11/09 [facility] Inpatient Encounter 50554-1.59 [id number] 11/09 [facility] Inpatient Encounter 44439-8.59 [id number] 11/09 [facility] Inpatient Encounter 71609-9.59 [id number] 11/09 [facility] Inpatient Encounter 01483-1.59 [id number] 11/09 [facility] Inpatient Encounter 58094-5.59 [id number] 11/09 [facility] CASE MANAGEMENT 52779-5.59 [id number] 39 Diagnos is: ICD-10- CM Z65.9 Problem related to 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 psychos ocial circums tonya JEFFREYACACIARylee 11/10 [facility] Inpatient Encounter 57454-8.59 [id number] 11/10 [facility] Inpatient Encounter 79501-8.59 [id number] 61 Diagnos is: ICD-10- CM F10.10 Alcohol abuse, uncompl icated REECE REYNOSO 11/10 [facility] Inpatient Encounter 02314-2.59 [id number] 11/10 [facility] OFF/OP CONSLTJ NEW/[place] HI 55 08069-9.59 [id number] Diagnos is: ICD-10- CM G43.911 Migrain e, 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, intract able, with status migrain osus JOE MCNAMARA 11/10 [facility] IP/OBS CONSLTJ NEW/[place] HI 80 57030-9.59 [id number] Diagnos is: ICD-10- CM A41.01 Sepsis due to Methici llin suscept ible Staphyl ococcus aureus SAHRA LOZANO 11/10 [facility] 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 [employer] INDIVIDU 92769-2.59 [id number] Diagnos is: ICD-10- CM 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 WALLACE Veliz 11/10 [facility] Inpatient Encounter 46624-3.59 [id number] 11/10 [facility] HLTH BHV ASSMT/REAS SESSMENT 85581-4.59 [id number] Diagnos is: ICD-10- CM Z65.9 Problem related to 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 psychos ocial circums CHARISSA Tse 11/10 [facility] Inpatient Encounter 69886-5.59 [id number] 11/10 [facility] Inpatient Encounter 71594-0.59 [id number] 11/10 [facility] Inpatient Encounter 20894-0.59 [id number] 11/11 [facility] SBSQ HOSP IP/OBS HIGH 50 48314-3.59 [id number] Diagnos is: ICD-10- CM G43.911 Migrain e, 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, intract able, with status migrain osus JOE MCNAMARA 11/11 [facility] Inpatient Encounter 95234-8.59 [id number] 11/11 [facility] Inpatient Encounter 64925-3.59 [id number] 11/11 [facility] 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 16207-1.59 [id number] Diagnos is: ICD-10- CM 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 WALLACE Veliz 11/11 [facility] CASE MANAGEMENT 19833-9.59 [id number] Diagnos is: ICD-10- CM Z65.9 Problem related to 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 psychos ocial circums tonya LANDAVERDECHARISSA Rodriguez 11/11 [facility] Inpatient Encounter 30698-8.59 [id number] 11/11 [facility] Inpatient Encounter 65566-4.59 [id number] 11/11 [facility] PT EVAL LOW COMPLEX 20 MIN 71280-0.59 [id number] Diagnos is: ICD-10- CM R51.9 Headach e, 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 GENARO CORTEZ GABRIELA W 11/12 [facility] QNHP OL DIG ASSMT&MGMT 5-10 34117-4.59 [id number] Diagnos is: ICD-10- CM Z51.81 Encount er for therape utic drug level monitor ANGELINA Guerrero E 11/12 [facility] CASE MANAGEMENT 24192-8.59 [id number] Diagnos is: ICD-10- CM Z65.9 Problem related to 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 psychos ocial circums tonya LANDAVERDECHARISSA Rodriguez 11/12 [facility] SBSQ HOSP IP/OBS MODERATE 35 36182-4.59 [id number] Diagnos is: ICD-10- CM R78.81 Bactere MACRINA Miranda 11/12 [facility] Inpatient Encounter 06642-2.59 [id number] 11/12 [facility] Inpatient Encounter 32209-2.59 [id number] 11/12 [facility] Inpatient Encounter 09426-3.59 [id number] 11/12 [facility] Inpatient Encounter 57566-9.59 [id number] 11/13 [facility] Inpatient Encounter 13988-9.59 [id number] 11/13 [facility] OT EVAL LOW COMPLEX 30 MIN 42959-9.59 [id number] Diagnos is: ICD-10- CM R51.9 Headach e, 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 GERMAN NGUYEN 11/13 [facility] Inpatient Encounter 90166-7.59 [id number] Diagnos is: ICD-10- CM G47.33 Obstruc tive sleep apnea (adult) (pediat kristi) GENARO WEBB 11/13 [facility] Inpatient Encounter 71499-3.59 [id number] 11/13 [facility] Inpatient Encounter 42662-1.59 [id number] 11/13 [facility] SBSQ HOSP IP/OBS HIGH 50 36408-5.59 [id number] Diagnos is: ICD-10- CM R51.9 Headach e, 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 MACRINA LEBLANC 11/13 [facility] Inpatient Encounter 84826-6.59 [id number] 11/13 [facility] SELF-MGMT EDUC & TRAIN 1 [place] [address]-1.59 [id number] Diagnos is: ICD-10- CM G47.33 Obstruc tive sleep apnea (adult) (pediat kristi) Rylee ECKERTTREASURE Michael 11/13 [facility] Inpatient Encounter 63574-7.59 [id number] 11/14 [facility] Inpatient Encounter 17529-6.59 [id number] 11/14 [facility] Inpatient Encounter 93491-1.59 [id number] 11/14 [facility] Inpatient Encounter 37232-4.59 [id number] 11/14 [facility] Inpatient Encounter 43127-1.59 [id number] 11/14 [facility] 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 [employer] IN[employer]U 82742-0.59 [id number] Diagnos is: ICD-10- CM 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 WALLACE Veliz 11/14 [facility] QNHP OL DIG ASSMT&MGMT 5-10 14371-8.59 [id number] Diagnos is: ICD-10- CM Z51.81 Encount er for therape utic drug level monitor BRAYAN Olivares 11/14 [facility] CASE MANAGEMENT 46071-9.59 [id number] Diagnos is: ICD-10- CM Z65.9 Problem related to 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 psychos ocial circums CHARISSA Tse 11/14 [facility] OFF/OP EST AUGUST X REQ PHY/QHP 26100-7.59 [id number] 56 Diagnos is: ICD-10- CM F10.10 Alcohol abuse, uncompl icated Araceli VYAS F 11/17 [place] BOB RVW MEDS BY RX/DR [facility] 02873-2.59 [id number] 47 Diagnos is: ICD-10- CM F10.20 Alcohol depende nce, uncompl icated MIRELLA HOLLOWAY P 11/17 [facility] SLEEP STUDY UNATT&RESP EFFT 76005-5.59 [id number] Diagnos is: ICD-10- CM G47.30 Sleep apnea, 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 ZORANGERMANHARMAN Gleason M 11/17 [facility] SLEEP STUDY UNATT&RESP EFFT 11842-5.59 [id number] Diagnos is: ICD-10- CM G47.33 Obstruc tive sleep apnea (adult) (pediat kristi) GENARO WEBB G 11/17 [facility] Outpatient Encounter 32012-3.59 [id number] 11/18 [place] [facility] PRO PHONE CALL 11-20 MIN 80771-5.59 [id number] 84 Diagnos is: ICD-10- CM F10.10 Alcohol abuse, uncompl icated CONNORSNONA CYNTHIA N 11/19 [place] BRIEF EMOTIONAL/ BEHAV ASSMT 72746-5.59 [id number] 40 Diagnos is: ICD-10- CM F10.10 Alcohol abuse, uncompl icated ANGELESAM Y J 11/20 [facility] Outpatient Encounter 70138-7.59 [id number] 11/20 [place] [facility]REAS SESS[facility] 97201-3.59 [id number] 03 Diagnos is: ICD-10- CM F10.10 Alcohol abuse, uncompl icated TERRANCE GLASER 11/20 [facility] Outpatient Encounter 85839-6.59 [id number] 11/21 [facility] HEALTH ASSESS BY NON- 14034-5.59 [id number] 92 Diagnos is: ICD-10- CM F10.10 Alcohol abuse, uncompl icated Jeanette RAMIREZ 11/21 [facility] PSYCHOTHER APY 04513-9.59 [id number] 68 Diagnos is: ICD-10- CM F10.10 Alcohol abuse, uncompl icated Jeanette RAMIREZ 11/21 [facility] Outpatient Encounter 41826-2.59 [id number] 11/21 [facility] [place] [address]-3.59 [id number] 29 Diagnos is: ICD-10- CM F10.10 Alcohol abuse, uncompl icated LILY,CL AUDIA E 11/21 [facility] Outpatient Encounter 03251-1.59 [id number] Jeanette RAMIREZ 11/21 [facility] Outpatient Encounter 27859-0.59 [id number] Jeanette RAMIREZ 11/21 [facility] Outpatient Encounter 82316-5.59 [id number] 43 11/21 [facility] Outpatient Encounter 03340-2.59 [id number] 74 11/21 [facility] HEALTH ASSESS BY ANGELICA 90558-4.59 [id number] 07 Diagnos is: ICD-10- CM F10.10 Alcohol abuse, uncompl icated TERRANCE GLASER L 11/24 [facility] PSYCHOTHER APY 02798-5.59 [id number] 19 Diagnos is: ICD-10- CM F10.10 Alcohol abuse, uncompl icated LILY,CL AUDIA E 11/24 [facility] PSYCHOTHER APY 36632-4.59 [id number] 43 Diagnos is: ICD-10- CM F10.10 Alcohol abuse, uncompl icated AARTI HEIN IE 11/24 [facility] HC PRO PHONE CALL 11-20 MIN 64878-4.59 [id number] 12 Diagnos is: ICD-10- CM F10.10 Alcohol abuse, uncompl icated SOMSETHARELY MMY E 11/24 [facility] PSYCH DIAGNOSTIC EVALUATION 02227-0.59 [id number] 07 Diagnos is: ICD-10- CM F10.10 Alcohol abuse, uncompl icated NONA CONNORS CYNTHIA N 11/24 [facility] HEALTH ASSESS BY NON-MD 89314-1.59 [id number] 34 Diagnos is: ICD-10- CM F10.10 Alcohol abuse, uncompl icated AARTI HEIN IE 11/25 [facility] PSYCHOTHER APY 70950-1.59 [id number] 26 Diagnos is: ICD-10- CM F10.10 Alcohol abuse, uncompl icated VIVEKFARJeanette Yan G 11/25 [facility] PSYCHOTHER APY 02771-2.59 [id number] 09 Diagnos is: ICD-10- CM F10.10 Alcohol abuse, uncompl icated AARTI HEIN IE 11/25 [facility] PSYTX W PT 30 MINUTES 33585-7.59 [id number] 04 Diagnos is: ICD-10- CM F10.10 Alcohol abuse, uncompl icated LILYYASHIRA ENG E 11/25 [facility] Outpatient Encounter 09813-8.59 [id number] 11/25 [facility] HEALTH ASSESS BY NON- 75116-5.59 [id number] 92 Diagnos is: ICD-10- CM F10.10 Alcohol abuse, uncompl icated Jeanette RAMIREZ 11/26 [facility] PSYCHOTHER APY 99770-4.59 [id number] 38 Diagnos is: ICD-10- CM F10.10 Alcohol abuse, uncompl icated Roosevelt SMITH 11/26 [facility] PSYCHOTHER APY 97744-9.59 [id number] 35 Diagnos is: ICD-10- CM F10.10 Alcohol abuse, uncompl icated Olivia PEREZ 11/26 [facility] HEALTH ASSESS BY NON- 95176-4.59 [id number] 58 Diagnos is: ICD-10- CM F10.10 Alcohol abuse, uncompl icated CATALINO LOZA 11/27 [facility] Outpatient Encounter 72495-9.59 [id number] 86 11/27 [facility] Outpatient Encounter 82330-7.59 [id number] 40 11/27 [facility] Outpatient Encounter 27262-9.59 [id number] 11/27 [facility] Outpatient Encounter 27375-2.59 [id number] 82 12/01 [facility] Outpatient Encounter 82175-7.59 [id number] 12/03 [facility] Outpatient Encounter 43725-9.59 [id number] 12/17 [facility] Outpatient Encounter 98862-4.59 [id number] 12/19 [facility] Outpatient Encounter 35315-4.59 [id number] 12/22 [facility] Outpatient Encounter 83417-0.59 [id number] Jeanette HOYOS 12/24 [facility] HC PRO PHONE CALL 5-10 MIN 08015-7.59 [id number] 17 Diagnos is: ICD-10- CM F10.10 Alcohol abuse, uncompl icated ARELY JONES MMY E 12/30 [facility] Outpatient Encounter 51330-0.59 [id number] 12/31 [facility] Outpatient Encounter 17495-0.59 [id number] 01/12 [facility] Outpatient Encounter 71661-3.59 [id number] 01/14 [facility] Outpatient Encounter 50797-7.59 [id number] 01/29 [facility] HC PRO PHONE CALL 11-20 MIN 99640-0.59 [id number] 76 Diagnos is: ICD-10- CM F31.9 Bipolar disorde r, 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 ARELY JONES MMY E 02/24 [facility] Outpatient Encounter 79594-1.59 [id number] 02/25 [facility] OFFICE O/P EST LOW 20 MIN 92235-4.59 [id number] 91 Diagnos is: ICD-10- CM F43.12 Post-tr aumatic stress disorde r, chronic DAR VALENCIA 02/25 [facility] Outpatient Encounter 62526-2.59 [id number] 02/26 [facility] RN SERVICES UP TO 15 MINUTES 26846-8.59 [id number] 00 Diagnos is: ICD-10- CM F31.9 Bipolar disorde r, unspeci 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 MMY E 03/03 [facility] OFFICE O/P EST MOD 30 MIN 97664-2.59 [id number] 34 Diagnos is: ICD-10- CM F33.2 Major depress v disorde r, recurre nt severe w/o psych feature s ANMOL TALAMANTES MAS W 03/03 [facility] Outpatient Encounter 88549-1.59 [id number] 03/04 [facility] Outpatient Encounter 54716-7.59 [id number] 03/18 [facility] OFF/OP CONSLTJ NEW/[place] HI 55 17920-9.59 [id number] Diagnos is: ICD-10- CM M12.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, right ankle and foot GABRIELLA PROCTOR N G 03/18 [facility] Outpatient Encounter 76911-5.59 [id number] 03/18 [facility] Outpatient Encounter 56862-4.59 [id number] 03/19 [facility] Outpatient Encounter 47605-6.59 [id number] 72 03/23 [facility] RN SERVICES UP TO 15 MINUTES 29255-8.59 [id number] 74 Diagnos is: ICD-10- CM F31.9 Bipolar disorde r, unspeci 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 MMY E 03/27 [facility] OFFICE O/P EST MOD 30 MIN 87854-6.59 [id number] 20 Diagnos is: ICD-10- CM F33.2 Major depress v disorde r, recurre nt severe w/o psych feature s ANMOL TALAMANTES W 03/27 [facility] Outpatient Encounter 43545-5.59 [id number] 03/30 [facility] Outpatient Encounter 13068-6.65 [id number] 4 ABBY MOBLEY RIL L 04/02 [facility] Outpatient Encounter 35480-3.59 [id number] 04/21 [facility] OFFICE O/P EST HI 40 MIN 15151-8.59 [id number] Diagnos is: ICD-10- CM 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 , right ankle and foot GABRIELLA PROCTOR G 04/30 [facility] Outpatient Encounter 72343-8.59 [id number] 05/13 [facility] Outpatient Encounter 63296-9.59 [id number] 05/21 [place] Outpatient Encounter 55239-0.59 [id number] 16 05/26 [place] Outpatient Encounter 12006-1.59 [id number] 15 05/27 [facility] Outpatient Encounter 61657-6.59 [id number] 11 05/28 [facility] Outpatient Encounter 38033-4.59 [id number] 05/28 [facility] Outpatient Encounter 45333-9.67 [id number] 06/05 [facility] FELICIA [facility] Outpatient Encounter 74950-8.56 [id number] 06/05 DOMENICA CHEUNG [facility] Outpatient Encounter 26859-3.65 [id number] 8 06/05 [facility] RN SERVICES UP TO 15 MINUTES 89093-1.59 [id number] 16 Diagnos is: ICD-10- CM F33.2 Major depress v disorde r, recurre nt severe w/o psych feature s SOMARELY ANN MMY E 06/05 [facility] OFFICE O/P EST MOD 30 MIN 66384-6.59 [id number] 06 Diagnos is: ICD-10- CM F33.2 Major depress v disorde r, recurre nt severe w/o psych feature s ANMOL TALAMANTES W 06/05 [facility] OFFICE O/P EST LOW 20 MIN 53463-3.59 [id number] 94 Diagnos is: ICD-10- CM M25.571 Pain in right ankle and joints of right foot JAYDE GONZALEZ L 06/05 [facility] Outpatient Encounter 76142-3.59 [id number] DAR VALENCIA 06/08 [facility] Outpatient Encounter 59162-0.59 [id number] 06/10 [facility] Outpatient Encounter 14831-6.59 [id number] 06/12 [facility] Outpatient Encounter 20093-2.59 [id number] 65 06/12 [facility] Outpatient Encounter 73590-8.65 [id number] 6 ABBY MOBLEY 06/15 [facility] WHEELCHAIR MNGMENT TRAINING 81405-8.59 [id number] 45 Diagnos is: ICD-10- CM 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, 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 Rosemary DHALIWAL 06/15 [facility] Outpatient Encounter 44492-1.65 [id number] 0 ABBY MOBLEY RIL L 06/17 [facility] Outpatient Encounter 87908-8.59 [id number] Diagnos is: ICD-10- CM S88.111 S Complet e traum amp at [place] [facility] alessandra leg, ABIMBOLA Santos 06/17 [facility] Outpatient Encounter 52986-1.65 [id number] 6 ABBY MOBLEY RIL L 06/18 [facility] Outpatient Encounter 94998-9.59 [id number] 19 06/19 [facility] CASE MANAGEMENT 75318-4.59 [id number] 46 Diagnos is: ICD-10- CM Z65.9 Problem related to 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 psychos ocial circums tanRylee Go NNA M 06/19 [facility] Outpatient Encounter 21085-5.59 [id number] 06/22 [facility] PH1 ASSMT&MGMT NQHP 5-10 93340-3.59 [id number] 29 Diagnos is: ICD-10- CM Z65.9 Problem related to 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 psychos ocial circums tanRylee Go NNA M 06/22 [facility] CASE MANAGEMENT 33218-0.59 [id number] 94 Diagnos is: ICD-10- CM Z65.9 Problem related to 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 psychos ocial circums tanyolie BURDENA NNA M 06/22 [facility] Outpatient Encounter 04300-6.65 [id number] 0 ABBY MOBLEY RIL L 06/26 [facility] Outpatient Encounter 44805-4.59 [id number] 06/26 [facility] Outpatient Encounter 95594-1.65 [id number] 5 ABBY MOBLEY RIL L 06/29 [facility] NQHP OL DIG ASSMT&MGMT 21+ 80564-8.59 [id number] Diagnos is: ICD-10- CM Z79.891 retirement (curren t) use of opiate analges ic INGRID VALERA 07/03 [facility] Outpatient Encounter 34913-5.59 [id number] 83 07/13 [facility] THERAPEUTI C ACTIVITIES 72664-4.59 [id number].[id number] 67 Diagnos is: ICD-10- CM R26.9 Unspeci fied abnorma lities of gait and mobilit Emani Baker 07/13 [facility] WHEELCHAIR MNGMENT TRAINING 44750-3.59 [id number].[id number] 09 Diagnos is: ICD-10- CM 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, 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 oRsemary DHALIWAL 07/13 [facility] Outpatient Encounter 11728-0.59 [id number] 07/21 [facility] Outpatient Encounter 34110-0.65 [id number] 8 ABBY MOBLEY RIL L 07/21 [facility] Outpatient Encounter 94660-6.59 [id number] 07/21 [facility] Outpatient Encounter 29295-8.59 [id number] 07/22 [facility] Outpatient Encounter 59432-7.65 [id number] 9 ABBY MOBLEY L 07/24 [facility] Outpatient Encounter 43732-5.65 [id number] 3 ABBY MOBLEY RIL L 08/03 [facility] F[facility] FEE 23883-6.59 [id number].[id number] 57 Diagnos is: ICD-10- CM 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 Emani HARRIS A 08/10 [facility] OFF/OP CONSLTJ NEW/EST HI 55 99005-6.59 [id number] 41 Diagnos is: ICD-10- CM 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 ELAINA DAY 08/10 [place] [facility] Outpatient Encounter 65867-4.59 [id number] 08/10 [facility] Outpatient Encounter 87188-5.65 [id number] 7 ABBY MOBLEY RIL L 08/11 [facility] Outpatient Encounter 97218-0.59 [id number] Diagnos is: ICD-10- CM G54.6 Phantom limb syndrom e with pain CHARISSE COKER 08/11 [facility] Outpatient Encounter 29992-2.59 [id number] 08/12 [facility] OFFICE O/P EST LOW 20 MIN 19708-9.59 [id number] 03 Diagnos is: ICD-10- CM 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 DAR VALENCIA 08/12 [facility] OFFICE O/P EST MOD 30 MIN 24720-0.59 [id number].[id number] 32 Diagnos is: ICD-10- CM F33.2 Major depress v disorde r, recurre nt severe w/o psych feature s ANMOL TALAMANTES W 08/14 [facility] Outpatient Encounter 25332-7.65 [id number] 1 ABBY MOBLEY RIL L 08/17 [facility] Outpatient Encounter 68666-4.59 [id number] 08/24 [facility] Outpatient Encounter 56824-2.59 [id number] 08/25 [facility] Outpatient Encounter 27893-8.59 [id number] 08/26 [facility] Outpatient Encounter 10205-9.59 [id number] 09/02 [facility] Outpatient Encounter 26629-9.65 [id number] 1 ABBY MOBLEY RIL L 09/03 [facility] PH1 ASSMT&MGMT NQHP 5-10 30844-2.59 [id number] 34 Diagnos is: ICD-10- CM 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 [place] 09/03 [facility] SY[place] 60 13865-3.59 [id number] Diagnos is: ICD-10- CM G54.6 Phantom limb syndrom e with pain CHARISSE COKER M 09/08 [facility] Outpatient Encounter 66561-4.59 [id number] 10/01 [facility] SY[place]CH [place]UDIO[place] 40 02930-1.59 [id number] Diagnos is: ICD-10- CM G54.6 Phantom limb syndrom e with pain FANTA TOMASCHARISSE M 10/08 [facility] PSYCH DIAGNOSTIC EVALUATION 75271-2.59 [id number] 40 Diagnos is: ICD-10- CM G89.4 Chronic pain syndrom e VEE CHE ICA H 10/12 [facility] Outpatient Encounter 58846-5.59 [id number] VEE CHE ICA H 10/12 [facility] Procedures Combined list of: 1) Procedures from Department of Veterans Affairs facilities going back up to thelast 18 months, not all VA non-surgical procedures are included; 2) All procedures from the Department of Defense facilities. Procedure Procedure Type Code Date Perfomer Comments Sour e INDIVIDUAL PSYCHOTHERAPY, INSIGHT ORIENTED, BEHAVIOR MODIFYING AND/OR SUPPORTIVE, IN AN OFFICE OR OUTPATIENT FACILITY, APPROXIMATELY 45 TO 50 MINUTES [id number] W THE PATIENT; W MED EVAL & MGT SER 07/12/2004 [facility] INDIVIDUAL PSYCHOTHERAPY, INSIGHT ORIENTED, BEHAVIOR MODIFYING AND/OR SUPPORTIVE, IN AN OFFICE OR OUTPATIENT FACILITY, APPROXIMATELY 45 TO 50 MINUTES [id number] W THE PATIENT; W MED EVAL & MGT SER 05/12/2004 [facility] CRUTCHES UNDERARM, OTHER ERIKA N WOOD, ADJUSTABLE OR FIXED, PAIR, WITH PADS, TIPS AND HANDGRIPS 04/27/2004 [facility] VASECTOMY, UNILATERAL OR BILATERAL (SEPARATE PROCEDURE), INCLUDING POSTOPERATIVE SEMEN EXAM(S) 12/24/2003 [facility] COLLECTION OF VENOUS BLOOD B Y VENIPUNCTURE 11/12/2003 [facility] THERAPEUTIC PROCEDURE, 1 OR MORE AREAS, EACH 15 MINUTES; THERAPEUTIC EXERCISES TO DEVELOP STRENGTH AND ENDURANCE, RANGE OF MOTION AND FLEXIBILITY 10/19/2003 [facility] THERAPEUTIC PROCEDURE, 1 OR MORE AREAS, EACH 15 MINUTES; THERAPEUTIC EXERCISES TO DEVELOP STRENGTH AND ENDURANCE, RANGE OF MOTION AND FLEXIBILITY 10/15/2003 [facility] THERAPEUTIC PROCEDURE, 1 OR MORE AREAS, EACH 15 MINUTES; THERAPEUTIC EXERCISES TO DEVELOP STRENGTH AND ENDURANCE, RANGE OF MOTION AND FLEXIBILITY 10/06/2003 [facility] THERAPEUTIC PROCEDURE, 1 OR MORE AREAS, EACH 15 MINUTES; THERAPEUTIC EXERCISES TO DEVELOP STRENGTH AND ENDURANCE, RANGE OF MOTION AND FLEXIBILITY 10/01/2003 [facility] THERAPEUTIC PROCEDURE, 1 OR MORE AREAS, EACH 15 MINUTES; THERAPEUTIC EXERCISES TO DEVELOP STRENGTH AND ENDURANCE, RANGE OF MOTION AND FLEXIBILITY 09/28/2003 [facility] THERAPEUTIC PROCEDURE, 1 OR MORE AREAS, EACH 15 MINUTES; THERAPEUTIC EXERCISES TO DEVELOP STRENGTH AND ENDURANCE, RANGE OF MOTION AND FLEXIBILITY 09/21/2003 [facility] THERAPEUTIC PROCEDURE, 1 OR MORE AREAS, EACH 15 MINUTES; THERAPEUTIC EXERCISES TO DEVELOP STRENGTH AND ENDURANCE, RANGE OF MOTION AND FLEXIBILITY 09/16/2003 [facility] THERAPEUTIC PROCEDURE, 1 OR MORE AREAS, EACH 15 MINUTES; THERAPEUTIC EXERCISES TO DEVELOP STRENGTH AND ENDURANCE, RANGE OF MOTION AND FLEXIBILITY 09/14/2003 [facility] MANUAL THERAPY TECHNIQUES (EG, MOBILIZATION/ MANIPULATION, MANUAL LYMPHATIC DRAINAGE, MANUAL TRACTION), 1 OR MORE REGIONS, EACH 15 MINUTES 09/10/2003 [facility] MANUAL THERAPY TECHNIQUES (EG, MOBILIZATION/ MANIPULATION, MANUAL LYMPHATIC DRAINAGE, MANUAL TRACTION), 1 OR MORE REGIONS, EACH 15 MINUTES 09/08/2003 [facility] APPLICATION OF A MODALITY TO 1 OR MORE AREAS; HOT OR COLD PACKS 08/06/2003 DoD APPLICATION OF A MODALITY TO 1 OR MORE AREAS; HOT OR COLD PACKS 08/04/2003 DoD APPLICATION OF A MODALITY TO 1 OR MORE AREAS; HOT OR COLD PACKS 08/02/2003 DoD APPLICATION OF A MODALITY TO 1 OR MORE AREAS; HOT OR COLD PACKS 07/30/2003 DoD APPLICATION OF A MODALITY TO 1 OR MORE AREAS; HOT OR COLD PACKS 07/28/2003 DoD APPLICATION OF A MODALITY TO 1 OR MORE AREAS; HOT OR COLD PACKS 07/27/2003 DoD APPLICATION OF A MODALITY TO 1 OR MORE AREAS; HOT OR COLD PACKS 07/23/2003 DoD APPLICATION OF A MODALITY TO 1 OR MORE AREAS; HOT OR COLD PACKS 07/21/2003 DoD APPLICATION OF A MODALITY TO 1 OR MORE AREAS; HOT OR COLD PACKS 07/19/2003 DoD APPLICATION OF A MODALITY TO 1 OR MORE AREAS; HOT OR COLD PACKS 07/16/2003 DoD APPLICATION OF A MODALITY TO 1 OR MORE AREAS; HOT OR COLD PACKS 07/14/2003 DoD APPLICATION OF A MODALITY TO 1 OR MORE AREAS; HOT OR COLD PACKS 07/12/2003 DoD APPLICATION OF A MODALITY TO 1 OR MORE AREAS; HOT OR COLD PACKS 07/09/2003 DoD APPLICATION OF A MODALITY TO 1 OR MORE AREAS; HOT OR COLD PACKS 07/08/2003 DoD APPLICATION OF A MODALITY TO 1 OR MORE AREAS; HOT OR COLD PACKS 07/07/2003 DoD APPLICATION OF A MODALITY TO 1 OR MORE AREAS; HOT OR COLD PACKS 07/06/2003 [facility] THERAPEUTIC PROCEDURE, 1 OR MORE AREAS, EACH 15 MINUTES; THERAPEUTIC EXERCISES TO DEVELOP STRENGTH AND ENDURANCE, RANGE OF MOTION AND FLEXIBILITY 07/05/2003 [facility] SPECIAL CASTING MATERIAL (E.G., FIBERGLASS) 06/17/2003 [facility] APPLICATION OF SHORT LEG VIC T (BELOW KNEE TO TOES); WALKING OR AMBULATORY TYPE 05/31/2003 DoD INJECTION, MEPERIDINE HCL, PER 100 MG 05/12/2003 [facility] DETERMINATION OF REFRACTIVE STATE 03/25/2003 DoD INJECTION, TETANUS IMMUNE GLOBULIN, HUMAN, UP TO 250 UNITS 05/05/2002 [facility] INDIVIDUAL PSYCHOTHERAPY, INSIGHT ORIENTED, BEHAVIOR MODIFYING AND/OR SUPPORTIVE, IN AN OFFICE OR OUTPATIENT FACILITY, APPROXIMATELY 20 TO 30 MINUTES [id number] WITH THE PATIENT 04/24/2001 DoD INDIVIDUAL PSYCHOTHERAPY, INSIGHT ORIENTED, BEHAVIOR MODIFYING AND/OR SUPPORTIVE, IN AN OFFICE OR OUTPATIENT FACILITY, APPROXIMATELY 45 TO 50 MINUTES [id number] WITH THE PATIENT 03/03/2001 [facility] PHARMACOLOGIC MANAGEMENT, INCLUDING PRESCRIPTION, USE, AND REVIEW OF MEDICATION WITH NO MORE THAN MINIMAL MEDICAL PSYCHOTHERAPY 12/31/2000 [facility] INDIVIDUAL PSYCHOTHERAPY, INSIGHT ORIENTED, BEHAVIOR MODIFYING AND/OR SUPPORTIVE, IN AN OFFICE OR OUTPATIENT FACILITY, APPROXIMATELY 45 TO 50 MINUTES [id number] WITH THE PATIENT 12/05/2000 [facility] INDIVIDUAL PSYCHOTHERAPY, INSIGHT ORIENTED, BEHAVIOR MODIFYING AND/OR SUPPORTIVE, IN AN OFFICE OR OUTPATIENT FACILITY, APPROXIMATELY 20 TO 30 MINUTES [id number] WITH THE PATIENT 11/15/2000 [facility] PSYCHIATRIC DIAGNOSTIC INTERVIEW EXAMINATION 11/14/2000 [facility] DRESSING CHANGE (FOR OTHER THAN CORTEZ) UNDER ANESTHESIA (OTHER THAN LOCAL) 09/19/2000 [facility] REPAIR UMBILICAL HERNIA, AGE 5 YEARS OR OLDER; REDUCIBLE 09/18/2000 [facility] INDIVIDUAL PSYCHOTHERAPY, INSIGHT ORIENTED, BEHAVIOR MODIFYING AND/OR SUPPORTIVE, IN AN OFFICE OR OUTPATIENT FACILITY, APPROXIMATELY 45 TO 50 MINUTES [id number] WITH THE PATIENT 09/09/2000 [facility] INDIVIDUAL PSYCHOTHERAPY, INSIGHT ORIENTED, BEHAVIOR MODIFYING AND/OR SUPPORTIVE, IN AN OFFICE OR OUTPATIENT FACILITY, APPROXIMATELY 20 TO 30 MINUTES [id number] WITH THE PATIENT 06/27/2000 [facility]D GROUP PSYCHOTHERAPY (OTHER THAN OF A MULTIPLE-FAMILY GROUP) 06/25/2000 [facility] PHARMACOLOGIC MANAGEMENT, INCLUDING PRESCRIPTION, USE, AND REVIEW OF MEDICATION WITH NO MORE THAN MINIMAL MEDICAL PSYCHOTHERAPY 06/21/2000 [facility] GROUP PSYCHOTHERAPY (OTHER THAN OF A MULTIPLE-FAMILY GROUP) 06/11/2000 [facility] PHARMACOLOGIC MANAGEMENT, INCLUDING PRESCRIPTION, USE, AND REVIEW OF MEDICATION WITH NO MORE THAN MINIMAL MEDICAL PSYCHOTHERAPY 06/11/2000 [facility] INDIVIDUAL PSYCHOTHERAPY, INSIGHT ORIENTED, BEHAVIOR MODIFYING AND/OR SUPPORTIVE, IN AN OFFICE OR OUTPATIENT FACILITY, APPROXIMATELY 45 TO 50 MINUTES [id number] WITH THE PATIENT 06/03/2000 [facility] INDIVIDUAL PSYCHOTHERAPY, INSIGHT ORIENTED, BEHAVIOR MODIFYING AND/OR SUPPORTIVE, IN AN OFFICE OR OUTPATIENT FACILITY, APPROXIMATELY 45 TO 50 MINUTES [id number] WITH THE PATIENT 05/16/2000 [facility] THERAPEUTIC PROCEDURE, 1 OR MORE AREAS, EACH 15 MINUTES; THERAPEUTIC EXERCISES TO DEVELOP STRENGTH AND ENDURANCE, RANGE OF MOTION AND FLEXIBILITY 03/11/2000 [facility] PHARMACOLOGIC MANAGEMENT, INCLUDING PRESCRIPTION, USE, AND REVIEW OF MEDICATION WITH NO MORE THAN MINIMAL MEDICAL PSYCHOTHERAPY 01/31/2000 [facility] PHARMACOLOGIC MANAGEMENT, INCLUDING PRESCRIPTION, USE, AND REVIEW OF MEDICATION WITH NO MORE THAN MINIMAL MEDICAL PSYCHOTHERAPY 12/01/1999 [facility] PHARMACOLOGIC MANAGEMENT, INCLUDING PRESCRIPTION, USE, AND REVIEW OF MEDICATION WITH NO MORE THAN MINIMAL MEDICAL PSYCHOTHERAPY 11/27/1999 [facility] APPLICATION, CAST; HAND AND LOWER FOREARM 11/06/1999 [facility] APPLICATION, CAST; ELBOW TO FINGER 11/02/1999 [facility] Social History Combined list of available smoking, tobacco, and other social history from Department of Defense and Veterans Affairs facilities. Social History Type Response Date Comment Sour e Tobacco smoking status NHIS VA-TOBACCO SCREEN FOLLOW-UP 08/14/2024 [facility] History of tobacco use VA-TOBACCO USE FACULTY CRIMINAL JUSTICE NO 08/14/2024 [facility] History of tobacco use VA-TOBACCO USE FORMER CIGARETTES 08/12/2024 [facility] History of tobacco use VA-TOBACCO USE FORMER CIGARETTES 06/05/2024 [facility] History of tobacco use VA-TOBACCO USE WI 30 MIN OF WAKEUP 11/25/2023 Rylee CRUZ History of tobacco use VA-TOBACCO USER EVERY DAY 10/18/2022 [facility] History of tobacco use V16 TOBACCO USE SCREEN 11/18/2018 [facility] History of tobacco use V16 TOBACCO USE SCREEN 08/07/2016 [facility] History of tobacco use TOBACCO USE SCRN INPT 07/29/2016 [facility] PARRISH History of tobacco use FORMER TOBACCO USE >1Y <7Y 01/23/2014 [facility] History of tobacco use CURRENT SMOKELESS TOBACCO USER 11/09/2013 [facility] History of tobacco use V16 TOBACCO USE SCREEN 11/26/2011 [facility] History of tobacco use V16 TOBACCO USE SCREEN 12/25/2010 [facility] History of tobacco use CURRENT SMOKER 01/06/2010 [facility] History of tobacco use CURRENT SMOKER 02/10/2009 [facility] History of tobacco use V16 TOBACCO CESSATION PROGRAM DECLINED 04/11/2007 [facility] History of tobacco use V16 TOBACCO CESSATION PROGRAM DECLINED 08/07/2006 [facility] History of tobacco use V16 TOBACCO USE SCREEN 03/06/2006 [facility] History of tobacco use TOBACCO CESSATION: 1-5 YEARS 09/04/2005 [facility] History of tobacco use V16 TOBACCO CESSATION <12 MONTHS 07/27/2005 [facility] History of tobacco use TOBACCO CESSATION: <1 YEAR 04/26/2005 [facility] This section is an empty social history section. [facility] Plan of Care List of future care activities from Department of Veterans Affairs facilities. Additional future care activities may be listed in the Assessment and Plan section. Date/Time Care Activity Care Activity Detail Facili ty 10/20/2024 AMBULATORY - REHAB MEDICINE [facility] LATORY - REHAB MEDICINE [facility] Advance Directives List of completed, amended, or rescinded Advance Directives on record at Department of Veterans Affairs facilities. An actual copy of the Directive is not included. Date Advance Directive Provider Source 07/30/2016 ADVANCE DIRECTIVE DISCUSSION [facility]
[2024-10-14 19:31] VITALS: BP 154/104; PULSE 97; TEMP 36.7; O2SAT 95; BMI 33.1
--- OUTSIDE RECORDS SUMMARY | 2024-10-14 19:31 | XMS_ITS | Patient Health Record ---
Author Organization [facility] Address [address] [place] [address] [place] [address] Care Team Providers Care Factory Manager Name Role Phone Juwan Maldonado APRN Primary Care Provider U da Calderón Kellie Unavailable [phone] Faisal Johnson Unavailable [phone] Raza Beltran Unavailable [phone] Meri Gould Unavailable [phone] Sangeeta Taveras Unavailable Allergies Allergen (clinical drug ingredient) Drug/Non Drug Allergy documented on EMR Reaction Allergy Type Onset Date Status escitalopram Lexapro Unknown Drug Allergy Acti ve atomoxetine Strattera panic attack Drug Allergy Ac tive Results Component Value Reference Range Notes zzzUrine Drug Screen (confir mation by instrument) - [id number] Reviewed date:05/28/2024 11:24:14 AM Interpretation: Performing Lab: Notes/Report: Comprehensive Metabolic Pane l (CMP) [id number] Reviewed date:06/10/2024 03:12:06 PM Interpretation: Performing Lab: Notes/Report: Diagnosis Description: Post-traumatic osteoarthritis, right ankle and foot Diagnosis Description: Neuralgia and neuritis, unspecified Diagnosis Description: Encounter for other preprocedural examination Glucose Serum 73 71-110 MG/DL Testing perfor med at [facility], [address] [place] [address] VINCE Marquez [address]. CLIA ID#: [id number] BUN 16 7-21 MG/DL Creat 1.12 .57-1.17 MG/DL J-yyxozo-n-benzoquinon e imine (NAPQI) is a metabolite of acetaminophen, NAPQI concentrations of apparoximately 10 mg/L correlation to toxic levels of acetaminophen demonstrates a greater than or equil to 10% change in results. NAPQI concentrations greater than this may lead to falsely depressed results for patient samples. Use of this assay is not recommended for patients undergoing treatment with phenindione, due to the potential for falsely depressed results. GFR 80.3 Calculation per formed from GFR calculator provided by the [employer]. Glomerular Filtration rate(GRF) is the best overall index of kidney function. Normal GFR varies according to age,sex, body size, and declines with age. The [employer] recommends using the CKD-EPI Creatinine Equation(2020) to estimate GFR. BUN/Creat Ratio 14.3 12.0-20.0 % Total Protein 7.0 5.8-8.0 G/DL Albumin 4.6 3.2-4.8 G/DL Globulin 2.4 2.3-3.5 G/DL Alb/Glob 1.9 0.8-2.2 Calcium 9.7 8.7-10.4 MG/DL Sodium 137 136-145 MMOL/L Potassium 4.1 3.5-5.1 MMOL/L Chloride 99 98-107 MMOL/L CO2 30.5 20.0-31.0 MMOL/L Anion Gap 12 5-15 Alk Phos 145 46-116 Bili Total .4 .3-1.2 MG/DL Use of this ass ay is not recommended for patients undergoing treatment with eltrombopag due to the potential for falsely elevated results. AST/SGOT 68 15-37 UNIT/L ALT/SGPT 37 12-78 UNIT/L Osmo Serum,Calculated 284 280-300 MOSM/KG CBC Reflex Man Diff 44677, 8 8486 Reviewed date:06/10/2024 03:12:06 PM Interpretation: Performing Lab: Notes/Report: Diagnosis Description: Post-traumatic osteoarthritis, right ankle and foot Diagnosis Description: Neuralgia and neuritis, unspecified Diagnosis Description: Encounter for other preprocedural examination WBC 9.8 4.5-11.0 X10'3 RBC 5.24 4.50-5.90 X10'6 Hgb 15.2 13.5-17.5 G/DL Hct 46.2 41.0-53.0 % MCV 88.2 80.0-100.0 FL MCH 29.0 27.0-31.0 PG MCHC 32.9 31.0-37.0 G/DL Platelet 271 150-400 X10'3 RDW-SD 43.8 35.0-49.0 FL RDW-CV 13.3 12.2-15.6 % MPV 10.5 9.2-12.0 FL Review Auto Diff Conf Chest PA/Lat-[id number] Reviewed date:06/10/2024 03:12:06 PM Interpretation: Performing Lab: Notes/Report: uky=[id number]&org=[facility] Urine Confirmation Panel (in strument) - [id number] Reviewed date:07/14/2024 02:46:13 PM Interpretation: Performing Lab: Notes/Report: 6-Acetylmorphine 0 <6 ng/mL This test w as developed and its performance characteristics determined by [facility]. It has not been cleared or approved by the U.S. Food and Drug Administration. 7-Aminoclonazepam 0 <60 ng/mL This test was developed and its performance characteristics determined by [facility]. It has not been cleared or approved by the U.S. Food and Drug Administration. Alprazolam 0 <60 ng/mL This test was d eveloped and its performance characteristics determined by [facility]. It has not been cleared or approved by the U.S. Food and Drug Administration. Amphetamine 0 <75 ng/mL This test was d eveloped and its performance characteristics determined by [facility]. It has not been cleared or approved by the U.S. Food and Drug Administration. aOH-Alprazolam 0 <60 ng/mL This test was developed and its performance characteristics determined by [facility]. It has not been cleared or approved by the U.S. Food and Drug Administration. Buprenorphine 0.0 <7.5 ng/mL This test was developed and its performance characteristics determined by [facility]. It has not been cleared or approved by the U.S. Food and Drug Administration. Norbuprenorphine 0.0 <37.5 ng/mL This test w as developed and its performance characteristics determined by [facility]. It has not been cleared or approved by the U.S. Food and Drug Administration. Carisoprodol 0 <75 ng/mL This test was d eveloped and its performance characteristics determined by [facility]. It has not been cleared or approved by the U.S. Food and Drug Administration. Codeine 0 <75 ng/mL This test was d eveloped and its performance characteristics determined by [facility]. It has not been cleared or approved by the U.S. Food and Drug Administration. EDDP 0 <75 ng/mL This test was d eveloped and its performance characteristics determined by [facility]. It has not been cleared or approved by the U.S. Food and Drug Administration. Fentanyl 0 <6 ng/mL This test was d eveloped and its performance characteristics determined by [facility]. It has not been cleared or approved by the U.S. Food and Drug Administration. Hydrocodone 6 <75 ng/mL This test was d eveloped and its performance characteristics determined by [facility]. It has not been cleared or approved by the U.S. Food and Drug Administration. Hydromorphone 0 <75 ng/mL This test was developed and its performance characteristics determined by [facility]. It has not been cleared or approved by the U.S. Food and Drug Administration. Lorazepam 0 <60 ng/mL This test was d eveloped and its performance characteristics determined by [facility]. It has not been cleared or approved by the U.S. Food and Drug Administration. MDMA 2 <75 ng/mL This test was d eveloped and its performance characteristics determined by [facility]. It has not been cleared or approved by the U.S. Food and Drug Administration. Meperidine 0.0 <37.5 ng/mL This test was d eveloped and its performance characteristics determined by [facility]. It has not been cleared or approved by the U.S. Food and Drug Administration. Meprobamate 0 <75 ng/mL This test was d eveloped and its performance characteristics determined by [facility]. It has not been cleared or approved by the U.S. Food and Drug Administration. Methamphetamine 0 <75 ng/mL This test wa s developed and its performance characteristics determined by [facility]. It has not been cleared or approved by the U.S. Food and Drug Administration. Methadone 0 <75 ng/mL This test was d eveloped and its performance characteristics determined by [facility]. It has not been cleared or approved by the U.S. Food and Drug Administration. Morphine 29 <75 ng/mL This test was d eveloped and its performance characteristics determined by [facility]. It has not been cleared or approved by the U.S. Food and Drug Administration. Nordiazepam 0 <60 ng/mL This test was d eveloped and its performance characteristics determined by [facility]. It has not been cleared or approved by the U.S. Food and Drug Administration. Norfentanyl 0 <6 ng/mL This test was d eveloped and its performance characteristics determined by [facility]. It has not been cleared or approved by the U.S. Food and Drug Administration. Normeperidine 0.0 <37.5 ng/mL This test was developed and its performance characteristics determined by [facility]. It has not been cleared or approved by the U.S. Food and Drug Administration. O-desmethyltramadol 0 <75 ng/mL This geovanni t was developed and its performance characteristics determined by [facility]. It has not been cleared or approved by the U.S. Food and Drug Administration. Oxazepam 0 <60 ng/mL This test was d eveloped and its performance characteristics determined by [facility]. It has not been cleared or approved by the U.S. Food and Drug Administration. Oxycodone 639.0 <37.5 ng/mL This test was d eveloped and its performance characteristics determined by [facility]. It has not been cleared or approved by the U.S. Food and Drug Administration. Oxymorphone 132 <75 ng/mL This test was d eveloped and its performance characteristics determined by [facility]. It has not been cleared or approved by the U.S. Food and Drug Administration. Phencyclidine 0.0 <7.5 ng/mL This test was developed and its performance characteristics determined by [facility]. It has not been cleared or approved by the U.S. Food and Drug Administration. Tapentadol 6.7 <37.5 ng/mL This test was d eveloped and its performance characteristics determined by [facility]. It has not been cleared or approved by the U.S. Food and Drug Administration. Temazepam 0 <60 ng/mL This test was d eveloped and its performance characteristics determined by [facility]. It has not been cleared or approved by the U.S. Food and Drug Administration. Tramadol 0 <75 ng/mL This test was d eveloped and its performance characteristics determined by [facility]. It has not been cleared or approved by the U.S. Food and Drug Administration. Norhydrocodone 0 <75 ng/mL This test was developed and its performance characteristics determined by [facility]. It has not been cleared or approved by the U.S. Food and Drug Administration. Noroxycodone >2500 <38 ng/mL This test was d eveloped and its performance characteristics determined by [facility]. It has not been cleared or approved by the U.S. Food and Drug Administration. Pregabalin 3573 <225 ng/mL This test was d eveloped and its performance characteristics determined by [facility]. It has not been cleared or approved by the U.S. Food and Drug Administration. Gabapentin 0 <225 ng/mL This test was d eveloped and its performance characteristics determined by [facility]. It has not been cleared or approved by the U.S. Food and Drug Administration. Benzoylecgonine 0.5 <37.5 ng/mL This test wa s developed and its performance characteristics determined by [facility]. It has not been cleared or approved by the U.S. Food and Drug Administration. 4-Hydroxy Xylazine 0 <25 ng/mL This test was developed and its performance characteristics determined by [facility]. It has not been cleared or approved by the U.S. Food and Drug Administration. zzzCT Outside CD Reviewed date:05/28/2024 06:03:13 PM Interpretation: Performing Lab: Notes/Report: xjc=[id number]&org=[facility] Urine Confirmation Panel (in strument) - [id number] Reviewed date:06/01/2024 07:46:47 AM Interpretation: Performing Lab: Notes/Report: 6-Acetylmorphine 0 <6 ng/mL This test w as developed and its performance characteristics determined by [facility]. It has not been cleared or approved by the U.S. Food and Drug Administration. 7-Aminoclonazepam 0 <60 ng/mL This test was developed and its performance characteristics determined by [facility]. It has not been cleared or approved by the U.S. Food and Drug Administration. Alprazolam 0 <60 ng/mL This test was d eveloped and its performance characteristics determined by [facility]. It has not been cleared or approved by the U.S. Food and Drug Administration. Amphetamine 0 <75 ng/mL This test was d eveloped and its performance characteristics determined by [facility]. It has not been cleared or approved by the U.S. Food and Drug Administration. aOH-Alprazolam 0 <60 ng/mL This test was developed and its performance characteristics determined by [facility]. It has not been cleared or approved by the U.S. Food and Drug Administration. Buprenorphine 0.0 <7.5 ng/mL This test was developed and its performance characteristics determined by [facility]. It has not been cleared or approved by the U.S. Food and Drug Administration. Norbuprenorphine 0.0 <37.5 ng/mL This test w as developed and its performance characteristics determined by [facility]. It has not been cleared or approved by the U.S. Food and Drug Administration. Carisoprodol 0 <75 ng/mL This test was d eveloped and its performance characteristics determined by [facility]. It has not been cleared or approved by the U.S. Food and Drug Administration. Codeine 0 <75 ng/mL This test was d eveloped and its performance characteristics determined by [facility]. It has not been cleared or approved by the U.S. Food and Drug Administration. EDDP 0 <75 ng/mL This test was d eveloped and its performance characteristics determined by [facility]. It has not been cleared or approved by the U.S. Food and Drug Administration. Fentanyl 0 <6 ng/mL This test was d eveloped and its performance characteristics determined by [facility]. It has not been cleared or approved by the U.S. Food and Drug Administration. Hydrocodone 0 <75 ng/mL This test was d eveloped and its performance characteristics determined by [facility]. It has not been cleared or approved by the U.S. Food and Drug Administration. Hydromorphone 0 <75 ng/mL This test was developed and its performance characteristics determined by [facility]. It has not been cleared or approved by the U.S. Food and Drug Administration. Lorazepam 0 <60 ng/mL This test was d eveloped and its performance characteristics determined by [facility]. It has not been cleared or approved by the U.S. Food and Drug Administration. MDMA 0 <75 ng/mL This test was d eveloped and its performance characteristics determined by [facility]. It has not been cleared or approved by the U.S. Food and Drug Administration. Meperidine 0.0 <37.5 ng/mL This test was d eveloped and its performance characteristics determined by [facility]. It has not been cleared or approved by the U.S. Food and Drug Administration. Meprobamate 0 <75 ng/mL This test was d eveloped and its performance characteristics determined by [facility]. It has not been cleared or approved by the U.S. Food and Drug Administration. Methamphetamine 0 <75 ng/mL This test wa s developed and its performance characteristics determined by [facility]. It has not been cleared or approved by the U.S. Food and Drug Administration. Methadone 0 <75 ng/mL This test was d eveloped and its performance characteristics determined by [facility]. It has not been cleared or approved by the U.S. Food and Drug Administration. Morphine 0 <75 ng/mL This test was d eveloped and its performance characteristics determined by [facility]. It has not been cleared or approved by the U.S. Food and Drug Administration. Nordiazepam 0 <60 ng/mL This test was d eveloped and its performance characteristics determined by [facility]. It has not been cleared or approved by the U.S. Food and Drug Administration. Norfentanyl 0 <6 ng/mL This test was d eveloped and its performance characteristics determined by [facility]. It has not been cleared or approved by the U.S. Food and Drug Administration. Normeperidine 0.0 <37.5 ng/mL This test was developed and its performance characteristics determined by [facility]. It has not been cleared or approved by the U.S. Food and Drug Administration. O-desmethyltramadol 0 <75 ng/mL This geovanni t was developed and its performance characteristics determined by [facility]. It has not been cleared or approved by the U.S. Food and Drug Administration. Oxazepam 0 <60 ng/mL This test was d eveloped and its performance characteristics determined by [facility]. It has not been cleared or approved by the U.S. Food and Drug Administration. Oxycodone 0.0 <37.5 ng/mL This test was d eveloped and its performance characteristics determined by [facility]. It has not been cleared or approved by the U.S. Food and Drug Administration. Oxymorphone 0 <75 ng/mL This test was d eveloped and its performance characteristics determined by [facility]. It has not been cleared or approved by the U.S. Food and Drug Administration. Phencyclidine 0.0 <7.5 ng/mL This test was developed and its performance characteristics determined by [facility]. It has not been cleared or approved by the U.S. Food and Drug Administration. Tapentadol 3.1 <37.5 ng/mL This test was d eveloped and its performance characteristics determined by [facility]. It has not been cleared or approved by the U.S. Food and Drug Administration. Temazepam 0 <60 ng/mL This test was d eveloped and its performance characteristics determined by [facility]. It has not been cleared or approved by the U.S. Food and Drug Administration. Tramadol 0 <75 ng/mL This test was d eveloped and its performance characteristics determined by [facility]. It has not been cleared or approved by the U.S. Food and Drug Administration. Norhydrocodone 0 <75 ng/mL This test was developed and its performance characteristics determined by [facility]. It has not been cleared or approved by the U.S. Food and Drug Administration. Noroxycodone 0 <38 ng/mL This test was d eveloped and its performance characteristics determined by [facility]. It has not been cleared or approved by the U.S. Food and Drug Administration. Pregabalin 0 <225 ng/mL This test was d eveloped and its performance characteristics determined by [facility]. It has not been cleared or approved by the U.S. Food and Drug Administration. Gabapentin 61219 <225 ng/mL This test was d eveloped and its performance characteristics determined by [facility]. It has not been cleared or approved by the U.S. Food and Drug Administration. Benzoylecgonine 0.0 <37.5 ng/mL This test wa s developed and its performance characteristics determined by [facility]. It has not been cleared or approved by the U.S. Food and Drug Administration. 4-Hydroxy Xylazine 0 <25 ng/mL This test was developed and its performance characteristics determined by [facility]. It has not been cleared or approved by the U.S. Food and Drug Administration. Tox Results Reviewed date:06/01/2024 07:46:59 AM Interpretation: Performing Lab: Notes/Report: WBC Auto Diff--[id number] Reviewed date:06/10/2024 03:12:06 PM Interpretation: Performing Lab: Notes/Report: Added by Discern Rules Neutro Auto% 74.9 40.0-70.0 % Lymph Auto% 13.9 22.0-44.0 % Laurel Auto% 9.5 3.0-7.0 % Eos Auto% 1.0 2.0-4.0 % Baso Auto% 0.4 0.0-1.0 % NRBC% .00 .00-.20 /100 intact WBC's Neutro Abs 7.29 .80-7.70 Absolute Neutrophil Count 7290 Lymph Abs 1.36 .10-4.10 Laurel Abs .93 .20-1.00 Eos Abs .10 .00-.40 Baso Abs .04 .00-.20 NRBC# .00 .00-.20 Imm Gran Abs .03 .00-.10 Imm Gran% .3 .0-.4 % Chest PA/Lat-[id number] Reviewed date:06/12/2024 07:43:44 AM Interpretation: Performing Lab: Notes/Report: See Below For Report Chest PA/Lat Diagnosis Description: Post-traumatic osteoarthritis, right ankle and foot Read See Below For Report Glucometer WBG--[id number] Reviewed date:06/12/2024 07:43:28 AM Interpretation: Performing Lab: Notes/Report: Glucometer WBG 105 65-110 MG/DL Meter: [id number]~Video Production Engineer: [id number] JAZMÍN BAZAN Tox Results Reviewed date:07/14/2024 03:35:35 PM Interpretation: Performing Lab: Notes/Report: Urine Drug Screen (cup read) - [id number] Reviewed date:07/09/2024 03:57:25 PM Interpretation: Performing Lab: Notes/Report: OXY + US Surgery Unlisted Reviewed date:06/15/2024 01:42:44 PM Interpretation: Performing Lab: Notes/Report: This procedure was dictated and transcribed outside of the [employer] system. The results may be found in the patient's physical chart. FINAL REPORT Read This procedure was dictated and transcribed outside of the [employer] system. The results may be found in the patient's physical chart. 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) Referral Organization [facility] Referring Provider First Name Sangeeta Referring Provider Last Name Jennifer Ramirez Referring Provider Speciality Pain Medic ine Referred Provider [facility] Referred Provider Specialty Preventive M edicine Referral Priority Routine Medications Medication SIG (Take, Route, Frequency, Duration) Notes Start Date End Date Status Cephalexin 500 MG 1 capsule Orally every 6 hrs Not-Taking clonazePAM 1 MG TAKE 1 TABLET BY MOUTH EVERY 8 HOURS NEEDED FOR ANXIETY Oral for 3 Days Not-Taking Effexor Active Meloxicam 7.5 MG 1 tablet Orally twic e a day for 30 days 05/19/2024 Active HYDROmorphone HCl 4 MG TAKE 1 TABLET BY MOUTH EVERY 3 HOURS FOR 5 DAYS Oral for 5 Days Not-Taking Methocarbamol 750 MG 1 tablet Orally every 6-8 hrs for 30 days As needed Not to exceed 3 per day 05/19/2024 Not-Taking Naproxen 500 MG TAKE 1 TABLET BY MOUTH TWICE DAILY NEEDED FOR PAIN Oral for 10 Days Not-Taking Cyclobenzaprine HCl 10 MG TAKE 1 TABLET BY MOUTH THREE TIMES DAILY NEEDED FOR MUSCLE SPASM FOR 10 DAYS Oral for 10 Days Not-Taking Gabapentin 300 MG 2 caps Orally 3 time s a day Not-Taking Gabapentin 300 MG 1 capsule Orally Twice a day for 15 days 06/15/2024 Not-Taking HYDROcodone-Acetaminophen 5-325 MG TAKE 1 TABLET BY MOUTH EVERY 6 HOURS NEEDED FOR PAIN Oral for 2 Days Not-Taking Problems Problem Type SNOMED Code ICD Code Onset Dates Problem Status W/U Status Risk Notes Problem Chronic pain syndrome (436328983) Chronic pain syndrome (G89.4) Active confirmed Problem [id number] Pain in right ankle and joints of right foot (M25.571) Active confirmed Problem 44985594 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) Active confirmed Problem 427248761365043 Status post belo w knee amputation of right lower 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) Active confirmed Problem Peripheral neuropathy (867339624) Peripheral neuropathy (G62.9) Active confirmed Problem 17734076 Myalgia (M79.10) Active confirmed Problem Acquired polyneuropathy (15095016) Acquired polyneuropathy (G62.9) Active confirmed Problem 5693330 Lumbosacral radiculopathy (M54.17) Active confirmed Problem [id number] Status post below-knee amputation of right lower 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) Active confirmed Problem Long-term current use of drug therapy (597026980) Analgesic use (Z79.899) Active confirmed Problem Localized, secondary osteoarthritis of the ankle and/or foot (290665475) Post-traumatic arthritis of ankle, right (M19.171) Active confirmed Problem [id number] Avascular necrosis of right talus (M87.071) Active confirmed Vital Signs Heart Rate 102 /min 07/17/2024 Respiratory Rate 18 /min 06/24/2024 Oximetry 96 % 07/17/2024 Blood pressure diastolic 100 mm Hg 07/17/2024 Height-cm 190.5 cm 07/23/2024 Weight-kg 120.2 kg 07/23/2024 Height 75 in 07/23/2024 Blood pressure systolic 152 mm Hg 07/17/2024 Weight 265 lbs 07/23/2024 BMI 33.12 kg/m2 07/23/2024 Encounters Encounter Location Date Provider Diagnosis [facility] [place] [address] [place] [id number] 05/19/2024 Sangeeta barry Chronic pain syndrome G89.4 ; Lumbosacral radiculopathy M54.17 ; 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 ; Myalgia M79.10 ; Pain in right ankle and joints of right foot M25.571 ; Avascular necrosis of right talus M87.071 and Analgesic use Z79.899 [facility] [address] [place] [address] 06/05/2024 aFisal Johnson 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 ; Neuropathic pain of right foot M79.2 ; Encounter for preprocedural laboratory examination Z01.812 and Encounter for other preprocedural examination Z01.818 [facility] [address] [place] [address] 06/11/2024 Faisal Johnson [facility] [address] [place] [address] 06/15/2024 Faisalarmando Tamayoeder Status post below knee amputation of right lower extremity Z89.511 [facility] [place] [address] [place] [address] 06/23/2024 Sangeeta barry Chronic pain syndrome G89.4 ; Lumbosacral radiculopathy M54.17 ; 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 ; Myalgia M79.10 ; Pain in right ankle and joints of right foot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
--- NOTE | 2024-10-14 20:38 | W.ED.EXTPRO ---
HPI - Extremity Problem General: Chief complaint: Extremity Problem,Nontraumatic Stated complaint: prostisis pain Time Seen by Provider: 10/14/24 19:42 History of Present Illness: 48yo male presents with right stump pain. Patient reports that he received his new prosthetic leg today and has been walking on it. Reports significant discomfort to the right stump that started this afternoon. Patient states this is his first prosthetic and that he is 4 months out of right foot amputation. Patient reports he plans to contact his [facility] doctor tomorrow to discuss medications to help with the pain as he is getting used to his prosthesis. He denies any fall or injury. Associated symptoms: Deny fever(s) Related Data Home Medications ?Medication ?Instructions ?Recorded ?Confirmed venlafaxine 225 mg tablet,extended 225 mg PO QAM 09/11/23 06/18/24 release 24 hr cyclobenzaprine 10 mg tablet 10 mg PO TID 06/18/24 06/18/24 Previous Rx's ?Medication ?Instructions ?Recorded hydrocodone 5 mg-acetaminophen 325 1 tab PO Q8H PRN pain #15 tabs 10/14/24 mg tablet Allergies Allergy/AdvReac Type Severity Reaction Status Date / Time atomoxetine (From Strattera) Allergy ADR-Shakine Verified 10/14/24 19:36 ss escitalopram (From Lexapro) Allergy Unknown Verified 10/14/24 19:36 Review of Systems Const: Denies: fever(s), chills or body aches Musc: Reports: extremity pain (Right stump) [facility] ED PFSH: Medical History (Updated 08/22/24 @ 00:00 by JANICE Lilly) Sepsis Post-operative infection Post-operative pain Post-operative pain Alcohol abuse No significant past medical history Surgical History (Updated 08/15/24 @ 10:34 by Sandra Mehta MD) No significant past surgical history Physical Exam Const: COMMON NORMALS: no acute distress, patient oriented x3 and alert GENERAL APPEARANCE: cooperative ORIENTATION/CONSCIOUSNESS: Yes awake OTHER: Patient is ambulatory to vertical flow unassisted. He is sitting upright in the recliner in no acute distress. He is able to give history with no difficulty. He is interactive with exam appropriately. No family at bedside HENMT: COMMON NORMALS: normocephalic and atraumatic HEAD & SCALP: normocephalic and atraumatic Chest: CHEST: Yes Symmetrical chest wall rise Resp: COMMON NORMALS: normal respiratory effort EFFORT & INSPECTION: Yes able to speak in complete sentences Extremity: RIGHT LOWER EXTREMITY: Yes lower leg (BKA. Mild tenderness with palpation) Neuro: COMMON NORMALS: patient oriented x3 SENSORIUM/ORIENTATION: Yes alert Psych: COMMON NORMALS: cooperative Course Vital Signs: Vital signs: Vital Signs Temperature 98.0 F 10/14/24 19:31 Pulse Rate 96 10/14/24 20:48 Blood Pressure 162/86 10/14/24 20:48 Pulse Oximetry 95 10/14/24 20:48 Oxygen Delivery Me thod Room Air 10/14/24 19:31 MDM - Extremity (Nontraumatic) Medical Decision Making 48yo male presents with right stump pain. Patient reports that he received his new prosthetic leg today and has been walking on it. Reports significant discomfort to the right stump that started this afternoon. Patient states this is his first prosthetic and that he is 4 months out of right foot amputation. Patient reports he plans to contact his [facility] doctor tomorrow to discuss medications to help with the pain as he is getting used to his prosthesis. He denies any fall or injury. Patient is nontoxic in appearance. Vital signs are stable. Right BKA 4 months ago. First prosthesis today. Patient has been ambulating on the prosthesis since he received it and is now having increased pain to the stump area. States it is a pressure type pain. He denies any other injury or concern at this time. Patient does have full range of motion of the right lower leg. Patient did receive hydrocodone in the emergency department and a prescription of 14 were sent to patient's pharmacy to use sparingly. Advised that the pain should be his guide to his activity level with the prosthesis. Recommend patient contact primary care in the next 1 to 2 days with an update and to discuss a recheck. Return precautions provided. Patient states understanding and has no further questions or concerns at this time. Medical Records I reviewed the patient's medical records. No radiology studies performed this visit Discharge Plan Discharge Patient Disposition: Home Condition: Stable Prescriptions: New hydrocodone-acetaminophen 5-325 mg tablet 1 tab PO Q8H PRN (Reason: pain) Qty: 15 0RF Discontinued hydrocodone-acetaminophen 5-325 mg tablet 1 tab PO Q8H PRN (Reason: pain) Qty: 20 0RF hydrocodone-acetaminophen 5-325 mg tablet 1 tab PO Q6H PRN (Reason: pain) Qty: 14 0RF No Action venlafaxine 225 mg Tablet Extended Release 24hr 225 mg PO QAM cyclobenzaprine 10 mg tablet 10 mg PO TID Discharge Orders: Discharge ED (Routine); Ordered 10/14/24 Ordered By: Alexei Dominique Referrals: Juwan Mishra APRN [Primary Care Provider, Nurse Practitioner] Patient Instructions: Opioid Safety, Pain Management, Patient Portal & Jodie Instructions Activity Restrictions/Additional Instructions: Continue to slowly increase your activity level. Use the pain medication sparingly as increased pain will help you to know when you need to rest Follow-up with your doctor, call in the next 2 days with an update and to discuss recheck Return to the emergency department as needed Print Language: Ukrainian Coding Level of Care Code ED Plant Controls Specialist for Chris Georges
[2024-10-14 20:48] VITALS: BP 162/86; PULSE 96; O2SAT 95
== END 2024-10-14 20:50 | disposition home or self-care (01) ==
PROVIDERS: Emergency Provider Nurse Practitioner; PCP Nurse Practitioner Family
DX: T87.89 Other complications of amputation stump (principal)
CPT/HCPCS: 99283

== ENCOUNTER 2024-10-20 18:16 | Emergency (ER) | payer OTHER, SELFPAY ==
--- OUTSIDE RECORDS SUMMARY | 2024-10-08 05:00 | XMS_ITS | Encounter Summary ---
Author Name [facility] [place] [facility] [place] Address [address] [place] [address] Care Team Providers Care Director Of Hospitality Name Role Phone TAMARA VALENCIA Primary Care [...] section includes the information on record at [place] for the Encounter. Date/Time Encounter Type Encounter Description Reason Provider Source Oct 08, 2024 10:00 AM SYNCH AUDIO-VIDEO EST [place] [facility] ICD-10-CM G54.6 Phantom limb syndrome with pain HERMILO COKER Ros[place] Encounter Template Text not used by [place] Assessments - Encounter Diagnoses This section includes the primary and secondary diagnoses documented for the Encounter. Date/Time Primary/Secondary Diagnosis Diagnosis Name Provider Source Oct 08, 2024 10:31 AM PRIMARY Phantom limb syndrome with pain HERMILO COKER [facility] Plan of Treatment: Future Appointments (+ [...] 20 appointments. The data comes from all [place] treatment facilities. Appointment Date/Time Appointment Type Appointme nt Facility Name Oct 12, 2024 02:00 PM AMBULATORY - PSYCHIATRY [facility] Oct 20, 2024 10:30 AM AMBULATORY - REHAB MEDICIN E [facility] Oct 28, 2024 01:00 PM AMBULATORY - PSYCHIATRY NO [facility] Nov 13, 2024 01:00 PM AMBULATORY - PS[place]CHIATRY [place] [facility] Feb 08, 2025 11:00 AM AMBULATORY - REHAB MEDICIN [facility] Feb 08, 2025 11:05 AM AMBULATORY - REHAB MEDICIN E [facility] Feb 25, 2025 09:00 AM AMBULATORY - NONE [facility] Advance Directives: All historical and current Section Date Range: From patient's date of to the date document was created. This section includes ALL of a patient's completed or amended [place] Advance and Rescinded Directives. The entries below indicate that a directive exists for the patient, but an actual copy is not included with this document. The data comes from all [facility]. Date Advance Directives Provider Source Jul 30, 2016 ADVANCE DIRECTIVE DISCUSSION [facility] Encounter Notes: All associated encounter notes This section contains the clinical notes associated to the Encounter. Date/Time Encounter Note(s) Provider Source Oct 08, 2024 09:39 AM PHARMACY EDUCATION NOTE: LOCAL TITLE: RX CLINICAL PHARMACY PAIN MANAGEMENT STANDARD TITLE: PHARMACY EDUCATION NOTE DATE OF NOTE: OCT 08, 2024@09:39 ENTRY DATE: OCT 08, 2024@09:39:31 AUTHOR: JOHANA LOO COSIGNER: URGENCY: STATUS: COMPLETED INTERDISCIPLINARY TELEPAIN TEAM Pharmacy Note YAJAIRA SMITH is a 48 y/o seen for follow-up evaluation with Interdisciplinary TelePain team. Hermilo Wu MD, also present for evaluation. Last seen 09/08 at which time the following was done: -Recommend increasing pregabalin to 100mg BID -Recommend trial of Butrans 7.5mcg/hr changed q7days -Trial lidocaine patches applied to residual limb stump -Continue methocarbamol 750mg BID -Refer to pain psychology; scheduled 10/12 S/ Rates pain 09/15 at present. Reports that he had trial with prosthesis and anticipates more pain as he adjusts to this. Gets his prosthetic on Saturday. MEDICATION RECONCILLIATION [employer] reports difficulty with adhesion, euphoria when he initially placed, sedation and no pain reduction w/ Butrans. Used all 4 patches as prescribed; placed last patch on Saturday. Taking pregabalin 100mg BID w/o side effects. No relief whatsoever w/ lidocaine patches. Currently taking methocarbamol 750mg BID w/o side effects and no muscle spasms recently. Prescribed venlafaxine 225mg/day by . Reviewed previous opioid medication trials again: -codeine/apap -fentanyl 25mcg/hr patch (2011-03) -hydrocodone/apap (, recent short supplies post-BKA) -methadone (ASUNCION: depression) -oxycodone (2011, recent short supplies post-BKA): >> oxycontin in early turned him into a babbling idiot >> 50% reduction in pain but relief didnt last btwn doses >> tiredness and constipation -morphine: caused nausea when he received as an injection -tramadol (x1 rx 2011): no benefit previously, trialed to get off oxycodone Pain hx: [employer] w/ hx of talus fracture 20 years [...] are intermittent a few times per day. Not having muscle spasms at the time. Surgical site is tender but not painful, additionally has phantom/ ghost pains of leg itching and foot burning but this is minimally bothersome compared to the screaming pain . Medication hx: He was seeing [facility] for his ankle and low back pain and they provided numerous short supply opioid scripts post-op per PDMP. He was taking oxycodone every 4-6 hours w/ pain reduced by ~50% but relief did not last btwn doses. States he took it as prescribed by [facility] but he stopped going there [...] asked the pharmacy to rip up hardcopy. Surg hx: appendectomy, R index & middle finger amputation & reattachment, [...] EVERY DAY Indication: FOR WOUND CARE 2) LIDOCAINE 5% PATCH APPLY 3 PATCH 5% TO AFFECTED AREA EVERY ACTIVE DAY AT 9:00 A.M. LEAVE ON FOR ONLY 12 HOURS IN A 24 HOURS PERIOD Indication: FOR PAIN 3) LISINOPRIL 20MG TAB TAKE ONE TABLET [...] SECOND DOSE. Indication: FOR OPIOID OVERDOSE 6) PREGABALIN 100MG ORAL CAP TAKE ONE CAPSULE BY MOUTH TWICE A ACTIVE DAY Indication: FOR NERVE PAIN 7) SUMATRIPTAN SUCCINATE 25MG TAB TAKE ONE TABLET BY MOUTH ACTIVE EVERY DAY NEEDED DIRECTED FOR MIGRAINE. IF NOT BETTER IN 2 HOURS MAY REPEAT DOSE TIMES 1. Indication: FOR MIGRAINE HEADACHE 8) TAMSULOSIN HCL 0.4MG CAP TAKE TWO CAPSULES BY MOUTH AT ACTIVE (S) BEDTIME Indication: FOR BPH 9) VENLAFAXINE HCL 75MG 24HR SA CAP TAKE THREE CAPSULES BY ACTIVE MOUTH EVERY DAY Indication: FOR MOOD/ANXIETY PERTINENT PAST MEDICATIONS TRIALED 1. OPIOIDS: -codeine/apap -fentanyl 25mcg/hr patch (2011-03) -hydrocodone/apap () -methadone (ASUNCION: depression) -oxycodone (2003-10, 2011, recent short supplies post-BKA): >> oxycontin in early turned him into a babbling idiot >> 50% reduction in pain but relief didn't last btwn doses >> tiredness and constipation -morphine: caused nausea when he received as an injection -tramadol (x1 rx 2011): no benefit previously, trialed to get off oxy 2. NSAIDS: diclofenac, ibuprofen, meloxicam, naproxen 3. TOPICALS: diclofenac gel 4. GABAPENTINOIDS: gabapentin up to 1800mg/day, pregabalin 75mg BID >> he d/c'd gabapentin despite benefit due to his nephew experiencing side effects on it and his own weight gain >> he feels that pregabalin works just as well 5. ANTIDEPRESSANTS: 6. MUSCLE RELAXANTS: cyclobenzaprine, methocarbamol, tizanidine 7. OTHER: apap Problem List: Bipolar disorder F31.9 11/25/2023 JULIETA CONNORS Sepsis caused by Staphylococcus aur 11/11/2023 ASIM LOZANO Exposure to potentially hazardous s 07/24/2023 ISAIAS ALCANTARA Aseptic necrosis of bone M87.9 11/10/2022 TAMARA VALENCIA Severe Recurrent Major Depression w 10/18/2022 CATALINO TALAMANTES Alcohol Abuse ([facility] [id number]) F10.10 10/18/2022 CATALINO TALAMANTES Tobacco User ([facility] [id number]) Z72.0 10/18/2022 CATALINO TALAMANTES Insomnia ([facility] [id number]) G47.00 10/18/2022 CATALINO TALAMANTES Osteoarthritis 715.90 05/29/2012 [...] 11/15/23 w/ UDS on 11/18/23 +opiates and +bor. Possibly got non-VA rx causing this result [...] duplication of therapy, and drug/drug interactions. Currently utilizing Butrans 7.5mcg/hr, pregabalin 100mg BID, methocarbamol 750mg BID and venlafaxine 225mg daily from . Recommend d/c Butrans d/t side effects and no benefit, also d/c lidocaine patches bc no benefit. Educated patient that w/ previous use of tramadol, it may not have been beneficial relative to previous oxycodone dose but now that he has been on lower opioid doses and given nature of current pain complain tramadol trial is reasonable. Agree w/ use of pregabalin and SNRI; may optimize dose of pregabalin further in the future. PLAN: -Recommend 14-day trial of tramadol 100mg BID -D/c Butrans -D/c lidocaine patches -Continue pregabalin 100mg BID, methocarbamol 750mg BID and venlafaxine 225mg daily from -Scheduled for pain psych next week F/u 2 weeks Future considerations: tapentadol, titrate pregabalin, ketamine, update UDS, biofeedback/hypnosis Plan was formulated and discussed with [...] POLYPHARMACY REVIEW used in this patient's assessment. PBM PharmD Pharmacotherapy Rem V12: PHARMACIST INTERVENTIONS: PAIN MANAGEMENT Medication Intervention(s) Non-opioid pain medication intervention(s) Medication monitoring, no dosage change required, continue to monitor and assess Opioid pain medication intervention(s) Discontinue and/or change to a different medication /es/ Johana Loo PharmD, [facility] Clinical Pharmacy Practitioner, [facility] Signed: 10/08/2024 12:47 JOHANA LOO [facility] Oct 08, 2024 08:31 AM ACCOUNTING OF DISCLOSURES NOTE: LOCAL TITLE: STATE PRESCRIPTION DRUG MONITORING PROGRAM STANDARD TITLE: ACCOUNTING OF DISCLOSURES NOTE DATE OF NOTE: OCT 08, 2024@08:31:19 ENTRY DATE: OCT 08, 2024@08:31:19 AUTHOR: IMELDA COKER EXP COSIGNER: URGENCY: STATUS: COMPLETED This PDMP query was submitted by Hermilo Coker MD. The clinical justification for this PDMP query is to review controlled substances prescribed outside of the [facility], and any additional information that may become available, as an important component of standard clinical care, and in accordance with [facility] policy. Patient information was shared with the PDMP [facility]. Prescription(s) filled outside the [facility] in the last 90 days are noted. However, they do not raise significant safety concerns and do not influence the treatment plan at this time. 09/16/2024 1 09/08/2024 Pregabalin 100 Mg Capsule 60.00 30 Je Tat [id number] [facility] ([id number]) 0 /[place] 09/09/2024 1 09/08/2024 Buprenorphine 7.5 Mcg/hr Patch 4.00 28 Je Tat [id number] [facility] (5685) 0 0.18 mg /[place] 08/22/2024 2 08/22/2024 Hydrocodone-Acetamin 5-325 Mg 8.00 2 Si Sma [id number] [facility] (7384) 0 20.00 MME Private Pay [place] 08/15/2024 2 08/15/2024 Hydrocodone-Acetamin 5-325 Mg 20.00 6 Da Kin [id number] [facility] (4260) 0 16.67 MME [place] 08/03/2024 4 08/02/2024 Hydrocodone-Acetamin 5-325 Mg 14.00 3 Em Sex [id number] Mis (0350) 0 23.33 [place] 07/23/2024 4 07/23/2024 Hydrocodone-Acetamin 5-325 Mg 14.00 3 Em Sex [id number] Mis (0350) 0 23.33 [place] 07/21/2024 4 07/21/2024 Oxycodone-Acetaminophen 10-325 12.00 3 Ir Liliam [id number] Mis (0350) 0 60.00 [place]ME [place] 07/21/2024 1 07/09/2024 Pregabalin 75 Mg Capsule 60.00 30 Ma Melvin [id number] Eric ([id number]) 0 /[place] 07/14/2024 4 07/13/2024 Oxycodone-Acetaminophen 10-325 28.00 7 Ma Melvin [id number] Mis (0350) 0 60.00 MME [place] 07/09/2024 4 07/09/2024 Oxycodone-Acetaminophen 10-325 28.00 7 Ma Melvin [id number] Mis (0350) 0 60.00 [place] 06/25/2024 3 06/24/2024 Oxycodone-Acetaminophen 10-325 28.00 7 Ma Melvin [id number] [facility] (0728) 0 60.00 MME [place] 06/24/2024 1 06/23/2024 Oxycodone-Acetaminophen 10-325 64.00 16 Ma Melvin [id number] Eric (8094) 0 60.00 MME /[place] 06/24/2024 1 06/23/2024 Pregabalin 75 Mg Capsule 32.00 16 Ma Melvin [id number] [facility] (3284) 0 /[place] 06/13/2024 3 06/13/2024 Oxycodone-Acetaminophn 7.5-325 60.00 10 Ti Sin [id number] [facility] (6885) 0 67.50 MME [place] 06/12/2024 3 06/12/2024 Hydromorphone 4 Mg Tablet 40.00 5 Ed Alex [id number] [facility] (3801) 0 160.00 MME [place] 04/02/2024 3 04/01/2024 Hydrocodone-Acetamin 5-325 Mg 10.00 2 Ko Pog [id number] [facility] (5847) 0 25.00 MME [place] 11/15/2023 1 11/15/2023 Oxycodone-Acetaminophen 5-325 10.00 10 Ho Meche [id number] [facility] (0214) 0 7.50 MME /[place] 09/11/2023 3 09/11/2023 Clonazepam 1 Mg Tablet 7.00 3 Ko Pog [id number] [facility] (4228) 0 Private Pay [place] /es/ HERMILO WU STAFF PHYSICIAN Signed: 10/08/2024 10:59 HERMILO COKER [facility] Oct 08, 2024 08:23 AM PHYSICAL MEDICINE REHAB NOTE: LOCAL TITLE: TELEPAIN NOTE STANDARD TITLE: PHYSICAL MEDICINE REHAB NOTE DATE OF NOTE: OCT 08, 2024@08:23 ENTRY DATE: OCT 08, 2024@08:23:17 AUTHOR: IMELDA COKER EXP COSIGNER: URGENCY: STATUS: COMPLETED TELEPAIN NOTE Has ADDENDA Patient indentity verified by full name, social security and date of . INTERDISCIPLINARY TELEPAIN TEAM FOLLOW UP --This note is dictated using Dragon voice to text, it may contain typographical errors. PLEASE DISCUSS WITH COLLABORATING PHYSICIAN IF APPLICABLE. RECOMMENDATIONS ARE MADE BY TELEPAIN TEAM PER TELEPAIN CONSULT. PACT TEAM TO REVIEW RECOMMENDATIONS AND DECIDE IF IN AGREEMENT AND WISHING TO PROCEED WITH THEM. [employer] seen for follow up evaluation with Interdisciplinary TelePain team. Hermilo Wu MD & Johana JacksonD present for evaluation. Time in session: 40 minutes Modality:vvc Patient's address during session: consistent with CPRS Patient?s telephone number: consistent with [employer] Emergency contact name/phone number: consistent with [employer] National Emergency Services Phone Numbers: - Activate 917 services (EMERGENCY USE ONLY): call [phone] with current address of patient, agent can put provider in touch with mud cleaner operator for patient's location - [facility] Crisis Line: 988 & press 1 or text [phone] - [facility] [employer] Telehealth Technology Help Desk (NTTHD): [phone] or [phone] INFORMED CONSENT: VVC: has been educated about the risks and benefits of clinical video telehealth. [employer] has provided verbal consent to use VVC for their appointment today and for their appointment to take place outside of the [facility]. states they are in a safe and private environment suitable for the Telehealth encounter. has been informed of limits to confidentiality. Phone: was educated about the risks and benefits of telephone care. has provided verbal consent to use telephone for their appointment today and for their appointment to take place outside of the [facility]. states they are in a safe and [...] osteoarthritis, male hypogonadism and erectile dysfunction. Reports no benefit for the pain, caused drowsiness/difficulty with adhesion. Morphine: caused nausea when he received as an injection. Reports that he got trial with prosthesis and was limited by pain. Reports that in the past he trialed tramadol to get off oxycontin and it didnot address his pain. Educated patient that this is a big dose decrease for which it made sense that it didn't control his pain at that moment. Since now he is on a lower dose/tramadol trial is reasonable. Reports that he is seeing a doctor in [place]. He got out of the service due [...] after amputation. He was seeing someone in [facility] for his low back. Reports bad sciatic problems but when he stands up and has to transfers he has to put all his weight on his left leg. Wheelchair bound currently. Reports that the pain is different location and different than where it was prior to surgery. Reports pain is on the location where amputation. Pain currently 10/15. Per referral note per PMR SPT physician [...] BKA. Date of amputation: June 11, 2024. Surgical history: appendectomy, Rt. BKA, rt index [...] BID Consider biofeedback/hyponosis as whole health alternatives. RECOMMEND TO PACT TEAM: Recommend discontinuing buprenorphine patch. Trial of Tramadol 100 mg two times a day as needed. Will call patient on the 20 of October to f/up via telephone. PLEASE DISCUSS WITH COLLABORATING PHYSICIAN IF APPLICABLE. [...] Review Essential Medication List for Review with [facility]/[place] was used to complete this medication review. A written medication list was provided and reviewed with the patient/caregiver. ESSENTIAL MED LIST: Remote and Local Allergies: FACILITY ALLERGY/ADR -------- [facility] ATOMOXETINE [facility] LEXAPRO [facility] METHADONE [facility] MORPHINE CLNCL/HLTH [place] REPT EFF [id number] ESCITALOPRAM [facility] ESCITALOPRAM [facility] METHADONE [facility] MORPHINE [facility] ESCITALOPRAM [facility] METHADONE [facility] MORPHINE <<<<< Active Outpatient Medications (including Supplies): Active Outpatient Medications Status 1) BUPRENORPHINE 7.5MCG/HR PATCH APPLY 1 PATCH TO SKIN EVERY 7 ACTIVE DAYS DIRECTED Indication: FOR CHRONIC PAIN 2) DRESSING,HONEY TOP GEL APPLY 1 SMALL AMOUNT TO AFFECTED AREA ACTIVE EVERY DAY Indication: FOR WOUND CARE 3) LIDOCAINE 5% PATCH APPLY 3 PATCH 5% TO AFFECTED AREA EVERY ACTIVE DAY AT 9:00 A.M. LEAVE ON FOR ONLY 12 HOURS IN A 24 HOURS PERIOD Indication: FOR PAIN 4) LISINOPRIL 20MG TAB TAKE ONE TABLET BY MOUTH EVERY DAY ACTIVE Indication: FOR HIGH BLOOD PRESSURE 5) METOPROLOL TARTRATE 25MG TAB TAKE ONE-HALF TABLET BY MOUTH ACTIVE TWICE A DAY Indication: FOR HIGH BLOOD PRESSURE 6) NALOXONE HCL 4MG/SPRAY SOLN NASAL SPRAY SPRAY 1 SPRAY IN ACTIVE NOSE NEEDED IF PERSON DOES NOT START BREATHING IN 2-3 MINUTES, GIVE SECOND DOSE. Indication: FOR OPIOID OVERDOSE 7) PREGABALIN 100MG ORAL CAP TAKE ONE CAPSULE BY MOUTH TWICE A ACTIVE DAY Indication: FOR NERVE PAIN 8) SUMATRIPTAN SUCCINATE 25MG TAB TAKE ONE TABLET BY MOUTH ACTIVE EVERY DAY NEEDED DIRECTED FOR MIGRAINE. IF NOT BETTER IN 2 HOURS MAY REPEAT DOSE TIMES 1. Indication: FOR MIGRAINE HEADACHE 9) TAMSULOSIN HCL 0.4MG CAP TAKE TWO CAPSULES BY MOUTH AT ACTIVE (S) BEDTIME Indication: FOR BPH 10) VENLAFAXINE HCL [...] 3) CODEINE 30/ACETAMINOPHEN 300MG TAB Qty: 12 DISCONTINUED Issue: 06/05/24 for 3 days Sig: TAKE [...] FOR SLEEP 6) GABAPENTIN 300MG CAP Qty: 30 for [...] 10MG/APAP 325MG TAB Qty: 64 for 16 DISCONTINUED Issue: 06/23/24 days Sig: TAKE 1 TABLET [...] 07/24/24 Indication: FOR BPH Expr : 08/21/24 18) VENLAFAXINE HCL 75MG 24HR SA CAP [...] another approved/reconciled medication list would be in [facility] under the appointment list. /ben/ HERMILO WU STAFF PHYSICIAN Signed: 10/08/2024 11:00 Receipt Acknowledged By: 10/20/2024 07:44 /es/ TAMARA VALENCIA ECONOMIC ADVISER 10/08/2024 ADDENDUM STATUS: COMPLETED RECOMMEND TO PACT TEAM: Recommend discontinuing buprenorphine patch. Trial of Tramadol 100 mg two times a day as needed. Will call patient on the 20 of October to f/up via telephone. PLEASE DISCUSS WITH COLLABORATING PHYSICIAN IF APPLICABLE. RECOMMENDATIONS ARE MADE BY TELEPAIN TEAM PER TELEPAIN CONSULT. PACT TEAM TO REVIEW RECOMMENDATIONS AND DECIDE IF IN AGREEMENT AND WISHING TO PROCEED WITH THEM (CONTROLLED SUBSTANCES ARE NOT PRESCRIBED BY TELEPAIN TEAM). /ben/ HERMILO WU STAFF PHYSICIAN Signed: 10/08/2024 11:00 HERMILO COKER [facility]
--- OUTSIDE RECORDS SUMMARY | 2024-10-15 04:09 | XMS_ITS | Encounter Summary ---
Author Name [facility] [place] [facility] [place] [facility] [place] Address [address] [place] [address] Care Team Providers Care Youth Care Professional Name Role Phone DONTA BAIRES Primary Care [...] section includes the information on record at [place] for the Encounter. Date/Time Encounter Type Encounter Description Reason Provider Source Oct 15, 2024 09:09 AM Outpatient Encounter COMMUNITY CARE CONSULT CLEMENTE MOBLEY Rosibel Encounter Template Text not used by [place] Plan of Treatment: Future Appointments (+ 6 months) and Future Tests (+/- 45 days) The Plan of Treatment section includes future care activities for the patient from all [place] treatmentfacilities. This section includes future appointments and future orders which are active, pending or scheduled. Future Appointments This section includes appointments that were scheduled to occur 6 months from the date of the Encounter, up to a maximum of 20 appointments. The data comes from all [place] treatment facilities. Appointment Date/Time Appointment Type Appointme nt Facility Name Oct 20, 2024 10:30 AM AMBULATORY - REHAB MEDICIN E [facility] Oct 28, 2024 01:00 PM AMBULATORY - PSYCHIATRY NO [facility] Nov 13, 2024 01:00 PM [facility] [place] [facility] [facility] [facility] Feb 08, 2025 11:00 AM AMBULATORY - [facility] Feb 08, 2025 11:05 AM AMBULATORY - RE[place]AB MEDICIN [place] [facility] Feb 25, 2025 09:00 AM AMBULATORY - NONE [facility] Advance Directives: All historical and current Section Date Range: From patient's date of to the date document was created. This section includes ALL of a patient's completed or amended [place] Advance and Rescinded Directives. The entries below indicate that a directive exists for the patient, but an actual copy is not included with this document. The data comes from all [place] facilities. Date Advance Directives Provider Source Jul 30, 2016 ADVANCE DIRECTIVE DISCUSSION DOUG CASH [facility] Encounter Notes: All associated encounter notes This section contains the clinical notes associated to the Encounter. Date/Time Encounter Note(s) Provider Source Oct 14, 2024 07:35 PM NONVA NOTE: LOCAL TITLE: COMMUNITY CARE-PAULETTE SELF PRESENTING CARE COORD PLAN STANDARD TITLE: NONVA NOTE DATE OF NOTE: OCT 14, 2024@19:35 ENTRY DATE: OCT 15, 2024@09:09:51 AUTHOR: CLEMENTE MOBLEY EXP COSIGNER: URGENCY: STATUS: COMPLETED COMMUNITY CARE-PAULETTE SELF PRESENTING CARE COORD PLAN [id number] PB Has ADDENDA Emergency Notification Intake Date Presenting to the Facility: 10/14/2024 07:23 PM Method of Contact: Provider Notification ID: [id number] [facility] Referral #: Portal Generated Hospital: [facility] City: [place] State: [place] Chief complaint: prosthesis pain Medical Decision Making 48yo male presents with right stump pain. Patient reports that he received his new prosthetic leg today and has been walking on it. Reports significant discomfort to the right stump that started this afternoon. Patient states this is his first prosthetic and that he is 4 months out of right foot amputation. Patient reports he plans to contact his [facility] doctor tomorrow to discuss medications to help with the pain as he is getting used to his prosthesis. He denies any fall or injury. Patient is nontoxic in appearance. Vital signs are stable. Right BKA 4 months ago. First prosthesis today. Patient has been ambulating on the prosthesis since he received it and is now having increased pain to the stump area. States it is a pressure type pain. He denies any other injury or concern at this time. Patient does have full range of motion of the right lower leg. Patient did receive hydrocodone in the emergency department and a prescription of 14 were sent to patient's pharmacy to use sparingly. Advised that the pain should be his guide to his activity level with the prosthesis. Recommend patient contact primary care in the next 1 to 2 days with an update and to discuss a recheck. Return precautions provided. Patient states understanding and has no further questions or concerns at this time. Patient Disposition: Home Condition: Stable Prescriptions: New hydrocodone-acetaminophen 5-325 mg tablet 1 tab PO Q8H PRN (Reason: pain) Qty: 15 0RF Discontinued hydrocodone-acetaminophen 5-325 mg tablet 1 tab PO Q8H PRN (Reason: pain) Qty: 20 0RF hydrocodone-acetaminophen 5-325 mg tablet 1 tab PO Q6H PRN (Reason: pain) Qty: 14 0RF Activity Restrictions/Additional Instructions: Continue to slowly increase your activity level. Use the pain medication sparingly as increased pain will help you to know when you need to rest Follow-up with your doctor, call in the next 2 days with an update and to discuss recheck Return to the emergency department as needed (ED Provider: MOMO Tovar) [facility] ([id number]) PACT: [facility] PACT 01 (Focus: Primary Care Only) Primary Care Provider: TAMARA VALENCIA PHONE:[phone] Dot Compliance Specialist: WILFRID VYAS PHONE:[phone] Clinical Associate: TIM GONZALEZ PHONE:[phone] Episode of care complete: [facility] and to PACT via cure/encrypted email. /ben/ CLEMENTE LAZO RN Signed: 10/15/2024 09:15 10/14/2024 ADDENDUM STATUS: COMPLETED VistA Imaging Scanned Document - Addendum. [facility] SCANNED DOCUMENT SIGNATURE NOT REQUIRED Electronically Filed: 10/15/2024 by: RINA Domingo [facility] CLEMENTE MOBLEY BLDOROTHEA BOWSER [facility]
--- OUTSIDE RECORDS SUMMARY | 2024-10-15 06:58 | XMS_ITS | Encounter Summary ---
Author Name [facility] [place] [place] Organization [place] Address [address] [place] [address] Care Team Providers Care Signal Helper Name Role Phone TAMARA VALENCIA Primary Care [...] Type Encounter Description Reason Pro vider Source Oct 15, 2024 11:58 AM Outpatient Encounter ADMIN PAT ACTIVTIES (MASNONCT) E Encounter Template Text not used by [place] Plan of Treatment: Future Appointments (+ 6 months) and Future Tests (+/- 45 days) The Plan of Treatment section includes future care activities for the patient from all [place] treatmentfacilities. This section includes future appointments and [...] 10:30 AM AMBULATORY - REHAB MEDICIN E [facility] Oct 28, 2024 01:00 PM AMBULATORY - PSYCHIATRY NO [facility] [place] Nov 13, 2024 01:00 PM [facility] [place] [facility] Feb 08, 2025 11:00 AM AMBULATORY - REHAB MEDICIN E [facility] Feb 08, 2025 11:05 AM AMBULATORY - REHAB MEDICIN E [place] [facility] Feb 25, 2025 09:00 AM AMBULATORY - NONE [facility] Advance Directives: All historical and current [...] ADVANCE DIRECTIVE DISCUSSION DOUG CASH [facility] Encounter Notes: All associated encounter notes This section contains the clinical notes associated to the Encounter. Date/Time Encounter Note(s) Provider Source Oct 15, 2024 12:12 PM ADDENDUM: LOCAL TITLE: Addendum STANDARD TITLE: ADDENDUM DATE OF NOTE: OCT 15, 2024@12:12:55 ENTRY DATE: OCT 15, 2024@12:12:55 AUTHOR: AJAY LOU COSIGNER: URGENCY: STATUS: COMPLETED WANTED TO RELAY MESSAGE TO DR MARIN POST FITTING OF PROSTHETIC. STATES HIS PAIN IS AN 8 OR 9 ON A 10 SCALE. HE DESCRIBED THE PAIN AT THE SURGICAL SITE THAT RADIATES UP HIS LEG. /ben/ AJAY LOU RN Signed: 10/15/2024 12:18 Receipt Acknowledged By: 10/19/2024 08:25 /ben/ HERMILO MARIN STAFF PHYSICIAN --- Original Document --- 10/15/24 TELEPHONE NOTE: VET CALLED TO SPEAK TO NURSE MARIELA TO DISCUSS AMPUTATION ISSUE PAIN. CONTACT #[phone] /ben/ MICHEAL MAXWELL Signed: 10/15/2024 12:03 Receipt Acknowledged By: 10/15/2024 12:19 /AJAY Gallardo RN [facility] Oct 15, 2024 11:58 AM TELEPHONE ENCOUNTE R NOTE: LOCAL TITLE: TELEPHONE NOTE STANDARD TITLE: TELEPHONE ENCOUNTER NOTE DATE OF NOTE: OCT 15, 2024@11:58 ENTRY DATE: OCT 15, 2024@11:59:03 AUTHOR: MICHEAL MA EXP COSIGNER: URGENCY: STATUS: COMPLETED TELEPHONE NOTE Has ADDENDA VET CALLED TO SPEAK TO NURSE MARIELA TO DISCUSS AMPUTATION ISSUE PAIN. CONTACT #[phone] /ben/ MICHEAL MAXWELL Signed: 10/15/2024 12:03 Receipt Acknowledged By: 10/15/2024 12:19 /ben/ AJAY LOU RN 10/15/2024 ADDENDUM STATUS: COMPLETED WANTED TO RELAY MESSAGE TO DR MARIN POST FITTING OF PROSTHETIC. STATES HIS PAIN IS AN 8 OR 9 ON A 10 SCALE. HE DESCRIBED THE PAIN AT THE SURGICAL SITE THAT RADIATES UP HIS LEG. /ben/ AJAY LOU RN Signed: 10/15/2024 12:18 Receipt Acknowledged By: * AWAITING SIGNATURE * HERMILO COKER DANNY [facility]
--- OUTSIDE RECORDS SUMMARY | 2024-10-19 10:24 | XMS_ITS | Encounter Summary ---
Author Name [facility] [place] Address [address] [place] [address] Care Team Providers Care Healthcare Sales Representative Name Role Phone TAMARA VALENCIA Primary Care [...] section includes the information on record at [place] for the Encounter. Date/Time Encounter Type Encounter Description Reason Pro vider Source Oct 19, 2024 03:24 PM Outpatient Encounter [facility]IC [facility] Encounter Template Text not used by [place] Plan of Treatment: Future Appointments (+ 6 months) and Future Tests (+/- 45 days) The Plan of Treatment section includes future care activities for the patient from all [place] treatmentfacilities. This section includes future appointments and future orders which are active, pending or scheduled. Future Appointments This section includes appointments that were scheduled to occur 6 months from the date of the Encounter, up to a maximum of 20 appointments. The data comes from all [place] treatment facilities. Appointment Date/Time Appointment Type Appointme nt Facility Name Oct 20, 2024 10:30 AM AMBULATORY - REHAB MEDICIN E [facility] Oct 28, 2024 01:00 PM AMBULATORY - PSYCHIATRY [place] Nov 13, 2024 01:00 PM [place] [facility] Feb 08, 2025 11:00 AM AMBULATORY - REHAB MEDICIN [facility] Feb 08, 2025 11:05 AM AMBULATORY - REHAB MEDICIN E [place] [facility] Feb 25, 2025 09:00 AM AMBULATORY - NONE [facility] Advance Directives: All historical and current Section Date Range: From patient's date of to the date document was created. This section includes ALL of a patient's completed or amended [place] Advance and Rescinded Directives. The entries below indicate that a directive exists for the patient, but an actual copy is not included with this document. The data comes from all [place] facilities. Date Advance Directives Provider Source Jul 30, 2016 ADVANCE DIRECTIVE DISCUSSION DOUG CASH [facility] Encounter Notes: All associated encounter notes This section contains the clinical notes associated to the Encounter. Date/Time Encounter Note(s) Provider Source Oct 20, 2024 07:00 AM ADDENDUM: LOCAL TITLE: Addendum STANDARD TITLE: ADDENDUM DATE OF NOTE: OCT 20, 2024@07:00:54 ENTRY DATE: OCT 20, 2024@07:00:54 AUTHOR: BUZZ BENNETT EXP COSIGNER: URGENCY: STATUS: COMPLETED Chart review performed. Per Dr. Wu previous addendum to note on 09/08/24 team to call on 10/20/24 (today) to discuss Buprenorphine patch. Will tag provider to alert. /ben/ BUZZ BENNETT RN Signed: 10/20/2024 07:02 Receipt Acknowledged By: 10/20/2024 07:35 /ben/ HERMILO WU STAFF PHYSICIAN * AWAITING SIGNATURE * JOHANA LOO R === --- Original Document --- 10/19/24 PM&RS TELEPHONE NOTE: Patient hasn't recieved new meds that Dr Wu was supposed to prescribe from 10/08. Can't remember name of med. [phone] /ben/ DANIEL MAXWELL Signed: 10/19/2024 15:25 Receipt Acknowledged By: 10/20/2024 06:56 /enio BENNETT RN 10/20/2024 ADDENDUM STATUS: COMPLETED correction note from 10/08/24 /enio BENNETT RN Signed: 10/20/2024 07:03 BUZZ BENNETT [facility] Oct 19, 2024 03:24 PM PHYSICAL MEDICINE REHAB TELEPHONE ENCOUNTER NOTE: LOCAL TITLE: PM&RS TELEPHONE NOTE STANDARD TITLE: PHYSICAL MEDICINE REHAB TELEPHONE ENCOUNTER NOTE DATE OF NOTE: OCT 19, 2024@15:24 ENTRY DATE: OCT 19, 2024@15:24:32 AUTHOR: DANIEL FLORES EXP COSIGNER: URGENCY: STATUS: COMPLETED PM&RS TELEPHONE NOTE Has ADDENDA Patient hasn't recieved new meds that Dr Wu was supposed to prescribe from 10/08. Can't remember name of med. [phone] /ben/ DANIEL MAXWELL Signed: 10/19/2024 15:25 Receipt Acknowledged By: 10/20/2024 06:56 /enio BENNETT RN 10/20/2024 ADDENDUM STATUS: COMPLETED Chart review performed. Per Dr. Wu previous addendum to note on 09/08/24 team to call on 10/20/24 (today) to discuss Buprenorphine patch. Will tag provider to alert. /enio BENNETT RN Signed: 10/20/2024 07:02 Receipt Acknowledged By: * AWAITING SIGNATURE * HERMILO COKER * AWAITING SIGNATURE * JOHANA LOO 10/20/2024 ADDENDUM STATUS: COMPLETED correction note from 10/08/24 /enio BENNETT RN Signed: 10/20/2024 07:03 DANIEL FLORES [facility]
--- OUTSIDE RECORDS SUMMARY | 2024-10-20 05:30 | XMS_ITS | Encounter Summary ---
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 Date/Time Primary/Secondary Diagnosis Diagnosis Name Provider Source Oct 20, 2024 09:31 AM PRIMARY Phantom limb syndrome with pain LADI GILMORE [facility] Plan of Treatment: Future Appointments (+ [...] 20 appointments. The data comes from all [place] treatment facilities. Appointment Date/Time Appointment Type Appointme nt Facility Name Oct 28, 2024 01:00 PM AMBULATORY - PS[facility]IATRY [facility] Nov 13, 2024 01:00 PM AMBULATORY - PSYCHIATRY [facility] Feb 08, 2025 11:00 AM AMBULATORY - REHAB MEDICIN E [facility] Feb 08, 2025 11:05 AM AMBULATORY - RE[facility] MEDICIN [facility] Feb 25, 2025 09:00 AM AMBULATORY - NONE [facility] Advance Directives: All historical and current [...] 2016 ADVANCE DIRECTIVE DISCUSSION DOUG CASH [facility] Encounter Notes: All associated encounter notes This section contains the clinical notes associated to the Encounter. Date/Time Encounter Note(s) Provider Source Oct 20, 2024 07:53 AM ACCOUNTING OF DISC LOSURES NOTE: LOCAL TITLE: STATE PRESCRIPTION DRUG MONITORING PROGRAM STANDARD TITLE: ACCOUNTING OF DISCLOSURES NOTE DATE OF NOTE: OCT 20, 2024@07:53:08 ENTRY DATE: OCT 20, 2024@07:53:08 AUTHOR: IMELDA GILMORE EXP COSIGNER: URGENCY: STATUS: COMPLETED This PDMP query was submitted by Ladi Gilmore MD. The clinical justification for this PDMP query is to review controlled substances prescribed outside of the [facility], and any additional information that may become available, as an important component of standard clinical care, and in accordance with [facility] policy. Patient information was shared with the PDMP [place]. Prescription(s) filled outside the [facility] in the last 90 days are noted. However, they do not raise significant safety concerns and do not influence the treatment plan at this time. 10/16/2024 1 10/08/2024 Tramadol Hcl 50 Mg Tablet 56.00 14 Ch H [id number] [facility] ([id number]) 0 40.00 MME /[place] 10/15/2024 2 10/14/2024 Hydrocodone-Acetamin 5-325 Mg 15.00 5 Mi And [id number] [facility] (9553) 0 15.00 MME [place] 10/12/2024 1 09/08/2024 Pregabalin 100 Mg Capsule 60.00 30 Je Tat [id number] [facility] ([id number]) 1 /[place] 09/16/2024 1 09/08/2024 Pregabalin 100 Mg Capsule 60.00 30 Je Tat [id number] [facility] ([id number]) 0 /[place] 09/09/2024 1 09/08/2024 Buprenorphine 7.5 Mcg/hr Patch 4.00 28 Je Tat [id number] [facility] (5685) 0 0.18 mg /[place] 08/22/2024 2 08/22/2024 Hydrocodone-Acetamin 5-325 Mg 8.00 2 Si Sma [id number] [facility] (0936) 0 20.00 MME [place] 08/15/2024 2 08/15/2024 Hydrocodone-Acetamin 5-325 Mg 20.00 6 Da Kin [id number] [facility] (8183) 0 16.67 [place] 08/03/2024 4 08/02/2024 Hydrocodone-Acetamin 5-325 Mg 14.00 3 Em Sex [id number] [facility] (0350) 0 23.33 [place] 07/23/2024 4 07/23/2024 Hydrocodone-Acetamin 5-325 Mg 14.00 3 Em Sex [id number] [facility] ([id number]) 0 23.33 [place] 07/21/2024 4 07/21/2024 Oxycodone-Acetaminophen 10-325 12.00 3 Ir Liliam [id number] [facility] (0350) 0 60.00 [place] 07/21/2024 1 07/09/2024 Pregabalin 75 Mg Capsule 60.00 30 Ma Melvin [id number] [facility] ([id number]) 0 /[place] 07/14/2024 4 07/13/2024 Oxycodone-Acetaminophen 10-325 28.00 7 Ma Melvin [id number] [facility] ([id number]) 0 60.00 [place]ME [place] 07/09/2024 4 07/09/2024 Oxycodone-Acetaminophen 10-325 28.00 7 Ma Melvin [id number] [facility] (0350) 0 60.00 [place] 06/25/2024 3 06/24/2024 Oxycodone-Acetaminophen 10-325 28.00 7 Ma Melvin [id number] [facility] (7509) 0 60.00 [place] 06/24/2024 1 06/23/2024 Oxycodone-Acetaminophen 10-325 64.00 16 Ma Melvin [id number] [facility] ([id number]) 0 60.00 MME /[place] 06/24/2024 1 06/23/2024 Pregabalin 75 Mg Capsule 32.00 16 Ma Melvin [id number] [facility] ([id number]) 0 /[place] 06/13/2024 3 06/13/2024 Oxycodone-Acetaminophn 7.5-325 60.00 10 Ti Sin [id number] [facility] (7509) 0 67.50 MME [place] /es/ LADI MARIN STAFF PHYSICIAN Signed: 10/20/2024 09:35 LADI GILMORE [facility] Oct 20, 2024 07:44 AM PHYSICAL MEDICINE REHAB NOTE: LOCAL TITLE: TELEPAIN NOTE STANDARD TITLE: PHYSICAL MEDICINE REHAB NOTE DATE OF NOTE: OCT 20, 2024@07:44 ENTRY DATE: OCT 20, 2024@07:44:10 AUTHOR: IMELDA GILMORE EXP COSIGNER: URGENCY: STATUS: COMPLETED Patient indentity verified by full name, social security and date of . INTERDISCIPLINARY TELEPAIN TEAM FOLLOW UP --This note is dictated using Dragon voice to text, it may contain typographical errors. PLEASE DISCUSS WITH COLLABORATING PHYSICIAN IF APPLICABLE. RECOMMENDATIONS ARE MADE BY TELEPAIN TEAM PER TELEPAIN CONSULT. PACT TEAM TO REVIEW RECOMMENDATIONS AND DECIDE IF IN AGREEMENT AND WISHING TO PROCEED WITH THEM. Time in session: 30 minutes Modality:vvc Patient's address during session: consistent with [employer] Patient?s telephone number: consistent with [employer] Emergency contact name/phone number: consistent with [employer] Phone Numbers: - Activate 914 services (EMERGENCY USE ONLY): call [phone] with current address of patient, agent can put provider in touch with drill press set up operator for patient's location - [facility] Line: 988 & press 1 or text [phone] - [facility] Tele[facility] Technology Help Desk (NTTHD): [phone] or [phone] INFORMED CONSENT: VVC: has been educated about the risks and benefits of clinical video telehealth. [place] has provided verbal consent to use VVC for their appointment today and for their appointment to take place outside of the [facility]. states they are in a safe and private environment suitable for the Telehealth encounter. has been informed of limits to confidentiality. Phone: [place] was educated about the risks and benefits of telephone care. has provided verbal consent to use telephone for their appointment today and for their appointment to take place outside of the [facility]. states they are in a safe and private environment suitable for the telephone encounter. has been informed of limits to confidentiality. CC: Rt leg pain HPI: Case of a 48-year-old male patient being seen today for follow up after last visit it was recommended that he stop buprenorphine and trial tramadol for chronic non malignant pain control related to phantom limb pain. Patient reports that he has not received tramadol prescription. Reports increased pain since he has been without pain medication. Had prostethics fit which he refers was painful pain level 8-9/10. PDMP query reveals that medication has been shipped but not received yet. Patient is anxious due to pain and not having received medication. Reports that he is seeing a doctor in [place]. 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 Telepain referral was triggered by a prior community care pain management referral that was denied, this referral documented low back pain that [...] mg two times a day as needed. Telephone f/up in 2 weeks PLEASE DISCUSS WITH COLLABORATING PHYSICIAN IF APPLICABLE. [...] Remote and Local Allergies: FACILITY ALLERGY/ADR -------- [facility] ATOMOXETINE [facility] LEXAPRO [facility] METHADONE [facility] MORPHINE CLNCL/HLTH [place] REPT EFF [id number] ESCITALOPRAM [facility] ESCITALOPRAM [facility] METHADONE [facility] MORPHINE [facility]ITALOPRAM [facility] METHADONE [facility] MORPHINE <<<<< Active Outpatient Medications (including [...] SECOND DOSE. Indication: FOR OPIOID OVERDOSE 5) PREGABALIN 100MG ORAL CAP TAKE ONE CAPSULE BY MOUTH TWICE A ACTIVE DAY Indication: FOR NERVE PAIN 6) SUMATRIPTAN SUCCINATE 25MG TAB TAKE ONE TABLET BY MOUTH ACTIVE EVERY DAY NEEDED DIRECTED FOR MIGRAINE. IF NOT BETTER IN 2 HOURS MAY REPEAT DOSE TIMES 1. Indication: FOR MIGRAINE HEADACHE 7) TAMSULOSIN HCL 0.4MG CAP TAKE TWO CAPSULES BY MOUTH AT ACTIVE BEDTIME Indication: FOR BPH 8) TRAMADOL HCL 50MG TAB TAKE TWO TABLETS BY MOUTH TWICE A DAY ACTIVE NEEDED Indication: FOR SEVERE PAIN 9) VENLAFAXINE HCL 75MG 24HR SA CAP TAKE THREE CAPSULES BY ACTIVE MOUTH EVERY DAY Indication: FOR MOOD/ANXIETY Active Non-VA Medications Status 1) Non-VA ACETAMINOPHEN 250/ASA 250/CAFF 65MG TAB 2 TABLETS ACTIVE MOUTH NEEDED Indication: FOR MIGRAINE HEADACHE 10 Total Medications <<<<< Active Inpatient Medications (including [...] ADHD (CONSULT APPROVED) Expr : 08/30/24 2) BUPRENORPHINE 7.5MCG/HR PATCH Qty: 4 for 28 DISCONTINUED Issue: 09/08/24 days Sig: APPLY 1 PATCH TO SKIN EVERY 7 DAYS Refills: 0 Last : 09/09/24 DIRECTED Expr : 10/08/24 Indication: FOR CHRONIC PAIN 3) CEPHALEXIN 500MG CAP Qty: 56 for 14 days Issue: 07/03/24 Sig: TAKE ONE CAPSULE BY MOUTH EVERY 6 HOURS Refills: 0 Last : 07/03/24 FOR 14 DAYS Expr : 08/02/24 4) CODEINE 30/ACETAMINOPHEN 300MG TAB Qty: 12 DISCONTINUED Issue: 06/05/24 for 3 days Sig: TAKE 1 TABLET BY MOUTH EVERY Refills: 0 Last : 06/05/24 6 HOURS NEEDED FOR MODERATE TO SEVERE Expr : 07/05/24 PAIN. VOUCHER - BYPASS LABEL, DO NOT MAIL. Indication: FOR PAIN 5) DOXEPIN 3MG TAB Qty: 60 for 30 days Sig: DISCONTINUED Issue: 03/03/24 TAKE ONE TABLET BY MOUTH AT BEDTIME (MAY Refills: 4 Last : 03/04/24 INCREASE TO TWO TABLETS IF NEEDED) Expr : 03/04/25 Indication: FOR SLEEP 6) DOXEPIN 3MG TAB Qty: 90 for 90 days Sig: DISCONTINUED Issue: 03/27/24 TAKE ONE TABLET BY MOUTH AT BEDTIME (NOTE Refills: 1 Last : 04/13/24 DOSE CHANGE) Expr : 03/28/25 Indication: FOR SLEEP 7) GABAPENTIN 300MG CAP Qty: 30 for [...] TOLERATING AND NEEDED) Indication: FOR ATTENTION 9) LIDOCAINE 5% PATCH Qty: 90 for 30 days Sig: DISCONTINUED Issue: 09/08/24 APPLY 3 PATCH 5% TO AFFECTED AREA EVERY DAY Refills: 3 Last : 09/14/24 AT 9:00 A.M. LEAVE ON FOR ONLY 12 HOURS Expr : 09/09/25 IN A 24 HOURS PERIOD Indication: FOR PAIN 10) LISINOPRIL 10MG TAB Qty: 90 for 90 days Sig: DISCONTINUED Issue: 05/13/24 TAKE ONE TABLET BY MOUTH EVERY DAY Refills: 3 Last : 05/13/24 Indication: FOR HIGH BLOOD PRESSURE Expr : 05/14/25 11) METHOCARBAMOL 750MG TAB Qty: 180 for 30 days Issue: 07/09/24 Sig: TAKE TWO TABLETS BY MOUTH THREE TIMES A Refills: 0 Last : 07/25/24 DAY Expr : 08/08/24 12) METHOCARBAMOL 750MG TAB Qty: 96 for 16 days DISCONTINUED Issue: 06/23/24 Sig: TAKE TWO TABLETS BY MOUTH THREE TIMES A Refills: 0 Last : 06/24/24 DAY FOR 16 DAYS Expr : 07/23/24 13) NICOTINE 2MG GUM Qty: 220 for [...] another approved/reconciled medication list would be in [facility] under the appointment list. /ben/ LADI MARIN STAFF PHYSICIAN Signed: 10/20/2024 09:34 Receipt Acknowledged By: 10/20/2024 10:00 /ben/ LADI HOBBS APRN [facility]
--- OUTSIDE RECORDS SUMMARY | 2024-10-20 18:21 | XMS_ITS | Continuity of Care Document ---
Author Name [facility] Organization [facility] Care Team Providers Care Collection Administrator Name Role Phone [facility] Unavailable Unavailable Problems Combined list of problems from Department of Defense and Veterans Affairs facilities. It does not include entries that were removed or entered in error. Problem Status Onset Date Problem Type Date of Resolution Comments Source ADVERSE EFFECT OF DRUG THERAPY Active Condition documented for SF558. Discontinue medication, given Ativian 1mg tablets for anxiety and see PCM for follow up [facility] Alcohol Abuse (SCT [id number]) Active Condition [facility] Alcohol Dependence * (ICD-9-CM 303.90/303.91) Active Condition [facility] Ankle pain Active Condition 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 Bipolar disorder Active Condition [facility] Bipolar disorder (SNOMED CT 60256645) Active Condition [facility] Depression Active Condition [facility] Erectile Dysfunction * (ICD-9-CM 302.72) Active Condition [facility] Exposure to potentially hazardous substance (SCT [id number]) Active Condition Jul 23 4 Entered By: ALISA CALHOUN Comment: Entered automatically through [facility] Problem List documentation program [facility] History of male erectile disorder Active Condition [facility] History of substance abuse Active Condition Jun 03, 2021 Entered By: LASHAWN MICHAEL Comment: ETOH , Opioid, Amphetamine, Caffeine [facility] Hypogonadism, Male (ICD-9-CM 257.2) Active Condition [facility] Insomnia (SCT 098587364) Active Condition [facility] Low back pain Active Condition [facility] Osteoarthritis Active Condition [facility] Sepsis caused by Staphylococcus aureus Active Condition [facility] Severe Recurrent Major Depression without Psychotic Features ([facility] [id number]) Active Condition [facility] Tobacco User ([facility] [id number]) Active Condition [facility] ADJUSTMENT REACTION NEC Inactive Condition 06/03/2021 GENE [...] 292.9/ICD-9-CM 292.9) Inactive Condition 06/03/2021 [facility] Cannabis abuse, in remission (ICD-9-CM 305.23) Inactive Condition 06/03/2021 [facility] Chronic rhinitis Inactive Condition 06/03/2021 [facility] Elbow: arthralgia Inactive Condition 06/03/2021 J [...] Pain of right ankle joint (SNOMED CT 78477368538381068 ) Inactive Condition 06/03/2021 Feb 24, 2013 Entered By: TRACIE KERNS Comment: Handicapped parking form completed 02/18 [facility] Unspecified drug dependence, in remission (ICD-9-CM 304.93) Inactive Condition 06/03/2021 [facility] Diagnosis: ICD-10-CM G54.6 Phantom limb syndrome with pain Active Diagnosis [facility] Diagnosis: ICD-10-CM G89.4 Chronic pain syndrome Active Diagnosis [facility] Diagnosis: ICD-10-CM Z89.511 Acquired absence of right leg below knee Active Diagnosis [facility] Diagnosis: ICD-10-CM F33.2 Major depressv disorder, recurrent severe w/o psych features Active Diagnosis [facility] Diagnosis: ICD-10-CM Z89.9 Acquired absence of limb, unspecified Active Diagnosis [facility] Diagnosis: ICD-10-CM R26.9 Unspecified abnormalities of gait and mobility Active Diagnosis [facility] Diagnosis: ICD-10-CM 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 Active Diagnosis [facility] Diagnosis: ICD-10-CM Z65.9 Problem related to unspecified psychosocial circumstances Active Diagnosis [facility] Diagnosis: ICD-10-CM S88.111S Complete traum amp at lev betw kn and ankl, r low leg, sqla Active Diagnosis [facility] Diagnosis: ICD-10-CM M25.571 Pain in right ankle and joints of right foot Active Diagnosis [facility] Diagnosis: ICD-10-CM M19.171 Post-traumatic osteoarthritis, right ankle and foot Active Diagnosis [facility] Diagnosis: ICD-10-CM F31.9 Bipolar disorder, unspecified Active Diagnosis [facility] Diagnosis: ICD-10-CM 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, right ankle and foot Active Diagnosis [facility] Diagnosis: ICD-10-CM F43.12 Post-traumatic stress disorder, chronic Active Diagnosis [facility] Diagnosis: ICD-10-CM F10.10 Alcohol abuse, uncomplicated Active Diagnosis [facility] Diagnosis: ICD-10-CM G47.33 Obstructive sleep apnea (adult) (pediatric) Active Diagnosis [facility] Diagnosis: ICD-10-CM G47.30 Sleep apnea, unspecified Active Diagnosis [facility] Diagnosis: ICD-10-CM F10.20 Alcohol dependence, uncomplicated Active Diagnosis [place] [facility] Diagnosis: ICD-10-CM Z51.81 Encounter for therapeutic drug level monitoring Active Diagnosis [facility] Diagnosis: ICD-10-CM Z71.81 Spiritual or shinto counseling Active Diagnosis [facility] Diagnosis: ICD-10-CM R51.9 Headache, unspecified Active Diagnosis [facility] Diagnosis: ICD-10-CM R78.81 Bacteremia Active Diagnosis [facility] Diagnosis: ICD-10-CM G43.911 Migraine, unspecified, intractable, with status migrainosus Active Diagnosis [facility] Diagnosis: ICD-10-CM A41.01 Sepsis due to Methicillin susceptible Staphylococcus aureus Active Diagnosis [facility] Admit Reason: PNEUMONIA Active Diagnosis [facility] Diagnosis: ICD-10-CM Z71.9 Counseling, unspecified Active Diagnosis [facility] Medications Combined list of outpatient medications from [...] NEEDED FOR PAIN ORAL DISCONT INUED 12/15/2023 [id number] 4 BARNEY LEBLANC 2023 240 [facility] ACETAMINOPH EN 325MG TAB TAKE TWO TABLETS BY MOUTH EVERY 8 HOURS NEEDED FOR PAIN ORAL 03/27/2024 [id number] 4 Krystyna VALENCIA 2023 240 [facility] ALBUTEROL SO4 90MCG/ACTUA T (CFC-F) INHL,ORAL,8 .5GM INHALE 1 PUFF BY MOUTH EVERY 6 HOURS NEEDED FOR CHRONIC OBSTRUCT VITO LUNG DISEASE RESPIR ATORY (INHAL ATION) DISCONT INUED 12/15/2023 [id number] 4 BARNEY LEBLANC 2023 1 [facility] ALBUTEROL SO4 90MCG/ACTUA T (CFC-F) INHL,ORAL,8 .5GM INHALE 1 PUFF BY MOUTH EVERY 6 HOURS NEEDED FOR CHRONIC OBSTRUCT VITO LUNG DISEASE RESPIR ATORY (INHAL ATION) 03/27/2024 [id number] 4 Krystyna VALENCIA 2023 1 [facility] APAP 250MG/ASA 250MG/CAFN 65MG TAB TAKE TWO TABLETS BY MOUTH PRN ORAL ACTIVE KARY RAMIREZ E 2023 [facility] ATOMOXETINE 40 MG ORAL CAP TAKE ONE CAPSULE BY MOUTH EVERY MORNING FOR 2 WEEKS THEN INCREASE TO 80MG DAILY FOR ADHD (CONSULT APPROVED ) 09/29/2023 [id number] 4 CATALINO TALAMANTES W 2023 14 [facility] ATOMOXETINE 40MG CAP TAKE ONE CAPSULE BY MOUTH EVERY MORNING FOR 2 WEEKS THEN INCREASE TO 80MG DAILY FOR ADHD (CONSULT APPROVED ) ORAL 09/29/2023 [id number] 4 KATHARINA TALAMANTES W 2023 14 [facility] ATOMOXETINE 80 MG ORAL CAP TAKE ONE CAPSULE BY MOUTH EVERY MORNING FOR ADHD (CONSULT APPROVED ) 08/30/2024 [id number] 4 CATALINO TALAMANTES W 2023 30 [facility] ATOMOXETINE 80MG CAP TAKE ONE CAPSULE BY MOUTH EVERY MORNING FOR ADHD (CONSULT APPROVED ) ORAL DISCONT INUED BY PROVIDE R 08/30/2024 [id number] 4 KATHARINA TALAMANTES W 2023 30 [facility] ATORVASTATI N CA 80MG TAB TAKE ONE-HALF TABLET BY MOUTH AT BEDTIME FOR HIGH CHOLESTE ROL ORAL DISCONT INUED 12/15/2023 [id number] 4 BARNEY LEBLANC 2023 15 [facility] ATORVASTATI N CA 80MG TAB TAKE ONE-HALF TABLET BY MOUTH AT BEDTIME FOR HIGH CHOLESTE ROL ORAL 03/27/2024 [id number] 4 Krystyna VALENCIA 2023 15 [facility] BUPRENORPHI NE 7.5MCG/HR PATCH APPLY 1 PATCH TO SKIN EVERY 7 DAYS FOR CHRONIC PAIN DIRECTED TRANSD ERMAL DISCONT INUED BY PROVIDE R 10/08/2024 [id number] 5 Krystyna VALENCIA 2024 4 [facility] CEPHALEXIN 500MG CAP TAKE ONE CAPSULE BY MOUTH EVERY 6 HOURS FOR 14 DAYS ORAL 08/02/2024 [id number] 5 MARBELLA,ED WIN 2024 56 [facility] CHOLECALCIF IBETH 25MCG (1,000UNIT) TAB TAKE ONE TABLET BY MOUTH EVERY DAY FOR VITAMIN D DEFICIEN CY ORAL DISCONT INUED BY PROVIDE R 03/27/2024 [id number] 4 Krystyna VALENCIA 2023 30 [facility] CHOLECALCIF IBETH 25MCG (1,000UNIT) TAB TAKE ONE TABLET BY MOUTH EVERY DAY FOR VITAMIN D DEFICIEN CY ORAL DISCONT INUED 12/15/2023 [id number] 4 BARNEY LEBLANC 2023 30 [facility] CODEINE 30MG/ACETAM INOPHEN 300MG TAB TAKE 1 TABLET BY MOUTH EVERY 6 HOURS NEEDED FOR MODERATE TO SEVERE PAIN. VOUCHER - BYPASS LABEL, DO NOT MAIL. FOR MODERATE TO SEVERE PAIN. VOUCHER - BYPASS LABEL, DO NOT MAIL. ORAL DISCONT INUED 07/05/2024 [id number] 5 Krystyna VALENCIA 2024 12 [facility] CYANOCOBALA MIN 1000MCG TAB TAKE ONE TABLET BY MOUTH EVERY DAY FOR LOW VITAMIN B-12 ORAL DISCONT INUED BY PROVIDE R 03/27/2024 [id number] 4 Krystyna VALENCIA 2023 30 [facility] CYANOCOBALA MIN 1000MCG TAB TAKE ONE TABLET BY MOUTH EVERY DAY FOR LOW VITAMIN B-12 ORAL DISCONT INUED 12/15/2023 [id number] 4 BARNEY LEBLANC 2023 30 [facility] DOXEPIN 3MG TAB TAKE ONE TABLET BY MOUTH AT BEDTIME FOR SLEEP (NOTE DOSE CHANGE) ORAL DISCONT INUED BY PROVIDE R 03/28/2025 [id number] 5 KATHARINA TALAMANTES 2024 90 [facility] DOXEPIN 3MG TAB TAKE ONE TABLET BY MOUTH AT BEDTIME FOR SLEEP (MAY INCREASE TO TWO TABLETS IF NEEDED) ORAL DISCONT INUED (EDIT) 03/04/2025 [id number] 4 KATHARINA TALAMANTES NAHEEDYAMEL W 2023 60 [facility] EFFEXOR XR (BRAND) 75 MG ORAL CP24 TAKE THREE CAPSULES BY MOUTH EVERY DAY FOR MOOD/ANX IETY (NOTE DOSE CHANGE) 08/27/2024 [id number] ALBIN CATALINO W 2023 90 [facility] GABAPENTIN 300MG CAP TAKE TWO CAPSULES BY MOUTH THREE TIMES A DAY FOR NEUROPAT HIC PAIN ORAL DISCONT INUED BY PROVIDE R 03/27/2024 [id number] 4 Krystyna VALENCIA 2023 180 [facility] GABAPENTIN 300MG CAP TAKE TWO CAPSULES BY MOUTH THREE TIMES A DAY FOR NEUROPAT HIC PAIN ORAL DISCONT INUED BY PROVIDE R 05/21/2024 [id number] 5 Krystyna VALENCIA 2024 180 [facility] GABAPENTIN 300MG CAP TAKE TWO CAPSULES BY MOUTH THREE TIMES A DAY FOR NEUROPAT HIC PAIN ORAL DISCONT INUED 12/15/2023 [id number] 4 BARNEY LEBLANC 2023 180 [facility] GABAPENTIN 300MG CAP TAKE ONE CAPSULE BY MOUTH TWICE A DAY FOR 15 DAYS ORAL 07/15/2024 [id number] 5 HAZEL TYSON 2024 30 [facility] GUANFACINE 1MG 24HR TAB,SA TAKE ONE TABLET BY MOUTH AT BEDTIME FOR 1 WEEK, THEN TAKE TWO TABLETS AT BEDTIME FOR ATTENTIO N (IF TOLERATI NG AND NEEDED) ORAL DISCONT INUED BY PROVIDE R 03/28/2025 [id number] 4 KATHARINA TALAMANTES DELMAR W 2023 53 [facility] HYDROXYZINE HCL 25MG TAB TAKE ONE TABLET BY MOUTH THREE TIMES A DAY NEEDED FOR ANXIETY ORAL 12/15/2023 [id number] 4 BARNEY LEBLANC 2023 60 [facility] IBUPROFEN 600MG TAB TAKE ONE TABLET BY MOUTH EVERY 8 HOURS NEEDED FOR PAIN *TAKE WITH FOOD* ORAL DISCONT INUED 12/15/2023 [id number] 4 BARNEY LEBLANC 2023 60 [facility] IBUPROFEN 600MG TAB TAKE ONE TABLET BY MOUTH EVERY 8 HOURS NEEDED FOR PAIN *TAKE WITH FOOD* ORAL 03/27/2024 [id number] 4 Krystyna VALENCIA 2023 60 [facility] LIDOCAINE 5% PATCH APPLY 3 PATCH 5% TO AFFECTED AREA EVERY DAY AT 9:00 A.M. FOR PAIN LEAVE ON FOR ONLY 12 HOURS IN A 24 HOURS PERIOD * TOPICA L DISCONT INUED BY ESTHER Joaquin 09/09/2025 [id number] 5 NICOLE COKER 2024 90 [facility] LISINOPRIL 10MG TAB TAKE ONE TABLET BY MOUTH EVERY DAY FOR HIGH BLOOD PRESSURE ORAL DISCONT INUED (EDIT) 05/14/2025 [id number] 5 Krystyna VALENCIA 2024 90 [facility] LISINOPRIL 20MG TAB TAKE ONE TABLET BY MOUTH EVERY DAY FOR HIGH BLOOD PRESSURE ORAL ACTIVE 06/06/2025 [id number] 5 Krystyna VALENCIA 2024 90 [facility] MELOXICAM 7.5MG TAB TAKE ONE TABLET BY MOUTH EVERY DAY (DO NOT TAKE WITH OTHER NSAIDS) ORAL 06/18/2024 [id number] 5 TAM STAHL I 2024 30 [facility] METHOCARBAM OL 750MG TAB TAKE TWO TABLETS BY MOUTH THREE TIMES A DAY FOR 16 DAYS ORAL DISCONT INUED 07/23/2024 [id number] 5 TAM STAHL I 2024 96 [facility] METHOCARBAM OL 750MG TAB TAKE TWO TABLETS BY MOUTH THREE TIMES A DAY ORAL 08/08/2024 [id number] 5 [facility] 2024 180 [facility] METHOCARBAM OL 750MG TAB TAKE ONE TABLET BY MOUTH EVERY 6 TO 8 HOURS NEEDED FOR MUSCLE SPASM . DO NOT EXCEED 3 TABLETS PER DAY. ORAL 06/18/2024 [id number] 5 [facility] 2024 90 [facility] METOPROLOL TARTRATE 25MG TAB TAKE ONE-HALF TABLET BY MOUTH TWICE A DAY FOR HIGH BLOOD PRESSURE ORAL ACTIVE 06/06/2025 [id number] 5 Krystyna VALENCIA 2024 90 [facility] METOPROLOL TARTRATE 25MG TAB TAKE ONE-HALF TABLET BY MOUTH TWICE A DAY FROM OUTSIDE HOSPITAL ORAL 12/15/2023 [id number] 4 BARNEY LEBLANC 2023 30 [facility] NALOXONE HCL 4MG/SPRAY SOLN,SPRAY, NASAL SPRAY 1 SPRAY IN NOSE NEEDED FOR OPIOID OVERDOSE IF PERSON DOES NOT START BREATHIN G IN 2-3 MINUTES, GIVE SECOND DOSE. NASAL ACTIVE 02/26/2025 [id number] 4 Krystyna VALENCIA 2023 2 [facility] NICOTINE 14MG/24HRS PATCH APPLY 1 PATCH TO SKIN EVERY DAY FOR SMOKING CESSATIO N. DO NOT SMOKE WHILE USING PATCH REMOVE OLD PATCH FIRST. TRANSD ERMAL 01/02/2024 [id number] 4 Rylee REYNOSO 2023 42 [facility] NICOTINE 21MG/24HRS PATCH APPLY 1 PATCH TO SKIN EVERY DAY FOR SMOKING CESSATIO N DO NOT SMOKE WHILE USING PATCH REMOVE OLD PATCH TRANSD ERMAL 12/15/2023 [id number] 4 BARNEY LEBLANC 2023 28 [facility] NICOTINE 7MG/24HRS PATCH APPLY 1 PATCH TO SKIN EVERY DAY FOR SMOKING CESSATIO N DO NOT SMOKE WHILE USING PATCH FOR USE AFTER THE 14MG PATCHES. REMOVE OLD PATCH FIRST. TRANSD ERMAL 12/21/2023 [id number] 4 Rylee REYNOSO 2023 14 [place] [facility] NICOTINE POLACRILEX 2MG TAB,CHEWG GUM CHEW 1 PIECE IN MOUTH EVERY 4 HOURS NEEDED FOR NICOTINE CRAVINGS . ORAL DISCONT INUED BY ESTHER R 11/21/2024 [id number] 4 Rylee REYNOSO 2023 220 [place] [facility] OMEPRAZOLE 20MG CAP,EC TAKE ONE CAPSULE BY MOUTH BEFORE LUNCH FOR ACID REFLUX ORAL DISCONT INUED 12/15/2023 [id number] 4 BARNEY LEBLANC 2023 30 [facility] OMEPRAZOLE 20MG CAP,EC TAKE ONE CAPSULE BY MOUTH BEFORE LUNCH FOR ACID REFLUX ORAL 03/27/2024 [id number] 4 Krystyna VALENCIA 2023 30 [facility] OXYCODONE HCL 10MG/ACETAM INOPHEN 325MG TAB TAKE 1 TABLET BY MOUTH EVERY 4 TO 6 HOURS NEEDED FOR 16 DAYS FOR PAIN DO NOT EXCEED 4 TABLETS PER DAY ORAL DISCONT INUED 07/23/2024 [id number] [facility] 2024 64 [facility] OXYCODONE HCL 5MG/ACETAMI NOPHEN 325MG TAB TAKE 1 TABLET BY MOUTH EVERY 6 HOURS NEEDED FOR SEVERE PAIN ONLY. MAX DOSE PER DAY 3 TABLETS. ORAL 12/15/2023 [id number] BARNEY LEBLANC 2023 10 [facility] PREGABALIN 100MG CAP,ORAL TAKE ONE CAPSULE BY MOUTH TWICE A DAY FOR NERVE PAIN ORAL ACTIVE 03/11/2025 [id number] 5 Krystyna VALENCIA 2024 60 [facility] PREGABALIN 75MG CAP,ORAL TAKE ONE CAPSULE BY MOUTH TWICE A DAY FOR 16 DAYS FOR NEUROPAT HY ORAL DISCONT INUED 07/23/2024 [id number] 5 [facility] RIVERTAM I 2024 32 [facility] PREGABALIN 75MG CAP,ORAL TAKE ONE CAPSULE BY MOUTH TWICE A DAY ORAL 08/08/2024 [id number] 5 ROBER BARRETOTAM [place]OL[place] I 2024 60 [facility] SENNOSIDES 8.6MG TAB TAKE TWO TABLETS BY MOUTH EVERY DAY NEEDED FOR CONSTIPA TION ORAL DISCONT INUED 12/15/2023 [id number] 4 BARNEY LEBLANC 2023 30 [facility] SENNOSIDES 8.6MG TAB TAKE TWO TABLETS BY MOUTH EVERY DAY NEEDED FOR CONSTIPA TION ORAL 03/27/2024 [id number] 4 Krystyna VALENCIA 2023 30 [facility] SUMATRIPTAN SUCCINATE 25MG TAB TAKE ONE TABLET BY MOUTH EVERY DAY NEEDED DIRECTED FOR MIGRAINE . IF NOT BETTER IN 2 HOURS MAY REPEAT DOSE TIMES 1. ORAL ACTIVE 02/27/2025 [id number] 4 Krystyna VALENCIA 2023 18 [facility] SUMATRIPTAN SUCCINATE 25MG TAB TAKE ONE TABLET BY MOUTH EVERY 6 HOURS NEEDED FOR MIGRAINE HEADACHE ORAL DISCONT INUED (EDIT) 03/27/2024 [id number] 4 Krystyna VALENCIA 2023 18 [facility] SUMATRIPTAN SUCCINATE 25MG TAB TAKE ONE TABLET BY MOUTH EVERY 6 HOURS NEEDED FOR MIGRAINE HEADACHE ORAL 12/15/2023 [id number] 4 BARNEY LEBLANC 2023 18 [facility] TAMSULOSIN HCL 0.4MG CAP TAKE TWO CAPSULES BY MOUTH AT BEDTIME FOR BPH ORAL ACTIVE 08/25/2025 [id number] 5 Krystyna VALENCIA 2024 60 [facility] TAMSULOSIN HCL 0.4MG CAP TAKE ONE CAPSULE BY MOUTH AT BEDTIME FOR BPH ORAL DISCONT INUED 06/27/2024 [id number] 5 Krystyna VALENCIA 2024 30 [facility] TAMSULOSIN HCL 0.4MG CAP TAKE ONE CAPSULE BY MOUTH AT BEDTIME FOR BPH ORAL DISCONT INUED 05/21/2024 [id number] 5 Krystyna VALENCIA 2024 30 [facility] TAMSULOSIN HCL 0.4MG CAP TAKE ONE CAPSULE BY MOUTH AT BEDTIME FOR BPH ORAL DISCONT INUED 12/15/2023 [id number] 4 BARNEY LEBLANC 2023 30 [facility] TAMSULOSIN HCL 0.4MG CAP TAKE ONE CAPSULE BY MOUTH AT BEDTIME FOR BPH ORAL 08/21/2024 [id number] 5 Krystyna VALENCIA 2024 30 [facility] TAMSULOSIN HCL 0.4MG CAP TAKE ONE CAPSULE BY MOUTH AT BEDTIME FOR BPH ORAL 03/27/2024 [id number] 4 Krystyna VALENCIA 2023 30 [facility] TIZANIDINE HCL 4MG TAB TAKE ONE TABLET BY MOUTH EVERY 8 HOURS NEEDED FOR MUSCLE SPASM *WATCH FOR DROWSINE SS* ORAL DISCONT INUED BY PROVIDE R 05/21/2024 [id number] 5 Krystyna VALENCIA 2024 90 [facility] TIZANIDINE HCL 4MG TAB TAKE ONE TABLET BY MOUTH EVERY 8 HOURS NEEDED FOR MUSCLE SPASM *WATCH FOR DROWSINE SS* ORAL DISCONT INUED 12/15/2023 [id number] 4 BARNEY LEBLANC 2023 90 [facility] TIZANIDINE HCL 4MG TAB TAKE ONE TABLET BY MOUTH EVERY 8 HOURS NEEDED FOR MUSCLE SPASM *WATCH FOR DROWSINE SS* ORAL 03/27/2024 [id number] 4 Krystyna VALENCIA 2023 90 [facility] TRAMADOL HCL 50MG TAB TAKE TWO TABLETS BY MOUTH TWICE A DAY NEEDED FOR SEVERE PAIN ORAL ACTIVE 11/07/2024 [id number] 5 Krystyna VALENCIA 2024 56 [facility] TRAZODONE HCL 150MG TAB TAKE ONE TABLET BY MOUTH AT BEDTIME FOR INSOMNIA ORAL 12/15/2023 [id number] 4 BARNEY LEBLANC 2023 30 [facility] TRAZODONE HCL 50MG TAB TAKE ONE TABLET BY MOUTH AT BEDTIME FOR SLEEP ORAL 10/19/2023 [id number] 4 [facility] W 2022 30 [facility] Trazodone Hydrochlori de (Desyrel Eq.) Tablet 50 mg Oral TAKE ONE TABLET BY MOUTH AT BEDTIME FOR SLEEP 10/19/2023 [id number] 4 CATALINO TALAMANTES W 2023 30 [facility] VENLAFAXINE HCL 150MG 24HR CAP,SA TAKE ONE CAPSULE BY MOUTH EVERY DAY FOR MOOD/ANX IETY ORAL DISCONT INUED (EDIT) 01/04/2024 [id number] 4 [facility] W 2022 30 [facility] VENLAFAXINE HCL 75MG 24HR CAP,SA TAKE THREE CAPSULES BY MOUTH EVERY DAY FOR MOOD/ANX IETY ORAL ACTIVE 06/06/2025 [id number] 5 [facility] W 2024 270 [facility] VENLAFAXINE HCL 75MG 24HR CAP,SA TAKE THREE CAPSULES BY MOUTH EVERY DAY FOR MOOD/ANX IETY (NOTE DOSE CHANGE) ORAL DISCONT INUED (EDIT) 08/27/2024 [id number] 5 [facility] W 2023 90 [facility] venlafaxine XR (U/D) 150 MG ORAL CP24 TAKE ONE CAPSULE BY MOUTH EVERY DAY FOR MOOD/ANX IETY Discont inued 01/04/2024 [id number] CATALINO TALAMANTES 2023 30 [facility] Allergies, Adverse Reactions, Alerts Combined list of allergies from Department of Defense and Veterans Affairs facilities. It does not include entries that were removed or entered in error. Substance Category Reaction Severity Reaction type Status Date Reported Comments Source ATOMOXETINE Propensity to adverse reactions to drug (finding) Anxiety active 4 [facility] ESCITALOPRAM OXALATE Drug allergy (disorder) Anaphylaxis active 6 [facility] LEXAPRO Propensity to adverse reactions to drug (finding) Anxiety active 2 [facility] LEXAPRO Propensity to adverse reactions to drug (finding) Low blood pressure active 5 [facility] LEXAPRO (ESCITALOPRA M OXALATE) Drug allergy (disorder) Unknown active [address] [place] [address] LEXAPRO 10MG TAB Propensity to adverse reactions to drug (finding) Anaphylaxis active 6 [facility] METHADONE Drug allergy (disorder) Nausea and Vomiting active 6 [facility] METHADONE Propensity to adverse reactions to drug (finding) Nausea and vomiting active 2 [facility] METHADONE Propensity to adverse reactions to drug (finding) Low blood pressure active 5 [facility] MORPHINE Drug allergy (disorder) Depression active 6 [facility] MORPHINE Propensity to adverse reactions to drug (finding) Depressive disorder active 6 [facility] MORPHINE Propensity to adverse reactions to drug (finding) active 2 [facility] MORPHINE Propensity to adverse reactions to drug (finding) Nausea and vomiting active 5 [facility] Immunizations Combined list of available immunizations from the Department of Defense and [facility] Affairs facilities. 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 INFLUENZA, UNSPECIFIED FORMULATION 2012 88 complet ed DOMENICA CHEUNG [place] INFLUENZA, UNSPECIFIED FORMULATION 2011 88 complet ed [facility] INFLUENZA, UNSPECIFIED FORMULATION 2004 88 complet ed DOMENICA TEEE [place] TD(ADULT) UNSPECIFIED FORMULATION 2003 139 complet ed DARIUSLASHA JONATAN AR Results Combined list of recent chemistry, [...] Feb 25, 2024 03:04 PM Reporting Lab: [place] [id number] Performing Lab: [place] [id number] ALT (SGPT) ALANINE AMINOTRANSF ERASE [ENZYMATIC ACTIVITY/VO LUME] IN SERUM OR PLASMA BY WITH P-5'-P 33 U/L 11 - 63 02/25 Specimen Type: PLASMA No comment entered. Ordering Provider: HAYDE VALENCIA Report Released Date/Time: Feb 25, 2024 03:04 PM Reporting Lab: [place] [phone] Performing Lab: [place] [phone] HEMOGLOBI N A1C HEMOGLOBIN A1C/HEMOGLO BIN.TOTAL [...] Feb 25, 2024 03:04 PM Reporting Lab: [facility] [address] [id number] Performing Lab: [facility] [address] [id number] [place] [address] ALKALINE PHOSPHATA SE ALKALINE PHOSPHATASE [ENZYMATIC ACTIVITY/VO LUME] IN SERUM OR PLASMA 91 U/L 31 - 126 02/25 Specimen Type: PLASMA No comment entered. Ordering Provider: HAYDE VALENCIA Report Released Date/Time: Feb 25, 2024 03:04 PM Reporting Lab: [facility] [address] [address] Performing Lab: [facility] [address] [place] [address] [id number] [place] [address] VITAMIN B12 COBALAMIN (VITAMIN B12) [MASS/VOLUM E] IN SERUM OR PLASMA 255 pg/mL 180 - 914 02/25 Specimen Type: PLASMA No comment entered. Ordering Provider: HAYDE VALENCIA Report Released Date/Time: Feb 25, 2024 03:04 PM Reporting Lab: [facility] [address] [address] Performing Lab: [facility] [address] [place] [phone] [facility] BMP+ALBUM IN CREATININE [MASS/VOLUM E] IN SERUM OR PLASMA 0.9 mg/dL 0.6 - 1.3 02/25 Specimen Type: PLASMA Comment: Blood older than 8 hours, cells and morphology may be affected. Ordering Provider: HAYDE VALENCIA Report Released Date/Time: Feb 25, 2024 03:04 PM Reporting Lab: [facility] [address] [address] Performing Lab: [facility] [address] [place] [phone] [facility] BMP+ALBUM IN GLUCOSE [MASS/VOLUM E] IN SERUM OR PLASMA 93 mg/dL 70 - 109 02/25 Specimen Type: PLASMA Comment: Blood older than 8 hours, cells and morphology may be affected. Ordering Provider: HAYDE VALENCIA Report Released Date/Time: Feb 25, 2024 03:04 PM Reporting Lab: [place] [id number] [address] Performing Lab: [facility] [address] [place] [phone] [facility] BMP+ALBUM IN SODIUM [MOLES/VOLU ME] IN SERUM OR PLASMA 137 mmol/L 135 - 145 02/25 Specimen Type: PLASMA Comment: Blood older than 8 hours, cells and morphology may be affected. Ordering Provider: HAYDE VALENCIA Report Released Date/Time: Feb 25, 2024 03:04 PM Reporting Lab: [facility] [address] Performing Lab: [facility] [address] [place], [place] [phone] [place] [address] BMP+ALBUM IN POTASSIUM [MOLES/VOLU ME] IN SERUM OR PLASMA 4.7 mmol/L 3.5 - 5.1 02/25 Specimen Type: PLASMA Comment: Blood older than 8 hours, cells and morphology may be affected. Ordering Provider: HAYDE VALENCIA Report Released Date/Time: Feb 25, 2024 03:04 PM Reporting Lab: [facility] [address] [place] [phone] Performing Lab: [facility] [address] [place], [place] [phone] [place] [address] BMP+ALBUM IN CHLORIDE [MOLES/VOLU ME] IN SERUM OR PLASMA 106 mmol/L 100 - 109 02/25 Specimen Type: PLASMA Comment: Blood older than 8 hours, cells and morphology may be affected. Ordering Provider: HAYDE VALENCIA Report Released Date/Time: Feb 25, 2024 03:04 PM Reporting Lab: [place] [address] [place] [phone] Performing Lab: [place] [phone] [place] [address] BMP+ALBUM IN CARBON DIOXIDE, TOTAL [MOLES/VOLU ME] IN SERUM OR PLASMA 25 mmol/L 22 - 29 02/25 Specimen Type: PLASMA Comment: Blood older than 8 hours, cells and morphology may be affected. Ordering Provider: HAYDE VALENCIA Report Released Date/Time: Feb 25, 2024 03:04 PM Reporting Lab: [place] [phone] Performing Lab: [address] BMP+ALBUM IN ALBUMIN [MASS/VOLUM E] IN SERUM OR PLASMA 4.0 g/dL 3.4 - 5 02/25 Specimen Type: PLASMA Comment: Blood older than 8 hours, cells and morphology may be affected. Ordering Provider: HAYDE VALENCIA Report Released Date/Time: Feb 25, 2024 03:04 PM Reporting Lab: [address] [address] Performing Lab: [address] [address] [facility] BMP+ALBUM IN CALCIUM [MASS/VOLUM E] IN SERUM OR PLASMA 9.0 mg/dL 8.3 - 10.3 02/25 Specimen Type: PLASMA Comment: Blood older than 8 hours, cells and morphology may be affected. Ordering Provider: HAYDE VALENCIA Report Released Date/Time: Feb 25, 2024 03:04 PM Reporting Lab: [address] [address] Performing Lab: [address] [address] [facility] BMP+ALBUM IN UREA NITROGEN [MASS/VOLUM E] IN SERUM OR PLASMA 16 mg/dL 5.0 - 20.0 02/25 Specimen Type: PLASMA Comment: Blood older than 8 hours, cells and morphology may be affected. Ordering Provider: HAYDE VALENCIA Report Released Date/Time: Feb 25, 2024 03:04 PM Reporting Lab: [address] [address] Performing Lab: [address] [address] [facility] BMP+ALBUM IN GLOMERULAR FILTRATION RATE/1.73 SQ M.PREDICTED [VOLUME RATE/AREA] IN SERUM, PLASMA OR BLOOD BY CREATININE- BASED FORMULA (CKD-EPI 2020) >90 90 02/25 Specimen Type: PLASMA Comment: Blood older than 8 hours, cells and morphology may be affected. Ordering Provider: HAYDE VALENCIA Report Released Date/Time: Feb 25, 2024 03:04 PM Reporting Lab: [address] [address] Performing Lab: [facility] [address] TSH THYROTROPIN [UNITS/VOLU ME] IN SERUM OR PLASMA 1.19 u[IU]/ mL 0.34 - 5.6 02/25 Specimen Type: PLASMA No comment entered. Ordering Provider: HAYDE VALENCIA Report Released Date/Time: Feb 25, 2024 03:04 PM Reporting Lab: [place] [address] Performing Lab: [address] CBC WITH DIFFERENT IAL LEUKOCYTES [#/VOLUME] IN BLOOD BY AUTOMATED COUNT 4.8 10*3/u L 3.6 - 10.0 02/25 Specimen Type: BLOOD Comment: Blood older than 8 hours, cells and morphology may be affected. Ordering Provider: HAYDE VALENCIA Report Released Date/Time: Feb 25, 2024 03:04 PM Reporting Lab: [place] [address] Performing Lab: [address] CBC WITH DIFFERENT IAL ERYTHROCYTE S [#/VOLUME] IN BLOOD BY AUTOMATED COUNT 4.65 10*6/u L 4.0 - 6.0 02/25 Specimen Type: BLOOD Comment: Blood older than 8 hours, cells and morphology may be affected. Ordering Provider: HAYDE VALENCIA Report Released Date/Time: Feb 25, 2024 03:04 PM Reporting Lab: [place] [address] Performing Lab: [address] CBC WITH DIFFERENT IAL HEMOGLOBIN [MASS/VOLUM E] IN BLOOD 13.6 g/dL 13.5 - 18.0 02/25 Specimen Type: BLOOD Comment: Blood older than 8 hours, cells and morphology may be affected. Ordering Provider: HAYDE VALENCIA Report Released Date/Time: Feb 25, 2024 03:04 PM Reporting Lab: [place] [address] Performing Lab: [facility] [address] [place] [address] CBC WITH DIFFERENT IAL HEMATOCRIT [VOLUME FRACTION] OF BLOOD BY AUTOMATED COUNT 41.2 40.0 - 54.0 02/25 Specimen Type: BLOOD Comment: Blood older than 8 hours, cells and morphology may be affected. Ordering Provider: HAYDE VALENCIA Report Released Date/Time: Feb 25, 2024 03:04 PM Reporting Lab: [place] [address] Performing Lab: [address] CBC WITH DIFFERENT IAL MCV [ENTITIC VOLUME] BY AUTOMATED COUNT 88.7 fL 80.0 - 94.0 02/25 Specimen Type: BLOOD Comment: Blood older than 8 hours, cells and morphology may be affected. Ordering Provider: HAYDE VALNECIA Report Released Date/Time: Feb 25, 2024 03:04 PM Reporting Lab: [place] [address] Performing Lab: [address] CBC WITH DIFFERENT IAL MCH [ENTITIC MASS] BY AUTOMATED COUNT 29.2 pg 27 - 33 02/25 Specimen Type: BLOOD Comment: Blood older than 8 hours, cells and morphology may be affected. Ordering Provider: HAYDE VALENCIA Report Released Date/Time: Feb 25, 2024 03:04 PM Reporting Lab: [place] [phone] Performing Lab: [address] CBC WITH DIFFERENT IAL MCHC [MASS/VOLUM E] BY AUTOMATED COUNT 32.9 g/dL 32.0 - 36.0 02/25 Specimen Type: BLOOD Comment: Blood older than 8 hours, cells and morphology may be affected. Ordering Provider: HAYDE VALENCIA Report Released Date/Time: Feb 25, 2024 03:04 PM Reporting Lab: [place] [phone] Performing Lab: [address] CBC WITH DIFFERENT IAL PLATELETS [#/VOLUME] IN BLOOD BY AUTOMATED COUNT 239 10*3/u L 150.0 - 450.0 02/25 Specimen Type: BLOOD Comment: Blood older than 8 hours, cells and morphology may be affected. Ordering Provider: HAYDE VALENCIA Report Released Date/Time: Feb 25, 2024 03:04 PM Reporting Lab: [place] [address] Performing Lab: [address] CBC WITH DIFFERENT IAL PLATELET MEAN VOLUME [ENTITIC VOLUME] IN BLOOD BY AUTOMATED COUNT 8.2 fL 7.4 - 10.4 02/25 Specimen Type: BLOOD Comment: Blood older than 8 hours, cells and morphology may be affected. Ordering Provider: HAYDE VALENCIA Report Released Date/Time: Feb 25, 2024 03:04 PM Reporting Lab: [place] [address] Performing Lab: [address] CBC WITH DIFFERENT IAL ERYTHROCYTE DISTRIBUTIO N WIDTH [RATIO] BY AUTOMATED COUNT 13.8 11.5 - 14.5 02/25 Specimen Type: BLOOD Comment: Blood older than 8 hours, cells and morphology may be affected. Ordering Provider: HAYDE VALENCIA Report Released Date/Time: Feb 25, 2024 03:04 PM Reporting Lab: [place] [address] Performing Lab: [address] CBC WITH DIFFERENT IAL MONOCYTES/1 00 LEUKOCYTES IN BLOOD BY AUTOMATED COUNT 10.2 02/25 Specimen Type: BLOOD Comment: Blood older than 8 hours, cells and morphology may be affected. Ordering Provider: HAYDE VALENCIA Report Released Date/Time: Feb 25, 2024 03:04 PM Reporting Lab: [place] [address] Performing Lab: [address] CBC WITH DIFFERENT IAL LYMPHOCYTES [#/VOLUME] IN BLOOD BY AUTOMATED COUNT 1.0 10*3/u L 1.0 - 4.3 02/25 Specimen Type: BLOOD Comment: Blood older than 8 hours, cells and morphology may be affected. Ordering Provider: HAYDE VALENCIA Report Released Date/Time: Feb 25, 2024 03:04 PM Reporting Lab: [address] [address] Performing Lab: [address] CBC WITH DIFFERENT IAL MONOCYTES [#/VOLUME] IN BLOOD BY AUTOMATED COUNT 0.5 10*3/u L 0.3 - 1.0 02/25 Specimen Type: BLOOD Comment: Blood older than 8 hours, cells and morphology may be affected. Ordering Provider: HAYDE VALENCIA Report Released Date/Time: Feb 25, 2024 03:04 PM Reporting Lab: [place] [phone] Performing Lab: [address] CBC WITH DIFFERENT IAL LYMPHOCYTES /100 LEUKOCYTES IN BLOOD BY AUTOMATED COUNT 20.1 02/25 Specimen Type: BLOOD Comment: Blood older than 8 hours, cells and morphology may be affected. Ordering Provider: HAYDE VALENCIA Report Released Date/Time: Feb 25, 2024 03:04 PM Reporting Lab: [place] [phone] Performing Lab: [place] [phone] CBC WITH DIFFERENT IAL NEUTROPHILS /100 LEUKOCYTES IN BLOOD BY AUTOMATED COUNT 65.3 02/25 Specimen Type: BLOOD Comment: Blood older than 8 hours, cells and morphology may be affected. Ordering Provider: HAYDE VALENCIA Report Released Date/Time: Feb 25, 2024 03:04 PM Reporting Lab: [address] [address] Performing Lab: [address] CBC WITH DIFFERENT IAL NEUTROPHILS [#/VOLUME] IN BLOOD BY AUTOMATED COUNT 3.1 10*3/u L 2.4 - 7.6 02/25 Specimen Type: BLOOD Comment: Blood older than 8 hours, cells and morphology may be affected. Ordering Provider: HAYDE VALENCIA Report Released Date/Time: Feb 25, 2024 03:04 PM Reporting Lab: [facility] [address] [place] [phone] Performing Lab: [facility] [address] [place], [place] [phone] [address] CBC WITH DIFFERENT IAL EOSINOPHILS [#/VOLUME] IN BLOOD BY AUTOMATED COUNT 0.2 10*3/u L 0.0 - 0.5 02/25 Specimen Type: BLOOD Comment: Blood older than 8 hours, cells and morphology may be affected. Ordering Provider: HAYDE VALENCIA Report Released Date/Time: Feb 25, 2024 03:04 PM Reporting Lab: [place] [phone] Performing Lab: [place] [phone] CBC WITH DIFFERENT IAL BASOPHILS [#/VOLUME] IN BLOOD BY AUTOMATED COUNT 0.1 10*3/u L 0.0 - 0.1 02/25 Specimen Type: BLOOD Comment: Blood older than 8 hours, cells and morphology may be affected. Ordering Provider: HAYDE VALENCIA Report Released Date/Time: Feb 25, 2024 03:04 PM Reporting Lab: [facility] [address] [place] [phone] Performing Lab: [place] [phone] CBC WITH DIFFERENT IAL BASOPHILS/1 00 LEUKOCYTES IN BLOOD BY AUTOMATED COUNT 1.1 02/25 H Specimen Type: BLOOD Comment: Blood older than 8 hours, cells and morphology may be affected. Ordering Provider: HAYDE VALENCIA Report Released Date/Time: Feb 25, 2024 03:04 PM Reporting Lab: [place] [phone] Performing Lab: [address] CBC WITH DIFFERENT IAL EOSINOPHILS /100 LEUKOCYTES IN BLOOD BY AUTOMATED COUNT 3.3 02/25 Specimen Type: BLOOD Comment: Blood older than 8 hours, cells and morphology may be affected. Ordering Provider: HAYDE VALENCIA Report Released Date/Time: Feb 25, 2024 03:04 PM Reporting Lab: [address] [address] Performing Lab: [place] [phone] LIPID PANEL CHOLESTEROL [MASS/VOLUM E] IN SERUM OR PLASMA 155 mg/dL 135 - 200 02/25 Specimen Type: PLASMA Comment: Blood older than 8 hours, cells and morphology may be affected. Ordering Provider: HAYDE VALENCIA Report Released Date/Time: Feb 25, 2024 03:04 PM Reporting Lab: [address] [address] Performing Lab: [place] [phone] LIPID PANEL TRIGLYCERID E [MASS/VOLUM E] IN SERUM OR PLASMA 111 mg/dL 30 - 200 02/25 Specimen Type: PLASMA Comment: Blood older than 8 hours, cells and morphology may be affected. Ordering Provider: HAYDE VALENCIA Report Released Date/Time: Feb 25, 2024 03:04 PM Reporting Lab: [address] [address] Performing Lab: [place] [phone] LIPID PANEL CHOLESTEROL IN HDL [MASS/VOLUM E] IN SERUM OR PLASMA 39 mg/dL 30 - 70 02/25 Specimen Type: PLASMA Comment: Blood older than 8 hours, cells and morphology may be affected. Ordering Provider: HAYDE VALENCIA Report Released Date/Time: Feb 25, 2024 03:04 PM Reporting Lab: [address] [address] Performing Lab: [address] LIPID PANEL CHOLESTEROL IN LDL [MASS/VOLUM E] IN SERUM OR PLASMA BY CALCULATION 94 mg/dL 0 - 100 02/25 Specimen Type: PLASMA Comment: Blood older than 8 hours, cells and morphology may be affected. Ordering Provider: HAYDE VALENCIA Report Released Date/Time: Feb 25, 2024 03:04 PM Reporting Lab: [facility] [address] [address] Performing Lab: [facility] [address] [address] [facility] URINE ALBUMIN CREATININ E PANEL CREATININE [MASS/VOLUM E] IN URINE 190.10 mg/dL 02/25 Specimen Type: URINE Comment: Unable to calculate Urine Albumin/Cre at Ratio. Total Urine Albumin is below linearity of assay. Ordering Provider: HAYDE VALENCIA Report Released Date/Time: Feb 25, 2024 03:04 PM Reporting Lab: [facility] [address] [address] Performing Lab: [facility] [address] [address] [facility] URINE ALBUMIN CREATININ E PANEL ALBUMIN [MASS/VOLUM E] IN URINE <0.5mg /dL 0 - 4.9 02/25 L Specimen Type: URINE Comment: Unable to calculate Urine Albumin/Cre at Ratio. Total Urine Albumin is below linearity of assay. Ordering Provider: HAYDE VALENCIA Report Released Date/Time: Feb 25, 2024 03:04 PM Reporting Lab: [facility] [address] [address] Performing Lab: [address] [address] [facility] URINE ALBUMIN CREATININ E PANEL ALBUMIN/CRE ATININE [MASS RATIO] IN URINE commen tug/mg 0 - 30 02/25 Specimen Type: URINE Comment: Unable to calculate Urine Albumin/Cre at Ratio. Total Urine Albumin is below linearity of assay. Ordering Provider: HAYDE VALENCIA Report Released Date/Time: Feb 25, 2024 03:04 PM Reporting Lab: [address] [address] Performing Lab: [address] [address] [facility] Vital Signs Combined list of inpatient and outpatient Vital Signs from Department of Defense and Veterans Affairs, ranging from 12 months to all on record, depending upon the facility. Vital Sign Value Date Comments Source SYSTOLIC BLOOD PRESSURE 146 08/12/2024 13:17:23 [facility] DIASTOLIC BLOOD PRESSURE 94 08/12/2024 13:17:23 [facility] PULSE OXIMETRY 97 08/12/2024 13:17:23 [facility] WEIGHT 260 08/12/2024 13:17:23 [facility] BMI 33 kg/m2 08/12/2024 13:17:23 [facility] PAIN 7 08/12/2024 13:17:23 [facility] HEIGHT 74 08/12/2024 13:17:23 [facility] TEMPERATURE 98.7 08/12/2024 13:17:23 [facility] PULSE 89 08/12/2024 13:17:23 [facility] RESPIRATION 18 08/12/2024 13:17:23 [facility] SYSTOLIC BLOOD PRESSURE 130 06/05/2024 15:06:31 [facility] DIASTOLIC BLOOD PRESSURE 94 06/05/2024 15:06:31 [facility] PULSE OXIMETRY 95 06/05/2024 15:06:31 [facility] WEIGHT 273 06/05/2024 15:06:31 [facility] BMI 35 kg/m2 06/05/2024 15:06:31 [facility] PAIN 7 06/05/2024 15:06:31 [facility] HEIGHT 74 06/05/2024 15:06:31 [facility] TEMPERATURE 97.5 06/05/2024 15:06:31 [facility] PULSE 100 06/05/2024 15:06:31 [facility] RESPIRATION 20 06/05/2024 15:06:31 [facility] SYSTOLIC BLOOD PRESSURE 156 04/30/2024 09:04:41 [facility] DIASTOLIC BLOOD PRESSURE 100 04/30/2024 09:04:41 [facility] WEIGHT 260.1 04/30/2024 09:04:41 [facility] BMI 33 kg/m2 04/30/2024 09:04:41 [facility] PAIN 10 04/30/2024 09:04:41 [facility] PULSE 84 04/30/2024 09:04:41 [facility] SYSTOLIC BLOOD PRESSURE 144 03/18/2024 10:23:43 [facility] DIASTOLIC BLOOD PRESSURE 89 03/18/2024 10:23:43 [facility] WEIGHT 242.3 03/18/2024 10:23:43 [facility] BMI 31 kg/m2 03/18/2024 10:23:43 [facility] PAIN 9 03/18/2024 10:23:43 [facility] PULSE 84 03/18/2024 10:23:43 [facility] SYSTOLIC BLOOD PRESSURE 114 02/26/2024 09:16:25 [facility] DIASTOLIC BLOOD PRESSURE 78 02/26/2024 09:16:25 [facility] PULSE OXIMETRY 97 02/26/2024 09:16:25 [facility] WEIGHT 234 02/26/2024 09:16:25 [facility] BMI 30 kg/m2 02/26/2024 09:16:25 [facility] PAIN 8 02/26/2024 09:16:25 [facility] HEIGHT 74 02/26/2024 09:16:25 [facility] TEMPERATURE 97.7 02/26/2024 09:16:25 [facility] PULSE 79 02/26/2024 09:16:25 [facility] RESPIRATION 18 02/26/2024 09:16:25 [facility] Encounters Combined list of: 1) Encounters from Department of Veterans Affairs facilities going backup to the last 18 months, not all VA inpatient encounters are included; 2) Encounters from the Department of [facility] facilities going backup to 280 months. Location Location Details Encounter Type Encounter Number Reason For Visit Attending Provider ADM Date DC Date Status Disposition Source [employer]([facility]) TELE CONSULT [id number] Adverse Drug Reactio n KATHY Ramírez 03/13 [employer]([facility]) [facility] Outpatient Encounter [id number] 05/06 [facility] Outpatient Encounter [id number] 05/21 [facility] Outpatient [facility]counter [id number] 06/06 [facility] Outpatient Encounter [id number] 07/29 [facility] HC PRO PHONE CALL 5-10 MIN [id number] Diagnos is: ICD-10- CM Z71.9 Rivet Tosser ing, unspeci fihazel JONESTA MMY E 08/11 [facility] OFFICE O/P EST MOD 30 MIN [id number] Diagnos is: ICD-10- CM F33.2 Major depress v disorde r, recurre nt severe w/o psych feature s ANMOL TALAMANTES W 08/26 [facility] BRIEF EMOTIONAL/ BEHAV ASSMT [id number] Diagnos is: ICD-10- CM F33.2 Major depress v disorde r, recurre nt severe w/o psych feature s ARELY JONES MMY E 08/26 [facility] Outpatient Encounter [id number] 08/27 [facility] Outpatient Encounter [id number] 08/29 [facility] Outpatient Encounter [id number] 08/29 [facility] HC PRO PHONE CALL 11-20 MIN [id number] Diagnos is: ICD-10- CM Z71.9 Rivet Tosser ing, unspeci jason JONESTA MMY E 09/10 [facility] Outpatient Encounter [id number] GOLDY SURESH 09/11 [facility] PRO PHONE CALL 5-10 MIN [id number] Diagnos is: ICD-10- CM Z71.9 Rivet Tosser ing, 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 ROBERTARELY MMY E 09/11 [facility] Outpatient Encounter [id number] 09/29 [facility] Outpatient Encounter [id number] 10/29 [facility] Outpatient Encounter [id number] ABBY MOBLEY 10/29 [facility] Outpatient Encounter [id number] 10/29 [facility] CASE MANAGEMENT [id number] Diagnos is: ICD-10- CM Z65.9 Problem related to 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 psychos ocial circums Rylee Zuniga NNA M 10/30 [facility] Outpatient Encounter [id number] 11/03 [facility] [place] [facility] Outpatient Encounter [id number] [place] ELIGIO OTTO 11/03 [place] [facility] Outpatient Encounter [id number] 11/04 [facility] Outpatient Encounter [id number] SA HAMMAD OLIVER A 11/04 [facility] [place] [facility] Outpatient Encounter [id number] 11/04 [place] [facility] Outpatient Encounter [id number] 11/04 [facility] Outpatient Encounter [id number] 11/09 [place] [facility] Outpatient Encounter [id number] 11/09 [place] [place] [facility] En[facility] [id number] 11/09 [facility] Outpatient Encounter [id number] 11/09 [facility] Inpatient Encounter [id number] Admit Reason: HEATHER MALDONADO 11/09 Regular discharge from inpatient treatment. [facility] Inpatient Encounter [id number] 11/09 [facility] Inpatient Encounter [id number] 11/09 [facility] Inpatient Encounter [id number] 11/09 [facility] Inpatient Encounter [id number] 11/09 [facility] Inpatient Encounter [id number] 11/09 [facility] Inpatient Encounter [id number] 11/09 [facility] Inpatient Encounter [id number] 11/09 [facility] CASE MANAGEMENT [id number] Diagnos is: ICD-10- CM Z65.9 Problem related to 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 psychos ocial circums tonya Rylee BURDEN 11/10 [facility] Inpatient Encounter [id number] 11/10 [facility] Inpatient Encounter [id number] Diagnos is: ICD-10- CM F10.10 Alcohol abuse, uncompl icated REECE REYNOSO 11/10 [facility] Inpatient Encounter [id number] 11/10 [facility] OFF/OP CONSLTJ NEW/[place] HI 55 [id number] Diagnos is: ICD-10- CM G43.911 Migrain e, 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, intract able, with status migrain osus JOE MCNAMARA 11/10 [facility] IP/OBS CONSLTJ NEW/[place] HI 80 [id number] Diagnos is: ICD-10- CM A41.01 Sepsis due to Methici llin suscept ible Staphyl ococcus aureus SAHRA LOZANO 11/10 [facility] HANDLE ROUNDER OPERATOR CIVIL RIGHTS REPRESENTATIVE INDIVIDU 10190-0.59 [id number] Diagnos is: ICD-10- CM 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 WALLACE Veliz 11/10 [facility] Inpatient Encounter 35967-3.59 [id number] 11/10 [facility] 93796-2.59 [id number] Diagnos is: ICD-10- CM Z65.9 Problem related to 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 psychos ocial circums CHARISSA Tse 11/10 [facility] Inpatient Encounter 98193-8.59 [id number] 11/10 [facility] Inpatient Encounter 12090-8.59 [id number] 11/10 [facility] Inpatient Encounter 12787-6.59 [id number] 11/11 [facility] SBSQ HOSP IP/OBS HIGH 50 19954-7.59 [id number] Diagnos is: ICD-10- CM G43.911 Migrain e, 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, intract able, with status migrain osus JOE MCNAMARA 11/11 [facility] Inpatient Encounter 30280-0.59 [id number] 11/11 [facility] Inpatient Encounter 21384-2.59 [id number] 11/11 [facility] HANDLE ROUNDER OPERATOR CIVIL RIGHTS REPRESENTATIVE INDIVIDU 18341-2.59 [id number] Diagnos is: ICD-10- CM 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 WALLACE Veliz 11/11 [facility] CASE MANAGEMENT 01915-2.59 [id number] Diagnos is: ICD-10- CM Z65.9 Problem related to 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 psychos ocial circums CHARISSA Tse 11/11 [facility] Inpatient Encounter 69207-6.59 [id number] 11/11 [facility] Inpatient Encounter 41175-9.59 [id number] 11/11 [facility] PT EVAL LOW COMPLEX 20 MIN 58316-9.59 [id number] Diagnos is: ICD-10- CM R51.9 Headach e, 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 GENARO CORTEZ ID W 11/12 [facility] QNHP OL DIG ASSMT&MGMT 5-10 57037-6.59 [id number] Diagnos is: ICD-10- CM Z51.81 Encount er for therape utic drug level monitor ANGELINA Guerrero 11/12 [facility] CASE MANAGEMENT 92268-5.59 [id number] Diagnos is: ICD-10- CM Z65.9 Problem related to 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 psychos ocial circums CHARISSA Tse 11/12 [facility] SBSQ HOSP IP/OBS MODERATE 35 12828-6.59 [id number] Diagnos is: ICD-10- CM R78.81 Bactere MACRINA Miranda 11/12 [facility] Inpatient Encounter 32744-9.59 [id number] 11/12 [facility] Inpatient Encounter 73457-3.59 [id number] 11/12 [facility] Inpatient Encounter 45583-9.59 [id number] 11/12 [facility] Inpatient Encounter 81655-4.59 [id number] 11/13 [facility] Inpatient Encounter 92317-2.59 [id number] 11/13 [facility] OT EVAL LOW COMPLEX 30 MIN 27855-2.59 [id number] Diagnos is: ICD-10- CM R51.9 Headach e, 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 GERMAN NGUYEN 11/13 [facility] Inpatient Encounter 49676-8.59 [id number] Diagnos is: ICD-10- CM G47.33 Obstruc tive sleep apnea (adult) (pediat kristi) GENARO WEBB 11/13 [facility] Inpatient Encounter 92985-2.59 [id number] 11/13 [facility] Inpatient Encounter 57336-6.59 [id number] 11/13 [facility] SBSQ HOSP IP/OBS HIGH 50 46890-4.59 [id number] Diagnos is: ICD-10- CM R51.9 Headach e, 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 MACRINA LEBLANC 11/13 [facility] Inpatient Encounter 52735-4.59 [id number] 11/13 [facility] SELF-MGMT EDUC & TRAIN 1 PT [address]-6.59 [id number] Diagnos is: ICD-10- CM G47.33 Obstruc tive sleep apnea (adult) (pediat kristi) Rylee ECKERT 11/13 [facility] Inpatient Encounter 22418-9.59 [id number] 11/14 [facility] Inpatient Encounter 52443-3.59 [id number] 11/14 [facility] Inpatient Encounter 35038-8.59 [id number] 11/14 [facility] Inpatient Encounter 31200-8.59 [id number] 11/14 [facility] Inpatient Encounter 43858-9.59 [id number] 11/14 [facility] HANDLE ROUNDER OPERATOR CIVIL RIGHTS REPRESENTATIVE INDIVIDU 70744-3.59 [id number] Diagnos is: ICD-10- CM 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 ing WALLACE MACKENZIE 11/14 [facility] QNHP OL DIG ASSMT&MGMT 5-10 71778-2.59 [id number] Diagnos is: ICD-10- CM Z51.81 Encount er for therape utic drug level monitor BRAYAN Olivares 11/14 [facility] CASE MANAGEMENT 24554-759 [id number] Diagnos is: ICD-10- CM Z65.9 Problem related to 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 psychos ocial circums CHARISSA Tse 11/14 [facility] OFF/OP EST AUGUST X REQ PHY/QHP 12022-3.59 [id number] 56 Diagnos is: ICD-10- CM F10.10 Alcohol abuse, uncompl icated Araceli VYAS 11/17 [place] [facility] MEDS BY RX/DR IN [facility] 52641-2.59 [id number] 47 Diagnos is: ICD-10- CM F10.20 Alcohol depende nce, uncompl icated JEWELMIRELLA KILLIAN P 11/17 [facility] SLEEP STUDY UNATT&RESP EFFT 24629-8.59 [id number] Diagnos is: ICD-10- CM G47.30 Sleep apnea, 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 ZORANLETY Gleason M 11/17 [facility] SLEEP STUDY UNATT&RESP EFFT 16988-3.59 [id number] Diagnos is: ICD-10- CM G47.33 Obstruc tive sleep apnea (adult) (pediat kristi) GENARO WEBB 11/17 [facility] Outpatient Encounter 24942-4.59 [id number] 11/[address] [facility] PRO PHONE CALL 11-20 MIN 76849-1.59 [id number] 84 Diagnos is: ICD-10- CM F10.10 Alcohol abuse, uncompl icated NONA CONNORS N 11/19 [facility] BRIEF EMOTIONAL/ BEHAV ASSMT 34899-7.59 [id number] 40 Diagnos is: ICD-10- CM F10.10 Alcohol abuse, uncompl icated REECE REYNOSO 11/20 [facility] Outpatient Encounter 13624-3.59 [id number] 11/20 [facility] BHV ASSMT/REAS SESSMENT 57349-3.59 [id number] 03 Diagnos is: ICD-10- CM F10.10 Alcohol abuse, uncompl icated TERRANCE GLASER 11/20 [facility] Outpatient Encounter 43233-2.59 [id number] 11/21 [facility] MH HEALTH ASSESS BY NON- 67966-1.59 [id number] 92 Diagnos is: ICD-10- CM F10.10 Alcohol abuse, uncompl icated Jeanette RAMIREZ 11/21 [facility] PSYCHOTHER APY 47924-8.59 [id number] 68 Diagnos is: ICD-10- CM F10.10 Alcohol abuse, uncompl icated Jeanette RAMIREZ 11/21 [facility] Outpatient Encounter 88934-4.59 [id number] 11/21 [facility] PSYCHOTHER APY 48825-8.59 [id number] 29 Diagnos is: ICD-10- CM F10.10 Alcohol abuse, uncompl icated LILY,CL AUDIA E 11/21 [facility] Outpatient Encounter 26976-3.59 [id number] Jeanette RAMIREZ 11/21 [facility] Outpatient Encounter 31613-5.59 [id number] Jeanette RAMIREZ 11/21 [facility] Outpatient Encounter 27724-0.59 [id number] 43 11/21 [facility] Outpatient Encounter 75643-5.59 [id number] 74 11/21 [facility] HEALTH ASSESS BY NON- 88740-7.59 [id number] 07 Diagnos is: ICD-10- CM F10.10 Alcohol abuse, uncompl icated ALEJO GLASERY Roosevelt 11/24 [facility] PSYCHOTHER APY 84928-2.59 [id number] 19 Diagnos is: ICD-10- CM F10.10 Alcohol abuse, uncompl icated LILY,CL AUDIA E 11/24 [facility] PSYCHOTHER APY 17662-3.59 [id number] 43 Diagnos is: ICD-10- CM F10.10 Alcohol abuse, uncompl icated AARTI HEIN IE 11/24 [facility] PRO PHONE CALL 11-20 MIN 45345-3.59 [id number] 12 Diagnos is: ICD-10- CM F10.10 Alcohol abuse, uncompl icated ARELY JONES MMY E 11/24 [facility] PSYCH DIAGNOSTIC EVALUATION 49950-1.59 [id number] 07 Diagnos is: ICD-10- CM F10.10 Alcohol abuse, uncompl icated NONA CONNORS N 11/24 [facility] HEALTH ASSESS BY NON-MD 13990-2.59 [id number] 34 Diagnos is: ICD-10- CM F10.10 Alcohol abuse, uncompl icated AARTI HEIN IE 11/25 [facility] PSYCHOTHER APY 30713-5.59 [id number] 26 Diagnos is: ICD-10- CM F10.10 Alcohol abuse, uncompl icated VIVEKFARYuriyD MICHELLE G 11/25 [facility] PSYCHOTHER APY 56398-4.59 [id number] 09 Diagnos is: ICD-10- CM F10.10 Alcohol abuse, uncompl icated AARTI HEIN IE 11/25 [facility] PSYTX W PT 30 MINUTES 30446-2.59 [id number] 04 Diagnos is: ICD-10- CM F10.10 Alcohol abuse, uncompl icated LILY,CL AUDIA E 11/25 [facility] Outpatient Encounter 45844-6.59 [id number] 11/25 [facility] HEALTH ASSESS BY NON- 55884-3.59 [id number] 92 Diagnos is: ICD-10- CM F10.10 Alcohol abuse, uncompl icated Jeanette RAMIREZ 11/26 [facility] PSYCHOTHER APY 27034-0.59 [id number] 38 Diagnos is: ICD-10- CM F10.10 Alcohol abuse, uncompl icated LUISRoosevelt M 11/26 [facility] PSYCHOTHER APY 70905-2.59 [id number] 35 Diagnos is: ICD-10- CM F10.10 Alcohol abuse, uncompl icated LYUBOVFATIMAHOliviaGEOVANI Rylee 11/26 [facility] HEALTH ASSESS BY NON- 35559-5.59 [id number] 58 Diagnos is: ICD-10- CM F10.10 Alcohol abuse, uncompl icated CATALINO LOZA 11/27 [facility] Outpatient Encounter 42803-8.59 [id number] 86 11/27 [facility] Outpatient Encounter 89155-0.59 [id number] 40 11/27 [facility] Outpatient Encounter 56640-5.59 [id number] 11/27 [facility] Outpatient Encounter 01646-1.59 [id number] 82 12/01 [facility] Outpatient Encounter 73838-4.59 [id number] 12/03 [facility] Outpatient Encounter 90419-2.59 [id number] 12/17 [facility] Outpatient Encounter 75555-4.59 [id number] 12/19 [facility] Outpatient Encounter 18548-9.59 [id number] 12/22 [facility] Outpatient Encounter 87847-1.59 [id number] Jeanette HOYOS 12/24 [facility] HC PRO PHONE CALL 5-10 MIN 08110-6.59 [id number] 17 Diagnos is: ICD-10- CM F10.10 Alcohol abuse, uncompl icated ARELY JONES MMY E 12/30 [facility] Outpatient Encounter 37438-2.59 [id number] 12/31 [facility] Outpatient Encounter 48023-8.59 [id number] 01/12 [facility] Outpatient Encounter 87008-7.59 [id number] 01/14 [facility] Outpatient Encounter 91388-8.59 [id number] 01/29 [facility] HC PRO PHONE CALL 11-20 MIN 00724-4.59 [id number] 76 Diagnos is: ICD-10- CM F31.9 Bipolar disorde r, 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 ARELY JONES MMY E 02/24 [facility] Outpatient Encounter 51841-5.59 [id number] 02/25 [facility] OFFICE O/P EST LOW 20 MIN 46455-1.59 [id number] 91 Diagnos is: ICD-10- CM F43.12 Post-tr aumatic stress disorde r, chronic DAR VALENCIA 02/25 [facility] Outpatient Encounter 13972-3.59 [id number] 02/26 [facility] RN SERVICES UP TO 15 MINUTES 77591-8.59 [id number] 00 Diagnos is: ICD-10- CM F31.9 Bipolar disorde r, unspeci jason ROBERTARELY MMY E 03/03 [facility] OFFICE O/P EST MOD 30 MIN 94754-4.59 [id number] 34 Diagnos is: ICD-10- CM F33.2 Major depress v disorde r, recurre nt severe w/o psych feature s ANMOL TALAMANTES MAS W 03/03 [facility] Outpatient Encounter 36683-7.59 [id number] 03/04 [facility] Outpatient Encounter 99131-6.59 [id number] 03/18 [facility] OFF/OP CONSLTJ NEW/EST HI 55 56196-3.59 [id number] Diagnos is: ICD-10- CM M12.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, right ankle and foot HITESH,SEA N G 03/18 [facility] Outpatient Encounter 37468-5.59 [id number] 03/18 [facility] Outpatient Encounter 71673-8.59 [id number] 03/19 [facility] Outpatient Encounter 59977-1.59 [id number] 72 03/23 [facility] RN SERVICES UP TO 15 MINUTES 49234-9.59 [id number].[id number] 74 Diagnos is: ICD-10- CM F31.9 Bipolar disorde r, unspeci hayhazel ARELY JONES MMY E 03/27 [facility] OFFICE O/P EST MOD 30 MIN 99118-8.59 [id number] 20 Diagnos is: ICD-10- CM F33.2 Major depress v disorde r, recurre nt severe w/o psych feature s ANMOL TALAMANTES W 03/27 [facility] Outpatient Encounter 66473-1.59 [id number] 03/30 [facility] Outpatient Encounter 11951-7.65 [id number] 4 ABBY MOBLEY L 04/[address] 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 Outpatient Encounter 46016-3.59 [id number] 15 05/27 [facility] Outpatient Encounter 53446-7.59 [id number] 11 05/28 [facility] Outpatient Encounter 39360-3.59 [id number] 05/28 [facility] Outpatient Encounter 38793-6.67 [id number] 06/05 [facility] FELICIA MARIE [facility] Outpatient Encounter 36547-7.56 [id number] 06/05 DOMENICA CHEUNG [facility] Outpatient Encounter 80437-6.65 [id number] 8 06/05 [facility] RN SERVICES UP TO 15 MINUTES 18925-7.59 [id number].[id number] 16 Diagnos is: ICD-10- CM F33.2 Major depress v disorde r, recurre nt severe w/o psych feature s ARELY JONES MMJazmin E 06/05 [facility] OFFICE O/P EST MOD 30 MIN 09760-7.59 [id number] 06 Diagnos is: ICD-10- CM F33.2 Major depress v disorde r, recurre nt severe w/o psych feature s ANMOL TALAMANTES W 06/05 [facility] OFFICE O/P EST LOW 20 MIN 01886-2.59 [id number] 94 Diagnos is: ICD-10- CM M25.571 Pain in right ankle and joints of right foot JAYDE GONZALEZ 06/05 [facility] Outpatient Encounter 34594-1.59 [id number] DAR VALENCIA H 06/08 [facility] Outpatient Encounter 67380-6.59 [id number] 06/10 [facility] Outpatient Encounter 32684-9.59 [id number] 06/12 [facility] Outpatient Encounter 02403-2.59 [id number] 65 06/12 [facility] Outpatient Encounter 94196-5.65 [id number] 6 ABBY MOBLEY 06/15 [facility] WHEELCHAIR MNGMENT TRAINING 85116-1.59 [id number].[id number] 45 Diagnos is: ICD-10- CM 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, 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 Rosemary DHALIWAL 06/15 [facility] Outpatient Encounter 67394-9.65 [id number] 0 ABBY MOBLEY RIL L 06/17 [facility] Outpatient Encounter 53287-9.59 [id number] Diagnos is: ICD-10- CM S88.111 S Complet e traum amp at [place] au and emani brown, ABIMBOLA Santos 06/17 [facility] Outpatient Encounter 83760-7.65 [id number] 6 ITZ,AP RIL L 06/18 [facility] Outpatient Encounter 53814-5.59 [id number] 19 06/19 [facility] CASE MANAGEMENT 10193-3.59 [id number] 46 Diagnos is: ICD-10- CM Z65.9 Problem related to 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 psychos ocial circums tances CAPERTON,A NNA M 06/19 [facility] Outpatient Encounter 92361-9.59 [id number] 06/22 [facility] PH1 ASSMT&MGMT NQHP 5-10 47401-0.59 [id number] 29 Diagnos is: ICD-10- CM Z65.9 Problem related to 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 psychos ocial circums tances CAPERTON,A NNA M 06/22 [facility] CASE MANAGEMENT 97029-9.59 [id number] 94 Diagnos is: ICD-10- CM Z65.9 Problem related to 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 psychos ocial circums tances CAPERTON,A NNA M 06/22 [facility] Outpatient Encounter 46033-1.65 [id number] 0 ITZ,AP RIL L 06/26 [facility] Outpatient Encounter 44916-5.59 [id number] 06/26 [facility] Outpatient Encounter 03104-9.65 [id number] 5 ABBY MOBLEY RIL L 06/29 [facility] NQHP OL DIG ASSMT&MGMT 21+ 23973-5.59 [id number] Diagnos is: ICD-10- CM Z79.891 senior living (curren t) use of opiate analges ic INGRID VALERA 07/03 [facility] Outpatient Encounter 22467-1.59 [id number] 83 07/13 [facility] THERAPEUTI C ACTIVITIES 24172-5.59 [id number] 67 Diagnos is: ICD-10- CM R26.9 Unspeci fied abnorma lities of gait and mobilit Emani Baker 07/13 [facility] WHEELCHAIR MNGMENT TRAINING 05948-4.59 [id number].[id number] 09 Diagnos is: ICD-10- CM 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, 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 Rosemary DHALIWAL 07/13 [facility] Outpatient Encounter 04316-5.59 [id number] 07/21 [facility] Outpatient Encounter 34950-6.65 [id number] 8 ABBY MOBLEY RIL L 07/21 [facility] Outpatient Encounter 90645-8.59 [id number] 07/21 [facility] Outpatient Encounter 18237-7.59 [id number] 07/22 [facility] Outpatient Encounter 65262-5.65 [id number] 9 ABBY MOBLEY RIL L 07/24 [facility] Outpatient Encounter 71291-7.65 [id number] 3 ABBY MOBLEY RIL L 08/03 [facility] FAC[facility] FEE 07297-1.59 [id number].[id number] 57 Diagnos is: ICD-10- CM 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 Emani HARRIS A 08/10 [place], [place] VAN OFF/OP CONSLTJ NEW/EST HI 55 99320-0.59 [id number] 41 Diagnos is: ICD-10- CM 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 ELAINA DAY 08/10 [place] [facility] Outpatient Encounter 20352-9.59 [id number] 08/10 [facility] Outpatient Encounter 41146-4.65 [id number] 7 ABBY MOBLEY RIL L 08/11 [facility] Outpatient Encounter 91519-6.59 [id number] Diagnos is: ICD-10- CM G54.6 Phantom limb syndrom e with pain CHARISSE COKER M 08/11 [facility] Outpatient Encounter 88011-1.59 [id number] 08/12 [facility] OFFICE O/P EST LOW 20 MIN 49228-8.59 [id number] 03 Diagnos is: ICD-10- CM 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 DAR VALENCIA H 08/12 [facility] OFFICE O/P EST MOD 30 MIN 43072-1.59 [id number].[id number] 32 Diagnos is: ICD-10- CM F33.2 Major depress v disorde r, recurre nt severe w/o psych feature s ANMOL TALAMANTES MAS W 08/14 [facility] Outpatient Encounter 05017-1.65 [id number] 1 ABBY MOBLEY RIL L 08/17 [facility] Outpatient Encounter 87284-3.59 [id number] 08/24 [facility] Outpatient Encounter 93053-5.59 [id number] 08/25 [facility] Outpatient Encounter 84021-2.59 [id number] 08/26 [facility] Outpatient Encounter 01235-0.59 [id number] 09/02 [facility] Outpatient Encounter 95027-0.65 [id number] 1 ITZABBY RIL L 09/03 [facility] PH1 ASSMT&MGMT NQHP 5-10 11636-2.59 [id number] 34 Diagnos is: ICD-10- CM 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 ST YESY [place] 09/03 [place] [place] [facility] [place] 60 19113-8.59 [id number] Diagnos is: ICD-10- CM G54.6 Phantom limb syndrom e with pain CHARISSE COKER SSA M 09/08 [facility] Outpatient Encounter 78477-8.59 [id number] 10/01 [facility] SYNCH AUDIO-[place] 40 16426-4.59 [id number] Diagnos is: ICD-10- CM G54.6 Phantom limb syndrom e with pain CHARISSE COKER SSA M 10/08 [facility] PSYCH DIAGNOSTIC EVALUATION 56979-5.59 [id number] 40 Diagnos is: ICD-10- CM G89.4 Chronic pain syndrom e VEE CHE ICA H 10/12 [place] [facility] [facility] Outpatient Encounter 45418-7.59 [id number] VEE CHE ICA H 10/12 [facility] Outpatient Encounter 62962-2.65 [id number] 6 ABBY MOBLEY RIL L 10/15 [facility] Outpatient Encounter 49945-1.59 [id number] 10/15 [facility] Outpatient Encounter 54138-8.59 [id number] 10/19 [facility] SYNCH AUDIO-VIDE O EST MOD 30 78834-0.59 [id number] Diagnos is: ICD-10- CM G54.6 Phantom limb syndrom e with pain CHARISSE COKER 10/20 [facility] Procedures Combined list of: 1) Procedures from [facility] facilities going back up to thelast 18 months, not all [place] non-surgical procedures are included; 2) All procedures from the Department of Defense facilities. Procedure Procedure Type Code Date Perfomer Comments Sourc e INDIVIDUAL PSYCHOTHERAPY, INSIGHT ORIENTED, BEHAVIOR MODIFYING AND/OR SUPPORTIVE, IN AN OFFICE OR OUTPATIENT FACILITY, APPROXIMATELY 45 TO 50 MINUTES [id number] W THE PATIENT; W MED EVAL & MGT SER 07/12/2004 [facility] INDIVIDUAL PSYCHOTHERAPY, INSIGHT ORIENTED, BEHAVIOR MODIFYING AND/OR SUPPORTIVE, IN AN OFFICE OR OUTPATIENT FACILITY, APPROXIMATELY 45 TO 50 MINUTES [id number] W THE PATIENT; W MED EVAL & MGT SER 05/12/2004 [facility] CRUTCHES UNDERARM, OTHER ERIKA N WOOD, ADJUSTABLE OR FIXED, PAIR, WITH PADS, TIPS AND HANDGRIPS 04/27/2004 [facility] VASECTOMY, UNILATERAL OR BILATERAL (SEPARATE PROCEDURE), INCLUDING POSTOPERATIVE SEMEN EXAM(S) 12/24/2003 [facility] COLLECTION OF VENOUS BLOOD B Y VENIPUNCTURE [...] ENDURANCE, RANGE OF MOTION AND FLEXIBILITY 09/16/2003 [facility] THERAPEUTIC PROCEDURE, 1 OR MORE AREAS, EACH 15 MINUTES; THERAPEUTIC EXERCISES TO DEVELOP STRENGTH AND ENDURANCE, RANGE OF MOTION AND FLEXIBILITY 09/14/2003 [facility] MANUAL THERAPY TECHNIQUES (EG, MOBILIZATION/ MANIPULATION, MANUAL LYMPHATIC DRAINAGE, MANUAL TRACTION), 1 OR MORE REGIONS, EACH 15 MINUTES 09/10/2003 [facility] MANUAL THERAPY TECHNIQUES (EG, MOBILIZATION/ MANIPULATION, MANUAL [...] MORE AREAS; HOT OR COLD PACKS 07/06/2003 [facility] THERAPEUTIC PROCEDURE, 1 OR MORE AREAS, EACH 15 MINUTES; THERAPEUTIC EXERCISES TO DEVELOP STRENGTH AND ENDURANCE, RANGE OF MOTION AND FLEXIBILITY 07/05/2003 [facility] SPECIAL CASTING MATERIAL (E.G., FIBERGLASS) 06/17/2003 [facility] APPLICATION OF SHORT LEG VIC T (BELOW KNEE TO TOES); WALKING OR AMBULATORY TYPE 05/31/2003 [facility] INJECTION, MEPERIDINE HCL, PER 100 MG 05/12/2003 [facility] DETERMINATION OF REFRACTIVE STATE 03/25/2003 [facility] INJECTION, TETANUS IMMUNE GLOBULIN, HUMAN, UP TO 250 UNITS 05/05/2002 [facility] INDIVIDUAL PSYCHOTHERAPY, INSIGHT ORIENTED, BEHAVIOR MODIFYING AND/OR SUPPORTIVE, IN AN OFFICE OR OUTPATIENT FACILITY, APPROXIMATELY 20 TO 30 MINUTES [id number] WITH THE PATIENT 04/24/2001 [facility] INDIVIDUAL PSYCHOTHERAPY, INSIGHT ORIENTED, BEHAVIOR MODIFYING AND/OR SUPPORTIVE, IN AN OFFICE OR OUTPATIENT FACILITY, APPROXIMATELY 45 TO 50 MINUTES [id number] WITH THE PATIENT 03/03/2001 [facility] PHARMACOLOGIC MANAGEMENT, INCLUDING PRESCRIPTION, USE, AND REVIEW OF MEDICATION WITH NO MORE THAN MINIMAL MEDICAL PSYCHOTHERAPY 12/31/2000 [facility] INDIVIDUAL PSYCHOTHERAPY, INSIGHT ORIENTED, BEHAVIOR MODIFYING AND/OR SUPPORTIVE, IN AN OFFICE OR OUTPATIENT FACILITY, APPROXIMATELY 45 TO 50 MINUTES [id number] WITH THE PATIENT 12/05/2000 [facility] INDIVIDUAL PSYCHOTHERAPY, INSIGHT ORIENTED, BEHAVIOR MODIFYING AND/OR SUPPORTIVE, IN AN OFFICE OR OUTPATIENT FACILITY, APPROXIMATELY 20 TO 30 MINUTES [id number] WITH THE PATIENT 11/15/2000 [facility] PSYCHIATRIC DIAGNOSTIC INTERVIEW EXAMINATION 11/14/2000 [facility] DRESSING CHANGE (FOR OTHER THAN [place]) UNDER ANESTHESIA (OTHER THAN LOCAL) 09/19/2000 [facility] REPAIR UMBILICAL HERNIA, AGE 5 YEARS OR OLDER; REDUCIBLE 09/18/2000 [facility] INDIVIDUAL PSYCHOTHERAPY, INSIGHT ORIENTED, BEHAVIOR MODIFYING AND/OR SUPPORTIVE, IN AN OFFICE OR OUTPATIENT FACILITY, APPROXIMATELY 45 TO 50 MINUTES [id number] WITH THE PATIENT 09/09/2000 [facility] INDIVIDUAL PSYCHOTHERAPY, INSIGHT ORIENTED, BEHAVIOR MODIFYING AND/OR SUPPORTIVE, IN AN OFFICE OR OUTPATIENT FACILITY, APPROXIMATELY 20 TO 30 MINUTES [id number] WITH THE PATIENT 06/27/2000 [facility] GROUP PSYCHOTHERAPY (OTHER THAN OF A MULTIPLE-FAMILY GROUP) 06/25/2000 [facility] PHARMACOLOGIC MANAGEMENT, INCLUDING PRESCRIPTION, USE, AND REVIEW OF MEDICATION WITH NO MORE THAN MINIMAL MEDICAL PSYCHOTHERAPY 06/21/2000 [facility] GROUP PSYCHOTHERAPY (OTHER THAN OF A MULTIPLE-FAMILY GROUP) 06/11/2000 [facility] PHARMACOLOGIC MANAGEMENT, INCLUDING PRESCRIPTION, USE, AND REVIEW OF MEDICATION WITH NO MORE THAN MINIMAL MEDICAL PSYCHOTHERAPY 06/11/2000 [facility] INDIVIDUAL PSYCHOTHERAPY, INSIGHT ORIENTED, BEHAVIOR MODIFYING AND/OR SUPPORTIVE, IN AN OFFICE OR OUTPATIENT FACILITY, APPROXIMATELY 45 TO 50 MINUTES [id number] WITH THE PATIENT 06/03/2000 [facility] INDIVIDUAL PSYCHOTHERAPY, INSIGHT ORIENTED, BEHAVIOR MODIFYING AND/OR SUPPORTIVE, IN AN OFFICE OR OUTPATIENT FACILITY, APPROXIMATELY 45 TO 50 MINUTES [id number] WITH THE PATIENT 05/16/2000 [facility] THERAPEUTIC PROCEDURE, 1 OR MORE AREAS, EACH 15 MINUTES; THERAPEUTIC EXERCISES TO DEVELOP STRENGTH AND ENDURANCE, RANGE OF MOTION AND FLEXIBILITY 03/11/2000 [facility] PHARMACOLOGIC MANAGEMENT, INCLUDING PRESCRIPTION, USE, AND REVIEW OF MEDICATION WITH NO MORE THAN MINIMAL MEDICAL PSYCHOTHERAPY 01/31/2000 [facility] PHARMACOLOGIC MANAGEMENT, INCLUDING PRESCRIPTION, USE, AND REVIEW OF MEDICATION WITH NO MORE THAN MINIMAL MEDICAL PSYCHOTHERAPY 12/01/1999 [facility] PHARMACOLOGIC MANAGEMENT, INCLUDING PRESCRIPTION, USE, AND REVIEW OF MEDICATION WITH NO MORE THAN MINIMAL MEDICAL PSYCHOTHERAPY 11/27/1999 [facility] APPLICATION, CAST; HAND AND LOWER FOREARM 11/06/1999 [facility] APPLICATION, CAST; ELBOW TO FINGER 11/02/1999 [facility] Social History Combined list of available smoking, tobacco, and other social history from Department of Defense and Veterans Affairs facilities. Social History Type Response Date Comment Sour e Tobacco smoking status NHIS VA-TOBACCO USE ADVICE 08/14/2024 [facility] History of tobacco use VA-TOBACCO SCREEN FOLLOW-UP 08/14/2024 [facility] History of tobacco use VA-TOBACCO USE FORMER CIGARETTES 08/12/2024 [facility] History of tobacco use VA-TOBACCO USE FORMER CIGARETTES 06/05/2024 [facility] History of tobacco use VA-TOBACCO USER EVERY DAY 11/25/2023 [facility] R[facility]EL, A [facility] History of tobacco use VA-TOBACCO USER EVERY DAY 10/18/2022 [facility] History of tobacco use VA-TOBACCO QUIT 5 TO < 15 YRS 11/18/2018 [facility] History of tobacco use V16 TOBACCO USE SCREEN 08/07/2016 [facility] [place] [facility] History of tobacco use TOBACCO USE SCRN INPT 07/29/2016 [facility] History of tobacco use FORMER TOBACCO USE >1Y <7Y 01/23/2014 [facility] History of tobacco use CURRENT SMOKELESS TOBACCO USER 11/09/2013 [facility] History of tobacco use V16 TOBACCO USE SCREEN 11/26/2011 [facility] [place] [facility] History of tobacco use V16 TOBACCO USE SCREEN 12/25/2010 [facility] History of tobacco use CURRENT SMOKER 01/06/2010 [facility] History of tobacco use CURRENT SMOKER 02/10/2009 [facility] History of tobacco use V16 TOBACCO CESSATION ED (PROVIDER) 04/11/2007 [facility] History of tobacco use V16 TOBACCO CESSATION PROGRAM DECLINED 08/07/2006 [facility] History of tobacco use V16 TOBACCO USE SCREEN 03/06/2006 [facility] [place] [facility] History of tobacco use TOBACCO CESSATION: 1-5 YEARS 09/04/2005 [facility] History of tobacco use V16 TOBACCO CESSATION <12 MONTHS 07/27/2005 [facility] History of tobacco use TOBACCO CESSATION: <1 YEAR 04/26/2005 [facility] This section is an empty social history section. DoD Plan of Care List of future care activities from Department of Veterans Affairs facilities. Additional future care activities may be listed in the Assessment and Plan section. Date/Time Care Activity Care Activity Detail Facili ty 10/20/2024 [facility]ORY - REHAB MEDICINE [facility] - [facility] MEDICINE [facility] Advance Directives List of completed, amended, or rescinded Advance Directives on record at Department of Veterans Affairs facilities. An actual copy of the Directive is not included. Date Advance Directive Provider Source 07/30/2016 ADVANCE DIRECTIVE DISCUSSION [facility]
--- OUTSIDE RECORDS SUMMARY | 2024-10-20 18:24 | XMS_ITS | Patient Health Record ---
Author Organization [facility] Address [address] [place] [address] [place] [address] Care Team Providers Care Traffic Operations Engineer Name Role Phone Juwan Maldonado APRN Primary Care Provider U da Calderón Kellie Unavailable [phone] Faisal Johnson Unavailable [phone] Raza Beltran Unavailable [phone] Meri Gould Unavailable [phone] Sangeeta Taveras Unavailable Allergies Allergen (clinical drug ingredient) Drug/Non Drug Allergy documented on EMR Reaction Allergy Type Onset Date Status escitalopram Lexapro Unknown Drug Allergy Acti ve atomoxetine Strattera panic attack Drug Allergy Ac tive Results Component Value Reference Range Flag Notes zzzUrine Drug Screen (confir mation by instrument) - 23528 Reviewed date:05/28/2024 11:24:14 AM Interpretation: Performing Lab: Notes/Report: Comprehensive Metabolic Pane l (CMP) 85321 Reviewed date:06/10/2024 03:12:06 PM Interpretation: Performing Lab: Notes/Report: Diagnosis Description: Post-traumatic osteoarthritis, right ankle and foot Diagnosis Description: Neuralgia and neuritis, unspecified Diagnosis Description: Encounter for other preprocedural examination Glucose Serum 73 71-110 MG/DL Testing p erformed at [facility], [address] [place] [address] Dr. Randal [place], [place] [id number]. CLIA ID#: [id number] BUN 16 7-21 MG/DL Creat 1.12 .57-1.17 MG/DL Q-akvfyp-c-benzoquino ne imine (NAPQI) is a metabolite of acetaminophen, [...] potential for falsely depressed results. GFR 80.3 NA Calculation pe rformed from GFR calculator provided by the National [...] Gap 12 5-15 Alk Phos 145 46-116 HI Bili Total .4 .3-1.2 MG/DL Use of this assay is not recommended for patients undergoing treatment with eltrombopag due to the potential for falsely elevated results. AST/SGOT 68 15-37 UNIT/L HI ALT/SGPT 37 12-78 UNIT/L Osmo Serum,Calculated 284 280-300 MOSM/KG CBC Reflex Man Diff 60002, 8 3957 Reviewed date:06/10/2024 03:12:06 PM Interpretation: Performing Lab: [...] 9.2-12.0 FL Review Auto Diff Conf Chest PA/Lat-74726 Reviewed date:06/10/2024 03:12:06 PM Interpretation: Performing Lab: Notes/Report: [id number]&org=iSite Urine Drug Screen (cup read) - 21031 Reviewed date:07/09/2024 03:57:25 PM Interpretation: Performing Lab: Notes/Report: OXY + Urine Confirmation Panel (in strument) - [id number] Reviewed date:07/14/2024 02:46:13 PM Interpretation: Performing Lab: Notes/Report: 6-Acetylmorphine 0 <6 ng/mL N This geovanni t was developed and its performance characteristics determined by [facility]. It has not been cleared or approved by the U.S. Food and Drug Administration. 7-Aminoclonazepam 0 <60 ng/mL N This te st was developed and its performance characteristics determined by [facility]. It has not been cleared or approved by the U.S. Food and Drug Administration. Alprazolam 0 <60 ng/mL N This test was developed and its performance characteristics determined by [facility]. It has not been cleared or approved by the U.S. Food and Drug Administration. Amphetamine 0 <75 ng/mL N This test was developed and its performance characteristics determined by [facility]. It has not been cleared or approved by the U.S. Food and Drug Administration. aOH-Alprazolam 0 <60 ng/mL N This test was developed and its performance characteristics determined by [facility]. It has not been cleared or approved by the U.S. Food and Drug Administration. Buprenorphine 0.0 <7.5 ng/mL N This test w as developed and its performance characteristics determined by [facility]. It has not been cleared or approved by the U.S. Food and Drug Administration. Norbuprenorphine 0.0 <37.5 ng/mL N This te st was developed and its performance characteristics determined by [facility]. It has not been cleared or approved by the U.S. Food and Drug Administration. Carisoprodol 0 <75 ng/mL N This test wa s developed and its performance characteristics determined by [facility]. It has not been cleared or approved by the U.S. Food and Drug Administration. Codeine 0 <75 ng/mL N This test was developed and its performance characteristics determined by [facility]. It has not been cleared or approved by the U.S. Food and Drug Administration. EDDP 0 <75 ng/mL N This test was developed and its performance characteristics determined by [facility]. It has not been cleared or approved by the U.S. Food and Drug Administration. Fentanyl 0 <6 ng/mL N This test was developed and its performance characteristics determined by [facility]. It has not been cleared or approved by the U.S. Food and Drug Administration. Hydrocodone 6 <75 ng/mL N This test was developed and its performance characteristics determined by [facility]. It has not been cleared or approved by the U.S. Food and Drug Administration. Hydromorphone 0 <75 ng/mL N This test w as developed and its performance characteristics determined by [facility]. It has not been cleared or approved by the U.S. Food and Drug Administration. Lorazepam 0 <60 ng/mL N This test was developed and its performance characteristics determined by [facility]. It has not been cleared or approved by the U.S. Food and Drug Administration. MDMA 2 <75 ng/mL N This test was developed and its performance characteristics determined by [facility]. It has not been cleared or approved by the U.S. Food and Drug Administration. Meperidine 0.0 <37.5 ng/mL N This test was developed and its performance characteristics determined by [facility]. It has not been cleared or approved by the U.S. Food and Drug Administration. Meprobamate 0 <75 ng/mL N This test was developed and its performance characteristics determined by [facility]. It has not been cleared or approved by the U.S. Food and Drug Administration. Methamphetamine 0 <75 ng/mL N This test was developed and its performance characteristics determined by [facility]. It has not been cleared or approved by the U.S. Food and Drug Administration. Methadone 0 <75 ng/mL N This test was developed and its performance characteristics determined by [facility]. It has not been cleared or approved by the U.S. Food and Drug Administration. Morphine 29 <75 ng/mL N This test was developed and its performance characteristics determined by [facility]. It has not been cleared or approved by the U.S. Food and Drug Administration. Nordiazepam 0 <60 ng/mL N This test was developed and its performance characteristics determined by [facility]. It has not been cleared or approved by the U.S. Food and Drug Administration. Norfentanyl 0 <6 ng/mL N This test was developed and its performance characteristics determined by [facility]. It has not been cleared or approved by the U.S. Food and Drug Administration. Normeperidine 0.0 <37.5 ng/mL N This test was developed and its performance characteristics determined by [facility]. It has not been cleared or approved by the U.S. Food and Drug Administration. O-desmethyltramadol 0 <75 ng/mL N This test was developed and its performance characteristics determined by [facility]. It has not been cleared or approved by the U.S. Food and Drug Administration. Oxazepam 0 <60 ng/mL N This test was developed and its performance characteristics determined by [facility]. It has not been cleared or approved by the U.S. Food and Drug Administration. Oxycodone 639.0 <37.5 ng/mL H This test was developed and its performance characteristics determined by [facility]. It has not been cleared or approved by the U.S. Food and Drug Administration. Oxymorphone 132 <75 ng/mL H This test was developed and its performance characteristics determined by [facility]. It has not been cleared or approved by the U.S. Food and Drug Administration. Phencyclidine 0.0 <7.5 ng/mL N This test w as developed and its performance characteristics determined by [facility]. It has not been cleared or approved by the U.S. Food and Drug Administration. Tapentadol 6.7 <37.5 ng/mL N This test was developed and its performance characteristics determined by [facility]. It has not been cleared or approved by the U.S. Food and Drug Administration. Temazepam 0 <60 ng/mL N This test was developed and its performance characteristics determined by [facility]. It has not been cleared or approved by the U.S. Food and Drug Administration. Tramadol 0 <75 ng/mL N This test was developed and its performance characteristics determined by [facility]. It has not been cleared or approved by the U.S. Food and Drug Administration. Norhydrocodone 0 <75 ng/mL N This test was developed and its performance characteristics determined by [facility]. It has not been cleared or approved by the U.S. Food and Drug Administration. Noroxycodone >2500 <38 ng/mL > This test wa s developed and its performance characteristics determined by [facility]. It has not been cleared or approved by the U.S. Food and Drug Administration. Pregabalin 3573 <225 ng/mL H This test was developed and its performance characteristics determined by [facility]. It has not been cleared or approved by the U.S. Food and Drug Administration. Gabapentin 0 <225 ng/mL N This test was developed and its performance characteristics determined by [facility]. It has not been cleared or approved by the U.S. Food and Drug Administration. Benzoylecgonine 0.5 <37.5 ng/mL N This geovanni t was developed and its performance characteristics determined by [facility]. It has not been cleared or approved by the U.S. Food and Drug Administration. 4-Hydroxy Xylazine 0 <25 ng/mL N This t est was developed and its performance characteristics determined by [facility]. It has not been cleared or approved by the U.S. Food and Drug Administration. zzzCT Outside CD Reviewed date:05/28/2024 06:03:13 PM Interpretation: Performing Lab: Notes/Report: [id number]&org=iSite Urine Drug Screen (cup read) - [id number] Reviewed date:05/19/2024 08:40:03 AM Interpretation: Performing Lab: Notes/Report: AMP - SHON - BUP - BZO - MDMA - OPI - PCP - OXY - MTD - MAMP - Urine Confirmation Panel (in strument) - [id number] Reviewed date:06/01/2024 07:46:47 AM Interpretation: Performing Lab: Notes/Report: 6-Acetylmorphine 0 <6 ng/mL N This geovanni t was developed and its performance characteristics determined by [facility]. It has not been cleared or approved by the U.S. Food and Drug Administration. 7-Aminoclonazepam 0 <60 ng/mL N This te st was developed and its performance characteristics determined by [facility]. It has not been cleared or approved by the U.S. Food and Drug Administration. Alprazolam 0 <60 ng/mL N This test was developed and its performance characteristics determined by [facility]. It has not been cleared or approved by the U.S. Food and Drug Administration. Amphetamine 0 <75 ng/mL N This test was developed and its performance characteristics determined by [facility]. It has not been cleared or approved by the U.S. Food and Drug Administration. aOH-Alprazolam 0 <60 ng/mL N This test was developed and its performance characteristics determined by [facility]. It has not been cleared or approved by the U.S. Food and Drug Administration. Buprenorphine 0.0 <7.5 ng/mL N This test w as developed and its performance characteristics determined by [facility]. It has not been cleared or approved by the U.S. Food and Drug Administration. Norbuprenorphine 0.0 <37.5 ng/mL N This te st was developed and its performance characteristics determined by [facility]. It has not been cleared or approved by the U.S. Food and Drug Administration. Carisoprodol 0 <75 ng/mL N This test wa s developed and its performance characteristics determined by [facility]. It has not been cleared or approved by the U.S. Food and Drug Administration. Codeine 0 <75 ng/mL N This test was developed and its performance characteristics determined by [facility]. It has not been cleared or approved by the U.S. Food and Drug Administration. EDDP 0 <75 ng/mL N This test was developed and its performance characteristics determined by [facility]. It has not been cleared or approved by the U.S. Food and Drug Administration. Fentanyl 0 <6 ng/mL N This test was developed and its performance characteristics determined by [facility]. It has not been cleared or approved by the U.S. Food and Drug Administration. Hydrocodone 0 <75 ng/mL N This test was developed and its performance characteristics determined by [facility]. It has not been cleared or approved by the U.S. Food and Drug Administration. Hydromorphone 0 <75 ng/mL N This test w as developed and its performance characteristics determined by [facility]. It has not been cleared or approved by the U.S. Food and Drug Administration. Lorazepam 0 <60 ng/mL N This test was developed and its performance characteristics determined by [facility]. It has not been cleared or approved by the U.S. Food and Drug Administration. MDMA 0 <75 ng/mL N This test was developed and its performance characteristics determined by [facility]. It has not been cleared or approved by the U.S. Food and Drug Administration. Meperidine 0.0 <37.5 ng/mL N This test was developed and its performance characteristics determined by [facility]. It has not been cleared or approved by the U.S. Food and Drug Administration. Meprobamate 0 <75 ng/mL N This test was developed and its performance characteristics determined by [facility]. It has not been cleared or approved by the U.S. Food and Drug Administration. Methamphetamine 0 <75 ng/mL N This test was developed and its performance characteristics determined by [facility]. It has not been cleared or approved by the U.S. Food and Drug Administration. Methadone 0 <75 ng/mL N This test was developed and its performance characteristics determined by [facility]. It has not been cleared or approved by the U.S. Food and Drug Administration. Morphine 0 <75 ng/mL N This test was developed and its performance characteristics determined by [facility]. It has not been cleared or approved by the U.S. Food and Drug Administration. Nordiazepam 0 <60 ng/mL N This test was developed and its performance characteristics determined by [facility]. It has not been cleared or approved by the U.S. Food and Drug Administration. Norfentanyl 0 <6 ng/mL N This test was developed and its performance characteristics determined by [facility]. It has not been cleared or approved by the U.S. Food and Drug Administration. Normeperidine 0.0 <37.5 ng/mL N This test was developed and its performance characteristics determined by [facility]. It has not been cleared or approved by the U.S. Food and Drug Administration. O-desmethyltramadol 0 <75 ng/mL N This test was developed and its performance characteristics determined by [facility]. It has not been cleared or approved by the U.S. Food and Drug Administration. Oxazepam 0 <60 ng/mL N This test was developed and its performance characteristics determined by [facility]. It has not been cleared or approved by the U.S. Food and Drug Administration. Oxycodone 0.0 <37.5 ng/mL N This test was developed and its performance characteristics determined by [facility]. It has not been cleared or approved by the U.S. Food and Drug Administration. Oxymorphone 0 <75 ng/mL N This test was developed and its performance characteristics determined by [facility]. It has not been cleared or approved by the U.S. Food and Drug Administration. Phencyclidine 0.0 <7.5 ng/mL N This test w as developed and its performance characteristics determined by [facility]. It has not been cleared or approved by the U.S. Food and Drug Administration. Tapentadol 3.1 <37.5 ng/mL N This test was developed and its performance characteristics determined by [facility]. It has not been cleared or approved by the U.S. Food and Drug Administration. Temazepam 0 <60 ng/mL N This test was developed and its performance characteristics determined by [facility]. It has not been cleared or approved by the U.S. Food and Drug Administration. Tramadol 0 <75 ng/mL N This test was developed and its performance characteristics determined by [facility]. It has not been cleared or approved by the U.S. Food and Drug Administration. Norhydrocodone 0 <75 ng/mL N This test was developed and its performance characteristics determined by [facility]. It has not been cleared or approved by the U.S. Food and Drug Administration. Noroxycodone 0 <38 ng/mL N This test wa s developed and its performance characteristics determined by [facility]. It has not been cleared or approved by the U.S. Food and Drug Administration. Pregabalin 0 <225 ng/mL N This test was developed and its performance characteristics determined by [facility]. It has not been cleared or approved by the U.S. Food and Drug Administration. Gabapentin 63219 <225 ng/mL H This test was developed and its performance characteristics determined by [facility]. It has not been cleared or approved by the U.S. Food and Drug Administration. Benzoylecgonine 0.0 <37.5 ng/mL N This geovanni t was developed and its performance characteristics determined by [facility]. It has not been cleared or approved by the U.S. Food and Drug Administration. 4-Hydroxy Xylazine 0 <25 ng/mL N This t est was developed and its performance characteristics determined by [facility]. It has not been cleared or approved by the U.S. Food and Drug Administration. Tox Results Reviewed date:06/01/2024 07:46:59 AM Interpretation: Performing Lab: Notes/Report: WBC Auto Diff--[id number] Reviewed date:06/10/2024 03:12:06 PM Interpretation: Performing Lab: Notes/Report: Added by Discern Rules Neutro Auto% 74.9 40.0-70.0 % HI Lymph Auto% 13.9 22.0-44.0 % LOW [place] Auto% 9.5 3.0-7.0 % HI Eos Auto% 1.0 2.0-4.0 % LOW Baso Auto% 0.4 0.0-1.0 % NRBC% .00 .00-.20 /100 intact WBC's Neutro Abs 7.29 .80-7.70 Absolute Neutrophil Count 7290 NA Lymph Abs 1.36 .10-4.10 [place] Abs .93 .20-1.00 Eos Abs .10 .00-.40 Baso Abs .04 .00-.20 NRBC# .00 .00-.20 Imm Gran Abs .03 .00-.10 Imm Gran% .3 .0-.4 % Chest PA/Lat-35480 Reviewed date:06/12/2024 07:43:44 AM Interpretation: Performing Lab: Notes/Report: See Below For Report Chest PA/Lat Diagnosis Description: Post-traumatic osteoarthritis, right ankle and foot Read See Below For Report Glucometer WBG--[id number] Reviewed date:06/12/2024 07:43:28 AM Interpretation: Performing Lab: Notes/Report: Glucometer WBG 105 65-110 MG/DL Meter: [id number]~Retail Cashier Associate: [id number] JANJONJazmin BENI Surgery Unlisted Reviewed date:06/15/2024 01:42:44 PM Interpretation: Performing Lab: Notes/Report: This procedure was dictated and transcribed outside of the [employer] system. The results may be found in the patient's physical chart. FINAL REPORT Read This procedure was dictated and transcribed outside of the [employer] system. The results may be found in the patient's physical chart. 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) [facility] Referring Provider First Name Sangeeta Referring Provider Last Name Jennifer Ramirez Referring Provider Speciality Pain Medic ine Referred Provider [facility] Referred Provider Specialty Preventive M edicine Referral Priority Routine Medications Medication SIG (Take, Route, Frequency, Duration) Notes Start Date End Date Status Cephalexin 500 MG Capsule 1 capsule Oral ly every 6 hrs Not-Taking clonazePAM 1 MG Tablet TAKE 1 TABLET BY MOUTH EVERY 8 HOURS NEEDED FOR ANXIETY Oral; Duration: 3 Days Not-Taking Effexor Active Meloxicam 7.5 MG Tablet 1 tablet Orally twice a day; Duration: 30 days 05/19/2024 Active HYDROmorphone HCl 4 MG Tablet TAKE 1 TABLET BY MOUTH EVERY 3 HOURS FOR 5 DAYS Oral; Duration: 5 Days Not-Taking Methocarbamol 750 MG Tablet 1 tablet Orally every 6-8 hrs; Duration: 30 days As needed Not to exceed 3 per day 05/19/2024 Not-Taking Naproxen 500 MG Tablet TAKE 1 TABLET BY MOUTH TWICE DAILY NEEDED FOR PAIN Oral; Duration: 10 Days Not-Taking Cyclobenzaprine HCl 10 MG Tablet TAKE 1 TABLET BY MOUTH THREE TIMES DAILY NEEDED FOR MUSCLE SPASM FOR 10 DAYS Oral; Duration: 10 Days Not-Taking Gabapentin 300 MG Capsule 2 caps Orally 3 times a day Not-Taking Gabapentin 300 MG Capsule 1 capsule Oral ly Twice a day; Duration: 15 days 06/15/2024 Not-Taking HYDROcodone-Acetaminophen 5-325 MG Tablet TAKE 1 TABLET BY MOUTH EVERY 6 HOURS NEEDED FOR PAIN Oral; Duration: 2 Days Not-Taking Social History Section Notes: non smoker denies alcohol denies street drugs Yes to rehab/alcohol currently not working applying for disability non smoker denies alcohol denies street drugs Yes to rehab/alcohol currently not working applying for disability non smoker denies alcohol denies street drugs Yes to rehab/alcohol currently not working applying for disability non smoker denies alcohol denies street drugs Yes to rehab/alcohol currently not working applying for disability non smoker denies alcohol denies street drugs Yes to rehab/alcohol currently not working applying for disability non smoker denies alcohol denies street drugs Yes to rehab/alcohol currently not working applying for disability non smoker denies alcohol denies street drugs Yes to rehab/alcohol currently not working applying for disability non smoker denies alcohol denies street drugs Yes to rehab/alcohol currently not working applying for disability non smoker denies alcohol denies street drugs Yes to rehab/alcohol currently not working applying for disability non smoker denies alcohol denies street drugs Yes to rehab/alcohol currently not working applying for disability Problems Problem Type SNOMED Code ICD Code Onset Dates Problem Status W/U Status Risk Notes Problem Chronic pain syndrome (943928514) Chronic pain syndrome (G89.4) Active confirmed Problem Arthralgia of the ankle and/or foot (454186243) Pain in right ankle and joints of right foot (M25.571) Active confirmed Problem Lumbosacral spondylosis without myelopathy (98449678) 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) Active confirmed Problem Amputated below knee (889600071) Status post below knee amputation of right lower 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) Active confirmed Problem Peripheral neuropathy (527291169) Peripheral neuropathy (G62.9) Active confirmed Problem Myalgia (24876467) Myalgia (M79.10) Active confirmed Problem Acquired polyneuropathy (59219384) Acquired polyneuropathy (G62.9) Active confirmed Problem Lumbosacral radiculopathy (0614852) Lumbosacral radiculopathy (M54.17) Active confirmed Problem Amputated below knee (730636055) Status post below-knee amputation of right lower 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) Active confirmed Problem Long-term current use of drug therapy (666824307) Analgesic use (Z79.899) Active confirmed Problem Localized, secondary osteoarthritis of the ankle and/or foot ([id number]) Post-traumatic arthritis of ankle, right (M19.171) Active confirmed Problem Avascular necrosis of right talus (M87.071) Active [...] 07/23/2024 Encounters Encounter Location Date Provider Diagnosis [facility] [place] [address] [place] [address] 05/19/2024 Sangeeta barry Chronic pain syndrome G89.4 ; Lumbosacral radiculopathy M54.17 ; 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 ; Myalgia M79.10 ; Pain in right ankle and joints of right foot M25.571 ; Avascular necrosis of right talus M87.071 and Analgesic use Z79.899 [facility] [address] [place] [address] 06/05/2024 Faisal Johnson 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 ; Neuropathic pain of right foot M79.2 ; Encounter for preprocedural laboratory examination Z01.812 and Encounter for other preprocedural examination Z01.818 [facility] [address] [place] [address], [place] [address] 06/11/2024 Faisal Johnson [facility] [address] [place] [address], [place] [address] 06/15/2024 Faisal Johnson Status post below knee amputation of right lower extremity Z89.511 [facility] [place] [address] [place] [address] 06/23/2024 Sangeeta barry Chronic pain syndrome G89.4 ; Lumbosacral radiculopathy M54.17 ; 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 ; Myalgia M79.10 ; Pain in right ankle and joints of right foot M25.571 ; Avascular necrosis of right talus M87.071 ; Analgesic use Z79.899 ; Peripheral neuropathy G62.9 and Status post below-knee amputation of right lower extremity Z89.511 [facility] [address] [place] [address] 06/24/2024 Faisal Alex Status post below knee amputation of right lower extremity Z89.511 [facility] [address] [place] [address] 07/03/2024 Faisal Alex Status post below knee amputation of right lower extremity Z89.511 [facility] [place] [address] [place] [address] 07/09/2024 Kellie Calderón Chronic pain syndrome G89.4 ; Lumbosacral radiculopathy M54.17 ; 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 ; Avascular necrosis of right talus M87.071 ; Pain in right ankle and joints of right foot M25.571 ; Peripheral neuropathy G62.9 ; Myalgia M79.10 ; Status post below-knee amputation of right lower extremity Z89.511 and Analgesic use Z79.899 [facility] [address] [place] [address] 07/17/2024 Faisal Alex Status post below-knee amputation of right lower extremity Z89.511 [facility] [place] [address] [place] [address] 07/23/2024 Kellie Calderón Chronic pain syndrome G89.4 ; Lumbosacral radiculopathy M54.17 ; 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 ; Avascular necrosis of right talus M87.071 ; Pain in right ankle and joints of right foot M25.571 ; Peripheral neuropathy G62.9 ; Myalgia M79.10 ; Status post below-knee amputation of right lower extremity Z89.511 and Analgesic use Z79.899 [facility] [address] [place] [address] 05/19/2024 Sangeeta Lyuksyutova-Almaz ce [facility] [address] [facility] [address] 05/28/2024 Raza Devin [facility] [address] [facility] [place] [address] 06/05/2024 Sangeeta Lyuksyutova-Almaz ce [facility] [address] [place] [place] [address] 06/09/2024 Sangeeta Lyuksyutova-Almaz ce [facility] [address] [place] [address] 06/10/2024 Sangeeta Lyuksyutova-Almaz ce [facility] [address] [facility] [place] [address] 06/16/2024 Sangeeta Lyuksyutova-Almaz ce [facility] [address] [place] [address] 06/18/2024 Faisal Johnson [facility] [place] [address] [facility] [place] [address] 06/24/2024 Sangeeta Lyuksyutova-Almaz ce 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 [facility] [place] [address] [facility] [place] [address] 07/09/2024 Sangeeta Lyuksyutova-Almaz ce Lumbosacral radiculopathy M54.17 [facility] [place] [address] [facility] [place] [address] 07/13/2024 Sangeeta Lyuksyutova-Almaz ce Lumbosacral radiculopathy M54.17 [facility] [place] [address] [facility] [place] [address] 07/13/2024 Sangeeta Lyuksyutova-Almaz ce [facility] [place] [address] [facility] [place] [address] 07/20/2024 Meri Bryanna Lumbosacral radiculopathy M54.17 Assessments Encounter Date Diagnosis [...] has discussed below-knee amputation with doctors in [place] and wishes to have that done here. [...] has discussed below-knee amputation with doctors in [place] and wishes to have that done here. [...] is applied. I will see him in [place] a week for stitch removal. He will continue managing his pain with oxycodone under the direction of the pain clinic. Will set him up with a prosthetists to get a stump jumpbasting facing baster and begin moving toward a prosthesis. 06/24/2024 Spondylosis of lumbosacral region without myelopathy or radiculopathy (ICD-10 - M47.817) 07/03/2024 Status post below knee amputation of right lower extremity (ICD-10 - Z89.511) There is a very small dehiscence. There is just a touch of drainage and some erythema. I will give him a prescription for cephalexin. He is still to get his stump jumpbasting facing baster. I will see him back in 2 [...] which we will send over to the [place] pharmacy for him. His oxycodone was temporarily [...] behavior are noted. Last UDS and [place] INVENTORY CLERK reviewed today. Patient is advised that best [...] has discussed below-knee amputation with doctors in [place] and wishes to have that done here. [...] has discussed below-knee amputation with doctors in [place] and wishes to have that done here. [...] (ICD-10 - Z79.899) 05/19/2024 Other Soila Weiner, donovan scribing for Dr. Moore. Regine, Dr. Moore, personally performed the services described in this documentation, as scribed by Soila Gaspar, and it is both accurate and complete. 06/23/2024 Other Soila Weiner am scribing for Dr. Moore. Dr. Oscar Weiner, personally performed the services described in this documentation, as scribed by Soila Gaspar, and it is both accurate and complete. Plan Of Treatment Pending Test Test Name Order Date Lumbosacral Spine Comp AP/Lat w/ [id number] 10 05/19/2024 MRI Lumbar Spine w/o Cont-[id number] 05/19/19 Electrocardiogram 12 Lead [id number] 06/05/2024 Insurance Providers Payer Name Payer Address Payer Phone Subscriber Number Group Number Insured Name Patient Relationship to Insured Coverage Start Date Coverage End Date [employer] [address] [place] [address] [id number] Trevor Martin Self - patient is the insured Medical (General) History Medical History History ICD Code migraine headaches seizures bronchitis Depression Arthritis Prostate Problems kidney stones Chicken Pox Pneumonia Back Trouble hypertension Surgical History Surgery Date(Month/Year) right arm fx hardware right ankle surgery right hand 2 fingers amputated and reatt ached appendectomy hernia repair Right Elbow Right BKA 06/11/2024 Hospitalization History Reason Date(Month/Year) [facility] Post Surgical Pain 06/2024 Surgical Hx
[2024-10-20 18:30] VITALS: PULSE 108; RESP 16; TEMP 36.7; O2SAT 97
--- NOTE | 2024-10-20 19:11 | W.ED.EXTPRO ---
HPI - Extremity Problem General: Chief complaint: Extremity Injury, Lower Stated complaint: Prosthetic hurting Time Seen by Provider: 10/20/24 19:06 Source: patient Mode of arrival: ambulatory Limitations: no limitations History of Present Illness: 48-year-old male has had a history of right lower leg amputation he has a new prosthetic he states been causing him some increased pain states he has pain at his stump he rates an 8 out of 10 currently denies any redness denies any sores denies any fevers Associated symptoms: Deny chest pain, fever(s) or rash Related Data Home Medications ?Medication ?Instructions ?Recorded ?Confirmed venlafaxine 225 mg tablet,extended 225 mg PO QAM 09/11/23 06/18/24 release 24 hr cyclobenzaprine 10 mg tablet 10 mg PO TID 06/18/24 06/18/24 Previous Rx's ?Medication ?Instructions ?Recorded hydrocodone 5 mg-acetaminophen 325 1 tab PO Q8H PRN pain #15 tabs 10/14/24 mg tablet Allergies Allergy/AdvReac Type Severity Reaction Status Date / Time atomoxetine (From Strattera) Allergy ADR-Shakine Verified 10/14/24 19:36 ss escitalopram (From Lexapro) Allergy Unknown Verified 10/14/24 19:36 Review of Systems Const: Denies: fever(s), chills, body aches or change in appetite ENMT: Denies: throat pain or dental pain Card: Denies: chest pain Resp: Denies: dyspnea GI: Denies: abdominal pain, nausea, vomiting or diarrhea Musc: Reports: extremity pain; Denies: neck pain or back pain Skin/Breast: Denies: rash Neuro: Denies: headache(s) PFSH ED PFSH: Medical History Sepsis Post-operative infection Post-operative pain Post-operative pain Alcohol abuse No significant past medical history Surgical History (Updated 08/15/24 @ 10:34 by Sandra Mehta MD) No significant past surgical history Physical Exam Const: COMMON NORMALS: no acute distress, patient oriented x3 and healthy appearing HENMT: COMMON NORMALS: normocephalic and atraumatic HEAD & SCALP: normocephalic and atraumatic Eye: COMMON NORMALS: conjunctivae normal CONJUNCTIVA: Yes conjunctivae normal Neck/C-Spine: COMMON NORMALS: full ROM and supple Chest: COMMONS NORMALS: normal inspection of the chest Resp: COMMON NORMALS: normal respiratory effort Cardio: COMMON NORMALS: regular rate RATE: regular rate Extremity: COMMON NORMALS: normal to inspection and full ROM NARRATIVE EXTREMITY EXAM: BKA to right leg no erythema no sores no warmth to touch Neuro: COMMON NORMALS: patient oriented x3, moves all extremities and no focal motor deficits Psych: COMMON NORMALS: mental status grossly normal, Normal thought process present and cooperative THOUGHT PROCESS: Normal thought process present Skin: COMMON NORMALS: no rashes or lesions noted and no wounds GENERAL SKIN EXAM: no rashes or lesions noted Course Vital Signs: Vital signs: Vital Signs Temperature 98.1 F 10/20/24 18:30 Pulse Rate 108 H 10/20/24 18:30 Respiratory Rate 16 10/20/24 18:30 Pulse Oximetry 97 10/20/24 18:30 Oxygen Delivery Me thod Room Air 10/20/24 18:30 MDM - Extremity (Nontraumatic) Medical Decision Making Patient presents here with pain in his right lower leg well-appearing here no signs of infection did give him a shot of morphine he stable for discharge follow-up with PCP return if worsening No radiology studies performed this visit Discharge Plan Discharge Patient Disposition: Home Clinical Impression: Chronic pain syndrome Condition: Stable Prescriptions: No Action venlafaxine 225 mg Tablet Extended Release 24hr 225 mg PO QAM hydrocodone-acetaminophen 5-325 mg tablet 1 tab PO Q8H PRN (Reason: pain) Qty: 15 0RF cyclobenzaprine 10 mg tablet 10 mg PO TID Discharge Orders: Discharge ED (Routine); Ordered 10/20/24 Ordered By: Lonnie Carrasco Referrals: Juwan Mishra APRN [Primary Care Provider, Nurse Practitioner] Discharge Diet: Advance as tolerated Discharge Activity: Resume usual activity Patient Instructions: Chronic Pain (ED) Print Language: Syriac Coding Level of Care Code ED Management Nurse Rn for Chris Georges
[2024-10-20 19:22] VITALS: RESP 17; O2SAT 96
[2024-10-20] MEDS: morphine 4 mg/mL SDV 1 mL IM (19:22)
[2024-10-20 19:30] VITALS: BP 149/87; PULSE 103; O2SAT 97
== END 2024-10-20 19:31 | disposition home or self-care (01) ==
PROVIDERS: Emergency Provider Emergency Medicine; PCP Nurse Practitioner Family
DX: G89.4 Chronic pain syndrome (principal)
CPT/HCPCS: 96372; 99284; J2270